=== PATIENT | male | born 1950 | race Caucasian/White ===

== ENCOUNTER → 2016-10-14 | Outpatient (CLI) | payer OTHER ==
[~2016-10-14] MED LIST: ASPEC81 PO; ATOR-24 PO; CHOL200027 PO; INSDGI SC; LOSA25TA18 PO; LSX/40 PO; METO1TAB69 PO; MULT-506 PO
[2016-10-14 17:30] LABS: ALT/SGPT 30 U/L (12-78); BLOOD UREA NITROGEN 43 mg/dl (7-18); CALCIUM 8.9 mg/dl (8.5-10.1); CARBON DIOXIDE 28 mmol/L (21-32); CHLORIDE 106 mmol/L (98-107); CHOLESTEROL 155 mg/dl (0-200); GLUCOSE 99 mg/dl (70-99); POTASSIUM 4.4 mmol/L (3.5-5.1); SODIUM 140 mmol/L (136-145)
[2016-10-14 17:34] LABS: HEMATOCRIT 36.1 % (42-52); MEAN CELL VOLUME 89.1 fL (80-100); MEAN CORPUSCULAR HEMOGLOBIN 30.1 pg (25-34); MEAN CORPUSCULAR HGB CONC 33.8 g/dl (32-36); MEAN PLATELET VOLUME 10.5 fL (7.4-10.4); PLATELET COUNT 151 K/uL (130-400); RED BLOOD COUNT 4.05 M/uL (4.7-6.1)
[2016-10-14 17:39] LABS: ALB/GLOB RATIO 0.8 (0.9-2); ALKALINE PHOSPHATASE 113 U/L (45-117); AST/SGOT 18 U/L (15-37); HDL CHOLESTEROL 39 mg/dl; LDL CHOLESTEROL CALCULATED 90 mg/dl; TRIGLYCERIDES 129 mg/dl (0-150); VERY LOW DENSITY LIPOPROT CALC 26 mg/dl
[2016-10-15 06:38] LABS: ESTIMATED AVERAGE GLUCOSE 194 mg/dl; HA1C FLAG Normal (Normal)
== END | disposition home or self-care (01) ==
LOC: C.LABBFT 16:40
PROVIDERS: ATTEND Internal Medicine
DX: E11.21 Type 2 diabetes mellitus with diabetic nephropathy (principal); E78.5 Hyperlipidemia, unspecified; I10 Essential (primary) hypertension; Z12.5 Encounter for screening for malignant neoplasm of prostate; E55.9 Vitamin D deficiency, unspecified

== ENCOUNTER → 2016-11-25 | Outpatient (CLI) | payer OTHER ==
[~2016-11-25] MED LIST changes: +METO100T44 PO; -METO1TAB69 PO
[2016-11-25 12:28] LABS: THYROID STIMULATING HORMONE 3.16 uIu/ml (0.300-4.500)
== END | disposition home or self-care (01) ==
LOC: C.LABBFT 09:32
PROVIDERS: ATTEND Internal Medicine
DX: E03.9 Hypothyroidism, unspecified (principal)

== ENCOUNTER → 2017-04-16 | Outpatient (CLI) | payer OTHER ==
[~2017-04-16] MED LIST changes: -METO100T44 PO; +METO1TAB69 PO
[2017-04-16 12:13] LABS: BASO % 0.1 %; BASO ABS # 0.01 K/uL (0-0.2); COMPLETE YES; EOS % 3.1 %; HEMATOCRIT 40.5 % (42-52); IG% 0.3 %; LYMPH ABS # 2.53 K/uL (1.2-3.4); MEAN CELL VOLUME 92.7 fL (80-100); MEAN CORPUSCULAR HEMOGLOBIN 29.3 pg (25-34); MEAN CORPUSCULAR HGB CONC 31.6 g/dl (32-36); MEAN PLATELET VOLUME 10.3 fL (7.4-10.4); MONO % 4.7 %; NEUT % 57.8 %; PLATELET COUNT 162 K/uL (130-400); RED BLOOD COUNT 4.37 M/uL (4.7-6.1); WHITE BLOOD COUNT 7.45 K/uL (4.8-10.8)
[2017-04-16 13:46] LABS: ESTIMATED AVERAGE GLUCOSE 177 mg/dl; HA1C FLAG Normal (Normal)
[2017-04-16 14:00] LABS: RATIO 1933.3 mcg/mg (0-30.0)
[2017-04-16 14:02] LABS: ALT/SGPT 26 U/L (12-78); BLOOD UREA NITROGEN 42 mg/dl (7-18); BUN/CREATININE RATIO 26.4 (10-20); CALCIUM 9.5 mg/dl (8.5-10.1); CARBON DIOXIDE 29 mmol/L (21-32); CHLORIDE 107 mmol/L (98-107); CHOLESTEROL 128 mg/dl (0-200); GLUCOSE 121 mg/dl (70-99); POTASSIUM 4.9 mmol/L (3.5-5.1); SODIUM 141 mmol/L (136-145); TRIGLYCERIDES 28 mg/dl (0-150); VERY LOW DENSITY LIPOPROT CALC 6 mg/dl
[2017-04-16 14:13] LABS: ALB/GLOB RATIO 0.8 (0.9-2); ALKALINE PHOSPHATASE 97 U/L (45-117); AST/SGOT 17 U/L (15-37); CHOLESTEROL/HDL RATIO 3.7; HDL CHOLESTEROL 35 mg/dl; LDL CHOLESTEROL CALCULATED 87 mg/dl
== END | disposition home or self-care (01) ==
LOC: C.LABBFT 10:58
PROVIDERS: ATTEND Internal Medicine
DX: E11.21 Type 2 diabetes mellitus with diabetic nephropathy (principal)

== ENCOUNTER → 2017-05-30 | Outpatient (CLI) | payer OTHER ==
--- NOTE | 2017-05-30 08:44 | DIAGNOSTIC IMAGING REPORT ---
RENAL ULTRASOUND CLINICAL HISTORY: Hypertension. Chronic kidney disease. COMPARISON STUDY: Renal ultrasound February 03, 2012. TECHNIQUE: Sonography of the kidneys and the urinary bladder was performed. FINDINGS: The right kidney measures 11.3 x 5.9 x 5.3 cm and the left measures 12.1 x 6.1 x 5.7 cm. There is no hydronephrosis. Renal echogenicity, size and cortical thickness are normal. No calculi or masses are identified by sonography. Bladder is unremarkable by sonography. IMPRESSION: Normal renal ultrasound. No hydronephrosis. Electronically signed by: Unruly Sanchez M.D. 05/30/2017 8:43 AM Dictated Date/Time: 05/30/2017 8:42 AM
== END | disposition home or self-care (01) ==
LOC: C.ULTR 07:22
PROVIDERS: ATTEND Internal Medicine Nephrology
DX: I12.9 Hypertensive chronic kidney disease with stage 1 through stage 4 chronic kidney disease, or unspecified chronic kidney disease (principal); N18.1 Chronic kidney disease, stage 1; E55.9 Vitamin D deficiency, unspecified; D63.8 Anemia in other chronic diseases classified elsewhere; R60.9 Edema, unspecified; R80.9 Proteinuria, unspecified

== ENCOUNTER → 2017-06-11 | Outpatient (CLI) | payer OTHER ==
[~2017-06-11] MED LIST changes: +METO100T44 PO; -METO1TAB69 PO
[2017-06-11 08:44] LABS: PATIENT HEIGHT 175.3 cm
[2017-06-11 09:30] LABS: MEAN CELL VOLUME 90.5 fL (80-100); MEAN CORPUSCULAR HEMOGLOBIN 30.1 pg (25-34); MEAN CORPUSCULAR HGB CONC 33.2 g/dl (32-36); MEAN PLATELET VOLUME 10.6 fL (7.4-10.4); PLATELET COUNT 145 K/uL (130-400); RED BLOOD COUNT 4.09 M/uL (4.7-6.1); WHITE BLOOD COUNT 7.03 K/uL (4.8-10.8)
[2017-06-11 09:32] LABS: URINE APPEARANCE CLEAR (CLEAR); URINE BILIRUBIN NEG (NEG); URINE COLOR YELLOW; URINE NITRITE NEG (NEG); URINE SPECIFIC GRAVITY 1.013 (1.000-1.030); UROBILINOGEN NEG (NEG)
[2017-06-11 09:34] LABS: MANUAL MICROSCOPIC REQUIRED? NO; REVIEW REQ? NO
[2017-06-11 09:49] LABS: CREATININE, URINE 28.1 mg/dl; URINE PROTIEN/CREAT RATIO 1.7 (0-0.2); URINE TOTAL PROTEIN 48.9 mg/dl (0-11.9)
[2017-06-11 10:04] LABS: ALT/SGPT 25 U/L (12-78); BLOOD UREA NITROGEN 36 mg/dl (7-18); BUN/CREATININE RATIO 25.2 (10-20); CALCIUM 9.1 mg/dl (8.5-10.1); CARBON DIOXIDE 27 mmol/L (21-32); CHLORIDE 110 mmol/L (98-107); CREATININE 1.43 mg/dl (0.60-1.40); GLUCOSE 94 mg/dl (70-99); SODIUM 142 mmol/L (136-145)
[2017-06-11 10:07] LABS: ALB/GLOB RATIO 0.8 (0.9-2); ALKALINE PHOSPHATASE 100 U/L (45-117); AST/SGOT 19 U/L (15-37)
[2017-06-11 10:30] LABS: CREATININE, URINE 73.8 mg/dl; URINE TOTAL PROTEIN 75.7 mg/dl (0-11.9)
[2017-06-11 11:20] LABS: CREATININE 1.44 mg/dl (0.6-1.4); URINE TOTAL PROTEIN CALC 1457.2 mg/24 hr (0-149.1)
[2017-06-13 07:15] LABS: ALBUMIN 3.6 G/DL (3.8-4.8); ALBUMIN % 84.18 %; ALPHA-2-GLOBULIN % 2.49 %; CREATININE UR 35 MG/DL (20-370); FREE KAPPA 71.1 MG/L (3.3-19.4); FREE KAPPA/LAMBDA RATIO 1.82 (0.26-1.65); FREE LAMBDA 39.1 MG/L (5.7-26.3); GAMMA GLOBULIN 1.2 G/DL (0.8-1.7); GAMMA GLOBULIN % 5.49 %
== END | disposition home or self-care (01) ==
LOC: C.LAB 08:28
PROVIDERS: ATTEND Internal Medicine Nephrology
DX: I12.9 Hypertensive chronic kidney disease with stage 1 through stage 4 chronic kidney disease, or unspecified chronic kidney disease (principal); N18.1 Chronic kidney disease, stage 1; D63.8 Anemia in other chronic diseases classified elsewhere; R60.9 Edema, unspecified; R80.9 Proteinuria, unspecified; E55.9 Vitamin D deficiency, unspecified

== ENCOUNTER → 2017-11-14 | Outpatient (CLI) | payer OTHER ==
[2017-11-14 12:22] LABS: BASO % 0.1 %; BASO ABS # 0.01 K/uL (0-0.2); EOS ABS # 0.28 K/uL (0-0.5); HEMATOCRIT 38.3 % (42-52); HEMOGLOBIN 12.5 g/dL (14.0-18.0); IG# 0.01 K/uL (0.00-0.02); LYMPH % 28.4 %; LYMPH ABS # 1.98 K/uL (1.2-3.4); MEAN CELL VOLUME 91.4 fL (80-100); MEAN CORPUSCULAR HEMOGLOBIN 29.8 pg (25-34); MEAN CORPUSCULAR HGB CONC 32.6 g/dl (32-36); MEAN PLATELET VOLUME 10.4 fL (7.4-10.4); MONO ABS # 0.42 K/uL (0.11-0.59); NEUT % 61.4 %; NEUT ABS # 4.28 K/uL (1.4-6.5); PLATELET COUNT 134 K/uL (130-400); RED CELL DISTRIBUTION WIDTH CV 13.2 % (11.5-14.5); RED CELL DISTRIBUTION WIDTH SD 44.2 fL (36.4-46.3); WHITE BLOOD COUNT 6.98 K/uL (4.8-10.8)
[2017-11-14 12:41] LABS: HEMOGLOBIN A1C 6.9 % (4.5-5.6)
[2017-11-14 12:54] LABS: ALBUMIN 3.5 gm/dl (3.4-5.0); ALT/SGPT 28 U/L (12-78); BLOOD UREA NITROGEN 40 mg/dl (7-18); CALCIUM 8.8 mg/dl (8.5-10.1); CARBON DIOXIDE 27 mmol/L (21-32); CHOLESTEROL 131 mg/dl (0-200); GLUCOSE 128 mg/dl (70-99); POTASSIUM 4.6 mmol/L (3.5-5.1); SODIUM 141 mmol/L (136-145)
[2017-11-14 12:57] LABS: ALKALINE PHOSPHATASE 98 U/L (45-117); AST/SGOT 15 U/L (15-37); LDL CHOLESTEROL CALCULATED 74 mg/dl; TOTAL PROTEIN 7.4 gm/dl (6.4-8.2)
== END | disposition home or self-care (01) ==
LOC: C.LABBFT 09:54
PROVIDERS: ATTEND Physician Assistant Medical
DX: E11.9 Type 2 diabetes mellitus without complications (principal)

== ENCOUNTER 2021-01-23 23:50 | Inpatient (IN) ==
[2021-01-24] MEDS ORDERED: ACETAMINOPHEN 1,000 MG/100 ML VIAL IV STA (00:31)
[2021-01-24] MEDS ORDERED: SODIUM CHLORIDE 0.9% 500 ML IV ONE (00:31)
[2021-01-24 00:43] LABS: Basophils # (auto) 0.01 K/uL (0-0.2); Basophils % (auto) 0.2 %; Eosinophils # (auto) 0.01 K/uL (0-0.5); Eosinophils % (auto) 0.2 %; Hematocrit (blood only) 33.2 % (42-52); Hemoglobin 11.3 g/dL (14.0-18.0); Immature Granulocytes # (auto) 0.01 K/uL (0.00-0.02); Immature Granulocytes % (auto) 0.2 %; Lymphocytes # (auto) 0.23 K/uL (1.2-3.4); Lymphocytes % (auto) 4.8 %; Mean Corpuscular Hemoglobin 31.6 pg (25-34); Mean Corpuscular Volume 92.7 fL (80-100); Mean Platelet Volume 9.4 fL (7.4-10.4); Monocytes # (auto) 0.19 K/uL (0.11-0.59); Monocytes % (auto) 3.9 %; Neutrophils # (auto) 4.38 K/uL (1.4-6.5); Neutrophils % (auto) 90.7 %; Platelet Count 125 K/uL (130-400); RDW Coefficient of Variation 13.2 % (11.5-14.5); RDW Standard Deviation 45.5 fL (36.4-46.3); Red Blood Count 3.58 M/uL (4.7-6.1); White Blood Count 4.83 K/uL (4.8-10.8)
[2021-01-24 00:51] LABS: Alanine Aminotransferase 28 U/L (12-78); Albumin Level 3.7 gm/dl (3.4-5.0); Aspartate Aminotransferase 28 U/L (15-37); BUN Creatinine Ratio 20.6 (10-20); Bilirubin Direct 0.2 mg/dl (0-0.2); Blood Urea Nitrogen 85 mg/dl (7-18); Calcium 8.7 mg/dl (8.5-10.1); Carbon Dioxide 23 mmol/L (21-32); Chloride 99 mmol/L (98-107); Creatinine Clr Calc Pharmacy 22.6 ml/min; Est GFR (Non-African American) 13.8 ml/min; Glucose 64 mg/dl (70-99); Magnesium 1.8 mg/dl (1.8-2.4); Potassium 4.2 mmol/L (3.5-5.1); Sodium 134 mmol/L (136-145)
[2021-01-24 00:59] LABS: RBC Morphology Unremarkable
[2021-01-24 01:05] LABS: Albumin Globulin Ratio 0.8 (0.9-2); Alkaline Phosphatase 67 U/L (45-117); Bilirubin,Total 0.6 mg/dl (0.2-1); Creatine Kinase 1442 U/L (39-308); Globulin 4.4 gm/dl (2.5-4.0); Phosphorus 6.1 mg/dl (2.5-4.9); Total Protein 8.1 gm/dl (6.4-8.2); Troponin I < 0.015 ng/ml (0-0.045)
[2021-01-24] MEDS ORDERED: DEXTROSE 50% 50 ML SYRINGE IV ONE ×2 (02:40→07:45)
--- NOTE | 2021-01-24 03:12 | Emergency Department Note ---
Impression & Plan Syncope, Hypoglycemia associated with diabetes, Elevated CPK, CKD (chronic kidney disease) ED Provider Note NAME: CARLA BOLES AGE: 70 SEX: M ARRIVES VIA: Ambulance INFORMANT: Patient, ED PROVIDER(S): Osvaldo Ribeiro MD CHIEF COMPLAINT: Hypoglycemia PLAN: Disposition: MEDICAL DECISION MAKING: The patient is a pleasant 70-year-old gentleman with a past medical history of hypertension, hyperlipidemia, diabetes who presents to the emergency department for evaluation after having syncopal episode found to be hypoglycemic by EMS which occurs in the setting of the patient's report of having decreased oral intake and taking bowel prep in preparation for colonoscopy that was scheduled for tomorrow morning. The patient reports despite his decreased oral intake he did take his insulin/Lantus as usual yesterday and today. Patient reports sitt ing at the edge of his bed and then remembers waking up on the ground. He does not feel as though he hit his head and denies any complaints of pain. He does have minor skin tears of bilateral pretibial region of the lower legs without laceration. Otherwise prior to today he denies any fevers, chills, cough, congestion, vomiting. He reports the scheduled colonoscopy is to evaluate for months of ongoing loose stools which she reports occurs anytime he attempts to eat anything. On arrival the patient is fatigued appearing but in no acute distress, afebrile with stable vital signs. He appears clinically dry. He has no focal neurologic deficits. Minor skin tears of bilateral pretibial region of the lower legs without laceration. EKG without overt acute ischemia. CXR without overt acute cardiopulmonary process and similar to prior per my preliminary review.. WBC within normal limits. H/H 11.3/33.2 and platelets 125K approximately prior range of values. Chemistry without metabolic acidosis. Creatinine 4 within patient's baseline range in setting of CKD. Initial chemistry glucose 64. She was treated with D50 and given food. LFTs unremarkable. CPK slightly elevated 1400 in setting of the patient's syncope/fall. Troponin negative/undetectable. CT head negative for acute process per preliminary [facility] report. Patient signed out to Dr. Schultz at change of shift with reevaluation and repeat BSG pending for final disposition. Triage Nursing notes reviewed and agree them. Prior medical records reviewed Vital Signs: reviewed and remarkable for no significant abnormalities Differential diagnosis: Vasovagal event, dehydration, infection, hypoglycemia, electrolyte abnormalities, cardiac sources, intracerebral event, pulmonary embolism, seizure, toxicologic, neurologic, as well as other pathologies. ER treatment provided: See below. Diagnostics interpreted by me: ECG: Sinus rhythm with psvcs, 76 bpm, no ectopy, incomplete right bundle branch block, LVH, no overt ST elevation or depression. Cardiac Monitoring: An order for continuous cardiac monitoring was placed and demonstrated Sinus rhythm with psvcs, 76 bpm, no ectopy. Laboratory studies: See below Imaging studies: [facility] Preliminary Findings Only See Final Report For Complete Findings CT HEAD: Small posterior left parietal scalp hematoma, possibly chronic. No skull fracture is seen. The paranasal sinuses and mastoid air cells are within normal limits. Unremarkable appearance of the brain. No evidence of acute large vessel infarct or intracranial hemorrhage. Radiologist: Kevin Cohen MD Study ready at 02:27 and initial results transmitted at 02:56 HPI: The patient is a pleasant 70-year-old gentleman with a past medical history of hypertension, hyperlipidemia, diabetes who presents emergency department for evaluation after having syncopal episode found to be hypoglycemic by EMS which occurs in the setting of the patient's report of having decreased oral intake and taking bowel prep in preparation for colonoscopy that was scheduled for tomorrow morning. The patient reports despite his decreased oral intake he did take his insulin/Lantus as usual yesterday and today. Patient reports sitting at the edge of his bed and then remembers waking up on the ground. He does not feel as though he hit his head and denies any complaints of pain. He does have minor skin tears of bilateral pretibial region of the lower legs without laceration. Otherwise prior to today he denies any fevers, chills, cough, congestion, vomiting. He reports the scheduled colonoscopy is to evaluate for months of ongoing loose stools which she reports occurs anytime he attempts to eat anything. ROS: See above HPI for pertinent positives & negatives. A total of 10 systems reviewed and were otherwise negative. PAST MEDICAL HISTORY:See Below PAST SURGICAL HISTORY:See Below FAMILY HISTORY:See Below SOCIAL HISTORY:See Below HOME MEDICATIONS:See Below ALLERGIES:See Below VITALS:See Below PHYSICAL EXAMINATION: GENERAL: Awake, alert, fatigued-appearing, in no distress, BMI 44.0. HENT: Normocephalic, atraumatic. Oropharynx with dry mucous membranes and otherwise unremarkable. EYES: Normal conjunctiva. Sclera non-icteric. EOMI. No nystamgus. PEARRL. NECK: Supple. No nuchal rigidity. FROM. No JVD. No C spine tenderness to palpation or step-offs. RESPIRATORY: Clear to auscultation. CARDIAC: Regular rate, normal rhythm. Extremities warm and well perfused. Pulses equal. ABDOMEN: Soft, non-distended. No tenderness to palpation. No rebound or guarding. No masses. RECTAL: Deferred. MUSCULOSKELETAL: Chest examination reveals no tenderness. The back is symmetrical on inspection without obvious abnormality. No TL spine tenderness to palpation or step-offs. There is no CVA tenderness to palpation. No joint edema. LOWER EXTREMITIES: Calves are equal size bilaterally and non-tender. No edema. No discoloration. NEURO: Normal sensorium. No sensory or motor deficits noted. 5/5 strength and SILT x 4 extremities. Cerebellar function intact including [id number], alternating palms, [id number]. Ovsaldo Ribeiro MD Past Med/Surg History Medical History Chronic kidney disease Congestive heart failure Diabetes mellitus, type 2 Diabetic foot ulcer associated with type 2 diabetes mellitus Dyslipidemia Foot drop RT FOOT (WEARS BRACE) Gait disturbance History of diabetic ulcer of foot Hx of gout Hypertension Sleep apnea NO DEVICE CURRENTLY Type 2 diabetes mellitus with retinopathy Vitamin D deficiency Surgical History Amputated toe of right foot History of cataract surgery RT/LEFT History of colonoscopy Family History Mother Pancreatic cancer Breast cancer Family history of diabetes mellitus Father Myocardial infarction Brother Prostate cancer Other No family history of adverse response to anesthesia Denies family history of Coronary heart disease Colorectal cancer Social History Smoking Status: Never smoker Second Hand Exposure: No; Hx Alcohol Use: No Hx Substance Use: No Preferred Language: Citizen Of [place] Communication Ability: Effective Hearing Ability: Normal Maintenance Director Required: No Beliefs That Will Affect Care: None Current Living Situation: Alone current occupational status: disabled Feels Safe at Home: Yes Childhood Exposure to Second-Hand Smoke: No caffeine: No during the past year weight has: remained stable Dental Care, Regularly: Yes Physical Activity Frequency: Does not Exercise Seatbelt Use: always Sunscreen Use: No Assistive Devices: Brace/Splint/Immobilizer, Cane, Denture - Upper, Denture - Lower, Glasses and Walker Allergies Allergies Allergy/AdvReac Type Severity Reaction Status Date / Time metformin Allergy Intermediate GI SYMPTOMS Verified 01/24/21 01:19 isosorbide Allergy Mild Rash Verified 01/24/21 01:19 lisinopril Allergy Unknown CAN'T Verified 01/24/21 01:19 REMEMBER Home Meds Home Medications Medication Instructions Recorded Confirmed acetaminophen 325 mg capsule 325 mg PO QID PRN 04/26/20 01/24/21 Previous Rx's Medication Instructions Recorded pen needle, diabetic 31 gauge x #100 ea 02/10/1910/31" amlodipine [Norvasc] 5 mg PO QAM #30 tab 04/22/20 aspirin 81 mg tablet,delayed 81 mg PO DAILY #90 tab 06/06/20 release loperamide 2 mg tablet 2 mg PO QID PRN #360 tab 07/17/20 metoprolol succinate 100 mg 100 mg PO QAM #90 tab 07/20/20 tablet,extended release 24 hr atorvastatin 40 mg tablet 40 mg PO QPM #90 tab 11/13/20 calcitriol 0.5 mcg capsule 1 mcg PO DAILY #180 cap 12/14/20 furosemide 40 mg tablet 40 mg PO .COMPLEX #360 tab 12/14/20 allopurinol 100 mg tablet 50 mg PO DAILY #15 tab 01/16/21 insulin glargine 100 unit/mL (3 45 unit SQ PM #45 ml 01/16/21 mL) subcutaneous pen Results & Data (ED) Vital Signs Vital Signs - 24 hr 01/23/21 23:58 01/24/21 00:05 01/24/21 00:12 Temperature 37.1 C Temperature Source Oral Pulse Rate 78 75 75 Pulse Rate [Bilateral Apical] Pulse Rate from SpO2 Sensor 76 75 Pulse Rhythm Respiratory Rate 18 21 23 Respiratory Depth Normal Blood Pressure 111/58 L 100/49 L Blood Pressure [Left Arm] Blood Pressure Mean 75 66 Blood Pressure Mean [Left Arm] Pulse Oximetry 99 90 90 Oxygen Delivery Method Room Air Sepsis Recent Fever Within 48 Hours No Sepsis New/Unexplained Change in Mental Status No Sepsis Action Taken by Nursing No Action Required 01/24/21 00:15 01/24/21 00:20 01/24/21 00:30 Temperature Temperature Source Pulse Rate 76 79 79 Pulse Rate [Bilateral Apical] Pulse Rate from SpO2 Sensor 73 80 Pulse Rhythm Respiratory Rate 20 19 27 H Respiratory Depth Blood Pressure 130/71 Blood Pressure [Left Arm] Blood Pressure Mean 90 Blood Pressure Mean [Left Arm] Pulse Oximetry 92 95 Oxygen Delivery Method Sepsis Recent Fever Within 48 Hours Sepsis New/Unexplained Change in Mental Status Sepsis Action Taken by Nursing 01/24/21 00:44 01/24/21 00:50 01/24/21 00:54 Temperature Temperature Source Pulse Rate 82 77 79 Pulse Rate [Bilateral Apical] Pulse Rate from SpO2 Sensor 105 H Pulse Rhythm Respiratory Rate 14 24 23 Respiratory Depth Blood Pressure 149/78 H Blood Pressure [Left Arm] Blood Pressure Mean 101 Blood Pressure Mean [Left Arm] Pulse Oximetry 83 L Oxygen Delivery Method Sepsis Recent Fever Within 48 Hours Sepsis New/Unexplained Change in Mental Status Sepsis Action Taken by Nursing 01/24/21 00:56 01/24/21 01:00 01/24/21 01:01 Temperature Temperature Source Pulse Rate 74 74 Pulse Rate [Bilateral Apical] Pulse Rate from SpO2 Sensor 74 74 Pulse Rhythm Regular Respiratory Rate 25 H 21 Respiratory Depth Blood Pressure 143/75 H Blood Pressure [Left Arm] Blood Pressure Mean 97 Blood Pressure Mean [Left Arm] Pulse Oximetry 88 L 90 Oxygen Delivery Method Room Air Sepsis Recent Fever Within 48 Hours Sepsis New/Unexplained Change in Mental Status Sepsis Action Taken by Nursing 01/24/21 01:10 01/24/21 01:34 01/24/21 01:40 Temperature Temperature Source Pulse Rate 72 76 73 Pulse Rate [Bilateral Apical] Pulse Rate from SpO2 Sensor 72 77 Pulse Rhythm Respiratory Rate 26 H 10 L 20 Respiratory Depth Blood Pressure Blood Pressure [Left Arm] Blood Pressure Mean Blood Pressure Mean [Left Arm] Pulse Oximetry 89 L 87 L Oxygen Delivery Method Sepsis Recent Fever Within 48 Hours Sepsis New/Unexplained Change in Mental Status Sepsis Action Taken by Nursing 01/24/21 01:45 01/24/21 01:50 01/24/21 02:38 Temperature Temperature Source Pulse Rate 73 81 73 Pulse Rate [Bilateral Apical] Pulse Rate from SpO2 Sensor 157 H 75 Pulse Rhythm Respiratory Rate 15 17 26 H Respiratory Depth Blood Pressure 134/78 135/67 Blood Pressure [Left Arm] Blood Pressure Mean 96 89 Blood Pressure Mean [Left Arm] Pulse Oximetry 81 L 94 Oxygen Delivery Method Sepsis Recent Fever Within 48 Hours Sepsis New/Unexplained Change in Mental Status Sepsis Action Taken by Nursing 01/24/21 02:39 01/24/21 02:40 01/24/21 04:08 Temperature Temperature Source Pulse Rate 73 75 Pulse Rate [Bilateral Apical] 77 Pulse Rate from SpO2 Sensor 74 75 Pulse Rhythm Respiratory Rate 21 13 20 Respiratory Depth Blood Pressure Blood Pressure [Left Arm] 163/85 H Blood Pressure Mean Blood Pressure Mean [Left Arm] 111 Pulse Oximetry 95 94 95 Oxygen Delivery Method Sepsis Recent Fever Within 48 Hours Sepsis New/Unexplained Change in Mental Status Sepsis Action Taken by Nursing 01/24/21 04:42 01/24/21 05:49 Temperature Temperature Source Pulse Rate Pulse Rate [Bilateral Apical] 77 82 Pulse Rate from SpO2 Sensor Pulse Rhythm Respiratory Rate 20 20 Respiratory Depth Blood Pressure Blood Pressure [Left Arm] 172/90 H 190/87 H Blood Pressure Mean Blood Pressure Mean [Left Arm] 117 121 Pulse Oximetry 95 95 Oxygen Delivery Method Room Air Room Air Sepsis Recent Fever Within 48 Hours Sepsis New/Unexplained Change in Mental Status Sepsis Action Taken by Nursing Laboratory Data Attestation: I reviewed the patient's lab results. Result diagrams: 01/24/21 00:05 01/24/21 00:05 Lab Results 01/23/21 01/24/21 01/24/21 Range/Units 23:59 00:05 00:05 WBC 4.83 (4.8-10.8) K/uL RBC 3.58 L (4.7-6.1) M/uL Hgb 11.3 L (14.0-18.0) g/dL Hct 33.2 L (42-52) % MCV 92.7 (80-100) fL MCH 31.6 (25-34) pg MCHC 34.0 (32-36) g/dL RDW Std Deviation 45.5 (36.4-46.3) fL RDW Coeff of Millie 13.2 (11.5-14.5) % Plt Count 125 L (130-400) K/uL MPV 9.4 (7.4-10.4) fL Immature Gran % (Auto) 0.2 % Neut % (Auto) 90.7 % Lymph % (Auto) 4.8 % Prentiss % (Auto) 3.9 % Eos % (Auto) 0.2 % Baso % (Auto) 0.2 % Neut # (Auto) 4.38 (1.4-6.5) K/uL Lymph # (Auto) 0.23 L (1.2-3.4) K/uL Prentiss # (Auto) 0.19 (0.11-0.59) K/uL Eos # (Auto) 0.01 (0-0.5) K/uL Baso # (Auto) 0.01 (0-0.2) K/uL Immature Gran # (Auto) 0.01 (0.00-0.02) K/uL RBC Morphology Unremarkable Sodium 134 L (136-145) mmol/L Potassium 4.2 (3.5-5.1) mmol/L Chloride 99 (98-107) mmol/L Carbon Dioxide 23 (21-32) mmol/L Anion Gap 12.0 H (3-11) BUN 85 H (7-18) mg/dl Creatinine 4.14 H (0.6-1.4) mg/dl Est Cr Clr Drug Dosing 22.6 ml/min Est GFR ( Amer) 16.0 ml/min Est GFR (Non-Af Amer) 13.8 ml/min BUN/Creatinine Ratio 20.6 H (10-20) Glucose 64 L (70-99) mg/dl POC Glucose 94 (70-99) mg/dl Calcium 8.7 (8.5-10.1) mg/dl Phosphorus 6.1 H (2.5-4.9) mg/dl Magnesium 1.8 (1.8-2.4) mg/dl Total Bilirubin 0.6 (0.2-1) mg/dl Direct Bilirubin 0.2 (0-0.2) mg/dl AST 28 (15-37) U/L ALT 28 (12-78) U/L Alkaline Phosphatase 67 (45-117) U/L Total Creatine Kinase 1442 H (39-308) U/L Troponin I < 0.015 (0-0.045) ng/ml Total Protein 8.1 (6.4-8.2) gm/dl Albumin 3.7 (3.4-5.0) gm/dl Globulin 4.4 H (2.5-4.0) gm/dl Albumin/Globulin Ratio 0.8 L (0.9-2) 01/24/21 01/24/21 01/24/21 Range/Units 02:21 02:22 02:59 WBC (4.8-10.8) K/uL RBC (4.7-6.1) M/uL Hgb (14.0-18.0) g/dL Hct (42-52) % MCV (80-100) fL MCH (25-34) pg MCHC (32-36) g/dL RDW Std Deviation (36.4-46.3) fL RDW Coeff of Millie (11.5-14.5) % Plt Count (130-400) K/uL MPV (7.4-10.4) fL Immature Gran % (Auto) % Neut % (Auto) % Lymph % (Auto) % Prentiss % (Auto) % Eos % (Auto) % Baso % (Auto) % Neut # (Auto) (1.4-6.5) K/uL Lymph # (Auto) (1.2-3.4) K/uL Prentiss # (Auto) (0.11-0.59) K/uL Eos # (Auto) (0-0.5) K/uL Baso # (Auto) (0-0.2) K/uL Immature Gran # (Auto) (0.00-0.02) K/uL RBC Morphology Sodium (136-145) mmol/L Potassium (3.5-5.1) mmol/L Chloride (98-107) mmol/L Carbon Dioxide (21-32) mmol/L Anion Gap (3-11) BUN (7-18) mg/dl Creatinine (0.6-1.4) mg/dl Est Cr Clr Drug Dosing ml/min Est GFR ( Amer) ml/min Est GFR (Non-Af Amer) ml/min BUN/Creatinine Ratio (10-20) Glucose (70-99) mg/dl POC Glucose 44 L* 47 L* 162 H (70-99) mg/dl Calcium (8.5-10.1) mg/dl Phosphorus (2.5-4.9) mg/dl Magnesium (1.8-2.4) mg/dl Total Bilirubin (0.2-1) mg/dl Direct Bilirubin (0-0.2) mg/dl AST (15-37) U/L ALT (12-78) U/L Alkaline Phosphatase (45-117) U/L Total Creatine Kinase (39-308) U/L Troponin I (0-0.045) ng/ml Total Protein (6.4-8.2) gm/dl Albumin (3.4-5.0) gm/dl Globulin (2.5-4.0) gm/dl Albumin/Globulin Ratio (0.9-2) 01/24/21 01/24/21 Range/Units 04:19 05:08 WBC (4.8-10.8) K/uL RBC (4.7-6.1) M/uL Hgb (14.0-18.0) g/dL Hct (42-52) % MCV (80-100) fL MCH (25-34) pg MCHC (32-36) g/dL RDW Std Deviation (36.4-46.3) fL RDW Coeff of Millie (11.5-14.5) % Plt Count (130-400) K/uL MPV (7.4-10.4) fL Immature Gran % (Auto) % Neut % (Auto) % Lymph % (Auto) % Prentiss % (Auto) % Eos % (Auto) % Baso % (Auto) % Neut # (Auto) (1.4-6.5) K/uL Lymph # (Auto) (1.2-3.4) K/uL Prentiss # (Auto) (0.11-0.59) K/uL Eos # (Auto) (0-0.5) K/uL Baso # (Auto) (0-0.2) K/uL Immature Gran # (Auto) (0.00-0.02) K/uL RBC Morphology Sodium (136-145) mmol/L Potassium (3.5-5.1) mmol/L Chloride (98-107) mmol/L Carbon Dioxide (21-32) mmol/L Anion Gap (3-11) BUN (7-18) mg/dl Creatinine (0.6-1.4) mg/dl Est Cr Clr Drug Dosing ml/min Est GFR ( Amer) ml/min Est GFR (Non-Af Amer) ml/min BUN/Creatinine Ratio (10-20) Glucose (70-99) mg/dl POC Glucose 107 H 77 (70-99) mg/dl Calcium (8.5-10.1) mg/dl Phosphorus (2.5-4.9) mg/dl Magnesium (1.8-2.4) mg/dl Total Bilirubin (0.2-1) mg/dl Direct Bilirubin (0-0.2) mg/dl AST (15-37) U/L ALT (12-78) U/L Alkaline Phosphatase (45-117) U/L Total Creatine Kinase (39-308) U/L Troponin I (0-0.045) ng/ml Total Protein (6.4-8.2) gm/dl Albumin (3.4-5.0) gm/dl Globulin (2.5-4.0) gm/dl Albumin/Globulin Ratio (0.9-2) Administered Medications Discontinued Medications Dextrose (Dextrose 50% 50 Ml Syringe) 50 ml IV NOW ONE Stop: 01/24/21 02:41 Last Admin: 01/24/21 02:42 Dose: 50 ml Documented by: [id number] Sodium Chloride (Nss) 500 mls @ 999 mls/hr IV .Q31M ONE Stop: 01/24/21 01:01 Last Infusion: 01/24/21 01:57 Dose: 999 mls/hr Documented by: [id number] Admin: 01/24/21 00:46 Dose: 999 mls/hr Documented by: [id number] Acetaminophen (Ofirmev) 1,000 mg in 100 mls @ 400 mls/hr IV NOW STA Stop: 01/24/21 00:45 Last Infusion: 01/24/21 01:57 Dose: 400 mls/hr Documented by: [id number] Admin: 01/24/21 00:46 Dose: 400 mls/hr Documented by: [id number] Ondansetron HCl (Ondansetron Inj 2 Mg/Ml 2 Ml Vial) 4 mg IV NOW STA Stop: 01/24/21 05:42 Last Admin: 01/24/21 05:49 Dose: 4 mg Documented by: [id number] Discharge Plan Visit Data Chief Complaint: Hypoglycemia Stated Complaint: FALL/HYPOGLYCEMIA/WEAK ED Provider: Mumtaz Schultz Discharge Problem: Syncope, Hypoglycemia associated with diabetes, Elevated CPK, CKD (chronic kidney disease) Discharge Instructions Krames/Other Patient Handouts: ED Diabetic Insulin Reaction, ED Fainting, Uncertain Cause Activity Restrictions/Additional Instructions: Please follow up with your primary care physician in the next 1-3 days for re- evaluation. You were seen in emergency department for fainting episode that is suspected to be related to taking your insulin while fasting in preparation for your scheduled colonoscopy. Your blood sugar did continue to be low and was treated with IV glucose. You were also noted to have slightly elevated muscle protein likely related to your fall. This should be repeated when following up with your doctor. Otherwise, your exam, EKG, xray, and preliminary report of the CT scan of your head, and lab results did not show signs of an emergent condition at this time. Ensure hydration. Return to the emergency department for worsening symptoms as described in the accompanying instructions. Forms Stand Alone Forms: My [facility] mWater Prescriptions Prescriptions: No Action (DME) pen needle, diabetic [BD Ultra-Fine Mini Pen Needle] 31 gauge x 3/16" needle See Dose Instructions .ROUTE .MEDSUPPLY Qty: 100 RF: 5 acetaminophen 325 mg capsule 325 mg PO QID PRN (Reason: Pain) RF: 0 loperamide [Imodium A-D] 2 mg tablet 2 mg PO QID PRN (Reason: loose stool) Qty: 360 RF: 3 metoprolol succinate 100 mg tablet extended release 24 hr 100 mg PO QAM Qty: 90 RF: 3 atorvastatin 40 mg tablet 40 mg PO QPM Qty: 90 RF: 3 furosemide 40 mg tablet 40 mg PO .COMPLEX Qty: 360 RF: 3 Lantus Solostar U-100 Insulin 100 unit/mL (3 mL) insulin pen 45 unit SQ PM Qty: 45 RF: 5 allopurinol 100 mg tablet 50 mg PO DAILY Qty: 15 RF: 5 aspirin [Adult Low Dose Aspirin] 81 mg tablet,delayed release (DR/EC) 81 mg PO DAILY Qty: 90 RF: 3 calcitriol 0.5 mcg capsule 1 mcg PO DAILY Qty: 180 RF: 3 amlodipine [Norvasc] 5 mg Tablet 5 mg PO QAM Qty: 30 RF: 0 Referrals Referrals: Loco Garcia III, MD [Primary Care Provider] -
--- NOTE | 2021-01-24 03:24 | Emergency Department Note ---
ED Visit Note Received patient in signout. History and physical verified by me. Patient sugar continued to fall here in the emergency department. Every time the patient ate something he also has a bowel movement. Based on this I do feel the patient should be admitted. I did discuss the case with the hospitalist service who did agree to meet the patient. . : CKD (chronic kidney disease) Qualifiers: Chronic kidney disease stage: unspecified stage Qualified Code(s): N18.9 - Chronic kidney disease, unspecified
[2021-01-24] MEDS ORDERED: ONDANSETRON INJ 2 MG/ML 2 ML VIAL IV STA (05:41)
--- NOTE | 2021-01-24 06:20 | History & Physical Report ---
Date of Service January 24, 2021 Assessment & Plan (1) Hypoglycemia associated with diabetes: Patient NPO in preparation for colonoscopy. Take a large dose of insulin, 55 units last evening at 1900. Patient with ongoing hypoglycemia -Admit to medical -Fingerstick q hourly -D5W at 100mL/hr -Encourage PO as tolerated -Will hold insulin Present on Admission?: Yes (2) CKD (chronic kidney disease): Patient with ongoing hypoglycemia patient with baseline elevated BUN and creatinine near baseline.Patient with no acute need for dialysis.Patient with no acute need for dialysis. Avoid nephrotoxic agents Continue to monitor renal function IV fluids as above Present on Admission?: Yes (3) Elevated CPK: Most likely secondary to fall with prolonged downtime. IV fluids as above Repeat CK Present on Admission?: Yes (4) Hypertension: Elevated blood pressure Continue home medications Continue to monitor Present on Admission?: Yes (5) Dyslipidemia: Chronic. Continue statin D5 at 100mL/hr, monitor blood sugars, CC diet Present on Admission?: Yes History of Present Illness Chief Complaint: Hypoglycemia Primary Care Provider: Loco Garcia MD Greg Arias is a 70-year-old male with history of diabetes, hyperlipidemia, CKD, hypertension, gout.Patient presents to [facility] today with symptomatic hypoglycemia. Patient was preparing for colonoscopy. He was n.p.o., last solid food intake was 01/22/2021.Patient did take his Lantus last night at 1900- 55 units. Of note, his Lantus was just increased from 50 units at night to 55 units at night and this was his first dose of 55 unit.After the Lantus, patient passed out. EMS was called patient found to be hypoglycemic with blood sugar reportedly in the 30s. Upon arrival patient's blood sugar found to be 64. Fingersticks ranging from 44-162. Patient was administered D50. He is complaining of tremors, SCHMID and nausea. Otherwise, no acute complaints. He has longstanding history of intermittent diarrhea - reports watery stools often after PO intake, tenesmus and fecal incontinence ongoing x 10 years. He was to have a colonoscopy performed by Dr. Terry for workup of this issue In the ER patient afebrile, HD stable, NAD Allergies Allergy/AdvReac Type Severity Reaction Status Date / Time metformin Allergy Intermediate GI SYMPTOMS Verified 01/24/21 01:19 isosorbide Allergy Mild Rash Verified 01/24/21 01:19 lisinopril Allergy Unknown CAN'T Verified 01/24/21 01:19 REMEMBER Home Medications Medication Instructions Recorded Confirmed Type pen needle, diabetic 31 gauge x #100 ea 02/10/19 01/22/21 Rx 3/16" amlodipine [Norvasc] 5 mg PO QAM #30 tab 04/22/20 01/24/21 Rx acetaminophen 325 mg capsule 325 mg PO QID PRN 04/26/20 01/24/21 History aspirin 81 mg tablet,delayed 81 mg PO DAILY #90 tab 06/06/20 01/24/21 Rx release loperamide 2 mg tablet 2 mg PO QID PRN #360 tab 07/17/20 01/24/21 Rx metoprolol succinate 100 mg 100 mg PO QAM #90 tab 07/20/20 01/24/21 Rx tablet,extended release 24 hr atorvastatin 40 mg tablet 40 mg PO QPM #90 tab 11/13/20 01/24/21 Rx calcitriol 0.5 mcg capsule 1 mcg PO DAILY #180 cap 12/14/20 01/24/21 Rx furosemide 40 mg tablet 40 mg PO .COMPLEX #360 tab 12/14/20 01/24/21 Rx allopurinol 100 mg tablet 50 mg PO DAILY #15 tab 01/16/21 01/24/21 Rx insulin glargine 100 unit/mL (3 45 unit SQ PM #45 ml 01/16/21 01/24/21 Rx mL) subcutaneous pen Past Med/Surg History Medical History Chronic kidney disease Congestive heart failure Diabetes mellitus, type 2 Diabetic foot ulcer associated with type 2 diabetes mellitus Dyslipidemia Foot drop RT FOOT (WEARS BRACE) Gait disturbance History of diabetic ulcer of foot Hx of gout Hypertension Sleep apnea NO DEVICE CURRENTLY Type 2 diabetes mellitus with retinopathy Vitamin D deficiency Surgical History Amputated toe of right foot History of cataract surgery RT/LEFT History of colonoscopy Family History Mother Pancreatic cancer Breast cancer Family history of diabetes mellitus Father Myocardial infarction Brother Prostate cancer Other No family history of adverse response to anesthesia Denies family history of Coronary heart disease Colorectal cancer Social History Smoking Status: Never smoker Second Hand Exposure: No; Hx Alcohol Use: No Hx Substance Use: No Preferred Language: [place] Leonean Communication Ability: Effective Hearing Ability: Normal Dogger Required: No Beliefs That Will Affect Care: None Current Living Situation: Alone current occupational status: disabled Feels Safe at Home: Yes Childhood Exposure to Second-Hand Smoke: No caffeine: No during the past year weight has: remained stable Dental Care, Regularly: Yes Physical Activity Frequency: Does not Exercise Seatbelt Use: always Sunscreen Use: No Assistive Devices: Brace/Splint/Immobilizer, Cane, Denture - Upper, Denture - Lower, Glasses and Walker Review of Systems Review of Systems: All systems reviewed & are unremarkable except as noted in HPI & below Physical Exam Physical Exam: General: patient tremulous, NAD, non-toxic in appearance, AA&O x 4 Skin: warm, dry, intact, skin tears Present on bilateral lower extremities, bruising in bilateral axillae HEENT: NC/AT, PERRL, EOMI, anicteric sclera, conjunctiva without injection, external ear normal to inspection and nontender, nares patent, moist mucus membranes, dentition intact, no oropharyngeal lesions, neck supple, trachea midline, no LAD, no thyromegaly, no JVD Heart: +S1/S2, regular, no m/r/g Lungs: equal air entry bilaterally, no rales/rhonchi/wheezes Abd: +BS, soft, NT/ND, no masses/organomegaly/ascites Ext: warm, 2+ pulses in UE/LE bilaterally, no clubbing/cyanosis or edema Neuro: nonfocal, patient AA&O x 4, speech intact, no facial droop, moving all extremities on command with equal strength 5/5 Results & Data Results & Data ([facility]) Vital Signs (Past 12 Hours) Vital Signs Temp Pulse Pulse Resp BP BP Pulse Ox 01/24/21 05:49 82 20 190/87 H 95 01/24/21 04:42 77 20 172/90 H 95 01/24/21 04:08 77 20 163/85 H 95 01/24/21 02:40 75 13 94 01/24/21 02:39 73 21 95 01/24/21 02:38 73 26 H 135/67 94 01/24/21 01:50 81 17 01/24/21 01:45 73 15 134/78 81 L 01/24/21 01:40 73 20 87 L 01/24/21 01:34 76 10 L 01/24/21 01:10 72 26 H 89 L 01/24/21 01:01 74 21 90 01/24/21 01:00 74 25 H 143/75 H 88 L 01/24/21 00:54 79 23 149/78 H 83 L 01/24/21 00:50 77 24 01/24/21 00:44 82 14 01/24/21 00:30 79 27 H 01/24/21 00:20 79 19 95 01/24/21 00:15 76 20 130/71 92 01/24/21 00:12 75 23 90 01/24/21 00:05 75 21 100/49 L 90 01/23/21 23:58 37.1 C 78 18 111/58 L 99 Laboratory Results Laboratory Results WBC 4.83 K/uL (4.8-10.8) 01/24/21 00:05 RBC 3.58 M/uL (4.7-6.1) L 01/24/21 00:05 Hgb 11.3 g/dL (14.0-18.0) L 01/24/21 00:05 Hct 33.2 % (42-52) L 01/24/21 00:05 MCV 92.7 fL (80-100) 01/24/21 00:05 MCH 31.6 pg (25-34) 01/24/21 00:05 MCHC 34.0 g/dL (32-36) 01/24/21 00:05 RDW Std Deviation 45.5 fL (36.4-46.3) 01/24/21 00:05 RDW Coeff of Millie 13.2 % (11.5-14.5) 01/24/21 00:05 Plt Count 125 K/uL (130-400) L 01/24/21 00:05 MPV 9.4 fL (7.4-10.4) 01/24/21 00:05 Immature Gran % (Auto) 0.2 % 01/24/21 00:05 Neut % (Auto) 90.7 % 01/24/21 00:05 Lymph % (Auto) 4.8 % 01/24/21 00:05 Lyman % (Auto) 3.9 % 01/24/21 00:05 Eos % (Auto) 0.2 % 01/24/21 00:05 Baso % (Auto) 0.2 % 01/24/21 00:05 Neut # (Auto) 4.38 K/uL (1.4-6.5) 01/24/21 00:05 Lymph # (Auto) 0.23 K/uL (1.2-3.4) L 01/24/21 00:05 Lyman # (Auto) 0.19 K/uL (0.11-0.59) 01/24/21 00:05 Eos # (Auto) 0.01 K/uL (0-0.5) 01/24/21 00:05 Baso # (Auto) 0.01 K/uL (0-0.2) 01/24/21 00:05 Immature Gran # (Auto) 0.01 K/uL (0.00-0.02) 01/24/21 00:05 RBC Morphology Unremarkable 01/24/21 00:05 Sodium 134 mmol/L (136-145) L 01/24/21 00:05 Potassium 4.2 mmol/L (3.5-5.1) 01/24/21 00:05 Chloride 99 mmol/L (98-107) 01/24/21 00:05 Carbon Dioxide 23 mmol/L (21-32) 01/24/21 00:05 Anion Gap 12.0 (3-11) H 01/24/21 00:05 BUN 85 mg/dl (7-18) H 01/24/21 00:05 Creatinine 4.14 mg/dl (0.6-1.4) H 01/24/21 00:05 Est Cr Clr Drug Dosing 22.6 ml/min 01/24/21 00:05 Est GFR ( Amer) 16.0 ml/min 01/24/21 00:05 Est GFR (Non-Af Amer) 13.8 ml/min 01/24/21 00:05 BUN/Creatinine Ratio 20.6 (10-20) H 01/24/21 00:05 Glucose 64 mg/dl (70-99) L 01/24/21 00:05 POC Glucose 77 mg/dl (70-99) 01/24/21 05:08 Calcium 8.7 mg/dl (8.5-10.1) 01/24/21 00:05 Phosphorus 6.1 mg/dl (2.5-4.9) H 01/24/21 00:05 Magnesium 1.8 mg/dl (1.8-2.4) 01/24/21 00:05 Total Bilirubin 0.6 mg/dl (0.2-1) 01/24/21 00:05 Direct Bilirubin 0.2 mg/dl (0-0.2) 01/24/21 00:05 AST 28 U/L (15-37) 01/24/21 00:05 ALT 28 U/L (12-78) 01/24/21 00:05 Alkaline Phosphatase 67 U/L (45-117) 01/24/21 00:05 Total Creatine Kinase 1442 U/L (39-308) H 01/24/21 00:05 Troponin I < 0.015 ng/ml (0-0.045) 01/24/21 00:05 Total Protein 8.1 gm/dl (6.4-8.2) 01/24/21 00:05 Albumin 3.7 gm/dl (3.4-5.0) 01/24/21 00:05 Globulin 4.4 gm/dl (2.5-4.0) H 01/24/21 00:05 Albumin/Globulin Ratio 0.8 (0.9-2) L 01/24/21 00:05 PG Care Time/CCT Total # of Minutes Spent Total Time Spent with Patient: Total time spent is greater than 50% in coordination of care (as documented) at patient's floor/unit and/or counseling patient: Coding Level of Care Code 58071 Initial Inpt Care Lvl 3 Diagnoses Hypoglycemia associated with diabetes E11.649 CKD (chronic kidney disease) N18.9 Chronic kidney disease stage: unspecified stage Elevated CPK R74.8 Hypertension I10 Hypertension type: essential hypertension Dyslipidemia E78.5 (1) CKD (chronic kidney disease) Chronic kidney disease stage: unspecified stage Qualified Code(s): N18.9 - Chronic kidney disease, unspecified (2) Hypertension Hypertension type: essential hypertension Qualified Code(s): I10 - Essential (primary) hypertension
[2021-01-24] MEDS ORDERED: DEXTROSE 50% 50 ML SYRINGE IV PRN (07:42)
[2021-01-24] MEDS ORDERED: DEXTROSE 5% 1,000 ML IV SCH (07:42)
[2021-01-24] MEDS ORDERED: GLUCAGON FOR INJ 1 MG VIAL SQ PRN (07:42)
[2021-01-24] MEDS ORDERED: GLUCOSE 40% GEL 15 GM TUBE PO PRN (07:42)
[2021-01-24] MEDS ORDERED: GLUCOSE 10 TABS/TUBE PO PRN (07:42)
[2021-01-24] MEDS ORDERED: ONDANSETRON INJ 2 MG/ML 2 ML VIAL IV PRN (07:42)
--- NOTE | 2021-01-24 07:43 | CT Scan Report ---
CT head/brain wo con CLINICAL HISTORY: Syncope. Headache. COMPARISON STUDY: No previous studies for comparison. TECHNIQUE: Axial CT of the brain is performed from the vertex to the skull base. IV contrast was not administered for this examination. A dose lowering technique was utilized adhering to the principles of ALARA. CT DOSE: 614.27 mGy.cm FINDINGS: No intra or extra-axial mass lesions are visualized. There is no CT evidence of acute cortical infarc tion. There is no evidence of midline shift. There is no acute hemorrhage. No calvarial fractures ar e visualized. There are patchy white matter hypodensities likely on a small vessel basis. There is no evidence of pathologic ventricular dilatation. There is no evidence of acute sinusitis There is left posterior parietal scalp induration/thickening. IMPRESSION: 1. No acute intracranial findings 2. Nonspecific left posterior parietal scalp induration/thickening. ACT 112: Negative or not required by law. Electronically signed by: Oswald Villatoro M.D. 01/24/2021 7:41 AM
[2021-01-24] MEDS ORDERED: LOPERAMIDE HCL 2 MG CAP PO PRN (07:50)
--- NOTE | 2021-01-24 08:03 | XRay Report ---
XR chest 1V portable CLINICAL HISTORY: Atypical chest pain COMPARISON STUDY: 04/19/2020 FINDINGS: The heart remains enlarged. There is persistent elevation right hemidiaphragm with associat ed right lower lobe atelectasis/consolidation. There is no overt failure. There are no significant pl eural effusions.[ IMPRESSION: 1. Persistent cardiomegaly 2. Persistent elevation right hemidiaphragm with associated right basilar atelectasis/consolidation. ACT 112: Negative or not required by law. Electronically signed by: Oswald Villatoro M.D. 01/24/2021 8:02 AM
[2021-01-24] MEDS: ASPIRIN 81 MG ECTAB PO SCH (09:16)
[2021-01-24] MEDS: amLODIPine BESYLATE 5 MG TAB PO SCH (09:16)
[2021-01-24] MEDS: METOPROLOL SUCC 50MG EXT REL TAB PO SCH (09:16)
[2021-01-24] MEDS: CALCITRIOL 0.25 MCG CAPSULE PO SCH (09:16)
[2021-01-24] MEDS: FUROSEMIDE 80 MG TAB PO SCH (09:16)
[2021-01-24] MEDS: allopurinoL 100 MG TAB PO SCH (09:16)
[2021-01-24] MEDS: CARBOHYDRATES FOR HYPOGLYCEMIA PO PRN ×2 (16:08→16:29)
[2021-01-24] MEDS: FUROSEMIDE 40 MG TAB PO SCH (18:04)
--- NOTE | 2021-01-24 19:22 | Communication Note ---
Date of Service: January 24, 2021 Seen in follow-up from early a.m. admission. Feels sore and bumped and bruised, but otherwise okay. Sugars are still little bit low through the late afternoon but improving now. He notes that he took 55 units of insulin and did his bowel prep with sugar-free Gatorade. He was a bit distraught that he did not really have any idea what happened between about 7:30 at night and when EMS brought him to the hospital. Otherwise no new complaints. Vitals noted, in general he is awake and alert pleasant no distress. HEENT normocephalic atraumatic mucous membranes moist he does have a little bit of conjunctival blood in the medial part of his right eye. Breathing unlabored no accessory muscle use good effort. Skin shows no rashes no pallor or icterus. Hypoglycemia/unresponsive episodeimproved. Clearly an insulin carb mismatch. Discussed a drastically reduced dose of his insulin when he needs to try bowel prep againsuggested something on the order of 15 units instead of 55. Discussed that this could lead to a degree of hyperglycemia through the night, but that it would be short-lived. Mildly elevated CPKclinically this does not really appear consistent with much of any significant rhabdomyolysis, certainly it is likely from his time down on the floor, but it does not really appear to carry any clinical significance. Repeat CPK 1 more time to ensure it does not show a surprising dramatic uptick Stage V CKD versus ESRDfortunately in his baseline range. Outpatient follow-up DVT prophylaxisambulation Dispositiongiven that he still feels very sore and weak, we will watch him through the night, hopefully home tomorrow. If he continues to be weak and appears at all unsteady on his feet, then we can consider PT/OT eval and treat.
[2021-01-24] MEDS: ACETAMINOPHEN 325 MG TAB PO PRN (19:55)
[2021-01-24] MEDS: ATORVASTATIN 40 MG TAB PO SCH (20:52)
[2021-01-25] MEDS: ACETAMINOPHEN 325 MG TAB PO PRN ×3 (02:11→16:47)
[2021-01-25 07:41] LABS: Hematocrit (blood only) 30.6 % (42-52); Hemoglobin 10.1 g/dL (14.0-18.0); Mean Corpuscular Volume 93.9 fL (80-100); RDW Coefficient of Variation 13.7 % (11.5-14.5); RDW Standard Deviation 46.8 fL (36.4-46.3); Red Blood Count 3.26 M/uL (4.7-6.1); White Blood Count 2.25 K/uL (4.8-10.8)
[2021-01-25] MEDS: allopurinoL 100 MG TAB PO SCH (08:00)
[2021-01-25] MEDS: METOPROLOL SUCC 50MG EXT REL TAB PO SCH (08:01)
[2021-01-25] MEDS: FUROSEMIDE 80 MG TAB PO SCH (08:01)
[2021-01-25] MEDS: ASPIRIN 81 MG ECTAB PO SCH (08:02)
[2021-01-25] MEDS: CALCITRIOL 0.25 MCG CAPSULE PO SCH (08:02)
[2021-01-25] MEDS: amLODIPine BESYLATE 5 MG TAB PO SCH (08:02)
[2021-01-25 08:15] LABS: Eosinophils # (auto) 0.01 K/uL (0-0.5); Eosinophils % (auto) 0.4 %; Immature Granulocytes # (auto) 0.01 K/uL (0.00-0.02); Immature Granulocytes % (auto) 0.4 %; Lymphocytes # (auto) 0.33 K/uL (1.2-3.4); Lymphocytes % (auto) 14.7 %; Mean Platelet Volume 9.2 fL (7.4-10.4); Monocytes % (auto) 4.4 %; Neutrophils % (auto) 80.1 %; Platelet Count 82 K/uL (130-400)
[2021-01-25 08:31] LABS: BUN Creatinine Ratio 17.8 (10-20); Calcium 8.1 mg/dl (8.5-10.1); Creatinine Clr Calc Pharmacy 20.5 ml/min; Est GFR (African American) 14.4 ml/min; Est GFR (Non-African American) 12.5 ml/min; Potassium 3.8 mmol/L (3.5-5.1)
--- NOTE | 2021-01-25 15:52 | Hospitalist Progress Note ---
Date of Service January 25, 2021 Assessment & Plan (1) Hypoglycemia associated with diabetes: Due to taking his full dose of insulin whenever he was starting a bowel prep for colonoscopynow has resolved. Sugars overall continue to be reasonable. Continue current care. (2) CKD (chronic kidney disease): Stage V versus ESRD. Fortunately in his stable range. (3) Elevated CPK: Most likely secondary to fall with prolonged downtime. While extremely mild chemically, and not causing any EARLENE/ARF to correlate with that, his diffuse myalgias are consistent with asymptomatic rhabdomyolysis, if not a truly clinically significant 1. (4) Hypertension: BPs are acceptable, continue home meds (5) Dyslipidemia: Continue statin (6) Hypoxia: Relative hypoxia with no symptomsstrongly suspect atelectasis. Start incentive spirometry (7) Pancytopenia: Some, particularly the anemia, relates to his very progressed CKD, but I also wonder how much his low B12 might play a role given that he is pancytopenicsupplement B12. Outpatient follow-up, if it worsens, or does not improve over time, then consider further work-up, and/or hematology evaluation. (His most recent iron studies June were on the marginal side of okaywe will repeat) (8) DVT prophylaxis: Pharmacologic is a little bit concerning between his advanced CKD and thrombocytopenia. Mechanical is of dubious benefit. Ambulation as best as possible will be the treatment strategy (9) Discharge planning issues: PT/OT eval and treat, hopefully home once his pain is doing better. Admission and Anticipated Discharge Date Admission Date: January 24, 2021 Subjective Still feels very sore all over, and slow to move because of the soreness. He feels that once the soreness is better, he will likely be able to take care of himself at home again. That said he does not feel like he is there yet. No shortness of breath. Review of Systems Review of Systems: All systems reviewed & are unremarkable except as noted in HPI & below Physical Exam Physical Exam: General he is awake and alert pleasant no distress. HEENT normocephalic atraumatic mucous membranes moist. Breathing unlabored no accessory muscle use good effort. Skin shows no rashes no pallor or icterus. Neuro shows no focal deficits. Results & Data Results & Data ([facility]) Vital Signs (Past 12 Hours) Vital Signs Temp Pulse Pulse Pulse Resp BP BP 01/25/21 11:43 99.1 F 64 18 138/73 01/25/21 07:46 75 01/25/21 07:37 99.0 F 78 20 137/84 01/25/21 04:22 99.5 F 80 18 153/87 H Pulse Ox 01/25/21 11:43 90 01/25/21 07:46 01/25/21 07:37 87 L 01/25/21 04:22 93 PG Care Time/CCT Total # of Minutes Spent Total Time Spent with Patient: Total time spent is greater than 50% in coordination of care (as documented) at patient's floor/unit and/or counseling patient: Coding Level of Care Code 73005 Subseq Hosp Care Lvl 3 Diagnoses Hypoglycemia associated with diabetes E11.649 CKD (chronic kidney disease) N18.9 Chronic kidney disease stage: unspecified stage Elevated CPK R74.8 Hypertension I10 Hypertension type: essential hypertension Dyslipidemia E78.5 Hypoxia R09.02 Pancytopenia D61.818 DVT prophylaxis Z29.9 Discharge planning issues Z02.9 (1) CKD (chronic kidney disease) Chronic kidney disease stage: unspecified stage Qualified Code(s): N18.9 - Chronic kidney disease, unspecified (2) Hypertension Hypertension type: essential hypertension Qualified Code(s): I10 - Essential (primary) hypertension
[2021-01-25] MEDS: FUROSEMIDE 40 MG TAB PO SCH (16:47)
[2021-01-25] MEDS: ATORVASTATIN 40 MG TAB PO SCH (20:59)
[2021-01-26] MEDS: ASPIRIN 81 MG ECTAB PO SCH (08:54)
[2021-01-26] MEDS: allopurinoL 100 MG TAB PO SCH (08:54)
[2021-01-26] MEDS: CYANOCOBALAMIN 500 MCG TABLET (VITAMIN B-12) PO SCH (08:55)
[2021-01-26] MEDS: FUROSEMIDE 80 MG TAB PO SCH (08:55)
[2021-01-26] MEDS: amLODIPine BESYLATE 5 MG TAB PO SCH (08:55)
[2021-01-26] MEDS: CALCITRIOL 0.25 MCG CAPSULE PO SCH (08:55)
[2021-01-26] MEDS: METOPROLOL SUCC 50MG EXT REL TAB PO SCH (08:56)
[2021-01-26] MEDS: FUROSEMIDE 40 MG TAB PO SCH (16:53)
--- NOTE | 2021-01-26 18:41 | Hospitalist Progress Note ---
Date of Service January 26, 2021 Assessment & Plan (1) Hypoglycemia associated with diabetes: Due to taking his full dose of insulin whenever he was starting a bowel prep for colonoscopynow has resolved. Sugars generally okay. Have discussed a significant dose reduction in his insulin for when he has to do the bowel prep again. (2) CKD (chronic kidney disease): Stage V versus ESRD. Fortunately in his stable range. (3) Elevated CPK: Most likely secondary to fall with prolonged downtime. While extremely mild chemically, and not causing any EARLENE/ARF to correlate with that, his diffuse myalgias are consistent with asymptomatic rhabdomyolysis, if not a truly clinically significant one. Fortunately symptoms of this is faded, now he is mostly left with bilateral epicondylitis lateral greater than medial. Taught stretches, topical diclofenac. (4) Hypertension: BPs continue to be okay, continue home meds (5) Dyslipidemia: Continue statin (6) Hypoxia: Relative hypoxia with no symptomsstrongly suspect atelectasis. Continue incentive spirometry (7) Pancytopenia: Some, particularly the anemia, relates to his very progressed CKD, but I also wonder how much his low B12 might play a role given that he is pancytopeni csupplement B12. Outpatient follow-up, if it worsens, or does not improve over time, then consider further work-up, and/or hematology evaluation. (His most recent iron studies June were on the marginal side of okaywe will repeat) (8) DVT prophylaxis: Pharmacologic is a little bit concerning between his advanced CKD and thrombocytopenia. Mechanical is of dubious benefit. Ambulation as best as possible will be the treatment strategy (9) Discharge planning issues: PT/OT eval and treat, anticipate home soon Admission and Anticipated Discharge Date Admission Date: January 24, 2021 Subjective less global achiness. now more forearms. also still feels weak. feels like he's getting closer to being able to get home, but not quite there yet. d/w PT after he worked wtih them - she felt he's OK to go home Review of Systems Review of Systems: All systems reviewed & are unremarkable except as noted in HPI & below Physical Exam Physical Exam: vitals noted nad heent nc at mmm breathing unlabored no accessory muscles good effort skin no rashes no pallor or icterus b/l lateral > medial epicondyle tenderness no crepitis. no focal neuro deficits Results & Data Results & Data ([facility]) Vital Signs (Past 12 Hours) Vital Signs Temp Pulse Pulse Resp BP Pulse Ox 01/26/21 15:23 99.0 F 75 18 129/72 91 01/26/21 14:59 79 01/26/21 11:22 99.9 F H 77 18 127/77 95 01/26/21 07:29 98.8 F 79 18 155/73 H 94 01/26/21 07:16 81 PG Care Time/CCT Total # of Minutes Spent Total Time Spent with Patient: Total time spent is greater than 50% in coordination of care (as documented) at patient's floor/unit and/or counseling patient: Coding Level of Care Code 05942 Subseq Hosp Care Lvl 2 Diagnoses Hypoglycemia associated with diabetes E11.649 CKD (chronic kidney disease) N18.9 Chronic kidney disease stage: unspecified stage Elevated CPK R74.8 Hypertension I10 Hypertension type: essential hypertension Dyslipidemia E78.5 Hypoxia R09.02 Pancytopenia D61.818 DVT prophylaxis Z29.9 Discharge planning issues Z02.9 (1) CKD (chronic kidney disease) Chronic kidney disease stage: unspecified stage Qualified Code(s): N18.9 - C hronic kidney disease, unspecified (2) Hypertension Hypertension type: essential hypertension Qualified Code(s): I10 - Essential (primary) hypertension
[2021-01-26] MEDS: ATORVASTATIN 40 MG TAB PO SCH (20:52)
[2021-01-26] MEDS: DICLOFENAC SOD 1% GEL 100 GM TUBE EXT SCH (20:53)
[2021-01-26] MEDS: ACETAMINOPHEN 325 MG TAB PO PRN (23:49)
[2021-01-27 01:17] LABS: Hematocrit (blood only) 29.6 % (42-52); Hemoglobin 9.9 g/dL (14.0-18.0); Mean Corpuscular Hemoglobin 31.6 pg (25-34); Mean Corpuscular Hgb Conc 33.4 g/dL (32-36); Mean Corpuscular Volume 94.6 fL (80-100); RDW Coefficient of Variation 13.7 % (11.5-14.5); RDW Standard Deviation 47.4 fL (36.4-46.3); Red Blood Count 3.13 M/uL (4.7-6.1); White Blood Count 2.55 K/uL (4.8-10.8)
[2021-01-27 01:32] LABS: Platelet Count 52 K/uL (130-400)
[2021-01-27 01:50] LABS: Lymphocytes # (auto) 0.57 K/uL (1.2-3.4); Lymphocytes % (auto) 22.4 %; Monocytes # (auto) 0.16 K/uL (0.11-0.59); Monocytes % (auto) 6.3 %; Neutrophils # (auto) 1.82 K/uL (1.4-6.5); Neutrophils % (auto) 71.3 %; Platelet Estimate Decreased (Normal)
--- NOTE | 2021-01-27 02:22 | Communication Note ---
Date of Service: January 27, 2021 Subjective: nursing notified that the patient was febrile despite Tylenol administration. Patient states that he has been feeling intermittently cold and then hot. Objective: T 38.9, o2 saturation 95% on RA, - lungs clear to auscultation without focal findings on exam - CXR looks unchanged from prior - white count and H&H essentially unchanged from prior A/P 70 yo M presents with fever intermittently since 01/25 with no clear source and hemodynamically stable - continue to monitor for now - consider blood cultures if no resolution or other source is identified
[2021-01-27 05:01] LABS: Appearance Urine Cloudy (Clear); Bacteria Urine Automated Negative (Negative); Bilirubin Urine Negative (Negative); Blood Urine 2+ (Negative); Color Urine Yellow; Epithelial Cell Urine Auto >30 /lpf (0-5); Glucose Urine UA Trace (Negative); Ketones Urine Negative (Negative); Leukocyte Esterase Urine Negative (Negative); Nitrite Urine Negative (Negative); Protein Urine 3+ (Negative); RBC Urine Automated 0-4 /hpf (0-4); Specific Gravity Urine 1.017 (1.000-1.030); Urobilinogen Urine Negative (Negative)
--- NOTE | 2021-01-27 08:35 | XRay Report ---
XR chest 1V portable CLINICAL HISTORY: febrile COMPARISON STUDY: Chest radiograph January 24, 2021. FINDINGS: Elevation of the right hemidiaphragm is unchanged. There is no pneumothorax or pleural fusi on. Cardiac mediastinal silhouette is stable. There is no evidence for pulmonary edema. IMPRESSION: No acute cardiopulmonary findings. Stable elevation of the right hemidiaphragm. Associat ed right basilar opacity favors atelectasis. ACT 112: Negative or not required by law. Electronically signed by: Unruly Sanchez M.D. 01/27/2021 8:34 AM
[2021-01-27] MEDS: allopurinoL 100 MG TAB PO SCH (08:43)
[2021-01-27] MEDS: ASPIRIN 81 MG ECTAB PO SCH (08:44)
[2021-01-27] MEDS: amLODIPine BESYLATE 5 MG TAB PO SCH (08:44)
[2021-01-27] MEDS: CYANOCOBALAMIN 500 MCG TABLET (VITAMIN B-12) PO SCH (08:44)
[2021-01-27] MEDS: CALCITRIOL 0.25 MCG CAPSULE PO SCH (08:44)
[2021-01-27] MEDS: METOPROLOL SUCC 50MG EXT REL TAB PO SCH (08:45)
[2021-01-27] MEDS: FUROSEMIDE 80 MG TAB PO SCH (08:45)
[2021-01-27] MEDS: DICLOFENAC SOD 1% GEL 100 GM TUBE EXT SCH ×4 (08:45→20:14)
[2021-01-27] MEDS ORDERED: ACETAMINOPHEN 325 MG TAB PO PRN (13:04)
[2021-01-27 13:12] LABS: Bilirubin Direct 0.3 mg/dl (0-0.2); Bilirubin,Total 0.8 mg/dl (0.2-1)
[2021-01-27] MEDS: DOXYCYCLINE HYCLATE 100 MG CAP PO SCH ×2 (13:36→20:13)
[2021-01-27] MEDS: FUROSEMIDE 40 MG TAB PO SCH (16:59)
[2021-01-27] MEDS: INSULIN ASPART 100 UNITS/ML 3 ML PEN SC SCH ×2 (17:16→20:06)
--- NOTE | 2021-01-27 19:05 | Hospitalist Progress Note ---
Date of Service January 27, 2021 Assessment & Plan (1) Fever: ?tick borne - anaplasmosis ?bacteremia ?viral ---> cultures sent, empiric doxy (2) Hypoglycemia associated with diabetes: now resolved. discussed lowering insulin when needing to do bowel prep again (3) CKD (chronic kidney disease): Stage V versus ESRD. Fortunately in his stable range. (4) Elevated CPK: Most likely secondary to fall with prolonged downtime. While extremely mild chemically, and not causing any EARLENE/ARF to correlate with that, his diffuse myalgias are consistent with asymptomatic rhabdomyolysis, if not a truly clinically significant one. Fortunately symptoms of this is faded, now he is mostly left with bilateral epicondylitis lateral greater than medial. Taught stretches, topical diclofenac. (5) Hypertension: BPs continue to be okay, continue home meds (6) Dyslipidemia: Continue statin (7) Hypoxia: Relative hypoxia with no symptomsstrongly suspect atelectasis. Continue incentive spirometry (8) Pancytopenia: anemia likely ESRD related, maybe a little b12. rest of pancytopenia would be c/w tick borne. follow (9) DVT prophylaxis: Pharmacologic is a little bit concerning between his advanced CKD and thrombocytopenia. Mechanical is of dubious benefit. Ambulation as best as possible will be the treatment strategy (10) Discharge planning issues: PT/OT eval and treat, anticipate home once doing better Admission and Anticipated Discharge Date Admission Date: January 24, 2021 Subjective fever - felt really hot, achy. no cough/sob/chest pain no abdominal pain/diarrhea/GI sx no rashes no dysuria or other urinary sx Review of Systems Review of Systems: All systems reviewed & are unremarkable except as noted in HPI & below Physical Exam Physical Exam: gen aaox3 pleasant nad heent nc at mmm breathing unlabored no accessory muscles good effort skin no rashes no pallor or icterus neuro no focal deficits Results & Data Results & Data ([facility]) Vital Signs (Past 12 Hours) Vital Signs Temp Pulse Pulse Pulse Resp BP Pulse Ox 01/27/21 15:15 100.4 F H 71 18 97/62 L 92 01/27/21 15:09 75 01/27/21 13:12 102.2 F H 80 20 122/62 94 01/27/21 07:41 98.2 F 74 20 120/58 L 96 01/27/21 07:37 77 PG Care Time/CCT Total # of Minutes Spent Total Time Spent with Patient: Total time spent is greater than 50% in coordination of care (as documented) at patient's floor/unit and/or counseling patient: Coding Level of Care Code 28021 Subseq Hosp Care Lvl 3 Diagnoses Fever R50.9 Hypoglycemia associated with diabetes E11.649 CKD (chronic kidney disease) N18.9 Chronic kidney disease stage: unspecified stage Elevated CPK R74.8 Hypertension I10 Hypertension type: essential hypertension Dyslipidemia E78.5 Hypoxia R09.02 Pancytopenia D61.818 DVT prophylaxis Z29.9 Discharge planning issues Z02.9 (1) CKD (chronic kidney disease) Chronic kidney disease stage: unspecified stage Qualified Code(s): N18.9 - Chronic kidney disease, unspecified (2) Hypertension Hypertension type: essential hypertension Qualified Code(s): I10 - Essential (primary) hypertension
[2021-01-27] MEDS: ATORVASTATIN 40 MG TAB PO SCH (20:13)
[2021-01-28] MEDS: allopurinoL 100 MG TAB PO SCH (08:04)
[2021-01-28] MEDS: INSULIN ASPART 100 UNITS/ML 3 ML PEN SC SCH ×4 (08:04→20:22)
[2021-01-28] MEDS: amLODIPine BESYLATE 5 MG TAB PO SCH (08:05)
[2021-01-28] MEDS: ASPIRIN 81 MG ECTAB PO SCH (08:06)
[2021-01-28] MEDS: CALCITRIOL 0.25 MCG CAPSULE PO SCH (08:06)
[2021-01-28] MEDS: DOXYCYCLINE HYCLATE 100 MG CAP PO SCH ×2 (08:07→20:22)
[2021-01-28] MEDS: FUROSEMIDE 80 MG TAB PO SCH (08:07)
[2021-01-28] MEDS: CYANOCOBALAMIN 500 MCG TABLET (VITAMIN B-12) PO SCH (08:07)
[2021-01-28] MEDS: DICLOFENAC SOD 1% GEL 100 GM TUBE EXT SCH ×4 (08:07→20:23)
[2021-01-28] MEDS: INSULIN GLARGINE SOLOSTAR 100 UNITS/ML 3 ML PEN SC SCH (08:08)
[2021-01-28] MEDS: METOPROLOL SUCC 50MG EXT REL TAB PO SCH (08:08)
[2021-01-28 09:24] LABS: Hematocrit (blood only) 30.2 % (42-52); Mean Corpuscular Hemoglobin 31.3 pg (25-34); Mean Corpuscular Hgb Conc 33.1 g/dL (32-36); Mean Corpuscular Volume 94.4 fL (80-100); RDW Coefficient of Variation 13.5 % (11.5-14.5); RDW Standard Deviation 47.1 fL (36.4-46.3); White Blood Count 2.87 K/uL (4.8-10.8)
[2021-01-28 09:42] LABS: Basophils # (auto) 0.02 K/uL (0-0.2); Basophils % (auto) 0.7 %; Eosinophils # (auto) 0.02 K/uL (0-0.5); Eosinophils % (auto) 0.7 %; Immature Granulocytes # (auto) 0.01 K/uL (0.00-0.02); Immature Granulocytes % (auto) 0.3 %; Lymphocytes # (auto) 1.28 K/uL (1.2-3.4); Lymphocytes % (auto) 44.6 %; Mean Platelet Volume 10.5 fL (7.4-10.4); Monocytes # (auto) 0.35 K/uL (0.11-0.59); Monocytes % (auto) 12.2 %; Neutrophils # (auto) 1.19 K/uL (1.4-6.5); Neutrophils % (auto) 41.5 %; Platelet Count 43 K/uL (130-400); Platelet Estimate Decreased (Normal)
[2021-01-28 10:06] LABS: BUN Creatinine Ratio 19.3 (10-20); Calcium 8.5 mg/dl (8.5-10.1); Creatinine Clr Calc Pharmacy 15.7 ml/min; Est GFR (African American) 10.7 ml/min; Est GFR (Non-African American) 9.2 ml/min; Potassium 3.8 mmol/L (3.5-5.1)
[2021-01-28] MEDS: SODIUM CHLORIDE 0.9% 1000ML 1,000 ML IV SCH (13:34)
--- NOTE | 2021-01-28 19:46 | Hospitalist Progress Note ---
Date of Service January 28, 2021 Assessment & Plan (1) Fever: ?tick borne - anaplasmosis ?bacteremia ?viral ---> cultures sent, empiric doxy started, continue to follow closely. Peripheral smear still pending, although certainly there is a reasonably high false-negative rate. Fortunately he is feeling better (2) Hypoglycemia associated with diabetes: now resolved. discussed lowering insulin when needing to do bowel prep again Colonoscopy was to be done in work-up for what sounds to be chronic diarrheaof note at least some of his history sounds consistent with a very fast throughputsuch as today he noted that he ate honey nut Cheerios and had a bowel movement consisting of honey nut Cheerios less than an hour later. (3) CKD (chronic kidney disease): Stage V versus ESRD. Creatinine jumpedlikely from poor p.o. intake in the face of his ongoing diuretic regimendiuretics held for now, gentle IV fluids started, given how tenuous his renal function is, I have asked nephrology to assist in management of this, although fortunately right now there are no acute indications for dialysis. (4) Elevated CPK: Most likely secondary to fall with prolonged downtime. While extremely mild chemically, and not causing any EARLENE/ARF to correlate with that, his diffuse myalgias are consistent with asymptomatic rhabdomyolysis, if not a truly clinically significant one. Fortunately symptoms of this is faded, now he is mostly left with bilateral epicondylitis lateral greater than medial. Taught stretches, topical diclofenac. (5) Hypertension: BPs continue to be acceptable, continue home meds (6) Dyslipidemia: Continue statin (7) Hypoxia: Relative hypoxia with no symptomsstrongly suspect atelectasis. Continue incentive spirometryseems to be showing stability or improvement (8) Pancytopenia: anemia likely ESRD related, maybe a little b12. rest of pancytopenia would be c/w tick borne. follow (9) DVT prophylaxis: Pharmacologic is a little bit concerning between his advanced CKD and thrombocytopenia. Mechanical is of dubious benefit. Ambulation as best as possible will be the treatment strategy (10) Discharge planning issues: PT/OT eval and treat, anticipate home once doing better Admission and Anticipated Discharge Date Admission Date: January 24, 2021 Subjective Generally feeling a bit better. Did still have fever yesterday afternoonand felt hot and ill with it, but otherwise is starting to feel a bit better. Does note he is not eating and drinking very much while he is here. Overall body aches have improved. Review of Systems Review of Systems: All systems reviewed & are unremarkable except as noted in HPI & below Physical Exam Physical Exam: In general he is awake and alert pleasant no distress. HEENT normocephalic atraumatic mucous membranes moist. Breathing unlabored no accessory muscle use good effort. Skin shows no rashes no pallor or icterus. Neuro without any focal deficits. Results & Data Results & Data ([facility]) Vital Signs (Past 12 Hours) Vital Signs Temp Pulse Pulse Resp BP BP Pulse Ox 01/28/21 19:04 98.6 F 73 18 127/76 93 01/28/21 15:43 69 01/28/21 14:54 98.4 F 70 16 127/67 97 01/28/21 11:02 98.2 F 72 16 110/69 92 PG Care Time/CCT Total # of Minutes Spent Total Time Spent with Patient: Total time spent is greater than 50% in coordination of care (as documented) at patient's floor/unit and/or counseling patient: Coding Level of Care Code 70492 Subseq Hosp Care Lvl 3 Diagnoses Fever R50.9 Hypoglycemia associated with diabetes E11.649 CKD (chronic kidney disease) N18.9 Chronic kidney disease stage: unspecified stage Elevated CPK R74.8 Hypertension I10 Hypertension type: essential hypertension Dyslipidemia E78.5 Hypoxia R09.02 Pancytopenia D61.818 DVT prophylaxis Z29.9 Discharge planning issues Z02.9 (1) CKD (chronic kidney disease) Chronic kidney disease stage: unspecified stage Qualified Code(s): N18.9 - Chronic kidney disease, unspecified (2) Hypertension Hypertension type: essential hypertension Qualified Code(s): I10 - Essential (primary) hypertension
[2021-01-28] MEDS: ATORVASTATIN 40 MG TAB PO SCH (20:22)
[2021-01-29] MEDS: SODIUM CHLORIDE 0.9% 1000ML 1,000 ML IV SCH ×2 (01:08→13:20)
[2021-01-29] MEDS: DICLOFENAC SOD 1% GEL 100 GM TUBE EXT SCH ×4 (08:25→20:18)
[2021-01-29] MEDS: allopurinoL 100 MG TAB PO SCH (08:27)
[2021-01-29] MEDS: amLODIPine BESYLATE 5 MG TAB PO SCH (08:28)
[2021-01-29] MEDS: ASPIRIN 81 MG ECTAB PO SCH (08:28)
[2021-01-29] MEDS: CYANOCOBALAMIN 500 MCG TABLET (VITAMIN B-12) PO SCH (08:29)
[2021-01-29] MEDS: DOXYCYCLINE HYCLATE 100 MG CAP PO SCH (08:29)
[2021-01-29] MEDS: METOPROLOL SUCC 50MG EXT REL TAB PO SCH (08:29)
[2021-01-29] MEDS: INSULIN GLARGINE SOLOSTAR 100 UNITS/ML 3 ML PEN SC SCH (08:30)
[2021-01-29] MEDS: INSULIN ASPART 100 UNITS/ML 3 ML PEN SC SCH ×4 (08:32→20:17)
--- NOTE | 2021-01-29 08:53 | Hospitalist Progress Note ---
Date of Service January 29, 2021 Assessment & Plan (1) Fever: Patient's peripheral smear is negative for inclusion bodies for anaplasmosis peripheral Lyme testing is pending ---> cultures sent, empiric doxy started, timed out after 2 days Peripheral smear negative will send lyme titre Fortunately he is feeling better, however still pancytopenic (2) Hypoglycemia associated with diabetes: now resolved. discussed lowering insulin when needing to do bowel prep again Colonoscopy was to be done in work-up for what sounds to be chronic diarrheaof note at least some of his history sounds consistent with a very fast throughputdiscussed case with GI medicine and will have colonoscopy once platelet counts are improved (3) CKD (chronic kidney disease): Stage V versus ESRD. Creatinine jumpedlikely from poor p.o. intake in the face of his ongoing diuretic regimendiuretics held for now, Greatly appreciate Dr Maldonado input (4) Elevated CPK: Most likely secondary to Rhabdo and muscle injury from fall with prolonged downtime. While extremely mild chemically, and not causing any EARLENE/ARF to correlate with that, his diffuse myalgias are consistent with asymptomatic rhabdomyolysis, if not a truly clinically significant one. Fortunately symptoms of this is faded, now he is mostly left with bilateral epicondylitis lateral greater than medial. Taught stretches, topical diclofenac. (5) Hypertension: BPs continue to be acceptable, continue home meds (6) Dyslipidemia: Continue statin (7) Hypoxia: Relative hypoxia with no symptomsstrongly suspect atelectasis. Continue incentive spirometryseems to be showing stability or improvement (8) Pancytopenia: anemia likely ESRD related, maybe a little b12. (9) DVT prophylaxis: Pharmacologic is a little bit concerning between his advanced CKD and thrombocytopenia. Mechanical is of dubious benefit. Ambulation as best as possible will be the treatment strategy (10) Discharge planning issues: PT/OT eval and treat, anticipate home once doing better Admission and Anticipated Discharge Date Admission Date: January 24, 2021 Subjective Patient is significantly upset. He feels instructions could have been more clear with his precolonoscopy preparation and reducing his insulin dose to prevent his likely hypoglycemic collapse. He had no significant issues from this with exception of a worsening of his renal function which previously was significant. Has slightly improved today. However the patient states that he does not wish to have any further testing or discussion about regarding any other body system other than his diarrhea which has been longstanding and present for many years. To this and I did discuss his case with Dr. Terry his outpatient java web engineer and we will proceed with inpatient colonoscopy for diarrhea work-up for colonic process that might be responsible Review of Systems Review of Systems: Mild distress and fatigue no headache, no visual changes no speech or swallowing issues no chest pain, pressure or palpitations no shortness of breath, cough or wheezes no abdominal pain, nausea or vomiting, diarrhea or constipation no dysuria, hematuria or frequency no focal joint pain or swelling no back pain, CVA tenderness or radicular pain no bruising, bleeding or rashes no focal signs of weakness does have some peripheral neuropathy no complaints of anxiety or depression.. Physical Exam Physical Exam: The patient appeared well nourished and normally developed. His BMI is 42 making him obese Vital signs as documented. Head exam is normocephalic atraumatic Neck is without JVD, thyromegaly, or carotid bruits. Lungs are clear to auscultation, no focal loss of breath sounds Cardiac exam, Rhythm is regular.. No murmurs, rubs or gallops. Abdominal exam reveals normal bowel sounds, soft non tender, no masses Extremities are nonedematous and both pedal pulses are present Neurologic exam is alert and oriented, some peripheral neuropathy Skin is without bruises or rashes Psychologically is without concerns for anxiety or depression Results & Data Results & Data ([facility]) Vital Signs (Past 12 Hours) Vital Signs Temp Pulse Pulse Pulse Resp BP Pulse Ox 01/29/21 08:19 65 01/29/21 07:24 98.6 F 70 18 138/80 95 01/29/21 03:23 98.6 F 70 18 132/79 97 01/29/21 00:08 67 01/28/21 22:41 98.8 F 72 18 121/68 94 PG Care Time/CCT Total # of Minutes Spent Total Time Spent with Patient: Total time spent is greater than 50% in coordination of care (as documented) at patient's floor/unit and/or counseling patient: Coding Level of Care Code 08440 Subseq Hosp Care Lvl 2 Diagnoses Fever R50.9 Hypoglycemia associated with diabetes E11.649 CKD (chronic kidney disease) N18.9 Chronic kidney disease stage: unspecified stage Elevated CPK R74.8 Hypertension I10 Hypertension type: essential hypertension Dyslipidemia E78.5 Hypoxia R09.02 Pancytopenia D61.818 DVT prophylaxis Z29.9 Discharge planning issues Z02.9 (1) CKD (chronic kidney disease) Chronic kidney disease stage: unspecified stage Qualified Code(s): N18.9 - Chronic kidney disease, unspecified (2) Hypertension Hypertension type: essential hypertension Qualified Code(s): I10 - Essential (primary) hypertension
[2021-01-29] MEDS ORDERED: MICONAZOLE NITRATE POWDER 43 GM EXT PRN (09:30)
[2021-01-29 09:45] LABS: Albumin Level 3.1 gm/dl (3.4-5.0); BUN Creatinine Ratio 21.3 (10-20); Calcium 8.6 mg/dl (8.5-10.1); Creatinine Clr Calc Pharmacy 16.9 ml/min; Est GFR (African American) 11.6 ml/min; Phosphorus 5.2 mg/dl (2.5-4.9); Potassium 3.8 mmol/L (3.5-5.1)
[2021-01-29] MEDS: CALCITRIOL 0.25 MCG CAPSULE PO SCH (10:02)
--- NOTE | 2021-01-29 13:11 | Nephrology Consultation ---
Date of Consultation January 29, 2021 Assessment & Plan (1) Acute kidney injury: 70 y o m with stage IV CKD, hypertension, diabetes, chronic diarrhea admitted to the hospital after an episode of syncope at home. Found to have EARLENE, creatinine peaked to 5.8 which slightly improved to 5.6 this morning with b/l cr lately around 4.1 to 4.2 with high-grade proteinuria. Has been voiding normally, blood pressure control, electrolyte has been relatively acceptable. Hemoglobin stable. --there is no indication for urgent/emergency dialysis at this time as electrolyte, volume status acceptable. Creatinine seems to have improved slightly while on IV fluid. Continue on-normal saline current dose for now, there is no sign of volume overload. --we discussed about potential need for dialysis in near future if renal function does not improve as expected with his underlying advanced CKD. Mr. Edie gilmore is extremely frustrated with his ongoing diarrhea and he would like that to be addressed before considering anything including management of advanced CKD/end- stage renal disease. Since he was not able to get the colonoscopy and he had complication associated with bowel prep as well as taking insulin while and n.p.o. he would prefer to address the need for colonoscopy and management of chronic diarrhea while inpatient. Recommend Gastroenterology consultation while he is admitted. --give Epogen 65470 units x 1 dose --left arm nephrology precaution for future vascular access --dose meds for GFR <10 Will follow Thank you for allowing me to participate in your patient's care. It was a pleasure to see Mr. Arias (2) Syncope: (3) Chronic renal insufficiency, stage IV (severe): (4) Anemia: (5) Hypertension: (6) Type 2 diabetes mellitus with complications: (7) Secondary hyperparathyroidism of renal origin: History of Present Illness Reason for Consultation: [place] I, advanced CKD. Attending Physician: Naldo Thayer MD History of Present Illness Greg Arias is a 70-year-old gentleman with PMH of stage IV CKD, hypertension, diabetes, dyslipidemia and history of chronic diarrhea admitted to the hospital after a syncopal episode at home. Nephrology consult was requested to manage EARLENE with advanced CKD and evaluation for need for urgent dialysis. Electronic medical records are reviewed in detail during patient's visit. Quincy presented to ER after he had a syncopal episode at home. He was not sure for how long he passed out before he woke up and called 911, but he remembers sitting at the edge of his bed and then waking up on the ground. He was found to be hypoglycemic by EMS. Prior to the event he was getting bowel prep for preparation for colonoscopy next morning. Although he was NPO he took his regular dose of insulin. Creatinine peaked to 5.8 yesterday which slightly improved to 5.6 this morning. Has been voiding normally, continues to have ongoing diarrhea. Electrolyte has been acceptable. Hemoglobin stable, previously received Venofer and has been getting Epogen. Blood pressure has been relatively well controlled. He has stage IV CKD in the setting of HTN, DM, obesity and prior EARLENE, lately creatinine has been around 4 with high-grade proteinuria, more than 6 g before. Has been following with Dr. S[facility]. He was advised to have AV fistula placed however he was waiting on that until he had some other health issues that needed to be addressed. Has been struggling with ongoing diarrhea for last several years to the point that it has been interfering with his daily living and his quality of life. He also deferred referral for transplant evaluation as well as to the weight loss clinic. He was recently seen by Gastroenterology and was planning for colonoscopy for further evaluation. Medical history is notable for IDDM with neuropathy and retinopathy, HTN and obesity. He continues to be upset and frustrated regarding what caused his acute illness this time requiring hospitalization. Allergies Allergy/AdvReac Type Severity Reaction Status Date / Time metformin Allergy Intermediate GI SYMPTOMS Verified 01/24/21 01:19 isosorbide Allergy Mild Rash Verified 01/24/21 01:19 lisinopril Allergy Unknown CAN'T Verified 01/24/21 01:19 REMEMBER Home Medications Medication Instructions Recorded Confirmed Type pen needle, diabetic 31 gauge x #100 ea 02/10/19 01/22/21 Rx 3/16" amlodipine [Norvasc] 5 mg PO QAM #30 tab 04/22/20 01/24/21 Rx acetaminophen 325 mg capsule 325 mg PO QID PRN 04/26/20 01/24/21 History aspirin 81 mg tablet,delayed 81 mg PO DAILY #90 tab 06/06/20 01/24/21 Rx release loperamide 2 mg tablet 2 mg PO QID PRN #360 tab 07/17/20 01/24/21 Rx metoprolol succinate 100 mg 100 mg PO QAM #90 tab 07/20/20 01/24/21 Rx tablet,extended release 24 hr atorvastatin 40 mg tablet 40 mg PO QPM #90 tab 11/13/20 01/24/21 Rx calcitriol 0.5 mcg capsule 1 mcg PO DAILY #180 cap 12/14/20 01/24/21 Rx furosemide 40 mg tablet 40 mg PO .COMPLEX #360 tab 12/14/20 01/24/21 Rx allopurinol 100 mg tablet 50 mg PO DAILY #15 tab 01/16/21 01/24/21 Rx insulin glargine 100 unit/mL (3 45 unit SQ PM #45 ml 01/16/21 01/24/21 Rx mL) subcutaneous pen Patient History Medical History Chronic kidney disease Congestive heart failure Diabetes mellitus, type 2 Diabetic foot ulcer associated with type 2 diabetes mellitus Dyslipidemia Foot drop RT FOOT (WEARS BRACE) Gait disturbance History of diabetic ulcer of foot Hx of gout Hypertension Sleep apnea NO DEVICE CURRENTLY Type 2 diabetes mellitus with retinopathy Vitamin D deficiency Surgical History Amputated toe of right foot History of cataract surgery RT/LEFT History of colonoscopy Family History Mother Pancreatic cancer Breast cancer Family history of diabetes mellitus Father Myocardial infarction Brother Prostate cancer Other No family history of adverse response to anesthesia Denies family history of Coronary heart disease Colorectal cancer Social History Smoking Status: Never smoker Second Hand Exposure: No; Hx Alcohol Use: No Hx Substance Use: No Preferred Language: Occitan Communication Ability: Effective Hearing Ability: Normal Scenery Builder Required: No Beliefs That Will Affect Care: None Current Living Situation: Alone current occupational status: disabled Feels Safe at Home: Yes Childhood Exposure to Second-Hand Smoke: No caffeine: No during the past year weight has: remained stable Dental Care, Regularly: Yes Physical Activity Frequency: Does not Exercise Seatbelt Use: always Sunscreen Use: No Assistive Devices: Walker Review of Systems Review of Systems: All systems reviewed & are unremarkable except as noted in Subjective Physical Exam Constitutional: WD/WN, vitals as above well developed, well nourished and + obese; no acute distress Eyes: PERRL, conjunctivae normal, anicteric sclerae ENMT: external ear and nose normal, oropharynx normal Ears: no hearing impairment Neck: trachea midline Respiratory: normal respiratory effort, lungs clear to auscultation no cough Auscultation: no crackles, no rales and no wheezes Cardiovascular: RRR, no murmur, no edema Gastrointestinal (Abdomen): normal bowel sounds, soft, nontender, no hepatosplenomegaly Percussion/Palpation: abdomen nontender, no guarding and abdomen not rigid Musculoskeletal: Extremities: extremities normal to inspection Gait: normal gait Skin: no rashes, warm and dry Neurologic: moves all extremities and awake Psychiatric: A+Ox3, euthymic affect Results & Data ([facility]) Vital Signs (Past 12 Hours) Vital Signs Temp Pulse Pulse Pulse Resp BP Pulse Ox 01/29/21 11:11 36.7 C 66 18 129/76 95 01/29/21 08:19 65 01/29/21 07:24 37.0 C 70 18 138/80 95 01/29/21 03:23 37.0 C 70 18 132/79 97 PG Care Time/CCT Total # of Minutes Spent Total Time Spent with Patient: Total time spent is greater than 50% in coordination of care (as documented) at patient's floor/unit and/or counseling patient: Coding Level of Care Code 28972 Inpt Consult Level 5 Diagnoses Acute kidney injury N17.9 Syncope R55 Chronic renal insufficiency, stage IV (severe) N18.4 Anemia D64.9 Hypertension I10 Hypertension type: essential hypertension Type 2 diabetes mellitus with complications E11.8 Secondary hyperparathyroidism of renal origin N25.81 (1) Hypertension Hypertension type: essential hypertension Qualified Code(s): I10 - Essential (primary) hypertension
[2021-01-29] MEDS ORDERED: EPOETIN ALFA 20,000 UNITS/ML VIAL SQ STA (14:09)
[2021-01-29] MEDS: ATORVASTATIN 40 MG TAB PO SCH (20:17)
[2021-01-30] MEDS: SODIUM CHLORIDE 0.9% 1000ML 1,000 ML IV SCH ×2 (00:08→12:24)
[2021-01-30 08:08] LABS: Hematocrit (blood only) 28.8 % (42-52); Hemoglobin 9.5 g/dL (14.0-18.0); Mean Corpuscular Hemoglobin 30.6 pg (25-34); Mean Corpuscular Volume 92.9 fL (80-100); Mean Platelet Volume 10.1 fL (7.4-10.4); Platelet Count 92 K/uL (130-400); RDW Coefficient of Variation 13.7 % (11.5-14.5); RDW Standard Deviation 46.4 fL (36.4-46.3); White Blood Count 5.55 K/uL (4.8-10.8)
[2021-01-30] MEDS: allopurinoL 100 MG TAB PO SCH (08:27)
[2021-01-30] MEDS: amLODIPine BESYLATE 5 MG TAB PO SCH (08:27)
[2021-01-30] MEDS: CYANOCOBALAMIN 500 MCG TABLET (VITAMIN B-12) PO SCH (08:28)
[2021-01-30] MEDS: CALCITRIOL 0.25 MCG CAPSULE PO SCH (08:28)
[2021-01-30] MEDS: ASPIRIN 81 MG ECTAB PO SCH (08:28)
[2021-01-30] MEDS: DICLOFENAC SOD 1% GEL 100 GM TUBE EXT SCH ×5 (08:28→20:03)
[2021-01-30] MEDS: METOPROLOL SUCC 50MG EXT REL TAB PO SCH (08:29)
[2021-01-30] MEDS: INSULIN GLARGINE SOLOSTAR 100 UNITS/ML 3 ML PEN SC SCH (08:32)
[2021-01-30] MEDS: INSULIN ASPART 100 UNITS/ML 3 ML PEN SC SCH ×4 (08:32→21:19)
[2021-01-30 08:34] LABS: Calcium 8.4 mg/dl (8.5-10.1); Creatinine Clr Calc Pharmacy 20.3 ml/min; Est GFR (African American) 14.4 ml/min; Est GFR (Non-African American) 12.5 ml/min; Phosphorus 4.6 mg/dl (2.5-4.9); Potassium 4.1 mmol/L (3.5-5.1)
--- NOTE | 2021-01-30 10:38 | Nephrology Progress Note ---
Date of Service January 30, 2021 Assessment & Plan (1) Acute kidney injury: 70 y o m with stage IV CKD, hypertension, diabetes, chronic diarrhea admitted to the hospital after an episode of syncope at home. Found to have EARLENE, creatinine peaked to 5.8 which slightly improved to 5.6 this morning with b/l cr lately around 4.1 to 4.2 with high-grade proteinuria. Has been voiding normally, blood pressure control, electrolyte has been relatively acceptable. Hemoglobin stable. Renal function slightly improved with IV hydration, volume status, electrolyte acceptable. Blood pressure slightly elevated. --explained that his renal function has been improving, electrolyte acceptable, no indication for urgent/emergency dialysis at this time. However, he became very upset and stated that he does not wish to hear o of or the angio r talk about anything else other than his GI issues. He does not care even if his kidney function worsened and he reach end-stage. Not even interested to hear anything positive about his kidneys or others. Currently GI evaluation is pending --Epogen 15182 units x 1 dose given on 01/29/2021 --left arm nephrology precaution for future vascular access --dose meds for GFR <10 --since patient does not wish to talk about anything else at all, good or bad, and clearly gets pretty upset, will sign off for now and let the primary team and GI manage his main issues which is ongoing diarrhea which has been severely affecting his quality of live. Suggest to continue IV fluid and monitor renal function electrolyte closely, if GI issues resolved and needs any further assistance from Nephrology, will be available any time. Will sign off. (2) Syncope: (3) Chronic renal insufficiency, stage IV (severe): (4) Anemia: (5) Hypertension: (6) Type 2 diabetes mellitus with complications: (7) Secondary hyperparathyroidism of renal origin: Admission and Anticipated Discharge Date Admission Date: January 24, 2021 Subjective Mr. Arias continues to be bothered by ongoing diarrhea, pretty upset and does not want to talk about anything else. Has been tolerating IV fluid, no shortness of breath or chest pain. Renal function improved creatinine down to 4.5, electrolyte acceptable. Hemoglobin stable. Volume status acceptable. Review of Systems Review of Systems: All systems reviewed & are unremarkable except as noted in Subjective Physical Exam Constitutional: WD/WN, vitals as above well developed, well nourished and + obese; no acute distress Eyes: PERRL, conjunctivae normal, anicteric sclerae Neck: trachea midline Respiratory: normal respiratory effort, lungs clear to auscultation no cough Auscultation: no crackles, no rales and no wheezes Cardiovascular: RRR, no murmur, no edema Skin: no rashes, warm and dry Neurologic: moves all extremities and awake Psychiatric: Orientation: alert and oriented x 3 Mood: + irritable mood Results & Data ([facility]) Vital Signs (Past 12 Hours) Vital Signs Temp Pulse Pulse Pulse Resp BP BP 01/30/21 08:23 37.0 C 69 18 169/81 H 01/30/21 06:19 72 01/30/21 03:24 37.2 C 82 19 138/75 01/30/21 02:28 65 01/29/21 23:10 36.7 C 72 18 157/77 H Pulse Ox 01/30/21 08:23 96 01/30/21 06:19 01/30/21 03:24 98 01/30/21 02:28 01/29/21 23:10 98 PG Care Time/CCT Total # of Minutes Spent Total Time Spent with Patient: Total time spent is greater than 50% in coordination of care (as documented) at patient's floor/unit and/or counseling patient: Coding Level of Care Code 85160 Subseq Hosp Care Lvl 3 Diagnoses Acute kidney injury N17.9 Syncope R55 Chronic renal insufficiency, stage IV (severe) N18.4 Anemia D64.9 Hypertension I10 Hypertension type: essential hypertension Type 2 diabetes mellitus with complications E11.8 Secondary hyperparathyroidism of renal origin N25.81 (1) Hypertension Hypertension type: essential hypertension Qualified Code(s): I10 - Essential (primary) hypertension
--- NOTE | 2021-01-30 10:39 | Gastrointestinal Consultation ---
Date of Consultation January 30, 2021 Assessment & Plan (1) Chronic diarrhea: -Clear liquid diet today -NPO after midnight (with exception of bowel prep) for colonoscopy on 01/31/[address] Terry -Supportive care and treatment of other medical conditions per primary team -Further recommendations pending results of testing Thank you for allowing us to participate in the care of this patient. If you should have any questions or concerns, do not hesitate to contact us by phone at Extension [phone] or [phone]. Supervising Physician Co-Signing Physician Notes Agree with WILFREDO Reddy as above Abd: Soft, NT, ND, +BS Continue current therapy and supportive care Colonoscopy for evaluation of diarrhea History of Present Illness Reason for Consultation: Diarrhea Requesting Physician: Dr. Thayer Attending Physician: Naldo Thayer MD History of Present Illness Mr. Arias is a 70 yo male with a PMH of stage 4 CKD, Pancytopenia, Uncontrolled DM2, Pulmonary hypertension, hypertension, hyperparathyroidism, morbid obesity, mitral regurgitation, hypothyroidism, SUKHWINDER, chronic venous insufficiency, & foot drop who presented to [facility] after a syncopal episode. He reports that prior to the event he was prepping for a colonoscopy. Although bowel prep instructions indicate to take 1/2 of his long-term insulin dosage, he reportedly took his regular dose. He is currently hospitalized. His kidney function has sparked conversations regarding dialysis and renal transplant evaluation, but the patient has reported that he does not wish to proceed with addressing any of these concerns until his chronic diarrhea is addressed. He reports that his GI symptoms are the same as they were when he saw Dr. Terry earlier this month. He had reported that his diarrhea began when he was given laxatives in a long-term care facility in 2010. He reported that he was never "normal" again after that. He has 5-6 loose to watery bowel movements daily with some solid material. He denies rectal bleeding. He denies abdominal pain. In the past, he has taken fiber and probiotics without improvement to his symptoms. He uses up to 8 Imodium tablets daily and feels that these also don't work. Last co lonoscopy was in 2011. At that time, he had a poor prep and diverticulosis. HA1C was checked in April 2020 and at that time was 6.8 but as of last week it is now 8. No pertinent family history. No NSAIDs. H/H 9.5/28.2. BUN 99, Cr 4.51. Magnesium & Potassium have not been altered by diarrheal symptoms. Allergies Allergy/AdvReac Type Severity Reaction Status Date / Time metformin Allergy Intermediate GI SYMPTOMS Verified 01/24/21 01:19 isosorbide Allergy Mild Rash Verified 01/24/21 01:19 lisinopril Allergy Unknown CAN'T Verified 01/24/21 01:19 REMEMBER Home Medications Medication Instructions Recorded Confirmed Type pen needle, diabetic 31 gauge x #100 ea 02/10/19 01/22/21 Rx 3/16" amlodipine [Norvasc] 5 mg PO QAM #30 tab 04/22/20 01/24/21 Rx acetaminophen 325 mg capsule 325 mg PO QID PRN 04/26/20 01/22/21 History aspirin 81 mg tablet,delayed 81 mg PO DAILY #90 tab 06/06/20 01/24/21 Rx release loperamide 2 mg tablet 2 mg PO QID PRN #360 tab 07/17/20 01/24/21 Rx metoprolol succinate 100 mg 100 mg PO QAM #90 tab 07/20/20 01/24/21 Rx tablet,extended release 24 hr atorvastatin 40 mg tablet 40 mg PO QPM #90 tab 11/13/20 01/24/21 Rx calcitriol 0.5 mcg capsule 1 mcg PO DAILY #180 cap 12/14/20 01/24/21 Rx furosemide 40 mg tablet 40 mg PO .COMPLEX #360 tab 12/14/20 01/24/21 Rx allopurinol 100 mg tablet 50 mg PO DAILY #15 tab 01/16/21 01/24/21 Rx insulin glargine 100 unit/mL (3 45 unit SQ PM #45 ml 01/16/21 01/24/21 Rx mL) subcutaneous pen Patient History Medical History (Updated 01/30/21 @ 10:42 by Phuong Philip PA-C) Acute kidney injury Chronic kidney disease Chronic renal insufficiency, stage IV (severe) Congestive heart failure Diabetes mellitus, type 2 Diabetic foot ulcer associated with type 2 diabetes mellitus Dyslipidemia Foot drop RT FOOT (WEARS BRACE) Gait disturbance History of diabetic ulcer of foot Hx of gout Hypertension Sleep apnea NO DEVICE CURRENTLY Type 2 diabetes mellitus with retinopathy Vitamin D deficiency Surgical History Amputated toe of right foot History of cataract surgery RT/LEFT History of colonoscopy Family History Mother Pancreatic cancer Breast cancer Family history of diabetes mellitus Father Myocardial infarction Brother Prostate cancer Other No family history of adverse response to anesthesia Denies family history of Coronary heart disease Colorectal cancer Social History Smoking Status: Never smoker Second Hand Exposure: No; Hx Alcohol Use: No Hx Substance Use: No Preferred Language: Pashto Communication Ability: Effective Hearing Ability: Normal Digital Printer Required: No Beliefs That Will Affect Care: None Current Living Situation: Alone current occupational status: disabled Feels Safe at Home: Yes Childhood Exposure to Second-Hand Smoke: No caffeine: No during the past year weight has: remained stable Dental Care, Regularly: Yes Physical Activity Frequency: Does not Exercise Seatbelt Use: always Sunscreen Use: No Assistive Devices: Walker Review of Systems Constitutional: no fever and no chills Respiratory: no problem reported Gastrointestinal: + diarrhea/loose stools; no abdominal pain and no blood in stools Psychiatric: no problem reported Physical Exam Constitutional: well developed Neck: normal visual inspection Respiratory: normal respiratory effort Cardiovascular: Extremities: no edema Gastrointestinal (Abdomen): Inspection/Auscultation: abdomen normal to inspection; abdomen not distended Psychiatric: Orientation: alert and oriented x 3 Results & Data ([facility]) Vital Signs (Past 12 Hours) Vital Signs Temp Pulse Pulse Pulse Resp BP BP 01/30/21 08:23 37.0 C 69 18 169/81 H 01/30/21 06:19 72 01/30/21 03:24 37.2 C 82 19 138/75 01/30/21 02:28 65 01/29/21 23:10 36.7 C 72 18 157/77 H Pulse Ox 01/30/21 08:23 96 01/30/21 06:19 01/30/21 03:24 98 01/30/21 02:28 01/29/21 23:10 98 PG Care Time/CCT Total # of Minutes Spent Total Time Spent with Patient: Total time spent is greater than 50% in coordination of care (as documented) at patient's floor/unit and/or counseling patient: Coding Level of Care Code 62971 Initial Inpt Care Lvl 3 Diagnoses Chronic diarrhea K52.9
[2021-01-30] MEDS: LAVAGE SOLUTION 4000ML PO SCH (17:53)
--- NOTE | 2021-01-30 19:59 | Hospitalist Progress Note ---
Date of Service January 30, 2021 Assessment & Plan (1) Fever: Patient's peripheral smear is negative for inclusion bodies for anaplasmosis peripheral Lyme testing is pending ---> cultures sent, empiric doxy started, timed out after 2 days Peripheral smear negative will send lyme titre Fortunately he is feeling better, however still pancytopenic but improving platelet count is acceptable for procedure (2) Hypoglycemia associated with diabetes: now resolved. discussed lowering insulin when needing to do bowel prep again Colonoscopy was to be done in work-up for what sounds to be chronic diarrheaof note at least some of his history sounds consistent with a very fast throughputdiscussed case with GI medicine and will have colonoscopy once platelet counts are improved (3) CKD (chronic kidney disease): Stage V versus ESRD. earlene resolving from poor p.o. intake in the face of his ongoing diuretic regimendiuretics held for now, Greatly appreciate Dr Maldonado input (4) Elevated CPK: Most likely secondary to Rhabdo and muscle injury from fall with prolonged downtime. While extremely mild chemically, and not causing any EARLENE/ARF to correlate with that, his diffuse myalgias are consistent with asymptomatic rhabdomyolysis, if not a truly clinically significant one. Fortunately symptoms of this is faded, now he is mostly left with bilateral epicondylitis lateral greater than medial. Taught stretches, topical diclofenac. (5) Hypertension: BPs continue to be acceptable, continue home meds (6) Dyslipidemia: Continue statin (7) Hypoxia: Relative hypoxia with no symptomsstrongly suspect atelectasis. Continue incentive spirometryseems to be showing stability or improvement (8) Pancytopenia: anemia likely ESRD related, maybe a little b12. all slowly improving (9) DVT prophylaxis: Pharmacologic is a little bit concerning between his advanced CKD and thrombocytopenia. Mechanical is of dubious benefit. Ambulation as best as possible will be the treatment strategy (10) Discharge planning issues: PT/OT eval and treat, anticipate home once doing better Admission and Anticipated Discharge Date Admission Date: January 24, 2021 Subjective Mr. Arias continues to be bothered by ongoing diarrhea, he remains upset and does not want to talk about anything else unless we adress his diarrhea. Has been tolerating IV fluid, no shortness of breath or chest pain. Renal function continues to improve creatinine down to 4.5, electrolyte acceptable. Hemoglobin stable. appears euvolemic Review of Systems Review of Systems: Mild distress and fatigue no headache, no visual changes no speech or swallowing issues no chest pain, pressure or palpitations no shortness of breath, cough or wheezes no abdominal pain, nausea or vomiting, persistent diarrhea claims sees whole food one hour after eating it in stool no dysuria, hematuria or frequency no focal joint pain or swelling no back pain, CVA tenderness or radicular pain no bruising, bleeding or rashes no focal signs of weakness does have some peripheral neuropathy no complaints of anxiety or depression.. Physical Exam Physical Exam: The patient appeared well nourished and normally developed. His BMI is 42 making him obese Vital signs as documented. Head exam is normocephalic atraumatic Lungs are clear to auscultation, no focal loss of breath sounds Cardiac exam, Rhythm is regular.. No murmurs, rubs or gallops. Abdominal exam reveals normal bowel sounds, soft non tender, no masses Extremities are nonedematous and both pedal pulses are present Neurologic exam is alert and oriented, some peripheral neuropathy Skin is without bruises or rashes Psychologically is without concerns for anxiety or depression Results & Data Results & Data ([facility]) Vital Signs (Past 12 Hours) Vital Signs Temp Pulse Pulse Resp BP Pulse Ox 01/30/21 15:19 65 01/30/21 11:49 98.2 F 69 18 165/87 H 99 01/30/21 08:23 98.6 F 69 18 169/81 H 96 PG Care Time/CCT Total # of Minutes Spent Total Time Spent with Patient: Total time spent is greater than 50% in coordination of care (as documented) at patient's floor/unit and/or counseling patient: Coding Level of Care Code 85455 Subseq Hosp Care Lvl 2 Diagnoses Fever R50.9 Hypoglycemia associated with diabetes E11.649 CKD (chronic kidney disease) N18.9 Chronic kidney disease stage: unspecified stage Elevated CPK R74.8 Hypertension I10 Hypertension type: essential hypertension Dyslipidemia E78.5 Hypoxia R09.02 Pancytopenia D61.818 DVT prophylaxis Z29.9 Discharge planning issues Z02.9 (1) CKD (chronic kidney disease) Chronic kidney disease stage: unspecified stage Qualified Code(s): N18.9 - Chronic kidney disease, unspecified (2) Hypertension Hypertension type: essential hypertension Qualified Code(s): I10 - Essential (primary) hypertension
[2021-01-30] MEDS: ATORVASTATIN 40 MG TAB PO SCH (20:03)
[2021-01-31] MEDS: LAVAGE SOLUTION 4000ML PO SCH (03:30)
[2021-01-31] MEDS: SODIUM CHLORIDE 0.9% 1000ML 1,000 ML IV SCH ×2 (03:31→16:08)
[2021-01-31] MEDS: amLODIPine BESYLATE 5 MG TAB PO SCH (07:41)
[2021-01-31] MEDS: ASPIRIN 81 MG ECTAB PO SCH (07:41)
[2021-01-31] MEDS: allopurinoL 100 MG TAB PO SCH (07:41)
[2021-01-31] MEDS: CALCITRIOL 0.25 MCG CAPSULE PO SCH (07:41)
[2021-01-31] MEDS: METOPROLOL SUCC 50MG EXT REL TAB PO SCH (07:42)
[2021-01-31] MEDS: CYANOCOBALAMIN 500 MCG TABLET (VITAMIN B-12) PO SCH (07:42)
[2021-01-31] MEDS: INSULIN GLARGINE SOLOSTAR 100 UNITS/ML 3 ML PEN SC SCH (07:42)
[2021-01-31] MEDS: DICLOFENAC SOD 1% GEL 100 GM TUBE EXT SCH ×4 (07:42→20:03)
[2021-01-31] MEDS: INSULIN ASPART 100 UNITS/ML 3 ML PEN SC SCH ×4 (07:43→20:54)
[2021-01-31 08:50] LABS: Albumin Level 3.3 gm/dl (3.4-5.0); BUN Creatinine Ratio 19.5 (10-20); Calcium 8.7 mg/dl (8.5-10.1); Creatinine Clr Calc Pharmacy 22.7 ml/min; Est GFR (African American) 16.4 ml/min; Est GFR (Non-African American) 14.2 ml/min
[2021-01-31 09:01] LABS: Phosphorus 3.5 mg/dl (2.5-4.9)
--- NOTE | 2021-01-31 09:05 | History & Physical Bridge Note ---
Date of Service January 31, 2021 History & Physical Bridge Note I have examined the patient, reviewed the History & Physical and in the interval since the performance of the History & Physical I have noted the following changes of clinical significance: no changes noted Patient has completed bowel preparation and has remained NPO after midnight. Proceed with colonoscopy this morning for further evaluation of diarrhea. Supervising Physician Co-Signing Physician Notes Agree with WILFREDO Reddy as above Abd: Soft, NT, ND, +BS Proceed with colonoscopy now Further recommendations to follow.
[2021-01-31] MEDS ORDERED: hydrALAZINE HCL 20 MG/ML VIAL IV PRN (10:04)
[2021-01-31] MEDS ORDERED: LIDOCAINE 2% 2 ML VIAL/AMP(20MG/ML) INFIL ONE (10:38)
[2021-01-31] MEDS ORDERED: PROPOFOL IV EMULSION 10 MG/ML 20 ML VIAL IV ONE (10:38)
--- NOTE | 2021-01-31 11:04 | GI REPORT ---
Patient Name: Greg Arias Procedure Date: 01/31/2021 10:12 AM Date of : 1950 Admit Type: Inpatient Age: 70 Gender: Male Attending MD: Crow Terry DO Procedure: Colonoscopy Providers: Crow Terry DO Referring MD: Naldo Thayer Indications: Chronic diarrhea Medicines: Monitored Anesthesia Care Complications: No immediate complications. Estimated Blood Loss: Estimated blood loss: none. Procedure: Pre-Anesthesia Assessment: - Prior to the procedure, a History and Physical was performed, and patient medications and allergies were reviewed. The patient's tolerance of previous anesthesia was also reviewed. The risks and benefits of the procedure and the sedation options and risks were discussed with the patient. All questions were answered, and informed consent was obtained. Prior Anticoagulants: The patient has taken no previous anticoagulant or antiplatelet agents except for aspirin. ASA Grade Assessment: III - A patient with severe systemic disease. After reviewing the risks and benefits, the patient was deemed in satisfactory condition to undergo the procedure. After I obtained informed consent, the scope was passed under direct vision. Throughout the procedure, the patient's blood pressure, pulse, and oxygen saturations were monitored continuously. The Colonoscope was introduced through the anus and advanced to the terminal ileum. The colonoscopy was performed without difficulty. The patient tolerated the procedure well. The quality of the bowel preparation was good. The terminal ileum, ileocecal valve, appendiceal orifice, and rectum were photographed. Findings: The perianal and digital rectal examinations were normal. Eight sessile polyps were found in the transverse colon, ascending colon, cecum and ileocecal valve. The polyps were 3 to 10 mm in size. These polyps were removed with a hot snare. Resection and retrieval were complete. Multiple small-mouthed diverticula were found in the sigmoid colon. Non-bleeding internal hemorrhoids were found during retroflexion. The hemorrhoids were small. Several random biopsies were obtained with cold forceps for histology in the entire colon. Fluid aspiration for cell count and differential, bacterial cultures and Clostridium difficile was performed in the entire colon. Impression: - Eight 3 to 10 mm polyps in the transverse colon, in the ascending colon, in the cecum and at the ileocecal valve, removed with a hot snare. Resected and retrieved. - Diverticulosis in the sigmoid colon. - Non-bleeding internal hemorrhoids. - Several random biopsies were obtained in the entire colon. - Fluid aspiration was performed. Recommendation: - [facility]. - Advance diet as tolerated. - Repeat colonoscopy for surveillance based on pathology results. - Continue present medications. Crow Terry, DO 01/31/2021 11:04:23 AM This report has been signed electronically. Note Initiated On: 01/31/2021 10:12 AM Number of Addenda: 0 I attest to the content of the Intraoperative Record and orders documented therein, exceptions below {[id number]}
--- NOTE | 2021-01-31 12:12 | Anesthesiology Progress Note ---
Date of Service January 31, 2021 Anesthesia Post Procedure Vital Signs Vital Signs: Temp Pulse Pulse Resp BP Pulse Ox 01/31/21 11:22 70 20 149/83 H 96 01/31/21 11:11 70 20 148/89 H 96 01/31/21 10:56 70 20 121/70 98 01/31/21 09:48 36.7 C 86 20 188/105 H 97 01/31/21 08:01 37.0 C 78 18 141/70 H 97 01/31/21 07:05 77 01/31/21 04:00 36.6 C 70 20 160/87 H 100 01/30/21 23:30 37.1 C 66 20 138/77 96 01/30/21 19:50 36.5 C 75 20 159/76 H 99 01/30/21 15:19 65 Pain Intensity Generalized: Pain Intensity: 6 Bilateral Lower Arm: Pain Intensity: 3 Lower Back: Pain Intensity: 8 Transfer of Care Handoff Completed per policy Notes Mental Status: alert / awake / arousable and participated in evaluation Patient Amnestic to Procedure: Yes Nausea / Vomiting: adequately controlled Pain: adequately controlled Airway Patency, RR, SpO2: stable & adequate BP & HR: stable & adequate Hydration State: stable & adequate Anesthetic Complications: no major complications apparent and Pt Satisfied with anesthetic care
[2021-01-31] MEDS ORDERED: LOPERAMIDE HCL 2 MG CAP PO PRN (13:21)
[2021-01-31] MEDS ORDERED: LOPERAMIDE HCL 2 MG CAP PO STA (13:49)
[2021-01-31] MEDS: METHYLCELLULOSE POWDER 454 GM JAR PO SCH ×2 (14:26→20:03)
--- NOTE | 2021-01-31 19:36 | Hospitalist Progress Note ---
Date of Service January 31, 2021 Assessment & Plan (1) Diarrhea: still undiagnosed, after discussion with GI medicine no obvious source seen on colo, pending cultures and fat analysis, will start citrucel and immodium (2) Fever: Resolved Patient's peripheral smear is negative for inclusion bodies for anaplasmosis peripheral Lyme testing is pending ---> cultures sent, empiric doxy started, timed out after 2 days Peripheral smear negative will send lyme titre Fortunately he is feeling better, however still pancytopenic but improving platelet count is acceptable for procedure (3) Hypoglycemia associated with diabetes: now resolved. discussed lowering insulin when needing to do bowel prep again Colonoscopy was to be done in work-up for what sounds to be chronic diarrheaof note at least some of his history sounds consistent with a very fast throughputdiscussed case with GI medicine and will have colonoscopy once platelet counts are improved (4) CKD (chronic kidney disease): Stage V versus ESRD. earlene resolving from poor p.o. intake in the face of his ongoing diuretic regimendiuretics held for now, Greatly appreciate Dr Maldonado input (5) Elevated CPK: Most likely secondary to Rhabdo and muscle injury from fall with prolonged downtime. While extremely mild chemically, and not causing any EARLENE/ARF to correlate with that, his diffuse myalgias are consistent with asymptomatic rhabdomyolysis, if not a truly clinically significant one. Fortunately symptoms of this is faded, now he is mostly left with bilateral epicondylitis lateral greater than medial. Taught stretches, topical diclofenac. (6) Hypertension: BPs continue to be acceptable, continue home meds (7) Dyslipidemia: Continue statin (8) Hypoxia: Relative hypoxia with no symptomsstrongly suspect atelectasis. Continue incentive spirometryseems to be showing stability or improvement (9) Pancytopenia: anemia likely ESRD related, maybe a little b12. all slowly improving (10) DVT prophylaxis: Pharmacologic is a little bit concerning between his advanced CKD and thrombocytopenia. Mechanical is of dubious benefit. Ambulation as best as possible will be the treatment strategy Admission and Anticipated Discharge Date Admission Date: January 24, 2021 Subjective Mr. Arias continues to be bothered by ongoing diarrhea, he remains upset and does not want to talk about anything else unless we adress his diarrhea. Has been tolerating IV fluid, no shortness of breath or chest pain. Renal function continues to improve creatinine down to 4.5, electrolyte acceptable. Hemoglobin stable. appears euvolemic colonoscopy did show polyps, and cultures are pending as well as fat analysis Review of Systems Review of Systems: Mild distress and fatigue no headache, no visual changes no speech or swallowing issues no chest pain, pressure or palpitations no shortness of breath, cough or wheezes no abdominal pain, nausea or vomiting, persistent diarrhea claims sees whole food one hour after eating it in stool no dysuria, hematuria or frequency no focal joint pain or swelling no back pain, CVA tenderness or radicular pain no bruising, bleeding or rashes no focal signs of weakness does have some peripheral neuropathy no complaints of anxiety or depression.. Physical Exam Physical Exam: The patient appeared well nourished and normally developed. His BMI is 42 making him obese Vital signs as documented. Head exam is normocephalic atraumatic Lungs are clear to auscultation, no focal loss of breath sounds Cardiac exam, Rhythm is regular.. No murmurs, rubs or gallops. Abdominal exam reveals normal bowel sounds, soft non tender, no masses Extremities are nonedematous and both pedal pulses are present Neurologic exam is alert and oriented, some peripheral neuropathy Skin is without bruises or rashes Psychologically is without concerns for anxiety or depression Results & Data Results & Data ([facility]) Vital Signs (Past 12 Hours) Vital Signs Temp Pulse Pulse Resp BP Pulse Ox 01/31/21 19:08 98.4 F 71 18 154/75 H 97 01/31/21 15:33 98.4 F 79 18 160/82 H 97 01/31/21 15:00 67 01/31/21 12:28 97.7 F 71 20 161/82 H 98 01/31/21 11:22 70 20 149/83 H 96 01/31/21 11:11 70 20 148/89 H 96 01/31/21 10:56 70 20 121/70 98 01/31/21 09:48 98.1 F 86 20 188/105 H 97 01/31/21 08:01 98.6 F 78 18 141/70 H 97 PG Care Time/CCT Total # of Minutes Spent Total Time Spent with Patient: Total time spent is greater than 50% in coordination of care (as documented) at patient's floor/unit and/or counseling patient: Coding Level of Care Code 36146 Subseq Hosp Care Lvl 2 Diagnoses Diarrhea R19.7 Fever R50.9 Hypoglycemia associated with diabetes E11.649 CKD (chronic kidney disease) N18.9 Chronic kidney disease stage: unspecified stage Elevated CPK R74.8 Hypertension I10 Hypertension type: essential hypertension Dyslipidemia E78.5 Hypoxia R09.02 Pancytopenia D61.818 DVT prophylaxis Z29.9 (1) CKD (chronic kidney disease) Chronic kidney disease stage: unspecified stage Qualified Code(s): N18.9 - Chronic kidney disease, unspecified (2) Hypertension Hypertension type: essential hypertension Qualified Code(s): I10 - Essential (primary) hypertension
[2021-02-01] MEDS: SODIUM CHLORIDE 0.9% 1000ML 1,000 ML IV SCH (05:05)
[2021-02-01] MEDS: METOPROLOL SUCC 50MG EXT REL TAB PO SCH (08:56)
[2021-02-01] MEDS: amLODIPine BESYLATE 5 MG TAB PO SCH (08:56)
[2021-02-01] MEDS: ASPIRIN 81 MG ECTAB PO SCH (08:56)
[2021-02-01] MEDS: CYANOCOBALAMIN 500 MCG TABLET (VITAMIN B-12) PO SCH (08:57)
[2021-02-01] MEDS: allopurinoL 100 MG TAB PO SCH (08:57)
[2021-02-01] MEDS: INSULIN ASPART 100 UNITS/ML 3 ML PEN SC SCH ×2 (08:57→12:09)
[2021-02-01] MEDS: CALCITRIOL 0.25 MCG CAPSULE PO SCH (08:57)
[2021-02-01] MEDS: DICLOFENAC SOD 1% GEL 100 GM TUBE EXT SCH ×2 (08:58→12:10)
[2021-02-01] MEDS: INSULIN GLARGINE SOLOSTAR 100 UNITS/ML 3 ML PEN SC SCH (08:58)
[2021-02-01] MEDS: METHYLCELLULOSE POWDER 454 GM JAR PO SCH (08:59)
[2021-02-01] MEDS ORDERED: LOPERAMIDE HCL 2 MG CAP PO SCH (09:00)
[2021-02-01 09:21] LABS: BUN Creatinine Ratio 18.3 (10-20); Calcium 8.1 mg/dl (8.5-10.1); Est GFR (African American) 20.1 ml/min; Est GFR (Non-African American) 17.3 ml/min; Phosphorus 3.8 mg/dl (2.5-4.9); Potassium 3.8 mmol/L (3.5-5.1)
--- NOTE | 2021-02-01 12:40 | Gastroenterology Progress Note ---
Date of Service February 01, 2021 Assessment & Plan (1) Diarrhea: -Metamucil 1-2 TBSP daily -One Imodium every morning; Can use up to 8 tablets daily for repeated episodes of diarrhea -Patient has follow-up appointment scheduled already with Dr. Terry on 02/15/21 at 11 AM. -Pathology pending at present Admission and Anticipated Discharge Date Admission Date: January 24, 2021 Supervising Physician Co-Signing Physician Notes Agree with WILFREDO Reddy as above Patient was discharged prior to my evaluation Random colon biopsies negative and stool studies negative thusfar Fecal fat pending still Subjective Patient is a 70 yo male with chronic diarrhea. Patient reports he is not having diarrhea since his bowel prep. Random biopsies and polyp path pending at present. Stool cultures pending. C diff is negative. Fecal fat pending as well. Patient reports readiness for discharge. He denies any new complaints. Review of Systems Constitutional: no fever and no chills Respiratory: no cough and no dyspnea Cardiovascular: no chest pain Gastrointestinal: no abdominal pain, no diarrhea/loose stools and no blood in stools Physical Exam Constitutional: well developed Respiratory: normal respiratory effort Cardiovascular: Extremities: no edema Gastrointestinal (Abdomen): normal bowel sounds, soft, nontender, no hepatosplenomegaly Results & Data Results & Data ([facility]) Vital Signs (Past 12 Hours) Vital Signs Temp Pulse Pulse Resp BP BP Pulse Ox 02/01/21 12:13 37.4 C 65 18 152/78 H 147/76 H 95 02/01/21 10:57 37.4 C 65 18 147/76 H 95 02/01/21 08:55 76 161/80 H 02/01/21 07:16 36.7 C 64 18 154/77 H 90 02/01/21 07:00 70 02/01/21 04:00 36.7 C 67 20 152/78 H 98 PG Care Time/CCT Total # of Minutes Spent Total Time Spent with Patient: Total time spent is greater than 50% in coordination of care (as documented) at patient's floor/unit and/or counseling patient: Coding Level of Care Code 65102 Subseq Hosp Care Lvl 2 Diagnoses Diarrhea R19.7
--- NOTE | 2021-02-01 17:45 | Discharge Summary ---
Date of Service February 01, 2021 Admission HPI Per Admitting Provider Greg Arias is a 70-year-old male with history of diabetes, hyperlipidemia, CKD, hypertension, gout.Patient presents to [facility] today with symptomatic hypoglycemia. Patient was preparing for colonoscopy. He was n.p.o., last solid food intake was 01/22/2021.Patient did take his Lantus last night at 1900- 55 units. Of note, his Lantus was just increased from 50 units at night to 55 units at night and this was his first dose of 55 unit.After the Lantus, patient passed out. EMS was called patient found to be hypoglycemic with blood sugar reportedly in the 30s. Upon arrival patient's blood sugar found to be 64. Fingersticks ranging from 44-162. Patient was administered D50. He is complaining of tremors, SCHMID and nausea. Otherwise, no acute complaints. He has longstanding history of intermittent diarrhea - reports watery stools often after PO intake, tenesmus and fecal incontinence ongoing x 10 years. He was to have a colonoscopy performed by Dr. Terry for workup of this issue In the ER patient afebrile, HD stable, NAD Principal Diagnosis Syncope secondary to hypoglycemia Chronic diarrhea with colonic polyps found Discharge Exam The patient appeared well Vital signs as documented. Breathing appears unlabored Cardiac exam, Rhythm is regular.. No murmurs, rubs or gallops. Extremities are trace edematous and both pedal pulses are normal. Neurologic exam is alert and oriented, no focal loss of strength or sensation Skin is without bruises or rashes Discharge Data Allergies Allergy/AdvReac Type Severity Reaction Status Date / Time metformin Allergy Intermediate GI SYMPTOMS Verified 01/31/21 09:57 isosorbide Allergy Mild Rash Verified 01/31/21 09:57 lisinopril Allergy Unknown CAN'T Verified 01/31/21 09:57 REMEMBER Consultations 01/24/21 05:16 ED Decision to Admit Stat 01/28/21 13:03 Consult Nephrology Routine 01/30/21 08:45 Consult Gastroenterology Routine Procedures Performed Operation Date: 01/31/21 17:10 Actual Procedures p Colonoscopy Polypectomy - Crow Terry, DO Ordered Studies 01/24/21 00:31 CT head/brain wo con Urgent Hospital Course (1) Diarrhea: Colonoscopy is performed polyps were removed cultures and samples obtained, pending cultures and fat analysis, will recommend continuing fiber and daily immodium We will follow up with Dr. Terry at the office (2) Fever: Resolved Patient's peripheral smear is negative for inclusion bodies for anaplasmosis peripheral Lyme testing is pending ---> cultures sent, empiric doxy started, timed out after 2 days Peripheral smear negative will send lyme titre Fortunately he is feeling better, however still pancytopenic but improving (3) Hypoglycemia associated with diabetes: now resolved. discussed lowering insulin when needing to do bowel prep again Colonoscopy was to be done in work-up for what sounds to be chronic diarrheaof note at least some of his history sounds consistent with a very fast throughputdiscussed case with GI medicine and will have colonoscopy once platelet counts are improved (4) CKD (chronic kidney disease): Stage V versus ESRD. earlene resolving from poor p.o. intake in the face of his ongoing diuretic regimendiuretics held for now, Greatly appreciate Dr Maldonado input is improved over his hospital stay (5) Elevated CPK: Most likely secondary to Rhabdo and muscle injury from fall with prolonged downtime. While extremely mild chemically, and not causing any EARLENE/ARF to correlate with that, his diffuse myalgias are consistent with asymptomatic rhabdomyolysis, if not a truly clinically significant one. Fortunately symptoms of this is faded, now he is mostly left with bilateral epicondylitis lateral greater than medial. Taught stretches, topical diclofenac. (6) Hypertension: BPs continue to be acceptable, continue home meds (7) Dyslipidemia: Continue statin (8) Hypoxia: Relative hypoxia with no symptomsstrongly suspect atelectasis. Continue incentive spirometryseems to be showing stability or improvement (9) Pancytopenia: anemia likely ESRD related, maybe a little b12. all slowly improving Total Time Total Time Spent Total Time Spent (In Minutes): It required greater than 30 minutes to prepare this patient for discharge Discharge Plan Discharge Items Patient Disposition: Home - Self-Care Reason For Visit: HYPOGLYCEMIA Discharge Diagnosis: syncope secondary to hypoglycemia induced by colonoscopy prep and npo status diarrhea ' colonic polyps and tissue analysis Activity: Resume your previous activity Non-emergency contact: Primary Care Provider and Senior Media Buyer Call non-emergency contact if: you have any medication questions, your symptoms worsen and you have a fever Follow-up/Referrals: Loco Garcia III, MD [Primary Care Provider] - 02/12/21 3:00 pm Diet: Carb Consistent or DM2 Addtl Attending Provider Instructions: Please resume your usual diet and diabetic regiment your tissue samples are being analyzed and results will be sent to Dr Terry, you will discuss these at your follow up appt take one imodium in the morning and you may take more if needed throughout the day, following instructions on package if you have zero bowel movements in a day, the following day do not take your am Imodium take a fiber supplement of your choice, they also make fiber gummies, and increase the dose you take to try to increase the solid nature of your stool s Pending Studies at Discharge: Yes Stand-Alone Forms: My [facility] [employer], Smoking Cessation Medications and DC Order Prescriptions: Continued (DME) pen needle, diabetic [BD Ultra-Fine Mini Pen Needle] 31 gauge x 3/16" needle See Dose Instructions .ROUTE .MEDSUPPLY Qty: 100 RF: 5 acetaminophen 325 mg capsule 325 mg PO QID PRN (Reason: Pain) RF: 0 loperamide [Imodium A-D] 2 mg tablet 2 mg PO QID PRN (Reason: loose stool) Qty: 360 RF: 3 metoprolol succinate 100 mg tablet extended release 24 hr 100 mg PO QAM Qty: 90 RF: 3 atorvastatin 40 mg tablet 40 mg PO QPM Qty: 90 RF: 3 furosemide 40 mg tablet 40 mg PO .COMPLEX Qty: 360 RF: 3 Lantus Solostar U-100 Insulin 100 unit/mL (3 mL) insulin pen 45 unit SQ PM Qty: 45 RF: 5 allopurinol 100 mg tablet 50 mg PO DAILY Qty: 15 RF: 5 aspirin [Adult Low Dose Aspirin] 81 mg tablet,delayed release (DR/EC) 81 mg PO DAILY Qty: 90 RF: 3 calcitriol 0.5 mcg capsule 1 mcg PO DAILY Qty: 180 RF: 3 amlodipine [Norvasc] 5 mg Tablet 5 mg PO QAM Qty: 30 RF: 0 Discharge Orders: Discharge Order (Routine); Ordered 02/01/21 Ordered By: Naldo Thayer Admission Data Admit Date/Time: 01/24/21 05:58 Attending Provider: Naldo Thayer Admit Provider: Estefany Cohen Primary Care Provider: Loco Garcia III Other Providers: Estefany Cohen ; Navin Wayne ; Crow Terry Other Interventions: Discharge Summary Assessment (RN) Last Done: 02/01/21 12:13 Coding Level of Care Code D/C Day Management >30 mins Diagnoses Diarrhea R19.7 Fever R50.9 Hypoglycemia associated with diabetes E11.649 CKD (chronic kidney disease) N18.9 Chronic kidney disease stage: unspecified stage Elevated CPK R74.8 Hypertension I10 Hypertension type: essential hypertension Dyslipidemia E78.5 Hypoxia R09.02 Pancytopenia D61.818
--- NOTE | 2021-02-09 09:48 | Coding Query ---
CODING QUERY To promote full compliance with coding requirements relating to patient care, provider participation is requested in all cases of scrub technician uncertainty. Please assist us with the question(s) below: Coding Question(s): The Discharge Summary documents regarding Chronic Kidney Disease, "Stage V versus ESRD" and the Nephrology Consultation documents, "stage IV CKD", and, "there is no indication for urgent/emergency dialysis at this time". Please specify below, in your clinical opinion, regarding CKD. (x ) likely CKD stage 4 ( ) likely CKD stage 5 ( ) likely ESRD ( ) Stage 5 CKD vs ESRD ( ) Other: Please Specify Physician's Response(s): Thank you Carolann Hollis Principal Diagnosis: "that condition established after study, to be chiefly responsible for occasioning the admission of the patient to the hospital for care." Co-Existing Principal Diagnosis: "when two or more diagnoses equally meet the criteria for principal diagnosis as determined by the circumstances of admission, diagnostic work up, and/or therapy provided, and the Alphabetic Index, Tabular List, or another coding guideline does not provide sequencing direction, any one of the diagnoses may be sequenced first." "When the physician has documented what appears to be a current diagnosis in the body of the record, but has not included the diagnosis in the final diagnostic statement, the physician should be asked whether the diagnosis should be added." (Source [facility]oding [facility] 2 QTR90. p3-4) MELISSA
--- NOTE | 2021-02-09 10:06 | Coding Query ---
CODING QUERY To promote full compliance with coding requirements relating to patient care, provider participation is requested in all cases of photocomposing machine operator uncertainty. Please assist us with the question(s) below: Coding Question(s): The 01/27 Communication Note documents, "70 yo M presents with fever intermittently since 01/25 with no clear source and hemodynamically stable - continue to monitor for now - consider blood cultures if no resolution or other source is identified", and 01/27 Progress Note documents, " Fever: ?tick borne - anaplasmosis ?bacteremia ?viral ---> cultures sent, empiric doxy", and, "Pancytopenia: anemia likely ESRD related, maybe a little b12. rest of pancytopenia would be c/w tick borne", and the 01/28 Progress Note documents, "---> cultures sent, empiric doxy started, continue to follow closely. Peripheral smear still pending, although certainly there is a reasonably high false-negative rate", and the Progress Note on 01/29 documents, "Fever: Patient's peripheral smear is negative for inclusion bodies for anaplasmosis peripheral Lyme testing is pending ---> cultures sent, empiric doxy started, timed out after 2 days Peripheral smear negative will send lyme titre", and the Discharge Summary documents, " Fever: Resolved Patient's peripheral smear is negative for inclusion bodies for anaplasmosis peripheral Lyme testing is pending ---> cultures sent, empiric doxy started, timed out after 2 days Peripheral smear negative will send lyme titre Fortunately he is feeling better, however still pancytopenic but improving". Please specify below, in your clinical opinion. ( ) Pancytopenia and fever at lease partially due to possible tick bourne illness treated during this admission. Please Specify further regarding tick bourne illness and POA status. ( ) likely unspecified tick bourne illness ( ) Present on Admission ( ) Not Present on Admission ( ) Undetermined ( ) likely Lyme Disease ( ) Present on Admission ( ) Not Present on Admission ( ) Undetermined ( ) likely Other: Please Specify ( ) Present on Admission ( ) Not Present on Admission ( ) Undetermined ( ) Tick-bourne illness is Ruled-Out ( x) Other: Please Specify___tic borne illness was suspected but not verified, viral illness could also present in a similar fashion, there were pending tests at discharge that may confirm or refute the initial suspicion ( x) Present on Admission ( ) Not Present on Admission ( ) Undetermined Physician's Response(s): Thank you Carolann Hollis Principal Diagnosis: "that condition established after study, to be chiefly responsible for occasioning the admission of the patient to the hospital for care." Co-Existing Principal Diagnosis: "when two or more diagnoses equally meet the criteria for principal diagnosis as determined by the circumstances of admission, diagnostic work up, and/or therapy provided, and the Alphabetic Index, Tabular List, or another coding guideline does not provide sequencing direction, any one of the diagnoses may be sequenced first." "When the physician has documented what appears to be a current diagnosis in the body of the record, but has not included the diagnosis in the final diagnostic statement, the physician should be asked whether the diagnosis should be added." (Source Coding [facility] 2 QTR90. p3-4) MELISSA
== END 2021-02-01 13:19 | disposition home or self-care (01) | DRG 638 ==
LOC: ED 23:50 → SUATTDRO 01-24 05:58 → 2W 01-24 05:58

== ENCOUNTER 2021-11-12 10:22 | Inpatient (IN) ==
--- NOTE | 2021-11-12 10:59 | Emergency Department Note ---
Impression & Plan Hypoxia, Sepsis, Osteomyelitis ED Provider Note NAME: CARLA BOLES AGE: 71 SEX: M : 1950 ARRIVES VIA: Ambulance INFORMANT: Patient ED PROVIDER(S): Magen Madrid DO CHIEF COMPLAINT: shortness of breath HPI: Patient is a 71-year-old male with a past medical history of diabetes, obesity, CKD, and hypertension the presents the ER for shortness of breath and chills which wounds present for the past 5 days. He notes been gradually getting worse. Shortness of breath is worse when up moving around. He was seen by the PCP and referred in. He had a temperature at the office of 100.5. Denies any chest pain or belly pain. No nausea vomiting or diarrhea. No dysuria urgency or frequency. He believes the wound on his left foot has only been present for the past 2 days. ROS: See above HPI for pertinent positives & negatives. A total of 10 systems reviewed and were otherwise negative. PAST MEDICAL HISTORY:See Below PAST SURGICAL HISTORY:See Below FAMILY HISTORY:See Below SOCIAL HISTORY:See Below HOME MEDICATIONS:See Below ALLERGIES:See Below VITALS:See Below PHYSICAL EXAMINATION: GENERAL: Sitting up in bed, alert, morbidly obese, EYE EXAM: normal conjunctiva. PERRL and EOM's grossly intact. OROPHARYNX: no exudate, no erythema, lips, buccal mucosa, and tongue normal and mucous membranes are moist NECK: supple, no nuchal rigidity, no adenopathy, non-tender LUNGS: Clear to auscultation. Normal chest wall mechanics HEART: no murmurs, S1 normal and S2 normal ABDOMEN: abdomen soft, non-tender, normo-active bowel sounds, no masses, no rebound or guarding. UPPER EXTREMITIES: upper extremities are grossly normal. LOWER EXTREMITIES: No pitting edema. Significant pitting edema in the left lower extremity with left fifth and fourth toes purple/necrotic and exposed bone at the base of the fifth MTP with surrounding redness tracking up to the midshin NEURO EXAM: Normal sensorium, cranial nerves II-XII grossly intact, normal speech, no gross weakness of arms, no gross weakness of legs. MEDICAL DECISION MAKING: Patient is a 71-year-old male who presents ER for above-stated complaint. IV was established blood work was obtained. Labs show a leukocytosis of 25,000. Mild anemia 7.5. BMP with creatinine of 7.18 up from a baseline of about 3. He was acidotic with CO2 of 14 and a gap of 18. LFTs bilirubin was unremarkable. Troponin elevated 0.07 which I favor secondary to the EARLENE. Lipase was unremarka ble. He did have diffuse pitting edema in the left lower extremity and was slightly hypoxic. Patient was given daptomycin as well as cefepime for the clear osteo of the left lower foot and surrounding cellulitis. He was remained on nasal cannula due to the hypoxia was a question of this secondary to volume overload. Will defer to the hospital for additional work-up. Triage Nursing notes reviewed. Limited review of prior medical records performed Vital Signs: reviewed and remarkable for HTN Differential diagnosis: Differential diagnoses includes but is not limited to pneumonia, bronchitis, COPD/Asthma exacerbation, pneumothorax, pulmonary embolism, congestive heart failure, acute coronary syndrome ER treatment provided: See below Diagnostics interpreted by me: ECG: Sinus rhythm with PACs rate 88 left [place] QTC 430 Cardiac Monitoring: An order was placed for continuous cardiac monitoring. The monitor shows a rate of 82 with sinus rhythm. Laboratory studies: As stated above and show below. Imaging studies: Portable AP upright 1 view chest unremarkable Consultation(s[facility] Procedures: non Critical Care: I have personally spent 32 minutes of critical care time in the direct management of this patient. This includes bedside care, interpretation of diagnostic studies, and testing, discussion with consultants, patient, and family members, and other required patient management activities. This 32 minutes is in excess of all separately billable procedures. Past Med/Surg History Medical History (Updated 11/12/21 @ 18:06 by Magen Madrid DO) Chronic renal insufficiency, stage IV (severe) Diabetes mellitus, type 2 Diabetic autonomic neuropathy Diabetic foot ulcer associated with type 2 diabetes mellitus Dyslipidemia Ex-smoker Foot drop RT FOOT (WEARS BRACE) Gait disturbance History of diabetic ulcer of foot Hx of gout Hypertension Hypothyroidism Morbid obesity with BMI of 45.0-49.9, adult Pulmonary arterial hypertension Sleep apnea NO DEVICE CURRENTLY Type 2 diabetes mellitus with retinopathy Vitamin D deficiency Surgical History Amputated toe of right foot History of cataract surgery RT/LEFT History of colonoscopy Family History Mother Pancreatic cancer Breast cancer Family history of diabetes mellitus Father Myocardial infarction Brother Prostate cancer Other No family history of adverse response to anesthesia Denies family history of Coronary heart disease Colorectal cancer Social History Smoking Status: Never smoker Second Hand Exposure: No; Do You Dip or Chew Tobacco: No; Hx Alcohol Use: No Hx Substance Use: No Preferred Language: Upper Sorbian Communication Ability: Effective Hearing Ability: Normal General Farmworker Required: No Beliefs That Will Affect Care: None Current Living Situation: Alone current occupational status: disabled Feels Safe at Home: Yes Safety Concerns: Feels Safe At This Time Childhood Exposure to Second-Hand Smoke: No caffeine: No during the past year weight has: remained stable Dental Care, Regularly: Yes Physical Activity Frequency: Does not Exercise Seatbelt Use: always Sunscreen Use: No Assistive Devices: Walker Allergies Allergies Allergy/AdvReac Type Severity Reaction Status Date / Time metformin Allergy Intermediate GI SYMPTOMS Verified 09/28/21 12:30 isosorbide Allergy Mild Rash Verified 09/28/21 12:30 lisinopril Allergy Unknown CAN'T Verified 09/28/21 12:30 REMEMBER Home Meds Home Medications Medication Instructions Recorded Confirmed brimonidine 0.15 % eye drops 1 drp OPB BID 11/12/21 11/12/21 calcitriol 0.5 mcg capsule 0.5 mcg PO BID 11/12/21 11/12/21 cholecalciferol (vitamin D3) 50 150 mcg PO DAILY 11/12/21 11/12/21 mcg (2,000 unit) tablet furosemide 40 mg tablet 40 mg PO BID 11/12/21 11/12/21 latanoprost 0.005 % eye drops 1 drp OPHTHALMIC (EYE) HS 11/12/21 11/12/21 levothyroxine 50 mcg tablet 50 mcg PO DAILY 11/12/21 11/12/21 loperamide 2 mg capsule (Imodium 2 mg PO Q4H PRN 11/12/21 11/12/21 A-D) losartan 50 mg tablet 50 mg PO BID 11/12/21 11/12/21 multivitamin 1 tab PO DAILY 11/12/21 11/12/21 Previous Rx's Medication Instructions Recorded aspirin 81 mg tablet,delayed 81 mg PO DAILY #90 tab 06/06/20 release (Adult Low Dose Aspirin) pen needle, diabetic 31 gauge x #100 ea 02/22/2110/31" (BD Ultra-Fine Mini Pen Needle) amlodipine 5 mg tablet 5 mg PO DAILY #30 tab 03/28/21 clonidine HCl 0.1 mg tablet 0.1 mg PO BID #180 tab 05/07/21 atorvastatin 40 mg tablet 40 mg PO DAILY #90 tab 06/11/21 diphenoxylate-atropine 2.5 1 tab PO QID PRN #60 tab 07/10/21 mg-0.025 mg tablet (Lomotil) metoprolol succinate 100 mg 100 mg PO QAM #90 tab 09/03/21 tablet,extended release 24 hr allopurinol 100 mg tablet 50 mg PO DAILY #45 tab 09/05/21 insulin glargine 100 unit/mL (3 50 unit SQ PM #15 ml 09/05/21 mL) subcutaneous pen (Lantus Solostar U-100 Insulin) Results & Data (ED) Vital Signs Vital Signs - 24 hr 11/12/21 10:32 11/12/21 10:40 11/12/21 10:41 Temperature 37.2 C Temperature Source Oral Pulse Rate 86 Pulse Rate [Left Finger] Pulse Rhythm Irregular Pulse Rhythm [Left Finger] Pulse Strength Normal Pulse Strength [Left Finger] Respiratory Rate 22 Respiratory Effort / Characteristics Non-Labored Spontaneous Respiratory Depth Normal Normal Respiratory Pattern Regular Regular Blood Pressure 143/66 H Blood Pressure [Right Arm] Blood Pressure Mean 91 Blood Pressure Mean [Right Arm] Blood Pressure Position Sitting Blood Pressure Position [Right Arm] Pulse Oximetry 98 98 Oxygen Delivery Method Nasal Cannula Nasal Cannula Oxygen Flow Rate 3 3 Sepsis Recent Fever Within 48 Hours Yes Sepsis New/Unexplained Change in Mental Status N/A Sepsis Action Taken by Nursing No Action Required 11/12/21 10:58 11/12/21 11:20 11/12/21 12:31 Temperature Temperature Source Pulse Rate Pulse Rate [Left Finger] 78 Pulse Rhythm Pulse Rhythm [Left Finger] Regular Pulse Strength Pulse Strength [Left Finger] Normal Respiratory Rate 20 Respiratory Effort / Characteristics Non-Labored Spontaneous Respiratory Depth Normal Respiratory Pattern Regular Blood Pressure Blood Pressure [Right Arm] 117/64 Blood Pressure Mean Blood Pressure Mean [Right Arm] 81 Blood Pressure Position Blood Pressure Position [Right Arm] Sitting Pulse Oximetry 97 85 L 98 Oxygen Delivery Method Nasal Cannula Room Air Room Air Oxygen Flow Rate 2 0 Sepsis Recent Fever Within 48 Hours Sepsis New/Unexplained Change in Mental Status Sepsis Action Taken by Nursing Laboratory Data Result diagrams: 11/12/21 Unknown 11/12/21 Unknown Lab Results 11/12/21 11/12/21 11/12/21 Range/Units 11:15 11:15 11:48 B-Natriuretic Peptide 777 H (0-100) pg/ml Influ A Molecular Assay Negative (Negative) Influ B Molecular Assay Negative (Negative) SARS-CoV-2, RNA, NAAT NEGATIVE (NEGATIVE) Administered Medications Discontinued Medications Daptomycin 700 mg/ Syringe 14 mls @ 7 mls/min IV NOW STA; Protocol Stop: 11/12/21 12:24 Last Admin: 11/12/21 15:55 Dose: 7 mls/min Documented by: [id number] Cefepime HCl 2,000 mg/ Syringe 20 mls @ 5 mls/min IV NOW STA Stop: 11/12/21 12:27 Last Admin: 11/12/21 15:55 Dose: 5 mls/min Documented by: [id number] Imaging Data Radiologist's Impression: Foot X-Ray 11/12/21 10:57 XR foot LT min 3V routine CLINICAL HISTORY: l foot osteo base of 5mtp and 5/4th digit TECHNIQUE: 3 views of the left foot were obtained. Comparison: None available at the time of this dictation. FINDINGS: Focal lucencies are seen at the distal fifth metatarsal and fifth proximal phalanx are seen. The remaining phalanges of the fourth and fifth digits do not demonstrate radiographically evident erosions. Chronic appearing fracture of the second digit distal phalanx is noted. Degenerative changes are seen. Vascular calcifications are noted. There is an ulcer at the level of the fifth metatarso phalangeal joint. IMPRESSION: Focal lucency is seen about the fifth metatarsophalangeal joint with associated ulcer compatible with osteomyelitis. Of note, MRI is a more sensitive modality for detection of osteomyelitis. ACT 112: Negative or not required by law. Electronically signed by: Saeed Hurst M.D. 11/12/2021 11:52 AM Chest X-Ray 11/12/21 10:58 XR chest 1V portable HISTORY: 71 years-old Male Chest Pain . Acute atypical chest pain COMPARISON: Chest radiograph 01/27/2021 TECHNIQUE: Portable AP view of the chest FINDINGS: Cardiac silhouette is enlarged, unchanged. Unchanged moderate right hemidiaphragmatic elevation. There is no pneumothorax, pleural effusion, airspace consolidation or overt pulmonary edema. Unchanged right basilar opacities suggestive of atelectasis. The bones appear grossly intact. IMPRESSION: No acute process. ACT 112: Negative or not required by law. The above report was generated using voice recognition software. It may contain grammatical, syntax or spelling errors. Electronically signed by: Pj Christianson M.D. 11/12/2021 11:24 AM Discharge Plan Visit Data Chief Complaint: Shortness of Breath/Dyspnea Stated Complaint: SOB ED Provider: Magen Madrid Discharge Problem: Hypoxia, Sepsis, Osteomyelitis Patient Disposition: Admitted As Inpatient Discharge Instructions Interventions: ED Discharge Assessment Last Done: 11/12/21 13:31 Discharge Problem: Sepsis Qualifiers: Sepsis type: sepsis due to unspecified organism Sepsis acute organ dysfunction status: unspecified Qualified Code(s): A41.9 - Sepsis, unspecified organism Osteomyelitis Qualifiers: Osteomyelitis type: unspecified type Osteomyelitis location: foot Laterality: unspecified laterality Qualified Code(s): M86.9 - Osteomyelitis, unspecified
[2021-11-12 11:22] LABS: Hematocrit (blood only) 23.3 % (42-52); Hemoglobin 7.5 g/dL (14.0-18.0); Mean Corpuscular Hemoglobin 28.6 pg (25-34); Mean Corpuscular Hgb Conc 32.2 g/dL (32-36); Mean Corpuscular Volume 88.9 fL (80-100); Mean Platelet Volume 9.3 fL (7.4-10.4); Nucleated RBC # (auto) 0.03 K/uL (0-0); Nucleated RBC % (auto) 0.1 %; Platelet Count 348 K/uL (130-400); RDW Coefficient of Variation 16.3 % (11.5-14.5); RDW Standard Deviation 53.9 fL (36.4-46.3); Red Blood Count 2.62 M/uL (4.7-6.1); White Blood Count 25.13 K/uL (4.8-10.8)
--- NOTE | 2021-11-12 11:26 | XRay Report ---
XR chest 1V portable HISTORY: 71 years-old Male Chest Pain . Acute atypical chest pain COMPARISON: Chest radiograph 01/27/2021 TECHNIQUE: Portable AP view of the chest FINDINGS: Cardiac silhouette is enlarged, unchanged. Unchanged moderate right hemidiaphragmatic elevation. Ther e is no pneumothorax, pleural effusion, airspace consolidation or overt pulmonary edema. Unchanged ri ght basilar opacities suggestive of atelectasis. The bones appear grossly intact. IMPRESSION: No acute process. ACT 112: Negative or not required by law. The above report was generated using voice recognition software. It may contain grammatical, syntax o r spelling errors. Electronically signed by: Pj Christianson M.D. 11/12/2021 11:24 AM
[2021-11-12 11:39] LABS: Troponin I 0.07 ng/ml (0-0.04)
[2021-11-12] MEDS ORDERED: VANCOMYCIN CONSULT ACTIVE PRN (11:41)
[2021-11-12] MEDS ORDERED: VANCOMYCIN HCL 2,750 MG in SODIUM CHLORIDE 0.9% 500 ML IV ONE (11:41)
[2021-11-12 11:45] LABS: Influenza A virus by PCR Negative (Negative); Influenza B virus by PCR Negative (Negative)
--- NOTE | 2021-11-12 11:55 | XRay Report ---
XR foot LT min 3V routine CLINICAL HISTORY: l foot osteo base of 5mtp and 5/4th digit TECHNIQUE: 3 views of the left foot were obtained. Comparison: None available at the time of this dictation. FINDINGS: Focal lucencies are seen at the distal fifth metatarsal and fifth proximal phalanx are seen. The laya ining phalanges of the fourth and fifth digits do not demonstrate radiographically evident erosions. Chronic appearing fracture of the second digit distal phalanx is noted. Degenerative changes are seen . Vascular calcifications are noted. There is an ulcer at the level of the fifth metatarsophalangeal joint. IMPRESSION: Focal lucency is seen about the fifth metatarsophalangeal joint with associated ulcer compatible with osteomyelitis. Of note, MRI is a more sensitive modality for detection of osteomyelitis. ACT 112: Negative or not required by law. Electronically signed by: Saeed Hurst M.D. 11/12/2021 11:52 AM
[2021-11-12 11:56] LABS: Anisocytosis Present; Basophils # (auto) 0.01 K/uL (0-0.2); Immature Granulocytes % (auto) 0.4 %; Lymphocytes # (auto) 0.38 K/uL (1.2-3.4); Lymphocytes % (auto) 1.5 %; Monocytes # (auto) 1.15 K/uL (0.11-0.59); Monocytes % (auto) 4.6 %; Neutrophils # (auto) 23.49 K/uL (1.4-6.5); Neutrophils % (auto) 93.5 %; Rouleaux 1+
[2021-11-12 11:57] LABS: Albumin Globulin Ratio 0.8 (0.9-2); Albumin Level 3.3 gm/dl (3.4-5.0); BUN Creatinine Ratio 15.5 (10-20); Bilirubin,Total 0.4 mg/dl (0.2-1.0); Calcium 9.2 mg/dl (8.5-10.1); Creatinine Clr Calc Pharmacy 12.9 ml/min; Est GFR (African American) 8.2 ml/min; Est GFR (Non-African American) 7.1 ml/min; Potassium 4.8 mmol/L (3.5-5.1); Total Protein 7.6 gm/dl (6.0-8.3)
[2021-11-12 12:16] LABS: Globulin 4.3 gm/dl (2.5-4.0)
[2021-11-12] MEDS ORDERED: DAPTOmycin 700 MG in SYRINGE 0 ML IV STA (12:23)
[2021-11-12] MEDS ORDERED: CEFEPIME 2,000 MG in SYRINGE 0 ML IV STA (12:24)
--- NOTE | 2021-11-12 12:38 | Electrocardiogram Report ---
Test Reason : Blood Pressure : / mmHG Vent. Rate : 088 BPM Atrial Rate : 300 BPM P-R Int : 000 ms QRS Dur : 086 ms QT Int : 356 ms P-R-T Axes : 000 -25 055 degrees QTc Int : 430 ms Poor data quality, interpretation may be adversely affected Atrial fibrillation Abnormal ECG When compared with ECG of 24-JAN-2021 00:54, Atrial fibrillation has replaced Sinus rhythm Incomplete right bundle branch block is no longer Present Criteria for Septal infarct are no longer Present Confirmed by Royer Duenas ([id number]) on 11/12/2021 12:37:38 PM Referred By: Confirmed By:Royer Duenas
[2021-11-12] MEDS ORDERED: PHARMACY GLYCEMIC MGMT CONSULT PRN (16:55)
--- NOTE | 2021-11-12 17:12 | Nephrology Consultation ---
Date of Consultation November 12, 2021 Assessment & Plan (1) Acute kidney injury: * EARLENE due to infection/inflammation in the setting of ARB therapy * Stop Losartan * Will order renal US and urinalysis w/ micro * Volume status and electrolyte balance are acceptable. No acute indication for HD at this time * Monitor PRP * Discussed potential need for initiation of HD during this hospitalization. Patient states that he is now accepting of HD if needed (2) ESRD (end stage renal disease): * Baseline Cr 4.2 - 4.4 w/ EGFR 11 - 13 cc/min. 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 Patient likely will not respond to ROBERTH due to inflammation (4) Diabetic foot ulcer associated with type 2 diabetes mellitus: * Antibiotic therapy as per primary service. Recommend consultation w/ Pharmacy to dose appropriately for ESRD (5) Fecal incontinence: * Await GI recommendations History of Present Illness Reason for Consultation: EARLENE/CKD Attending Physician: Jaun Shrestha MD History of Present Illness Mr. Arias is a 71 year old white male who is seen at the request of [facility] Hospitalist Service for evaluation of EARLENE/CKD. Medical records in the EMR were reviewed today and are summarized as follows: Mr. Arias has stage V CKD (ESRD). Baseline Cr has been 4.2 - 4.4 w/ EGFR 11 - 13 cc/min. His renal impairment is due to combination AODM, vascular disease, obesity. His primary [place] Driver is Dr. Sloan. Patient has been referred for AVF creation but declined surgical intervention or dialysis due to fecal incontinence. He has suffered from fecal incontinence since 2010. 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 Mr. Arias was evaluated by his PCP today and found to have cellulitis of his L foot. He was also noted to have a necrotic ulcer on the lateral aspect of his L foot and the 4th and 5th toes appeared necrotic as well. Mr. Arias was admitted to [facility] for IV antibiotic therapy and surgical evaluation. Admission labs reveal Cr has risen to 7.18 w/ BUN 111. Allergies Allergy/AdvReac Type Severity Reaction Status Date / Time metformin Allergy Intermediate GI SYMPTOMS Verified 09/28/21 12:30 isosorbide Allergy Mild Rash Verified 09/28/21 12:30 lisinopril Allergy Unknown CAN'T Verified 09/28/21 12:30 REMEMBER Home Medications Medication Instructions Recorded Confirmed Type aspirin 81 mg tablet,delayed 81 mg PO DAILY #90 tab 06/06/20 11/12/21 Rx release (Adult Low Dose Aspirin) pen needle, diabetic 31 gauge x #100 ea 02/22/21 07/06/21 Rx 3/16" (BD Ultra-Fine Mini Pen Needle) amlodipine 5 mg tablet 5 mg PO DAILY #30 tab 03/28/21 11/12/21 Rx clonidine HCl 0.1 mg tablet 0.1 mg PO BID #180 tab 05/07/21 11/12/21 Rx atorvastatin 40 mg tablet 40 mg PO DAILY #90 tab 06/11/21 11/12/21 Rx diphenoxylate-atropine 2.5 1 tab PO QID PRN #60 tab 07/10/21 11/12/21 Rx mg-0.025 mg tablet (Lomotil) metoprolol succinate 100 mg 100 mg PO QAM #90 tab 09/03/21 11/12/21 Rx tablet,extended release 24 hr allopurinol 100 mg tablet 50 mg PO DAILY #45 tab 09/05/21 11/12/21 Rx insulin glargine 100 unit/mL (3 50 unit SQ PM #15 ml 09/05/21 11/12/21 Rx mL) subcutaneous pen (Lantus Solostar U-100 Insulin) brimonidine 0.15 % eye drops 1 drp OPB BID 11/12/21 11/12/21 History calcitriol 0.5 mcg capsule 0.5 mcg PO BID 11/12/21 11/12/21 History cholecalciferol (vitamin D3) 50 150 mcg PO DAILY 11/12/21 11/12/21 History mcg (2,000 unit) tablet furosemide 40 mg tablet 40 mg PO BID 11/12/21 11/12/21 History latanoprost 0.005 % eye drops 1 drp OPHTHALMIC (EYE) HS 11/12/21 11/12/21 History levothyroxine 50 mcg tablet 50 mcg PO DAILY 11/12/21 11/12/21 History loperamide 2 mg capsule (Imodium 2 mg PO Q4H PRN 11/12/21 11/12/21 History A-D) losartan 50 mg tablet 50 mg PO BID 11/12/21 11/12/21 History multivitamin 1 tab PO DAILY 11/12/21 11/12/21 History Patient History Medical History Acute kidney injury Anemia Chronic kidney disease Chronic renal insufficiency, stage IV (severe) Congestive heart failure Diabetes mellitus, type 2 Diabetic foot ulcer associated with type 2 diabetes mellitus Dyslipidemia Foot drop Gait disturbance History of diabetic ulcer of foot Hx of gout Hypertension Hypothyroidism Morbid obesity with BMI of 45.0-49.9, adult Pulmonary arterial hypertension Sleep apnea Type 2 diabetes mellitus with retinopathy Vitamin D deficiency Surgical History Amputated toe of right foot History of cataract surgery History of colonoscopy Family History Mother Pancreatic cancer Breast cancer Family history of diabetes mellitus Father Myocardial infarction Brother Prostate cancer Other No family history of adverse response to anesthesia Denies family history of Coronary heart disease Colorectal cancer Social History Smoking Status: Never smoker Second Hand Exposure: No; Do You Dip or Chew Tobacco: No; Hx Alcohol Use: No Hx Substance Use: No Preferred Language: Malawian Communication Ability: Effective Hearing Ability: Normal Institutional Research Director Required: No Beliefs That Will Affect Care: None Current Living Situation: Alone current occupational status: disabled Feels Safe at Home: Yes Safety Concerns: Feels Safe At This Time Childhood Exposure to Second-Hand Smoke: No caffeine: No during the past year weight has: remained stable Dental Care, Regularly: Yes Physical Activity Frequency: Does not Exercise Seatbelt Use: always Sunscreen Use: No Assistive Devices: Walker Review of Systems Constitutional: + fever Eyes: no problem reported Ear, Nose, Mouth, Throat: no problem reported Respiratory: no cough and no dyspnea Cardiovascular: + edema; no chest pain Gastrointestinal: + diarrhea/loose stools; no abdominal pain Genitourinary: no dysuria, no urinary hesitancy or no hematuria Integumentary: + skin ulcer Neurologic: no confusion Physical Exam Constitutional: + morbidly obese Eyes: PERRL, conjunctivae normal, anicteric sclerae ENMT: external ear and nose normal, oropharynx normal Neck: trachea midline, no thyromegaly Respiratory: normal respiratory effort, lungs clear to auscultation Cardiovascular: Rate/Rhythm: regular rate and regular rhythm Extremities: + edema necrotic ulcer lateral aspect of L foot 4th & 5th toes L foot necrotic Prior amputation 1st & 2nd toes R foot Gastrointestinal (Abdomen): normal bowel sounds, soft, nontender, no hepatosplenomegaly Neurologic: awake; not confused Results & Data ([facility]) Vital Signs (Past 12 Hours) Vital Signs Temp Pulse Pulse Resp BP BP Pulse Ox 11/12/21 15:37 91 H 16 129/58 L 93 11/12/21 14:50 36.8 C 84 20 133/61 93 11/12/21 13:23 80 20 121/65 93 11/12/21 12:31 78 20 117/64 98 11/12/21 11:20 85 L 11/12/21 10:58 97 11/12/21 10:41 98 11/12/21 10:32 37.2 C 86 22 143/66 H 98 Laboratory Results Laboratory Results WBC 25.13 K/uL (4.8-10.8) H 11/12/21 Unknown RBC 2.62 M/uL (4.7-6.1) L 11/12/21 Unknown Hgb 7.5 g/dL (14.0-18.0) L 11/12/21 Unknown Hct 23.3 % (42-52) L 11/12/21 Unknown MCV 88.9 fL (80-100) 11/12/21 Unknown MCH 28.6 pg (25-34) 11/12/21 Unknown MCHC 32.2 g/dL (32-36) 11/12/21 Unknown RDW Std Deviation 53.9 fL (36.4-46.3) H 11/12/21 Unknown RDW Coeff of Millie 16.3 % (11.5-14.5) H 11/12/21 Unknown Plt Count 348 K/uL (130-400) 11/12/21 Unknown MPV 9.3 fL (7.4-10.4) 11/12/21 Unknown Immature Gran % (Auto) 0.4 % 11/12/21 Unknown Neut % (Auto) 93.5 % 11/12/21 Unknown Lymph % (Auto) 1.5 % 11/12/21 Unknown Ocean % (Auto) 4.6 % 11/12/21 Unknown Eos % (Auto) 0.0 % 11/12/21 Unknown Baso % (Auto) 0.0 % 11/12/21 Unknown Neut # (Auto) 23.49 K/uL (1.4-6.5) H 11/12/21 Unknown Lymph # (Auto) 0.38 K/uL (1.2-3.4) L 11/12/21 Unknown Ocean # (Auto) 1.15 K/uL (0.11-0.59) H 11/12/21 Unknown Eos # (Auto) 0.00 K/uL (0-0.5) 11/12/21 Unknown Baso # (Auto) 0.01 K/uL (0-0.2) 11/12/21 Unknown Immature Gran # (Auto) 0.10 K/uL (0.00-0.02) H 11/12/21 Unknown Absolute Nucleated RBC 0.03 K/uL (0-0) H 11/12/21 Unknown Nucleated RBC % (auto) 0.1 % 11/12/21 Unknown Anisocytosis Present 11/12/21 Unknown Rouleaux 1+ 11/12/21 Unknown Sodium 138 mmol/L (136-145) 11/12/21 Unknown Potassium 4.8 mmol/L (3.5-5.1) 11/12/21 Unknown Chloride 106 mmol/L (98-107) 11/12/21 Unknown Carbon Dioxide 14 mmol/L (21-32) L 11/12/21 Unknown Anion Gap 18 (3-11) H 11/12/21 Unknown BUN 111 mg/dl (6-23) H 11/12/21 Unknown Creatinine 7.18 mg/dl (0.6-1.4) H* 11/12/21 Unknown Est Cr Clr Drug Dosing 12.9 ml/min 11/12/21 Unknown Est GFR ( Amer) 8.2 ml/min 11/12/21 Unknown Est GFR (Non-Af Amer) 7.1 ml/min 11/12/21 Unknown BUN/Creatinine Ratio 15.5 (10-20) 11/12/21 Unknown Glucose 66 mg/dl (70-99(Fasting)) L 11/12/21 Unknown POC Glucose 74 mg/dl (70-99) 11/12/21 16:06 Lactate 0.6 mmol/L (0.4-2.0) 11/12/21 14:29 Calcium 9.2 mg/dl (8.5-10.1) 11/12/21 Unknown Total Bilirubin 0.4 mg/dl (0.2-1.0) 11/12/21 Unknown AST 22 U/L (13-39) 11/12/21 Unknown ALT 20 U/L (7-52) 11/12/21 Unknown Alkaline Phosphatase 61 U/L (34-104) 11/12/21 Unknown Troponin I 0.07 ng/ml (0-0.04) H* 11/12/21 Unknown B-Natriuretic Peptide 777 pg/ml (0-100) H 11/12/21 11:48 Total Protein 7.6 gm/dl (6.0-8.3) 11/12/21 Unknown Albumin 3.3 gm/dl (3.4-5.0) L 11/12/21 Unknown Globulin 4.3 gm/dl (2.5-4.0) H 11/12/21 Unknown Albumin/Globulin Ratio 0.8 (0.9-2) L 11/12/21 Unknown Lipase 23 U/L (11-82) 11/12/21 Unknown Influ A Molecular Assay Negative (Negative) 11/12/21 11:15 Influ B Molecular Assay Negative (Negative) 11/12/21 11:15 SARS-CoV-2, RNA, NAAT NEGATIVE (NEGATIVE) 11/12/21 11:15 Impressions Foot X-Ray 11/12/21 10:57 XR foot LT min 3V routine CLINICAL HISTORY: l foot osteo base of 5mtp and 5/4th digit TECHNIQUE: 3 views of the left foot were obtained. Comparison: None available at the time of this dictation. FINDINGS: Focal lucencies are seen at the distal fifth metatarsal and fifth proximal phalanx are seen. The remaining phalanges of the fourth and fifth digits do not demonstrate radiographically evident erosions. Chronic appearing fracture of the second digit distal phalanx is noted. Degenerative changes are seen. Vascular calcifications are noted. There is an ulcer at the level of the fifth metatarsophalangeal joint. IMPRESSION: Focal lucency is seen about the fifth metatarsophalangeal joint with associated ulcer compatible with osteomyelitis. Of note, MRI is a more sensitive modality for detection of osteomyelitis. ACT 112: Negative or not required by law. Electronically signed by: Saeed Hurst M.D. 11/12/2021 11:52 AM Chest X-Ray 11/12/21 10:58 XR chest 1V portable HISTORY: 71 years-old Male Chest Pain . Acute atypical chest pain COMPARISON: Chest radiograph 01/27/2021 TECHNIQUE: Portable AP view of the chest FINDINGS: Cardiac silhouette is enlarged, unchanged. Unchanged moderate right hemidiaphragmatic elevation. There is no pneumothorax, pleural effusion, airspace consolidation or overt pulmonary edema. Unchanged right basilar opacities suggestive of atelectasis. The bones appear grossly intact. IMPRESSION: No acute process. ACT 112: Negative or not required by law. The above report was generated using voice recognition software. It may contain grammatical, syntax or spelling errors. Electronically signed by: Pj Christianson M.D. 11/12/2021 11:24 AM PG Care Time/CCT Total # of Minutes Spent Total Time Spent with Patient: Total time spent is greater than 50% in coordination of care (as documented) at patient's floor/unit and/or counseling patient: Coding Level of Care Code 64807 Inpt Consult Level 5 Diagnoses Acute kidney injury N17.9 ESRD (end stage renal disease) N18.6 Anemia D64.9 Diabetic foot ulcer associated with type 2 diabetes mellitus E11.621; L97.509 Fecal incontinence R15.9
[2021-11-12] MEDS ORDERED: GLUCAGON FOR INJ 1 MG VIAL IM PRN (17:15)
[2021-11-12] MEDS ORDERED: GLUCOSE 40% GEL 15 GM TUBE PO PRN (17:15)
[2021-11-12] MEDS ORDERED: GLUCOSE 10 TABS/TUBE PO PRN (17:15)
[2021-11-12] MEDS ORDERED: CARBOHYDRATES FOR HYPOGLYCEMIA PO PRN (17:15)
[2021-11-12] MEDS ORDERED: DEXTROSE 50% 50 ML SYRINGE IV PRN (17:15)
[2021-11-12] MEDS ORDERED: SODIUM CHLORIDE 0.9% 250 ML IV PRN (17:48)
--- NOTE | 2021-11-12 17:55 | History & Physical Report ---
Date of Service November 12, 2021 Assessment & Plan (1) Osteomyelitis: Plan: Admit to telemetry Patient presenting by referral of PCP for evaluation of shortness of breath, chills, rigors In the ED, patient is afebrile, hemodynamically stable. On exam, patient is found to have necrotic tissue involving the left fourth and fifth toe and plantar surface of the left foot. X-ray concerning for osteomyelitis. WBC 25K, no other signs of sepsis at this time S/p Dapto and cefepime in the ED, continue with both Follow wound and blood cultures L LE Doppler negative for DVT Orthopedics consult (2) Acute kidney injury: (3) Chronic renal insufficiency, stage IV (severe): Plan: Nonoliguric Creatinine 7.18 (baseline ~ 4.0) Likely due to infection in combination with ARB use Hold losartan and furosemide Nephrology consult (4) Hypoxia: Plan: In the ED, documented to be 85% on room air and was placed on 4 L of oxygen via nasal cannula CXR clear During my exam, I was able to wean the patient down to 1 L Anemia maybe contributing Continue to monitor, wean O2 as able (5) Anemia: Plan: Hgb 7.5 (baseline ~ 10.0) CKD likely contributing Transfuse 1 unit PRBC per nephrology recommendations (6) Diabetes mellitus, type 2: Plan: Hgb A1c 8.0 01/2021 Hypoglycemic on admission labs, glucose 66 Hold Lantus for now Pharmacy glycemic consult, update A1c (7) Hypothyroidism: Plan: Continue levothyroxine (8) Pulmonary arterial hypertension: Plan: Appears euvolemic, hold furosemide due to EARLENE (9) DVT prophylaxis: Plan: SCDs for now due to anemia Admission and Anticipated Discharge Date Admission Date: November 12, 2021 History of Present Illness Chief Complaint: Shortness of breath, referred by PCP Primary Care Provider: Pedro Jon, 71-year-old male with PMH IDDM, CKD stage IV, SUKHWINDER, pulmonary hypertension, diabetic neuropathy, HTN, and other problems to below who presents to the ED by referral PCP for evaluation of shortness of breath. Patient reports that about 5 days ago, he noted that he was having some shortness of breath with exertion. He was not too concerned and waited for his scheduled appointment with his PCP today. While at PCPs office, patient was noted to have chills and rigors. He had a low-grade temp. He was sent to the ED for further evaluation. Patient reports that he has been having chills and rigors for about the past 1 week. Denies cough and sputum production. No abdominal pain, nausea, vomiting, diarrhea. Denies urinary symptoms. Patient reports that he regularly performs self foot exams with a mirror. In the ED, patient was afebrile, vital signs stable. WBC 25K. Creatinine 7.18 (baseline ~ 4.0). Patient was hypoxic on room air at 85%, was placed on 4 L of oxygen via nasal cannula. During my exam, I was able to wean the patient down to 1 L of oxygen via nasal cannula and he maintain saturations > 95%. CXR negative for acute cardiopulmonary disease. On exam, patient is noted to have necrotic tissue over the left fourth and fifth toes in the left plantar surface of the left foot. Foot x-ray shows Focal lucency is seen about the fifth metatarsophalangeal joint with associated ulcer compatible with osteomyelitis. Patient was given IV Dapto and IV cefepime. Allergies Allergy/AdvReac Type Severity Reaction Status Date / Time metformin Allergy Intermediate GI SYMPTOMS Verified 09/28/21 12:30 isosorbide Allergy Mild Rash Verified 09/28/21 12:30 lisinopril Allergy Unknown CAN'T Verified 09/28/21 12:30 REMEMBER Home Medications Medication Instructions Recorded Confirmed Type aspirin 81 mg tablet,delayed 81 mg PO DAILY #90 tab 06/06/20 11/12/21 Rx release (Adult Low Dose Aspirin) pen needle, diabetic 31 gauge x #100 ea 02/22/21 07/06/21 Rx 3/16" (BD Ultra-Fine Mini Pen Needle) amlodipine 5 mg tablet 5 mg PO DAILY #30 tab 03/28/21 11/12/21 Rx clonidine HCl 0.1 mg tablet 0.1 mg PO BID #180 tab 05/07/21 11/12/21 Rx atorvastatin 40 mg tablet 40 mg PO DAILY #90 tab 06/11/21 11/12/21 Rx diphenoxylate-atropine 2.5 1 tab PO QID PRN #60 tab 07/10/21 11/12/21 Rx mg-0.025 mg tablet (Lomotil) metoprolol succinate 100 mg 100 mg PO QAM #90 tab 09/03/21 11/12/21 Rx tablet,extended release 24 hr allopurinol 100 mg tablet 50 mg PO DAILY #45 tab 09/05/21 11/12/21 Rx insulin glargine 100 unit/mL (3 50 unit SQ PM #15 ml 09/05/21 11/12/21 Rx mL) subcutaneous pen (Lantus Solostar U-100 Insulin) brimonidine 0.15 % eye drops 1 drp OPB BID 11/12/21 11/12/21 History calcitriol 0.5 mcg capsule 0.5 mcg PO BID 11/12/21 11/12/21 History cholecalciferol (vitamin D3) 50 150 mcg PO DAILY 11/12/21 11/12/21 History mcg (2,000 unit) tablet furosemide 40 mg tablet 40 mg PO BID 11/12/21 11/12/21 History latanoprost 0.005 % eye drops 1 drp OPHTHALMIC (EYE) HS 11/12/21 11/12/21 History levothyroxine 50 mcg tablet 50 mcg PO DAILY 11/12/21 11/12/21 History loperamide 2 mg capsule (Imodium 2 mg PO Q4H PRN 11/12/21 11/12/21 History A-D) losartan 50 mg tablet 50 mg PO BID 11/12/21 11/12/21 History multivitamin 1 tab PO DAILY 11/12/21 11/12/21 History Past Med/Surg History Medical History Chronic renal insufficiency, stage IV (severe) Diabetes mellitus, type 2 Diabetic autonomic neuropathy Diabetic foot ulcer associated with type 2 diabetes mellitus Dyslipidemia Ex-smoker Foot drop RT FOOT (WEARS BRACE) Gait disturbance History of diabetic ulcer of foot Hx of gout Hypertension Hypothyroidism Morbid obesity with BMI of 45.0-49.9, adult Pulmonary arterial hypertension Sleep apnea NO DEVICE CURRENTLY Type 2 diabetes mellitus with retinopathy Vitamin D deficiency Surgical History Amputated toe of right foot History of cataract surgery RT/LEFT History of colonoscopy Family History Mother Pancreatic cancer Breast cancer Family history of diabetes mellitus Father Myocardial infarction Brother Prostate cancer Other No family history of adverse response to anesthesia Denies family history of Coronary heart disease Colorectal cancer Social History Smoking Status: Never smoker Second Hand Exposure: No; Do You Dip or Chew Tobacco: No; Hx Alcohol Use: No Hx Substance Use: No Preferred Language: Ugandan Communication Ability: Effective Hearing Ability: Normal Substation Inspector Required: No Beliefs That Will Affect Care: None Current Living Situation: Alone current occupational status: disabled Feels Safe at Home: Yes Safety Concerns: Feels Safe At This Time Childhood Exposure to Second-Hand Smoke: No caffeine: No during the past year weight has: remained stable Dental Care, Regularly: Yes Physical Activity Frequency: Does not Exercise Seatbelt Use: always Sunscreen Use: No Assistive Devices: Walker Review of Systems Review of Systems: ROS per HPI, all other systems reviewed and negative Physical Exam Constitutional: WD/WN, vitals as above + obese Eyes: PERRL, conjunctivae normal, anicteric sclerae ENMT: external ear and nose normal, oropharynx normal Respiratory: normal respiratory effort, lungs clear to auscultation Cardiovascular: Rate/Rhythm: regular rate and regular rhythm Vessels: normal peripheral pulses Extremities: + edema (+2 edema LLE (chronic per patient)) Gastrointestinal (Abdomen): normal bowel sounds, soft, nontender, no hepatosplenomegaly Musculoskeletal: no cyanosis or clubbing, extremities motor strength 5/5 Skin: no rashes, warm and dry Dressing in place to left foot, left vides with erythema and warm to touch, please refer to wound care photos of left foot wounds/necrotic tissue Neurologic: PERRL, EOMI, accommodation nl, no face palsy, no dysarthria Psychiatric: A+Ox3, euthymic affect Results & Data Results & Data ([facility]) Vital Signs (Past 12 Hours) Vital Signs Temp Pulse Pulse Resp BP BP Pulse Ox 11/12/21 15:37 91 H 16 129/58 L 93 11/12/21 14:50 36.8 C 84 20 133/61 93 11/12/21 13:23 80 20 121/65 93 11/12/21 12:31 78 20 117/64 98 11/12/21 11:20 85 L 11/12/21 10:58 97 11/12/21 10:41 98 11/12/21 10:32 37.2 C 86 22 143/66 H 98 Laboratory Results Short CBC 03/28/22 03/28/22 Range/Units Unknown Unknown WBC 25.13 H (4.8-10.8) K/uL Hgb 7.5 L (14.0-18.0) g/dL Hct 23.3 L (42-52) % Plt Count 348 (130-400) K/uL Creatinine 7.18 H* (0.6-1.4) mg/dl BMP 11/12/21 Unknown Sodium 138 Potassium 4.8 Chloride 106 Carbon Dioxide 14 L BUN 111 H Creatinine 7.18 H* Glucose 66 L Calcium 9.2 Cardiac Enzymes 11/12/21 Range/Units Unknown Troponin I 0.07 H* (0-0.04) ng/ml Liver Function 11/12/21 Range/Units Unknown Total Bilirubin 0.4 (0.2-1.0) mg/dl AST 22 (13-39) U/L ALT 20 (7-52) U/L Alkaline Phosphatase 61 (34-104) U/L Albumin 3.3 L (3.4-5.0) gm/dl Diagnostic Findings Foot X-Ray 11/12/21 10:57 XR foot LT min 3V routine CLINICAL HISTORY: l foot osteo base of 5mtp and 5/4th digit TECHNIQUE: 3 views of the left foot were obtained. Comparison: None available at the time of this dictation. FINDINGS: Focal lucencies are seen at the distal fifth metatarsal and fifth proximal phalanx are seen. The remaining phalanges of the fourth and fifth digits do not demonstrate radiographically evident erosions. Chronic appearing fracture of the second digit distal phalanx is noted. Degenerative changes are seen. Vascular calcifications are noted. There is an ulcer at the level of the fifth metatarsophalangeal joint. IMPRESSION: Focal lucency is seen about the fifth metatarsophalangeal joint with associated ulcer compatible with osteomyelitis. Of note, MRI is a more sensitive modality for detection of osteomyelitis. ACT 112: Negative or not required by law. Electronically signed by: Saeed Hurst M.D. 11/12/2021 11:52 AM Chest X-Ray 11/12/21 10:58 XR chest 1V portable HISTORY: 71 years-old Male Chest Pain . Acute atypical chest pain COMPARISON: Chest radiograph 01/27/2021 TECHNIQUE: Portable AP view of the chest FINDINGS: Cardiac silhouette is enlarged, unchanged. Unchanged moderate right hemidiaphragmatic elevation. There is no pneumothorax, pleural effusion, airspace consolidation or overt pulmonary edema. Unchanged right basilar opacities suggestive of atelectasis. The bones appear grossly intact. IMPRESSION: No acute process. ACT 112: Negative or not required by law. The above report was generated using voice recognition software. It may contain grammatical, syntax or spelling errors. Electronically signed by: Pj Christianson M.D. 11/12/2021 11:24 AM Venous Doppler Study 11/12/21 14:13 ULTRASOUND LEFT LOWER EXTREMITY VENOUS CLINICAL HISTORY: Left lower extremity edema. COMPARISON STUDY: Left lower extremity venous ultrasound dated 05/05/2015. TECHNIQUE: Real-time, grayscale, and color Doppler sonography of the deep veins of the left lower extremity was performed from the inguinal crease to the calf. Compression and augmentation were utilized. FINDINGS: There is no sonographic evidence of deep venous thrombosis identified in the left lower extremity. The common femoral, superficial femoral, and popliteal veins are patent and normally compressible. The greater saphenous vein and the profunda femoris vein at the junction with the common femoral vein are clear. The visualized calf veins are patent. IMPRESSION: There is no sonographic evidence of deep venous thrombosis identified in the left lower extremity. ACT 112: Negative or not required by law. Electronically signed by: Rigo Dalal M.D. 11/12/2021 6:31 PM Renal Ultrasound 11/12/21 17:37 ULTRASOUND KIDNEYS AND BLADDER CLINICAL HISTORY: Acute renal insufficiency. COMPARISON STUDY: Renal ultrasound dated 04/19/2020 TECHNIQUE: Real-time, grayscale, and color flow sonography of the kidneys and b ladder is performed. Images are reviewed in the transverse and longitudinal planes. The examination is degraded by large body habitus. FINDINGS: Kidneys: The kidneys are normal in size and echotexture. The right kidney measures 10.8 cm and the left kidney measures 11.7 cm. There is no hydronephrosis. No shadowing renal calculi are identified. There is no sonographic evidence of contour deforming renal mass lesion. No perinephric fluid is identified. Bladder: The bladder is decompressed and grossly unremarkable. Ureteral jets were not seen. IMPRESSION: 1. The kidneys are normal in size and without hydronephrosis. 2. The bladder was decompressed and grossly unremarkable. ACT 112: Negative or not required by law. Electronically signed by: Rigo Dalal M.D. 11/12/2021 6:36 PM Code Status & VTE Plan Code Status Patient is a DNR as per my discussion with him. Patient states that his Sister Kellee and niece Hannah would be his decision makers in the event he were to be unable to. VTE Prophylaxis Plan VTE Prophylaxis will be ordered: Yes Supervising Physician Co-Signing Physician Notes 71 yo M w/ PMH of CKD stage IV, Uncontrolled DM w/ PDN, HTN, SUKHWINDER, and HLD presented 11/12 to our ED at referral of PCP for evaluation of SOB. Pt's main concern is SOB which is there for 5 days, patient not aware of his Left foot infection complicated with necrotic tissue. Pt does have PDN upto b/l knees. Pt found to have Osteomyelitis, ortho consult, c/w antibiotic. Consider ID consult. Blood culture. No sepsis POA. BUN elevated, pt with EARLENE over CKD stage IV, Nephro consult, pt will likely need HD. Anemia present on admission, workup sent, f/u results. Pt getting an unit of blood. Upon Exam GENERAL: Alert and oriented x3. NAD, on RA. HEENT: No pallor, no icterus. Pupils equal, round and reactive to light. Oral mucosa moist. NECK: No JVD, no neck masses. HEART: S1 and S2 heard. Regular rate and rhythm. No murmur, no gallop. RESPIRATORY SYSTEM: Normal AP diameter. No accessory muscle use. No wheezing, no crackles. ABDOMEN: Soft, bowel sounds present, nontender, no distention. CENTRAL NERVOUS SYSTEM: No facial droop. Speech is clear. Obeys simple commands. Moves extremities. EXTREMITIES: LLE 2+ edema, erythematous/nontender (d/t PDN)/foul smelling cellulitis of left foot with necrotic tissues noted over left 4th and 5th digit. RLE trace edema w/ amputated Great toe. No sensation BLE upto knees. Chronic skin changes noted over RLE. Non compressible pulses over LLE. I have seen and examined the patient and have discussed the case with the provider above. I agree with the assessment and plan as stated. (1) Osteomyelitis Laterality: unspecified laterality Osteomyelitis location: foot Osteomyelitis type: unspecified type Qualified Code(s): M86.9 - Osteomyelitis, unspecified
--- NOTE | 2021-11-12 18:33 | Ultrasound Report ---
ULTRASOUND LEFT LOWER EXTREMITY VENOUS CLINICAL HISTORY: Left lower extremity edema. COMPARISON STUDY: Left lower extremity venous ultrasound dated 05/05/2015. TECHNIQUE: Real-time, grayscale, and color Doppler sonography of the deep veins of the left lower ext remity was performed from the inguinal crease to the calf. Compression and augmentation were utilized . FINDINGS: There is no sonographic evidence of deep venous thrombosis identified in the left lower ext remity. The common femoral, superficial femoral, and popliteal veins are patent and normally compress ible. The greater saphenous vein and the profunda femoris vein at the junction with the common femora l vein are clear. The visualized calf veins are patent. IMPRESSION: There is no sonographic evidence of deep venous thrombosis identified in the left lower e xtremity. ACT 112: Negative or not required by law. Electronically signed by: Rigo Dalal M.D. 11/12/2021 6:31 PM
--- NOTE | 2021-11-12 18:37 | Ultrasound Report ---
ULTRASOUND KIDNEYS AND BLADDER CLINICAL HISTORY: Acute renal insufficiency. COMPARISON STUDY: Renal ultrasound dated 04/19/2020 TECHNIQUE: Real-time, grayscale, and color flow sonography of the kidneys and bladder is performed. I mages are reviewed in the transverse and longitudinal planes. The examination is degraded by large caron dy habitus. FINDINGS: Kidneys: The kidneys are normal in size and echotexture. The right kidney measures 10.8 cm and the le ft kidney measures 11.7 cm. There is no hydronephrosis. No shadowing renal calculi are identified. T here is no sonographic evidence of contour deforming renal mass lesion. No perinephric fluid is ident ified. Bladder: The bladder is decompressed and grossly unremarkable. Ureteral jets were not seen. IMPRESSION: 1. The kidneys are normal in size and without hydronephrosis. 2. The bladder was decompressed and grossly unremarkable. ACT 112: Negative or not required by law. Electronically signed by: Rigo Dalal M.D. 11/12/2021 6:36 PM
--- NOTE | 2021-11-12 20:35 | Pharmacy Report ---
Pharmacy Glycemic Short Note 2 - Date of Service November 12, 2021 - Glycemic Short BSG Results (Last 24 hours): 11/12/21 11/12/21 11/12/21 13:28 16:06 19:46 Glucose POC Glucose 71 74 77 11/12/21 Unknown Glucose 66 L POC Glucose OUTPATIENT ANTIDIABETIC REGIMEN: * Lantus 50 units SC PM * HbA1c pending ASSESSMENT: * 71 yo admitted secondary to osteomyelitis. Pharmacy has been consulted to assist with inpatient glycemic management. * Ordered a type 2 diabetic diet. Currently on Daptomycin and Cefepime. SCr at 7.18 mg/dL (patient is ESRD but refuses HD). * Did take 50 units of Lantus evening prior to admission. * Will hold Lantus for now given BSGs. * Start Novolog only. Target BSG of 110-140 mg/dL to help with infection and promote wound healing. PLAN FOR INPATIENT GLYCEMIC CONTROL: * Basal insulin * On hold * Bolus insulin * NovoLog per scale ACHS or Q6hrs while NPO * Goal Range: Low 110 mg/dL - High 140 mg/dL * Correction Factor: 30 mg/dL/unit * Nutritional / Prandial insulin per carb ratio of 1 unit per 10 grams CHO consumed
[2021-11-12] MEDS: CALCITRIOL 0.25 MCG CAPSULE PO SCH (21:06)
[2021-11-12] MEDS: cloNIDine HCL 0.1 MG TAB PO SCH (21:06)
[2021-11-12] MEDS: BRIMONIDINE TARTRATE-P 0.15% 5 ML BTL OPB SCH (21:07)
[2021-11-12] MEDS: INSULIN ASPART PER UNIT SC SCH ×2 (21:08→21:12)
[2021-11-12] MEDS: LATANOPROST 0.005% OP SOLN 2.5 ML BTL OP SCH (21:34)
[2021-11-13] MEDS: SODIUM CHLORIDE 0.9% 1000ML 1,000 ML IV SCH ×2 (01:37→08:00)
[2021-11-13 02:24] LABS: Hematocrit (blood only) 23.9 % (42-52); Hemoglobin 7.7 g/dL (14.0-18.0); Mean Corpuscular Hemoglobin 28.3 pg (25-34); Mean Corpuscular Hgb Conc 32.2 g/dL (32-36); Mean Corpuscular Volume 87.9 fL (80-100); Mean Platelet Volume 8.5 fL (7.4-10.4); Platelet Count 277 K/uL (130-400); RDW Coefficient of Variation 16.3 % (11.5-14.5); RDW Standard Deviation 52.6 fL (36.4-46.3); Red Blood Count 2.72 M/uL (4.7-6.1); White Blood Count 20.09 K/uL (4.8-10.8)
[2021-11-13 02:44] LABS: Iron 13 mcg/dl (35-175); Total Iron Binding Cap Calc 160 mcg/dl (250-450); Transferrin (FE) Percent Satur 8 % (20-50); Unsaturated Iron Binding Cap 147 mcg/dl (155-355)
[2021-11-13 02:46] LABS: BUN Creatinine Ratio 17.6 (10-20); Calcium 8.7 mg/dl (8.5-10.1); Creatinine Clr Calc Pharmacy 13.5 ml/min; Est GFR (African American) 8.9 ml/min; Est GFR (Non-African American) 7.7 ml/min; Magnesium 2.1 mg/dl (1.7-2.4); Phosphorus 8.2 mg/dl (2.5-4.9); Potassium 4.5 mmol/L (3.5-5.1)
[2021-11-13 04:39] LABS: Folate (Folic Acid) 7.48 ng/ml (>5.38)
[2021-11-13 07:19] LABS: Estimated Average Glucose 177 mg/dl; Hemoglobin A1C 7.8 % (4.5-5.6)
[2021-11-13] MEDS: LEVOTHYROXINE SODIUM 50 MCG TABLET PO SCH (07:34)
[2021-11-13] MEDS: allopurinoL 100 MG TAB PO SCH (07:35)
[2021-11-13] MEDS: amLODIPine BESYLATE 5 MG TAB PO SCH (07:35)
[2021-11-13] MEDS: ASPIRIN 81 MG ECTAB PO SCH (07:36)
[2021-11-13] MEDS: CALCITRIOL 0.25 MCG CAPSULE PO SCH ×2 (07:37→21:16)
[2021-11-13] MEDS: BRIMONIDINE TARTRATE-P 0.15% 5 ML BTL OPB SCH ×2 (07:37→21:13)
[2021-11-13] MEDS: cloNIDine HCL 0.1 MG TAB PO SCH ×2 (07:38→21:25)
[2021-11-13] MEDS: METOPROLOL SUCC 50MG EXT REL TAB PO SCH (07:39)
[2021-11-13] MEDS: INSULIN ASPART PER UNIT SC SCH ×5 (07:42→21:12)
--- NOTE | 2021-11-13 08:41 | Nephrology Progress Note ---
Date of Service November 13, 2021 Assessment & Plan (1) Acute kidney injury: Plan: * EARLENE due to infection/inflammation in the setting of ARB therapy * Losartan has been stopped * Urinalysis ordered - pending * 11/12/21 renal US: R kidney 10.8 cm, L kidney 11.7 cm. No hydronephrosis, calculi or mass * Volume status is acceptable * Patient has AGA related to EARLENE/CKD, infection. Will add NaHCO3 to IVF * Monitor PRP * Discussed potential need for initiation of HD during this hospitalization. Patient states that he is now accepting of HD if needed (2) ESRD (end stage renal disease): Plan: * Baseline Cr 4.2 - 4.4 w/ EGFR 11 - 13 cc/min. Renal impairment due to combination AODM, vascular disease, obesity * Previously declined AVF creation of dialysis preparation due to fecal incontinence (3) Anemia: Plan: * h/o CKD associated anemia on Aranesp therapy * Given necrotic foot ulcer, recommend blood transfusion. Patient likely will not respond to ROBERTH due to inflammation * Transfused 1 U PRBC 11/12/21 (4) Diabetic foot ulcer associated with type 2 diabetes mellitus: Plan: * Antibiotic therapy as per primary service. Recommend consultation w/ Pharmacy to dose appropriately for ESRD * 11/06 CARLOS ENRIQUE: Hemodynamically significant stenosis is seen most pronounced in the distal anterior tibial artery and dorsalis pedis artery * Await surgical evaluation (5) Fecal incontinence: Plan: * Await GI recommendations Admission and Anticipated Discharge Date Admission Date: November 12, 2021 Subjective Mr. Arias was evaluated in his hospital room this morning. He is tolerating gentle hydration without dyspnea. He denies uremic symptoms. Mr. Arias is NPO and awaiting surgical evaluation of his L foot Review of Systems Constitutional: + fever Eyes: no problem reported Ear, Nose, Mouth, Throat: no problem reported Respiratory: no cough and no dyspnea Cardiovascular: + edema; no chest pain Gastrointestinal: + diarrhea/loose stools; no abdominal pain Genitourinary: no dysuria, no urinary hesitancy or no hematuria Integumentary: + skin ulcer Neurologic: no confusion Physical Exam Constitutional: + morbidly obese Eyes: PERRL, conjunctivae normal, anicteric sclerae ENMT: external ear and nose normal, oropharynx normal Neck: trachea midline, no thyromegaly Respiratory: normal respiratory effort, lungs clear to auscultation Cardiovascular: Rate/Rhythm: regular rate and regular rhythm Extremities: + edema Gastrointestinal (Abdomen): normal bowel sounds, soft, nontender, no hepatosplenomegaly Neurologic: awake; not confused Results & Data ([facility]) Vital Signs (Past 12 Hours) Vital Signs Temp Pulse Pulse Resp BP BP Pulse Ox 11/13/21 07:19 36.8 C 90 19 140/76 95 11/13/21 04:15 37.3 C 90 22 132/71 92 11/12/21 22:48 37.0 C 82 18 135/66 96 11/12/21 21:41 37.0 C 82 18 135/66 96 11/12/21 21:11 36.8 C 80 18 130/65 95 11/12/21 20:56 36.9 C 82 22 140/71 94 11/12/21 20:55 37.2 C 83 17 131/72 94 Laboratory Results Laboratory Tests 11/13/21 11/13/21 11/13/21 02:11 02:11 02:11 WBC 20.09 H Hgb 7.7 L Hct 23.9 L Plt Count 277 Sodium 140 Potassium 4.5 Chloride 109 H Carbon Dioxide 14 L BUN 118 H Creatinine 6.71 H* D Calcium 8.7 Phosphorus 8.2 H Magnesium 2.1 Transferrin % Sat 8 L Ferritin 11/13/21 08:19 WBC Hgb Hct Plt Count Sodium Potassium Chloride Carbon Dioxide BUN Creatinine Calcium Phosphorus Magnesium Transferrin % Sat Ferritin Pending Diagnostic Findings 11/12/21 Renal US: The kidneys are normal in size and echotexture. The right kidney measures 10.8 cm and the left kidney measures 11.7 cm. There is no hydronephrosis. No shadowing renal calculi are identified. There is no sonographic evidence of contour deforming renal mass lesion. No perinephric fluid is identified. 11/12/21 CARLOS ENRIQUE: Hemodynamically significant stenosis is seen most pronounced in the distal anterior tibial artery and dorsalis pedis artery. PG Care Time/CCT Total # of Minutes Spent Total Time Spent with Patient: Total time spent is greater than 50% in coordination of care (as documented) at patient's floor/unit and/or counseling patient: Coding Level of Care Code 94482 Subseq Hosp Care Lvl 3 Diagnoses Acute kidney injury N17.9 ESRD (end stage renal disease) N18.6 Anemia D64.9 Diabetic foot ulcer associated with type 2 diabetes mellitus E11.621; L97.509 Fecal incontinence R15.9
[2021-11-13] MEDS: CYANOCOBALAMIN (B-12) 100 MCG TABLET PO SCH (09:02)
[2021-11-13] MEDS: FOLIC ACID 1 MG TAB PO SCH (09:02)
--- NOTE | 2021-11-13 09:27 | Ultrasound Report ---
US arterial duplex LE LT CLINICAL HISTORY: non healing wound TECHNIQUE: Real-time grayscale and color and spectral Doppler ultrasound imaging of the left lower ex tremity arteries was performed. Measurements calculated based on NASCET criteria. COMPARISON: None available at the time of this dictation. FINDINGS: LEFT: Common femoral artery: Triphasic waveforms. Peak systolic velocity (PSV) 91 cm/s. Deep femoral artery: Triphasic waveforms. PSV 65 cm/s. Superficial femoral artery: Triphasic waveforms. PSV 133 cm/s. Popliteal artery: Triphasic waveforms. PSV 135 cm/s. Anterior tibial artery: Biphasic waveforms. PSV 116 cm/s. The distal anterior tibial artery is monoph asic, PSV 10.9. Posterior tibial artery: Biphasic waveforms. PSV 80 cm/s. Peroneal artery: Biphasic waveforms. PSV 57 cm/s. Dorsalis pedis: Monophasic waveforms. PSV 50 cm/s. Reference ranges: Normal Ankle/Brachial Index (CARLOS ENRIQUE) 1.0-1.4; 0.91-0.99 borderline; < or = 0.9 abnormal (0.7-0.89 mild, 0.51-0.69 moderate, < or = 0.5 severe peripheral arterial disease). Normal Toe/Brachial Index (TBI) > or = 0.6; < 0.6 abnormal (0.34-0.59 mild, 0.12-0.34 moderate, < or = 0.11 severe peripheral arterial disease). IMPRESSION: Hemodynamically significant stenosis is seen most pronounced in the distal anterior tibial artery and dorsalis pedis artery. ACT 112: Negative or not required by law. Electronically signed by: Saeed Hurst M.D. 11/13/2021 9:25 AM
--- NOTE | 2021-11-13 10:31 | Magnetic Resonance Report ---
MR foot LT w/o con, MR ankle LT wo con HISTORY: 71 years-old Male osteomyelitis Patient presents with a diabetic soft tissue ulcer of the l ateral forefoot. COMPARISON: Left foot radiographs 11/12/2021 TECHNIQUE: Multiplanar multisequence MRI of the left foot and ankle was obtained without the use of I V contrast. FINDINGS: FOOT: 2.6 x 3.1 cm soft tissue ulcer of the lateral forefoot is noted with moderate cellulitis changes. No abscess. The ulcer is superficial to the fifth metatarsal head and neck and fifth metatarsal phalange al joint. There is extensive marrow edema involving the fifth metatarsal head and neck and distal jose physeal distribution. Decreased T1 marrow signal is noted within these distributions with associated cortical indistinctness noted both medially and laterally. Similar-appearing marrow changes are also noted within the fifth proximal, middle and distal phalanges with cortical erosions. Pathologic fract ure involves the base of the fifth proximal phalanx. Soft tissue gas within the forefoot surrounds th e fourth and fifth metatarsophalangeal joints. No cortical erosions or significant marrow edema of th e fourth digit. There is mild multifocal osteoarthritis. Cortical erosions with periarticular debris within the tarsal metatarsal joints suggests early changes of Charcot neuropathy. Diffuse muscle atro phy with edema. Tenosynovitis of the extensor digitorum. ANKLE: Diffuse cellulitis with chronic muscular denervation changes. Suggested Charcot neuropathy of the mid foot. 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 N o acute fracture, dislocation or evidence of acute osteomyelitis. Moderate sized enthesophytes of the calcaneus. Thickening of the medial plantar cord compatible with chronic plantar fasciitis. Mild tib iotalar osteoarthritis. IMPRESSION: 1. Soft tissue ulcer of the lateral forefoot with cellulitis. No abscess. 2. Osteomyelitis of the fifth metatarsal head, proximal, middle and distal phalanges. 3. Soft tissue gas of the forefoot may be secondary to direct extension from the soft tissue ulcer ve rsus necrotizing fasciitis. 4. Tenosynovitis of the extensor digitorum, possibly infectious. 5. 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 6. Chronic denervation changes with suggested Charcot neuropathy of the midfoot. ACT 112: Negative or not required by law. The above report was generated using voice recognition software. It may contain grammatical, syntax o r spelling errors. Dictated: 11/13/2021 9:22 AM Transcribed: 11/13/2021 9:45 AM Karina [id number] [email or web address] Electronically signed by: Pj Christianson M.D. 11/13/2021 10:29 AM
--- NOTE | 2021-11-13 10:39 | Electrocardiogram Report ---
Test Reason : Blood Pressure : / mmHG Vent. Rate : 086 BPM Atrial Rate : 082 BPM P-R Int : 192 ms QRS Dur : 090 ms QT Int : 360 ms P-R-T Axes : 075 -11 075 degrees QTc Int : 430 ms Sinus rhythm with Premature atrial complexes Otherwise normal ECG When compared with ECG of 12-NOV-2021 10:30, Sinus rhythm has replaced Atrial fibrillation Confirmed by Royer Duenas ([id number]) on 11/13/2021 10:39:12 AM Referred By: Pedro Jon Confirmed By:Royer Duenas
[2021-11-13] MEDS: SODIUM BICARBONATE 8.4% 75 MEQ in SODIUM CHLORIDE 0.45 % 1,000 ML IV SCH (11:09)
--- NOTE | 2021-11-13 11:16 | Orthopedic Consultation ---
Date of Consultation November 13, 2021 Assessment & Plan (1) Diabetic foot ulcer associated with type 2 diabetes mellitus: X-ray and MRI reviewed. Duplex artery scan reviewed. Patient is going to require a significant debridement. Noted significant stenosis of the dorsalis pedis and anterior tibial arteries. Consult has been placed for vascular service for their input. I will discuss the case with Dr. Jay who will review the MRI and x-rays as well. History of Present Illness Reason for Consultation: Necrotic left fourth and fifth toes with large necrotic plantar lateral midfoot diabetic ulcer; osteomyelitis of the fifth metatarsal head, proximal, middle,distal phalanges Attending Physician: Jaun Shrestha MD History of Present Illness Patient is a 71-year-old male with PMH IDDM, CKD stage IV, SUHKWINDER, pulmonary hypertension, diabetic neuropathy, HTN, dyslipidemia and other medical problems listed below. Patient was seen in the emergency room yesterday secondary to shortness of breath on exertion that had started approximately 1 week ago. He had gone to his PCP to be evaluated. Patient was noted to have chills and rigors and was thusly sent to the emergency department. He was seen [facility] the staff [facility] During the time of their exam it was noted he had necrotic toes as well as a diabetic ulcer of the left foot. Foot x-ray was showing osteomyelitis of the fifth metatarsal head. He was thusly admitted for further medical care and we have been asked to see him for his diabetic ulcer and necrotic toes. Patient is currently awake and alert. He states that several days ago he had noticed the color change in his toes. He states he has had a dense neuropathy of the lower extremities for several years now. He denies pain. He states he had his right great toe removed several years ago. He has not had any problem with his right lower extremity at that point in time. Allergies Allergy/AdvReac Type Severity Reaction Status Date / Time metformin Allergy Intermediate GI SYMPTOMS Verified 09/28/21 12:30 isosorbide Allergy Mild Rash Verified 09/28/21 12:30 lisinopril Allergy Unknown CAN'T Verified 09/28/21 12:30 REMEMBER Home Medications Medication Instructions Recorded Confirmed Type aspirin 81 mg tablet,delayed 81 mg PO DAILY #90 tab 06/06/20 11/12/21 Rx release (Adult Low Dose Aspirin) pen needle, diabetic 31 gauge x #100 ea 02/22/21 07/06/21 Rx 3/16" (BD Ultra-Fine Mini Pen Needle) amlodipine 5 mg tablet 5 mg PO DAILY #30 tab 03/28/21 11/12/21 Rx clonidine HCl 0.1 mg tablet 0.1 mg PO BID #180 tab 05/07/21 11/12/21 Rx atorvastatin 40 mg tablet 40 mg PO DAILY #90 tab 06/11/21 11/12/21 Rx diphenoxylate-atropine 2.5 1 tab PO QID PRN #60 tab 07/10/21 11/12/21 Rx mg-0.025 mg tablet (Lomotil) metoprolol succinate 100 mg 100 mg PO QAM #90 tab 09/03/21 11/12/21 Rx tablet,extended release 24 hr allopurinol 100 mg tablet 50 mg PO DAILY #45 tab 09/05/21 11/12/21 Rx insulin glargine 100 unit/mL (3 50 unit SQ PM #15 ml 09/05/21 11/12/21 Rx mL) subcutaneous pen (Lantus Solostar U-100 Insulin) brimonidine 0.15 % eye drops 1 drp OPB BID 11/12/21 11/12/21 History calcitriol 0.5 mcg capsule 0.5 mcg PO BID 11/12/21 11/12/21 History cholecalciferol (vitamin D3) 50 150 mcg PO DAILY 11/12/21 11/12/21 History mcg (2,000 unit) tablet furosemide 40 mg tablet 40 mg PO BID 11/12/21 11/12/21 History latanoprost 0.005 % eye drops 1 drp OPHTHALMIC (EYE) HS 11/12/21 11/12/21 History levothyroxine 50 mcg tablet 50 mcg PO DAILY 11/12/21 11/12/21 History loperamide 2 mg capsule (Imodium 2 mg PO Q4H PRN 11/12/21 11/12/21 History A-D) losartan 50 mg tablet 50 mg PO BID 11/12/21 11/12/21 History multivitamin 1 tab PO DAILY 11/12/21 11/12/21 History Patient History Medical History Chronic renal insufficiency, stage IV (severe) Diabetes mellitus, type 2 Diabetic autonomic neuropathy Diabetic foot ulcer associated with type 2 diabetes mellitus Dyslipidemia Ex-smoker Foot drop RT FOOT (WEARS BRACE) Gait disturbance History of diabetic ulcer of foot Hx of gout Hypertension Hypothyroidism Morbid obesity with BMI of 45.0-49.9, adult Pulmonary arterial hypertension Sleep apnea NO DEVICE CURRENTLY Type 2 diabetes mellitus with retinopathy Vitamin D deficiency Surgical History Amputated toe of right foot History of cataract surgery RT/LEFT History of colonoscopy Family History Mother Pancreatic cancer Breast cancer Family history of diabetes mellitus Father Myocardial infarction Brother Prostate cancer Other No family history of adverse response to anesthesia Denies family history of Coronary heart disease Colorectal cancer Social History Smoking Status: Never smoker Second Hand Exposure: No; Do You Dip or Chew Tobacco: No; Hx Alcohol Use: No Hx Substance Use: No Preferred Language: Japanese Communication Ability: Effective Hearing Ability: Normal 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 No acute distress. Pleasant cooperative. On examination of his left foot, there is a foul odor noted once his sock is removed. He had a large 6 x 6 Optifoam dressing covering a good portion of the lateral left foot. This dressing appears saturated. The dressing was removed and there was some noted Aquacel Ag on the diabetic ulcer as well as on the toes. This was all removed. Patient has a large lateral midfoot diabetic ulcer that extends to the plantar surface. There is some blackened eschar noted at the proximal portion of this. The majority of the ulcer is soft and saleh. Some maceration noted around the edges. His fifth toe is completely necrotic and black the fourth toe was also completely black and necrotic. He has moderate swelling of his forefoot with erythema and with swelling in the first, second, and third toes. I cannot appreciate a dorsalis pedis pulse. Cap refill of the first second and third toes is greater than 2 seconds. He does have lower extremity swelling above the ankle and some venous stasis changes. He has a dense neuropathy of the lower extremity down to the foot. Also appears to have some early stages of a ulceration between the second and third toes. Results & Data ([facility]) Vital Signs (Past 12 Hours) Vital Signs Temp Pulse Pulse Resp BP Pulse Ox 11/13/21 08:00 77 11/13/21 07:19 36.8 C 90 19 140/76 95 11/13/21 04:15 37.3 C 90 22 132/71 92 Laboratory Results 11/13/21 11/13/21 11/13/21 Range/Units 11:26 08:19 07:16 WBC (4.8-10.8) K/uL RBC (4.7-6.1) M/uL Hgb (14.0-18.0) g/dL Hct (42-52) % MCV (80-100) fL MCH (25-34) pg MCHC (32-36) g/dL RDW Std Deviation (36.4-46.3) fL RDW Coeff of Millie (11.5-14.5) % Plt Count (130-400) K/uL MPV (7.4-10.4) fL Immature Gran % (Auto) % Neut % (Auto) % Lymph % (Auto) % [place] % (Auto) % Eos % (Auto) % Baso % (Auto) % Neut # (Auto) (1.4-6.5) K/uL Lymph # (Auto) (1.2-3.4) K/uL [place] # (Auto) (0.11-0.59) K/uL Eos # (Auto) (0-0.5) K/uL Baso # (Auto) (0-0.2) K/uL Immature Gran # (Auto) (0.00-0.02) K/uL Anisocytosis Rouleaux Sodium (136-145) mmol/L Potassium (3.5-5.1) mmol/L Chloride (98-107) mmol/L Carbon Dioxide (21-32) mmol/L Anion Gap (3-11) BUN (6-23) mg/dl Creatinine (0.6-1.4) mg/dl Est Cr Clr Drug Dosing ml/min Est GFR ( Amer) ml/min Est GFR (Non-Af Amer) ml/min BUN/Creatinine Ratio (10-20) Glucose (70-99(Fasting)) mg/dl POC Glucose 92 86 (70-99) mg/dl Estimat Average Glucose mg/dl Hemoglobin A1c (4.5-5.6) % Lactate (0.4-2.0) mmol/L Calcium (8.5-10.1) mg/dl Phosphorus (2.5-4.9) mg/dl Magnesium (1.7-2.4) mg/dl Iron (35-175) mcg/dl TIBC (250-450) mcg/dl Unsaturated IBC (155-355) mcg/dl Transferrin % Sat (20-50) % Ferritin 190.2 (8-388) ng/ml Total Bilirubin (0.2-1.0) mg/dl AST (13-39) U/L ALT (7-52) U/L Alkaline Phosphatase (34-104) U/L Troponin I (0-0.04) ng/ml B-Natriuretic Peptide (0-100) pg/ml Total Protein (6.0-8.3) gm/dl Albumin (3.4-5.0) gm/dl Globulin (2.5-4.0) gm/dl Albumin/Globulin Ratio (0.9-2) Lipase (11-82) U/L Vitamin B12 (180-914) pg/ml Folate (>5.38) ng/ml Nasal Screen MRSA (PCR) (Negative) Influ A Molecular Assay (Negative) Influ B Molecular Assay (Negative) Blood Type Antibody Screen Crossmatch 11/13/21 11/13/21 11/13/21 Range/Units 02:11 02:11 02:11 WBC (4.8-10.8) K/uL RBC (4.7-6.1) M/uL Hgb (14.0-18.0) g/dL Hct (42-52) % MCV (80-100) fL MCH (25-34) pg MCHC (32-36) g/dL RDW Std Deviation (36.4-46.3) fL RDW Coeff of Millie (11.5-14.5) % Plt Count (130-400) K/uL MPV (7.4-10.4) fL Immature Gran % (Auto) % Neut % (Auto) % Lymph % (Auto) % [place] % (Auto) % Eos % (Auto) % Baso % (Auto) % Neut # (Auto) (1.4-6.5) K/uL Lymph # (Auto) (1.2-3.4) K/uL [place] # (Auto) (0.11-0.59) K/uL Eos # (Auto) (0-0.5) K/uL Baso # (Auto) (0-0.2) K/uL Immature Gran # (Auto) (0.00-0.02) K/uL Anisocytosis Rouleaux Sodium (136-145) mmol/L Potassium (3.5-5.1) mmol/L Chloride (98-107) mmol/L Carbon Dioxide (21-32) mmol/L Anion Gap (3-11) BUN (6-23) mg/dl Creatinine (0.6-1.4) mg/dl Est Cr Clr Drug Dosing ml/min Est GFR ( Amer) ml/min Est GFR (Non-Af Amer) ml/min BUN/Creatinine Ratio (10-20) Glucose (70-99(Fasting)) mg/dl POC Glucose (70-99) mg/dl Estimat Average Glucose 177 mg/dl Hemoglobin A1c 7.8 H (4.5-5.6) % Lactate (0.4-2.0) mmol/L Calcium (8.5-10.1) mg/dl Phosphorus (2.5-4.9) mg/dl Magnesium (1.7-2.4) mg/dl Iron 13 L (35-175) mcg/dl TIBC 160 L (250-450) mcg/dl Unsaturated IBC 147 L (155-355) mcg/dl Transferrin % Sat 8 L (20-50) % Ferritin (8-388) ng/ml Total Bilirubin (0.2-1.0) mg/dl AST (13-39) U/L ALT (7-52) U/L Alkaline Phosphatase (34-104) U/L Troponin I 0.07 H* (0-0.04) ng/ml B-Natriuretic Peptide (0-100) pg/ml Total Protein (6.0-8.3) gm/dl Albumin (3.4-5.0) gm/dl Globulin (2.5-4.0) gm/dl Albumin/Globulin Ratio (0.9-2) Lipase (11-82) U/L Vitamin B12 (180-914) pg/ml Folate (>5.38) ng/ml Nasal Screen MRSA (PCR) (Negative) Influ A Molecular Assay (Negative) Influ B Molecular Assay (Negative) Blood Type Antibody Screen Crossmatch 11/13/21 11/13/21 11/13/21 Range/Units 02:11 02:11 02:11 WBC 20.09 H (4.8-10.8) K/uL RBC 2.72 L (4.7-6.1) M/uL Hgb 7.7 L (14.0-18.0) g/dL Hct 23.9 L (42-52) % MCV 87.9 (80-100) fL MCH 28.3 (25-34) pg MCHC 32.2 (32-36) g/dL RDW Std Deviation 52.6 H (36.4-46.3) fL RDW Coeff of Millie 16.3 H (11.5-14.5) % Plt Count 277 (130-400) K/uL MPV 8.5 (7.4-10.4) fL Immature Gran % (Auto) % Neut % (Auto) % Lymph % (Auto) % [place] % (Auto) % Eos % (Auto) % Baso % (Auto) % Neut # (Auto) (1.4-6.5) K/uL Lymph # (Auto) (1.2-3.4) K/uL [place] # (Auto) (0.11-0.59) K/uL Eos # (Auto) (0-0.5) K/uL Baso # (Auto) (0-0.2) K/uL Immature Gran # (Auto) (0.00-0.02) K/uL Anisocytosis Rouleaux Sodium 140 (136-145) mmol/L Potassium 4.5 (3.5-5.1) mmol/L Chloride 109 H (98-107) mmol/L Carbon Dioxide 14 L (21-32) mmol/L Anion Gap 17 H (3-11) BUN 118 H (6-23) mg/dl Creatinine 6.71 H* D (0.6-1.4) mg/dl Est Cr Clr Drug Dosing 13.5 ml/min Est GFR ( Amer) 8.9 ml/min Est GFR (Non-Af Amer) 7.7 ml/min BUN/Creatinine Ratio 17.6 (10-20) Glucose 89 (70-99(Fasting)) mg/dl POC Glucose (70-99) mg/dl Estimat Average Glucose mg/dl Hemoglobin A1c (4.5-5.6) % Lactate (0.4-2.0) mmol/L Calcium 8.7 (8.5-10.1) mg/dl Phosphorus 8.2 H (2.5-4.9) mg/dl Magnesium 2.1 (1.7-2.4) mg/dl Iron (35-175) mcg/dl TIBC (250-450) mcg/dl Unsaturated IBC (155-355) mcg/dl Transferrin % Sat (20-50) % Ferritin (8-388) ng/ml Total Bilirubin (0.2-1.0) mg/dl AST (13-39) U/L ALT (7-52) U/L Alkaline Phosphatase (34-104) U/L Troponin I (0-0.04) ng/ml B-Natriuretic Peptide (0-100) pg/ml Total Protein (6.0-8.3) gm/dl Albumin (3.4-5.0) gm/dl Globulin (2.5-4.0) gm/dl Albumin/Globulin Ratio (0.9-2) Lipase (11-82) U/L Vitamin B12 489 (180-914) pg/ml Folate 7.48 (>5.38) ng/ml Nasal Screen MRSA (PCR) (Negative) Influ A Molecular Assay (Negative) Influ B Molecular Assay (Negative) Blood Type Antibody Screen Crossmatch 11/13/21 11/12/21 11/12/21 Range/Units 01:25 Unknown Unknown WBC (4.8-10.8) K/uL RBC (4.7-6.1) M/uL Hgb (14.0-18.0) g/dL Hct (42-52) % MCV (80-100) fL MCH (25-34) pg MCHC (32-36) g/dL RDW Std Deviation (36.4-46.3) fL RDW Coeff of Millie (11.5-14.5) % Plt Count (130-400) K/uL MPV (7.4-10.4) fL Immature Gran % (Auto) 0.4 % Neut % (Auto) 93.5 % Lymph % (Auto) 1.5 % York % (Auto) 4.6 % Eos % (Auto) 0.0 % Baso % (Auto) 0.0 % Neut # (Auto) 23.49 H (1.4-6.5) K/uL Lymph # (Auto) 0.38 L (1.2-3.4) K/uL York # (Auto) 1.15 H (0.11-0.59) K/uL Eos # (Auto) 0.00 (0-0.5) K/uL Baso # (Auto) 0.01 (0-0.2) K/uL Immature Gran # (Auto) 0.10 H (0.00-0.02) K/uL Anisocytosis Present Rouleaux 1+ Sodium 138 (136-145) mmol/L Potassium 4.8 (3.5-5.1) mmol/L Chloride 106 (98-107) mmol/L Carbon Dioxide 14 L (21-32) mmol/L Anion Gap 18 H (3-11) BUN 111 H (6-23) mg/dl Creatinine 7.18 H* (0.6-1.4) mg/dl Est Cr Clr Drug Dosing 12.9 ml/min Est GFR ( Amer) 8.2 ml/min Est GFR (Non-Af Amer) 7.1 ml/min BUN/Creatinine Ratio 15.5 (10-20) Glucose 66 L (70-99(Fasting)) mg/dl POC Glucose 94 (70-99) mg/dl Estimat Average Glucose mg/dl Hemoglobin A1c (4.5-5.6) % Lactate (0.4-2.0) mmol/L Calcium 9.2 (8.5-10.1) mg/dl Phosphorus (2.5-4.9) mg/dl Magnesium (1.7-2.4) mg/dl Iron (35-175) mcg/dl TIBC (250-450) mcg/dl Unsaturated IBC (155-355) mcg/dl Transferrin % Sat (20-50) % Ferritin (8-388) ng/ml Total Bilirubin 0.4 (0.2-1.0) mg/dl AST 22 (13-39) U/L ALT 20 (7-52) U/L Alkaline Phosphatase 61 (34-104) U/L Troponin I (0-0.04) ng/ml B-Natriuretic Peptide (0-100) pg/ml Total Protein 7.6 (6.0-8.3) gm/dl Albumin 3.3 L (3.4-5.0) gm/dl Globulin 4.3 H (2.5-4.0) gm/dl Albumin/Globulin Ratio 0.8 L (0.9-2) Lipase 23 (11-82) U/L Vitamin B12 (180-914) pg/ml Folate (>5.38) ng/ml Nasal Screen MRSA (PCR) (Negative) Influ A Molecular Assay (Negative) Influ B Molecular Assay (Negative) Blood Type Antibody Screen Crossmatch 11/12/21 11/12/21 11/12/21 Range/Units 21:22 19:46 18:30 WBC (4.8-10.8) K/uL RBC (4.7-6.1) M/uL Hgb (14.0-18.0) g/dL Hct (42-52) % MCV (80-100) fL MCH (25-34) pg MCHC (32-36) g/dL RDW Std Deviation (36.4-46.3) fL RDW Coeff of Millie (11.5-14.5) % Plt Count (130-400) K/uL MPV (7.4-10.4) fL Immature Gran % (Auto) % Neut % (Auto) % Lymph % (Auto) % [place] % (Auto) % Eos % (Auto) % Baso % (Auto) % Neut # (Auto) (1.4-6.5) K/uL Lymph # (Auto) (1.2-3.4) K/uL [place] # (Auto) (0.11-0.59) K/uL Eos # (Auto) (0-0.5) K/uL Baso # (Auto) (0-0.2) K/uL Immature Gran # (Auto) (0.00-0.02) K/uL Anisocytosis Rouleaux Sodium (136-145) mmol/L Potassium (3.5-5.1) mmol/L Chloride (98-107) mmol/L Carbon Dioxide (21-32) mmol/L Anion Gap (3-11) BUN (6-23) mg/dl Creatinine (0.6-1.4) mg/dl Est Cr Clr Drug Dosing ml/min Est GFR ( Amer) ml/min Est GFR (Non-Af Amer) ml/min BUN/Creatinine Ratio (10-20) Glucose (70-99(Fasting)) mg/dl POC Glucose 75 77 (70-99) mg/dl Estimat Average Glucose mg/dl Hemoglobin A1c (4.5-5.6) % Lactate (0.4-2.0) mmol/L Calcium (8.5-10.1) mg/dl Phosphorus (2.5-4.9) mg/dl Magnesium (1.7-2.4) mg/dl Iron (35-175) mcg/dl TIBC (250-450) mcg/dl Unsaturated IBC (155-355) mcg/dl Transferrin % Sat (20-50) % Ferritin (8-388) ng/ml Total Bilirubin (0.2-1.0) mg/dl AST (13-39) U/L ALT (7-52) U/L Alkaline Phosphatase (34-104) U/L Troponin I (0-0.04) ng/ml B-Natriuretic Peptide (0-100) pg/ml Total Protein (6.0-8.3) gm/dl Albumin (3.4-5.0) gm/dl Globulin (2.5-4.0) gm/dl Albumin/Globulin Ratio (0.9-2) Lipase (11-82) U/L Vitamin B12 (180-914) pg/ml Folate (>5.38) ng/ml Nasal Screen MRSA (PCR) (Negative) Influ A Molecular Assay (Negative) Influ B Molecular Assay (Negative) Blood Type O Positive Antibody Screen NEGATIVE Crossmatch See Detail 11/12/21 11/12/21 11/12/21 Range/Units 18:30 16:06 15:00 WBC (4.8-10.8) K/uL RBC (4.7-6.1) M/uL Hgb (14.0-18.0) g/dL Hct (42-52) % MCV (80-100) fL MCH (25-34) pg MCHC (32-36) g/dL RDW Std Deviation (36.4-46.3) fL RDW Coeff of Millie (11.5-14.5) % Plt Count (130-400) K/uL MPV (7.4-10.4) fL Immature Gran % (Auto) % Neut % (Auto) % Lymph % (Auto) % [place] % (Auto) % Eos % (Auto) % Baso % (Auto) % Neut # (Auto) (1.4-6.5) K/uL Lymph # (Auto) (1.2-3.4) K/uL [place] # (Auto) (0.11-0.59) K/uL Eos # (Auto) (0-0.5) K/uL Baso # (Auto) (0-0.2) K/uL Immature Gran # (Auto) (0.00-0.02) K/uL Anisocytosis Rouleaux Sodium (136-145) mmol/L Potassium (3.5-5.1) mmol/L Chloride (98-107) mmol/L Carbon Dioxide (21-32) mmol/L Anion Gap (3-11) BUN (6-23) mg/dl Creatinine (0.6-1.4) mg/dl Est Cr Clr Drug Dosing ml/min Est GFR ( Amer) ml/min Est GFR (Non-Af Amer) ml/min BUN/Creatinine Ratio (10-20) Glucose (70-99(Fasting)) mg/dl POC Glucose 74 (70-99) mg/dl Estimat Average Glucose mg/dl Hemoglobin A1c (4.5-5.6) % Lactate (0.4-2.0) mmol/L Calcium (8.5-10.1) mg/dl Phosphorus (2.5-4.9) mg/dl Magnesium (1.7-2.4) mg/dl Iron (35-175) mcg/dl TIBC (250-450) mcg/dl Unsaturated IBC (155-355) mcg/dl Transferrin % Sat (20-50) % Ferritin (8-388) ng/ml Total Bilirubin (0.2-1.0) mg/dl AST (13-39) U/L ALT (7-52) U/L Alkaline Phosphatase (34-104) U/L Troponin I 0.05 H* (0-0.04) ng/ml B-Natriuretic Peptide (0-100) pg/ml Total Protein (6.0-8.3) gm/dl Albumin (3.4-5.0) gm/dl Globulin (2.5-4.0) gm/dl Albumin/Globulin Ratio (0.9-2) Lipase (11-82) U/L Vitamin B12 (180-914) pg/ml Folate (>5.38) ng/ml Nasal Screen MRSA (PCR) Negative (Negative) Influ A Molecular Assay (Negative) Influ B Molecular Assay (Negative) Blood Type Antibody Screen Crossmatch 11/12/21 11/12/21 11/12/21 Range/Units 14:29 13:28 11:48 WBC (4.8-10.8) K/uL RBC (4.7-6.1) M/uL Hgb (14.0-18.0) g/dL Hct (42-52) % MCV (80-100) fL MCH (25-34) pg MCHC (32-36) g/dL RDW Std Deviation (36.4-46.3) fL RDW Coeff of Millie (11.5-14.5) % Plt Count (130-400) K/uL MPV (7.4-10.4) fL Immature Gran % (Auto) % Neut % (Auto) % Lymph % (Auto) % [place] % (Auto) % Eos % (Auto) % Baso % (Auto) % Neut # (Auto) (1.4-6.5) K/uL Lymph # (Auto) (1.2-3.4) K/uL [place] # (Auto) (0.11-0.59) K/uL Eos # (Auto) (0-0.5) K/uL Baso # (Auto) (0-0.2) K/uL Immature Gran # (Auto) (0.00-0.02) K/uL Anisocytosis Rouleaux Sodium (136-145) mmol/L Potassium (3.5-5.1) mmol/L Chloride (98-107) mmol/L Carbon Dioxide (21-32) mmol/L Anion Gap (3-11) BUN (6-23) mg/dl Creatinine (0.6-1.4) mg/dl Est Cr Clr Drug Dosing ml/min Est GFR ( Amer) ml/min Est GFR (Non-Af Amer) ml/min BUN/Creatinine Ratio (10-20) Glucose (70-99(Fasting)) mg/dl POC Glucose 71 (70-99) mg/dl Estimat Average Glucose mg/dl Hemoglobin A1c (4.5-5.6) % Lactate 0.6 (0.4-2.0) mmol/L Calcium (8.5-10.1) mg/dl Phosphorus (2.5-4.9) mg/dl Magnesium (1.7-2.4) mg/dl Iron (35-175) mcg/dl TIBC (250-450) mcg/dl Unsaturated IBC (155-355) mcg/dl Transferrin % Sat (20-50) % Ferritin (8-388) ng/ml Total Bilirubin (0.2-1.0) mg/dl AST (13-39) U/L ALT (7-52) U/L Alkaline Phosphatase (34-104) U/L Troponin I (0-0.04) ng/ml B-Natriuretic Peptide 777 H (0-100) pg/ml Total Protein (6.0-8.3) gm/dl Albumin (3.4-5.0) gm/dl Globulin (2.5-4.0) gm/dl Albumin/Globulin Ratio (0.9-2) Lipase (11-82) U/L Vitamin B12 (180-914) pg/ml Folate (>5.38) ng/ml Nasal Screen MRSA (PCR) (Negative) Influ A Molecular Assay (Negative) Influ B Molecular Assay (Negative) Blood Type Antibody Screen Crossmatch 11/12/21 Range/Units 11:15 WBC (4.8-10.8) K/uL RBC (4.7-6.1) M/uL Hgb (14.0-18.0) g/dL Hct (42-52) % MCV (80-100) fL MCH (25-34) pg MCHC (32-36) g/dL RDW Std Deviation (36.4-46.3) fL RDW Coeff of Millie (11.5-14.5) % Plt Count (130-400) K/uL MPV (7.4-10.4) fL Immature Gran % (Auto) % Neut % (Auto) % Lymph % (Auto) % [place] % (Auto) % Eos % (Auto) % Baso % (Auto) % Neut # (Auto) (1.4-6.5) K/uL Lymph # (Auto) (1.2-3.4) K/uL [place] # (Auto) (0.11-0.59) K/uL Eos # (Auto) (0-0.5) K/uL Baso # (Auto) (0-0.2) K/uL Immature Gran # (Auto) (0.00-0.02) K/uL Anisocytosis Rouleaux Sodium (136-145) mmol/L Potassium (3.5-5.1) mmol/L Chloride (98-107) mmol/L Carbon Dioxide (21-32) mmol/L Anion Gap (3-11) BUN (6-23) mg/dl Creatinine (0.6-1.4) mg/dl Est Cr Clr Drug Dosing ml/min Est GFR ( Amer) ml/min Est GFR (Non-Af Amer) ml/min BUN/Creatinine Ratio (10-20) Glucose (70-99(Fasting)) mg/dl POC Glucose (70-99) mg/dl Estimat Average Glucose mg/dl Hemoglobin A1c (4.5-5.6) % Lactate (0.4-2.0) mmol/L Calcium (8.5-10.1) mg/dl Phosphorus (2.5-4.9) mg/dl Magnesium (1.7-2.4) mg/dl Iron (35-175) mcg/dl TIBC (250-450) mcg/dl Unsaturated IBC (155-355) mcg/dl Transferrin % Sat (20-50) % Ferritin (8-388) ng/ml Total Bilirubin (0.2-1.0) mg/dl AST (13-39) U/L ALT (7-52) U/L Alkaline Phosphatase (34-104) U/L Troponin I (0-0.04) ng/ml B-Natriuretic Peptide (0-100) pg/ml Total Protein (6.0-8.3) gm/dl Albumin (3.4-5.0) gm/dl Globulin (2.5-4.0) gm/dl Albumin/Globulin Ratio (0.9-2) Lipase (11-82) U/L Vitamin B12 (180-914) pg/ml Folate (>5.38) ng/ml Nasal Screen MRSA (PCR) (Negative) Influ A Molecular Assay Negative (Negative) Influ B Molecular Assay Negative (Negative) Blood Type Antibody Screen Crossmatch Diagnostic Findings Patient:CARLA BOLES Admit Date:11/12/21 MR#:[id number] Address1:[address] [place] [address] Acct ID:[id number] Address2: Date:1950 [facility] Zip:[place] [address] Age:71 Location: Sex: Room/Bed:[facility] Att Phy:Jaun Shrestha MD Diagnosis:SEPSIS, OSTEO, EARLENE, ANEMIA Eliza Phy:Pedro Jon DO Service Date:11/12/21 Fam Phy: Interpreting Phy:Pj ChristiansonAdmit Phy:Jaun Shrestha MD Ordering Phy:Johanny Agudelo cc: ~ MR foot LT w/o con, MR ankle LT wo con HISTORY: 71 years-old Male osteomyelitis Patient presents with a diabetic soft tissue ulcer of the lateral forefoot. COMPARISON: Left foot radiographs 11/12/2021 TECHNIQUE: Multiplanar multisequence MRI of the left foot and ankle was obtained without the use of IV contrast. FINDINGS: FOOT: 2.6 x 3.1 cm soft tissue ulcer of the lateral forefoot is noted with moderate cellulitis changes. No abscess. The ulcer is superficial to the fifth metatarsal head and neck and fifth metatarsal phalangeal joint. There is extensive marrow edema involving the fifth metatarsal head and neck and distal diaphyseal distribution. Decreased T1 marrow signal is noted within these distributions with associated cortical indistinctness noted both medially and laterally. Similar-appearing marrow changes are also noted within the fifth proximal, middle and distal phalanges with cortical erosions. Pathologic fracture involves the base of the fifth proximal phalanx. Soft tissue gas within the forefoot surrounds the fourth and fifth metatarsophalangeal joints. No cortical erosions or significant marrow edema of the fourth digit. There is mild multifocal osteoarthritis. Cortical erosions with periarticular debris within the tarsal metatarsal joints suggests early changes of Charcot neuropathy. Diffuse muscle atrophy with edema. Tenosynovitis of the extensor digitorum. ANKLE: Diffuse cellulitis with chronic muscular denervation changes. Suggested Charcot neuropathy of the midfoot. 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 No acute fracture, dislocation or evidence of acute osteomyelitis. Moderate sized enthesophytes of the calcaneus. Thickening of the medial plantar cord compatible with chronic plantar fasciitis. Mild tibiotalar osteoarthritis. IMPRESSION: 1. Soft tissue ulcer of the lateral forefoot with cellulitis. No abscess. 2. Osteomyelitis of the fifth metatarsal head, proximal, middle and distal phalanges. 3. Soft tissue gas of the forefoot may be secondary to direct extension from the soft tissue ulcer versus necrotizing fasciitis. 4. Tenosynovitis of the extensor digitorum, possibly infectious. 5. 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 6. Chronic denervation changes with suggested Charcot neuropathy of the midfoot. US arterial duplex LE LT CLINICAL HISTORY: non healing wound TECHNIQUE: Real-time grayscale and color and spectral Doppler ultrasound imaging of the left lower extremity arteries was performed. Measurements calculated based on NASCET criteria. COMPARISON: None available at the time of this dictation. FINDINGS: LEFT: Common femoral artery: Triphasic waveforms. Peak systolic velocity (PSV) 91 cm/s. Deep femoral artery: Triphasic waveforms. PSV 65 cm/s. Superficial femoral artery: Triphasic waveforms. PSV 133 cm/s. Popliteal artery: Triphasic waveforms. PSV 135 cm/s. Anterior tibial artery: Biphasic waveforms. PSV 116 cm/s. The distal anterior tibial artery is monophasic, PSV 10.9. Posterior tibial artery: Biphasic waveforms. PSV 80 cm/s. Peroneal artery: Biphasic waveforms. PSV 57 cm/s. Dorsalis pedis: Monophasic waveforms. PSV 50 cm/s. Reference ranges: Normal Ankle/Brachial Index (CARLOS ENRIQUE) 1.0-1.4; 0.91-0.99 borderline; < or = 0.9 abnormal (0.7-0.89 mild, 0.51-0.69 moderate, < or = 0.5 severe peripheral art erial disease). Normal Toe/Brachial Index (TBI) > or = 0.6; < 0.6 abnormal (0.34-0.59 mild, 0.12-0.34 moderate, < or = 0.11 severe peripheral arterial disease). IMPRESSION: Hemodynamically significant stenosis is seen most pronounced in the distal anterior tibial artery and dorsalis pedis artery.
--- NOTE | 2021-11-13 13:13 | Pharmacy Report ---
Pharmacy Glycemic Short Note 2 - Date of Service November 13, 2021 - Glycemic Short BSG Results (Last 24 hours): 11/12/21 11/12/21 11/12/21 13:28 16:06 19:46 Glucose POC Glucose 71 74 77 11/12/21 11/13/21 11/13/21 21:22 01:25 02:11 Glucose 89 POC Glucose 75 94 11/13/21 11/13/21 07:16 11:26 Glucose POC Glucose 86 92 OUTPATIENT ANTIDIABETIC REGIMEN: * Lantus 50 units SC PM * HbA1c: 7.8% (11/13/21) ASSESSMENT: 11/13 * BSGs have been very tightly controlled with no insulin so far this admission, ranging 71-94 mg/dL * Patient is now accepting of HD if needed, per nephrology notes. Will follow. * First documented meal at lunchtime (40 g of carbs), will initiate Lantus scale this evening to provide basal if needed now that patient is eating * Continues on daptomycin/cefepime for treatment of diabetic foot infection/osteomyelitis of left foot * Orthopedics/vascular surgery consulted, patient likely to require significant debridement 11/12 * 71 yo admitted secondary to osteomyelitis. Pharmacy has been consulted to assist with inpatient glycemic management. * Ordered a type 2 diabetic diet. Currently on Daptomycin and Cefepime. SCr at 7.18 mg/dL (patient is ESRD but refuses HD). * Did take 50 units of Lantus evening prior to admission. * Will hold Lantus for now given BSGs. * Start Novolog only. Target BSG of 110-140 mg/dL to help with infection and promote wound healing. PLAN FOR INPATIENT GLYCEMIC CONTROL: * Basal insulin * Lantus 0-20 units SC HS (see EHR for details) * Bolus insulin * NovoLog per scale ACHS or Q6hrs while NPO * Goal Range: Low 110 mg/dL - High 140 mg/dL * Correction Factor: 30 mg/dL/unit * Nutritional / Prandial insulin per carb ratio of 1 unit per 10 grams CHO consumed
[2021-11-13 14:23] LABS: Hematocrit (blood only) 22.3 % (42-52); Hemoglobin 7.3 g/dL (14.0-18.0)
[2021-11-13] MEDS ORDERED: SODIUM CHLORIDE 0.9% 250 ML IV PRN (16:49)
[2021-11-13] MEDS ORDERED: FUROSEMIDE INJ 20 MG/2 ML VIAL IV SCH (17:00)
--- NOTE | 2021-11-13 17:06 | Hospitalist Progress Note ---
Date of Service November 13, 2021 Assessment & Plan (1) Osteomyelitis: Plan: 71 yo M w/ PMH of CKD stage IV, Uncontrolled DM w/ PDN, HTN, SUKHWINDER, and HLD presented 11/12 to our ED at referral of PCP for evaluation of SOB. Pt's main concern is SOB which is there for 5 days [employer], patient not aware of his Left foot infection complicated with necrotic tissue. Pt does have PDN upto b/l knees. He is being managed for the following: (1) Osteomyelitis: Plan: Admitted to telemetry Patient presenting by referral of PCP for evaluation of shortness of breath, chills, rigors In the ED, patient is afebrile, hemodynamically stable. On exam, patient is found to have necrotic tissue involving the left fourth and fifth toe and plantar surface of the left foot. X-ray concerning for osteomyelitis. WBC 25K, no other signs of sepsis at admission S/p Dapto and cefepime in the ED, continue with both L LE Doppler negative for DVT LLE arterial duplex positive for hemodynamically significant stenosis in the distal anterior tibial artery and dorsalis pedis artery. MRI foot and ankle: Reviewed Follow wound and blood cultures, ID consult, vascular consult. Patient afebrile, blood pressure holding up. Orthopedic evaluated, appreciate recommendations. Plan for surgery after vascular evaluation. (2) Acute kidney injury: (3) Chronic renal insufficiency, stage IV (severe): Plan: Nonoliguric Creatinine 7.18 (baseline ~ 4.0) at presentation Likely due to infection in combination with ARB use Hold losartan and furosemide. IV fluids per nephrology. Nephrology evaluated, appreciate recommendation (4) Hypoxia: Plan: In the ED, documented to be 85% on room air and was placed on 4 L of oxygen via nasal cannula Admitting CXR clear Chest clear to auscultation Anemia maybe contributing, keep hemoglobin above 8, 1 unit PRBC transfusion today. Continue to monitor, wean O2 as able (5) Anemia: Plan: Hgb 7.5 (baseline ~ 10.0) CKD likely contributing Status post 1 unit yesterday, hemoglobin 7.3 today, will transfuse 1 more unit. Ferritin 190, likely will need iron supplementation, will defer to nephrology. Replacing folic acid and cyanocobalamin. FOBT pending. Follow-up hemoglobin 12 hourly or as needed, keep hemoglobin above 8. (6) Diabetes mellitus, type 2: Plan: Hgb A1c 8.0 01/2021 Hypoglycemic on admission labs, glucose 66 Hold Lantus for now Pharmacy glycemic consult, updated A1c (7) Hypothyroidism: Plan: Continue levothyroxine (8) Pulmonary arterial hypertension: Plan: Appears euvolemic, hold furosemide due to EARLENE (9) DVT prophylaxis: Plan: SCDs for now due to anemia Admission and Anticipated Discharge Date Admission Date: November 12, 2021 Subjective Patient seen and examined at bedside as a follow-up of left foot osteomyelitis, acute on chronic kidney disease stage IV and hypoxia. Patient lying in bed, on 3 L nasal cannula oxygen, NAD, no new acute events overnight per RN. Patient was n.p.o. in the morning, later on diet resume for surgery consideration only after vascular evaluation. Patient reported feeling hungry in the morning at bedside exam. No bowel movement per RN. Patient denies any fever/headache/chills/chest pain/palpitations or pedal pain/other review of symptoms. Physical Exam Physical Exam: GENERAL: Alert and oriented x3. NAD, on RA. HEENT: No pallor, no icterus. Pupils equal, round and reactive to light. Oral mucosa moist. NECK: No JVD, no neck masses. HEART: S1 and S2 heard. Regular rate and rhythm. No murmur, no gallop. RESPIRATORY SYSTEM: Normal AP diameter. No accessory muscle use. No wheezing, no crackles. ABDOMEN: Soft, bowel sounds present, nontender, no distention. CENTRAL NERVOUS SYSTEM: No facial droop. Speech is clear. Obeys simple commands. Moves extremities. EXTREMITIES: LLE 2+ edema, erythematous/nontender (d/t PDN)/foul smelling cellulitis of left foot with necrotic tissues noted over left 4th and 5th digit. RLE trace edema w/ amputated Great toe. No sensation BLE upto knees. Chronic skin changes noted over RLE. Non compressible pulses over LLE. --> clean dressing noted over LLE foot without soakage. Foul-smelling while in room. Results & Data Results & Data ([facility]) Vital Signs (Past 12 Hours) Vital Signs Temp Pulse Pulse Resp BP Pulse Ox Pulse Ox 11/13/21 16:12 36.7 C 81 22 125/68 94 11/13/21 14:39 92 11/13/21 14:17 75 11/13/21 11:29 36.7 C 82 19 108/60 94 11/13/21 08:00 77 11/13/21 07:19 36.8 C 90 19 140/76 95 (1) Osteomyelitis Laterality: unspecified laterality Osteomyelitis location: foot Osteomyelitis type: unspecified type Qualified Code(s): M86.9 - Osteomyelitis, unspecified
[2021-11-13] MEDS: CEFEPIME 2,000 MG in SYRINGE 0 ML IV SCH (17:47)
[2021-11-13] MEDS: INSULIN GLARGINE SOLOSTAR 100 UNITS/ML 3 ML PEN SC SCH (21:15)
[2021-11-13] MEDS: LATANOPROST 0.005% OP SOLN 2.5 ML BTL OP SCH (21:16)
[2021-11-13 22:38] LABS: Hematocrit (blood only) 25.4 % (42-52); Hemoglobin 8.2 g/dL (14.0-18.0)
[2021-11-13 22:41] LABS: Appearance Urine Cloudy (Clear); Bacteria Urine Automated Negative (Negative); Bilirubin Urine Negative (Negative); Blood Urine Negative (Negative); Color Urine Yellow; Epithelial Cell Urine Auto >30 /lpf (0-5); Glucose Urine UA Negative (Negative); Ketones Urine Negative (Negative); Leukocyte Esterase Urine Negative (Negative); Nitrite Urine Negative (Negative); Protein Urine 1+ (Negative); Specific Gravity Urine 1.016 (1.000-1.030); Urobilinogen Urine Negative (Negative)
[2021-11-13 22:50] LABS: RBC Urine Automated 0-4 /hpf (0-4)
[2021-11-14] MEDS: SODIUM BICARBONATE 8.4% 75 MEQ in SODIUM CHLORIDE 0.45 % 1,000 ML IV SCH (01:15)
[2021-11-14] MEDS: LEVOTHYROXINE SODIUM 50 MCG TABLET PO SCH (05:27)
[2021-11-14 06:30] LABS: Hematocrit (blood only) 25.9 % (42-52); Hemoglobin 8.3 g/dL (14.0-18.0); Mean Corpuscular Hemoglobin 28.2 pg (25-34); Mean Corpuscular Volume 88.1 fL (80-100); Mean Platelet Volume 9.8 fL (7.4-10.4); Nucleated RBC # (auto) 0.02 K/uL (0-0); Nucleated RBC % (auto) 0.1 %; Platelet Count 308 K/uL (130-400); RDW Coefficient of Variation 16.7 % (11.5-14.5); RDW Standard Deviation 53.9 fL (36.4-46.3); Red Blood Count 2.94 M/uL (4.7-6.1); White Blood Count 18.75 K/uL (4.8-10.8)
[2021-11-14 06:57] LABS: Calcium 8.5 mg/dl (8.5-10.1); Creatinine Clr Calc Pharmacy 13.7 ml/min; Est GFR (African American) 9.1 ml/min; Est GFR (Non-African American) 7.8 ml/min; Potassium 4.4 mmol/L (3.5-5.1)
[2021-11-14 07:10] LABS: BUN Creatinine Ratio 19.9 (10-20)
[2021-11-14] MEDS: amLODIPine BESYLATE 5 MG TAB PO SCH (08:12)
[2021-11-14] MEDS: CALCITRIOL 0.25 MCG CAPSULE PO SCH ×2 (08:12→21:15)
[2021-11-14] MEDS: BRIMONIDINE TARTRATE-P 0.15% 5 ML BTL OPB SCH ×2 (08:12→21:14)
--- NOTE | 2021-11-14 08:12 | Nephrology Progress Note ---
Date of Service November 14, 2021 Assessment & Plan (1) Acute kidney injury: Plan: * EARLENE due to infection/inflammation in the setting of ARB therapy * Losartan has been stopped * Urinalysis ordered - pending * 11/12/21 renal US: R kidney 10.8 cm, L kidney 11.7 cm. No hydronephrosis, calculi or mass * Patient has AGA related to EARLENE/CKD, infection. Continue NaHCO3 infusion * Patient is now oliguric, acidemic and progressively azotemic. His blood cultures are NGTD and he has been on broad spectrum antibiotic therapy for ~ 48 hours. Will ask Vascular Surgery to place TCC today or tomorrow for initiation of HD. Discussed w/ patient. He is agreeable to starting HD * Monitor PRP (2) ESRD (end stage renal disease): Plan: * Baseline Cr 4.2 - 4.4 w/ EGFR 11 - 13 cc/min. Renal impairment due to combination AODM, vascular disease, obesity * Previously declined AVF creation of dialysis preparation due to fecal incontinence (3) Anemia: Plan: * h/o CKD associated anemia on Aranesp therapy * Given necrotic foot ulcer, recommend blood transfusion. Patient likely will not respond to ROBERTH due to inflammation * Transfused 1 U PRBC 11/12/21 (4) Diabetic foot ulcer associated with type 2 diabetes mellitus: Plan: * Antibiotic therapy as per primary service. Recommend consultation w/ Pharmacy to dose appropriately for ESRD * 11/06 CARLOS ENRIUQE: Hemodynamically significant stenosis is seen most pronounced in the distal anterior tibial artery and dorsalis pedis artery * Await surgical evaluation. Patient may require BKA (5) Fecal incontinence: Plan: * Await GI recommendations Admission and Anticipated Discharge Date Admission Date: November 12, 2021 Subjective Mr. Arias was evaluated in his hospital room this morning. He is now oliguric and 2.3L volume positive. He is breathing comfortably flat in bed on O2 at 2L/min NC. He has foul smelling drainage from his L foot ulcers Review of Systems Constitutional: + fever Eyes: no problem reported Ear, Nose, Mouth, Throat: no problem reported Respiratory: no cough and no dyspnea Cardiovascular: + edema; no chest pain Gastrointestinal: + diarrhea/loose stools; no abdominal pain Genitourinary: no dysuria, no urinary hesitancy or no hematuria Integumentary: + skin ulcer Neurologic: no confusion Physical Exam Constitutional: + morbidly obese Eyes: PERRL, conjunctivae normal, anicteric sclerae ENMT: external ear and nose normal, oropharynx normal Neck: trachea midline, no thyromegaly Respiratory: normal respiratory effort, lungs clear to auscultation Cardiovascular: Rate/Rhythm: regular rate and regular rhythm Extremities: + edema Gastrointestinal (Abdomen): normal bowel sounds, soft, nontender, no hepatosplenomegaly Neurologic: awake; not confused Results & Data ([facility]) Vital Signs (Past 12 Hours) Vital Signs Temp Pulse Pulse Resp BP BP Pulse Ox 11/14/21 03:47 36.8 C 78 18 148/74 H 99 11/14/21 00:25 75 11/13/21 23:58 36.4 C L 72 18 118/66 95 11/13/21 20:36 36.8 C 81 18 140/70 96 Laboratory Results Laboratory Tests 11/14/21 11/14/21 06:02 06:02 WBC 18.75 H Hgb 8.3 L Hct 25.9 L Plt Count 308 Sodium 139 Potassium 4.4 Chloride 107 Carbon Dioxide 15 L BUN 133 H Creatinine 6.59 H* Glucose 136 H PG Care Time/CCT Total # of Minutes Spent Total Time Spent with Patient: Total time spent is greater than 50% in coordination of care (as documented) at patient's floor/unit and/or counseling patient: Coding Level of Care Code 53930 Subseq Hosp Care Lvl 3 Diagnoses Acute kidney injury N17.9 ESRD (end stage renal disease) N18.6 Anemia D64.9 Diabetic foot ulcer associated with type 2 diabetes mellitus E11.621; L97.509 Fecal incontinence R15.9
[2021-11-14] MEDS: METOPROLOL SUCC 50MG EXT REL TAB PO SCH (08:13)
[2021-11-14] MEDS: allopurinoL 100 MG TAB PO SCH (08:13)
[2021-11-14] MEDS: ASPIRIN 81 MG ECTAB PO SCH (08:13)
[2021-11-14] MEDS: CYANOCOBALAMIN (B-12) 100 MCG TABLET PO SCH (08:13)
[2021-11-14] MEDS: FOLIC ACID 1 MG TAB PO SCH (08:14)
[2021-11-14] MEDS: cloNIDine HCL 0.1 MG TAB PO SCH ×2 (08:14→21:15)
[2021-11-14] MEDS: INSULIN ASPART PER UNIT SC SCH ×4 (08:17→21:21)
[2021-11-14] MEDS: SODIUM BICARBONATE 8.4% 150 MEQ in WATER, STERILE 1,000 ML IV SCH (10:07)
--- NOTE | 2021-11-14 12:44 | Post Operative Brief Note ---
Immediate Post Op Note v1 Date of Surgery November 14, 2021 Pre & Post Diagnosis Operation Date: 11/15/21 07:55 <No data on this case meets the specified criteria> I identified the patient and participated in the time-out.: Yes Procedure Operation Date: 11/15/21 07:55 <No data on this case meets the specified criteria> Surgeon Patricio Hdez MD Lumber Trimmer MD Con LivingstonMinarchick,PAC Estimated Blood Loss 15 Findings Consistent with Post-Op Diagnosis Anesthesia Type MAC Complications none Disposition Accompanied Patient To Recovery: No Disposition: Recovery Room
--- NOTE | 2021-11-14 12:59 | Hospitalist Progress Note ---
Date of Service November 14, 2021 Assessment & Plan (1) Osteomyelitis: Plan: 71 yo M w/ PMH of CKD stage IV, uncontrolled diabetes mellitus with peripheral neuropathy, hypertension, SUKHWINDER, and HLD presented 11/12 to our ED at referral of PCP for evaluation of SOB. Patient main concern was shortness of breath which was present for 5 days prior to admission however he was not aware of his left foot infection complicated with necrotic tissue. Pt does have peripheral neuro sabina and states no sensation below his knees. He is being managed for the following: (1) Diabetic foot ulcer with cellulitis with acute osteomyelitis of left foot with left foot wound clx growing Citrobacter koseri and GNB - Afebrile, hemodynamically stable, exam with necrotic tissue involving the left fourth and fifth toe and plantar surface of the left foot. - WBC 25K on admission and trending down, no signs or symptoms of sepsis - LLE Doppler negative for DVT - LLE arterial duplex positive for hemodynamically significant stenosis in the distal anterior tibial artery and dorsalis pedis artery. - MRI foot and ankle 11/13 shows soft tissues ulcer of lateral forefoot with cellulitis with OM of fifth metatarsal head and phalanges with soft tissue gas of forefoot ?secondary to direct extension from soft tissue ulcer vs necrotizing fascitis; tenosynovitis of extensor digitorum - Currently on IV Dapto and cefepime pending final clx results and ID evaluation - Seen by ortho- recommendations noted- plan for surgery after vascular evaluation given his PAD (2) Peripheral artery disease LLE- LLE arterial duplex with hemodynamically sign ificant stenosis of distal ant tibial artery and dorsalis pedis artery; Vascular evaluation pending (3) EARLENE on Chronic renal insufficiency, stage IV (severe), now ESRD - Now oliguric, azotemic and acidemic and ephro planning for dialysis this admission, plan for TCC tomorrow per vascular surgery. On IV sodium bicarb and IVF per nephro - Creatinine 7.18 (baseline ~ 4.0) at presentation, now at 6.59 - Losartan and furosemide on hold. Hold nephrotoxics, ABx dosing per pharmacy based on renal function (4) Hypoxia: CXR and chest clear, stable on 2 L of NC, wean down as tolerated, continue incentive spirometer. S/p 2 U of PRBC transfusion. Anemia and deconditioning likely contributing. (5) Anemia of CKD: Hgb 7.5 on presentation (baseline ~ 10.0) and s/p 2 U of PRBC, now Hb >8. Check intermittently, transfuse as needed. Aranesp therapy per nephro. FOBT pending (6) Diabetes mellitus, type 2: Hgb A1c 8.0 01/2021; diabetic management per pharmacy (7) Hypothyroidism: Continue levothyroxine (8) Pulmonary arterial hypertension: Appears euvolemic, hold furosemide due to EARLENE (9) Hypertension- stable, continue norvasc and toprol with hold parameters DVT prophylaxis: SCDs for now due to anemia requiring transfusion Dispo: Medsurg. Patient will need surgery for LLE ulcer/OM, awaiting vascular evaluation. On IV antibiotics. Admission and Anticipated Discharge Date Admission Date: November 12, 2021 Subjective Seen and examined at bedside. He is disappointed that he does not know all det ails about what is going on with his care, he is especially frustrated that he was told he is going to have surgery tomorrow by RN overnight and it did not come from the doctor. His shortness of breath on admission is improved and he is on 2 L NC but he still feels winded with exertion and activities. No fever, chills, chest pain, shortness of breath, nausea, vomiting. Appetite variable which is not new. States having bowel movement. Wound was dressed yesterday. Physical Exam Physical Exam: General: Lying comfortably in bed, not in distress, on 2 L NC HEENT: EOMI, PJ, MMM Chest: Clear breath sounds bilaterally, no wheezes or crackles CVS: Regular rate and rhythm, normal heart sounds, no murmur Abdomen: Soft, non tender, not distended, normal bowel sounds Neuro: Awake, alert, oriented, conversing well, non focal Extremities: Feet covered with dressing, malodorous Results & Data Results & Data ([facility]) Vital Signs (Past 12 Hours) Vital Signs Temp Pulse Resp BP Pulse Ox 11/14/21 08:20 36.1 C L 85 19 131/63 96 11/14/21 03:47 36.8 C 78 18 148/74 H 99 Laboratory Results Short CBC 11/13/21 11/13/21 11/14/21 Range/Units 14:02 22:26 06:02 WBC 18.75 H (4.8-10.8) K/uL Hgb 7.3 L 8.2 L 8.3 L (14.0-18.0) g/dL Hct 22.3 L 25.4 L 25.9 L (42-52) % Plt Count 308 (130-400) K/uL BMP 11/14/21 06:02 Sodium 139 Potassium 4.4 Chloride 107 Carbon Dioxide 15 L BUN 133 H Creatinine 6.59 H* Glucose 136 H Calcium 8.5 Urine 11/13/21 Range/Units 21:56 Urine Color Yellow Urine Appearance Cloudy A (Clear) Urine pH 5.0 (4.5-7.5) Ur Specific [place] 1.016 (1.000-1.030) Urine Protein 1+ H (Negative) Urine Glucose (UA) Negative (Negative) Medications Administered Current Inpatient Medications Acetaminophen (Acetaminophen 325 Mg Tab) 650 mg PO Q4H PRN PRN Reason: Pain or Fever Stop: 12/12/21 14:38 Allopurinol (Allopurinol 100 Mg Tab) 50 mg PO DAILY BERTHA Stop: 12/13/21 08:59 Last Admin: 11/14/21 08:13 Dose: 50 mg Documented by: Amlodipine Besylate (Amlodipine Besylate 5 Mg Tab) 5 mg PO DAILY BERTHA Stop: 12/13/21 08:59 Last Admin: 11/14/21 08:12 Dose: 5 mg Documented by: Aspirin (Aspirin 81 Mg Ectab) 81 mg PO DAILY BERTHA Stop: 12/13/21 08:59 Last Admin: 11/14/21 08:13 Dose: 81 mg Documented by: Atorvastatin Calcium (Atorvastatin 40 Mg Tab) 40 mg PO DAILY BERTHA Stop: 12/13/21 08:59 Brimonidine Tartrate (Brimonidine Tartrate-P 0.15% 5 Ml Btl) 1 drops OPB BID BERTHA Stop: 12/12/21 20:59 Last Admin: 11/14/21 08:12 Dose: 1 drops Documented by: Calcitriol (Calcitriol 0.25 Mcg Capsule) 0.5 mcg PO BID BERTHA Stop: 12/12/21 20:59 Last Admin: 11/14/21 08:12 Dose: 0.5 mcg Documented by: Clonidine HCl (Clonidine Hcl 0.1 Mg Tab) 0.1 mg PO BID BERTHA Stop: 12/12/21 20:59 Last Admin: 11/14/21 08:14 Dose: 0.1 mg Documented by: Cyanocobalamin (Cyanocobalamin (B-12) 100 Mcg Tablet) 100 mcg PO QAM [facility] Stop: 11/27/21 09:01 Last Admin: 11/14/21 08:13 Dose: 100 mcg Documented by: Dextrose (Dextrose 50% 50 Ml Syringe) 25 - 50 ml IV UD PRN; Protocol PRN Reason: Hypoglycemia Protocol Stop: 12/12/21 17:14 Folic Acid (Folic Acid 1 Mg Tab) [facility] Stop: 12/12/21 09:01 Last Admin: 11/14/21 08:14 Dose: 1 mg Documented by: Glucagon (Glucagon For Inj 1 Mg Vial) 1 mg IM UD PRN; Protocol PRN Reason: Hypoglycemia Protocol Stop: 12/12/21 17:14 Glucose (Glucose 40% Gel 15 Gm Tube) 15 - 30 gm PO UD PRN; Protocol PRN Reason: Hypoglycemia Protocol Stop: 12/12/21 17:14 Glucose (Glucose 10 Tabs/Tube) 4 - 8 tabs PO UD PRN; Protocol PRN Reason: Hypoglycemia Protocol Stop: 12/12/21 17:14 Cefepime HCl 2,000 mg/ Syringe 20 mls @ 5 mls/min IV Q24H BERTHA; Protocol Stop: 12/25/21 15:59 Last Admin: 11/13/21 17:47 Dose: 5 mls/min Documented by: Daptomycin 550 mg/ Syringe 11 mls @ 5.75 mls/min IV Q48H BERTHA; Protocol Stop: 12/26/21 15:59 Sodium Bicarbonate 150 meq/ (Sterile Water) 1,150 mls @ 75 mls/hr IV .[id number] [facility] Stop: 11/15/21 12:09 Last Admin: 11/14/21 10:07 Dose: 75 mls/hr Documented by: Insulin Aspart (Insulin Aspart Per Unit) 0 units SC [facility]; Protocol Stop: 12/12/21 17:29 Last Admin: 11/14/21 08:17 Dose: 3 units Documented by: Insulin Glargine (Insulin Glargine Solostar 100 Units/Ml 3 Ml Pen) 0 units SC HS [facility]; Protocol Stop: 12/13/21 20:59 Last Admin: 11/13/21 21:15 Dose: 10 units Documented by: Latanoprost (Latanoprost 0.005% Op Soln 2.5 Ml Btl) 1 drops OP HS [facility] Stop: 12/12/21 20:59 Last Admin: 11/13/21 21:16 Dose: 1 drops Documented by: Levothyroxine Sodium (Levothyroxine Sodium 50 Mcg Tablet) 50 mcg PO DAILYBB [facility] Stop: 12/13/21 06:29 Last Admin: 11/14/21 05:27 Dose: 50 mcg Documented by: Metoprolol Succinate (Metoprolol Succ 50mg Ext Rel Tab) 100 mg PO QAM [facility] Stop: 12/13/21 08:59 Last Admin: 11/14/21 08:13 Dose: 100 mg Documented by: Miscellaneous (Carbohydrates For Hypoglycemia ) 15 - 30 gm PO UD PRN PRN Reason: Hypoglycemia Treatment Stop: 12/12/21 17:14 Miscellaneous Information (Daptomycin Consult Active) 1 ea N/A UD PRN PRN Reason: Consult Stop: 12/12/21 14:12 Miscellaneous Information (Pharmacy Glycemic Mgmt Consult) 1 ea N/A UD PRN PRN Reason: Consult Stop: 12/12/21 16:54 (1) Osteomyelitis Laterality: unspecified laterality Osteomyelitis location: foot Osteomyelitis type: unspecified type Qualified Code(s): M86.9 - Osteomyelitis, unspecified
--- NOTE | 2021-11-14 13:24 | Consultation ---
Date of Consultation November 14, 2021 Assessment & Plan (1) Peripheral arterial disease: Pt with mild PAD and 3 vessel runoff to foot. No indications for revascularization at this time. Recommend orthopedics proceed with planned procedure. (2) ESRD (end stage renal disease): Pt also to start HD per nephrology. PLanning on permcath insertion in OR tomorrow morning by Dr Hdez. Pt agreeable. Patient was seen, examined, and chart reviewed. Agree with exam and treatment plan of the Vascular PA. History of Present Illness Reason for Consultation: LLE PAD Attending Physician: Vinicio Mora MD History of Present Illness 71 yo m with multiple medical problems, including DMII, CKD IV, pulmonary HTN, hypothyroidism, HTN, anemia, SUKHWINDER, dyslipidemia, RLE foot drop, gout, admitted with severe infection of LLE foot and EARLENE, seen in consultation for PAD noted on US and for permcath insertion for HD initiation. Pt states he noted discoloration of L foot about 5 days ago, and came to [facility] for eval. Ambulates with a R foot brace and walker at home. Remote hx of R great toe amputation and states he required some kind of debridement of R lower leg as well. States he has severe neuropathy in BLE, so did not feel any associated pain in foot. Denies fever, chest pain, SOB, abd pain, N/V, rest pain, claudication, other complaints. Pt arterial US of LLE demonstrates multiphasic flow to the ankle, and stenosis of distal ant tib/DP arteries. Allergies Allergy/AdvReac Type Severity Reaction Status Date / Time metformin Allergy Intermediate GI SYMPTOMS Verified 09/28/21 12:30 isosorbide Allergy Mild Rash Verified 09/28/21 12:30 lisinopril Allergy Unknown CAN'T Verified 09/28/21 12:30 REMEMBER Home Medications Medication Instructions Recorded Confirmed Type aspirin 81 mg tablet,delayed 81 mg PO DAILY #90 tab 06/06/20 11/12/21 Rx release (Adult Low Dose Aspirin) pen needle, diabetic 31 gauge x #100 ea 02/22/21 07/06/21 Rx 3/16" (BD Ultra-Fine Mini Pen Needle) amlodipine 5 mg tablet 5 mg PO DAILY #30 tab 03/28/21 11/12/21 Rx clonidine HCl 0.1 mg tablet 0.1 mg PO BID #180 tab 05/07/21 11/12/21 Rx atorvastatin 40 mg tablet 40 mg PO DAILY #90 tab 06/11/21 11/12/21 Rx diphenoxylate-atropine 2.5 1 tab PO QID PRN #60 tab 07/10/21 11/12/21 Rx mg-0.025 mg tablet (Lomotil) metoprolol succinate 100 mg 100 mg PO QAM #90 tab 09/03/21 11/12/21 Rx tablet,extended release 24 hr allopurinol 100 mg tablet 50 mg PO DAILY #45 tab 09/05/21 11/12/21 Rx insulin glargine 100 unit/mL (3 50 unit SQ PM #15 ml 09/05/21 11/12/21 Rx mL) subcutaneous pen (Lantus Solostar U-100 Insulin) brimonidine 0.15 % eye drops 1 drp OPB BID 11/12/21 11/12/21 History calcitriol 0.5 mcg capsule 0.5 mcg PO BID 11/12/21 11/12/21 History cholecalciferol (vitamin D3) 50 150 mcg PO DAILY 11/12/21 11/12/21 History mcg (2,000 unit) tablet furosemide 40 mg tablet 40 mg PO BID 11/12/21 11/12/21 History latanoprost 0.005 % eye drops 1 drp OPHTHALMIC (EYE) HS 11/12/21 11/12/21 History levothyroxine 50 mcg tablet 50 mcg PO DAILY 11/12/21 11/12/21 History loperamide 2 mg capsule (Imodium 2 mg PO Q4H PRN 11/12/21 11/12/21 History A-D) losartan 50 mg tablet 50 mg PO BID 11/12/21 11/12/21 History multivitamin 1 tab PO DAILY 11/12/21 11/12/21 History Patient History Medical History (Updated 11/14/21 @ 13:26 by Solange Carbone PA-C) Chronic renal insufficiency, stage IV (severe) Diabetes mellitus, type 2 Diabetic autonomic neuropathy Diabetic foot ulcer associated with type 2 diabetes mellitus Dyslipidemia Ex-smoker Foot drop RT FOOT (WEARS BRACE) Gait disturbance History of diabetic ulcer of foot Hx of gout Hypertension Hypothyroidism Morbid obesity with BMI of 45.0-49.9, adult Peripheral arterial disease Pulmonary arterial hypertension Sleep apnea NO DEVICE CURRENTLY Type 2 diabetes mellitus with retinopathy Vitamin D deficiency Surgical History Amputated toe of right foot History of cataract surgery RT/LEFT History of colonoscopy Family History Mother Pancreatic cancer Breast cancer Family history of diabetes mellitus Father Myocardial infarction Brother Prostate cancer Other No family history of adverse response to anesthesia Denies family history of Coronary heart disease Colorectal cancer Social History Smoking Status: Never smoker Second Hand Exposure: No; Do You Dip or Chew Tobacco: No; Hx Alcohol Use: No Hx Substance Use: No Preferred Language: [place] Communication Ability: Effective Hearing Ability: Normal Merchandising Coordinator Required: No Beliefs That Will Affect Care: None marital status: Single Current Living Situation: Alone current occupational status: disabled How many Children do You have: 0 Feels Safe at Home: Yes Safety Concerns: Feels Safe At This Time Childhood Exposure to Second-Hand Smoke: No caffeine: No during the past year weight has: remained stable Dental Care, Regularly: Yes Physical Activity Frequency: Does not Exercise Seatbelt Use: always Sunscreen Use: No Assistive Devices: Oxygen - Continuous Review of Systems Review of Systems: All systems reviewed & are unremarkable except as noted in HPI & below Physical Exam Constitutional: WD/WN, vitals as above + morbidly obese and + disheveled ENMT: Ears: no hearing impairment Neck: trachea midline Respiratory: normal respiratory effort, lungs clear to auscultation Auscultation: + diminished lung sounds Cardiovascular: Rate/Rhythm: regular rate and regular rhythm Vessels: posterior tibial pulses present (dopplerable BLE), dorsalis pedis pulses present (dopplerable BLE) and radial pulses present; + abnormal peripheral pulses Extremities: normal capillary refill and + edema Gastrointestinal (Abdomen): Inspection/Auscultation: abdomen normal to inspection and normal bowel sounds Percussion/Palpation: abdomen soft; abdomen nontender Musculoskeletal: Extremities: + amputation noted (R great toe, old surgical scars anterior R lower leg) Skin: + ulcer, + induration, + wound, + erythema and + eschar L foot with gangrene of 4th and 5th toes, large area of eschar noted plantar surface lateral side foot, blisters noted plantar surface Neurologic: moves all extremities and awake; not confused Psychiatric: Orientation: alert and oriented x 3 Eye Contact: + fair eye contact Affect: + flat affect Results & Data ([facility]) Vital Signs (Past 12 Hours) Vital Signs Temp Pulse Resp BP Pulse Ox 11/14/21 08:20 36.1 C L 85 19 131/63 96 11/14/21 03:47 36.8 C 78 18 148/74 H 99
[2021-11-14] MEDS ORDERED: DAPTOmycin 575 MG in SYRINGE 0 ML IV SCH (15:00)
--- NOTE | 2021-11-14 15:44 | Communication Note ---
Date of Service: November 14, 2021 Pt sitting up in bed. Awake, alert. Answering questions appropriately. Discussed with patient about plans for surgical intervention of the left foot. Dr. Jay reviewing MRI. He is deciding between TMA vs BKA for the LLE. Discussed with patient. He seems to be agreeable at this time to surgery and will let Dr. Jay make the final decision about surgical intervention. Dr Jay will discuss plans with him. Plan for surgery on Friday.
[2021-11-14] MEDS ORDERED: DAPTOmycin 550 MG in SYRINGE 0 ML IV SCH (16:00)
[2021-11-14] MEDS: CEFEPIME 2,000 MG in SYRINGE 0 ML IV SCH (16:26)
[2021-11-14] MEDS: LATANOPROST 0.005% OP SOLN 2.5 ML BTL OP SCH (21:14)
[2021-11-14] MEDS: INSULIN GLARGINE SOLOSTAR 100 UNITS/ML 3 ML PEN SC SCH (21:16)
[2021-11-15] MEDS: SODIUM BICARBONATE 8.4% 150 MEQ in WATER, STERILE 1,000 ML IV SCH (00:59)
[2021-11-15] MEDS: LEVOTHYROXINE SODIUM 50 MCG TABLET PO SCH (06:02)
--- NOTE | 2021-11-15 07:33 | History & Physical Bridge Note ---
Date of Service November 15, 2021 History & Physical Bridge Note Patient for permcath insertion today. I have discussed the risks options and benefits of the procedure with the patient. The patient understands the risks options and benefits and agrees to the procedure. I have examined the patient, reviewed the History & Physical and in the interval since the performance of the History & Physical I have noted the following changes of clinical significance: no changes noted
[2021-11-15] MEDS ORDERED: fentaNYL citrate 100 MCG/2 ML VIAL ONE (07:43)
[2021-11-15] MEDS ORDERED: MIDAZOLAM HCL 1 MG/ML 2ML VIAL ONE (07:43)
[2021-11-15] MEDS ORDERED: HEPARIN SOD (PORCINE) 5,000 UNITS/ML VIAL ONE (07:43)
--- NOTE | 2021-11-15 07:59 | Pre Anesthesia Assessment ---
Date of Service November 15, 2021 Pre Sedation Assessment Vital Signs Temp Pulse Resp BP Pulse Ox 11/15/21 07:37 37 C 118 H 20 134/87 95 11/15/21 03:18 36.8 C 88 18 139/93 94 11/14/21 23:17 36.7 C 98 H 20 124/70 93 11/14/21 19:08 36.7 C 80 18 133/74 93 11/14/21 15:54 36.7 C 71 20 117/66 91 11/14/21 12:00 36.7 C 83 20 136/64 96 11/14/21 08:20 36.1 C L 85 19 131/63 96 Cardiovascular RRR, no murmur, no edema Respiratory normal respiratory effort, lungs clear to auscultation Pre-Sedation Airway Assessment Smoking Status: Never smoker Hx Sleep Apnea: Yes (does not have device) Short, Thick Neck: Yes Thyromental Distance: > or= 3.5 Finger Breadths Oral Cavity: + Dentures and + Dental Abnormalities Mallampati Class: III ASA: ASA4 NPO Status Date of Last Intake of Fluids: 11/14/21 Time of Last Intake of Fluids: 20:00 Date of Last Intake of Solid Food: 11/14/21 Time of Last Intake of Solid Foods: 20:00 Procedure Planning Contraindications for Sedation: none Current Medications Reviewed: Yes Notes The planned sedation has been discussed with the patient. Informed Consent was obtained. I have identified the patient, determined the appropriateness of sedation and have assessed the patient immediately prior to the procedure. All medicine(s) and interventions are by my order.
[2021-11-15] MEDS ORDERED: LIDOCAINE 1% LOCAL 20 ML VIAL INFIL ONE (08:14)
--- NOTE | 2021-11-15 08:25 | Post Operative Brief Note ---
Immediate Post Op Note v1 Date of Surgery November 15, 2021 Pre & Post Diagnosis Operation Date: 11/15/21 07:55 Pre-Op Diagnosis: Acute Kidney Injury Post-Op Diagnosis: Acute Kidney Injury I identified the patient and participated in the time-out.: Yes Procedure Operation Date: 11/15/21 07:55 Actual Procedures p Insertion of Perm Catheter, Right Internal Jugular Approach, Ultrasound Localization of Right Internal Jugular Vein, Fluoroscopy for Positioning, Moderate Sedation [id number](Right) - Patricio Hdez MD Surgeon Patricio Hdez MD Taxation Consultant MD Miki Estimated Blood Loss 15 Findings Consistent with Post-Op Diagnosis Anesthesia Type RN Sedation Complications none Disposition Accompanied Patient To Recovery: No Disposition: Recovery Room
--- NOTE | 2021-11-15 08:30 | Post Anesthesia Assessment ---
Date of Service November 15, 2021 Post Sedation Assessment Vital Signs Temp Pulse Pulse Resp BP Pulse Ox 11/15/21 08:25 118 H 28 H 110/70 99 11/15/21 08:20 120 H 28 H 108/66 99 11/15/21 08:15 117 H 28 H 101/73 99 11/15/21 08:10 109 H 28 H 118/68 100 11/15/21 08:05 123 H 28 H 117/68 100 11/15/21 08:00 119 H 26 H 122/78 98 11/15/21 07:37 37 C 118 H 20 134/87 95 11/15/21 03:18 36.8 C 88 18 139/93 94 11/14/21 23:17 36.7 C 98 H 20 124/70 93 11/14/21 19:08 36.7 C 80 18 133/74 93 11/14/21 15:54 36.7 C 71 20 117/66 91 11/14/21 12:00 36.7 C 83 20 136/64 96 Recovery Score Activity: Moves 4 extremities Respiration: Deep Breath/Cough Circulation: +/-20% PreAnes Value Consciousness: Fully Awake Oxygen Saturation: O2 needed for >90% Post Anesthesia Score: 9 Discharge Sedation Level of Care: Fast Track Phase II Post Sedation Plan On clinical assessment, the patient appears to have tolerated the sedation without complications. Patient is recovering as anticipated. Patient will continue to be monitored by nursing and may be discharged when sedation discharge criteria are met per below protocol. Upon Completions of procedure up to 15 minutes continue every 5 minute vital signs and the P.A.R. score; then discharge to a Phase I or Fast Track to Phase II per the following guidelines: * Discharge Patient to appropriate Phase II area if PAR is 8 or greater or return to pre- procedure baseline. The post - procedure orders will be as directed. * If PAR score is less than 8 or not return to pre-procedure baseline then patient will follow Phase I monitoring till PAR is reached for Phase II. The Phase I may be done in procedure room or may call to secure a Phase I area. * If naloxone or flumazenil are used for reversal, hold in Phase I for continued monitoring from when last reversal dose was given for a minimum of 60 minutes or longer pending the nurse and/or physician discretion of patient condition before discharge to Phase II. Please call the Sedation Physician to re-evaluate and complete post-note for discharge to Phase II area. Do NOT discharge from procedure sedation or Phase 1 until post- sedation evaluation note is complete by procedure /sedation MD Sedation Discharge Instructions to be given to the patient at discharge to home.
--- NOTE | 2021-11-15 08:32 | Procedure Note ---
Angiogram Post Procedure Fluoroscopy Time (minutes): 0.3 Conscious Sedation Time (minutes): 25 Radiation (mGy): 7 Contrast: none Post Operative Report Pre & Post Diagnosis Operation Date: 11/15/21 07:55 Pre-Op Diagnosis: Acute Kidney Injury Post-Op Diagnosis: Acute Kidney Injury I identified the patient and participated in the time-out.: Yes Procedure Operation Date: 11/15/21 07:55 Actual Procedures p Insertion of Perm Catheter, Right Internal Jugular Approach, Ultrasound Localization of Right Internal Jugular Vein, Fluoroscopy for Positioning, Moderate Sedation [id number](Right) - Patricio Hdez MD Surgeon Patricio Hdez MD [place]in[place] Operator MD Miki Estimated Blood Loss 15 Findings Consistent with Post-Op Diagnosis Specimens none Anesthesia Type RN Sedation Complications none Disposition Accompanied Patient To Recovery: No Disposition: Recovery Room Indications This is a 71 year old male with acute renal failure in need of hemodialysis access. He presents for perm cath placement. Description of Procedure Patient was taken to the angio suite and placed in the supine position. The right side of the neck and chest wall were prepped and draped in a sterile manner. A team timeout was performed. Local anesthesia was then administered to the appropriate areas of the neck and chest wall. Ultrasound was then used to locate the right internal jugular vein. The vein compressed easily, had no filing defects, and was patent. The vein was then punctured under direct ultrasound imaging. A guidewire was then passed centrally under fluoroscopic imaging. A stab wound was then made in the anterior chest wall and a 19 cm permcath was passed from the stab wound on the chest wall to the puncture site on the neck. The puncture site was then dilated till the 14Fr peel away sheath was inserted. The permcath was then inserted through the sheath to a central position in the distal superior vena cava. The peel away sheath was then removed. The catheter was then sutured in place using nylon sutures. The puncture was then closed using a 4-0 Vicryl subcuticular suture. Dermabond was used for a dressing on the puncture site. Both ports aspirated and flushed easily and were then packed with heparin. A sterile dressing was applied to the catheter. The patient left the angio suite in good condition and tolerated the procedure well. Dr. Hdez was present and scrubbed for the entirety of the pro cedure. I attest to the content of the Intraoperative Record and any orders documented therein. Any exceptions are noted below.
[2021-11-15] MEDS ORDERED: METOPROLOL TARTRATE 1 MG/ML VIAL IV PRN (08:59)
[2021-11-15] MEDS ORDERED: EPOETIN ALFA 10,000 UNITS/ML VIAL IV ONE (09:00)
--- NOTE | 2021-11-15 09:42 | Nephrology Progress Note ---
Date of Service November 15, 2021 Assessment & Plan (1) Acute kidney injury: Plan: * EARLENE due to infection/inflammation in the setting of ARB therapy * Losartan has been stopped * Urinalysis negative for blood. Urine microscopy negative for cellular casts * 11/12/21 renal US: R kidney 10.8 cm, L kidney 11.7 cm. No hydronephrosis, calculi or mass * Stop IVF * 1st run HD today. Orders entered into EMR and HD RN notified * Monitor PRP (2) ESRD (end stage renal disease): Plan: * Baseline Cr 4.2 - 4.4 w/ EGFR 11 - 13 cc/min. Renal impairment due to combination AODM, vascular disease, obesity * Previously declined AVF creation of dialysis preparation due to fecal incontinence (3) Anemia: Plan: * h/o CKD associated anemia on Aranesp therapy * Given necrotic foot ulcer, recommend blood transfusion. Patient likely will not respond to ROBERTH due to inflammation * Transfused 1 U PRBC 11/12/21 (4) Diabetic foot ulcer associated with type 2 diabetes mellitus: Plan: * Antibiotic therapy as per primary service. Recommend consultation w/ Pharmacy to dose appropriately for ESRD * 11/06 CARLOS ENRIQUE: Hemodynamically significant stenosis is seen most pronounced in the distal anterior tibial artery and dorsalis pedis artery * Await surgical evaluation. Patient may require BKA. Surgery planned for 11/16/21 (5) Fecal incontinence: Plan: * Await GI recommendations Admission and Anticipated Discharge Date Admission Date: November 12, 2021 Subjective Mr. Arias was evaluated in his hospital room this morning. He had just returned from OR and has a new R IJ TCC in place. Patient denies fever, angina Review of Systems Constitutional: + fever Eyes: no problem reported Ear, Nose, Mouth, Throat: no problem reported Respiratory: no cough and no dyspnea Cardiovascular: + edema; no chest pain Gastrointestinal: + diarrhea/loose stools; no abdominal pain Genitourinary: no dysuria, no urinary hesitancy or no hematuria Integumentary: + skin ulcer Neurologic: no confusion Physical Exam Constitutional: + morbidly obese Eyes: PERRL, conjunctivae normal, anicteric sclerae ENMT: external ear and nose normal, oropharynx normal Neck: trachea midline, no thyromegaly Respiratory: normal respiratory effort, lungs clear to auscultation Cardiovascular: Rate/Rhythm: regular rate and regular rhythm Extremities: + edema Gastrointestinal (Abdomen): normal bowel sounds, soft, nontender, no hepatosplenomegaly Neurologic: awake; not confused Results & Data ([facility]) Vital Signs (Past 12 Hours) Vital Signs Temp Pulse Pulse Resp BP Pulse Ox 11/15/21 08:30 119 H 28 H 108/71 100 11/15/21 08:25 118 H 28 H 110/70 99 11/15/21 08:20 120 H 28 H 108/66 99 11/15/21 08:15 117 H 28 H 101/73 99 11/15/21 08:10 109 H 28 H 118/68 100 11/15/21 08:05 123 H 28 H 117/68 100 11/15/21 08:00 119 H 26 H 122/78 98 11/15/21 07:37 37 C 118 H 20 134/87 95 11/15/21 03:18 36.8 C 88 18 139/93 94 11/14/21 23:17 36.7 C 98 H 20 124/70 93 Laboratory Results AM labs postponed due to surgery. Results currently pending PG Care Time/CCT Total # of Minutes Spent Total Time Spent with Patient: Total time spent is greater than 50% in coordination of care (as documented) at patient's floor/unit and/or counseling patient: Coding Level of Care Code 50550 Subseq Hosp Care Lvl 3 Diagnoses Acute kidney injury N17.9 ESRD (end stage renal disease) N18.6 Anemia D64.9 Diabetic foot ulcer associated with type 2 diabetes mellitus E11.621; L97.509 Fecal incontinence R15.9
[2021-11-15 09:45] LABS: Hematocrit (blood only) 25.6 % (42-52); Hemoglobin 8.7 g/dL (14.0-18.0); Mean Corpuscular Hemoglobin 29.1 pg (25-34); Mean Corpuscular Volume 85.6 fL (80-100); Mean Platelet Volume 9.3 fL (7.4-10.4); Platelet Count 291 K/uL (130-400); RDW Coefficient of Variation 16.7 % (11.5-14.5); RDW Standard Deviation 53.2 fL (36.4-46.3); Red Blood Count 2.99 M/uL (4.7-6.1); White Blood Count 22.93 K/uL (4.8-10.8)
[2021-11-15] MEDS: INSULIN ASPART PER UNIT SC SCH ×4 (10:09→20:15)
[2021-11-15] MEDS: allopurinoL 100 MG TAB PO SCH (10:11)
[2021-11-15 10:16] LABS: BUN Creatinine Ratio 19.8 (10-20); Calcium 8.5 mg/dl (8.5-10.1); Creatinine Clr Calc Pharmacy 14.1 ml/min; Est GFR (African American) 9.3 ml/min; Est GFR (Non-African American) 8.1 ml/min; Magnesium 2.1 mg/dl (1.7-2.4); Phosphorus 7.6 mg/dl (2.5-4.9); Potassium 4.1 mmol/L (3.5-5.1)
[2021-11-15] MEDS: FOLIC ACID 1 MG TAB PO SCH (10:17)
[2021-11-15] MEDS: amLODIPine BESYLATE 5 MG TAB PO SCH (10:17)
[2021-11-15] MEDS: CALCITRIOL 0.25 MCG CAPSULE PO SCH ×2 (10:18→20:17)
[2021-11-15] MEDS: ASPIRIN 81 MG ECTAB PO SCH (10:18)
[2021-11-15] MEDS: cloNIDine HCL 0.1 MG TAB PO SCH ×2 (10:18→20:17)
[2021-11-15] MEDS: METOPROLOL SUCC 50MG EXT REL TAB PO SCH (10:18)
[2021-11-15] MEDS: CYANOCOBALAMIN (B-12) 100 MCG TABLET PO SCH (10:19)
[2021-11-15] MEDS: BRIMONIDINE TARTRATE-P 0.15% 5 ML BTL OPB SCH ×2 (10:19→20:19)
[2021-11-15 10:23] LABS: C Reactive Protein 41.46 mg/dl (0-0.5)
--- NOTE | 2021-11-15 12:20 | Cardiology Consultation ---
Date of Consultation November 15, 2021 Assessment & Plan (1) Atrial fibrillation with rapid ventricular response: (2) Pulmonary arterial hypertension: (3) Dyslipidemia: (4) Hypotension: (5) Dyspnea on exertion: (6) Anemia: (7) Preop cardiovascular exam: ASSESSMENT/PLAN: 1. AFib with RVR: New diagnosis for him. This may represent chronic paroxysmal issue given that he is completely asymptomatic. Could also be new onset altogether. Discussed the diagnosis in detail and treatment strategies such as rate control versus rhythm control. Given that he has been hypotensive today and is being planned for hemodialysis and surgery, will proceed with rhythm control attempt. Further rate-controlling medications would likely further lower his blood pressure. Start amiodarone intravenously today. Would recommend amiodarone at least for the short term given his upcoming surgery, act isai infection, and likelihood that rate control may prove to be quite difficult especially in light of hypotension. Recommend heparin drip for anticoagulation for stroke risk reduction. Discussed with primary hospitalist, Dr. Mora, and given that he has required blood transfusion he would like to hold off for now but is agreeable to initiate heparin drip when able. Echo ordered. Monitor TSH and transaminase levels while on amiodarone. 2. Hypotension: New today since returning from PermCath placement and also since the initiation of AFib with RVR. He also has active infection, consider sepsis. Hold amlodipine. May need to also hold other antihypertensive agents. He is asymptomatic. Will defer other management to primary hospitalist service (we discussed his hypotension). 3. Dyspnea on exertion: Difficult to know his volume status based on exam. Volume will be managed by Nephrology in the setting of hemodialysis. Likely multifactorial. This is a chronic issue with acute worsening recently. He has significant pulmonary hypertension, anemia, active infection, obesity. Ischemic evaluation is not warranted at this time given his other comorbidities including active infection, hypotension, AFib with RVR. 4. Anemia: As per primary hospitalist service. Has received transfusion of PRBC. 5. Dyslipidemia: Continue high-intensity statin therapy. 6. Peripheral arterial disease: As per vascular. 7. Pulmonary hypertension: Reported as severe on 2019 echo. Can be re- evaluated on pending echo. 8. Preoperative cardiac assessment: Would assume high risk given exertional dyspnea, poor functional status, and other comorbidities, including severe pulmonary hypertension. May have underlying CAD given documented atherosclerosis in peripheral arteries. Given his presentation as noted above and osteomyelitis, would not delay surgery for ischemic evaluation. 9. Disposition: I will be away from the hospital for the next several days. Please call on-call asset availability leader, Dr. Duenas, for any questions or concerns. Patient care and plan communicated with Dr. Mora of the primary hospitalist service. History of Present Illness Reason for Consultation: Afib and pre-op evaluation Requesting Physician: Vinicio Mora MD Attending Physician: Vinicio Mora MD History of Present Illness Mr. Arias is a 71-year-old gentleman with a history significant for advanced CKD, peripheral arterial disease, sleep apnea, pulmonary hypertension, diabetes with diabetic neuropathy, hypertension, and osteomyelitis. His primary asset availability leader is Dr. Fischer. Cardiology was consulted due to new onset atrial fibrillation and for preoperative evaluation. He was admitted on 11/12/2021 after presenting to his PCP office with shortness of breath. He has chronic intermittent shortness of breath but for the past week, has noted increasingly worsening dyspnea with exertion. He denies shortness of breath at rest, orthopnea, chest pain, syncope, near-syncope, palpitations or bleeding. While at the PCP appointment, he had chills/rigors and was febrile. He was sent to the emergency department. He had been experiencing rigors for approximately 1 week. He was found to be hypoxic on room air in the emergency department and creatinine was elevated at 7.18, above his baseline of approximately 4. He was found to have necrotic tissue involving his left foot and imaging suggested osteomyelitis. Infectious Disease was consulted remotely and recommended surgical intervention. Orthopedics plans on surgery tomorrow. Nephrology was consulted and plans on pursuing hemodialysis today. He has received packed red blood cells for anemia. There has not been any obvious bleeding. He denies chest pain. He believes that his breathing has improved since here but has also been sedentary. This morning at approximately 7:28 a.m., sinus rhythm with frequent PACs converted to atrial fibrillation with rapid ventricular response. He is co mpletely asymptomatic with this change in rhythm. This occurred less than 1 minute before being taken off of telemetry to be sent for hemodialysis access PermCath placement by vascular surgery. Since he has returned, he has been mildly hypotensive, but once again asymptomatic. His blood pressure was normal prior. Review of systems: As above. Review of systems otherwise negative/unremarkable. Family history: Father had CAD and in his 80s. Social history: Denies smoking or drug abuse. Consumed alcohol from his 20s to 50s. He lives alone. Never . No children. Unaccompanied in his hospital room. Allergies Allergy/AdvReac Type Severity Reaction Status Date / Time metformin Allergy Intermediate GI SYMPTOMS Verified 09/28/21 12:30 isosorbide Allergy Mild Rash Verified 09/28/21 12:30 lisinopril Allergy Unknown CAN'T Verified 09/28/21 12:30 REMEMBER Home Medications Medication Instructions Recorded Confirmed Type aspirin 81 mg tablet,delayed 81 mg PO DAILY #90 tab 06/06/20 11/12/21 Rx release (Adult Low Dose Aspirin) pen needle, diabetic 31 gauge x #100 ea 02/22/21 07/06/21 Rx 3/16" (BD Ultra-Fine Mini Pen Needle) amlodipine 5 mg tablet 5 mg PO DAILY #30 tab 03/28/21 11/12/21 Rx clonidine HCl 0.1 mg tablet 0.1 mg PO BID #180 tab 05/07/21 11/12/21 Rx atorvastatin 40 mg tablet 40 mg PO DAILY #90 tab 06/11/21 11/12/21 Rx diphenoxylate-atropine 2.5 1 tab PO QID PRN #60 tab 07/10/21 11/12/21 Rx mg-0.025 mg tablet (Lomotil) metoprolol succinate 100 mg 100 mg PO QAM #90 tab 09/03/21 11/12/21 Rx tablet,extended release 24 hr allopurinol 100 mg tablet 50 mg PO DAILY #45 tab 09/05/21 11/12/21 Rx insulin glargine 100 unit/mL (3 50 unit SQ PM #15 ml 09/05/21 11/12/21 Rx mL) subcutaneous pen (Lantus Solostar U-100 Insulin) brimonidine 0.15 % eye drops 1 drp OPB BID 11/12/21 11/12/21 History calcitriol 0.5 mcg capsule 0.5 mcg PO BID 11/12/21 11/12/21 History cholecalciferol (vitamin D3) 50 150 mcg PO DAILY 11/12/21 11/12/21 History mcg (2,000 unit) tablet furosemide 40 mg tablet 40 mg PO BID 11/12/21 11/12/21 History latanoprost 0.005 % eye drops 1 drp OPHTHALMIC (EYE) HS 11/12/21 11/12/21 History levothyroxine 50 mcg tablet 50 mcg PO DAILY 11/12/21 11/12/21 History loperamide 2 mg capsule (Imodium 2 mg PO Q4H PRN 11/12/21 11/12/21 History A-D) losartan 50 mg tablet 50 mg PO BID 11/12/21 11/12/21 History multivitamin 1 tab PO DAILY 11/12/21 11/12/21 History Patient History Medical History Chronic renal insufficiency, stage IV (severe) Diabetes mellitus, type 2 Diabetic autonomic neuropathy Diabetic foot ulcer associated with type 2 diabetes mellitus Dyslipidemia Ex-smoker Foot drop RT FOOT (WEARS BRACE) Gait disturbance History of diabetic ulcer of foot Hx of gout Hypertension Hypothyroidism Morbid obesity with BMI of 45.0-49.9, adult Peripheral arterial disease Pulmonary arterial hypertension Sleep apnea NO DEVICE CURRENTLY Type 2 diabetes mellitus with retinopathy Vitamin D deficiency Surgical History Amputated toe of right foot History of cataract surgery RT/LEFT History of colonoscopy Family History Mother Pancreatic cancer Breast cancer Family history of diabetes mellitus Father Myocardial infarction Brother Prostate cancer Other No family history of adverse response to anesthesia Denies family history of Coronary heart disease Colorectal cancer Social History Smoking Status: Never smoker Second Hand Exposure: No; Do You Dip or Chew Tobacco: No; Hx Alcohol Use: No Hx Substance Use: No Preferred Language: Indonesian Communication Ability: Effective Hearing Ability: Normal Dominatrix Required: No Beliefs That Will Affect Care: None marital status: Single Current Living Situation: Alone current occupational status: disabled How many Children do You have: 0 Feels Safe at Home: Yes Safety Concerns: Feels Safe At This Time Childhood Exposure to Second-Hand Smoke: No caffeine: No during the past year weight has: remained stable Dental Care, Regularly: Yes Physical Activity Frequency: Does not Exercise Seatbelt Use: always Sunscreen Use: No Assistive Devices: Oxygen - Continuous Physical Exam Physical Exam: Gen.: No acute distress. Alert. HEENT: Anicteric sclera. Neck: Thick neck. No bruits. Normal carotid upstrokes bilaterally. Cardiac: PMI was nondisplaced. No ventricular heave. Irregularly irregular and tachycardic. Normal S1-S2. No murmurs, rubs, or gallops. Pulmonary: Clear to auscultation bilaterally without wheezes, rales, or rhonchi. Abdomen: Obese. Soft, nontender, nondistended, with normoactive bowel sounds. No bruits noted. Extremities: 2+ radial pulses bilaterally. 1+ left lower extremity edema. Left lower extremity larger in circumference compared to the right with diffuse erythema. Distal left lower extremity was bandaged. Psychiatric: Affect appears appropriate. Results & Data ([facility]) Vital Signs (Past 12 Hours) Vital Signs Temp Pulse Pulse Pulse Resp BP Pulse Ox 11/15/21 10:07 120 H 24 86/60 L 94 11/15/21 08:48 36.9 C 127 H 24 98/62 L 93 11/15/21 08:30 119 H 28 H 108/71 100 11/15/21 08:25 118 H 28 H 110/70 99 11/15/21 08:20 120 H 28 H 108/66 99 11/15/21 08:15 117 H 28 H 101/73 99 11/15/21 08:10 109 H 28 H 118/68 100 11/15/21 08:05 123 H 28 H 117/68 100 11/15/21 08:00 119 H 26 H 122/78 98 11/15/21 07:37 37 C 118 H 20 134/87 95 11/15/21 03:18 36.8 C 88 18 139/93 94 Laboratory Results Laboratory Results - last 24 hr 11/14/21 11/14/21 11/15/21 16:31 19:57 07:28 WBC RBC Hgb Hct MCV MCH MCHC RDW Std Deviation RDW Coeff of Millie Plt Count MPV ESR Sodium Potassium Chloride Carbon Dioxide Anion Gap BUN Creatinine Est Cr Clr Drug Dosing Est GFR ( Amer) Est GFR (Non-Af Amer) BUN/Creatinine Ratio Glucose POC Glucose 180 H 212 H 178 H Calcium Phosphorus Magnesium C-Reactive Protein 11/15/21 11/15/21 11/15/21 09:33 09:33 09:33 WBC 22.93 H RBC 2.99 L Hgb 8.7 L Hct 25.6 L MCV 85.6 MCH 29.1 MCHC 34.0 RDW Std Deviation 53.2 H RDW Coeff of Millie 16.7 H Plt Count 291 MPV 9.3 ESR 125 H Sodium 138 Potassium 4.1 Chloride 102 Carbon Dioxide 16 L Anion Gap 20 H BUN 127 H Creatinine 6.43 H* Est Cr Clr Drug Dosing 14.1 Est GFR ( Amer) 9.3 Est GFR (Non-Af Amer) 8.1 BUN/Creatinine Ratio 19.8 Glucose 170 H POC Glucose Calcium 8.5 Phosphorus 7.6 H Magnesium 2.1 C-Reactive Protein 41.46 H 11/15/21 11:30 WBC RBC Hgb Hct MCV MCH MCHC RDW Std Deviation RDW Coeff of Millie Plt Count MPV ESR Sodium Potassium Chloride Carbon Dioxide Anion Gap BUN Creatinine Est Cr Clr Drug Dosing Est GFR ( Amer) Est GFR (Non-Af Amer) BUN/Creatinine Ratio Glucose POC Glucose 205 H Calcium Phosphorus Magnesium C-Reactive Protein Diagnostic Findings Telemetry personally reviewed: Sinus rhythm with frequent PACs converted AFib with RVR at approximately 7:20 a.m. on 11/15/2021. ECG personally reviewed: ECG 11/15/2021 8:51 a.m.: AFib RVR 125 beats per minute. PVC versus aberrantly conducted complex. ECG 11/12/2021 at 2:41 p.m.: Sinus rhythm with PACs 86 beats per minute. ECG 11/12/2021 at 10:30 a.m.: Sinus rhythm with frequent PACs 88 beats per minute. Chart reviewed. Left Foot MRI 11/12/2021: Cellulitis. Osteomyelitis of fifth metatarsal head, proximal, middle, and distal phalanges. Possible necrotizing fasciitis. Tenosynovitis of the extensor digitorum. Chest x-ray 11/12/2021: No acute process per Radiology. Moderate right hemidiaphragmatic elevation. Medications Administered Current Inpatient Medications Acetaminophen (Acetaminophen 325 Mg Tab) 650 mg PO Q4H PRN PRN Reason: Pain or Fever Stop: 12/12/21 14:38 Allopurinol (Allopurinol 100 Mg Tab) 50 mg PO DAILY BERTHA Stop: 12/13/21 08:59 Last Admin: 11/15/21 10:11 Dose: 50 mg Documented by: Amlodipine Besylate (Amlodipine Besylate 5 Mg Tab) 5 mg PO DAILY BERTHA Stop: 12/13/21 08:59 Last Admin: 11/15/21 10:17 Dose: 5 mg Documented by: Aspirin (Aspirin 81 Mg Ectab) 81 mg PO DAILY BERTHA Stop: 12/13/21 08:59 Last Admin: 11/15/21 10:18 Dose: 81 mg Documented by: Atorvastatin Calcium (Atorvastatin 40 Mg Tab) 40 mg PO DAILY BERTHA Stop: 12/13/21 08:59 Brimonidine Tartrate (Brimonidine Tartrate-P 0.15% 5 Ml Btl) 1 drops OPB BID BERTHA Stop: 12/12/21 20:59 Last Admin: 11/15/21 10:19 Dose: 1 drops Documented by: Calcitriol (Calcitriol 0.25 Mcg Capsule) 0.5 mcg PO BID BERTHA Stop: 12/12/21 20:59 Last Admin: 11/15/21 10:18 Dose: 0.5 mcg Documented by: Clonidine HCl (Clonidine Hcl 0.1 Mg Tab) 0.1 mg PO BID BERTHA Stop: 12/12/21 20:59 Last Admin: 11/15/21 10:18 Dose: 0.1 mg Documented by: Cyanocobalamin (Cyanocobalamin (B-12) 100 Mcg Tablet) 100 mcg PO QAM BERTHA Stop: 11/27/21 09:01 Last Admin: 11/15/21 10:19 Dose: 100 mcg Documented by: Dextrose (Dextrose 50% 50 Ml Syringe) 25 - 50 ml IV UD PRN; Protocol PRN Reason: Hypoglycemia Protocol Stop: 12/12/21 17:14 Folic Acid (Folic Acid 1 Mg Tab) 1 mg PO QAM BERTHA Stop: 12/12/21 09:01 Last Admin: 11/15/21 10:17 Dose: 1 mg Documented by: Glucagon (Glucagon For Inj 1 Mg Vial) 1 mg IM UD PRN; Protocol PRN Reason: Hypoglycemia Protocol Stop: 12/12/21 17:14 Glucose (Glucose 40% Gel 15 Gm Tube) 15 - 30 gm PO UD PRN; Protocol PRN Reason: Hypoglycemia Protocol Stop: 12/12/21 17:14 Glucose (Glucose 10 Tabs/Tube) 4 - 8 tabs PO UD PRN; Protocol PRN Reason: Hypoglycemia Protocol Stop: 12/12/21 17:14 Cefepime HCl 2,000 mg/ Syringe 20 mls @ 5 mls/min IV Q24H BERTHA; Protocol Stop: 12/25/21 15:59 Last Admin: 11/14/21 16:26 Dose: 5 mls/min Documented by: Daptomycin 550 mg/ Syringe 11 mls @ 5.75 mls/min IV Q48H BERTHA; Protocol Stop: 12/26/21 15:59 Last Admin: 11/14/21 16:26 Dose: 5.75 mls/min Documented by: Amiodarone HCl/Dextrose (Nexterone / D5w) 360 mg in 200 mls @ 33.333 mls/hr IV ONE ONE Stop: 11/15/21 18:44 Amiodarone HCl/Dextrose (Nexterone / D5w) 360 mg in 200 mls @ 16.667 mls/hr IV .Q12H BERTHA Stop: 12/15/21 18:59 Insulin Aspart (Insulin Aspart Per Unit) [address] [facility]; Protocol Stop: 12/12/21 17:29 Last Admin: 11/15/21 10:09 Dose: 4 units Documented by: Insulin Glargine (Insulin Glargine Solostar 100 Units/Ml 3 Ml Pen) [address] [facility]; Protocol Stop: 12/13/21 20:59 Last Admin: 11/14/21 21:16 Dose: 15 units Documented by: Latanoprost (Latanoprost 0.005% Op Soln 2.5 Ml Btl) [address] [facility] Stop: 12/12/21 20:59 Last Admin: 11/14/21 21:14 Dose: 1 drops Documented by: Levothyroxine Sodium (Levothyroxine Sodium 50 Mcg Tablet) [address] [facility] Stop: 12/13/21 06:29 Last Admin: 11/15/21 06:02 Dose: 50 mcg Documented by: Metoprolol Succinate (Metoprolol Succ 50mg Ext Rel Tab) [address] [facility] Stop: 12/13/21 08:59 Last Admin: 11/15/21 10:18 Dose: 100 mg Documented by: Metoprolol Tartrate (Metoprolol Tartrate 1 Mg/Ml Vial) 5 mg IV Q4 PRN; Protocol PRN Reason: for sustained HR>120 Stop: 12/15/21 11:59 Miscellaneous (Carbohydrates For Hypoglycemia ) 15 - 30 gm PO UD PRN PRN Reason: Hypoglycemia Treatment Stop: 12/12/21 17:14 Miscellaneous Information (Daptomycin Consult Active) 1 ea N/A UD PRN PRN Reason: Consult Stop: 12/12/21 14:12 Miscellaneous Information (Pharmacy Glycemic Mgmt Consult) 1 ea N/A UD PRN PRN Reason: Consult Stop: 12/12/21 16:54 Oxycodone/Acetaminophen (Oxycodone/Acetaminophen 5mg/325mg Tab) 1 - 2 tab PO Q4H PRN PRN Reason: Moderate Pain Stop: 11/28/21 12:41 PG Care Time/CCT Total # of Minutes Spent Total Time Spent with Patient: Total time spent is greater than 50% in coordination of care (as documented) at patient's floor/unit and/or counseling patient: Coding Level of Care Code 12063 Initial Inpt Care Lvl 3 Diagnoses Atrial fibrillation with rapid ventricular response I48.91 Pulmonary arterial hypertension I27.21 Dyslipidemia E78.5 Hypotension I95.9 Dyspnea on exertion R06.00 Anemia D64.9 Preop cardiovascular exam Z01.810
[2021-11-15] MEDS ORDERED: STAT IV Infusion **Titration per Protocol STA (12:28)
[2021-11-15] MEDS ORDERED: 0.2 MICRON FILTER SET 1 EA IV ONE (12:28)
[2021-11-15] MEDS ORDERED: AMIODARONE IV BOLUS & DRIP IV STA (12:28)
[2021-11-15] MEDS ORDERED: AMIODARONE / D5W 150 MG/100 ML BAG IV STA (12:28)
[2021-11-15] MEDS ORDERED: AMIODARONE / D5W 360 MG/200 ML BAG IV ONE (12:45)
--- NOTE | 2021-11-15 13:15 | Hospitalist Progress Note ---
Date of Service November 15, 2021 Assessment & Plan (1) Osteomyelitis: Plan: 71 yo M w/ PMH of CKD stage IV, uncontrolled diabetes mellitus with peripheral neuropathy, hypertension, SUKHWINDER, and HLD presented 11/12 to our ED at referral of PCP for evaluation of SOB. Patient main concern was shortness of breath which was present for 5 days prior to admission however he was not aware of his left foot infection complicated with necrotic tissue. Pt does have peripheral neuro sabina and states no sensation below his knees. He is being managed for the following: (1) Diabetic foot ulcer with cellulitis with acute osteomyelitis of left foot with left foot wound clx growing Citrobacter koseri and GNB - Afebrile, hemodynamically stable, exam with necrotic tissue involving the left fourth and fifth toe and plantar surface of the left foot. - WBC 25K on admission and improved, ESR and CRP elevated, no signs or symptoms of sepsis - LLE Doppler negative for DVT - LLE arterial duplex positive for hemodynamically significant stenosis in the distal anterior tibial artery and dorsalis pedis artery. - MRI foot and ankle 11/13 shows soft tissues ulcer of lateral forefoot with cellulitis with OM of fifth metatarsal head and phalanges with soft tissue gas of forefoot ?secondary to direct extension from soft tissue ulcer vs necrotizing fascitis; tenosynovitis of extensor digitorum - Currently on IV Dapto and cefepime pending final clx results and ID evaluation - Seen by ortho- recommendations noted- plan for surgery tomorrow, okay per vascular surgery to proceed. (2) Atrial fibrillation with RVR, new onset- went into Afib with RVR this morning, asymptomatic, HR in 100s-140s. On toprol. BP now low but asymptomatic. Seen by cardiology- started on amiodarone drip. Recommended heparin drip- will hold tomorrow at 4 am for surgery. Resume after surgery when okay per surgical team. (3) EARLENE on Chronic renal insufficiency, stage IV (severe), now ESRD - Now oliguric, azotemic and acidemic. Permacath placed today and plan for HD today per nephro - Creatinine 7.18 (baseline ~ 4.0) at presentation, now at 6.59 - Losartan and furosemide on hold. Hold nephrotoxics, ABx dosing per pharmacy based on renal function (4) Hypoxia: CXR and chest clear, stable on 2 L of NC, wean down as tolerated, continue incentive spirometer. S/p 2 U of PRBC transfusion. Anemia and decon ditioning likely contributing. (5) Anemia of CKD: Hgb 7.5 on presentation (baseline ~ 10.0) and s/p 2 U of PRBC, now Hb >8. Check intermittently, transfuse as needed. Aranesp therapy per nephro. FOBT pending (6) Diabetes mellitus, type 2: Hgb A1c 7.8 10/2021; diabetic management per pharmacy (7) Hypothyroidism: Continue levothyroxine (8) Pulmonary arterial hypertension: Appears euvolemic, hold furosemide due to EARLENE (9) Hypertension- stable, continue norvasc and toprol with hold parameters 10) Peripheral artery disease LLE- LLE arterial duplex with hemodynamically significant stenosis of distal ant tibial artery and dorsalis pedis artery; Seen by vascular surgery- no intervention needed and can proceed with ortho surgery. DVT prophylaxis: Heparin drip for afib with RVR Dispo: PCU for amiodarone drip and telemetry. Plan for foot surgery tomorrow. HD today. IV antibiotics Admission and Anticipated Discharge Date Admission Date: November 12, 2021 Subjective Seen and examined at bedside. Feels okay. No new changes. Went into atrial fibrillation with RVR this morning but asymptomatic- no chest tightness, palpitations, lightheadedness, dizziness. Breathing about the same. No bleeding. No fever, chills, nausea, vomiting. Physical Exam Physical Exam: General: Lying comfortably in bed, not in distress, on 2 L NC HEENT: EOMI, PJ, MMM Chest: Right sided permacath. Clear breath sounds bilaterally, no wheezes or crackles CVS: Regular rate and rhythm, normal heart sounds, no murmur Abdomen: Soft, non tender, not distended, normal bowel sounds Neuro: Awake, alert, oriented, conversing well, non focal Extremities: Feet covered with dressing, malodorous Results & Data Results & Data ([facility]) Vital Signs (Past 12 Hours) Vital Signs Temp Pulse Pulse Pulse Resp BP Pulse Ox 11/15/21 10:07 120 H 24 86/60 L 94 11/15/21 08:48 36.9 C 127 H 24 98/62 L 93 11/15/21 08:30 119 H 28 H 108/71 100 11/15/21 08:25 118 H 28 H 110/70 99 11/15/21 08:20 120 H 28 H 108/66 99 11/15/21 08:15 117 H 28 H 101/73 99 11/15/21 08:10 109 H 28 H 118/68 100 11/15/21 08:05 123 H 28 H 117/68 100 11/15/21 08:00 119 H 26 H 122/78 98 11/15/21 07:37 37 C 118 H 20 134/87 95 11/15/21 03:18 36.8 C 88 18 139/93 94 Laboratory Results Short CBC 11/15/21 Range/Units 09:33 WBC 22.93 H (4.8-10.8) K/uL Hgb 8.7 L (14.0-18.0) g/dL Hct 25.6 L (42-52) % Plt Count 291 (130-400) K/uL BMP 11/15/21 09:33 Sodium 138 Potassium 4.1 Chloride 102 Carbon Dioxide 16 L BUN 127 H Creatinine 6.43 H* Glucose 170 H Calcium 8.5 Medications Administered Current Inpatient Medications Acetaminophen (Acetaminophen 325 Mg Tab) 650 mg PO Q4H PRN PRN Reason: Pain or Fever Stop: 12/12/21 14:38 Allopurinol (Allopurinol 100 Mg Tab) 50 mg PO DAILY BERTHA Stop: 12/13/21 08:59 Last Admin: 11/15/21 10:11 Dose: 50 mg Documented by: Amlodipine Besylate (Amlodipine Besylate 5 Mg Tab) 5 mg PO DAILY BERTHA Stop: 12/13/21 08:59 Last Admin: 11/15/21 10:17 Dose: 5 mg Documented by: Aspirin (Aspirin 81 Mg Ectab) 81 mg PO DAILY BERTHA Stop: 12/13/21 08:59 Last Admin: 11/15/21 10:18 Dose: 81 mg Documented by: Atorvastatin Calcium (Atorvastatin 40 Mg Tab) 40 mg PO DAILY BERTHA Stop: 12/13/21 08:59 Brimonidine Tartrate (Brimonidine Tartrate-P 0.15% 5 Ml Btl) 1 drops OPB BID BERTHA Stop: 12/12/21 20:59 Last Admin: 11/15/21 10:19 Dose: 1 drops Documented by: Calcitriol (Calcitriol 0.25 Mcg Capsule) 0.5 mcg PO BID [facility] Stop: 12/12/21 20:59 Last Admin: 11/15/21 10:18 Dose: 0.5 mcg Documented by: Clonidine HCl (Clonidine Hcl 0.1 Mg Tab) 0.1 mg PO BID [facility] Stop: 12/12/21 20:59 Last Admin: 11/15/21 10:18 Dose: 0.1 mg Documented by: Cyanocobalamin (Cyanocobalamin (B-12) 100 Mcg Tablet) 100 mcg PO QAM [facility] Stop: 11/27/21 09:01 Last Admin: 11/15/21 10:19 Dose: 100 mcg Documented by: Dextrose (Dextrose 50% 50 Ml Syringe) 25 - 50 ml IV UD PRN; Protocol PRN Reason: Hypoglycemia Protocol Stop: 12/12/21 17:14 Folic Acid (Folic Acid 1 Mg Tab) 1 mg PO [facility] Stop: 12/12/21 09:01 Last Admin: 11/15/21 10:17 Dose: 1 mg Documented by: Glucagon (Glucagon For Inj 1 Mg Vial) 1 mg IM UD PRN; Protocol PRN Reason: Hypoglycemia Protocol Stop: 12/12/21 17:14 Glucose (Glucose 40% Gel 15 Gm Tube) 15 - 30 gm PO UD PRN; Protocol PRN Reason: Hypoglycemia Protocol Stop: 12/12/21 17:14 Glucose (Glucose 10 Tabs/Tube) 4 - 8 tabs PO UD PRN; Protocol PRN Reason: Hypoglycemia Protocol Stop: 12/12/21 17:14 Heparin Sodium/Dextrose (Heparin Iv Adult Wt-Based Low-Dose *No* Bolus Protocol) 1 ea IV NOW STA; Protocol Stop: 11/15/21 13:22 Cefepime HCl 2,000 mg/ Syringe 20 mls @ 5 mls/min IV Q24H BERTHA; Protocol Stop: 12/25/21 15:59 Last Admin: 11/14/21 16:26 Dose: 5 mls/min Documented by: Daptomycin 550 mg/ Syringe 11 mls @ 5.75 mls/min IV Q48H BERTHA; Protocol Stop: 12/26/21 15:59 Last Admin: 11/14/21 16:26 Dose: 5.75 mls/min Documented by: Amiodarone HCl/Dextrose (Nexterone / D5w) 360 mg in 200 mls @ 33.333 mls/hr IV ONE ONE Stop: 11/15/21 18:44 Amiodarone HCl/Dextrose (Nexterone / D5w) 360 mg in 200 mls @ 16.667 mls/hr IV .Q12H [facility] Stop: 12/15/21 18:59 Heparin Sodium/Dextrose (Heparin Sodium/Dextrose) 25,000 units in 500 mls @ 0.02 mls/hr IV .Q24H [facility]; Protocol Stop: 12/15/21 13:44 Insulin Aspart (Insulin Aspart Per Unit) 0 units SC ACHS [facility]; Protocol Stop: 12/12/21 17:29 Last Admin: 11/15/21 10:09 Dose: 4 units Documented by: Insulin Glargine (Insulin Glargine Solostar 100 Units/Ml 3 Ml Pen) 0 units SC [facility]; Protocol Stop: 12/13/21 20:59 Last Admin: 11/14/21 21:16 Dose: 15 units Documented by: Latanoprost (Latanoprost 0.005% Op Soln 2.5 Ml Btl) 1 drops OP [facility] Stop: 12/12/21 20:59 Last Admin: 11/14/21 21:14 Dose: 1 drops Documented by: Levothyroxine Sodium (Levothyroxine Sodium 50 Mcg Tablet) [facility] Stop: 12/13/21 06:29 Last Admin: 11/15/21 06:02 Dose: 50 mcg Documented by: Metoprolol Succinate (Metoprolol Succ 50mg Ext Rel Tab) 100 mg PO QAM [facility] Stop: 12/13/21 08:59 Last Admin: 11/15/21 10:18 Dose: 100 mg Documented by: Metoprolol Tartrate (Metoprolol Tartrate 1 Mg/Ml Vial) 5 mg IV Q4 PRN; Protocol PRN Reason: for sustained HR>120 Stop: 12/15/21 11:59 Miscellaneous (Carbohydrates For Hypoglycemia ) 15 - 30 gm PO UD PRN PRN Reason: Hypoglycemia Treatment Stop: 12/12/21 17:14 Miscellaneous Information (Daptomycin Consult Active) 1 ea N/A UD PRN PRN Reason: Consult Stop: 12/12/21 14:12 Miscellaneous Information (Pharmacy Glycemic Mgmt Consult) 1 ea N/A UD PRN PRN Reason: Consult Stop: 12/12/21 16:54 Oxycodone/Acetaminophen (Oxycodone/Acetaminophen 5mg/325mg Tab) 1 - 2 tab PO Q4H PRN PRN Reason: Moderate Pain Stop: 11/28/21 12:41 (1) Osteomyelitis Laterality: unspecified laterality Osteomyelitis location: foot Osteomyelitis type: unspecified type Qualified Code(s): M86.9 - Osteomyelitis, unspecified
[2021-11-15] MEDS ORDERED: HEPARIN SODIUM/DEXTROSE 25,000 UNITS/500 ML BAG IV SCH (13:45)
--- NOTE | 2021-11-15 14:56 | Pharmacy Report ---
Pharmacy Glycemic Short Note 2 - Date of Service November 15, 2021 - Glycemic Short BSG Results (Last 24 hours): 11/14/21 11/14/21 11/15/21 16:31 19:57 07:28 Glucose POC Glucose 180 H 212 H 178 H 11/15/21 11/15/21 09:33 11:30 Glucose 170 H POC Glucose 205 H OUTPATIENT ANTIDIABETIC REGIMEN: * Lantus 50 units SC PM * HbA1c: 7.8% (11/13/21) ASSESSMENT: 11/15: * Patient received total of 29 units of insulin yesterday; 15 units basal and 14 units bolus. * BSGs yesterday were [phone]. Fasting BSG today was 178 mg/dl. Basal insulin dose scale increased today at HS. * Novolog CF and CR also tightened this AM. 11/13 * BSGs have been very tightly controlled with no insulin so far this admission, ranging 71-94 mg/dL * Patient is now accepting of HD if needed, per nephrology notes. Will follow. * First documented meal at lunchtime (40 g of carbs), will initiate Lantus scale this evening to provide basal if needed now that patient is eating * Continues on daptomycin/cefepime for treatment of diabetic foot infection/osteomyelitis of left foot * Orthopedics/vascular surgery consulted, patient likely to require significant debridement 11/12 * 71 yo admitted secondary to osteomyelitis. Pharmacy has been consulted to assist with inpatient glycemic management. * Ordered a type 2 diabetic diet. Currently on Daptomycin and Cefepime. SCr at 7.18 mg/dL (patient is ESRD but refuses HD). * Did take 50 units of Lantus evening prior to admission. * Will hold Lantus for now given BSGs. * Start Novolog only. Target BSG of 110-140 mg/dL to help with infection and promote wound healing. PLAN FOR INPATIENT GLYCEMIC CONTROL: * Basal insulin * Lantus 15-25 units dose scale SC HS based on BSG (see EHR for details) * Bolus insulin * NovoLog per scale ACHS or Q6hrs while NPO * Goal Range: Low 110 mg/dL - High 140 mg/dL * Correction Factor: 20 mg/dL/unit * Nutritional / Prandial insulin per carb ratio of 1 unit per 8 grams CHO consumed
[2021-11-15] MEDS ORDERED: PERFLUTREN LIPID MICROSPHERE (DEFINITY) IV ONE (15:28)
[2021-11-15 15:50] LABS: INR 1.3 (0.9-1.1); Partial Thromboplastin Ratio 1.3; Partial Thromboplastin Time 34.5 Seconds (21.0-31.0); Prothrombin Time 13.8 Seconds (9.0-12.0)
[2021-11-15] MEDS: CEFEPIME 2,000 MG in SYRINGE 0 ML IV SCH (16:30)
--- NOTE | 2021-11-15 16:44 | XCELERA ---
[id number]
[2021-11-15] MEDS: Heparin IV Adult Wt-Based Low-Dose *NO* Bolus Protocol IV SCH ×3 (18:45→18:50)
[2021-11-15] MEDS: AMIODARONE / D5W 360 MG/200 ML BAG IV SCH (19:55)
[2021-11-15] MEDS: INSULIN GLARGINE SOLOSTAR 100 UNITS/ML 3 ML PEN SC SCH (20:16)
[2021-11-15] MEDS: LATANOPROST 0.005% OP SOLN 2.5 ML BTL OP SCH (20:18)
--- NOTE | 2021-11-15 22:07 | Electrocardiogram Report ---
Test Reason : Blood Pressure : / mmHG Vent. Rate : 125 BPM Atrial Rate : 127 BPM P-R Int : 000 ms QRS Dur : 094 ms QT Int : 312 ms P-R-T Axes : 000 -21 057 degrees QTc Int : 450 ms Atrial fibrillation with rapid ventricular response with premature ventricular or aberrantly conducte d complexes Abnormal ECG When compared with ECG of 12-NOV-2021 14:41, Atrial fibrillation has replaced Sinus rhythm Confirmed by Daniel Galvez ([id number]) on 11/15/2021 10:06:49 PM Referred By: Pedro Jon Confirmed By:Daniel Galvez
[2021-11-16 00:23] LABS: Partial Thromboplastin Ratio 1.7
[2021-11-16 00:27] LABS: Partial Thromboplastin Time 47.6 Seconds (21.0-31.0)
[2021-11-16] MEDS ORDERED: HEPARIN SODIUM/DEXTROSE 25,000 UNITS/500 ML BAG IV SCH (04:00)
[2021-11-16] MEDS: LEVOTHYROXINE SODIUM 50 MCG TABLET PO SCH (06:25)
[2021-11-16 07:45] LABS: Hematocrit (blood only) 24.4 % (42-52); Hemoglobin 8.1 g/dL (14.0-18.0); Mean Corpuscular Volume 85.6 fL (80-100); Red Blood Count 2.85 M/uL (4.7-6.1); White Blood Count 20.53 K/uL (4.8-10.8)
[2021-11-16 07:46] LABS: Mean Corpuscular Hemoglobin 28.4 pg (25-34); Mean Corpuscular Hgb Conc 33.2 g/dL (32-36); Nucleated RBC # (auto) 0.03 K/uL (0-0); Nucleated RBC % (auto) 0.2 %; Platelet Count 251 K/uL (130-400); RDW Coefficient of Variation 16.6 % (11.5-14.5); RDW Standard Deviation 52.5 fL (36.4-46.3)
[2021-11-16] MEDS: AMIODARONE / D5W 360 MG/200 ML BAG IV SCH (07:56)
[2021-11-16] MEDS: INSULIN ASPART PER UNIT SC SCH ×4 (08:06→20:41)
[2021-11-16 08:23] LABS: BUN Creatinine Ratio 19.5 (10-20); Calcium 8.3 mg/dl (8.5-10.1); Creatinine Clr Calc Pharmacy 17.8 ml/min; Est GFR (African American) 12.3 ml/min; Est GFR (Non-African American) 10.6 ml/min; Potassium 3.6 mmol/L (3.5-5.1)
--- NOTE | 2021-11-16 08:41 | Nephrology Progress Note ---
Date of Service November 16, 2021 Assessment & Plan (1) Acute kidney injury: Plan: * EARLENE due to infection/inflammation in the setting of ARB therapy * Losartan has been stopped * Urinalysis negative for blood. Urine microscopy negative for cellular casts * 11/12/21 renal US: R kidney 10.8 cm, L kidney 11.7 cm. No hydronephrosis, calculi or mass * Will schedule next HD for am, heparin free. Orders have been entered into EMR and HD RN notified * Monitor PRP (2) ESRD (end stage renal disease): Plan: * Baseline Cr 4.2 - 4.4 w/ EGFR 11 - 13 cc/min. Renal impairment due to combination AODM, vascular disease, obesity * Previously declined AVF creation of dialysis preparation due to fecal incontinence (3) Anemia: Plan: * h/o CKD associated anemia on Aranesp therapy * Given necrotic foot ulcer, recommend blood transfusion. Patient likely will not respond to ROBERTH due to inflammation * Transfused 1 U PRBC 11/12/21 (4) Diabetic foot ulcer associated with type 2 diabetes mellitus: Plan: * Antibiotic therapy as per primary service. Recommend consultation w/ Pharmacy to dose appropriately for ESRD * 11/06 CARLOS ENRIQUE: Hemodynamically significant stenosis is seen most pronounced in the distal anterior tibial artery and dorsalis pedis artery * Await surgical evaluation. Patient may require BKA. Surgery planned for 11/16/21 (5) Fecal incontinence: Plan: * Await GI recommendations Admission and Anticipated Discharge Date Admission Date: November 12, 2021 Subjective Mr. Arias was evaluated in his hospital room this morning. He is breathing comfortably flat in bed on O2 at 2L/min NC. He is awaiting surgery Review of Systems Constitutional: no fever Eyes: no problem reported Ear, Nose, Mouth, Throat: no problem reported Respiratory: no cough and no dyspnea Cardiovascular: + edema; no chest pain Gastrointestinal: + diarrhea/loose stools; no abdominal pain Genitourinary: no dysuria, no urinary hesitancy or no hematuria Integumentary: + skin ulcer Neurologic: no confusion Physical Exam Constitutional: + morbidly obese Eyes: PERRL, conjunctivae normal, anicteric sclerae ENMT: external ear and nose normal, oropharynx normal Neck: trachea midline, no thyromegaly Respiratory: normal respiratory effort, lungs clear to auscultation Cardiovascular: Rate/Rhythm: regular rate and regular rhythm Extremities: + edema Gastrointestinal (Abdomen): normal bowel sounds, soft, nontender, no hepatosplenomegaly Neurologic: awake; not confused Results & Data ([facility]) Vital Signs (Past 12 Hours) Vital Signs Temp Pulse Pulse Pulse Resp BP BP 11/16/21 07:05 36.9 C 106 H 18 119/67 11/16/21 05:01 37.0 C 113 H 22 129/67 11/15/21 23:40 36.4 C L 105 H 26 H 11/15/21 23:00 77 98/67 L 11/15/21 22:40 70 105/65 11/15/21 22:20 88 108/73 11/15/21 22:00 77 103/59 L 11/15/21 21:40 78 91/65 L 11/15/21 21:20 96 H 95/55 L 11/15/21 21:07 97 H 111/94 11/15/21 21:02 37 C 83 BP Pulse Ox 11/16/21 07:05 93 11/16/21 05:01 94 11/15/21 23:40 126/71 96 11/15/21 23:00 11/15/21 22:40 11/15/21 22:20 11/15/21 22:00 11/15/21 21:40 11/15/21 21:20 11/15/21 21:07 11/15/21 21:02 Laboratory Results Laboratory Tests 11/13/21 11/16/21 11/16/21 21:56 06:43 06:43 WBC 20.53 H Hgb 8.1 L Hct 24.4 L Plt Count 251 Sodium 137 Potassium 3.6 Chloride 101 Carbon Dioxide 21 BUN 100 H D Creatinine 5.12 H* D Glucose 140 H Urine Color Yellow Urine Appearance Cloudy A Urine pH 5.0 Ur Specific [place] 1.016 Urine Protein 1+ H Urine Glucose (UA) Negative Urine Blood Negative Urine Nitrite Negative Urine RBC (Auto) 0-4 U Hyaline Cast (Auto) 1-5 PG Care Time/CCT Total # of Minutes Spent Total Time Spent with Patient: Total time spent is greater than 50% in coordination of care (as documented) at patient's floor/unit and/or counseling patient: Coding Level of Care Code 77359 Subseq Hosp Care Lvl 3 Diagnoses Acute kidney injury N17.9 ESRD (end stage renal disease) N18.6 Anemia D64.9 Diabetic foot ulcer associated with type 2 diabetes mellitus E11.621; L97.509 Fecal incontinence R15.9
[2021-11-16] MEDS: CALCITRIOL 0.25 MCG CAPSULE PO SCH ×2 (10:08→20:24)
[2021-11-16] MEDS: CYANOCOBALAMIN (B-12) 100 MCG TABLET PO SCH (10:08)
[2021-11-16] MEDS: ASPIRIN 81 MG ECTAB PO SCH (10:08)
[2021-11-16] MEDS: FOLIC ACID 1 MG TAB PO SCH (10:08)
[2021-11-16] MEDS: allopurinoL 100 MG TAB PO SCH (10:08)
[2021-11-16] MEDS: ATORVASTATIN 40 MG TAB PO SCH (10:08)
[2021-11-16] MEDS: METOPROLOL SUCC 50MG EXT REL TAB PO SCH (10:13)
[2021-11-16] MEDS: cloNIDine HCL 0.1 MG TAB PO SCH ×2 (10:14→20:24)
[2021-11-16] MEDS: BRIMONIDINE TARTRATE-P 0.15% 5 ML BTL OPB SCH ×2 (10:14→20:24)
--- NOTE | 2021-11-16 11:24 | Cardiology Progress Note ---
Date of Service November 16, 2021 Assessment & Plan (1) Atrial fibrillation with rapid ventricular response: (2) Dyspnea on exertion: (3) Preop cardiovascular exam: (4) Hypotension: (5) Anemia: (6) Dyslipidemia: Plan: ASSESSMENT/PLAN: 1. AFib with RVR: Rhythm control strategy recommended yesterday given hypotension, need for dialysis, and plans for surgery. He has been initiated on IV amiodarone, but remains in atrial fibrillation. His rate is reasonably well controlled and he remains asymptomatic. Recommend continuing amiodarone with the hopes of converting him to sinus rhythm, but would also recommend initiating heparin drip for anticoagulation within the 48 hour window of him developing a fib. He will be undergoing surgery today, and would recommend staring heparin drip as soon as possible after surgery, once safe from a bleeding standpoint. 2. Hypotension: BP has improved and patient currently normotensive. Continue to hold amlodipine. 3. Dyspnea on exertion:Likely multifactorial. Difficult to know his volume status based on exam. Volume will be managed by Nephrology in the setting of hemodialysis. Ischemic evaluation is not warranted at this time. 4. Anemia: As per primary hospitalist service. 5. Dyslipidemia: Continue statin therapy. 6. Peripheral arterial disease: As per vascular. 7. Pulmonary hypertension:Mild by echo this admission, which was improved compared to last study in 2020. 8. Preoperative cardiac assessment: Would assume high risk given exertional dyspnea, poor functional status, and other comorbidities. May have underlying CAD given documented atherosclerosis in peripheral arteries. Given his prese ntation as noted above and osteomyelitis, would not delay surgery for ischemic evaluation. Cardiology will continue to follow. Admission and Anticipated Discharge Date Admission Date: November 12, 2021 Subjective Patient is currently resting comfortably in bed. He states that he his very tired and fatigued. He notes shortness of breath with any exertion, but he denies shortness of breath at rest or othopnea. He denies chest pain, palpitations, syncope, or near-syncope. He will be undergoing left below the knee amputation today with Dr. Jay. Review of Systems Review of Systems: All systems reviewed & are unremarkable except as noted in Subjective Physical Exam Physical Exam: Constitutional: Alert, oriented, in no acute distress HEENT: Head is atraumatic and normocephalic. EOMs intact. Sclera non-icteric. Face is symmetric. No perioral cyanosis. Mucous membranes moist Neck: Supple, no JVD Pulmonary: Normal respiratory effort, clear to auscultation throughout Cardiac: Irregularly irregular, normal S1 and S2, no gallops, no rubs, no murmurs Extremities: Left leg with diffuse erythema and 1+ edema. Distal left left leg is bandaged. No clubbing or cyanosis. 2+ radial pulses Abdomen: Obese. Normal bowel sounds, soft, non-tender, no abdominal masses palpated Neurological: Oriented to person, place, and time Results & Data ([facility]) Vital Signs (Past 12 Hours) Vital Signs Temp Pulse Pulse Resp BP BP Pulse Ox 11/16/21 07:05 98.4 F 106 H 18 119/67 93 11/16/21 05:01 98.6 F 113 H 22 129/67 94 11/15/21 23:40 97.5 F L 105 H 26 H 126/71 96 11/15/21 23:20 98.2 F 98 H 106/79 Diagnostic Findings Telemetry: Atrial fibrillation with a rate in the 90s-100s. Echo: Normal LV size, wall motion, and systolic function. EF 55-60%. Mild LVH. Mild left atrial dilation. Sclerotic aortic valve with mild regurgitation. Mild MR. Mild pulmonary hypertension; estimated RVSP 40-45 mmHg. Compared with study on 04/20/20, rhythm is now a fib and RVSP has improved. PG Care Time/CCT Total # of Minutes Spent Total Time Spent with Patient: Total time spent is greater than 50% in coordination of care (as documented) at patient's floor/unit and/or counseling patient: Coding Level of Care Code 20016 Subseq Hosp Care Lvl 3 Diagnoses Atrial fibrillation with rapid ventricular response I48.91 Dyspnea on exertion R06.00 Preop cardiovascular exam Z01.810 Hypotension I95.9 Anemia D64.9 Dyslipidemia E78.5
--- NOTE | 2021-11-16 11:43 | XRay Report ---
XR chest 1V portable HISTORY: Shortness of breath. Congestive heart failure. COMPARISON: Chest 11/12/2021. FINDINGS: There are low lung volumes. The heart remains enlarged. A right jugular catheter which term inates at the SVC. No pneumothorax. Small right pleural effusion and patchy right basilar airspace op acities. This is new compared to the prior study. There is chronic elevation of the right hemidiaphra gm. No evidence for pulmonary There is mild central pulmonary vascular congestion without overt edema . IMPRESSION: 1. Cardiomegaly with mild central pulmonary vascular congestion without overt edema. 2. Interval development of small right pleural effusion and right basilar airspace opacities. This ma y represent a pneumonia and could be secondary to aspiration. 3. Right jugular central venous catheter terminates at the SVC. No pneumothorax. ACT 112: Negative or not required by law. Electronically signed by: Al Yost M.D. 11/16/2021 11:42 AM
[2021-11-16] MEDS ORDERED: ONDANSETRON INJ 2 MG/ML 2 ML VIAL IV ONE (12:35)
[2021-11-16] MEDS ORDERED: VANCOMYCIN CONSULT ACTIVE PRN (12:40)
[2021-11-16] MEDS ORDERED: VANCOMYCIN HCL 2,000 MG in SODIUM CHLORIDE 0.9% 500 ML IV ONE (12:45)
[2021-11-16] MEDS: oxyCODONE/ACETAMINOPHEN 5mg/325mg TAB PO PRN (12:47)
--- NOTE | 2021-11-16 12:51 | Hospitalist Progress Note ---
Date of Service November 16, 2021 Assessment & Plan (1) Osteomyelitis: Plan: 71 yo M w/ PMH of CKD stage IV, uncontrolled diabetes mellitus with peripheral neuropathy, hypertension, SUKHWINDER, and HLD presented 11/12 to our ED at referral of PCP for evaluation of SOB. Patient main concern was shortness of breath which was present for 5 days prior to admission however he was not aware of his left foot infection complicated with necrotic tissue. Pt does have peripheral neurop athy and states no sensation below his knees. He is being managed for the following: (1) Diabetic foot ulcer with cellulitis with acute osteomyelitis of left foot with left foot wound clx growing Citrobacter koseri and GNB - Afebrile, hemodynamically stable, exam with necrotic tissue involving the left fourth and fifth toe and plantar surface of the left foot. - WBC 25K on admission and improved, ESR and CRP elevated, no signs or symptoms of sepsis - LLE Doppler negative for DVT - LLE arterial duplex positive for hemodynamically significant stenosis in the distal anterior tibial artery and dorsalis pedis artery. - MRI foot and ankle 11/13 shows soft tissues ulcer of lateral forefoot with cellulitis with OM of fifth metatarsal head and phalanges with soft tissue gas of forefoot ?secondary to direct extension from soft tissue ulcer vs necrotizing fascitis; tenosynovitis of extensor digitorum - Currently on IV Dapto and cefepime- Seen by ID today- final recommendations awaited - Seen by ortho- plan for left BKA today- npo for the same (2) Atrial fibrillation with RVR, new onset- since 11/15/21, still in rate controlled Afib, asymptomatic. TTE reviewed, no new change. Seen by cardio- Remains on amiodarone drip. He was on heparin drip which has been held for surgery today. Will resume after surgery when okay from bleeding perspective (3) EARLENE on Chronic renal insufficiency, stage IV (severe), now ESRD - Now oliguric, azotemic and acidemic. Permacath placed 11/15, had 1st HD 11/15, next tomorrow on 11/17 per nephro - Losartan and furosemide on hold. Hold nephrotoxics, ABx dosing per pharmacy based on renal function (4) Hypoxia: CXR and chest clear, stable on 2 L of NC, wean down as tolerated, continue incentive spirometer. S/p 2 U of PRBC transfusion. Anemia and deconditioning likely contributing. Avoid aggressive IVF given his ESRD (5) Anemia of CKD: Hgb 7.5 on presentation (baseline ~ 10.0) and s/p 2 U of PRBC, now Hb >8. Check intermittently, transfuse as needed. Aranesp therapy per nephro. Watch for bleeding while on anticoagulation (6) Diabetes mellitus, type 2: Hgb A1c 7.8 10/2021; diabetic management per pharmacy (7) Hypothyroidism: Continue levothyroxine (8) Pulmonary arterial hypertension: Appears euvolemic, hold furosemide due to EARLENE (9) Hypertension- stable, continue norvasc and toprol with hold parameters 10) Peripheral artery disease LLE- LLE arterial duplex with hemodynamically significant stenosis of distal ant tibial artery and dorsalis pedis artery; Seen by vascular surgery- no intervention needed and can proceed with ortho surgery. DVT prophylaxis: Heparin drip on hold for surgery today- resume after surgery when safe from bleeding perspective Dispo: PCU for amiodarone drip and telemetry. Left BKA today, on IV antibiotics for left foot osteomyelitis Admission and Anticipated Discharge Date Admission Date: November 12, 2021 Subjective Seen and examined at bedside. He is frustrated and disappointed that he does not know what is going on with his care and that no one communicates. Explained everything in detail. Then he was frustrated that we do not have a time for his OR yet and states he is getting overwhelmed. Empathetic listening done and explanation of his current medical condition done at bedside. Physical Exam Physical Exam: General: Lying in bed, not in distress, on 2 L NC HEENT: EOMI, PJ, MMM Chest: Right sided permacath. Clear breath sounds bilaterally, no wheezes or crackles CVS: Irregular rate and rhythm, normal heart sounds, no murmur Abdomen: Soft, non tender, not distended, normal bowel sounds Neuro: Awake, alert, oriented, conversing well, non focal Extremities: Right great toe amputation; Left 3rd-5th toe gangrenous with malodor, left foot cellulitis Results & Data Results & Data ([facility]) Vital Signs (Past 12 Hours) Vital Signs Temp Pulse Pulse Pulse Resp BP Pulse Ox 11/16/21 12:15 91 H 15 119/75 94 11/16/21 07:05 36.9 C 106 H 18 119/67 93 11/16/21 06:15 89 11/16/21 05:01 37.0 C 113 H 22 129/67 94 Laboratory Results Short CBC 11/16/21 Range/Units 06:43 WBC 20.53 H (4.8-10.8) K/uL Hgb 8.1 L (14.0-18.0) g/dL Hct 24.4 L (42-52) % Plt Count 251 (130-400) K/uL BMP 11/16/21 06:43 Sodium 137 Potassium 3.6 Chloride 101 Carbon Dioxide 21 BUN 100 H D Creatinine 5.12 H* D Glucose 140 H Calcium 8.3 L Medications Administered Current Inpatient Medications Acetaminophen (Acetaminophen 325 Mg Tab) 650 mg PO Q4H PRN PRN Reason: Pain or Fever Stop: 12/12/21 14:38 Allopurinol (Allopurinol 100 Mg Tab) 50 mg PO DAILY BERTHA Stop: 12/13/21 08:59 Last Admin: 11/16/21 10:08 Dose: Not Given Documented by: Amlodipine Besylate (Amlodipine Besylate 5 Mg Tab) 5 mg PO DAILY BERTHA Stop: 12/13/21 08:59 Last Admin: 11/15/21 10:17 Dose: 5 mg Documented by: Aspirin (Aspirin 81 Mg Ectab) 81 mg PO DAILY BERTHA Stop: 12/13/21 08:59 Last Admin: 11/16/21 10:08 Dose: Not Given Documented by: Atorvastatin Calcium (Atorvastatin 40 Mg Tab) 40 mg PO DAILY BERTHA Stop: 12/13/21 08:59 Last Admin: 11/16/21 10:08 Dose: Not Given Documented by: Brimonidine Tartrate (Brimonidine Tartrate-P 0.15% 5 Ml Btl) 1 drops OPB BID BERTHA Stop: 12/12/21 20:59 Last Admin: 11/16/21 10:14 Dose: 1 drops Documented by: Calcitriol (Calcitriol 0.25 Mcg Capsule) 0.5 mcg PO BID BERTHA Stop: 12/12/21 20:59 Last Admin: 11/16/21 10:08 Dose: Not Given Documented by: Clonidine HCl (Clonidine Hcl 0.1 Mg Tab) 0.1 mg PO BID BERTHA Stop: 12/12/21 20:59 Last Admin: 11/16/21 10:14 Dose: 0.1 mg Documented by: Cyanocobalamin (Cyanocobalamin (B-12) 100 Mcg Tablet) 100 mcg PO QAM [facility] Stop: 11/27/21 09:01 Last Admin: 11/16/21 10:08 Dose: Not Given Documented by: Dextrose (Dextrose 50% 50 Ml Syringe) 25 - 50 ml IV UD PRN; Protocol PRN Reason: Hypoglycemia Protocol Stop: 12/12/21 17:14 Folic Acid (Folic Acid 1 Mg Tab) [facility] [place] Stop: 12/12/21 09:01 Last Admin: 11/16/21 10:08 Dose: Not Given Documented by: Glucagon (Glucagon For Inj 1 Mg Vial) 1 mg IM UD PRN; Protocol PRN Reason: Hypoglycemia Protocol Stop: 12/12/21 17:14 Glucose (Glucose 40% Gel 15 Gm Tube) 15 - 30 gm PO UD PRN; Protocol PRN Reason: Hypoglycemia Protocol Stop: 12/12/21 17:14 Glucose (Glucose 10 Tabs/Tube) 4 - 8 tabs PO UD PRN; Protocol PRN Reason: Hypoglycemia Protocol Stop: 12/12/21 17:14 Cefepime HCl 2,000 mg/ Syringe 20 mls @ 5 mls/min IV Q24H [facility]; Protocol Stop: 12/25/21 15:59 Last Admin: 11/15/21 16:30 Dose: 5 mls/min Documented by: Amiodarone HCl/Dextrose (Nexterone / D5w) 360 mg in 200 mls @ 16.667 mls/hr IV .Q12H [facility] Stop: 12/15/21 18:59 Last Admin: 11/16/21 07:56 Dose: 0.5 mg/min, 16.7 mls/hr Documented by: Sodium Chloride (Nss 1000ml) 1,000 mls @ 0 mls/hr IV .Q0M PRN PRN Reason: For Hemodialysis Use ONLY Stop: 11/17/21 12:59 Vancomycin HCl 2,000 mg/ (Sodium Chloride) 540 mls @ 200 mls/hr IV NOW ONE Stop: 11/16/21 15:26 Insulin Aspart (Insulin Aspart Per Unit) 0 units SC [facility]; Protocol Stop: 12/12/21 17:29 Last Admin: 11/16/21 12:24 Dose: 1 units Documented by: Insulin Glargine (Insulin Glargine Solostar 100 Units/Ml 3 Ml Pen) 0 units SC HS BERTHA; Protocol Stop: 12/13/21 20:59 Last Admin: 11/15/21 20:16 Dose: 25 units Documented by: Latanoprost (Latanoprost 0.005% Op Soln 2.5 Ml Btl) 1 drops OP HS [facility] Stop: 12/12/21 20:59 Last Admin: 11/15/21 20:18 Dose: 1 drops Documented by: Levothyroxine Sodium (Levothyroxine Sodium 50 Mcg Tablet) 50 mcg PO DAILYBB [facility] Stop: 12/13/21 06:29 Last Admin: 11/16/21 06:25 Dose: 50 mcg Documented by: Metoprolol Succinate (Metoprolol Succ 50mg Ext Rel Tab) 100 mg PO QAM [facility] Stop: 12/13/21 08:59 Last Admin: 11/16/21 10:13 Dose: 100 mg Documented by: Metoprolol Tartrate (Metoprolol Tartrate 1 Mg/Ml Vial) 5 mg IV Q4 PRN; Protocol PRN Reason: for sustained HR>120 Stop: 12/15/21 11:59 Miscellaneous (Carbohydrates For Hypoglycemia ) 15 - 30 gm PO UD PRN PRN Reason: Hypoglycemia Treatment Stop: 12/12/21 17:14 Miscellaneous (No Heparin In Dialysis) 1 ea N/A ONE ONE Stop: 11/17/21 07:01 Miscellaneous Information (Pharmacy Glycemic Mgmt Consult) 1 ea N/A UD PRN PRN Reason: Consult Stop: 12/12/21 16:54 Miscellaneous Information (Vancomycin Consult Active) 1 ea N/A UD PRN PRN Reason: Consult Stop: 12/16/21 12:39 Oxycodone/Acetaminophen (Oxycodone/Acetaminophen 5mg/325mg Tab) 1 - 2 tab PO Q4H PRN PRN Reason: Moderate Pain Stop: 11/28/21 12:41 Last Admin: 11/16/21 12:47 Dose: 1 tab Documented by: (1) Osteomyelitis Laterality: unspecified laterality Osteomyelitis location: foot Osteomyelitis type: unspecified type Qualified Code(s): M86.9 - Osteomyelitis, unspecified
--- NOTE | 2021-11-16 12:54 | Pharmacy Report ---
Pharmacy Vanc [facility] Short Note - Date of Service November 16, 2021 - Assessment & Plan Assessment * 71 year old M initially receiving cefepime and dapto for osteomyelitis, now changed to cefepime and vanco per ID recommendation. Plan for BKA today. Antibiotic selection and duration will be dependent on OR cultures and margins - length of therapy and antibiotic selection dependent on such. * CKD IV at baseline, but initiation of HD required this admission - will dose vancomycin via level * Surface cultures with guillaume-sensitive Alcaligenes faecalis and Citrobacter koseri - current regimen appropriate. May be able to stop vancomycin if OR cultures today are similar. * Gram positive bacilli from 1/2 blood cultures from 4 days ago - likely contaminant Plan * Vancomycin 2000 mg IV x1 now * Random level with AM labs Pharmacy will continue to follow and will adjust dose/frequency as necessary. Thank you.
--- NOTE | 2021-11-16 14:49 | Pharmacy Report ---
Pharmacy Glycemic Short Note 2 - Date of Service November 16, 2021 - Glycemic Short BSG Results (Last 24 hours): 11/15/21 11/15/21 11/16/21 16:25 20:05 06:43 Glucose 140 H POC Glucose 153 H 246 H 11/16/21 11/16/21 07:33 11:25 Glucose POC Glucose 149 H 148 H OUTPATIENT ANTIDIABETIC REGIMEN: * Lantus 50 units SC PM * HbA1c: 7.8% (11/13/21) ASSESSMENT: 11/16: * Patient received total 46 units of insulin yesterday; 25 units of basal and 21 units bolus * BSGs yesterday were [phone] mg/dl. Fasting BSG today was 149 mg/dl. * Novolog parameters tightened further this AM. 11/15: * Patient received total of 29 units of insulin yesterday; 15 units basal and 14 units bolus. * BSGs yesterday were [phone]. Fasting BSG today was 178 mg/dl. Basal insulin dose scale increased today at HS. * Novolog CF and CR also tightened this AM. 11/13 * BSGs have been very tightly controlled with no insulin so far this admission, ranging 71-94 mg/dL * Patient is now accepting of HD if needed, per nephrology notes. Will follow. * First documented meal at lunchtime (40 g of carbs), will initiate Lantus scale this evening to provide basal if needed now that patient is eating * Continues on daptomycin/cefepime for treatment of diabetic foot infection/osteomyelitis of left foot * Orthopedics/vascular surgery consulted, patient likely to require significant debridement 11/12 * 71 yo admitted secondary to osteomyelitis. Pharmacy has been consulted to assist with inpatient glycemic management. * Ordered a type 2 diabetic diet. Currently on Daptomycin and Cefepime. SCr at 7.18 mg/dL (patient is ESRD but refuses HD). * Did take 50 units of Lantus evening prior to admission. * Will hold Lantus for now given BSGs. * Start Novolog only. Target BSG of 110-140 mg/dL to help with infection and promote wound healing. PLAN FOR INPATIENT GLYCEMIC CONTROL: * Basal insulin * Lantus 20-25 units dose scale SC HS based on BSG (see EHR for details) * Bolus insulin * NovoLog per scale ACHS or Q6hrs while NPO * Goal Range: Low 110 mg/dL - High 140 mg/dL * Correction Factor: 15 mg/dL/unit * Nutritional / Prandial insulin per carb ratio of 1 unit per 5 grams CHO consumed
[2021-11-16] MEDS ORDERED: BUPIVACAINE 0.5 % 5 MG/1 ML MPF 30ML VIAL ONE (14:55)
[2021-11-16] MEDS ORDERED: ceFAZolin 330 MG/ML 1 GM VIAL ONE (14:55)
[2021-11-16] MEDS ORDERED: fentaNYL citrate 100 MCG/2 ML VIAL ONE (15:16)
[2021-11-16] MEDS ORDERED: MIDAZOLAM HCL 1 MG/ML 2ML VIAL ONE (15:16)
[2021-11-16] MEDS ORDERED: PROPOFOL IV EMULSION 10 MG/ML 20 ML VIAL IV ONE (15:18)
[2021-11-16] MEDS ORDERED: ROPIVACAINE 0.5% 5 MG/ML 30 ML VIAL ONE (15:20)
--- NOTE | 2021-11-16 15:29 | History & Physical Bridge Note ---
Date of Service November 16, 2021 History & Physical Bridge Note I have examined the patient, reviewed the History & Physical and in the interval since the performance of the History & Physical I have noted the following changes of clinical significance: Will need left below knee amputation.
--- NOTE | 2021-11-16 15:34 | Anesthesiology Consultation ---
Date of Service November 16, 2021 Assessment & Plan (1) Encounter for pre-operative examination: Chart Review Chart Review: Acceptable Risk for Surgery and Patient NOT seen in Pre Admission Testing Consults Requested none ASA ASA4 Proposed Anesthesia Anesthesia Type: General Regional Regional Laterality: Left Site: Femoral and Popliteal Risk / Benefits Reviewed With: PT / POA / Parent / Guardian, Accepts Plan and Informed Consent Obtained Additional Notes Pt understands that DNR/DNI will be on hold during the perioperative period. Pt in agreement. History Surgery Operation Date: 11/15/21 07:55 Proposed Procedures p Perm Catheter Placement - Patricio Hdez MD Operation Date: 11/16/21 07:00 Proposed Procedures p Left Below Knee Amputation - Joselito Jay DO Height/Weight Height: 5 ft 8 in Weight: 128.1 kg Allergies Allergy/AdvReac Type Severity Reaction Status Date / Time metformin Allergy Intermediate GI SYMPTOMS Verified 09/28/21 12:30 isosorbide Allergy Mild Rash Verified 09/28/21 12:30 lisinopril Allergy Unknown CAN'T Verified 09/28/21 12:30 REMEMBER Medications Home Medications Medication Instructions Recorded Confirmed Last Taken aspirin 81 mg tablet,delayed 81 mg PO DAILY #90 tab 06/06/20 11/12/21 01/23/21 release (Adult Low Dose Aspirin) pen needle, diabetic 31 gauge x #100 ea 02/22/21 07/06/21 Unknown 316" (BD Ultra-Fine Mini Pen Needle) amlodipine 5 mg tablet 5 mg PO DAILY #30 tab 03/28/21 11/12/21 Unknown clonidine HCl 0.1 mg tablet 0.1 mg PO BID #180 tab 05/07/21 11/12/21 Unknown atorvastatin 40 mg tablet 40 mg PO DAILY #90 tab 06/11/21 11/12/21 Unknown diphenoxylate-atropine 2.5 1 tab PO QID PRN #60 tab 07/10/21 11/12/21 Unknown mg-0.025 mg tablet (Lomotil) metoprolol succinate 100 mg 100 mg PO QAM #90 tab 09/03/21 11/12/21 Unknown tablet,extended release 24 hr allopurinol 100 mg tablet 50 mg PO DAILY #45 tab 09/05/21 11/12/21 Unknown insulin glargine 100 unit/mL (3 50 unit SQ PM #15 ml 09/05/21 11/12/21 Unknown mL) subcutaneous pen (Lantus Solostar U-100 Insulin) brimonidine 0.15 % eye drops 1 drp OPB BID 11/12/21 11/12/21 Unknown calcitriol 0.5 mcg capsule 0.5 mcg PO BID 11/12/21 11/12/21 Unknown cholecalciferol (vitamin D3) 50 150 mcg PO DAILY 11/12/21 11/12/21 Unknown mcg (2,000 unit) tablet furosemide 40 mg tablet 40 mg PO BID 11/12/21 11/12/21 Unknown latanoprost 0.005 % eye drops 1 drp OPHTHALMIC (EYE) HS 11/12/21 11/12/21 Unknown levothyroxine 50 mcg tablet 50 mcg PO DAILY 11/12/21 11/12/21 Unknown loperamide 2 mg capsule (Imodium 2 mg PO Q4H PRN 11/12/21 11/12/21 Unknown A-D) losartan 50 mg tablet 50 mg PO BID 11/12/21 11/12/21 Unknown multivitamin 1 tab PO DAILY 11/12/21 11/12/21 Unknown Active Medications Generic Name Dose Route Start Last Admin Trade Name Freq PRN Reason Stop Dose Admin Allopurinol 50 mg 11/13/21 09:00 11/16/21 10:08 Allopurinol 100 Mg Tab PO 12/13/21 08:59 Not Given DAILY BERTHA Amlodipine Besylate 5 mg 11/13/21 09:00 11/15/21 10:17 Amlodipine Besylate 5 Mg Tab PO 12/13/21 08:59 5 mg DAILY BERTHA Administration Aspirin 81 mg 11/13/21 09:00 11/16/21 10:08 Aspirin 81 Mg Ectab PO 12/13/21 08:59 Not Given DAILY BERTHA Atorvastatin Calcium 40 mg 11/13/21 09:00 11/16/21 10:08 Atorvastatin 40 Mg Tab PO 12/13/21 08:59 Not Given DAILY BERTHA Brimonidine Tartrate 1 drops 11/12/21 21:00 11/16/21 10:14 Brimonidine Tartrate-P 0.15% 5 Ml Btl OPB 12/12/21 20:59 1 drops BID BERTHA Administration Calcitriol 0.5 mcg 11/12/21 21:00 11/16/21 10:08 Calcitriol 0.25 Mcg Capsule PO 12/12/21 20:59 Not Given BID BERTHA Clonidine HCl 0.1 mg 11/12/21 21:00 11/16/21 10:14 Clonidine Hcl 0.1 Mg Tab PO 12/12/21 20:59 0.1 mg BID BERTHA Administration Cyanocobalamin 100 mcg 11/13/21 09:00 11/16/21 10:08 Cyanocobalamin (B-12) 100 Mcg Tablet PO 11/27/21 09:01 Not Given QAM BERTHA Folic Acid 1 mg 11/13/21 09:00 11/16/21 10:08 Folic Acid 1 Mg Tab PO 12/12/21 09:01 Not Given QAM BERTHA Amiodarone HCl/Dextrose 360 mg in 200 mls @ 16.667 mls/hr 11/15/21 19:00 11/16/21 07:56 Nexterone / D5w IV 12/15/21 18:59 0.5 mg/min .Q12H BERTHA 16.7 mls/hr Administration 0.5 MG/MIN Insulin Aspart 0 units 11/12/21 17:30 11/16/21 12:24 Insulin Aspart Per Unit SC 12/12/21 17:29 1 units ACHS BERTHA Administration Protocol Insulin Glargine 0 units 11/13/21 21:00 11/15/21 20:16 Insulin Glargine Solostar 100 Units/Ml 3 Ml Pen SC 12/13/21 20:59 25 units HS BERTHA Administration Protocol Latanoprost 1 drops 11/12/21 21:00 11/15/21 20:18 Latanoprost 0.005% Op Soln 2.5 Ml Btl OP 12/12/21 20:59 1 drops HS BERTHA Administration Levothyroxine Sodium 50 mcg 11/13/21 06:30 11/16/21 06:25 Levothyroxine Sodium 50 Mcg Tablet PO 12/13/21 06:29 50 mcg DAILYBB BERTHA Administration Metoprolol Succinate 100 mg 11/13/21 09:00 11/16/21 10:13 Metoprolol Succ 50mg Ext Rel Tab PO 12/13/21 08:59 100 mg QAM BERTHA Administration Oxycodone/Acetaminophen 1 - 2 tab 11/14/21 12:42 11/16/21 12:47 Oxycodone/Acetaminophen 5mg/325mg Tab PO 11/28/21 12:41 1 tab Q4H PRN Administration Moderate Pain NPO Date Last Intake of Fluids: 11/13/21 Time Last Intake of Fluids: 21:00 Date Last Intake of Solids: 11/13/21 Time Last Intake of Solids: 18:00 Past Medical History Medical History Chronic renal insufficiency, stage IV (severe) Diabetes mellitus, type 2 Diabetic autonomic neuropathy Diabetic foot ulcer associated with type 2 diabetes mellitus Dyslipidemia Ex-smoker Foot drop RT FOOT (WEARS BRACE) Gait disturbance History of diabetic ulcer of foot Hx of gout Hypertension Hypothyroidism Morbid obesity with BMI of 45.0-49.9, adult Peripheral arterial disease Pulmonary arterial hypertension Sleep apnea NO DEVICE CURRENTLY Type 2 diabetes mellitus with retinopathy Vitamin D deficiency Exercise / Class Metabolic Activity IV < 2 Limit ADL/Bedbound Past Family History Family History Mother Pancreatic cancer Breast cancer Family history of diabetes mellitus Father Myocardial infarction Brother Prostate cancer Other No family history of adverse response to anesthesia Denies family history of Coronary heart disease Colorectal cancer Past Surgical History Surgical History Amputated toe of right foot History of cataract surgery RT/LEFT History of colonoscopy Past Anesthesia History No Hx of Anesthesia Complications History of PONV No Hx of PONV Social History Smoking Status: Never smoker Do You Dip or Chew Tobacco: No Hx Alcohol Use: No Hx Substance Use: No substance use type: does not use Review of Systems Positive for SOB - per primary team - cannot delay amputation until pulmonary status is further improved. Dialysis done yesterday Patient denies active symptoms of GERD. Physical Exam Vital Signs Last Vital Signs Temp 37.1 C 11/16/21 15:04 Pulse 85 11/16/21 15:04 Resp 18 11/16/21 15:04 BP 107/67 11/16/21 15:04 Pulse Ox 100 11/16/21 15:04 Constitutional + morbidly obese ENMT Mouth: + edentulous; no TMJ abnormality and oral opening not small Thyromental Distance: > or= 3.5 Finger Breadths Mallampati Class: II Neck normal visual inspection and + facial hair; neck extension not limited Respiratory + uses accessory muscles and + tachypneic Auscultation: lungs clear to auscultation bilaterally Cardiovascular Rate/Rhythm: regular rhythm; + abnormal rate Heart Sounds: no murmur Neurologic moves all extremities Psychiatric Orientation: alert and oriented x 3 Testing Laboratory Results 11/16/21 06:43 11/16/21 06:43 PT 13.8 Seconds (9.0-12.0) H 11/15/21 15:27 INR 1.3 (0.9-1.1) H 11/15/21 15:27 APTT 47.6 Seconds (21.0-31.0) H* 11/15/21 23:35 Hemoglobin A1c 7.8 % (4.5-5.6) H 11/13/21 02:11 Urine Color Yellow 11/13/21 21:56 Urine Appearance Cloudy (Clear) A 11/13/21 21:56 Urine pH 5.0 (4.5-7.5) 11/13/21 21:56 Ur Specific [place] 1.016 (1.000-1.030) 11/13/21 21:56 Urine Protein 1+ (Negative) H 11/13/21 21:56 Urine Glucose (UA) Negative (Negative) 11/13/21 21:56 Urine Ketones Negative (Negative) 11/13/21 21:56 Urine Nitrite Negative (Negative) 11/13/21 21:56 Ur Leukocyte Esterase Negative (Negative) 11/13/21 21:56 Urine WBC (Auto) 1-5 /hpf (0-5) 11/13/21 21:56 Urine RBC (Auto) 0-4 /hpf (0-4) 11/13/21 21:56 U Hyaline Cast (Auto) 1-5 /lpf (0-5) 11/13/21 21:56 U Epithel Cells (Auto) >30 /lpf (0-5) H 11/13/21 21:56 Urine Bacteria (Auto) Negative (Negative) 11/13/21 21:56 Blood Type O Positive 11/12/21 18:30 Antibody Screen NEGATIVE 11/12/21 18:30 11/12/21 15:10 Gram Stain - Final Foot,Left Wound Culture - Final Citrobacter koseri Alcaligenes faecalis 11/12/21 14:29 Aerobic Blood Culture - Preliminary Blood No growth in Aerobic bottle after 48 hours. Anaerobic Blood Culture - Preliminary Gram positive bacilli 11/12/21 14:30 Aerobic Blood Culture - Preliminary Blood No growth in Aerobic bottle after 48 hours. Anaerobic Blood Culture - Preliminary No growth in Anaerobic bottle after 48 hours. 11/16/21 11/16/21 11/16/21 14:55 11:25 07:33 POC Glucose 139 H 148 H 149 H
[2021-11-16] MEDS: CEFEPIME 1,000 MG in SYRINGE 0 ML IV SCH (16:11)
[2021-11-16] MEDS ORDERED: ONDANSETRON INJ 2 MG/ML 2 ML VIAL ONE ×2 (17:05→18:48)
[2021-11-16] MEDS ORDERED: SUCCINYLCHOLINE CHLORIDE 20 MG/ML 10 ML VIAL IV ONE (17:05)
--- NOTE | 2021-11-16 18:19 | Post Operative Brief Note ---
Immediate Post Op Note v1 Date of Surgery November 16, 2021 Pre & Post Diagnosis Operation Date: 11/15/21 07:55 Pre-Op Diagnosis: Acute Kidney Injury Post-Op Diagnosis: Acute Kidney Injury Operation Date: 11/16/21 07:00 Pre-Op Diagnosis: SEPSIS, OSTEO, EARLENE, ANEMIA Post-Op Diagnosis: SEPSIS, OSTEO, EARLENE, ANEMIA I identified the patient and participated in the time-out.: Yes Procedure Operation Date: 11/15/21 07:55 Actual Procedures p Insertion of Perm Catheter, Right Internal Jugular Approach, Ultrasound Localization of Right Internal Jugular Vein, Fluoroscopy for Positioning, Moderate Sedation [id number](Right) - Patricio Hdez MD Operation Date: 11/16/21 07:00 Actual Procedures p Left Below Knee Amputation(Left) - Joselito Jay DO Surgeon Joselito Jay DO Packing Machine Tender Alfa Villatoro PA-C, Kendall Bajwa PA-C Estimated Blood Loss 30 Findings Consistent with Post-Op Diagnosis Specimens Aerobic, anaerobic, Gram stain left lower leg abscess Left below-knee amputation for pathology Drains Hemovac Drain (10 fr dual drain) Anesthesia Type General Regional Complications none Disposition Accompanied Patient To Recovery: No
[2021-11-16] MEDS ORDERED: ATROPINE SULFATE 0.1 MG/ML 10ML SYR IV PRN (18:51)
[2021-11-16] MEDS ORDERED: fentaNYL citrate 100 MCG/2 ML VIAL IV PRN (18:51)
[2021-11-16] MEDS ORDERED: ePHEDrine sulfate 50 MG/ML AMP IV PRN (18:51)
[2021-11-16] MEDS ORDERED: ONDANSETRON INJ 2 MG/ML 2 ML VIAL IV PRN (18:51)
[2021-11-16] MEDS ORDERED: diphenhydrAMINE Capsule 25 MG CAP PO PRN (19:48)
[2021-11-16] MEDS ORDERED: MAGNESIUM HYDROXIDE SUSP 30 ML UDC PO PRN (19:48)
[2021-11-16] MEDS ORDERED: NALOXONE HCL 0.4 MG/1 ML VIAL/CARP IV PRN (19:48)
[2021-11-16] MEDS ORDERED: bisacodyL 10 MG SUPP PR PRN (19:48)
--- NOTE | 2021-11-16 20:12 | Anesthesiology Progress Note ---
Date of Service November 16, 2021 Anesthesia Post Procedure Vital Signs Vital Signs: Temp Pulse Pulse Pulse Pulse Resp BP 11/16/21 19:48 36.6 C 84 18 11/16/21 19:25 91 H 27 H 11/16/21 19:15 36.9 C 91 H 19 11/16/21 19:05 93 H 27 H 11/16/21 18:55 98 H 24 11/16/21 18:45 85 25 H 11/16/21 18:40 90 24 11/16/21 18:35 93 H 23 11/16/21 18:27 36.5 C 76 17 11/16/21 15:04 37.1 C 85 18 11/16/21 12:15 91 H 15 11/16/21 07:05 36.9 C 106 H 18 11/16/21 06:15 89 11/16/21 05:01 37.0 C 113 H 22 11/15/21 23:40 36.4 C L 105 H 26 H 11/15/21 23:20 36.8 C 98 H 11/15/21 23:00 77 98/67 L 11/15/21 22:40 70 105/65 11/15/21 22:20 88 108/73 11/15/21 22:00 77 103/59 L 11/15/21 21:40 78 91/65 L 11/15/21 21:20 96 H 95/55 L 11/15/21 21:07 97 H 111/94 11/15/21 21:02 37 C 83 11/15/21 20:21 36.9 C 103 H 18 BP BP Pulse Ox 11/16/21 19:48 112/64 94 11/16/21 19:25 112/50 L 98 11/16/21 19:15 112/66 95 11/16/21 19:05 119/67 96 11/16/21 18:55 119/72 96 11/16/21 18:45 123/70 89 L 11/16/21 18:40 99 11/16/21 18:35 124/83 85 L 11/16/21 18:27 121/66 87 L 11/16/21 15:04 107/67 100 11/16/21 12:15 119/75 94 11/16/21 07:05 119/67 93 11/16/21 06:15 11/16/21 05:01 129/67 94 11/15/21 23:40 126/71 96 11/15/21 23:20 106/79 11/15/21 23:00 11/15/21 22:40 11/15/21 22:20 11/15/21 22:00 11/15/21 21:40 11/15/21 21:20 11/15/21 21:07 11/15/21 21:02 11/15/21 20:21 106/62 96 Transfer of Care Handoff Completed per policy Notes Mental Status: alert / awake / arousable and participated in evaluation Patient Amnestic to Procedure: Yes Nausea / Vomiting: adequately controlled Pain: adequately controlled Airway Patency, RR, SpO2: stable & adequate BP & HR: stable & adequate Hydration State: stable & adequate Anesthetic Complications: no major complications apparent and Pt Satisfied with anesthetic care
[2021-11-16] MEDS: METOCLOPRAMIDE HCL INJ 5 MG/ML 2 ML VIAL IV PRN (20:22)
[2021-11-16] MEDS: LATANOPROST 0.005% OP SOLN 2.5 ML BTL OP SCH (20:22)
[2021-11-16] MEDS: DOCUSATE SODIUM 100 MG CAP PO SCH (20:25)
[2021-11-16] MEDS: SENNA 8.6 MG TAB PO SCH (20:26)
[2021-11-16] MEDS: INSULIN GLARGINE SOLOSTAR 100 UNITS/ML 3 ML PEN SC SCH (20:40)
[2021-11-17] MEDS: oxyCODONE/ACETAMINOPHEN 5mg/325mg TAB PO PRN ×2 (02:27→20:33)
[2021-11-17] MEDS: AMIODARONE / D5W 360 MG/200 ML BAG IV SCH ×2 (03:35→14:04)
--- NOTE | 2021-11-17 04:01 | Operative Report (OR) ---
DATE OF PROCEDURE: 11/16/2021. PREOPERATIVE DIAGNOSES: 1. Left foot gangrene. 2. Abscess, left foot. 3. Sepsis. 4. Peripheral vascular disease. 5. Acute kidney injury. 6. Anemia. POSTOPERATIVE DIAGNOSES: 1. Left foot gangrene. 2. Abscess, left foot. 3. Sepsis. 4. Peripheral vascular disease. 5. Acute kidney injury. 6. Anemia. PROCEDURE: Left below-knee amputation. SURGEON: Joselito Jay DO KNURLING MACHINE OPERATOR: Alfa Villatoro PA-C, who was present for patient positioning, sterile prep and drape, management of retractors and instruments. He was present through the critical portions of the case including wound closure, application of sterile dressing and transport of the patient to recovery. SECOND ASSIST: Kendall Bajwa PA-C, who was present for patient positioning, sterile prep and drape, management of retractors and instruments. He was present through the critical portions of the case including wound closure, application of sterile dressing and transport of the patient to recovery. ANESTHESIA: General, regional. SPECIMENS: 1. Left below-knee amputation. 2. Aerobic, anaerobic, Gram stain, abscess, left lateral lower leg. DRAINS: Hemovac x2. COMPLICATIONS: None. BLOOD LOSS: 30 mL. PERTINENT HISTORY: This is a 71-year-old gentleman who presented to [facility] under the medical service with multiple medical comorbidities and sepsis. Noted to have left fourth and fifth toe gangrene with necrotic plantar lateral midfoot diabetic ulcers and osteomyelitis of the fourth and fifth metatarsal head, the proximal, middle, and distal phalanges. Multiple medical comorbidities including IDDM, CKD stage IV, SUKHWINDER, pulmonary hypertension, diabetic neuropathy, hypertension, dyslipidemia. Seen in the emergency room on 11/11/2021 secondary to shortness of breath on exertion that started a week prior to admission. He had gone to his PCP, was evaluated and did have chills and rigors and sent to the Emergency Department, admitted to the hospitalist service, stabilized, and orthopedics was then consulted for his gangrenous foot and toes. After workup by vascular surgery, he was noted to have small vessel disease and no ability to bypass or revascularize. Radiographs and MRI demonstrate severe abscess, gangrene, osteomyelitis. The patient was then scheduled for below-knee amputation as indicated. All potential risks, benefits, complications, alternatives, rehab potential for incomplete relief of symptoms, need for further surgery, DVT, PE, , persistent pain, swelling, scarring, weakness, neurovascular injury, wound complications, need for further debridement or amputation was discussed with the patient. The patient decided to proceed with the procedure as indicated. DESCRIPTION OF PROCEDURE: The patient was administered a regional anesthetic, taken to the operative suite and placed supine on the operating table. After review of consent and identification of proper site, the patient was anesthetized, LMA was placed. Tourniquet was placed high on the left thigh over cast padding. Left lower extremity was sterilely prepped and draped in the usual sterile fashion, elevated, and tourniquet inflated to 350 mmHg. There was no exsanguination performed due to the nature of the patient's sepsis. Next, after surgical timeout was performed, a 10 blade scalpel was used to make an incision approximately 11 cm distal to the tibial tubercle on the anterior aspect of the limb. This incision was carried out full thickness to the mid lateral line, both medial and lateral. Next, a long posterior flap was then created with a 10 blade scalpel. Next, the anterior compartment was then dissected with electrocautery and a 10 blade scalpel, using a Mariam clamp to cross clamp any bleeders as necessary. Next, the anterior compartment was then dissected down to the medial and lateral aspects of the tibia and then using a Mariam clamp, soft tissue was then dissected circumferentially around the tibia and then using a blunt Hohmann and a sharp Hohmann to protect the soft tissues, the tibia was then transected with a large sagittal saw and a slight bevel cut was made anteriorly and then feather cuts were made medial and lateral. Next, the fibula was skeletonized with a Castelan and then transected with a slight bevel approximately 1 cm shorter than the tibia to avoid any type of distal prominence. Next, the medial and lateral tissue flaps were then sharply dissected through with electrocautery and sharp dissection. Then the 10 blade sharp dissection was then performed along the posterior margin of the distal tibia and fibula and then transecting the gastrocsoleus and Achilles. The residual lower limb was then passed off as specimen. There was noted to be an abscess fluid pocket in the lateral aspect of the lower limb which was then sampled for aerobic, anaerobic, Gram stain analysis. Next, the large neurovascular bundles were then crossclamped with Mariam clamps and then using double folded 2-0 silk ties, these were tied off and then cauterized. The amputation knife was then used to shape the posterior flap for a low tension closure. Pulsatile lavage was then used 3 liters with Ancef until clear. Next, top gloves and top sheet were then changed and then the soft tissue flap was then carefully fashioned for a low tension closure without dog ears with a 10 blade scalpel. Next, the distal gastrocsoleus was then closed to the anterior aspect of the amputation with buried interrupted #1 Vicryl at the fascia. Next, the fascial layer was then partially closed medially and laterally with buried interrupted [id number] #1 Vicryl closures and then 10-Vincentian Hemovac drains x2 were placed through the distal aspect of the amputation stump extending medially and laterally. It was then followed by final irrigation with sterile saline with pulsatile lavage and then the fascia was closed with #1 Vicryl, the dermis was closed using buried interrupted 2-0 Vicryl. Skin was closed using a combination of 4-0 nylon and sia. A sterile compressive dressing was applied consisting of Xeroform gauze, sterile 4 x 4s, ABD pads, cast padding, and an Fredrick wrap x2. The tourniquet was released. The patient was awakened and taken to recovery in stable condition. Job ID: [id number] [facility] CENTERDony
[2021-11-17] MEDS: LEVOTHYROXINE SODIUM 50 MCG TABLET PO SCH (06:25)
--- NOTE | 2021-11-17 06:25 | Orthopedic Progress Note ---
Date of Service November 17, 2021 Assessment & Plan (1) Diabetic foot ulcer associated with type 2 diabetes mellitus: Plan: POD #1 s/p left below knee amputation will do dressing change tomorrow, possible pull drains depending on drainage amounts ice/elevate NWB left leg Admission and Anticipated Discharge Date Admission Date: November 12, 2021 Subjective POD #1 Left below knee amputation Review of Systems Constitutional: no fever and no chills Respiratory: no cough and no dyspnea Cardiovascular: no chest pain, no dyspnea and no orthopnea Gastrointestinal: no abdominal pain, no nausea and no vomiting Physical Exam Physical Exam: Vital Signs Temp Pulse Pulse Pulse Pulse Pulse Resp 11/17/21 05:58 36.4 C L 82 16 11/17/21 02:12 36.9 C 86 18 11/16/21 23:00 86 11/16/21 22:18 36.9 C 86 24 11/16/21 21:36 37.1 C 90 16 11/16/21 19:48 36.6 C 84 18 11/16/21 19:25 91 H 27 H 11/16/21 19:15 36.9 C 91 H 19 11/16/21 19:05 93 H 27 H 11/16/21 18:55 98 H 24 11/16/21 18:45 85 25 H 11/16/21 18:40 90 24 11/16/21 18:35 93 H 23 11/16/21 18:27 36.5 C 76 17 11/16/21 15:04 37.1 C 85 18 11/16/21 12:15 91 H 15 11/16/21 07:05 36.9 C 106 H 18 BP BP Pulse Ox 11/17/21 05:58 114/64 93 11/17/21 02:12 116/68 94 11/16/21 23:00 11/16/21 22:18 111/63 93 11/16/21 21:36 122/67 90 11/16/21 19:48 112/64 94 11/16/21 19:25 112/50 L 98 11/16/21 19:15 112/66 95 11/16/21 19:05 119/67 96 11/16/21 18:55 119/72 96 11/16/21 18:45 123/70 89 L 11/16/21 18:40 99 11/16/21 18:35 124/83 85 L 11/16/21 18:27 121/66 87 L 11/16/21 15:04 107/67 100 11/16/21 12:15 119/75 94 11/16/21 07:05 119/67 93 Intake and Output 11/16/21 11/16/21 11/17/21 14:59 22:59 06:59 Intake Total 200 / 8645.898 3941.013 / 1490.00 0 81.987 / 1490.000 Output Total 30 Balance 200 / 9494.490 6893.013 / 1460.00 0 81.987 / 1460.000 Intake: IV 200 / 940.000 658.013 / 940.000 81.987 / 940.000 Amiodarone / D 5w 360 mg In 200 200 / 400.000 118.013 / 400.000 81.987 / 400.000 ml @ 0.5 MG/UT N 16.667 mls/hr IV .Q12H BERTHA R x#:[id number] Vancomycin HCl 2,000 mg In 540 / 540 Sodium Chlorid e 0.9% 500 ml @ 200 mls/hr IV NOW ONE Rx#: [id number] IV Perioperative 350 / 350 Oral 200 / 200 Output: Estimated Blood Loss 30 Other: Other Intake Laxmi rce Patient was NPO th is shift. Weight 128.1 kg 129 kg Weight Measureme nt Method Built in [facility] Patient Weight 11/17/21 06:59 Weight 129 kg Musculoskeletal: left leg: dressing is clean and dry, no drainage noted. his thigh is soft, non-tender Results & Data ([facility]) Vital Signs (Past 12 Hours) Vital Signs Temp Pulse Pulse Pulse Resp BP BP 11/17/21 05:58 36.4 C L 82 16 114/64 11/17/21 02:12 36.9 C 86 18 116/68 11/16/21 23:00 86 11/16/21 22:18 36.9 C 86 24 111/63 11/16/21 21:36 37.1 C 90 16 122/67 11/16/21 19:48 36.6 C 84 18 112/64 11/16/21 19:25 91 H 27 H 112/50 L 11/16/21 19:15 36.9 C 91 H 19 112/66 11/16/21 19:05 93 H 27 H 119/67 11/16/21 18:55 98 H 24 119/72 11/16/21 18:45 85 25 H 123/70 11/16/21 18:40 90 24 11/16/21 18:35 93 H 23 124/83 11/16/21 18:27 36.5 C 76 17 121/66 Pulse Ox 11/17/21 05:58 93 11/17/21 02:12 94 11/16/21 23:00 11/16/21 22:18 93 11/16/21 21:36 90 11/16/21 19:48 94 11/16/21 19:25 98 11/16/21 19:15 95 11/16/21 19:05 96 11/16/21 18:55 96 11/16/21 18:45 89 L 11/16/21 18:40 99 11/16/21 18:35 85 L 11/16/21 18:27 87 L
[2021-11-17] MEDS ORDERED: Heparin IV Adult Wt-Based Standard *NO* Bolus Protocol IV SCH (06:26)
[2021-11-17 06:57] LABS: Hematocrit (blood only) 24.5 % (42-52); Hemoglobin 7.9 g/dL (14.0-18.0); Mean Corpuscular Hemoglobin 28.1 pg (25-34); Mean Corpuscular Hgb Conc 32.2 g/dL (32-36); Mean Corpuscular Volume 87.2 fL (80-100); Mean Platelet Volume 9.7 fL (7.4-10.4); Nucleated RBC # (auto) 0.03 K/uL (0-0); Nucleated RBC % (auto) 0.1 %; Platelet Count 266 K/uL (130-400); RDW Standard Deviation 54.9 fL (36.4-46.3); Red Blood Count 2.81 M/uL (4.7-6.1); White Blood Count 20.77 K/uL (4.8-10.8)
[2021-11-17] MEDS ORDERED: SODIUM CHLORIDE 0.9% 1000ML 1,000 ML IV PRN (07:00)
[2021-11-17 07:26] LABS: BUN Creatinine Ratio 19.7 (10-20); Calcium 8.1 mg/dl (8.5-10.1); Creatinine Clr Calc Pharmacy 16.5 ml/min; Est GFR (African American) 11.2 ml/min; Est GFR (Non-African American) 9.7 ml/min; Magnesium 2.1 mg/dl (1.7-2.4); Potassium 3.9 mmol/L (3.5-5.1)
[2021-11-17] MEDS: HEPARIN SODIUM/DEXTROSE 25,000 UNITS/500 ML BAG IV SCH ×2 (07:39→22:41)
[2021-11-17] MEDS: CYANOCOBALAMIN (B-12) 100 MCG TABLET PO SCH (08:56)
[2021-11-17] MEDS: ASPIRIN 81 MG ECTAB PO SCH (08:56)
[2021-11-17] MEDS: MULTIVITAMIN TAB PO SCH (08:56)
[2021-11-17] MEDS: cloNIDine HCL 0.1 MG TAB PO SCH ×2 (08:56→20:23)
[2021-11-17] MEDS: METOPROLOL SUCC 50MG EXT REL TAB PO SCH (08:56)
[2021-11-17] MEDS: CALCITRIOL 0.25 MCG CAPSULE PO SCH ×2 (08:57→20:22)
[2021-11-17] MEDS: BRIMONIDINE TARTRATE-P 0.15% 5 ML BTL OPB SCH ×2 (08:58→20:30)
[2021-11-17] MEDS: FOLIC ACID 1 MG TAB PO SCH (08:58)
[2021-11-17] MEDS: DOCUSATE SODIUM 100 MG CAP PO SCH ×2 (08:58→20:24)
[2021-11-17] MEDS: ATORVASTATIN 40 MG TAB PO SCH (08:58)
[2021-11-17] MEDS: INSULIN ASPART PER UNIT SC SCH ×4 (09:18→20:29)
[2021-11-17] MEDS: allopurinoL 100 MG TAB PO SCH (09:21)
[2021-11-17] MEDS: ONDANSETRON INJ 2 MG/ML 2 ML VIAL IV PRN (09:22)
[2021-11-17] MEDS: METOCLOPRAMIDE HCL INJ 5 MG/ML 2 ML VIAL IV PRN (09:46)
--- NOTE | 2021-11-17 10:17 | Nephrology Progress Note ---
Date of Service November 17, 2021 Assessment & Plan (1) ESRD (end stage renal disease): (2) Acute kidney injury: (3) Anemia: (4) Secondary hyperparathyroidism of renal origin: Plan: ESRD with history of advanced CKD secondary to diabetic nephropathy, admitted with nonhealing at left foot ulcer, status post BKA on 11/16/2021. The started on hemodialysis on 11/15/2021 via tunneled dialysis catheter for non recovery from EARLENE with underlying advanced CKD. Tolerated 1st dialysis treatment, tunneled dialysis catheter functioning well. -- Plan for 2nd dialysis treatment today, heparin free. -- dose medications for GFR less than 10, left arm nephrology precaution for future vascular access for dialysis -- ROBERTH [id number] units x 1 dose today will follow Admission and Anticipated Discharge Date Admission Date: November 12, 2021 Subjective Quincy was evaluated in his room this morning. Status post left below-knee more protrusion yesterday. Denies any specific symptom but seems to be confused than stress with multiple or procedures and acute hospitalization and feels tired. No shortness of breath. Blood pressure acceptable. Electrolyte acceptable. Hemoglobin slightly dropped to 7.9. Review of Systems Review of Systems: Detailed review of system was otherwise unremarkable except mentioned above. Physical Exam Constitutional: WD/WN, vitals as above no acute distress Eyes: + anicteric sclerae Neck: normal visual inspection Respiratory: no respiratory distress Auscultation: lungs clear to auscultation bilaterally Cardiovascular: Rate/Rhythm: regular rate and regular rhythm Heart Sounds: normal S1 and normal S2 Extremities: no edema Musculoskeletal: left BKA, dressing dry, non tender. Skin: no rashes Neurologic: no focal motor deficits and not confused Psychiatric: Orientation: alert and oriented x 3 Results & Data ([facility]) Vital Signs (Past 12 Hours) Vital Signs Temp Pulse Pulse Resp BP Pulse Ox 11/17/21 05:58 36.4 C L 82 16 114/64 93 11/17/21 02:12 36.9 C 86 18 116/68 94 11/16/21 23:00 86 11/16/21 22:18 36.9 C 86 24 111/63 93 PG Care Time/CCT Total # of Minutes Spent Total Time Spent with Patient: Total time spent is greater than 50% in coordination of care (as documented) at patient's floor/unit and/or counseling patient: Coding Level of Care Code 24426 Subseq Hosp Care Lvl 3 Diagnoses Acute kidney injury N17.9 ESRD (end stage renal disease) N18.6 Anemia D64.9 Secondary hyperparathyroidism of renal origin N25.81
--- NOTE | 2021-11-17 11:21 | Hospitalist Progress Note ---
Date of Service November 17, 2021 Assessment & Plan (1) Osteomyelitis: Plan: 71 yo M w/ PMH of CKD stage IV, uncontrolled diabetes mellitus with peripheral neuropathy, hypertension, SUKHWINDER, and HLD presented 11/12 to our ED at referral of PCP for evaluation of SOB. Patient main concern was shortness of breath which was present for 5 days prior to admission however he was not aware of his left foot infection complicated with necrotic tissue. Pt does have peripheral neurop athy and states no sensation below his knees. 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 - WBC 25K on admission and improved, ESR and CRP elevated, no signs or symptoms of sepsis - LLE Doppler negative for DVT - LLE arterial duplex positive for hemodynamically significant stenosis in the distal anterior tibial artery and dorsalis pedis artery. - MRI foot and ankle 11/13 shows soft tissues ulcer of lateral forefoot with cellulitis with OM of fifth metatarsal head and phalanges with soft tissue gas of forefoot ?secondary to direct extension from soft tissue ulcer vs necrotizing fascitis; tenosynovitis of extensor digitorum - Currently on IV vanc and cefepime- Seen by ID 11/14- recommendations noted- respiratory work up sent as per recommendation - s/p left BKA 11/16 by ortho- Await final pathology results- Believe antibiotics can be discontinued in next couple days if pathology and clx negative- will reach out to ID (2) Atrial fibrillation with RVR, new onset- since 11/15/21, still in rate controlled Afib, asymptomatic. TTE reviewed, no new change. Seen by cardio- Remains on amiodarone drip and heparin drip- Cardiol following. (3) EARLENE on Chronic renal insufficiency, stage IV (severe), now ESRD - Now oliguric, azotemic and acidemic. Permacath placed 11/15, had 1st HD 11/15, 2nd HD today 11/17 per nephro - Losartan and furosemide on hold. Hold nephrotoxics, ABx dosing per pharmacy based on renal function (4) Hypoxia: CXR and chest clear, stable on 2 L of NC, wean down as tolerated, continue incentive spirometer. S/p 2 U of PRBC transfusion. Anemia and deconditioning likely contributing. Avoid aggressive IVF given his ESRD. Reviewed ID recommendations- status stable to improved and it has been so many days on broad antibiotics, so doubt will be positive or will have less utility but will order to complete work up. (5) Anemia of CKD: Hgb 7.5 on presentation (baseline ~ 10.0) and s/p 2 U of PRBC, now Hb >8. Check intermittently, transfuse as needed. Aranesp therapy per nephro. Watch for bleeding while on anticoagulation (6) Diabetes mellitus, type 2: Hgb A1c 7.8 10/2021; diabetic management per pharmacy (7) Hypothyroidism: Continue levothyroxine (8) Pulmonary arterial hypertension: Appears euvolemic, hold furosemide due to EARLENE (9) Hypertension- stable, continue norvasc and toprol with hold parameters 10) Peripheral artery disease LLE- LLE arterial duplex with hemodynamically significant stenosis of distal ant tibial artery and dorsalis pedis artery; Seen by vascular surgery- no intervention needed and can proceed with ortho surgery. DVT prophylaxis: Heparin drip Dispo: PCU for amiodarone drip and telemetry. S/p left BKA, awaiting pathology results. Admission and Anticipated Discharge Date Admission Date: November 12, 2021 Subjective Seen and examined at bedside. Complaining of nausea, had an episode of small emesis. No overnight issues. Denies any pain. No chest pain, shortness of breath, fever or chills, No new issues. Getting dialysis today. Physical Exam Physical Exam: General: Lying in bed, not in acute distress, on 2 L NC HEENT: EOMI, PJ, MMM Chest: Right sided permacath. Clear breath sounds bilaterally, no wheezes or crackles CVS: Irregular rate and rhythm, normal heart sounds, no murmur Abdomen: Soft, non tender, not distended, normal bowel sounds Neuro: Awake, alert, oriented, conversing well, non focal Extremities: Right great toe amputation; Left BKA Results & Data Results & Data ([facility]) Vital Signs (Past 12 Hours) Vital Signs Temp Pulse Pulse Pulse Resp BP BP 11/17/21 10:20 82 128/68 11/17/21 09:55 36.5 C 83 11/17/21 05:58 36.4 C L 82 16 114/64 11/17/21 02:12 36.9 C 86 18 116/68 Pulse Ox 11/17/21 10:20 11/17/21 09:55 11/17/21 05:58 93 11/17/21 02:12 94 Laboratory Results Short CBC 11/17/21 Range/Units 05:58 WBC 20.77 H (4.8-10.8) K/uL Hgb 7.9 L (14.0-18.0) g/dL Hct 24.5 L (42-52) % Plt Count 266 (130-400) K/uL BMP 11/17/21 05:58 Sodium 137 Potassium 3.9 Chloride 102 Carbon Dioxide 19 L BUN 109 H Creatinine 5.52 H* D Glucose 128 H Calcium 8.1 L Medications Administered Current Inpatient Medications Acetaminophen (Acetaminophen 325 Mg Tab) 650 mg PO Q4H PRN PRN Reason: Pain or Fever Stop: 12/12/21 14:38 Allopurinol (Allopurinol 100 Mg Tab) 50 mg PO DAILY BERTHA Stop: 12/13/21 08:59 Last Admin: 11/17/21 09:21 Dose: 50 mg Documented by: Amlodipine Besylate (Amlodipine Besylate 5 Mg Tab) 5 mg PO DAILY BERTHA Stop: 12/13/21 08:59 Last Admin: 11/15/21 10:17 Dose: 5 mg Documented by: Aspirin (Aspirin 81 Mg Ectab) 81 mg PO DAILY BERTHA Stop: 12/13/21 08:59 Last Admin: 11/17/21 08:56 Dose: 81 mg Documented by: Atorvastatin Calcium (Atorvastatin 40 Mg Tab) 40 mg PO DAILY BERTHA Stop: 12/13/21 08:59 Last Admin: 11/17/21 08:58 Dose: 40 mg Documented by: Bisacodyl (Bisacodyl 10 Mg Supp) 10 mg OK DAILY PRN PRN Reason: Constipation Stop: 12/16/21 19:47 Brimonidine Tartrate (Brimonidine Tartrate-P 0.15% 5 Ml Btl) 1 drops OPB BID BERTHA Stop: 12/12/21 20:59 Last Admin: 11/17/21 08:58 Dose: 1 drops Documented by: Calcitriol (Calcitriol 0.25 Mcg Capsule) 0.5 mcg PO BID BERTHA Stop: 12/12/21 20:59 Last Admin: 11/17/21 08:57 Dose: 0.5 mcg Documented by: Clonidine HCl (Clonidine Hcl 0.1 Mg Tab) 0.1 mg PO BID BERTHA Stop: 12/12/21 20:59 Last Admin: 11/17/21 08:56 Dose: 0.1 mg Documented by: Cyanocobalamin (Cyanocobalamin (B-12) 100 Mcg Tablet) 100 mcg PO QAM BERTHA Stop: 11/27/21 09:01 Last Admin: 11/17/21 08:56 Dose: 100 mcg Documented by: Dextrose (Dextrose 50% 50 Ml Syringe) 25 - 50 ml IV UD PRN; Protocol PRN Reason: Hypoglycemia Protocol Stop: 12/12/21 17:14 Diphenhydramine HCl (Diphenhydramine Capsule 25 Mg Cap) 25 mg PO Q8H PRN PRN Reason: Itching Stop: 12/16/21 19:47 Docusate Sodium (Docusate Sodium 100 Mg Cap) 100 mg PO BID BERTHA Stop: 12/16/21 20:59 Last Admin: 11/17/21 08:58 Dose: Not Given Documented by: Folic Acid (Folic Acid 1 Mg Tab) 1 mg PO QAM [facility] Stop: 12/12/21 09:01 Last Admin: 11/17/21 08:58 Dose: 1 mg Documented by: Glucagon (Glucagon For Inj 1 Mg Vial) 1 mg IM UD PRN; Protocol PRN Reason: Hypoglycemia Protocol Stop: 12/12/21 17:14 Glucose (Glucose 40% Gel 15 Gm Tube) 15 - 30 gm PO UD PRN; Protocol PRN Reason: Hypoglycemia Protocol Stop: 12/12/21 17:14 Glucose (Glucose 10 Tabs/Tube) 4 - 8 tabs PO UD PRN; Protocol PRN Reason: Hypoglycemia Protocol Stop: 12/12/21 17:14 Hydromorphone HCl (Hydromorphone Inj 0.5 Mg/0.5 Ml Syr) 0.5 mg IV Q4H PRN PRN Reason: Pain or Pre PT Stop: 11/30/21 19:47 Amiodarone HCl/Dextrose (Nexterone / D5w) 360 mg in 200 mls @ 16.667 mls/hr IV .Q12H BERTHA Stop: 12/15/21 18:59 Last Admin: 11/17/21 03:35 Dose: 0.5 mg/min, 16.7 mls/hr Documented by: Sodium Chloride (Nss 1000ml) 1,000 mls @ 0 mls/hr IV .Q0M PRN PRN Reason: For Hemodialysis Use ONLY Stop: 11/17/21 12:59 Cefepime HCl 1,000 mg/ Syringe 11.3 mls @ 5.5 mls/min IV DAILY@1600 BERTHA; Protocol Stop: 12/28/21 15:59 Last Admin: 11/16/21 16:11 Dose: 5.5 mls/min Documented by: Heparin Sodium/Dextrose (Heparin Sodium/Dextrose) 25,000 units in 500 mls @ 33 mls/hr IV .[id number] BERTHA; Protocol Stop: 12/17/21 06:44 Last Admin: 11/17/21 07:39 Dose: 1,650 units/hr, 33 mls/hr Documented by: Insulin Aspart (Insulin Aspart Per Unit) 0 units SC [facility]; Protocol Stop: 12/12/21 17:29 Last Admin: 11/17/21 09:18 Dose: 1 units Documented by: Insulin Glargine (Insulin Glargine Solostar 100 Units/Ml 3 Ml Pen) [address] [facility]; Protocol Stop: 12/13/21 20:59 Last Admin: 11/16/21 20:40 Dose: 20 units Documented by: Latanoprost (Latanoprost 0.005% Op Soln 2.5 Ml Btl) [address] [facility] Stop: 12/12/21 20:59 Last Admin: 11/16/21 20:22 Dose: 1 drops Documented by: Levothyroxine Sodium (Levothyroxine Sodium 50 Mcg Tablet) 50 mcg PO DAILYBB [facility] Stop: 12/13/21 06:29 Last Admin: 11/17/21 06:25 Dose: 50 mcg Documented by: Magnesium Hydroxide (Magnesium Hydroxide Susp 30 Ml Udc) 30 ml PO Q6H PRN PRN Reason: Constipation Stop: 12/16/21 19:47 Metoclopramide HCl (Metoclopramide Hcl Inj 5 Mg/Ml 2 Ml Vial) 10 mg IV Q6H PRN PRN Reason: Nausea And Vomiting Stop: 12/16/21 19:47 Last Admin: 11/17/21 09:46 Dose: 10 mg Documented by: Metoprolol Succinate (Metoprolol Succ 50mg Ext Rel Tab) [facility] Stop: 12/13/21 08:59 Last Admin: 11/17/21 08:56 Dose: 100 mg Documented by: Metoprolol Tartrate (Metoprolol Tartrate 1 Mg/Ml Vial) 5 mg IV Q4 PRN; Protocol PRN Reason: for sustained HR>120 Stop: 12/15/21 11:59 Miscellaneous (Carbohydrates For Hypoglycemia ) 15 - 30 gm PO UD PRN PRN Reason: Hypoglycemia Treatment Stop: 12/12/21 17:14 Miscellaneous Information (Pharmacy Glycemic Mgmt Consult) 1 ea N/A UD PRN PRN Reason: Consult Stop: 12/12/21 16:54 Miscellaneous Information (Vancomycin Consult Active) 1 ea N/A UD PRN PRN Reason: Consult Stop: 12/16/21 12:39 Multivitamins (Multivitamin Tab) 1 tab PO [facility] Stop: 12/17/21 08:59 Last Admin: 11/17/21 08:56 Dose: 1 tab Documented by: Naloxone HCl (Naloxone Hcl 0.4 Mg/1 Ml Vial/Carp) 0.1 mg IV Q5M PRN PRN Reason: Oversedation/Resp Depression Stop: 12/16/21 19:47 Ondansetron HCl (Ondansetron Inj 2 Mg/Ml 2 Ml Vial) 4 mg IV Q6H PRN PRN Reason: Nausea And Vomiting Stop: 12/16/21 19:47 Last Admin: 11/17/21 09:22 Dose: 4 mg Documented by: Oxycodone/Acetaminophen (Oxycodone/Acetaminophen 5mg/325mg Tab) 1 - 2 tab PO Q4H PRN PRN Reason: Moderate Pain Stop: 11/28/21 12:41 Last Admin: 11/17/21 02:27 Dose: 2 tab Documented by: Sennosides (Senna 8.6 Mg Tab) 17.[address] [facility] Stop: 12/16/21 20:59 Last Admin: 11/16/21 20:26 Dose: Not Given Documented by: (1) Osteomyelitis Laterality: unspecified laterality Osteomyelitis location: foot Osteomyelitis type: unspecified type Qualified Code(s): M86.9 - Osteomyelitis, unspecified
--- NOTE | 2021-11-17 11:28 | Cardiology Progress Note ---
Date of Service November 17, 2021 Assessment & Plan Admission and Anticipated Discharge Date Admission Date: November 12, 2021 Subjective No CP. C/o SOB. No palps. no dizziness, + Nausea, on HD currently Results & Data ([facility]) Vital Signs (Past 12 Hours) Vital Signs Temp Pulse Pulse Pulse Resp BP BP 11/17/21 10:20 82 128/68 11/17/21 09:55 36.5 C 83 11/17/21 05:58 36.4 C L 82 16 114/64 11/17/21 02:12 36.9 C 86 18 116/68 Pulse Ox 11/17/21 10:20 11/17/21 09:55 11/17/21 05:58 93 11/17/21 02:12 94 Assessment & Plan (1) Atrial fibrillation (1B) Normal LV fxn with mild Pulm HTN this admit (2) Dyspnea on exertion: (3)Post op Left BKA (4) Hypotension -- resolved (5) Anemia: (6) Dyslipidemia: Plan: ASSESSMENT/PLAN: 1. AFib with RVR: Still in AFib with controlled rates, Amio IV for now with nausea, decision later with regards to [facility]itan of NSR, BP improved even with HD, eventual PO Amio if attempt to maintain NSR 2. Hypotension: BP has improved and patient currently normotensive. Continue to hold amlodipine. 3. Dyspnea on exertion:Likely multifactorial. Volume will be managed by Nephrology in the setting of hemodialysis. Ischemic evaluation is not warranted at this time. 4. Anemia: As per primary hospitalist service. 5. Dyslipidemia: Continue statin therapy. 6. Peripheral arterial disease: As per vascular. 7. Pulmonary hypertension:Mild by echo this admission, which was improved compared to last study in 2019. Physical Exam Physical Exam: Constitutional: Alert, oriented, in no acute distress HEENT: mildly reduced carotids Pulmonary: Normal respiratory effort, clear to auscultation throughout Cardiac: Irregularly irregular, normal S1 and S2, no gallops, no rubs, no murmurs Extremities: left leg s/p BKA, Left leg no edema Abdomen: Obese. Normal bowel sounds, soft, non-tender,
[2021-11-17] MEDS ORDERED: EPOETIN ALFA 20,000 UNITS/ML VIAL IV ONE (12:00)
[2021-11-17 13:51] LABS: HBSAG NON-REACTIVE (NON-REACTIVE); Hepatitis B Core Antibody Total REACTIVE (NON-REACTIVE); Hepatitis B Surface Ab, Quant 19 mIU/mL (> OR = 10)
[2021-11-17] MEDS ORDERED: VANCOMYCIN HCL 1,000 MG in SODIUM CHLORIDE 0.9% 250 ML IV ONE (16:00)
[2021-11-17] MEDS: CEFEPIME 1,000 MG in SYRINGE 0 ML IV SCH (17:33)
[2021-11-17] MEDS: SENNA 8.6 MG TAB PO SCH (20:25)
[2021-11-17] MEDS: INSULIN GLARGINE SOLOSTAR 100 UNITS/ML 3 ML PEN SC SCH (20:27)
[2021-11-17] MEDS: LATANOPROST 0.005% OP SOLN 2.5 ML BTL OP SCH (20:30)
[2021-11-18] MEDS: ONDANSETRON INJ 2 MG/ML 2 ML VIAL IV PRN ×2 (01:09→11:40)
[2021-11-18] MEDS: AMIODARONE / D5W 360 MG/200 ML BAG IV SCH ×2 (02:25→14:44)
[2021-11-18] MEDS: LEVOTHYROXINE SODIUM 50 MCG TABLET PO SCH (06:21)
--- NOTE | 2021-11-18 06:40 | Orthopedic Progress Note ---
Date of Service November 18, 2021 Assessment & Plan (1) Diabetic foot ulcer associated with type 2 diabetes mellitus: Plan: POD #2 s/p left below knee amputation dressing changed this am as well as pulled hemovac. cont daily dressing changes. ice/elevate NWB left leg Admission and Anticipated Discharge Date Admission Date: November 12, 2021 Subjective POD #2 s/p left below knee amputation states he was having "hallucinations" last evening, he is able to recall these this am. he is alert and oriented this am. Review of Systems Constitutional: no fever and no chills Respiratory: no cough and no dyspnea Cardiovascular: no chest pain, no dyspnea and no orthopnea Gastrointestinal: no abdominal pain, no nausea and no vomiting Physical Exam Physical Exam: Vital Signs Temp 37.4 C 11/18/21 05:00 Pulse 84 11/18/21 05:00 Resp 18 11/18/21 05:00 BP 115/61 11/18/21 05:00 Pulse Ox 93 11/18/21 05:00 Intake & Output 11/17/21 11/17/21 11/18/21 06:59 18:59 06:59 Intake Total 1271.987 / 1590.00 0 611.572 / 1441.172 829.6 / 1441.172 Output Total 30 / 30 100 / 120 20 / 120 Balance 1241.987 / 1560.00 0 511.572 / 1321.172 809.6 / 1321.172 Weight 129 kg 129 kg 127.8 kg Intake: IV 621.987 / 940.000 411.572 / 1141.172 729.6 / 1141.172 Amiodarone / D 5w 360 mg In 200 81.987 / 400.000 175.072 / 375.072 200 / 375.072 ml @ 0.5 MG/MO N 16.667 mls/hr IV .Q12H BERTHA R x#:[id number] Heparin Sodium /Dextrose 25,000 236.5 / 496.1 259.6 / 496.1 units In 500 m l @ 1,650 UNITS/ HR 33 mls/hr I V .[id number] BERTHA Rx #:[id number] Vancomycin HCl 1,000 mg In 270 / 270 Sodium Chlorid e 0.9% 250 ml @ 200 mls/hr IV TODAY@1600 ONE Rx #:[id number] Vancomycin HCl 2,000 mg In 540 / 540 Sodium Chlorid e 0.9% 500 ml @ 200 mls/hr IV NOW ONE Rx#: [id number] IV Perioperative 350 / 350 Oral 300 / 300 200 / 300 100 / 300 Output: Urine 0 / 0 100 / 100 Estimated Blood Loss 30 / 30 Drain Output 20 / 20 Left Knee Hemo vac 20 / 20 Other: Hemodialysis Ult rafiltration 2,000 Amount # Unmeasured Voi ds 2 Weight Measureme nt Method [facility] Built in [facility] Constitutional: WD/WN, vitals as above Musculoskeletal: left leg: dressing removed, there is no active drainage noted. skin edges well approximated with sia and nylon sutures. hemovac drain also removed this am. Psychiatric: Orientation: alert and oriented x 3 Results & Data ([facility]) Vital Signs (Past 12 Hours) Vital Signs Temp Pulse Resp BP Pulse Ox 11/18/21 05:00 37.4 C 84 18 115/61 93 11/17/21 23:17 37.2 C 77 18 107/71 96 11/17/21 20:19 37.4 C 11/17/21 20:11 37.9 C H 87 18 119/60 93
[2021-11-18 07:25] LABS: Hematocrit (blood only) 24.5 % (42-52); Hemoglobin 8.1 g/dL (14.0-18.0); Mean Corpuscular Hemoglobin 28.5 pg (25-34); Mean Corpuscular Hgb Conc 33.1 g/dL (32-36); Mean Corpuscular Volume 86.3 fL (80-100); Mean Platelet Volume 9.7 fL (7.4-10.4); Nucleated RBC # (auto) 0.06 K/uL (0-0); Nucleated RBC % (auto) 0.3 %; Platelet Count 302 K/uL (130-400); RDW Coefficient of Variation 17.1 % (11.5-14.5); RDW Standard Deviation 55.2 fL (36.4-46.3); Red Blood Count 2.84 M/uL (4.7-6.1); White Blood Count 22.27 K/uL (4.8-10.8)
[2021-11-18 08:08] LABS: Partial Thromboplastin Time 81.3 Seconds (21.0-31.0)
[2021-11-18] MEDS: allopurinoL 100 MG TAB PO SCH (08:38)
[2021-11-18] MEDS: ASPIRIN 81 MG ECTAB PO SCH (08:39)
[2021-11-18] MEDS: CALCITRIOL 0.25 MCG CAPSULE PO SCH ×2 (08:40→20:15)
[2021-11-18] MEDS: ATORVASTATIN 40 MG TAB PO SCH (08:40)
[2021-11-18] MEDS: BRIMONIDINE TARTRATE-P 0.15% 5 ML BTL OPB SCH ×2 (08:40→20:15)
[2021-11-18] MEDS: cloNIDine HCL 0.1 MG TAB PO SCH ×2 (08:41→20:16)
[2021-11-18] MEDS: CYANOCOBALAMIN (B-12) 100 MCG TABLET PO SCH (08:42)
[2021-11-18] MEDS: DOCUSATE SODIUM 100 MG CAP PO SCH ×2 (08:43→20:16)
[2021-11-18] MEDS: FOLIC ACID 1 MG TAB PO SCH (08:43)
[2021-11-18] MEDS: METOPROLOL SUCC 50MG EXT REL TAB PO SCH (08:45)
[2021-11-18] MEDS: MULTIVITAMIN TAB PO SCH (08:45)
[2021-11-18] MEDS: INSULIN ASPART PER UNIT SC SCH ×4 (08:58→20:17)
[2021-11-18] MEDS ORDERED: INSULIN GLARGINE SOLOSTAR 100 UNITS/ML 3 ML PEN SC ONE (09:00)
--- NOTE | 2021-11-18 09:40 | Pharmacy Report ---
Pharmacy [facility] Short Note - Date of Service November 18, 2021 - Assessment & Plan Assessment 71 year old M receiving IV vancomycin for treatment of osteomyelitis. Pertinent microbiologic data includes: diptheroids growing in 1/4 blood cultures and left foot cultures growing alcaligenes faecalis and citrobacter koseri both sensitive to cefepime. Day # 7 of antimicrobial therapy. Plan Vancomycin * Random level is 21.6 * Random level slightly supra-therapeutic * HD was performed on 11/17 for 3 hours * Goal target vancomycin level is 15-20 mcg/mL Cefepime * 2g IV q24h Pharmacy will continue to follow and will adjust dose/frequency as necessary. Thank you.
--- NOTE | 2021-11-18 10:05 | Pharmacy Report ---
Pharmacy Glycemic Short Note 2 - Date of Service November 18, 2021 - Glycemic Short BSG Results (Last 24 hours): 11/17/21 11/17/21 11/17/21 11:27 16:07 20:07 POC Glucose 124 H 184 H 144 H 11/18/21 07:22 POC Glucose 184 H OUTPATIENT ANTIDIABETIC REGIMEN: * Lantus 50 units SC PM * HbA1c: 7.8% (11/13/21) ASSESSMENT: 11/18/21 * Patient received 13 units of insulin yesterday (10 units of basal and 3 units of bolus). * BSGs yesterday were [phone] mg/dL. Fasting this morning is 184 mg/dL -- significantly increased from yesterday. Basal rate had been decreased yesterday due to prolonged poor PO intake. * Increase basal rate to 15 units daily (5 units in morning and 10 units at night for easier titration). * Continue Novolog. 11/16: * Patient received total 46 units of insulin yesterday; 25 units of basal and 21 units bolus * BSGs yesterday were [phone] mg/dl. Fasting BSG today was 149 mg/dl. * Novolog parameters tightened further this AM. 11/15: * Patient received total of 29 units of insulin yesterday; 15 units basal and 14 units bolus. * BSGs yesterday were [phone]. Fasting BSG today was 178 mg/dl. Basal insulin dose scale increased today at HS. * Novolog CF and CR also tightened this AM. 11/13 * BSGs have been very tightly controlled with no insulin so far this admission, ranging 71-94 mg/dL * Patient is now accepting of HD if needed, per nephrology notes. Will follow. * First documented meal at lunchtime (40 g of carbs), will initiate Lantus scale this evening to provide basal if needed now that patient is eating * Continues on daptomycin/cefepime for treatment of diabetic foot infection/osteomyelitis of left foot * Orthopedics/vascular surgery consulted, patient likely to require significant debridement 11/12 * 71 yo admitted secondary to osteomyelitis. Pharmacy has been consulted to assist with inpatient glycemic management. * Ordered a type 2 diabetic diet. Currently on Daptomycin and Cefepime. SCr at 7.18 mg/dL (patient is ESRD but refuses HD). * Did take 50 units of Lantus evening prior to admission. * Will hold Lantus for now given BSGs. * Start Novolog only. Target BSG of 110-140 mg/dL to help with infection and promote wound healing. PLAN FOR INPATIENT GLYCEMIC CONTROL: * Basal insulin * Lantus 5 units SQ qAM + 10 units SQ qPM * Bolus insulin * NovoLog per scale ACHS or Q6hrs while NPO * Goal Range: Low 110 mg/dL - High 140 mg/dL * Correction Factor: 18 mg/dL/unit * Nutritional / Prandial insulin per carb ratio of 1 unit per 6 grams CHO consumed
--- NOTE | 2021-11-18 11:02 | Nephrology Progress Note ---
Date of Service November 18, 2021 Assessment & Plan (1) ESRD (end stage renal disease): (2) Acute kidney injury: (3) Anemia: (4) Secondary hyperparathyroidism of renal origin: Plan: ESRD with history of advanced CKD secondary to diabetic nephropathy, admitted with nonhealing at left foot ulcer, status post BKA on 11/16/2021. The started on hemodialysis on 11/15/2021 via tunneled dialysis catheter for non recovery from EARLENE with underlying advanced CKD. Tolerated 1st dialysis treatment, tunneled dialysis catheter functioning well. -- had 2nd dialysis treatment yesterday, heparin free. HD on Friday. -- dose medications for GFR less than 10, left arm nephrology precaution for future vascular access for dialysis -- ROBERTH 20597 units x 1 dose on 11/17/21 -- waiting on outpt HD set up at [facility] will follow Admission and Anticipated Discharge Date Admission Date: November 12, 2021 Subjective [place] has been feeling better, decent po intake. Status post left BKA on 11/16/21, pain controlled. Denies any specific symptom. No shortness of breath. Blood pressure acceptable. Electrolyte acceptable. Hemoglobin stable. Review of Systems Review of Systems: Detailed review of system was otherwise unremarkable except mentioned above. Physical Exam Constitutional: WD/WN, vitals as above no acute distress Eyes: + anicteric sclerae Respiratory: no respiratory distress Auscultation: lungs clear to auscultation bilaterally Cardiovascular: Rate/Rhythm: regular rate and regular rhythm Heart Sounds: normal S1 and normal S2 Extremities: no edema Neurologic: no focal motor deficits and not confused Psychiatric: Orientation: alert and oriented x 3 Results & Data ([facility]) Vital Signs (Past 12 Hours) Vital Signs Temp Pulse Pulse Resp BP Pulse Ox 11/18/21 07:30 37.3 C 94 H 30 H 120/61 94 11/18/21 07:00 78 11/18/21 05:00 37.4 C 84 18 115/61 93 11/17/21 23:17 37.2 C 77 18 107/71 96 PG Care Time/CCT Total # of Minutes Spent Total Time Spent with Patient: Total time spent is greater than 50% in coordination of care (as documented) at patient's floor/unit and/or counseling patient: Coding Level of Care Code 88322 Subseq Hosp Care Lvl 2 Diagnoses ESRD (end stage renal disease) N18.6 Acute kidney injury N17.9 Anemia D64.9 Secondary hyperparathyroidism of renal origin N25.81
[2021-11-18] MEDS: oxyCODONE/ACETAMINOPHEN 5mg/325mg TAB PO PRN (11:48)
[2021-11-18] MEDS: HEPARIN SODIUM/DEXTROSE 25,000 UNITS/500 ML BAG IV SCH (12:53)
--- NOTE | 2021-11-18 14:37 | Hospitalist Progress Note ---
Date of Service November 18, 2021 Assessment & Plan (1) Osteomyelitis: Plan: 71 yo M w/ PMH of CKD stage IV, uncontrolled diabetes mellitus with peripheral neuropathy, hypertension, SUKHWINDER, and HLD presented 11/12 to our ED at referral of PCP for evaluation of SOB. Patient main concern was shortness of breath which was present for 5 days prior to admission however he was not aware of his left foot infection complicated with necrotic tissue. Pt does have peripheral neurop athy and states no sensation below his knees. 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 on admission, exam with necrotic tissue involving the left fourth and fifth toe and plantar surface of the left foot. - LLE Doppler negative for DVT - LLE arterial duplex positive for hemodynamically significant stenosis in the distal anterior tibial artery and dorsalis pedis artery. - MRI foot and ankle 11/13 shows soft tissues ulcer of lateral forefoot with cellulitis with OM of fifth metatarsal head and phalanges with soft tissue gas of forefoot ?secondary to direct extension from soft tissue ulcer vs necrotizing fascitis; tenosynovitis of extensor digitorum - Currently on IV vanc and cefepime- Seen by ID 11/14- recommendations noted - s/p left BKA 11/16 by ortho- Await final pathology results- Believe antibiotics can be discontinued in next couple days if pathology and clx negative- will discuss with ID (2) Atrial fibrillation with RVR, new onset- since 11/15/21, still in rate controlled Afib, asymptomatic. TTE reviewed, no new change. Seen by cardio- Remains on amiodarone drip and heparin drip- Cardiol following. (3) EARLENE on Chronic renal insufficiency, stage IV (severe), now ESRD - Permacath placed 11/15, had 1st HD 11/15, 2nd HD 11/17 per nephro - Losartan and furosemide on hold. Hold nephrotoxics, ABx dosing per pharmacy based on renal function (4) Hypoxia: CXR and chest clear, stable on 2 L of NC, wean down as tolerated, continue incentive spirometer. S/p 2 U of PRBC transfusion. Anemia and deconditioning likely contributing. Avoid aggressive IVF given his ESRD. (5) Anemia of CKD: Hgb 7.5 on presentation (baseline ~ 10.0) and s/p 2 U of PRBC, now Hb >8. Check intermittently, transfuse as needed. Aranesp therapy per nephro. Watch for bleeding while on anticoagulation (6) Diabetes mellitus, type 2: Hgb A1c 7.8 10/2021; diabetic management per pharmacy (7) Hypothyroidism: Continue levothyroxine (8) Pulmonary arterial hypertension: Appears euvolemic, hold furosemide due to EARLENE (9) Hypertension- stable, continue norvasc and toprol with hold parameters 10) Peripheral artery disease LLE- LLE arterial duplex with hemodynamically significant stenosis of distal ant tibial artery and dorsalis pedis artery; Seen by vascular surgery- no intervention needed and can proceed with ortho surgery. DVT prophylaxis: Heparin drip Dispo: PCU for amiodarone drip and telemetry. S/p left BKA, awaiting pathology results. Admission and Anticipated Discharge Date Admission Date: November 12, 2021 Subjective Patient was seen and examined at bedside. Complains of pain at surgical site 7 out of 10. Denies any other new issues. No more nausea or vomiting. Oral intake okay. Physical Exam Physical Exam: General: Lying in bed, not in acute distress, on 2 L NC HEENT: EOMI, PJ, MMM Chest: Right sided permacath. Clear breath sounds bilaterally, no wheezes or crackles CVS: Irregular rate and rhythm, normal heart sounds, no murmur Abdomen: Soft, non tender, not distended, normal bowel sounds Neuro: Awake, alert, oriented, conversing well, non focal Extremities: Right great toe amputation; Left BKA Results & Data Results & Data ([facility]) Vital Signs (Past 12 Hours) Vital Signs Temp Pulse Pulse Resp BP Pulse Ox 11/18/21 11:00 36.7 C 77 30 H 104/63 94 11/18/21 07:30 37.3 C 94 H 30 H 120/61 94 11/18/21 07:00 78 11/18/21 05:00 37.4 C 84 18 115/61 93 Laboratory Results Short CBC 11/18/21 Range/Units 07:12 WBC 22.27 H (4.8-10.8) K/uL Hgb 8.1 L (14.0-18.0) g/dL Hct 24.5 L (42-52) % Plt Count 302 (130-400) K/uL Medications Administered Current Inpatient Medications Acetaminophen (Acetaminophen 325 Mg Tab) 650 mg PO Q4H PRN PRN Reason: Pain or Fever Stop: 12/12/21 14:38 Allopurinol (Allopurinol 100 Mg Tab) 50 mg PO DAILY BERTHA Stop: 12/13/21 08:59 Last Admin: 11/18/21 08:38 Dose: 50 mg Documented by: Amlodipine Besylate (Amlodipine Besylate 5 Mg Tab) 5 mg PO DAILY BERTHA Stop: 12/13/21 08:59 Last Admin: 11/15/21 10:17 Dose: 5 mg Documented by: Aspirin (Aspirin 81 Mg Ectab) 81 mg PO DAILY BERTHA Stop: 12/13/21 08:59 Last Admin: 11/18/21 08:39 Dose: 81 mg Documented by: Atorvastatin Calcium (Atorvastatin 40 Mg Tab) 40 mg PO DAILY BERTHA Stop: 12/13/21 08:59 Last Admin: 11/18/21 08:40 Dose: 40 mg Documented by: Bisacodyl (Bisacodyl 10 Mg Supp) 10 mg IN DAILY PRN PRN Reason: Constipation Stop: 12/16/21 19:47 Brimonidine Tartrate (Brimonidine Tartrate-P 0.15% 5 Ml Btl) 1 drops OPB BID BERTHA Stop: 12/12/21 20:59 Last Admin: 11/18/21 08:40 Dose: 1 drops Documented by: Calcitriol (Calcitriol 0.25 Mcg Capsule) 0.5 mcg PO BID BERTHA Stop: 12/12/21 20:59 Last Admin: 11/18/21 08:40 Dose: 0.5 mcg Documented by: Clonidine HCl (Clonidine Hcl 0.1 Mg Tab) 0.1 mg PO BID BERTHA Stop: 12/12/21 20:59 Last Admin: 11/18/21 08:41 Dose: 0.1 mg Documented by: Cyanocobalamin (Cyanocobalamin (B-12) 100 Mcg Tablet) 100 mcg PO QAM BERTHA Stop: 11/27/21 09:01 Last Admin: 11/18/21 08:42 Dose: 100 mcg Documented by: Dextrose (Dextrose 50% 50 Ml Syringe) 25 - 50 ml IV UD PRN; Protocol PRN Reason: Hypoglycemia Protocol Stop: 12/12/21 17:14 Diphenhydramine HCl (Diphenhydramine Capsule 25 Mg Cap) 25 mg PO Q8H PRN PRN Reason: Itching Stop: 12/16/21 19:47 Docusate Sodium (Docusate Sodium 100 Mg Cap) 100 mg PO BID [facility] Stop: 12/16/21 20:59 Last Admin: 11/18/21 08:43 Dose: 100 mg Documented by: Folic Acid (Folic Acid 1 Mg Tab) 1 mg PO QAM BERTHA Stop: 12/12/21 09:01 Last Admin: 11/18/21 08:43 Dose: 1 mg Documented by: Glucagon (Glucagon For Inj 1 Mg Vial) 1 mg IM UD PRN; Protocol PRN Reason: Hypoglycemia Protocol Stop: 12/12/21 17:14 Glucose (Glucose 40% Gel 15 Gm Tube) 15 - 30 gm PO UD PRN; Protocol PRN Reason: Hypoglycemia Protocol Stop: 12/12/21 17:14 Glucose (Glucose 10 Tabs/Tube) 4 - 8 tabs PO UD PRN; Protocol PRN Reason: Hypoglycemia Protocol Stop: 12/12/21 17:14 Hydromorphone HCl (Hydromorphone Inj 0.5 Mg/0.5 Ml Syr) 0.5 mg IV Q4H PRN PRN Reason: Pain or Pre PT Stop: 11/30/21 19:47 Amiodarone HCl/Dextrose (Nexterone / D5w) 360 mg in 200 mls @ 16.667 mls/hr IV .Q12H [facility] Stop: 12/15/21 18:59 Last Admin: 11/18/21 02:25 Dose: 0.5 mg/min, 16.7 mls/hr Documented by: Cefepime HCl 1,000 mg/ Syringe 11.3 mls @ 5.5 mls/min IV DAILY@1600 [facility]; Protocol Stop: 12/28/21 15:59 Last Admin: 11/17/21 17:33 Dose: 5.5 mls/min Documented by: Heparin Sodium/Dextrose (Heparin Sodium/Dextrose) 25,000 units in 500 mls @ 31 mls/hr IV .Q16H8M [facility]; Protocol Stop: 12/17/21 06:44 Last Admin: 11/18/21 12:53 Dose: 1,550 units/hr, 31 mls/hr Documented by: Insulin Aspart (Insulin Aspart Per Unit) 0 units SC [facility]; Protocol Stop: 12/12/21 17:29 Last Admin: 11/18/21 12:13 Dose: 4 units Documented by: Insulin Glargine (Insulin Glargine Solostar 100 Units/Ml 3 Ml Pen) 10 units SC [facility]; Protocol Stop: 12/18/21 20:59 Latanoprost (Latanoprost 0.005% Op Soln 2.5 Ml Btl) 1 drops OP [facility] Stop: 12/12/21 20:59 Last Admin: 11/17/21 20:30 Dose: 1 drops Documented by: Levothyroxine Sodium (Levothyroxine Sodium 50 Mcg Tablet) [facility] Stop: 12/13/21 06:29 Last Admin: 11/18/21 06:21 Dose: 50 mcg Documented by: Magnesium Hydroxide (Magnesium Hydroxide Susp 30 Ml Udc) 30 ml PO Q6H PRN PRN Reason: Constipation Stop: 12/16/21 19:47 Metoclopramide HCl (Metoclopramide Hcl Inj 5 Mg/Ml 2 Ml Vial) 10 mg IV Q6H PRN PRN Reason: Nausea And Vomiting Stop: 12/16/21 19:47 Last Admin: 11/17/21 09:46 Dose: 10 mg Documented by: Metoprolol Succinate (Metoprolol Succ 50mg Ext Rel Tab) [facility] Stop: 12/13/21 08:59 Last Admin: 11/18/21 08:45 Dose: 100 mg Documented by: Metoprolol Tartrate (Metoprolol Tartrate 1 Mg/Ml Vial) 5 mg IV Q4 PRN; Protocol PRN Reason: for sustained HR>120 Stop: 12/15/21 11:59 Miscellaneous (Carbohydrates For Hypoglycemia ) 15 - 30 gm PO UD PRN PRN Reason: Hypoglycemia Treatment Stop: 12/12/21 17:14 Miscellaneous Information (Pharmacy Glycemic Mgmt Consult) 1 ea N/A UD PRN PRN Reason: Consult Stop: 12/12/21 16:54 Miscellaneous Information (Vancomycin Consult Active) 1 ea N/A UD PRN PRN Reason: Consult Stop: 12/16/21 12:39 Multivitamins (Multivitamin Tab) 1 tab PO QAM [facility] Stop: 12/17/21 08:59 Last Admin: 11/18/21 08:45 Dose: 1 tab Documented by: Naloxone HCl (Naloxone Hcl 0.4 Mg/1 Ml Vial/Carp) 0.1 mg IV Q5M PRN PRN Reason: Oversedation/Resp Depression Stop: 12/16/21 19:47 Ondansetron HCl (Ondansetron Inj 2 Mg/Ml 2 Ml Vial) 4 mg IV Q6H PRN PRN Reason: Nausea And Vomiting Stop: 12/16/21 19:47 Last Admin: 11/18/21 11:40 Dose: 4 mg Documented by: Oxycodone/Acetaminophen (Oxycodone/Acetaminophen 5mg/325mg Tab) 1 - 2 tab PO Q4H PRN PRN Reason: Moderate Pain Stop: 11/28/21 12:41 Last Admin: 11/18/21 11:48 Dose: 2 tab Documented by: Sennosides (Senna 8.6 Mg Tab) 17.2 mg PO [facility] Stop: 12/16/21 20:59 Last Admin: 11/17/21 20:25 Dose: 17.2 mg Documented by: (1) Osteomyelitis Laterality: unspecified laterality Osteomyelitis location: foot Osteomyelitis type: unspecified type Qualified Code(s): M86.9 - Osteomyelitis, unspecified
[2021-11-18 15:15] LABS: Partial Thromboplastin Ratio 2.3
[2021-11-18 15:28] LABS: Partial Thromboplastin Time 62.2 Seconds (21.0-31.0)
[2021-11-18] MEDS: CEFEPIME 1,000 MG in SYRINGE 0 ML IV SCH (16:51)
[2021-11-18] MEDS: INSULIN GLARGINE SOLOSTAR 100 UNITS/ML 3 ML PEN SC SCH (20:18)
[2021-11-18] MEDS: LATANOPROST 0.005% OP SOLN 2.5 ML BTL OP SCH (20:19)
[2021-11-18] MEDS: SENNA 8.6 MG TAB PO SCH (20:19)
[2021-11-18 20:41] LABS: Partial Thromboplastin Ratio 2.5
[2021-11-19] MEDS: AMIODARONE / D5W 360 MG/200 ML BAG IV SCH ×3 (01:42→23:40)
[2021-11-19] MEDS: HEPARIN SODIUM/DEXTROSE 25,000 UNITS/500 ML BAG IV SCH ×2 (04:26→20:32)
[2021-11-19 07:39] LABS: Hematocrit (blood only) 23.1 % (42-52); Hemoglobin 7.5 g/dL (14.0-18.0); Mean Corpuscular Hemoglobin 27.9 pg (25-34); Mean Corpuscular Hgb Conc 32.5 g/dL (32-36); Mean Corpuscular Volume 85.9 fL (80-100); Mean Platelet Volume 10.2 fL (7.4-10.4); Nucleated RBC # (auto) 0.12 K/uL (0-0); Nucleated RBC % (auto) 0.7 %; Platelet Count 250 K/uL (130-400); RDW Coefficient of Variation 17.3 % (11.5-14.5); RDW Standard Deviation 54.9 fL (36.4-46.3); Red Blood Count 2.69 M/uL (4.7-6.1); White Blood Count 16.86 K/uL (4.8-10.8)
[2021-11-19] MEDS: LEVOTHYROXINE SODIUM 50 MCG TABLET PO SCH (07:41)
[2021-11-19] MEDS: INSULIN ASPART PER UNIT SC SCH ×4 (07:45→20:53)
[2021-11-19] MEDS: CYANOCOBALAMIN (B-12) 100 MCG TABLET PO SCH (07:48)
[2021-11-19] MEDS: ASPIRIN 81 MG ECTAB PO SCH (07:48)
[2021-11-19] MEDS: cloNIDine HCL 0.1 MG TAB PO SCH ×2 (07:48→20:49)
[2021-11-19] MEDS: DOCUSATE SODIUM 100 MG CAP PO SCH ×2 (07:49→20:49)
[2021-11-19] MEDS: ATORVASTATIN 40 MG TAB PO SCH (07:49)
[2021-11-19] MEDS: allopurinoL 100 MG TAB PO SCH (07:49)
[2021-11-19] MEDS: CALCITRIOL 0.25 MCG CAPSULE PO SCH ×2 (07:49→20:49)
[2021-11-19] MEDS: METOPROLOL SUCC 50MG EXT REL TAB PO SCH (07:49)
[2021-11-19] MEDS: FOLIC ACID 1 MG TAB PO SCH (07:50)
[2021-11-19] MEDS: BRIMONIDINE TARTRATE-P 0.15% 5 ML BTL OPB SCH ×2 (07:50→20:48)
[2021-11-19] MEDS: MULTIVITAMIN TAB PO SCH (07:50)
[2021-11-19 08:03] LABS: Partial Thromboplastin Ratio 2.2
[2021-11-19 08:05] LABS: Albumin Level 2.6 gm/dl (3.4-5.0); Calcium 8.1 mg/dl (8.5-10.1); Creatinine Clr Calc Pharmacy 14.9 ml/min; Est GFR (Non-African American) 8.6 ml/min; Phosphorus 7.4 mg/dl (2.5-4.9); Potassium 3.9 mmol/L (3.5-5.1)
[2021-11-19] MEDS ORDERED: SODIUM CHLORIDE 0.9% 250 ML IV PRN (08:18)
[2021-11-19 08:57] LABS: Partial Thromboplastin Time 61.3 Seconds (21.0-31.0)
[2021-11-19] MEDS ORDERED: INSULIN GLARGINE SOLOSTAR 100 UNITS/ML 3 ML PEN SC ONE (09:00)
--- NOTE | 2021-11-19 09:34 | Nephrology Progress Note ---
Date of Service November 19, 2021 Assessment & Plan (1) ESRD (end stage renal disease): (2) Acute kidney injury: (3) Anemia: (4) Secondary hyperparathyroidism of renal origin: Plan: ESRD with history of advanced CKD secondary to diabetic nephropathy, admitted with nonhealing at left foot ulcer, status post BKA on 11/16/2021. The started on hemodialysis on 11/15/2021 via tunneled dialysis catheter for non recovery from EARLENE with underlying advanced CKD. Tolerated 1st dialysis treatment, tunneled dialysis catheter functioning well. -- plan for 4 h HD today. -- dose medications for GFR less than 10, left arm nephrology precaution for future vascular access for dialysis -- ROBERTH 59027 units x 1 dose today -- waiting on outpt HD set up at [facility] will follow Admission and Anticipated Discharge Date Admission Date: November 12, 2021 Subjective Quincy was seen this am. Denies any specific symptom. No shortness of breath. Blood pressure acceptable. Electrolyte acceptable. Hemoglobin stable. Continues to have slow bleeding form TDC site requiring dressing changes twice daily. Review of Systems Review of Systems: Detailed review of system was otherwise unremarkable except mentioned above. Physical Exam Constitutional: WD/WN, vitals as above no acute distress Eyes: + anicteric sclerae Neck: normal visual inspection Respiratory: no respiratory distress Auscultation: lungs clear to auscultation bilaterally Cardiovascular: Rate/Rhythm: regular rate and regular rhythm Heart Sounds: normal S1 and normal S2 Extremities: no edema TDC site with bleeding Skin: no rashes Neurologic: no focal motor deficits and not confused Psychiatric: Orientation: alert and oriented x 3 Results & Data ([facility]) Vital Signs (Past 12 Hours) Vital Signs Temp Pulse Pulse Resp BP BP Pulse Ox 11/19/21 07:13 36.9 C 78 16 113/68 95 11/19/21 03:33 36.9 C 71 18 110/67 95 11/18/21 23:46 70 11/18/21 23:45 37.1 C 74 18 106/61 95 PG Care Time/CCT Total # of Minutes Spent Total Time Spent with Patient: Total time spent is greater than 50% in coordination of care (as documented) at patient's floor/unit and/or counseling patient: Coding Level of Care Code 39329 Subseq Hosp Care Lvl 3 Diagnoses ESRD (end stage renal disease) N18.6 Acute kidney injury N17.9 Anemia D64.9 Secondary hyperparathyroidism of renal origin N25.81
[2021-11-19] MEDS ORDERED: EPOETIN ALFA 20,000 UNITS/ML VIAL IV ONE (10:00)
--- NOTE | 2021-11-19 10:07 | Communication Note ---
Date of Service: November 19, 2021 Pt is POD #4 after permcath insertion for HD. Was found to be in Afib the day of placement and heparin drip was started. Per RN, they have been having dif ficulty getting him within therapeutic range; has been supratherapeutic. Heparin drip stopped this AM. Asked to see pt today d/t bleeding from TDC exit site noted yesterday. Large pressure dressing to exit site removed. Large clots noted under current dressing, but no active bleeding or hematoma noted. Per RN, pt scheduled for dialysis this afternoon. Recommend have IV team or HD RN change dressing to exit site immediately before or after HD today. If any further bleeding occurs, recommend hold pressure to vein insertion site and tunnel. OK to restart heparin tomorrow AM if no further bleeding. Please call if needed.
--- NOTE | 2021-11-19 12:20 | Pharmacy Report ---
Pharmacy Glycemic Short Note 2 - Date of Service November 19, 2021 - Glycemic Short BSG Results (Last 24 hours): 11/18/21 11/18/21 11/19/21 15:58 20:13 04:08 Glucose POC Glucose 162 H 270 H 252 H 11/19/21 11/19/21 11/19/21 07:09 07:14 11:09 Glucose 180 H POC Glucose 189 H 180 H OUTPATIENT ANTIDIABETIC REGIMEN: * Lantus 50 units SC PM * HbA1c: 7.8% (11/13/21) ASSESSMENT: 11/19/21 * Patient received 36 units of insulin yesterday (15 units of basal and 21 units of bolus). * BSGs yesterday were [phone] and fasting this morning was 189 mg/dL. * Increase basal to 20 units daily (~25% increase) as 10 units BID for easier titration. * Continue Novolog as BSGs stable throughout the day. 11/18/21 * Patient received 13 units of insulin yesterday (10 units of basal and 3 units of bolus). * BSGs yesterday were [phone] mg/dL. Fasting this morning is 184 mg/dL -- significantly increased from yesterday. Basal rate had been decreased yesterday due to prolonged poor PO intake. * Increase basal rate to 15 units daily (5 units in morning and 10 units at night for easier titration). * Continue Novolog. 11/16: * Patient received total 46 units of insulin yesterday; 25 units of basal and 21 units bolus * BSGs yesterday were [phone] mg/dl. Fasting BSG today was 149 mg/dl. * Novolog parameters tightened further this AM. 11/15: * Patient received total of 29 units of insulin yesterday; 15 units basal and 14 units bolus. * BSGs yesterday were [phone]. Fasting BSG today was 178 mg/dl. Basal insulin dose scale increased today at HS. * Novolog CF and CR also tightened this AM. 11/13 * BSGs have been very tightly controlled with no insulin so far this admission, ranging 71-94 mg/dL * Patient is now accepting of HD if needed, per nephrology notes. Will follow. * First documented meal at lunchtime (40 g of carbs), will initiate Lantus scale this evening to provide basal if needed now that patient is eating * Continues on daptomycin/cefepime for treatment of diabetic foot i nfection/osteomyelitis of left foot * Orthopedics/vascular surgery consulted, patient likely to require significant debridement 11/12 * 71 yo admitted secondary to osteomyelitis. Pharmacy has been consulted to assist with inpatient glycemic management. * Ordered a type 2 diabetic diet. Currently on Daptomycin and Cefepime. SCr at 7.18 mg/dL (patient is ESRD but refuses HD). * Did take 50 units of Lantus evening prior to admission. * Will hold Lantus for now given BSGs. * Start Novolog only. Target BSG of 110-140 mg/dL to help with infection and promote wound healing. PLAN FOR INPATIENT GLYCEMIC CONTROL: * Basal insulin * Lantus 10 units SQ BID * Bolus insulin * NovoLog per scale ACHS or Q6hrs while NPO * Goal Range: Low 110 mg/dL - High 140 mg/dL * Correction Factor: 18 mg/dL/unit * Nutritional / Prandial insulin per carb ratio of 1 unit per 6 grams CHO consumed
--- NOTE | 2021-11-19 14:54 | Hospitalist Progress Note ---
Date of Service November 19, 2021 Assessment & Plan (1) Osteomyelitis: Plan: 71 yo M w/ PMH of CKD stage IV, uncontrolled diabetes mellitus with peripheral neuropathy, hypertension, SUKHWINDER, and HLD presented 11/12 to our ED at referral of PCP for evaluation of SOB. Patient main concern was shortness of breath which was present for 5 days prior to admission however he was not aware of his left foot infection complicated with necrotic tissue. Pt does have peripheral neurop athy and states no sensation below his knees. 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 - Patient has remained afebrile, hemodynamically stable since admission. on admission, exam with necrotic tissue involving the left fourth and fifth toe and plantar surface of the left foot. - LLE Doppler negative for DVT - LLE arterial duplex positive for hemodynamically significant stenosis in the distal anterior tibial artery and dorsalis pedis artery. - MRI foot and ankle 11/13 shows soft tissues ulcer of lateral forefoot with cellulitis with OM of fifth metatarsal head and phalanges with soft tissue gas of forefoot ?secondary to direct extension from soft tissue ulcer vs necrotizing fascitis; tenosynovitis of extensor digitorum - s/p left BKA 11/16 by ortho- Await final pathology results- OR culture from 11/16 with Citrobacter. Ortho recommending 2 weeks of IV antibiotics. Discussed with ID Dr. Jansen today. Okay to discontinue vanc and continue cefepime only, dosed at dialysis. Cipro is not a good option given his ESRD and Afib being on amio. Prior blood clx with diphtheroids- ID recommended repeating blood culture- which was ordered. (2) Atrial fibrillation with RVR, new onset- since 11/15/21, still in rate controlled Afib, asymptomatic. TTE reviewed, no new change. Seen by cardio- Remains on amiodarone drip. Heparin drip on hold due to bleeding. (3) EARLENE on Chronic renal insufficiency, stage IV (severe), now ESRD - Permacath placed 11/15, had 1st HD 11/15, 2nd HD 11/17 per nephro - Losartan and furosemide on hold. Hold nephrotoxics, ABx dosing per pharmacy based on renal function (4) Hypoxia: CXR and chest clear, stable on 2 L of NC, wean down as tolerated, continue incentive spirometer. S/p 2 U of PRBC transfusion. Anemia and deconditioning likely contributing. Avoid aggressive IVF given his ESRD. (5) Anemia of CKD: Hgb 7.5 on presentation (baseline ~ 10.0) and s/p 2 U of PRBC, now Hb >8. Check intermittently, transfuse as needed. Aranesp therapy per nephro. Watch for bleeding while on anticoagulation (6) Diabetes mellitus, type 2: Hgb A1c 7.8 10/2021; diabetic management per pharmacy (7) Hypothyroidism: Continue levothyroxine (8) Pulmonary arterial hypertension: Appears euvolemic, hold furosemide due to EARLENE (9) Hypertension- stable, continue norvasc and toprol with hold parameters 10) Peripheral artery disease LLE- LLE arterial duplex with hemodynamically significant stenosis of distal ant tibial artery and dorsalis pedis artery; Seen by vascular surgery- no intervention needed 11) Bleeding- patient has oozing from permacath site as well as left BKA site. Hemoglobin dropped. Discussed with vascular surgery and orthopedics. Recommendation from vascular surgery noted. Stop heparin drip, 1 unit blood transfusion, okay to resume heparin drip from tomorrow if no further bleeding per vascular surgery. Recheck labs in AM. Orthopedics to evaluate later today. DVT prophylaxis: Heparin drip on hold due to bleeding Dispo: PCU for amiodarone drip and telemetry. S/p left BKA, awaiting pathology results. Admission and Anticipated Discharge Date Admission Date: November 12, 2021 Subjective Patient was seen and examined at bedside. He states he feels exhausted/tired. He has been having oozing from his permacath site and left BKA site overnight. Denies any chest pain or shortness of breath, fever or chills. No other issues. Physical Exam Physical Exam: General: Lying in bed, not in acute distress, on 2 L NC HEENT: EOMI, PJ, MMM Chest: Right sided permacath with oozing and hence dressed. clear breath sounds bilaterally, no wheezes or crackles CVS: Irregular rate and rhythm, normal heart sounds, no murmur Abdomen: Soft, non tender, not distended, normal bowel sounds Neuro: Awake, alert, oriented, conversing well, non focal Extremities: Right great toe amputation; Left BKA site with resting soaked with blood Results & Data Results & Data ([facility]) Vital Signs (Past 12 Hours) Vital Signs Temp Pulse Pulse Resp BP BP Pulse Ox 11/19/21 07:13 36.9 C 78 16 113/68 95 11/19/21 03:33 36.9 C 71 18 110/67 95 11/18/21 23:46 70 11/18/21 23:45 37.1 C 74 18 106/61 95 Laboratory Results Short CBC 11/19/21 Range/Units 07:09 WBC 16.86 H (4.8-10.8) K/uL Hgb 7.5 L (14.0-18.0) g/dL Hct 23.1 L (42-52) % Plt Count 250 (130-400) K/uL BMP 11/19/21 07:09 Sodium 135 L Potassium 3.9 Chloride 97 L Carbon Dioxide 22 BUN 85 H Creatinine 6.09 H* Glucose 180 H Calcium 8.1 L Liver Function 11/19/21 Range/Units 07:09 Albumin 2.6 L (3.4-5.0) gm/dl Medications Administered Current Inpatient Medications Acetaminophen (Acetaminophen 325 Mg Tab) 650 mg PO Q4H PRN PRN Reason: Pain or Fever Stop: 12/12/21 14:38 Allopurinol (Allopurinol 100 Mg Tab) 50 mg PO DAILY BERTHA Stop: 12/13/21 08:59 Last Admin: 11/19/21 07:49 Dose: 50 mg Documented by: Amlodipine Besylate (Amlodipine Besylate 5 Mg Tab) 5 mg PO DAILY BERTHA Stop: 12/13/21 08:59 Last Admin: 11/15/21 10:17 Dose: 5 mg Documented by: Aspirin (Aspirin 81 Mg Ectab) 81 mg PO DAILY BERTHA Stop: 12/13/21 08:59 Last Admin: 11/19/21 07:48 Dose: 81 mg Documented by: Atorvastatin Calcium (Atorvastatin 40 Mg Tab) 40 mg PO DAILY BERTHA Stop: 12/13/21 08:59 Last Admin: 11/19/21 07:49 Dose: 40 mg Documented by: Bisacodyl (Bisacodyl 10 Mg Supp) 10 mg SC DAILY PRN PRN Reason: Constipation Stop: 12/16/21 19:47 Brimonidine Tartrate (Brimonidine Tartrate-P 0.15% 5 Ml Btl) 1 drops OPB BID [facility] Stop: 12/12/21 20:59 Last Admin: 11/19/21 07:50 Dose: 1 drops Documented by: Calcitriol (Calcitriol 0.25 Mcg Capsule) 0.5 mcg PO BID BERTHA Stop: 12/12/21 20:59 Last Admin: 11/19/21 07:49 Dose: 0.5 mcg Documented by: Clonidine HCl (Clonidine Hcl 0.1 Mg Tab) 0.1 mg PO BID [facility] Stop: 12/12/21 20:59 Last Admin: 11/19/21 07:48 Dose: 0.1 mg Documented by: Cyanocobalamin (Cyanocobalamin (B-12) 100 Mcg Tablet) 100 mcg PO QAM [facility] Stop: 11/27/21 09:01 Last Admin: 11/19/21 07:48 Dose: 100 mcg Documented by: Dextrose (Dextrose 50% 50 Ml Syringe) 25 - 50 ml IV UD PRN; Protocol PRN Reason: Hypoglycemia Protocol Stop: 12/12/21 17:14 Diphenhydramine HCl (Diphenhydramine Capsule 25 Mg Cap) 25 mg PO Q8H PRN PRN Reason: Itching Stop: 12/16/21 19:47 Docusate Sodium (Docusate Sodium 100 Mg Cap) 100 mg PO BID [facility] Stop: 12/16/21 20:59 Last Admin: 11/19/21 07:49 Dose: 100 mg Documented by: Folic Acid (Folic Acid 1 Mg Tab) 1 mg PO QAM [facility] Stop: 12/12/21 09:01 Last Admin: 11/19/21 07:50 Dose: 1 mg Documented by: Glucagon (Glucagon For Inj 1 Mg Vial) 1 mg IM UD PRN; Protocol PRN Reason: Hypoglycemia Protocol Stop: 12/12/21 17:14 Glucose (Glucose 40% Gel 15 Gm Tube) 15 - 30 gm PO UD PRN; Protocol PRN Reason: Hypoglycemia Protocol Stop: 12/12/21 17:14 Glucose (Glucose 10 Tabs/Tube) 4 - 8 tabs PO UD PRN; Protocol PRN Reason: Hypoglycemia Protocol Stop: 12/12/21 17:14 Hydromorphone HCl (Hydromorphone Inj 0.5 Mg/0.5 Ml Syr) 0.5 mg IV Q4H PRN PRN Reason: Pain or Pre PT Stop: 11/30/21 19:47 Amiodarone HCl/Dextrose (Nexterone / D5w) 360 mg in 200 mls @ 16.667 mls/hr IV .Q12H [facility]ERTHA Stop: 12/15/21 18:59 Last Admin: 11/19/21 13:10 Dose: 0.5 mg/min, 16.7 mls/hr Documented by: Cefepime HCl 1,000 mg/ Syringe 11.3 mls @ 5.5 mls/min IV DAILY@1600 BERTHA; Protocol Stop: 01/02/22 15:59 Last Admin: 11/18/21 16:51 Dose: 5.5 mls/min Documented by: Heparin Sodium/Dextrose (Heparin Sodium/Dextrose) 25,000 units in 500 mls @ 0 mls/hr IV .Q0M BERTHA; Protocol Stop: 12/17/21 06:44 Last Titration: 11/19/21 08:14 Dose: 0 units/hr, 0 mls/hr Documented by: Sodium Chloride (Nss) 250 mls @ 15 mls/hr IV .[id number] PRN PRN Reason: For Transfusion Stop: 11/19/21 18:18 Insulin Aspart (Insulin Aspart Per Unit) 0 units SC ACHS [facility]; Protocol Stop: 12/12/21 17:29 Last Admin: 11/19/21 11:55 Dose: 6 units Documented by: Insulin Glargine (Insulin Glargine Solostar 100 Units/Ml 3 Ml Pen) 10 units SC HS BERTHA; Protocol Stop: 11/19/21 23:59 Last Admin: 11/18/21 20:18 Dose: 10 units Documented by: Insulin Glargine (Insulin Glargine Solostar 100 Units/Ml 3 Ml Pen) 10 units SC BID BERTHA; Protocol Stop: 12/20/21 08:59 Latanoprost (Latanoprost 0.005% Op Soln 2.5 Ml Btl) 1 drops OP HS BERTHA Stop: 12/12/21 20:59 Last Admin: 11/18/21 20:19 Dose: 1 drops Documented by: Levothyroxine Sodium (Levothyroxine Sodium 50 Mcg Tablet) 50 mcg PO DAILYBB [facility]ERTHA Stop: 12/13/21 06:29 Last Admin: 11/19/21 07:41 Dose: 50 mcg Documented by: Magnesium Hydroxide (Magnesium Hydroxide Susp 30 Ml Udc) 30 ml PO Q6H PRN PRN Reason: Constipation Stop: 12/16/21 19:47 Metoclopramide HCl (Metoclopramide Hcl Inj 5 Mg/Ml 2 Ml Vial) 10 mg IV Q6H PRN PRN Reason: Nausea And Vomiting Stop: 12/16/21 19:47 Last Admin: 11/17/21 09:46 Dose: 10 mg Documented by: Metoprolol Succinate (Metoprolol Succ 50mg Ext Rel Tab) 100 mg PO [facility] Stop: 12/13/21 08:59 Last Admin: 11/19/21 07:49 Dose: 100 mg Documented by: Metoprolol Tartrate (Metoprolol Tartrate 1 Mg/Ml Vial) 5 mg IV Q4 PRN; Protocol PRN Reason: for sustained HR>120 Stop: 12/15/21 11:59 Miscellaneous (Carbohydrates For Hypoglycemia ) 15 - 30 gm PO UD PRN PRN Reason: Hypoglycemia Treatment Stop: 12/12/21 17:14 Miscellaneous Information (Pharmacy Glycemic Mgmt Consult) 1 ea N/A UD PRN PRN Reason: Consult Stop: 12/12/21 16:54 Multivitamins (Multivitamin Tab) 1 tab PO [facility] Stop: 12/17/21 08:59 Last Admin: 11/19/21 07:50 Dose: 1 tab Documented by: Naloxone HCl (Naloxone Hcl 0.4 Mg/1 Ml Vial/Carp) 0.1 mg IV Q5M PRN PRN Reason: Oversedation/Resp Depression Stop: 12/16/21 19:47 Ondansetron HCl (Ondansetron Inj 2 Mg/Ml 2 Ml Vial) 4 mg IV Q6H PRN PRN Reason: Nausea And Vomiting Stop: 12/16/21 19:47 Last Admin: 11/18/21 11:40 Dose: 4 mg Documented by: Oxycodone/Acetaminophen (Oxycodone/Acetaminophen 5mg/325mg Tab) 1 - 2 tab PO Q4H PRN PRN Reason: Moderate Pain Stop: 11/28/21 12:41 Last Admin: 11/18/21 11:48 Dose: 2 tab Documented by: Seneduarsides (Senna 8.6 Mg Tab) 17.2 mg PO HS BERTHA Stop: 12/16/21 20:59 Last Admin: 11/18/21 20:19 Dose: 17.2 mg Documented by: (1) Osteomyelitis Laterality: unspecified laterality Osteomyelitis location: foot Osteomyelitis type: unspecified type Qualified Code(s): M86.9 - Osteomyelitis, unspecified
--- NOTE | 2021-11-19 17:00 | Orthopedic Progress Note ---
Date of Service November 19, 2021 Assessment & Plan (1) Diabetic foot ulcer associated with type 2 diabetes mellitus: Plan: POD #3 s/p left below knee amputation Dressing change today. There is a moderate amount of bloody discharge at the medial aspect of the dressing which appears to be from the removed Hemovac site. During dressing change, there was no bloody drainage from either Hemovac site or the incision. ice/elevate NWB left leg Orthopedics to sign off at this time. The patient will follow up at the [facility] office approximately 1 week after discharge. I discussed with medicine the purulent area that it tracked along the peroneals to the level of the knee. He may require 2 weeks of antibiotics before discontinuing antibiotic treatment. Admission and Anticipated Discharge Date Admission Date: November 12, 2021 Subjective Patient states the left leg has been doing well. Having pain in the leg, particularly when the leg is manipulated. Physical Exam Constitutional: WD/WN, vitals as above + ill appearing and + morbidly obese; no acute distress Musculoskeletal: Knee: + surgical incision (Well approximated left BKA incision.) and + joint line tenderness (Tender at the left BKA site during dressing change.); no skin erythema and no ecchymosis Results & Data ([facility]) Vital Signs (Past 12 Hours) Vital Signs Temp Pulse Pulse Pulse Resp BP BP 11/19/21 16:40 79 136/83 11/19/21 16:20 80 126/85 11/19/21 16:00 78 126/89 11/19/21 15:47 78 11/19/21 15:44 69 127/77 11/19/21 15:20 76 129/74 11/19/21 15:00 76 117/74 11/19/21 14:40 62 108/65 11/19/21 14:21 36.8 C 71 11/19/21 14:00 11/19/21 13:20 37.1 C 81 22 120/70 11/19/21 12:48 36.9 C 90 22 113/74 11/19/21 11:48 37.2 C 76 22 126/73 11/19/21 11:18 37.0 C 76 24 113/73 11/19/21 11:03 37.5 C 80 20 127/78 11/19/21 10:47 36.9 C 81 18 130/73 11/19/21 07:13 36.9 C 78 16 113/68 Pulse Ox Pulse Ox 11/19/21 16:40 11/19/21 16:20 11/19/21 16:00 11/19/21 15:47 11/19/21 15:44 11/19/21 15:20 11/19/21 15:00 11/19/21 14:40 11/19/21 14:21 11/19/21 14:00 95 11/19/21 13:20 95 11/19/21 12:48 95 11/19/21 11:48 95 11/19/21 11:18 94 11/19/21 11:03 93 11/19/21 10:47 94 11/19/21 07:13 95
[2021-11-19] MEDS: CEFEPIME 1,000 MG in SYRINGE 0 ML IV SCH (18:43)
[2021-11-19] MEDS: LATANOPROST 0.005% OP SOLN 2.5 ML BTL OP SCH (20:48)
[2021-11-19] MEDS: SENNA 8.6 MG TAB PO SCH (20:49)
[2021-11-19] MEDS: INSULIN GLARGINE SOLOSTAR 100 UNITS/ML 3 ML PEN SC SCH (20:50)
[2021-11-20] MEDS: LEVOTHYROXINE SODIUM 50 MCG TABLET PO SCH (05:39)
[2021-11-20 07:01] LABS: Basophils # (auto) 0.01 K/uL (0-0.2); Basophils % (auto) 0.1 %; Eosinophils # (auto) 0.13 K/uL (0-0.5); Eosinophils % (auto) 0.9 %; Hematocrit (blood only) 26.9 % (42-52); Hemoglobin 8.7 g/dL (14.0-18.0); Immature Granulocytes # (auto) 0.45 K/uL (0.00-0.02); Immature Granulocytes % (auto) 3.1 %; Lymphocytes # (auto) 1.48 K/uL (1.2-3.4); Lymphocytes % (auto) 10.1 %; Mean Corpuscular Hemoglobin 28.2 pg (25-34); Mean Corpuscular Hgb Conc 32.3 g/dL (32-36); Mean Corpuscular Volume 87.1 fL (80-100); Mean Platelet Volume 9.6 fL (7.4-10.4); Monocytes # (auto) 0.85 K/uL (0.11-0.59); Monocytes % (auto) 5.8 %; Neutrophils # (auto) 11.72 K/uL (1.4-6.5); Nucleated RBC % (auto) 1.3 %; Platelet Count 266 K/uL (130-400); RDW Coefficient of Variation 16.8 % (11.5-14.5); RDW Standard Deviation 53.7 fL (36.4-46.3); Red Blood Count 3.09 M/uL (4.7-6.1); White Blood Count 14.64 K/uL (4.8-10.8)
[2021-11-20 07:13] LABS: Partial Thromboplastin Ratio 1.2; Partial Thromboplastin Time 32.5 Seconds (21.0-31.0)
[2021-11-20 07:23] LABS: BUN Creatinine Ratio 10.8 (10-20); Calcium 8.3 mg/dl (8.5-10.1); Est GFR (Non-African American) 12.9 ml/min; Potassium 3.7 mmol/L (3.5-5.1)
[2021-11-20] MEDS: INSULIN ASPART PER UNIT SC SCH ×4 (08:25→20:32)
[2021-11-20] MEDS: INSULIN GLARGINE SOLOSTAR 100 UNITS/ML 3 ML PEN SC SCH ×2 (08:30→20:32)
[2021-11-20] MEDS: ASPIRIN 81 MG ECTAB PO SCH (08:35)
[2021-11-20] MEDS: allopurinoL 100 MG TAB PO SCH (08:35)
[2021-11-20] MEDS: CALCITRIOL 0.25 MCG CAPSULE PO SCH ×2 (08:36→20:13)
[2021-11-20] MEDS: cloNIDine HCL 0.1 MG TAB PO SCH ×2 (08:36→20:13)
[2021-11-20] MEDS: ATORVASTATIN 40 MG TAB PO SCH (08:36)
[2021-11-20] MEDS: DOCUSATE SODIUM 100 MG CAP PO SCH ×2 (08:37→20:13)
[2021-11-20] MEDS: METOPROLOL SUCC 50MG EXT REL TAB PO SCH (08:37)
[2021-11-20] MEDS: MULTIVITAMIN TAB PO SCH (08:37)
[2021-11-20] MEDS: CYANOCOBALAMIN (B-12) 100 MCG TABLET PO SCH (08:37)
[2021-11-20] MEDS: FOLIC ACID 1 MG TAB PO SCH (08:37)
[2021-11-20] MEDS: BRIMONIDINE TARTRATE-P 0.15% 5 ML BTL OPB SCH ×2 (08:39→20:13)
--- NOTE | 2021-11-20 09:31 | Nephrology Progress Note ---
Date of Service November 20, 2021 Assessment & Plan (1) ESRD (end stage renal disease): (2) Acute kidney injury: (3) Anemia: (4) Secondary hyperparathyroidism of renal origin: Plan: ESRD with history of advanced CKD secondary to diabetic nephropathy, admitted with nonhealing at left foot ulcer, status post BKA on 11/16/2021. The started on hemodialysis on 11/15/2021 via tunneled dialysis catheter for non recovery from EARLENE with underlying advanced CKD. Tolerated 1st dialysis treatment, tunneled dialysis catheter functioning well. -- continue IHD MWF -- dose medications for GFR less than 10, left arm nephrology precaution for future vascular access for dialysis -- ROBERTH 09893 units x 1 dose given on 11/19/21 -- waiting on outpt HD set up at [facility] will follow Admission and Anticipated Discharge Date Admission Date: November 12, 2021 Subjective Quincy was seen this am. Denies any specific symptom. No shortness of breath. Bloo d pressure acceptable. Electrolyte acceptable. Hemoglobin stable. Bleeding form TDC site stopped. Review of Systems Review of Systems: Detailed review of system was otherwise unremarkable except mentioned above. Physical Exam Constitutional: WD/WN, vitals as above no acute distress Eyes: + anicteric sclerae Neck: normal visual inspection Respiratory: no respiratory distress Auscultation: lungs clear to auscultation bilaterally Cardiovascular: Rate/Rhythm: regular rate and regular rhythm Heart Sounds: normal S1 and normal S2 Extremities: no edema Neurologic: no focal motor deficits and not confused Psychiatric: Orientation: alert and oriented x 3 Results & Data ([facility]) Vital Signs (Past 12 Hours) Vital Signs Temp Pulse Pulse Resp BP BP Pulse Ox 11/20/21 08:21 75 11/20/21 07:23 37.0 C 80 19 112/75 96 11/20/21 03:10 37.2 C 75 19 113/68 94 11/19/21 23:27 36.7 C 75 19 107/65 96 PG Care Time/CCT Total # of Minutes Spent Total Time Spent with Patient: Total time spent is greater than 50% in coordination of care (as documented) at patient's floor/unit and/or counseling patient: Coding Level of Care Code 38386 Subseq Hosp Care Lvl 2 Diagnoses ESRD (end stage renal disease) N18.6 Acute kidney injury N17.9 Anemia D64.9 Secondary hyperparathyroidism of renal origin N25.81
--- NOTE | 2021-11-20 09:59 | Cardiology Progress Note ---
Date of Service November 20, 2021 Assessment & Plan (1) Atrial fibrillation with rapid ventricular response: (2) Hypotension: (3) Dyspnea on exertion: (4) Anemia: (5) Dyslipidemia: Plan: ASSESSMENT/PLAN: 1. AFib with RVR:He remains in atrial fibrillation, the rate however is adequately controlled on his current medical regimen. We may want to consider cardioversion in the future, but first I want to convert him to oral amiodarone. I am going to repeat his liver function tests as he has been on IV amiodarone for 5 or 6 days. 2. Hypotension: BP has improved and patient currently normotensive. 3. Dyspnea on exertion:He is not short of breath however he is not very active either. 4. Anemia: As per primary hospitalist service. 5. Dyslipidemia: Continue statin therapy. Cardiology will continue to follow. Admission and Anticipated Discharge Date Admission Date: November 12, 2021 Subjective He was sleeping in bed when I saw him this morning, however he tells me he feels quite well and is not short of breath and has no palpitations. Physical Exam Physical Exam: Constitutional: Alert, cooperative and in no distress. HEENT: Unremarkable Neck: No jugular venous distention, carotid pulses are irregular but otherwise normal and equal bilaterally without bruits. Pulmonary: Clear to auscultation bilaterally. Cardiac: Irregular rhythm with a soft holosystolic murmur at the apex, no gallop or rub. Abdomen: Soft, nontender with normal bowel sounds. Extremities: No edema. Neurologic: No focal findings. Gait was not tested. Skin: No rash, ecchymoses or petechiae. Results & Data ([facility]) Vital Signs (Past 12 Hours) Vital Signs Temp Pulse Pulse Resp BP BP Pulse Ox 11/20/21 08:21 75 11/20/21 07:23 37.0 C 80 19 112/75 96 11/20/21 03:10 37.2 C 75 19 113/68 94 11/19/21 23:27 36.7 C 75 19 107/65 96 Laboratory Results Cardiac Enzymes 11/20/21 Range/Units 05:55 AST 98 H (13-39) U/L Coagulation 11/20/21 Range/Units 05:55 APTT 32.5 H (21.0-31.0) Seconds CBC 11/20/21 Range/Units 05:55 WBC 14.64 H (4.8-10.8) K/uL RBC 3.09 L (4.7-6.1) M/uL Hgb 8.7 L (14.0-18.0) g/dL Hct 26.9 L (42-52) % Plt Count 266 (130-400) K/uL Neut # (Auto) 11.72 H (1.4-6.5) K/uL Lymph # (Auto) 1.48 (1.2-3.4) K/uL [place] # (Auto) 0.85 H (0.11-0.59) K/uL Eos # (Auto) 0.13 (0-0.5) K/uL Baso # (Auto) 0.01 (0-0.2) K/uL Comprehensive Metabolic Panel 11/20/21 11/20/21 Range/Units 05:55 05:55 Sodium 138 (136-145) mmol/L Potassium 3.7 (3.5-5.1) mmol/L Chloride 99 (98-107) mmol/L Carbon Dioxide 27 (21-32) mmol/L BUN 47 H D (6-23) mg/dl Creatinine 4.35 H D (0.6-1.4) mg/dl Glucose 128 H (70-99(Fasting)) mg/dl Calcium 8.3 L (8.5-10.1) mg/dl Direct Bilirubin 0.2 (0-0.2) mg/dl AST 98 H (13-39) U/L ALT 50 (7-52) U/L Alkaline Phosphatase 71 (34-104) U/L Total Protein 7.1 (6.0-8.3) gm/dl Albumin 2.6 L (3.4-5.0) gm/dl Intake and Output 11/20/21 11/20/21 11/20/21 06:59 14:59 22:59 Intake Total 200 / 811.693 200 / 200 Balance 200 / 811.693 200 / 200 Intake: IV 200 / 501.693 200 / 200 Amiodarone / D5w 360 mg In 200 200 / 391.493 200 / 200 ml @ 0.5 MG/MIN 16.667 mls/hr IV .Q12H [facility] Rx#:[id number] Other: # Unmeasured Voids 1 Weight 129 kg 129 kg Weight Measurement Method Built in [facility] Patient Weight 11/21/21 06:59 Weight 129 kg Diagnostic Findings Telemetry: Atrial fibrillation with a adequately controlled heart rate. PG Care Time/CCT Total # of Minutes Spent Total Time Spent with Patient: Total time spent is greater than 50% in coordination of care (as documented) at patient's floor/unit and/or counseling patient: Coding Level of Care Code 18943 Subseq Hosp Care Lvl 2 Diagnoses Atrial fibrillation with rapid ventricular response I48.91 Dyspnea on exertion R06.00 Hypotension I95.89 Hypotension type: other hypotension type Anemia N18.6; D63.1; Z99.2 Anemia type: due to chronic kidney disease Chronic kidney disease stage: on chronic dialysis Dyslipidemia E78.5 (1) Anemia Anemia type: due to chronic kidney disease Chronic kidney disease stage: on chronic dialysis Qualified Code(s): N18.6 - End stage renal disease; D63.1 - Anemia in chronic kidney disease; Z99.2 - Dependence on renal dialysis (2) Hypotension Hypotension type: other hypotension type Qualified Code(s): I95.89 - Other hypotension
[2021-11-20] MEDS: AMIODARONE 200 MG TAB PO SCH ×2 (10:52→17:10)
[2021-11-20 11:03] LABS: Albumin Level 2.6 gm/dl (3.4-5.0); Bilirubin Direct 0.2 mg/dl (0-0.2); Bilirubin,Total 0.3 mg/dl (0.2-1.0); Total Protein 7.1 gm/dl (6.0-8.3)
[2021-11-20] MEDS: AMIODARONE / D5W 360 MG/200 ML BAG IV SCH ×2 (12:45→22:51)
--- NOTE | 2021-11-20 15:29 | Hospitalist Progress Note ---
Date of Service November 20, 2021 Assessment & Plan (1) Osteomyelitis: Plan: 71 yo M w/ PMH of CKD stage IV, uncontrolled diabetes mellitus with peripheral neuropathy, hypertension, SUKHWINDER, and HLD presented 11/12 to our ED at referral of PCP for evaluation of SOB. Patient main concern was shortness of breath which was present for 5 days prior to admission however he was not aware of his left foot infection complicated with necrotic tissue. Pt does have peripheral neurop athy and states no sensation below his knees. 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 - Patient has remained afebrile, hemodynamically stable since admission. on admission, exam with necrotic tissue involving the left fourth and fifth toe and plantar surface of the left foot. - LLE Doppler negative for DVT - LLE arterial duplex positive for hemodynamically significant stenosis in the distal anterior tibial artery and dorsalis pedis artery. - MRI foot and ankle 11/13 shows soft tissues ulcer of lateral forefoot with cellulitis with OM of fifth metatarsal head and phalanges with soft tissue gas of forefoot ?secondary to direct extension from soft tissue ulcer vs necrotizing fascitis; tenosynovitis of extensor digitorum - s/p left BKA 11/16 by ortho- Await final pathology results- OR culture from 11/16 with Citrobacter. Ortho recommending 2 weeks of IV antibiotics. Discussed with ID Dr. Jansen 11/19. Okay to discontinue vanc and continue cefepime only, dosed at dialysis. Cipro is not a good option given his ESRD and Afib being on amio. Prior blood clx with diphtheroids- ID recommended repeating blood culture- which was ordered. Follow up (2) Atrial fibrillation with RVR, new onset- since 11/15/21, still in rate controlled Afib, asymptomatic. TTE reviewed, no new change. Seen by cardio- Remains on amiodarone drip being changed to po amiodarone from today, might need cardioversion. Will resume heparin drip today as no more bleeding and Hb stable. Vascular surgery and ortho okayed to start heparin drip from today. Repeat LFT in am. (3) EARLENE on CKD4, now ESRD - Permacath placed 11/15, had 1st HD 11/15, with subsequent HD 11/17 and 11/19 per nephro - Losartan and furosemide on hold. Hold nephrotoxics, ABx dosing per pharmacy based on renal function - abelardo need OP dialysis set up (4) Hypoxia: CXR and chest clear, stable on 2 L of NC, wean down as tolerated, continue incentive spirometer. S/p 2 U of PRBC transfusion. Anemia and deconditioning likely contributing. Avoid aggressive IVF given his ESRD. (5) Anemia of CKD: Hgb 7.5 on presentation (baseline ~ 10.0) and s/p 2 U of PRBC, now Hb >8. Check intermittently, transfuse as needed. Aranesp therapy per nephro. Watch for bleeding while on anticoagulation (6) Diabetes mellitus, type 2: Hgb A1c 7.8 10/2021; diabetic management per pharmacy (7) Hypothyroidism: Continue levothyroxine (8) Pulmonary arterial hypertension: Appears euvolemic, hold furosemide due to EARLENE (9) Hypertension- stable, continue norvasc and toprol with hold parameters 10) Peripheral artery disease LLE- LLE arterial duplex with hemodynamically significant stenosis of distal ant tibial artery and dorsalis pedis artery; Seen by vascular surgery- no intervention needed DVT prophylaxis: Heparin drip- resumed at low dose protocol- watch out for bleeding Dispo: PCU for amiodarone drip and telemetry. S/p left BKA on IV antibiotics for total of 2 weeks. Follow up on repeat blood culture from today prior to putting PICC line. Needs OP dialysis set up. Admission and Anticipated Discharge Date Admission Date: November 12, 2021 Subjective Patient was seen and examined at bedside. Feels tired, exhausted. No new issues. Currently denies any pain. No more bleeding. Denies any chest pain, shortness of breath, nausea or vomiting. States he does not get much sleep but he does not want any medication for that. Appetite is average. He did not want me to update his family. Physical Exam Physical Exam: General: Lying in bed, not in acute distress, on 2 L NC HEENT: EOMI, PJ, MMM Chest: Right sided permacath. clear breath sounds anteriorly, no wheezes or crackles CVS: Irregular rate and rhythm, normal heart sounds, no murmur Abdomen: Soft, non tender, not distended, normal bowel sounds Neuro: Awake, alert, oriented, conversing well, non focal Extremities: Right great toe amputation; Left BKA site with dressing Results & Data Results & Data ([facility]) Vital Signs (Past 12 Hours) Vital Signs Temp Pulse Pulse Resp BP Pulse Ox Pulse Ox 11/20/21 14:00 95 11/20/21 11:01 37.0 C 73 19 108/57 L 97 11/20/21 08:21 75 11/20/21 07:23 37.0 C 80 19 112/75 96 Laboratory Results Short CBC 11/20/21 Range/Units 05:55 WBC 14.64 H (4.8-10.8) K/uL Hgb 8.7 L (14.0-18.0) g/dL Hct 26.9 L (42-52) % Plt Count 266 (130-400) K/uL BMP 11/20/21 05:55 Sodium 138 Potassium 3.7 Chloride 99 Carbon Dioxide 27 BUN 47 H D Creatinine 4.35 H D Glucose 128 H Calcium 8.3 L Liver Function 11/20/21 Range/Units 05:55 Total Bilirubin 0.3 (0.2-1.0) mg/dl Direct Bilirubin 0.2 (0-0.2) mg/dl AST 98 H (13-39) U/L ALT 50 (7-52) U/L Alkaline Phosphatase 71 (34-104) U/L Albumin 2.6 L (3.4-5.0) gm/dl Medications Administered Current Inpatient Medications Acetaminophen (Acetaminophen 325 Mg Tab) 650 mg PO Q4H PRN PRN Reason: Pain or Fever Stop: 12/12/21 14:38 Allopurinol (Allopurinol 100 Mg Tab) 50 mg PO DAILY [facility] Stop: 12/13/21 08:59 Last Admin: 11/20/21 08:35 Dose: 50 mg Documented by: Amiodarone HCl (Amiodarone 200 Mg Tab) 400 mg PO BIDM [facility] Stop: 12/20/21 10:29 Last Admin: 11/20/21 10:52 Dose: 400 mg Documented by: Amlodipine Besylate (Amlodipine Besylate 5 Mg Tab) 5 mg PO DAILY [facility] Stop: 12/13/21 08:59 Last Admin: 11/15/21 10:17 Dose: 5 mg Documented by: Aspirin (Aspirin 81 Mg Ectab) 81 mg PO DAILY [facility] Stop: 12/13/21 08:59 Last Admin: 11/20/21 08:35 Dose: 81 mg Documented by: Atorvastatin Calcium (Atorvastatin 40 Mg Tab) 40 mg PO DAILY [facility] Stop: 12/13/21 08:59 Last Admin: 11/20/21 08:36 Dose: 40 mg Documented by: Bisacodyl (Bisacodyl 10 Mg Supp) 10 mg ND DAILY PRN PRN Reason: Constipation Stop: 12/16/21 19:47 Brimonidine Tartrate (Brimonidine Tartrate-P 0.15% 5 Ml Btl) 1 drops OPB BID [facility] Stop: 12/12/21 20:59 Last Admin: 11/20/21 08:39 Dose: 1 drops Documented by: Calcitriol (Calcitriol 0.25 Mcg Capsule) 0.5 mcg PO BID [facility] Stop: 12/12/21 20:59 Last Admin: 11/20/21 08:36 Dose: 0.5 mcg Documented by: Clonidine HCl (Clonidine Hcl 0.1 Mg Tab) 0.1 mg PO BID [facility] Stop: 12/12/21 20:59 Last Admin: 11/20/21 08:36 Dose: 0.1 mg Documented by: Cyanocobalamin (Cyanocobalamin (B-12) 100 Mcg Tablet) 100 mcg PO QAM [facility] Stop: 11/27/21 09:01 Last Admin: 11/20/21 08:37 Dose: 100 mcg Documented by: Dextrose (Dextrose 50% 50 Ml Syringe) 25 - 50 ml IV UD PRN; Protocol PRN Reason: Hypoglycemia Protocol Stop: 12/12/21 17:14 Diphenhydramine HCl (Diphenhydramine Capsule 25 Mg Cap) 25 mg PO Q8H PRN PRN Reason: Itching Stop: 12/16/21 19:47 Docusate Sodium (Docusate Sodium 100 Mg Cap) 100 mg PO BID [facility] Stop: 12/16/21 20:59 Last Admin: 11/20/21 08:37 Dose: 100 mg Documented by: Folic Acid (Folic Acid 1 Mg Tab) 1 mg PO QAM [facility] Stop: 12/12/21 09:01 Last Admin: 11/20/21 08:37 Dose: 1 mg Documented by: Glucagon (Glucagon For Inj 1 Mg Vial) 1 mg IM UD PRN; Protocol PRN Reason: Hypoglycemia Protocol Stop: 12/12/21 17:14 Glucose (Glucose 40% Gel 15 Gm Tube) 15 - 30 gm PO UD PRN; Protocol PRN Reason: Hypoglycemia Protocol Stop: 12/12/21 17:14 Glucose (Glucose 10 Tabs/Tube) 4 - 8 tabs PO UD PRN; Protocol PRN Reason: Hypoglycemia Protocol Stop: 12/12/21 17:14 Hydromorphone HCl (Hydromorphone Inj 0.5 Mg/0.5 Ml Syr) 0.5 mg IV Q4H PRN PRN Reason: Pain or Pre PT Stop: 11/30/21 19:47 Amiodarone HCl/Dextrose (Nexterone / D5w) 360 mg in 200 mls @ 16.667 mls/hr IV .Q12H [facility] Stop: 12/15/21 18:59 Last Admin: 11/20/21 12:45 Dose: 0.5 mg/min, 16.7 mls/hr Documented by: Cefepime HCl 1,000 mg/ Syringe 11.3 mls @ 5.5 mls/min IV DAILY@1600 [facility]; Protocol Stop: 01/02/22 15:59 Last Admin: 11/19/21 18:43 Dose: 5.5 mls/min Documented by: Heparin Sodium/Dextrose (Heparin Sodium/Dextrose) 25,000 units in 500 mls @ 27 mls/hr IV .[id number] [facility]; Protocol Stop: 12/20/21 15:14 Insulin Aspart (Insulin Aspart Per Unit) 0 units SC ACHS [facility]; Protocol Stop: 12/12/21 17:29 Last Admin: 11/20/21 12:02 Dose: 3 units Documented by: Insulin Glargine (Insulin Glargine Solostar 100 Units/Ml 3 Ml Pen) 10 units SC BID [facility]; Protocol Stop: 12/20/21 08:59 Last Admin: 11/20/21 08:30 Dose: 10 units Documented by: Latanoprost (Latanoprost 0.005% Op Soln 2.5 Ml Btl) 1 drops OP HS [facility] Stop: 12/12/21 20:59 Last Admin: 11/19/21 20:48 Dose: 1 drops Documented by: Levothyroxine Sodium (Levothyroxine Sodium 50 Mcg Tablet) [facility] Stop: 12/13/21 06:29 Last Admin: 11/20/21 05:39 Dose: 50 mcg Documented by: Magnesium Hydroxide (Magnesium Hydroxide Susp 30 Ml Udc) 30 ml PO Q6H PRN PRN Reason: Constipation Stop: 12/16/21 19:47 Metoclopramide HCl (Metoclopramide Hcl Inj 5 Mg/Ml 2 Ml Vial) 10 mg IV Q6H PRN PRN Reason: Nausea And Vomiting Stop: 12/16/21 19:47 Last Admin: 11/17/21 09:46 Dose: 10 mg Documented by: Metoprolol Succinate (Metoprolol Succ 50mg Ext Rel Tab) 100 mg PO [facility] Stop: 12/13/21 08:59 Last Admin: 11/20/21 08:37 Dose: 100 mg Documented by: Metoprolol Tartrate (Metoprolol Tartrate 1 Mg/Ml Vial) 5 mg IV Q4 PRN; Protocol PRN Reason: for sustained HR>120 Stop: 12/15/21 11:59 Miscellaneous (Carbohydrates For Hypoglycemia ) 15 - 30 gm PO UD PRN PRN Reason: Hypoglycemia Treatment Stop: 12/12/21 17:14 Miscellaneous Information (Pharmacy Glycemic Mgmt Consult) 1 ea N/A UD PRN PRN Reason: Consult Stop: 12/12/21 16:54 Multivitamins (Multivitamin Tab) 1 tab PO [facility] Stop: 12/17/21 08:59 Last Admin: 11/20/21 08:37 Dose: 1 tab Documented by: Naloxone HCl (Naloxone Hcl 0.4 Mg/1 Ml Vial/Carp) 0.1 mg IV Q5M PRN PRN Reason: Oversedation/Resp Depression Stop: 12/16/21 19:47 Ondansetron HCl (Ondansetron Inj 2 Mg/Ml 2 Ml Vial) 4 mg IV Q6H PRN PRN Reason: Nausea And Vomiting Stop: 12/16/21 19:47 Last Admin: 11/18/21 11:40 Dose: 4 mg Documented by: Oxycodone/Acetaminophen (Oxycodone/Acetaminophen 5mg/325mg Tab) 1 - 2 tab PO Q4H PRN PRN Reason: Moderate Pain Stop: 11/28/21 12:41 Last Admin: 11/18/21 11:48 Dose: 2 tab Documented by: Sennosides (Senna 8.6 Mg Tab) 17.2 mg PO HS [facility] Stop: 12/16/21 20:59 Last Admin: 11/19/21 20:49 Dose: 17.2 mg Documented by: (1) Osteomyelitis Laterality: unspecified laterality Osteomyelitis location: foot Osteomyelitis type: unspecified type Qualified Code(s): M86.9 - Osteomyelitis, unspecified
[2021-11-20] MEDS: Heparin IV Adult Wt-Based Low-Dose *NO* Bolus Protocol IV SCH ×2 (16:04→19:07)
[2021-11-20] MEDS: Heparin Adult LOW DOSE Wt-Based Dextrose 5% 25,000 units/500 mL IV SCH (16:16)
[2021-11-20] MEDS: CEFEPIME 1,000 MG in SYRINGE 0 ML IV SCH (16:28)
[2021-11-20] MEDS: LATANOPROST 0.005% OP SOLN 2.5 ML BTL OP SCH (20:12)
[2021-11-20] MEDS: SENNA 8.6 MG TAB PO SCH (20:13)
[2021-11-20 22:45] LABS: Partial Thromboplastin Ratio 1.5; Partial Thromboplastin Time 40.8 Seconds (21.0-31.0)
[2021-11-21] MEDS: LEVOTHYROXINE SODIUM 50 MCG TABLET PO SCH (05:25)
[2021-11-21 06:14] LABS: Hematocrit (blood only) 26.4 % (42-52); Hemoglobin 8.6 g/dL (14.0-18.0); Mean Corpuscular Hemoglobin 29.3 pg (25-34); Mean Corpuscular Hgb Conc 32.6 g/dL (32-36); Mean Corpuscular Volume 89.8 fL (80-100); Mean Platelet Volume 10.8 fL (7.4-10.4); Nucleated RBC # (auto) 0.17 K/uL (0-0); Nucleated RBC % (auto) 1.2 %; Platelet Count 239 K/uL (130-400); RDW Coefficient of Variation 17.2 % (11.5-14.5); RDW Standard Deviation 56.3 fL (36.4-46.3); Red Blood Count 2.94 M/uL (4.7-6.1); White Blood Count 14.27 K/uL (4.8-10.8)
[2021-11-21 06:38] LABS: BUN Creatinine Ratio 9.5 (10-20); C Reactive Protein 16.06 mg/dl (0-0.5); Creatinine Clr Calc Pharmacy 14.8 ml/min; Est GFR (African American) 10.2 ml/min; Est GFR (Non-African American) 8.8 ml/min; Potassium 3.9 mmol/L (3.5-5.1)
[2021-11-21 06:43] LABS: Partial Thromboplastin Ratio 1.7
[2021-11-21 06:44] LABS: Partial Thromboplastin Time 45.6 Seconds (21.0-31.0)
[2021-11-21] MEDS: MULTIVITAMIN TAB PO SCH (08:12)
[2021-11-21] MEDS: AMIODARONE 200 MG TAB PO SCH ×2 (08:12→17:34)
[2021-11-21] MEDS: ATORVASTATIN 40 MG TAB PO SCH (08:12)
[2021-11-21] MEDS: DOCUSATE SODIUM 100 MG CAP PO SCH ×2 (08:12→21:59)
[2021-11-21] MEDS: FOLIC ACID 1 MG TAB PO SCH (08:12)
[2021-11-21] MEDS: ASPIRIN 81 MG ECTAB PO SCH (08:13)
[2021-11-21] MEDS: allopurinoL 100 MG TAB PO SCH (08:13)
[2021-11-21] MEDS: CYANOCOBALAMIN (B-12) 100 MCG TABLET PO SCH (08:13)
[2021-11-21] MEDS: METOPROLOL SUCC 50MG EXT REL TAB PO SCH (08:14)
[2021-11-21] MEDS: cloNIDine HCL 0.1 MG TAB PO SCH ×2 (08:14→21:59)
[2021-11-21] MEDS: CALCITRIOL 0.25 MCG CAPSULE PO SCH ×2 (08:14→21:59)
[2021-11-21] MEDS: BRIMONIDINE TARTRATE-P 0.15% 5 ML BTL OPB SCH ×2 (08:21→21:58)
[2021-11-21] MEDS: Heparin IV Adult Wt-Based Low-Dose *NO* Bolus Protocol IV SCH ×4 (08:55→10:22)
[2021-11-21] MEDS: AMIODARONE / D5W 360 MG/200 ML BAG IV SCH (08:55)
[2021-11-21] MEDS: INSULIN ASPART PER UNIT SC SCH ×4 (08:56→21:57)
[2021-11-21] MEDS: INSULIN GLARGINE SOLOSTAR 100 UNITS/ML 3 ML PEN SC SCH ×2 (09:50→21:57)
[2021-11-21] MEDS: Heparin Adult LOW DOSE Wt-Based Dextrose 5% 25,000 units/500 mL IV SCH (10:20)
--- NOTE | 2021-11-21 11:06 | Hospitalist Progress Note ---
Date of Service November 21, 2021 Assessment & Plan (1) Osteomyelitis: Plan: 71 yo M w/ PMH of CKD stage IV, uncontrolled diabetes mellitus with peripheral neuropathy, hypertension, SUKHWINDER, and HLD presented 11/12 to our ED at referral of PCP for evaluation of SOB. Patient main concern was shortness of breath which was present for 5 days prior to admission however he was not aware of his left foot infection complicated with necrotic tissue. Pt does have peripheral neurop athy and states no sensation below his knees. 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 - Patient has remained afebrile, hemodynamically stable since admission. on admission, exam with necrotic tissue involving the left fourth and fifth toe and plantar surface of the left foot. - LLE Doppler negative for DVT - LLE arterial duplex positive for hemodynamically significant stenosis in the distal anterior tibial artery and dorsalis pedis artery. - MRI foot and ankle 11/13 shows soft tissues ulcer of lateral forefoot with cellulitis with OM of fifth metatarsal head and phalanges with soft tissue gas of forefoot ?secondary to direct extension from soft tissue ulcer vs necrotizing fascitis; tenosynovitis of extensor digitorum - s/p left BKA 11/16 by ortho-OR culture from 11/16 with Citrobacter. Ortho recommending 2 weeks of IV antibiotics. Discussed with ID Dr. Jansen 11/19. Okay to discontinue vanc and continue cefepime only, dosed at dialysis. Cipro is not a good option given his ESRD and Afib being on amio. Prior blood clx with diphtheroids- ID recommended repeating blood culture- Blood culture 11/20 negative to date (2) Atrial fibrillation with RVR, new onset - since 11/15/21, still in rate controlled Afib, asymptomatic. TTE reviewed, no new change. Seen by cardio- Plan to transition to PO amiodarone. Heparin drip held due to bleeding at stump and permacath site. Bleeding resolved, H/H remains stable. Cleared by Vascular surgery and ortho to resume heparin drip--resumed 11/20. -check LFTs (3) EARLENE on CKD4, now ESRD - Permacath placed 11/15, had 1st HD 11/15, with subsequent HD 11/17 and 11/19 per nephro - Losartan and furosemide on hold. Hold nephrotoxics, ABx dosing per pharmacy based on renal function - abelardo need OP dialysis set up (4) Hypoxia: -CXR and chest clear, stable on 2 L of NC, wean down as tolerated, continue incentive spirometer. S/p 2 U of PRBC transfusion. Anemia and deconditioning likely contributing. Avoid aggressive IVF given his ESRD. (5) Anemia of CKD: -Hgb 7.5 on presentation (baseline ~ 10.0) and s/p 2 U of PRBC, now Hb >8. Check intermittently, transfuse as needed. Aranesp therapy per nephro. Watch for bleeding while on anticoagulation (6) Diabetes mellitus, type 2: -Hgb A1c 7.8 10/2021; diabetic management per pharmacy (7) Hypothyroidism: -Continue levothyroxine (8) Pulmonary arterial hypertension: - Appears euvolemic, hold furosemide (9) Hypertension- - BP lower now that he is on dialysis. Home amlodipine discontinued. Still on Toprol and clonidine. Consider weaning off Clonidine 10) Peripheral artery disease LLE- LLE arterial duplex with hemodynamically significant stenosis of distal ant tibial artery and dorsalis pedis artery; Seen by vascular surgery- no intervention needed DVT prophylaxis: Heparin drip- resumed at low dose protocol- watch for bleeding Dispo: PCU for amiodarone load and telemetry. S/p left BKA on IV antibiotics for total of 2 weeks. Needs OP dialysis set up. Admission and Anticipated Discharge Date Admission Date: November 12, 2021 Subjective Currently getting dialysis Patient with no complaints No bleeding currently on heparin drip Physical Exam Physical Exam: Appears chronically ill, no acute distress Respiratory: breathing comfortably, no wheezing/rhonchi/rales Cardiovascular: regular rate and rhythm, no murmurs/rubs/gallops Gastrointestinal (Abdomen): soft, non tender Musculoskeletal: left BKA stump dressing is clean/dry/intact Results & Data Results & Data ([facility]) Vital Signs (Past 12 Hours) Vital Signs Temp Pulse Pulse Resp BP BP Pulse Ox 11/21/21 11:00 63 104/59 L 11/21/21 10:30 68 94/63 L 11/21/21 10:00 80 97/61 L 04/06/22 09:30 67 102/56 L 11/21/21 09:00 68 98/63 L 11/21/21 08:50 37 C 64 11/21/21 07:58 36.8 C 80 18 126/67 95 11/21/21 03:42 36.9 C 75 20 127/72 96 11/21/21 00:21 36.8 C 71 24 121/72 94 Laboratory Results Short CBC 11/21/21 Range/Units 05:30 WBC 14.27 H (4.8-10.8) K/uL Hgb 8.6 L (14.0-18.0) g/dL Hct 26.4 L (42-52) % Plt Count 239 (130-400) K/uL BMP 11/21/21 05:30 Sodium 137 Potassium 3.9 Chloride 98 Carbon Dioxide 26 BUN 57 H Creatinine 5.99 H* D Glucose 145 H Calcium 8.0 L Medications Administered Current Inpatient Medications Acetaminophen (Acetaminophen 325 Mg Tab) 650 mg PO Q4H PRN PRN Reason: Pain or Fever Stop: 12/12/21 14:38 Allopurinol (Allopurinol 100 Mg Tab) 50 mg PO DAILY [facility] Stop: 12/13/21 08:59 Last Admin: 11/21/21 08:13 Dose: 50 mg Documented by: Amiodarone HCl (Amiodarone 200 Mg Tab) 400 mg PO BIDM [facility] Stop: 12/20/21 10:29 Last Admin: 11/21/21 08:12 Dose: 400 mg Documented by: Amlodipine Besylate (Amlodipine Besylate 5 Mg Tab) 5 mg PO DAILY [facility] Stop: 12/13/21 08:59 Last Admin: 11/15/21 10:17 Dose: 5 mg Documented by: Aspirin (Aspirin 81 Mg Ectab) 81 mg PO DAILY [facility] Stop: 12/13/21 08:59 Last Admin: 11/21/21 08:13 Dose: 81 mg Documented by: Atorvastatin Calcium (Atorvastatin 40 Mg Tab) 40 mg PO DAILY [facility] Stop: 12/13/21 08:59 Last Admin: 11/21/21 08:12 Dose: 40 mg Documented by: Bisacodyl (Bisacodyl 10 Mg Supp) 10 mg IN DAILY PRN PRN Reason: Constipation Stop: 12/16/21 19:47 Brimonidine Tartrate (Brimonidine Tartrate-P 0.15% 5 Ml Btl) 1 drops OPB BID [facility] Stop: 12/12/21 20:59 Last Admin: 11/21/21 08:21 Dose: 1 drops Documented by: Calcitriol (Calcitriol 0.25 Mcg Capsule) 0.5 mcg PO BID [facility] Stop: 12/12/21 20:59 Last Admin: 11/21/21 08:14 Dose: 0.5 mcg Documented by: Clonidine HCl (Clonidine Hcl 0.1 Mg Tab) 0.1 mg PO BID [facility] Stop: 12/12/21 20:59 Last Admin: 11/21/21 08:14 Dose: 0.1 mg Documented by: Cyanocobalamin (Cyanocobalamin (B-12) 100 Mcg Tablet) 100 mcg PO QAM [facility] Stop: 11/27/21 09:01 Last Admin: 11/21/21 08:13 Dose: 100 mcg Documented by: Dextrose (Dextrose 50% 50 Ml Syringe) 25 - 50 ml IV UD PRN; Protocol PRN Reason: Hypoglycemia Protocol Stop: 12/12/21 17:14 Diphenhydramine HCl (Diphenhydramine Capsule 25 Mg Cap) 25 mg PO Q8H PRN PRN Reason: Itching Stop: 12/16/21 19:47 Docusate Sodium (Docusate Sodium 100 Mg Cap) 100 mg PO BID [facility] Stop: 12/16/21 20:59 Last Admin: 11/21/21 08:12 Dose: 100 mg Documented by: Folic Acid (Folic Acid 1 Mg Tab) 1 mg PO QAM [facility] Stop: 12/12/21 09:01 Last Admin: 11/21/21 08:12 Dose: 1 mg Documented by: Glucagon (Glucagon For Inj 1 Mg Vial) 1 mg IM UD PRN; Protocol PRN Reason: Hypoglycemia Protocol Stop: 12/12/21 17:14 Glucose (Glucose 40% Gel 15 Gm Tube) 15 - 30 gm PO UD PRN; Protocol PRN Reason: Hypoglycemia Protocol Stop: 12/12/21 17:14 Glucose (Glucose 10 Tabs/Tube) 4 - 8 tabs PO UD PRN; Protocol PRN Reason: Hypoglycemia Protocol Stop: 12/12/21 17:14 Hydromorphone HCl (Hydromorphone Inj 0.5 Mg/0.5 Ml Syr) 0.5 mg IV Q4H PRN PRN Reason: Pain or Pre PT Stop: 11/30/21 19:47 Amiodarone HCl/Dextrose (Nexterone / D5w) 360 mg in 200 mls @ 16.667 mls/hr IV .Q12H [facility] Stop: 12/15/21 18:59 Last Admin: 11/21/21 08:55 Dose: 0.5 mg/min, 16.7 mls/hr Documented by: Cefepime HCl 1,000 mg/ Syringe 11.3 mls @ 5.5 mls/min IV DAILY@1600 [facility]; Protocol Stop: 01/02/22 15:59 Last Admin: 11/20/21 16:28 Dose: 5.5 mls/min Documented by: Heparin Sodium/Dextrose (Heparin Sodium/Dextrose) 25,000 units in 500 mls @ 31 mls/hr IV .Q16H8M [facility]; Protocol Stop: 12/20/21 15:14 Last Admin: 11/21/21 10:20 Dose: 1,550 units/hr, 31 mls/hr Documented by: Insulin Aspart (Insulin Aspart Per Unit) 0 units SC ACHS [facility]; Protocol Stop: 12/12/21 17:29 Last Admin: 11/21/21 08:56 Dose: 11 units Documented by: Insulin Glargine (Insulin Glargine Solostar 100 Units/Ml 3 Ml Pen) 10 units SC BID [facility]; Protocol Stop: 12/20/21 08:59 Last Admin: 11/21/21 09:50 Dose: 10 units Documented by: Latanoprost (Latanoprost 0.005% Op Soln 2.5 Ml Btl) 1 drops OP HS [facility] Stop: 12/12/21 20:59 Last Admin: 11/20/21 20:12 Dose: 1 drops Documented by: Levothyroxine Sodium (Levothyroxine Sodium 50 Mcg Tablet) 50 mcg PO DAILYBB [facility] Stop: 12/13/21 06:29 Last Admin: 11/21/21 05:25 Dose: 50 mcg Documented by: Magnesium Hydroxide (Magnesium Hydroxide Susp 30 Ml Udc) 30 ml PO Q6H PRN PRN Reason: Constipation Stop: 12/16/21 19:47 Metoclopramide HCl (Metoclopramide Hcl Inj 5 Mg/Ml 2 Ml Vial) 10 mg IV Q6H PRN PRN Reason: Nausea And Vomiting Stop: 12/16/21 19:47 Last Admin: 11/17/21 09:46 Dose: 10 mg Documented by: Metoprolol Succinate (Metoprolol Succ 50mg Ext Rel Tab) [facility] Stop: 12/13/21 08:59 Last Admin: 11/21/21 08:14 Dose: 100 mg Documented by: Metoprolol Tartrate (Metoprolol Tartrate 1 Mg/Ml Vial) 5 mg IV Q4 PRN; Protocol PRN Reason: for sustained HR>120 Stop: 12/15/21 11:59 Miscellaneous (Carbohydrates For Hypoglycemia ) 15 - 30 gm PO UD PRN PRN Reason: Hypoglycemia Treatment Stop: 12/12/21 17:14 Miscellaneous Information (Pharmacy Glycemic Mgmt Consult) 1 ea N/A UD PRN PRN Reason: Consult Stop: 12/12/21 16:54 Multivitamins (Multivitamin Tab) 1 tab PO [facility] Stop: 12/17/21 08:59 Last Admin: 11/21/21 08:12 Dose: 1 tab Documented by: Naloxone HCl (Naloxone Hcl 0.4 Mg/1 Ml Vial/Carp) 0.1 mg IV Q5M PRN PRN Reason: Oversedation/Resp Depression Stop: 12/16/21 19:47 Ondansetron HCl (Ondansetron Inj 2 Mg/Ml 2 Ml Vial) 4 mg IV Q6H PRN PRN Reason: Nausea And Vomiting Stop: 12/16/21 19:47 Last Admin: 11/18/21 11:40 Dose: 4 mg Documented by: Oxycodone/Acetaminophen (Oxycodone/Acetaminophen 5mg/325mg Tab) 1 - 2 tab PO Q4H PRN PRN Reason: Moderate Pain Stop: 11/28/21 12:41 Last Admin: 11/18/21 11:48 Dose: 2 tab Documented by: Sennosides (Senna 8.6 Mg Tab) 17.2 mg PO [facility] Stop: 12/16/21 20:59 Last Admin: 11/20/21 20:13 Dose: 17.2 mg Documented by: (1) Osteomyelitis Laterality: unspecified laterality Osteomyelitis location: foot Osteomyelitis type: unspecified type Qualified Code(s): M86.9 - Osteomyelitis, unspecified
--- NOTE | 2021-11-21 11:34 | Cardiology Progress Note ---
Date of Service November 21, 2021 Assessment & Plan (1) Atrial fibrillation with rapid ventricular response: (2) Hypotension: (3) Dyspnea on exertion: (4) Anemia: (5) Dyslipidemia: (6) Anticoagulant long-term use: Plan: ASSESSMENT/PLAN: 1. AFib with RVR:He remains in atrial fibrillation, the rate however is adequately controlled on his current medical regimen. We may want to consider cardioversion in the future, but as long as he is asymptomatic I would continue amiodarone for around a month before I did that, possibly longer. Since he converted to atrial fibrillation while hospitalized this admission we know when it started and if he converts spontaneously on amiodarone that should be safe as he has been anticoagulated. I started him on oral amiodarone yesterday and will discontinue his IV amiodarone today. With this change to oral medications the level may drop and he may transiently have an increase in heart rate. His liver function tests are currently pending. 2. Hypotension: BP has improved and patient currently normotensive (although t he blood pressure is a little bit low on dialysis). 3. Dyspnea on exertion:He is not short of breath however he is not very active either. We can assess this when he moves around a little bit more to see whether he has symptomatic atrial fibrillation. 4. Anemia: As per primary hospitalist service. 5. Dyslipidemia: Continue statin therapy. 6. Anticoagulation: He remains on heparin, I would switch him to an oral agent when possible. I would favor one of the newer agents but will leave that up to nephrology. Cardiology will continue to follow. Admission and Anticipated Discharge Date Admission Date: November 12, 2021 Subjective He is undergoing dialysis today, he does not have any cardiovascular complaints although is a little tired of being in the hospital. He denies nausea (on amiodarone 400 mg twice a day started yesterday morning). Physical Exam Physical Exam: Constitutional: Alert, cooperative and in no distress. HEENT: Unremarkable Neck: No jugular venous distention, carotid pulses are irregular but otherwise normal and equal bilaterally without bruits. Pulmonary: Clear to auscultation bilaterally. Cardiac: Irregular rhythm with a soft holosystolic murmur at the apex, no gallop or rub. Abdomen: Soft, nontender with normal bowel sounds. Extremities: No edema. Neurologic: No focal findings. Gait was not tested. Skin: No rash, ecchymoses or petechiae. Results & Data ([facility]) Vital Signs (Past 12 Hours) Vital Signs Temp Pulse Pulse Resp BP BP Pulse Ox 11/21/21 11:00 63 104/59 L 11/21/21 10:30 68 94/63 L 11/21/21 10:00 80 97/61 L 11/21/21 09:30 67 102/56 L 11/21/21 09:00 68 98/63 L 11/21/21 08:50 37 C 64 11/21/21 07:58 36.8 C 80 18 126/67 95 11/21/21 03:42 36.9 C 75 20 127/72 96 11/21/21 00:21 36.8 C 71 24 121/72 94 Laboratory Results Coagulation 11/20/21 11/21/21 Range/Units 22:19 05:30 APTT 40.8 H 45.6 H* (21.0-31.0) Seconds CBC 11/21/21 Range/Units 05:30 WBC 14.27 H (4.8-10.8) K/uL RBC 2.94 L (4.7-6.1) M/uL Hgb 8.6 L (14.0-18.0) g/dL Hct 26.4 L (42-52) % Plt Count 239 (130-400) K/uL Comprehensive Metabolic Panel 11/21/21 Range/Units 05:30 Sodium 137 (136-145) mmol/L Potassium 3.9 (3.5-5.1) mmol/L Chloride 98 (98-107) mmol/L Carbon Dioxide 26 (21-32) mmol/L BUN 57 H (6-23) mg/dl Creatinine 5.99 H* D (0.6-1.4) mg/dl Glucose 145 H (70-99(Fasting)) mg/dl Calcium 8.0 L (8.5-10.1) mg/dl Intake and Output 11/20/21 11/21/21 11/21/21 22:59 06:59 14:59 Intake Total 346.87 / 596.87 50 / 596.87 489.913 / 489.913 Balance 346.87 / 596.87 50 / 596.87 489.913 / 489.913 Intake: IV 346.87 / 546.87 489.913 / 489.913 Amiodarone / D5w 360 mg In 200 168.67 / 368.67 168.113 / 168.113 ml @ 0.5 MG/MIN 16.667 mls/hr IV .Q12H BERTHA Rx#:[id number] Heparin Sodium/Dextrose 25,000 178.2 / 178.2 321.800 / 321.800 units In 500 ml @ 1,450 UNITS/ HR 29 mls/hr IV .[id number] BERTHA Rx #:[id number] Oral 0 / 50 50 / 50 Other: Weight 122.7 kg 122.7 kg Weight Measurement Method Built in Bedscale Built in Bedscale Patient Weight 11/22/21 06:59 Weight 122.7 kg Diagnostic Findings Telemetry: Atrial fibrillation with a heart rate of 60 to 70 bpm. PG Care Time/CCT Total # of Minutes Spent Total Time Spent with Patient: Total time spent is greater than 50% in coordination of care (as documented) at patient's floor/unit and/or counseling patient: Coding Level of Care Code 96312 Subseq Hosp Care Lvl 3 Diagnoses Atrial fibrillation with rapid ventricular response I48.91 Hypotension I95.89 Hypotension type: other hypotension type Dyspnea on exertion R06.00 Anemia N18.6; D63.1; Z99.2 Anemia type: due to chronic kidney disease Chronic kidney disease stage: on chronic dialysis Dyslipidemia E78.5 Anticoagulant long-term use Z79.01 (1) Hypotension Hypotension type: other hypotension type Qualified Code(s): I95.89 - Other hypotension (2) Anemia Anemia type: due to chronic kidney disease Chronic kidney disease stage: on chronic dialysis Qualified Code(s): N18.6 - End stage renal disease; D63.1 - Anemia in chronic kidney disease; Z99.2 - Dependence on renal dialysis
[2021-11-21 11:49] LABS: Albumin Level 2.6 gm/dl (3.4-5.0); Bilirubin Direct 0.1 mg/dl (0-0.2); Bilirubin,Total 0.3 mg/dl (0.2-1.0); Total Protein 6.9 gm/dl (6.0-8.3)
--- NOTE | 2021-11-21 11:59 | Nephrology Progress Note ---
Date of Service November 21, 2021 Assessment & Plan (1) ESRD (end stage renal disease): (2) Anemia: (3) Secondary hyperparathyroidism of renal origin: Plan: ESRD with history of advanced CKD secondary to diabetic nephropathy, admitted with nonhealing at left foot ulcer, status post BKA on 11/16/2021. The started on hemodialysis on 11/15/2021 via tunneled dialysis catheter for non recovery from EARLENE with underlying advanced CKD. Tolerated 1st dialysis treatment, t unneled dialysis catheter functioning well. Overall doing well, tolerating dialysis, otherwise asymptomatic. -- continue IHD MWF -- dose medications for GFR less than 10, left arm nephrology precaution for future vascular access for dialysis -- ROBERTH 42974 units x 1 dose given on 11/19/21 -- waiting on outpt HD set up at [facility] will follow Admission and Anticipated Discharge Date Admission Date: November 12, 2021 Subjective Quincy was seen this am while having HD. Has been tolerating dialysis, vital sign stable.. Denies any specific symptom. No shortness of breath. Blood pressure acceptable. Electrolyte acceptable. Hemoglobin low but stable. Review of Systems Review of Systems: Detailed review of system was otherwise unremarkable except mentioned above. Physical Exam Constitutional: WD/WN, vitals as above no acute distress Eyes: + anicteric sclerae Neck: normal visual inspection Respiratory: no respiratory distress Auscultation: lungs clear to auscultation bilaterally Cardiovascular: Rate/Rhythm: regular rate and regular rhythm Heart Sounds: normal S1 and normal S2 Extremities: no edema Skin: no rashes Neurologic: no focal motor deficits and not confused Psychiatric: Orientation: alert and oriented x 3 Results & Data ([facility]) Vital Signs (Past 12 Hours) Vital Signs Temp Pulse Pulse Resp BP BP Pulse Ox 11/21/21 11:30 78 100/56 L 11/21/21 11:00 63 104/59 L 11/21/21 10:30 68 94/63 L 11/21/21 10:00 80 97/61 L 11/21/21 09:30 67 102/56 L 11/21/21 09:00 68 98/63 L 11/21/21 08:50 37 C 64 11/21/21 07:58 36.8 C 80 18 126/67 95 11/21/21 03:42 36.9 C 75 20 127/72 96 11/21/21 00:21 36.8 C 71 24 121/72 94 PG Care Time/CCT Total # of Minutes Spent Total Time Spent with Patient: Total time spent is greater than 50% in coordination of care (as documented) at patient's floor/unit and/or counseling patient: Coding Level of Care Code 81745 Subseq Hosp Care Lvl 2 Diagnoses ESRD (end stage renal disease) N18.6 Anemia N18.6; D63.1; Z99.2 Anemia type: due to chronic kidney disease Chronic kidney disease stage: on chronic dialysis Secondary hyperparathyroidism of renal origin N25.81 (1) Anemia Anemia type: due to chronic kidney disease Chronic kidney disease stage: on chronic dialysis Qualified Code(s): N18.6 - End stage renal disease; D63.1 - Anemia in chronic kidney disease; Z99.2 - Dependence on renal dialysis
[2021-11-21 16:24] LABS: Partial Thromboplastin Ratio 1.9
[2021-11-21 16:43] LABS: Partial Thromboplastin Time 51.1 Seconds (21.0-31.0)
[2021-11-21] MEDS: CEFEPIME 1,000 MG in SYRINGE 0 ML IV SCH (17:26)
[2021-11-21] MEDS: LATANOPROST 0.005% OP SOLN 2.5 ML BTL OP SCH (22:00)
[2021-11-21] MEDS: SENNA 8.6 MG TAB PO SCH (22:00)
[2021-11-22] MEDS: Heparin Adult LOW DOSE Wt-Based Dextrose 5% 25,000 units/500 mL IV SCH ×2 (02:32→19:50)
[2021-11-22] MEDS: LEVOTHYROXINE SODIUM 50 MCG TABLET PO SCH ×2 (05:42→05:57)
[2021-11-22 06:05] LABS: Partial Thromboplastin Ratio 1.7
[2021-11-22] MEDS: AMIODARONE 200 MG TAB PO SCH ×2 (08:11→17:12)
[2021-11-22] MEDS: ASPIRIN 81 MG ECTAB PO SCH (08:12)
[2021-11-22] MEDS: ATORVASTATIN 40 MG TAB PO SCH (08:12)
[2021-11-22] MEDS: FOLIC ACID 1 MG TAB PO SCH (08:12)
[2021-11-22] MEDS: METOPROLOL SUCC 50MG EXT REL TAB PO SCH (08:12)
[2021-11-22] MEDS: allopurinoL 100 MG TAB PO SCH (08:12)
[2021-11-22] MEDS: MULTIVITAMIN TAB PO SCH (08:12)
[2021-11-22] MEDS: CALCITRIOL 0.25 MCG CAPSULE PO SCH ×2 (08:13→21:03)
[2021-11-22] MEDS: cloNIDine HCL 0.1 MG TAB PO SCH ×2 (08:13→20:59)
[2021-11-22] MEDS: DOCUSATE SODIUM 100 MG CAP PO SCH ×2 (08:13→21:00)
[2021-11-22] MEDS: CYANOCOBALAMIN (B-12) 100 MCG TABLET PO SCH (08:13)
[2021-11-22] MEDS: INSULIN GLARGINE SOLOSTAR 100 UNITS/ML 3 ML PEN SC SCH (08:15)
[2021-11-22] MEDS: BRIMONIDINE TARTRATE-P 0.15% 5 ML BTL OPB SCH ×2 (08:15→20:58)
[2021-11-22] MEDS: INSULIN ASPART PER UNIT SC SCH ×4 (08:19→21:23)
--- NOTE | 2021-11-22 09:31 | Nephrology Progress Note ---
Date of Service November 22, 2021 Assessment & Plan (1) ESRD (end stage renal disease): (2) Anemia: (3) Secondary hyperparathyroidism of renal origin: Plan: ESRD with history of advanced CKD secondary to diabetic nephropathy, admitted with nonhealing at left foot ulcer, status post BKA on 11/16/2021. The started on hemodialysis on 11/15/2021 via tunneled dialysis catheter for non recovery from EARLENE with underlying advanced CKD. Tolerated 1st dialysis treatment, t unneled dialysis catheter functioning well. Overall doing well, tolerating dialysis, otherwise asymptomatic. -- continue IHD MWF, next HD tomorrow -- dose medications for GFR less than 10, left arm nephrology precaution for future vascular access for dialysis -- ROBERTH 36553 units x 1 dose on 11/23/21 -- waiting on outpt HD set up at [facility] will follow Admission and Anticipated Discharge Date Admission Date: November 12, 2021 Subjective Quincy was seen this am. Denies any specific symptom. No shortness of breath. Blood pressure acceptable. Electrolyte acceptable. Review of Systems Review of Systems: Detailed review of system was otherwise unremarkable except mentioned above. Physical Exam Constitutional: WD/WN, vitals as above no acute distress Respiratory: no respiratory distress Auscultation: lungs clear to auscultation bilaterally Cardiovascular: Rate/Rhythm: regular rate and regular rhythm Heart Sounds: normal S1 and normal S2 Extremities: no edema Neurologic: no focal motor deficits and not confused Psychiatric: Orientation: alert and oriented x 3 Results & Data ([facility]) Vital Signs (Past 12 Hours) Vital Signs Temp Pulse Pulse Resp BP Pulse Ox 11/22/21 07:07 36.9 C 78 16 113/68 98 11/22/21 02:38 37 C 73 16 114/61 95 11/21/21 23:42 36.9 C 74 18 125/64 97 11/21/21 22:28 71 PG Care Time/CCT Total # of Minutes Spent Total Time Spent with Patient: Total time spent is greater than 50% in coordination of care (as documented) at patient's floor/unit and/or counseling patient: Coding Level of Care Code 11127 Subseq Hosp Care Lvl 2 Diagnoses ESRD (end stage renal disease) N18.6 Anemia N18.6; D63.1; Z99.2 Anemia type: due to chronic kidney disease Chronic kidney disease stage: on chronic dialysis Secondary hyperparathyroidism of renal origin N25.81 (1) Anemia Anemia type: due to chronic kidney disease Chronic kidney disease stage: on chronic dialysis Qualified Code(s): N18.6 - End stage renal disease; D63.1 - Anemia in chronic kidney disease; Z99.2 - Dependence on renal dialysis
[2021-11-22] MEDS ORDERED: bisacodyL 10 MG SUPP PR STA (10:20)
[2021-11-22] MEDS ORDERED: bisacodyL 10 MG SUPP PR PRN (10:21)
--- NOTE | 2021-11-22 15:14 | Hospitalist Progress Note ---
Date of Service November 22, 2021 Assessment & Plan (1) Osteomyelitis: Plan: 71 yo M w/ PMH of CKD stage IV, uncontrolled diabetes mellitus with peripheral neuropathy, hypertension, SUKHWINDER, and HLD presented 11/12 to our ED at referral of PCP for evaluation of SOB. Patient main concern was shortness of breath which was present for 5 days prior to admission however he was not aware of his left foot infection complicated with necrotic tissue. Pt does have peripheral neurop athy and states no sensation below his knees. 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 - Patient has remained afebrile, hemodynamically stable since admission. on admission, exam with necrotic tissue involving the left fourth and fifth toe and plantar surface of the left foot. - LLE Doppler negative for DVT - LLE arterial duplex positive for hemodynamically significant stenosis in the distal anterior tibial artery and dorsalis pedis artery. - MRI foot and ankle 11/13 shows soft tissues ulcer of lateral forefoot with cellulitis with OM of fifth metatarsal head and phalanges with soft tissue gas of forefoot ?secondary to direct extension from soft tissue ulcer vs necrotizing fascitis; tenosynovitis of extensor digitorum - s/p left BKA 11/16 by ortho-OR culture from 11/16 with Citrobacter. Ortho recommending 2 weeks of IV antibiotics. Discussed with ID Dr. Jansen 11/19. Okay to discontinue vanc and continue cefepime only (1gm IV daily) Cipro is not a good option given his ESRD and Afib being on amio. Prior blood clx with diphtheroids- ID recommended repeating blood culture- Blood culture 11/20 negative to date (2) Atrial fibrillation with RVR, new onset - since 11/15/21, still in rate controlled Afib, asymptomatic. TTE reviewed, no new change. Seen by cardio-transitioned to PO amiodarone. Heparin drip held due to bleeding at stump and permacath site. Bleeding resolved, H/H remains stable. Cleared by Vascular surgery and ortho to resume heparin drip--resumed 11/20. -no evidence of recurrent bleed. H/H remains stable. Will switch to NOAC. Discussed with Nephrology, Eliquis is fine. Discussed with pharmacy--> dosing will be Eliquis 5mg BID (3) EARLENE on CKD4, now ESRD - Permacath placed 11/15, had 1st HD 11/15, with subsequent HD 11/17 and 11/19 per nephro - Losartan and furosemide on hold. Hold nephrotoxics, ABx dosing per pharmacy based on renal function - abelardo need OP dialysis set up (4) Hypoxia: -CXR and chest clear, stable on 2 L of NC, wean down as tolerated, continue incentive spirometer. S/p 2 U of PRBC transfusion. Anemia and deconditioning likely contributing. Avoid aggressive IVF given his ESRD. (5) Anemia of CKD: -Hgb 7.5 on presentation (baseline ~ 10.0) and s/p 2 U of PRBC, now Hb >8. Check intermittently, transfuse as needed. Aranesp therapy per nephro. Watch for bleeding while on anticoagulation (6) Diabetes mellitus, type 2: -Hgb A1c 7.8 10/2021; diabetic management per pharmacy (7) Hypothyroidism: -Continue levothyroxine (8) Pulmonary arterial hypertension: - Appears euvolemic, hold furosemide (9) Hypertension- - BP lower now that he is on dialysis. Home amlodipine discontinued. Still on Toprol and clonidine. Consider weaning off Clonidine 10) Peripheral artery disease LLE- LLE arterial duplex with hemodynamically significant stenosis of distal ant tibial artery and dorsalis pedis artery; Seen by vascular surgery- no intervention needed DVT prophylaxis: Heparin drip--> starting Eliquis tonight Dispo: Patient is stable for SNF placement. Will need ultrasound guided IV prior to discharge ([facility]) Admission and Anticipated Discharge Date Admission Date: November 12, 2021 Subjective Feels tired Constipated, still no BM despite several laxatives. Received suppository, waiting for effect Physical Exam Physical Exam: Obese, laying in bed, appears tired but no acute distress Respiratory: breathing comfortably, no wheezing/rhonchi/rales Cardiovascular: irregular but not rapid, no murmurs/rubs Chest (Breasts): Additional Comments: left chest wall permacath site is clean/dry/intact Gastrointestinal (Abdomen): soft Musculoskeletal: left BKA dressing is clean/dry/intact Results & Data Results & Data ([facility]) Vital Signs (Past 12 Hours) Vital Signs Temp Pulse Resp BP Pulse Ox 11/22/21 11:02 37.1 C 89 20 139/63 94 11/22/21 07:07 36.9 C 78 16 113/68 98 Medications Administered Current Inpatient Medications Acetaminophen (Acetaminophen 325 Mg Tab) 650 mg PO Q4H PRN PRN Reason: Pain or Fever Stop: 12/12/21 14:38 Allopurinol (Allopurinol 100 Mg Tab) 50 mg PO DAILY BERTHA Stop: 12/13/21 08:59 Last Admin: 11/22/21 08:12 Dose: 50 mg Documented by: Amiodarone HCl (Amiodarone 200 Mg Tab) 400 mg PO BIDM BERTHA Stop: 12/20/21 10:29 Last Admin: 11/22/21 08:11 Dose: 400 mg Documented by: Amlodipine Besylate (Amlodipine Besylate 5 Mg Tab) 5 mg PO DAILY BERTHA Stop: 12/13/21 08:59 Last Admin: 11/15/21 10:17 Dose: 5 mg Documented by: Apixaban (Apixaban 5 Mg Tablet) 5 mg PO BID BERTHA Stop: 12/22/21 20:59 Aspirin (Aspirin 81 Mg Ectab) 81 mg PO DAILY BERTHA Stop: 12/13/21 08:59 Last Admin: 11/22/21 08:12 Dose: 81 mg Documented by: Atorvastatin Calcium (Atorvastatin 40 Mg Tab) 40 mg PO DAILY BERTHA Stop: 12/13/21 08:59 Last Admin: 11/22/21 08:12 Dose: 40 mg Documented by: Bisacodyl (Bisacodyl 10 Mg Supp) 10 mg [place] DAILY PRN PRN Reason: Constipation Stop: 12/16/21 19:47 Brimonidine Tartrate (Brimonidine Tartrate-P 0.15% 5 Ml Btl) 1 drops OPB BID BERTHA Stop: 12/12/21 20:59 Last Admin: 11/22/21 08:15 Dose: 1 drops Documented by: Calcitriol (Calcitriol 0.25 Mcg Capsule) 0.5 mcg PO BID BERTHA Stop: 12/12/21 20:59 Last Admin: 11/22/21 08:13 Dose: 0.5 mcg Documented by: Clonidine HCl (Clonidine Hcl 0.1 Mg Tab) 0.1 mg PO BID BERTHA Stop: 12/12/21 20:59 Last Admin: 11/22/21 08:13 Dose: 0.1 mg Documented by: Cyanocobalamin (Cyanocobalamin (B-12) 100 Mcg Tablet) 100 mcg PO QAM [facility] Stop: 11/27/21 09:01 Last Admin: 11/22/21 08:13 Dose: 100 mcg Documented by: Dextrose (Dextrose 50% 50 Ml Syringe) 25 - 50 ml IV UD PRN; Protocol PRN Reason: Hypoglycemia Protocol Stop: 12/12/21 17:14 Diphenhydramine HCl (Diphenhydramine Capsule 25 Mg Cap) 25 mg PO Q8H PRN PRN Reason: Itching Stop: 12/16/21 19:47 Docusate Sodium (Docusate Sodium 100 Mg Cap) 100 mg PO BID [facility] Stop: 12/16/21 20:59 Last Admin: 11/22/21 08:13 Dose: 100 mg Documented by: Epoetin Jaret (Epoetin Jaret 20,000 Units/Ml Vial) 20,000 units IV TODAY@1000 BERTHA Stop: 11/23/21 23:59 Folic Acid (Folic Acid 1 Mg Tab) [facility] Stop: 12/12/21 09:01 Last Admin: 11/22/21 08:12 Dose: 1 mg Documented by: Glucagon (Glucagon For Inj 1 Mg Vial) 1 mg IM UD PRN; Protocol PRN Reason: Hypoglycemia Protocol Stop: 12/12/21 17:14 Glucose (Glucose 40% Gel 15 Gm Tube) 15 - 30 gm PO UD PRN; Protocol PRN Reason: Hypoglycemia Protocol Stop: 12/12/21 17:14 Glucose (Glucose 10 Tabs/Tube) 4 - 8 tabs PO UD PRN; Protocol PRN Reason: Hypoglycemia Protocol Stop: 12/12/21 17:14 Hydromorphone HCl (Hydromorphone Inj 0.5 Mg/0.5 Ml Syr) 0.5 mg IV Q4H PRN PRN Reason: Pain or Pre PT Stop: 11/30/21 19:47 Cefepime HCl 1,000 mg/ Syringe 11.3 mls @ 5.5 mls/min IV DAILY@1600 BERTHA; Protocol Stop: 01/02/22 15:59 Last Admin: 11/21/21 17:26 Dose: 5.5 mls/min Documented by: Heparin Sodium/Dextrose (Heparin Sodium/Dextrose) 25,000 units in 500 mls @ 31 mls/hr IV .Q16H8M [facility]; Protocol Stop: 11/22/21 21:00 Last Titration: 11/22/21 06:54 Dose: 1,550 units/hr, 31 mls/hr Documented by: Insulin Aspart (Insulin Aspart Per Unit) 0 units SC ACHS [facility]; Protocol Stop: 12/12/21 17:29 Last Admin: 11/22/21 11:53 Dose: Not Given Documented by: Insulin Glargine (Insulin Glargine Solostar 100 Units/Ml 3 Ml Pen) 0 units SC [facility]; Protocol Stop: 12/22/21 20:59 Latanoprost (Latanoprost 0.005% Op Soln 2.5 Ml Btl) 1 drops OP [facility] Stop: 12/12/21 20:59 Last Admin: 11/21/21 22:00 Dose: 1 drops Documented by: Levothyroxine Sodium (Levothyroxine Sodium 50 Mcg Tablet) [facility] Stop: 12/13/21 06:29 Last Admin: 11/22/21 05:57 Dose: 50 mcg Documented by: Magnesium Hydroxide (Magnesium Hydroxide Susp 30 Ml Udc) 30 ml PO Q6H PRN PRN Reason: Constipation Stop: 12/16/21 19:47 Metoclopramide HCl (Metoclopramide Hcl Inj 5 Mg/Ml 2 Ml Vial) 10 mg IV Q6H PRN PRN Reason: Nausea And Vomiting Stop: 12/16/21 19:47 Last Admin: 11/17/21 09:46 Dose: 10 mg Documented by: Metoprolol Succinate (Metoprolol Succ 50mg Ext Rel Tab) 100 [facility] Stop: 12/13/21 08:59 Last Admin: 11/22/21 08:12 Dose: 100 mg Documented by: Metoprolol Tartrate (Metoprolol Tartrate 1 Mg/Ml Vial) 5 mg IV Q4 PRN; Protocol PRN Reason: for sustained HR>120 Stop: 12/15/21 11:59 Miscellaneous (Carbohydrates For Hypoglycemia ) 15 - 30 gm PO UD PRN PRN Reason: Hypoglycemia Treatment Stop: 12/12/21 17:14 Miscellaneous Information (Pharmacy Glycemic Mgmt Consult) 1 ea N/A UD PRN PRN Reason: Consult Stop: 12/12/21 16:54 Multivitamins (Multivitamin Tab) 1 tab PO QAM [facility] Stop: 12/17/21 08:59 Last Admin: 11/22/21 08:12 Dose: 1 tab Documented by: Naloxone HCl (Naloxone Hcl 0.4 Mg/1 Ml Vial/Carp) 0.1 mg IV Q5M PRN PRN Reason: Oversedation/Resp Depression Stop: 12/16/21 19:47 Ondansetron HCl (Ondansetron Inj 2 Mg/Ml 2 Ml Vial) 4 mg IV Q6H PRN PRN Reason: Nausea And Vomiting Stop: 12/16/21 19:47 Last Admin: 11/18/21 11:40 Dose: 4 mg Documented by: Oxycodone/Acetaminophen (Oxycodone/Acetaminophen 5mg/325mg Tab) 1 - 2 tab PO Q4H PRN PRN Reason: Moderate Pain Stop: 11/28/21 12:41 Last Admin: 11/18/21 11:48 Dose: 2 tab Documented by: Sennosides (Senna 8.6 Mg Tab) 17.2 mg PO [facility] Stop: 12/16/21 20:59 Last Admin: 11/21/21 22:00 Dose: 17.2 mg Documented by: (1) Osteomyelitis Laterality: unspecified laterality Osteomyelitis location: foot Osteomyelitis type: unspecified type Qualified Code(s): M86.9 - Osteomyelitis, unspecified
[2021-11-22] MEDS: CEFEPIME 1,000 MG in SYRINGE 0 ML IV SCH (17:12)
[2021-11-22] MEDS: APIXABAN 5 MG TABLET PO SCH (20:57)
[2021-11-22] MEDS ORDERED: STOP ORDER [HEPARIN DRIP] ONE (21:00)
[2021-11-22] MEDS ORDERED: INSULIN GLARGINE SOLOSTAR 100 UNITS/ML 3 ML PEN SC SCH (21:00)
[2021-11-22] MEDS: SENNA 8.6 MG TAB PO SCH (21:01)
[2021-11-22] MEDS: LATANOPROST 0.005% OP SOLN 2.5 ML BTL OP SCH (21:02)
[2021-11-23 05:21] LABS: Hematocrit (blood only) 26.4 % (42-52); Hemoglobin 8.2 g/dL (14.0-18.0); Mean Corpuscular Hemoglobin 28.2 pg (25-34); Mean Corpuscular Hgb Conc 31.1 g/dL (32-36); Mean Corpuscular Volume 90.7 fL (80-100); Mean Platelet Volume 9.7 fL (7.4-10.4); Platelet Count 183 K/uL (130-400); RDW Coefficient of Variation 17.3 % (11.5-14.5); RDW Standard Deviation 57.5 fL (36.4-46.3); Red Blood Count 2.91 M/uL (4.7-6.1); White Blood Count 15.97 K/uL (4.8-10.8)
[2021-11-23 05:30] LABS: Partial Thromboplastin Ratio 1.4; Partial Thromboplastin Time 38.8 Seconds (21.0-31.0)
[2021-11-23] MEDS: LEVOTHYROXINE SODIUM 50 MCG TABLET PO SCH (06:18)
[2021-11-23 06:40] LABS: Albumin Level 2.6 gm/dl (3.4-5.0); Calcium 7.8 mg/dl (8.5-10.1); Creatinine Clr Calc Pharmacy 15.1 ml/min; Est GFR (African American) 10.2 ml/min; Est GFR (Non-African American) 8.8 ml/min; Phosphorus 6.3 mg/dl (2.5-4.9); Potassium 3.9 mmol/L (3.5-5.1)
[2021-11-23] MEDS: INSULIN ASPART PER UNIT SC SCH ×4 (08:13→21:29)
[2021-11-23] MEDS: ATORVASTATIN 40 MG TAB PO SCH (08:19)
[2021-11-23] MEDS: CALCITRIOL 0.25 MCG CAPSULE PO SCH ×2 (08:19→21:26)
[2021-11-23] MEDS: allopurinoL 100 MG TAB PO SCH (08:19)
[2021-11-23] MEDS: FOLIC ACID 1 MG TAB PO SCH (08:19)
[2021-11-23] MEDS: DOCUSATE SODIUM 100 MG CAP PO SCH ×2 (08:20→21:27)
[2021-11-23] MEDS: AMIODARONE 200 MG TAB PO SCH ×2 (08:20→17:28)
[2021-11-23] MEDS: METOPROLOL SUCC 50MG EXT REL TAB PO SCH (08:20)
[2021-11-23] MEDS: cloNIDine HCL 0.1 MG TAB PO SCH ×2 (08:20→21:27)
[2021-11-23] MEDS: MULTIVITAMIN TAB PO SCH (08:20)
[2021-11-23] MEDS: CYANOCOBALAMIN (B-12) 100 MCG TABLET PO SCH (08:20)
[2021-11-23] MEDS: ASPIRIN 81 MG ECTAB PO SCH (08:20)
[2021-11-23] MEDS: APIXABAN 5 MG TABLET PO SCH ×2 (08:21→21:26)
[2021-11-23] MEDS: BRIMONIDINE TARTRATE-P 0.15% 5 ML BTL OPB SCH ×2 (08:21→21:24)
[2021-11-23] MEDS ORDERED: INSULIN GLARGINE SOLOSTAR 100 UNITS/ML 3 ML PEN SC SCH (09:00)
--- NOTE | 2021-11-23 09:32 | Nephrology Progress Note ---
Date of Service November 23, 2021 Assessment & Plan (1) ESRD (end stage renal disease): (2) Anemia: (3) Secondary hyperparathyroidism of renal origin: Plan: ESRD with history of advanced CKD secondary to diabetic nephropathy, admitted with nonhealing at left foot ulcer, status post BKA on 11/16/2021. Started on hemodialysis on 11/15/2021 via tunneled dialysis catheter for non recovery from EARLENE with underlying advanced CKD. Overall doing well, tolerating dialysis, otherwise asymptomatic. -- continue IHD MWF, tolerating HD, stable vitals. -- dose medications for GFR less than 10, left arm nephrology precaution for future vascular access for dialysis -- ROBERTH 96855 units x 1 dose today -- waiting on DC to [facility], outpt HD set up at [facility] after DC from rehab. Admission and Anticipated Discharge Date Admission Date: November 12, 2021 Subjective Quincy was seen this am while having HD. Has been tolerating dialysis, vital sign stable. Denies any specific symptom. No shortness of breath. Blood pressure acceptable. Electrolyte acceptable. Hemoglobin low but stable, on ROBERTH. Review of Systems Review of Systems: Detailed review of system was otherwise unremarkable except mentioned above. Physical Exam Constitutional: WD/WN, vitals as above no acute distress Eyes: + anicteric sclerae Neck: normal visual inspection Respiratory: no respiratory distress Auscultation: lungs clear to auscultation bilaterally Cardiovascular: Rate/Rhythm: regular rate and regular rhythm Heart Sounds: normal S1 and normal S2 Extremities: no edema Skin: no rashes Neurologic: no focal motor deficits and not confused Psychiatric: Orientation: alert and oriented x 3 Results & Data ([facility]) Vital Signs (Past 12 Hours) Vital Signs Temp Pulse Pulse Resp BP BP Pulse Ox 11/23/21 09:15 71 85/47 L 11/23/21 08:58 37 C 79 11/23/21 08:00 76 11/23/21 07:25 36.6 C 75 16 126/67 97 11/22/21 23:07 76 PG Care Time/CCT Total # of Minutes Spent Total Time Spent with Patient: Total time spent is greater than 50% in coordination of care (as documented) at patient's floor/unit and/or counseling patient: Coding Level of Care Code 14491 Subseq Hosp Care Lvl 2 Diagnoses ESRD (end stage renal disease) N18.6 Anemia N18.6; D63.1; Z99.2 Anemia type: due to chronic kidney disease Chronic kidney disease stage: on chronic dialysis Secondary hyperparathyroidism of renal origin N25.81 (1) Anemia Anemia type: due to chronic kidney disease Chronic kidney disease stage: on chronic dialysis Qualified Code(s): N18.6 - End stage renal disease; D63.1 - Anemia in chronic kidney disease; Z99.2 - Dependence on renal dialysis
[2021-11-23] MEDS ORDERED: EPOETIN ALFA 20,000 UNITS/ML VIAL IV SCH (10:00)
[2021-11-23] MEDS: ACETAMINOPHEN 325 MG TAB PO PRN (13:20)
--- NOTE | 2021-11-23 13:43 | Pharmacy Report ---
Pharmacy Glycemic Short Note 2 - Date of Service November 23, 2021 - Glycemic Short BSG Results (Last 24 hours): 11/22/21 11/22/21 11/23/21 16:15 20:36 05:10 Glucose 106 H POC Glucose 93 122 H 11/23/21 11/23/21 07:06 10:58 Glucose POC Glucose 114 H 128 H OUTPATIENT ANTIDIABETIC REGIMEN: * Lantus 50 units SC PM * HbA1c: 7.8% (11/13/21) ASSESSMENT: 11/23/21 * Patient received total of 19 units of insulin yesterday, of which 15 units were basal insulin * Fasting BSG 114 mg/dL - basal dose decreased yesterday due to poor PO intake, fasting remains unchanged. May have scale for Lantus with reduced dosing if BSGs on lower end tonight as PO documented for lunch today 11/19/21 * Patient received 36 units of insulin yesterday (15 units of basal and 21 units of bolus). * BSGs yesterday were [phone] and fasting this morning was 189 mg/dL. * Increase basal to 20 units daily (~25% increase) as 10 units BID for easier titration. * Continue Novolog as BSGs stable throughout the day. 11/18/21 * Patient received 13 units of insulin yesterday (10 units of basal and 3 units of bolus). * BSGs yesterday were [phone] mg/dL. Fasting this morning is 184 mg/dL -- significantly increased from yesterday. Basal rate had been decreased yesterday due to prolonged poor PO intake. * Increase basal rate to 15 units daily (5 units in morning and 10 units at night for easier titration). * Continue Novolog. 11/16: * Patient received total 46 units of insulin yesterday; 25 units of basal and 21 units bolus * BSGs yesterday were [phone] mg/dl. Fasting BSG today was 149 mg/dl. * Novolog parameters tightened further this AM. 11/15: * Patient received total of 29 units of insulin yesterday; 15 units basal and 14 units bolus. * BSGs yesterday were [phone]. Fasting BSG today was 178 mg/dl. Basal insulin dose scale increased today at HS. * Novolog CF and CR also tightened this AM. 11/13 * BSGs have been very tightly controlled with no insulin so far this admission, ranging 71-94 mg/dL * Patient is now accepting of HD if needed, per nephrology notes. Will follow. * First documented meal at lunchtime (40 g of carbs), will initiate Lantus scale this evening to provide basal if needed now that patient is eating * Continues on daptomycin/cefepime for treatment of diabetic foot infection/osteomyelitis of left foot * Orthopedics/vascular surgery consulted, patient likely to require sign ificant debridement 11/12 * 71 yo admitted secondary to osteomyelitis. Pharmacy has been consulted to assist with inpatient glycemic management. * Ordered a type 2 diabetic diet. Currently on Daptomycin and Cefepime. SCr at 7.18 mg/dL (patient is ESRD but refuses HD). * Did take 50 units of Lantus evening prior to admission. * Will hold Lantus for now given BSGs. * Start Novolog only. Target BSG of 110-140 mg/dL to help with infection and promote wound healing. PLAN FOR INPATIENT GLYCEMIC CONTROL: * Basal insulin * Lantus 5-7 units bid * Bolus insulin * NovoLog per scale ACHS or Q6hrs while NPO * Goal Range: Low 110 mg/dL - High 140 mg/dL * Correction Factor: 18 mg/dL/unit * Nutritional / Prandial insulin per carb ratio of 1 unit per 12 grams CHO c onsumed
--- NOTE | 2021-11-23 13:48 | Cardiology Progress Note ---
Date of Service November 23, 2021 Assessment & Plan (1) Atrial fibrillation with rapid ventricular response: (2) Hypotension: (3) Dyspnea on exertion: (4) Anemia: (5) Dyslipidemia: (6) Anticoagulant long-term use: Plan: ASSESSMENT/PLAN: 1. AFib with RVR:He remains in atrial fibrillation, the rate however is adequately controlled on his current medical regimen. We should consider cardioversion in the future, but as long as he is asymptomatic I would continue amiodarone for around a month before I did that, possibly longer. Since he converted to atrial fibrillation while hospitalized this admission we know when it started and if he converts spontaneously on amiodarone that should be safe as he has been anticoagulated. I started him on oral amiodarone 400 mg BID, but we should decrease that to 200mg BID at discharge. With this change to oral medications the level may drop and he may transiently have an increase in heart rate. His liver function tests were acceptable (AST slightly elevated). 2. Hypotension: BP is low at times, he is on metoprolol 100 mg daily and HR is well controlled. We could decrease beta blockade somewhat, but only if necessary. 3. Dyspnea on exertion:He is not short of breath however he is not very active either. We can assess this when he moves around a little bit more to see whether he has symptomatic atrial fibrillation. 4. Anemia: As per primary hospitalist service. 5. Dyslipidemia: Continue statin therapy. 6. Anticoagulation: Doing well on Eliquis. Cardiology will continue to follow. Admission and Anticipated Discharge Date Admission Date: November 12, 2021 Subjective He is feeling fairly well, no CV complaints. He is awaiting transfer to [facility]. Tolerating Amiodarone and Eliquis well. Physical Exam Physical Exam: Constitutional: Alert, cooperative and in no distress. HEENT: Unremarkable Neck: No jugular venous distention, carotid pulses are irregular but otherwise normal and equal bilaterally without bruits. Pulmonary: Clear to auscultation bilaterally. Cardiac: Irregular rhythm with a soft holosystolic murmur at the apex, no gallop or rub. Abdomen: Soft, nontender with normal bowel sounds. Extremities: No edema. Neurologic: No focal findings. Gait was not tested. Skin: No rash, ecchymoses or petechiae. Results & Data ([facility]) Vital Signs (Past 12 Hours) Vital Signs Temp Pulse Pulse Resp BP BP Pulse Ox 11/23/21 13:07 37 C 73 101/64 11/23/21 12:45 73 86/50 L 11/23/21 12:15 81 87/55 L 11/23/21 11:45 73 88/59 L 11/23/21 11:15 79 100/61 11/23/21 10:45 80 94/54 L 11/23/21 10:15 80 87/53 L 11/23/21 09:45 68 89/48 L 11/23/21 09:15 71 85/47 L 11/23/21 08:58 37 C 79 11/23/21 08:00 76 11/23/21 07:25 36.6 C 75 16 126/67 97 Laboratory Results Coagulation 11/23/21 Range/Units 05:10 APTT 38.8 H (21.0-31.0) Seconds CBC 11/23/21 Range/Units 05:10 WBC 15.97 H (4.8-10.8) K/uL RBC 2.91 L (4.7-6.1) M/uL Hgb 8.2 L (14.0-18.0) g/dL Hct 26.4 L (42-52) % Plt Count 183 (130-400) K/uL Comprehensive Metabolic Panel 11/23/21 Range/Units 05:10 Sodium 135 L (136-145) mmol/L Potassium 3.9 (3.5-5.1) mmol/L Chloride 97 L (98-107) mmol/L Carbon Dioxide 26 (21-32) mmol/L BUN 42 H (6-23) mg/dl Creatinine 5.98 H* (0.6-1.4) mg/dl Glucose 106 H (70-99(Fasting)) mg/dl Calcium 7.8 L (8.5-10.1) mg/dl Albumin 2.6 L (3.4-5.0) gm/dl Intake and Output 11/22/21 11/23/21 11/23/21 22:59 06:59 14:59 Intake Total 769.700 / 769.700 Output Total / 2 1 / 2 Balance 768.700 / 767.700 -1 / 767.700 - Intake: IV 459.700 / 459.700 Heparin Sodium/Dextrose 25,000 459.700 / 459.700 units In 500 ml @ 1,550 UNITS/ HR 31 mls/hr IV .[id number] BERTHA Rx# :[id number] Oral 310 / 310 Output: # Bowel Movements / 2 Other: Hemodialysis Ultrafiltration 1,000 Amount Weight 126 kg 125 kg Weight Measurement Method Built in Bedscale Built in Bedscale Patient Weight 11/24/21 06:59 Weight 125 kg PG Care Time/CCT Total # of Minutes Spent Total Time Spent with Patient: Total time spent is greater than 50% in coordination of care (as documented) at patient's floor/unit and/or counseling patient: Coding Level of Care Code 91493 Subseq Hosp Care Lvl 2 Diagnoses Atrial fibrillation with rapid ventricular response I48.91 Hypotension I95.89 Hypotension type: other hypotension type Dyspnea on exertion R06.00 Anemia N18.6; D63.1; Z99.2 Anemia type: due to chronic kidney disease Chronic kidney disease stage: on chronic dialysis Dyslipidemia E78.5 Anticoagulant long-term use Z79.01 (1) Hypotension Hypotension type: other hypotension type Qualified Code(s): I95.89 - Other hypotension (2) Anemia Anemia type: due to chronic kidney disease Chronic kidney disease stage: on chronic dialysis Qualified Code(s): N18.6 - End stage renal disease; D63.1 - Anemia in chronic kidney disease; Z99.2 - Dependence on renal dialysis
--- NOTE | 2021-11-23 15:03 | Hospitalist Progress Note ---
Date of Service November 23, 2021 Assessment & Plan (1) Osteomyelitis: Plan: 71 yo M w/ PMH of CKD stage IV, uncontrolled diabetes mellitus with peripheral neuropathy, hypertension, SUKHWINDER, and HLD presented 11/12 to our ED at referral of PCP for evaluation of SOB. Patient main concern was shortness of breath which was present for 5 days prior to admission however he was not aware of his left foot infection complicated with necrotic tissue. Pt does have peripheral neurop athy and states no sensation below his knees. 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 - Patient has remained afebrile, hemodynamically stable since admission. on admission, exam with necrotic tissue involving the left fourth and fifth toe and plantar surface of the left foot. - LLE Doppler negative for DVT - LLE arterial duplex positive for hemodynamically significant stenosis in the distal anterior tibial artery and dorsalis pedis artery. - MRI foot and ankle 11/13 shows soft tissues ulcer of lateral forefoot with cellulitis with OM of fifth metatarsal head and phalanges with soft tissue gas of forefoot ?secondary to direct extension from soft tissue ulcer vs necrotizing fascitis; tenosynovitis of extensor digitorum - s/p left BKA 11/16 by ortho-OR culture from 11/16 with Citrobacter. Ortho recommending 2 weeks of IV antibiotics. Discussed with ID Dr. Jansen 11/19. Okay to discontinue vanc and continue cefepime only (1gm IV daily) Cipro is not a good option given his ESRD and Afib being on amio. Prior blood clx with diphtheroids- ID recommended repeating blood culture- Blood culture 11/20 negative to date (2) Atrial fibrillation with RVR, new onset - since 11/15/21, still in rate controlled Afib, asymptomatic. TTE reviewed, no new change. Seen by cardio-transitioned to PO amiodarone. Heparin drip held due to bleeding at stump and permacath site. Bleeding resolved, H/H remains stable. Cleared by Vascular surgery and ortho to resume heparin drip--resumed 11/20. -no evidence of recurrent bleed. H/H remains stable. started Eliquis 5mg BID (3) EARLENE on CKD4, now ESRD - Permacath placed 11/15, had 1st HD 11/15, with subsequent HD 11/17 and 11/19 per nephro - Losartan and furosemide on hold. Hold nephrotoxics, ABx dosing per pharmacy based on renal function - abelardo need OP dialysis set up (4) Hypoxia: -CXR and chest clear, stable on 2 L of NC, wean down as tolerated, continue incentive spirometer. S/p 2 U of PRBC transfusion. Anemia and deconditioning likely contributing. Avoid aggressive IVF given his ESRD. (5) Anemia of CKD: -Hgb 7.5 on presentation (baseline ~ 10.0) and s/p 2 U of PRBC, now Hb >8. Check intermittently, transfuse as needed. Aranesp therapy per nephro. Watch for bleeding while on anticoagulation (6) Diabetes mellitus, type 2: -Hgb A1c 7.8 10/2021; diabetic management per pharmacy (7) Hypothyroidism: -Continue levothyroxine (8) Pulmonary arterial hypertension: - Appears euvolemic, hold furosemide (9) Hypertension- - BP lower now that he is on dialysis. Home amlodipine discontinued. Still on Toprol and clonidine. Consider weaning off Clonidine 10) Peripheral artery disease LLE- LLE arterial duplex with hemodynamically significant stenosis of distal ant tibial artery and dorsalis pedis artery; Seen by vascular surgery- no intervention needed New left wrist fluid collection -May be related to lab draw on that side (evidence of venous puncture on his hand/wrist). will elevate wrist, apply ice Q shift. -Monitor for resolution, if worsens may need aspiration DVT prophylaxis: Eliquis Dispo: Patient is stable for SNF placement. Will need ultrasound guided IV prior to discharge ([facility]) Admission and Anticipated Discharge Date Admission Date: November 12, 2021 Subjective Per nursing, new left wrist swelling (patient didn't even notice), denies pain, fever/chills Physical Exam Physical Exam: Appears chronically ill, no acute distress, currently getting dialysis Respiratory: breathing comfortably, no wheezing/rhonchi/rales Cardiovascular: regular rate and rhythm, no murmurs/rubs/gallops Musculoskeletal: left BKA stump is dressed--dressing is clean/dry/intact left wrist with a 3 cm fluid filled collection which is erythematous but not hot and non tender Skin: chest wall permacath is clean/dry/non bleeding Results & Data Results & Data ([facility]) Vital Signs (Past 12 Hours) Vital Signs Temp Pulse Pulse Resp BP BP Pulse Ox 11/23/21 13:07 37 C 73 101/64 11/23/21 12:45 73 86/50 L 11/23/21 12:15 81 87/55 L 11/23/21 11:45 73 88/59 L 11/23/21 11:15 79 100/61 11/23/21 10:45 80 94/54 L 11/23/21 10:15 80 87/53 L 11/23/21 09:45 68 89/48 L 11/23/21 09:15 71 85/47 L 11/23/21 08:58 37 C 79 11/23/21 08:00 76 11/23/21 07:25 36.6 C 75 16 126/67 97 Laboratory Results Short CBC 11/23/21 Range/Units 05:10 WBC 15.97 H (4.8-10.8) K/uL Hgb 8.2 L (14.0-18.0) g/dL Hct 26.4 L (42-52) % Plt Count 183 (130-400) K/uL BMP 11/23/21 05:10 Sodium 135 L Potassium 3.9 Chloride 97 L Carbon Dioxide 26 BUN 42 H Creatinine 5.98 H* Glucose 106 H Calcium 7.8 L Liver Function 11/23/21 Range/Units 05:10 Albumin 2.6 L (3.4-5.0) gm/dl Medications Administered Current Inpatient Medications Acetaminophen (Acetaminophen 325 Mg Tab) 650 mg PO Q4H PRN PRN Reason: Pain or Fever Stop: 12/12/21 14:38 Last Admin: 11/23/21 13:20 Dose: 650 mg Documented by: Allopurinol (Allopurinol 100 Mg Tab) 50 mg PO DAILY [facility] Stop: 12/13/21 08:59 Last Admin: 11/23/21 08:19 Dose: 50 mg Documented by: Amiodarone HCl (Amiodarone 200 Mg Tab) 400 mg PO BIDM [facility] Stop: 12/20/21 10:29 Last Admin: 11/23/21 08:20 Dose: 400 mg Documented by: Amlodipine Besylate (Amlodipine Besylate 5 Mg Tab) 5 mg PO DAILY [facility] Stop: 12/13/21 08:59 Last Admin: 11/15/21 10:17 Dose: 5 mg Documented by: Apixaban (Apixaban 5 Mg Tablet) 5 mg PO BID [facility] Stop: 12/22/21 20:59 Last Admin: 11/23/21 08:21 Dose: 5 mg Documented by: Aspirin (Aspirin 81 Mg Ectab) 81 mg PO DAILY [facility] Stop: 12/13/21 08:59 Last Admin: 11/23/21 08:20 Dose: 81 mg Documented by: Atorvastatin Calcium (Atorvastatin 40 Mg Tab) 40 mg PO DAILY [facility] Stop: 12/13/21 08:59 Last Admin: 11/23/21 08:19 Dose: 40 mg Documented by: Bisacodyl (Bisacodyl 10 Mg Supp) 10 mg AK DAILY PRN PRN Reason: Constipation Stop: 12/16/21 19:47 Brimonidine Tartrate (Brimonidine Tartrate-P 0.15% 5 Ml Btl) 1 drops OPB BID [facility] Stop: 12/12/21 20:59 Last Admin: 11/23/21 08:21 Dose: 1 drops Documented by: Calcitriol (Calcitriol 0.25 Mcg Capsule) 0.5 mcg PO BID [facility] Stop: 12/12/21 20:59 Last Admin: 11/23/21 08:19 Dose: 0.5 mcg Documented by: Clonidine HCl (Clonidine Hcl 0.1 Mg Tab) 0.1 mg PO BID [facility] Stop: 12/12/21 20:59 Last Admin: 11/23/21 08:20 Dose: 0.1 mg Documented by: Cyanocobalamin (Cyanocobalamin (B-12) 100 Mcg Tablet) 100 mcg PO QAM [facility] Stop: 11/27/21 09:01 Last Admin: 11/23/21 08:20 Dose: 100 mcg Documented by: Dextrose (Dextrose 50% 50 Ml Syringe) 25 - 50 ml IV UD PRN; Protocol PRN Reason: Hypoglycemia Protocol Stop: 12/12/21 17:14 Diphenhydramine HCl (Diphenhydramine Capsule 25 Mg Cap) 25 mg PO Q8H PRN PRN Reason: Itching Stop: 12/16/21 19:47 Docusate Sodium (Docusate Sodium 100 Mg Cap) 100 mg PO BID [facility] Stop: 12/16/21 20:59 Last Admin: 11/23/21 08:20 Dose: 100 mg Documented by: Epoetin Jaret (Epoetin Jaret 20,000 Units/Ml Vial) 20,000 units IV TODAY@1000 [facility] Stop: 11/23/21 23:59 Last Admin: 11/23/21 13:35 Dose: Not Given Documented by: Folic Acid (Folic Acid 1 Mg Tab) 1 mg PO QAM [facility] Stop: 12/12/21 09:01 Last Admin: 11/23/21 08:19 Dose: 1 mg Documented by: Glucagon (Glucagon For Inj 1 Mg Vial) 1 mg IM UD PRN; Protocol PRN Reason: Hypoglycemia Protocol Stop: 12/12/21 17:14 Glucose (Glucose 40% Gel 15 Gm Tube) 15 - 30 gm PO UD PRN; Protocol PRN Reason: Hypoglycemia Protocol Stop: 12/12/21 17:14 Glucose (Glucose 10 Tabs/Tube) 4 - 8 tabs PO UD PRN; Protocol PRN Reason: Hypoglycemia Protocol Stop: 12/12/21 17:14 Hydromorphone HCl (Hydromorphone Inj 0.5 Mg/0.5 Ml Syr) 0.5 mg IV Q4H PRN PRN Reason: Pain or Pre PT Stop: 11/30/21 19:47 Cefepime HCl 1,000 mg/ Syringe 11.3 mls @ 5.5 mls/min IV DAILY@1600 [facility]ER[facility]; Protocol Stop: 01/02/22 15:59 Last Admin: 11/22/21 17:12 Dose: 5.5 mls/min Documented by: Insulin Aspart (Insulin Aspart Per Unit) 0 units SC ACHS [facility]; Protocol Stop: 12/12/21 17:29 Last Admin: 11/23/21 13:33 Dose: Not Given Documented by: Insulin Glargine (Insulin Glargine Solostar 100 Units/Ml 3 Ml Pen) 0 units SC BID [facility]; Protocol Stop: 12/23/21 20:59 Latanoprost (Latanoprost 0.005% Op Soln 2.5 Ml Btl) 1 drops OP HS [facility] Stop: 12/12/21 20:59 Last Admin: 11/22/21 21:02 Dose: 1 drops Documented by: Levothyroxine Sodium (Levothyroxine Sodium 50 Mcg Tablet) [facility] Stop: 12/13/21 06:29 Last Admin: 11/23/21 06:18 Dose: 50 mcg Documented by: Magnesium Hydroxide (Magnesium Hydroxide Susp 30 Ml Udc) 30 ml PO Q6H PRN PRN Reason: Constipation Stop: 12/16/21 19:47 Metoclopramide HCl (Metoclopramide Hcl Inj 5 Mg/Ml 2 Ml Vial) 10 mg IV Q6H PRN PRN Reason: Nausea And Vomiting Stop: 12/16/21 19:47 Last Admin: 11/17/21 09:46 Dose: 10 mg Documented by: Metoprolol Succinate (Metoprolol Succ 50mg Ext Rel Tab) 100 mg PO [facility] Stop: 12/13/21 08:59 Last Admin: 11/23/21 08:20 Dose: 100 mg Documented by: Metoprolol Tartrate (Metoprolol Tartrate 1 Mg/Ml Vial) 5 mg IV Q4 PRN; Protocol PRN Reason: for sustained HR>120 Stop: 12/15/21 11:59 Miscellaneous (Carbohydrates For Hypoglycemia ) 15 - 30 gm PO UD PRN PRN Reason: Hypoglycemia Treatment Stop: 12/12/21 17:14 Miscellaneous Information (Pharmacy Glycemic Mgmt Consult) 1 ea N/A UD PRN PRN Reason: Consult Stop: 12/12/21 16:54 Multivitamins (Multivitamin Tab) 1 tab PO [facility] Stop: 12/17/21 08:59 Last Admin: 11/23/21 08:20 Dose: 1 tab Documented by: Naloxone HCl (Naloxone Hcl 0.4 Mg/1 Ml Vial/Carp) 0.1 mg IV Q5M PRN PRN Reason: Oversedation/Resp Depression Stop: 12/16/21 19:47 Ondansetron HCl (Ondansetron Inj 2 Mg/Ml 2 Ml Vial) 4 mg IV Q6H PRN PRN Reason: Nausea And Vomiting Stop: 12/16/21 19:47 Last Admin: 11/18/21 11:40 Dose: 4 mg Documented by: Oxycodone/Acetaminophen (Oxycodone/Acetaminophen 5mg/325mg Tab) 1 - 2 tab PO Q4H PRN PRN Reason: Moderate Pain Stop: 11/28/21 12:41 Last Admin: 11/18/21 11:48 Dose: 2 tab Documented by: Tracy (Senna 8.6 Mg Tab) 17.2 mg PO HS [facility] Stop: 12/16/21 20:59 Last Admin: 11/22/21 21:01 Dose: 17.2 mg Documented by: (1) Osteomyelitis Laterality: unspecified laterality Osteomyelitis location: foot Osteomyelitis type: unspecified type Qualified Code(s): M86.9 - Osteomyelitis, unspecified
[2021-11-23] MEDS: CEFEPIME 1,000 MG in SYRINGE 0 ML IV SCH (15:51)
[2021-11-23] MEDS: HYDROmorphone INJ 0.5 MG/0.5 ML SYR IV PRN ×2 (15:51→21:38)
[2021-11-23] MEDS: INSULIN GLARGINE SOLOSTAR 100 UNITS/ML 3 ML PEN SC SCH (21:24)
[2021-11-23] MEDS: LATANOPROST 0.005% OP SOLN 2.5 ML BTL OP SCH (21:24)
[2021-11-23] MEDS: SENNA 8.6 MG TAB PO SCH (21:28)
[2021-11-24] MEDS: ACETAMINOPHEN 325 MG TAB PO PRN ×2 (00:57→23:41)
[2021-11-24] MEDS: HYDROmorphone INJ 0.5 MG/0.5 ML SYR IV PRN ×4 (04:30→20:02)
[2021-11-24] MEDS: LEVOTHYROXINE SODIUM 50 MCG TABLET PO SCH (06:08)
[2021-11-24 08:04] LABS: Albumin Level 2.6 gm/dl (3.4-5.0); BUN Creatinine Ratio 6.4 (10-20); Calcium 8.1 mg/dl (8.5-10.1); Creatinine Clr Calc Pharmacy 18.7 ml/min; Est GFR (African American) 13.2 ml/min; Est GFR (Non-African American) 11.4 ml/min; Phosphorus 5.7 mg/dl (2.5-4.9)
[2021-11-24] MEDS: INSULIN ASPART PER UNIT SC SCH ×4 (08:45→21:59)
--- NOTE | 2021-11-24 09:39 | Hospitalist Progress Note ---
Date of Service November 24, 2021 Assessment & Plan (1) Osteomyelitis: Plan: 71 yo M w/ PMH of CKD stage IV, uncontrolled diabetes mellitus with peripheral neuropathy, hypertension, SUKHWINDER, and HLD presented 11/12 to our ED at referral of PCP for evaluation of SOB. Patient main concern was shortness of breath which was present for 5 days prior to admission however he was not aware of his left foot infection complicated with necrotic tissue. Pt does have peripheral neurop athy and states no sensation below his knees. 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 - Patient has remained afebrile, hemodynamically stable since admission. on admission, exam with necrotic tissue involving the left fourth and fifth toe and plantar surface of the left foot. - LLE Doppler negative for DVT - LLE arterial duplex positive for hemodynamically significant stenosis in the distal anterior tibial artery and dorsalis pedis artery. - MRI foot and ankle 11/13 shows soft tissues ulcer of lateral forefoot with cellulitis with OM of fifth metatarsal head and phalanges with soft tissue gas of forefoot ?secondary to direct extension from soft tissue ulcer vs necrotizing fascitis; tenosynovitis of extensor digitorum - s/p left BKA 11/16 by ortho-OR culture from 11/16 with Citrobacter. Discussed with ID Dr. Jansen 11/19. Okay to discontinue vanc and continue cefepime only (1gm IV daily) Cipro is not a good option given his ESRD and Afib being on amio. Prior blood clx with diphtheroids- Blood culture 11/20 negative to date Plan for 2 weeks antibiotics (2) Atrial fibrillation with RVR, new onset - since 11/15/21, still in rate controlled Afib, asymptomatic. TTE reviewed, no new change. Seen by cardio-transitioned to PO amiodarone. Heparin drip held due to bleeding at stump and permacath site. Bleeding resolved, H/H remains stable. Cleared by Vascular surgery and ortho to resume heparin drip--resumed 11/20. -no evidence of recurrent bleed. H/H remains stable. started Eliquis 5mg BID (3) EARLENE on CKD4, now ESRD - Permacath placed 11/15, had 1st HD 11/15, with subsequent HD 11/17 and 11/19 per nephro - Losartan and furosemide on hold. Hold nephrotoxics, ABx dosing per pharmacy based on renal function - abelardo need OP dialysis set up (4) Hypoxia: -CXR and chest clear, stable on 2 L of NC, wean down as tolerated, continue incentive spirometer. S/p 2 U of PRBC transfusion. Anemia and deconditioning likely contributing. Avoid aggressive IVF given his ESRD. (5) Anemia of CKD: -Hgb 7.5 on presentation (baseline ~ 10.0) and s/p 2 U of PRBC, now Hb >8. Check intermittently, transfuse as needed. Aranesp therapy per nephro. Watch for bleeding while on anticoagulation (6) Diabetes mellitus, type 2: -Hgb A1c 7.8 10/2021; diabetic management per pharmacy (7) Hypothyroidism: -Continue levothyroxine (8) Pulmonary arterial hypertension: - Appears euvolemic, hold furosemide (9) Hypertension- - BP lower now that he is on dialysis. Home amlodipine discontinued. Still on Toprol and clonidine. Consider weaning off Clonidine 10) Peripheral artery disease LLE- LLE arterial duplex with hemodynamically significant stenosis of distal ant tibial artery and dorsalis pedis artery; Seen by vascular surgery- no intervention needed New left wrist fluid collection -May be related to lab draw on that side (evidence of venous puncture on his hand/wrist). will elevate wrist, apply ice Q shift. -resolving -will place left arm on limb alert (to save for future dialysis site) DVT prophylaxis: Eliquis Dispo: Patient is stable for SNF placement. Will need ultrasound guided IV prior to discharge ([facility]) Admission and Anticipated Discharge Date Admission Date: November 12, 2021 Subjective reports left stump pain left wrist swelling improved No fever/chills Physical Exam Physical Exam: Appears dishevelled, no acute distress, obese Respiratory: breathing comfortably on room air, no wheezing/rhonchi/rales Cardiovascular: regular rate and rhythm, no murmurs/rubs/gallops Gastrointestinal (Abdomen): soft, non tender Musculoskeletal: left BKA stump dressing clean/dry/intact left wrist swelling is improved, less red Results & Data Results & Data ([facility]) Vital Signs (Past 12 Hours) Vital Signs Temp Pulse Pulse Pulse Resp BP Pulse Ox 11/24/21 07:17 36.7 C 71 18 107/60 97 11/24/21 04:25 36.6 C 76 18 130/76 98 11/23/21 23:52 36.8 C 77 18 122/75 96 11/23/21 22:20 75 Laboratory Results BMP 11/24/21 06:35 Sodium 138 Potassium 4.0 Chloride 99 Carbon Dioxide 29 BUN 31 H Creatinine 4.83 H* D Glucose 110 H Calcium 8.1 L Liver Function 11/24/21 Range/Units 06:35 Albumin 2.6 L (3.4-5.0) gm/dl Medications Administered Current Inpatient Medications Acetaminophen (Acetaminophen 325 Mg Tab) 650 mg PO Q4H PRN PRN Reason: Pain or Fever Stop: 12/12/21 14:38 Last Admin: 11/24/21 00:57 Dose: 650 mg Documented by: Allopurinol (Allopurinol 100 Mg Tab) 50 mg PO DAILY BERTHA Stop: 12/13/21 08:59 Last Admin: 11/23/21 08:19 Dose: 50 mg Documented by: Amiodarone HCl (Amiodarone 200 Mg Tab) 400 mg PO BIDM [facility] Stop: 12/20/21 10:29 Last Admin: 11/23/21 17:28 Dose: 400 mg Documented by: Amlodipine Besylate (Amlodipine Besylate 5 Mg Tab) 5 mg PO DAILY BERTHA Stop: 12/13/21 08:59 Last Admin: 11/15/21 10:17 Dose: 5 mg Documented by: Apixaban (Apixaban 5 Mg Tablet) 5 mg PO BID BERTHA Stop: 12/22/21 20:59 Last Admin: 11/23/21 21:26 Dose: 5 mg Documented by: Aspirin (Aspirin 81 Mg Ectab) 81 mg PO DAILY BERTHA Stop: 12/13/21 08:59 Last Admin: 11/23/21 08:20 Dose: 81 mg Documented by: Atorvastatin Calcium (Atorvastatin 40 Mg Tab) 40 mg PO DAILY BERTHA Stop: 12/13/21 08:59 Last Admin: 11/23/21 08:19 Dose: 40 mg Documented by: Bisacodyl (Bisacodyl 10 Mg Supp) 10 mg ME DAILY PRN PRN Reason: Constipation Stop: 12/16/21 19:47 Brimonidine Tartrate (Brimonidine Tartrate-P 0.15% 5 Ml Btl) 1 drops OPB BID [facility] Stop: 12/12/21 20:59 Last Admin: 11/23/21 21:24 Dose: 1 drops Documented by: Calcitriol (Calcitriol 0.25 Mcg Capsule) 0.5 mcg PO BID BERTHA Stop: 12/12/21 20:59 Last Admin: 11/23/21 21:26 Dose: 0.5 mcg Documented by: Clonidine HCl (Clonidine Hcl 0.1 Mg Tab) 0.1 mg PO BID [facility] Stop: 12/12/21 20:59 Last Admin: 11/23/21 21:27 Dose: 0.1 mg Documented by: Cyanocobalamin (Cyanocobalamin (B-12) 100 Mcg Tablet) 100 mcg PO QAM [facility] Stop: 11/27/21 09:01 Last Admin: 11/23/21 08:20 Dose: 100 mcg Documented by: Dextrose (Dextrose 50% 50 Ml Syringe) 25 - 50 ml IV UD PRN; Protocol PRN Reason: Hypoglycemia Protocol Stop: 12/12/21 17:14 Diphenhydramine HCl (Diphenhydramine Capsule 25 Mg Cap) 25 mg PO Q8H PRN PRN Reason: Itching Stop: 12/16/21 19:47 Docusate Sodium (Docusate Sodium 100 Mg Cap) 100 mg PO BID [facility] Stop: 12/16/21 20:59 Last Admin: 11/23/21 21:27 Dose: 100 mg Documented by: Folic Acid (Folic Acid 1 Mg Tab) 1 mg PO QAM [facility] Stop: 12/12/21 09:01 Last Admin: 11/23/21 08:19 Dose: 1 mg Documented by: Glucagon (Glucagon For Inj 1 Mg Vial) 1 mg IM UD PRN; Protocol PRN Reason: Hypoglycemia Protocol Stop: 12/12/21 17:14 Glucose (Glucose 40% Gel 15 Gm Tube) 15 - 30 gm PO UD PRN; Protocol PRN Reason: Hypoglycemia Protocol Stop: 12/12/21 17:14 Glucose (Glucose 10 Tabs/Tube) 4 - 8 tabs PO UD PRN; Protocol PRN Reason: Hypoglycemia Protocol Stop: 12/12/21 17:14 Hydromorphone HCl (Hydromorphone Inj 0.5 Mg/0.5 Ml Syr) 0.5 mg IV Q4H PRN PRN Reason: Pain or Pre PT Stop: 11/30/21 19:47 Last Admin: 11/24/21 04:30 Dose: 0.5 mg Documented by: Cefepime HCl 1,000 mg/ Syringe 11.3 mls @ 5.5 mls/min IV DAILY@1600 [facility]; Protocol Stop: 01/02/22 15:59 Last Admin: 11/23/21 15:51 Dose: 5.5 mls/min Documented by: Insulin Aspart (Insulin Aspart Per Unit) 0 units SC ACHS [facility]; Protocol Stop: 12/12/21 17:29 Last Admin: 11/24/21 08:45 Dose: 3 units Documented by: Insulin Glargine (Insulin Glargine Solostar 100 Units/Ml 3 Ml Pen) 0 units SC BID [facility] [place]; Protocol Stop: 12/23/21 20:59 Last Admin: 11/23/21 21:24 Dose: 5 units Documented by: Latanoprost (Latanoprost 0.005% Op Soln 2.5 Ml Btl) 1 drops OP HS [facility] [place] Stop: 12/12/21 20:59 Last Admin: 11/23/21 21:24 Dose: 1 drops Documented by: Levothyroxine Sodium (Levothyroxine Sodium 50 Mcg Tablet) [facility] Stop: 12/13/21 06:29 Last Admin: 11/24/21 06:08 Dose: 50 mcg Documented by: Magnesium Hydroxide (Magnesium Hydroxide Susp 30 Ml Udc) 30 ml PO Q6H PRN PRN Reason: Constipation Stop: 12/16/21 19:47 Metoclopramide HCl (Metoclopramide Hcl Inj 5 Mg/Ml 2 Ml Vial) 10 mg IV Q6H PRN PRN Reason: Nausea And Vomiting Stop: 12/16/21 19:47 Last Admin: 11/17/21 09:46 Dose: 10 mg Documented by: Metoprolol Succinate (Metoprolol Succ 50mg Ext Rel Tab) 100 mg PO QAM [facility] [place] Stop: 12/13/21 08:59 Last Admin: 11/23/21 08:20 Dose: 100 mg Documented by: Metoprolol Tartrate (Metoprolol Tartrate 1 Mg/Ml Vial) 5 mg IV Q4 PRN; Protocol PRN Reason: for sustained HR>120 Stop: 12/15/21 11:59 Miscellaneous (Carbohydrates For Hypoglycemia ) 15 - 30 gm PO UD PRN PRN Reason: Hypoglycemia Treatment Stop: 12/12/21 17:14 Miscellaneous Information (Pharmacy Glycemic Mgmt Consult) 1 ea N/A UD PRN PRN Reason: Consult Stop: 12/12/21 16:54 Multivitamins (Multivitamin Tab) 1 tab PO QAM [facility] Stop: 12/17/21 08:59 Last Admin: 11/23/21 08:20 Dose: 1 tab Documented by: Naloxone HCl (Naloxone Hcl 0.4 Mg/1 Ml Vial/Carp) 0.1 mg IV Q5M PRN PRN Reason: Oversedation/Resp Depression Stop: 12/16/21 19:47 Ondansetron HCl (Ondansetron Inj 2 Mg/Ml 2 Ml Vial) 4 mg IV Q6H PRN PRN Reason: Nausea And Vomiting Stop: 12/16/21 19:47 Last Admin: 11/18/21 11:40 Dose: 4 mg Documented by: Oxycodone/Acetaminophen (Oxycodone/Acetaminophen 5mg/325mg Tab) 1 - 2 tab PO Q4H PRN PRN Reason: Moderate Pain Stop: 11/28/21 12:41 Last Admin: 11/18/21 11:48 Dose: 2 tab Documented by: Sennosides (Senna 8.6 Mg Tab) 17.2 mg PO HS [facility] Stop: 12/16/21 20:59 Last Admin: 11/23/21 21:28 Dose: 17.2 mg Documented by: (1) Osteomyelitis Laterality: unspecified laterality Osteomyelitis location: foot Osteomyelitis type: unspecified type Qualified Code(s): M86.9 - Osteomyelitis, unspecified
[2021-11-24] MEDS: allopurinoL 100 MG TAB PO SCH (09:49)
[2021-11-24] MEDS: AMIODARONE 200 MG TAB PO SCH ×2 (09:49→16:32)
[2021-11-24] MEDS: APIXABAN 5 MG TABLET PO SCH ×2 (09:49→21:56)
[2021-11-24] MEDS: CYANOCOBALAMIN (B-12) 100 MCG TABLET PO SCH (09:50)
[2021-11-24] MEDS: ATORVASTATIN 40 MG TAB PO SCH (09:50)
[2021-11-24] MEDS: CALCITRIOL 0.25 MCG CAPSULE PO SCH ×2 (09:50→21:56)
[2021-11-24] MEDS: ASPIRIN 81 MG ECTAB PO SCH (09:50)
[2021-11-24] MEDS: cloNIDine HCL 0.1 MG TAB PO SCH ×2 (09:51→22:06)
[2021-11-24] MEDS: DOCUSATE SODIUM 100 MG CAP PO SCH ×2 (09:51→21:57)
[2021-11-24] MEDS: BRIMONIDINE TARTRATE-P 0.15% 5 ML BTL OPB SCH ×2 (09:51→21:58)
[2021-11-24] MEDS: FOLIC ACID 1 MG TAB PO SCH (09:52)
[2021-11-24] MEDS: METOPROLOL SUCC 50MG EXT REL TAB PO SCH (09:52)
[2021-11-24] MEDS: INSULIN GLARGINE SOLOSTAR 100 UNITS/ML 3 ML PEN SC SCH ×2 (09:52→21:57)
[2021-11-24] MEDS: MULTIVITAMIN TAB PO SCH (09:52)
--- NOTE | 2021-11-24 11:12 | Nephrology Progress Note ---
Date of Service November 24, 2021 Assessment & Plan (1) ESRD (end stage renal disease): Plan: Attributed to DKD. Started HD 11/15/21 via [facility]. Completed HD yesterday with adequate clearance. Electrolytes controlled. BP controlled. Volume status acceptable. Medications appropriately dosed for IHD. Renal diet. Repeat metabolic profile Friday. (2) Anemia: Plan: Epogen 00793 units provided yesterday. Oral FeSO4 added today for CANDELARIO. Repeat H/H Friday prior to HD. (3) Secondary hyperparathyroidism of renal origin: Plan: Remains on calcitriol 0.5 mg/dL BID. Admission and Anticipated Discharge Date Admission Date: November 12, 2021 Subjective No acute events overnight. Completed HD yesterday without complications. Adequate clearance. Tolerating HD well. No fevers. Review of Systems Review of Systems: All systems reviewed & are unremarkable except as noted in HPI & below Physical Exam Constitutional: well developed; no acute distress Eyes: + anicteric sclerae; no corneal abnormality ENMT: Mouth: no oral mucosal abnormality and oral mucous membranes not dry Neck: normal visual inspection and trachea midline Respiratory: normal respiratory effort Auscultation: lungs clear to auscultation bilaterally Cardiovascular: Rate/Rhythm: regular rate Heart Sounds: normal S1 and normal S2 Extremities: no edema Musculoskeletal: Extremities: no cyanosis and no clubbing L BKA with dressing CDI Skin: normal turgor; no lesions Neurologic: Motor/Sensory: no tremor and no asterixis Psychiatric: Orientation: alert and oriented x 3 Results & Data ([facility]) Vital Signs (Past 12 Hours) Vital Signs Temp Pulse Pulse Resp BP Pulse Ox 11/24/21 07:17 36.7 C 71 18 107/60 97 11/24/21 04:25 36.6 C 76 18 130/76 98 11/23/21 23:52 36.8 C 77 18 122/75 96 Laboratory Results Laboratory Results - last 24 hr 11/23/21 11/23/21 11/24/21 16:19 20:42 06:35 Sodium 138 Potassium 4.0 Chloride 99 Carbon Dioxide 29 Anion Gap 10 BUN 31 H Creatinine 4.83 H* D Est Cr Clr Drug Dosing 18.7 Est GFR ( Amer) 13.2 Est GFR (Non-Af Amer) 11.4 BUN/Creatinine Ratio 6.4 L Glucose 110 H POC Glucose 122 H 118 H Calcium 8.1 L Phosphorus 5.7 H Albumin 2.6 L 11/24/21 07:16 Sodium Potassium Chloride Carbon Dioxide Anion Gap BUN Creatinine Est Cr Clr Drug Dosing Est GFR ( Amer) Est GFR (Non-Af Amer) BUN/Creatinine Ratio Glucose POC Glucose 113 H Calcium Phosphorus Albumin PG Care Time/CCT Total # of Minutes Spent Total Time Spent with Patient: Total time spent is greater than 50% in coordination of care (as documented) at patient's floor/unit and/or counseling patient: Coding Level of Care Code 84533 Subseq Hosp Care Lvl 3 Diagnoses ESRD (end stage renal disease) N18.6 Anemia N18.6; D63.1; Z99.2 Anemia type: due to chronic kidney disease Chronic kidney disease stage: on chronic dialysis Secondary hyperparathyroidism of renal origin N25.81 (1) Anemia Anemia type: due to chronic kidney disease Chronic kidney disease stage: on chronic dialysis Qualified Code(s): N18.6 - End stage renal disease; D63.1 - Anemia in chronic kidney disease; Z99.2 - Dependence on renal dialysis
[2021-11-24] MEDS: FERROUS SULFATE 325 MG TAB PO SCH (16:32)
[2021-11-24] MEDS: CEFEPIME 1,000 MG in SYRINGE 0 ML IV SCH (16:32)
[2021-11-24] MEDS: SENNA 8.6 MG TAB PO SCH (21:57)
[2021-11-24] MEDS: LATANOPROST 0.005% OP SOLN 2.5 ML BTL OP SCH (21:58)
[2021-11-25] MEDS: HYDROmorphone INJ 1 MG/ML SYRINGE IV PRN ×2 (00:59→08:06)
[2021-11-25] MEDS: oxyCODONE/ACETAMINOPHEN 5mg/325mg TAB PO PRN ×3 (04:39→17:45)
[2021-11-25] MEDS: LEVOTHYROXINE SODIUM 50 MCG TABLET PO SCH (06:02)
[2021-11-25] MEDS: FOLIC ACID 1 MG TAB PO SCH (08:08)
[2021-11-25] MEDS: APIXABAN 5 MG TABLET PO SCH ×2 (08:08→20:19)
[2021-11-25] MEDS: CALCITRIOL 0.25 MCG CAPSULE PO SCH ×2 (08:08→20:19)
[2021-11-25] MEDS: AMIODARONE 200 MG TAB PO SCH ×2 (08:08→16:28)
[2021-11-25] MEDS: MULTIVITAMIN TAB PO SCH (08:08)
[2021-11-25] MEDS: CYANOCOBALAMIN (B-12) 100 MCG TABLET PO SCH (08:09)
[2021-11-25] MEDS: ATORVASTATIN 40 MG TAB PO SCH (08:09)
[2021-11-25] MEDS: ASPIRIN 81 MG ECTAB PO SCH (08:09)
[2021-11-25] MEDS: METOPROLOL SUCC 50MG EXT REL TAB PO SCH (08:09)
[2021-11-25] MEDS: FERROUS SULFATE 325 MG TAB PO SCH ×2 (08:10→16:28)
[2021-11-25] MEDS: allopurinoL 100 MG TAB PO SCH (08:10)
[2021-11-25] MEDS: BRIMONIDINE TARTRATE-P 0.15% 5 ML BTL OPB SCH ×2 (08:11→20:20)
[2021-11-25] MEDS: INSULIN ASPART PER UNIT SC SCH ×4 (08:19→21:29)
[2021-11-25] MEDS: INSULIN GLARGINE SOLOSTAR 100 UNITS/ML 3 ML PEN SC SCH ×2 (08:19→21:29)
[2021-11-25] MEDS: cloNIDine HCL 0.1 MG TAB PO SCH ×2 (08:42→20:24)
[2021-11-25] MEDS: DOCUSATE SODIUM 100 MG CAP PO SCH ×2 (08:42→20:20)
--- NOTE | 2021-11-25 10:30 | Cardiology Progress Note ---
Date of Service November 25, 2021 Assessment & Plan (1) Atrial fibrillation with rapid ventricular response: (2) Hypotension: (3) Dyspnea on exertion: (4) Anemia: (5) Dyslipidemia: (6) Anticoagulant long-term use: Plan: ASSESSMENT/PLAN: 1. AFib with RVR:He remains in atrial fibrillation, the rate however is adequately controlled on his current medical regimen. I think it would be reasonable to consider cardioversion at this time and he is agreeable. I start ed him on oral amiodarone 400 mg BID, but we should decrease that to 200mg BID at discharge. His liver function tests were acceptable (AST slightly elevated). 2. Hypotension: BP has been low at times, he is on metoprolol 100 mg daily and HR is well controlled. We could decrease beta blockade somewhat, however in atrial fibrillation he may have a rapid heart rate so would prefer not to do that. However once we get him back into sinus rhythm we could do that. 3. Dyspnea on exertion:He is not short of breath however he is not very active either. We can assess this when he moves around a little bit more. 4. Anemia: As per primary hospitalist service. 5. Dyslipidemia: Continue statin therapy. 6. Anticoagulation: Doing well on Eliquis. He was on heparin initially and in the perioperative period except for a brief hold following surgery to control bleeding, based on his PTT measurements this appears to be less than 1 day and therefore should be safe for cardioversion. I have tentatively scheduled him for cardioversion at 7:15 AM tomorrow, although that could potentially change based on scheduling conflicts. Admission and Anticipated Discharge Date Admission Date: November 12, 2021 Subjective He is feeling well today from the cardiovascular standpoint, he remains unaware of his cardiac rhythm but remains in atrial fibrillation. He is on heparin and has been other than a brief episode following his surgery when it was discontinued for what looks like less than a day. Physical Exam Physical Exam: Constitutional: Alert, cooperative and in no distress. HEENT: Unremarkable Neck: No jugular venous distention, carotid pulses are irregular but otherwise normal and equal bilaterally without bruits. Pulmonary: Clear to auscultation bilaterally. Cardiac: Irregular rhythm with a soft holosystolic murmur at the apex, no gallop or rub. Abdomen: Soft, nontender with normal bowel sounds. Extremities: No edema. BKA. Neurologic: No focal findings. Gait was not tested. Skin: No rash, ecchymoses or petechiae. Results & Data ([facility]) Vital Signs (Past 12 Hours) Vital Signs Temp Pulse Pulse Pulse Resp BP BP 11/25/21 07:13 36.7 C 70 19 117/62 11/25/21 04:37 71 124/67 11/25/21 03:29 36.7 C 62 18 115/56 L 11/25/21 00:56 69 121/71 11/24/21 23:00 36.7 C 68 19 119/68 Pulse Ox 11/25/21 07:13 96 11/25/21 04:37 11/25/21 03:29 98 11/25/21 00:56 11/24/21 23:00 97 Laboratory Results Intake and Output 11/24/21 11/25/21 11/25/21 22:59 06:59 14:59 Intake Total 300 / 990 150 / 990 Balance 300 / 989 150 / 989 Intake: Oral 300 / 990 150 / 990 Other: Weight 126 kg Diagnostic Findings Telemetry: Atrial fibrillation with a heart rate of 60 to 70 bpm. PG Care Time/CCT Total # of Minutes Spent Total Time Spent with Patient: Total time spent is greater than 50% in coordination of care (as documented) at patient's floor/unit and/or counseling patient: Coding Level of Care Code 38379 Subseq Hosp Care Lvl 3 Diagnoses Atrial fibrillation with rapid ventricular response I48.91 Hypotension I95.89 Hypotension type: other hypotension type Dyspnea on exertion R06.00 Anemia N18.6; D63.1; Z99.2 Anemia type: due to chronic kidney disease Chronic kidney disease stage: on chronic dialysis Dyslipidemia E78.5 Anticoagulant long-term use Z79.01 (1) Hypotension Hypotension type: other hypotension type Qualified Code(s): I95.89 - Other hypotension (2) Anemia Anemia type: due to chronic kidney disease Chronic kidney disease stage: on chronic dialysis Qualified Code(s): N18.6 - End stage renal disease; D63.1 - Anemia in chronic kidney disease; Z99.2 - Dependence on renal dialysis
--- NOTE | 2021-11-25 11:09 | Nephrology Progress Note ---
Date of Service November 25, 2021 Assessment & Plan (1) ESRD (end stage renal disease): Plan: Attributed to DKD. Started HD 11/15/21 via [facility]. BP controlled. Volume status acceptable. Medications appropriately dosed for IHD. Renal diet. Repeat metabolic profile tomorrow AM. HD planned for tomorrow. (2) Anemia: Plan: Epogen 02594 units provided 11/23/21. Oral FeSO4 BID for CANDELARIO. Repeat H/H tomorrow prior to HD. (3) Secondary hyperparathyroidism of renal origin: Plan: Remains on calcitriol 0.5 mg/dL BID. Admission and Anticipated Discharge Date Admission Date: November 12, 2021 Subjective No acute events overnight. [place] feels reasonably well today. He reports some weakness and states that he is looking forward on working more with PT to regain some strength. He denies chest pain, palpitations, or shortness of breath. Appetite is good. Review of Systems Constitutional: no problem reported Eyes: no problem reported Ear, Nose, Mouth, Throat: no problem reported Respiratory: no problem reported Cardiovascular: no problem reported Gastrointestinal: no problem reported Musculoskeletal: no problem reported Integumentary: no problem reported Neurologic: no problem reported Psychiatric: no problem reported Endocrine: no problem reported Hematologic / Lymphatic: no problem reported Physical Exam Constitutional: well developed; no acute distress Eyes: + anicteric sclerae; no corneal abnormality ENMT: Mouth: no oral mucosal abnormality and oral mucous membranes not dry Neck: normal visual inspection and trachea midline Respiratory: normal respiratory effort Auscultation: lungs clear to auscultation bilaterally Cardiovascular: Rate/Rhythm: regular rate Heart Sounds: normal S1 and normal S2 Extremities: no edema Musculoskeletal: Extremities: no cyanosis and no clubbing Skin: normal turgor; no lesions Neurologic: Motor/Sensory: no tremor and no asterixis Psychiatric: Orientation: alert and oriented x 3 Results & Data ([facility]) Vital Signs (Past 12 Hours) Vital Signs Temp Pulse Pulse Pulse Resp BP BP 11/25/21 11:02 36.7 C 79 19 112/63 11/25/21 07:13 36.7 C 70 19 117/62 11/25/21 04:37 71 124/67 11/25/21 03:29 36.7 C 62 18 115/56 L 11/25/21 00:56 69 121/71 Pulse Ox 11/25/21 11:02 97 11/25/21 07:13 96 11/25/21 04:37 11/25/21 03:29 98 11/25/21 00:56 Laboratory Results Laboratory Results - last 24 hr 11/24/21 11/24/21 11/24/21 11:21 16:16 20:01 POC Glucose 122 H 126 H 171 H Stool Occult Bld Scrn 11/24/21 11/25/21 21:43 07:16 POC Glucose 129 H Stool Occult Bld Scrn Negative PG Care Time/CCT Total # of Minutes Spent Total Time Spent with Patient: Total time spent is greater than 50% in coordination of care (as documented) at patient's floor/unit and/or counseling patient: Coding Level of Care Code 87156 Subseq Hosp Care Lvl 3 Diagnoses ESRD (end stage renal disease) N18.6 Anemia N18.6; D63.1; Z99.2 Anemia type: due to chronic kidney disease Chronic kidney disease stage: on chronic dialysis Secondary hyperparathyroidism of renal origin N25.81 (1) Anemia Anemia type: due to chronic kidney disease Chronic kidney disease stage: on chronic dialysis Qualified Code(s): N18.6 - End stage renal disease; D63.1 - Anemia in chronic kidney disease; Z99.2 - Dependence on renal dialysis
[2021-11-25] MEDS ORDERED: GABAPENTIN 100 MG CAP PO SCH (11:15)
--- NOTE | 2021-11-25 11:20 | Hospitalist Progress Note ---
Date of Service November 25, 2021 Assessment & Plan (1) Osteomyelitis: Plan: 71 yo M w/ PMH of CKD stage IV, uncontrolled diabetes mellitus with peripheral neuropathy, hypertension, SUKHWINDER, and HLD presented 11/12 to our ED at referral of PCP for evaluation of SOB. Patient main concern was shortness of breath which was present for 5 days prior to admission however he was not aware of his left foot infection complicated with necrotic tissue. Pt does have peripheral neuro sabina and states no sensation below his knees. 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 - Patient has remained afebrile, hemodynamically stable since admission. on admission, exam with necrotic tissue involving the left fourth and fifth toe and plantar surface of the left foot. - LLE Doppler negative for DVT - LLE arterial duplex positive for hemodynamically significant stenosis in the distal anterior tibial artery and dorsalis pedis artery. - MRI foot and ankle 11/13 shows soft tissues ulcer of lateral forefoot with cellulitis with OM of fifth metatarsal head and phalanges with soft tissue gas of forefoot ?secondary to direct extension from soft tissue ulcer vs necrotizing fascitis; tenosynovitis of extensor digitorum - s/p left BKA 11/16 by ortho-OR culture from 11/16 with Citrobacter. Discussed with ID Dr. Jansen 11/19. Okay to discontinue vanc and continue cefepime only (1gm IV daily) Cipro is not a good option given his ESRD and Afib being on amio. Prior blood clx with diphtheroids- Blood culture 11/20 negative to date Plan for 2 weeks antibiotics. Patient will need ultrasound guided IV prior to discharge -Stump pain: add gabapentin 200mg daily for nerve pain, continue oxycodone (2) Atrial fibrillation with RVR, new onset - since 11/15/21, still in rate controlled Afib, asymptomatic. TTE reviewed, no new change. Seen by cardio-transitioned to PO amiodarone. Heparin drip held briefly due to bleeding at stump and permacath site in post op period Bleeding resolved, H/H remains stable. Cleared by Vascular surgery and ortho to resume heparin drip--resumed 11/20. -transitioned to Eliquis 5mg BID with no recurrent bleed -Tentatively scheduled for cardioversion 11/26 by Cardiology (3) EARLENE on CKD4, now ESRD - Permacath placed 11/15, had 1st HD 11/15, with subsequent HD 11/17 and 11/19 per nephro - Losartan and furosemide on hold. Hold nephrotoxics, ABx dosing per pharmacy based on renal function - abelardo need OP dialysis set up (4) Hypoxia: -CXR and chest clear, stable on 2 L of NC, wean down as tolerated, continue incentive spirometer. S/p 2 U of PRBC transfusion. Anemia and deconditioning likely contributing. Avoid aggressive IVF given his ESRD. (5) Anemia of CKD: -Hgb 7.5 on presentation (baseline ~ 10.0) and s/p 2 U of PRBC, now Hb >8. Check intermittently, transfuse as needed. Aranesp therapy per nephro. Watch for bleeding while on anticoagulation (6) Diabetes mellitus, type 2: -Hgb A1c 7.8 10/2021; diabetic management per pharmacy (7) Hypothyroidism: -Continue levothyroxine (8) Pulmonary arterial hypertension: - Appears euvolemic, hold furosemide (9) Hypertension- - BP lower now that he is on dialysis. Home amlodipine discontinued. Still on Toprol and clonidine. Consider weaning off Clonidine 10) Peripheral artery disease LLE- LLE arterial duplex with hemodynamically significant stenosis of distal ant tibial artery and dorsalis pedis artery; Seen by vascular surgery- no intervention needed New left wrist fluid collection -May be related to lab draw on that side (evidence of venous puncture on his hand/wrist). will elevate wrist, apply ice Q shift. -resolving -will place left arm on limb alert (to save for future dialysis site) DVT prophylaxis: Eliquis Dispo: Patient is stable for SNF placement. Will need ultrasound guided IV prior to discharge ([facility]) Admission and Anticipated Discharge Date Admission Date: November 12, 2021 Subjective Reports ongoing stump pain, not relieved with oxycodone or dilaudid Plan for cardioversion tomorrow No further bleeding episodes, currently on Eliquis BM yesterday Physical Exam Physical Exam: No acute distress, pleasant, non toxic Respiratory: breathing comfortably, no wheezing/rhonchi Cardiovascular: irregular but not rapid Gastrointestinal (Abdomen): soft, non tender, non distended, obese Musculoskeletal: left stump--dressing is clean/dry/intact Neurologic: awake, alert, spontaneously moving extremities Results & Data Results & Data ([facility]) Vital Signs (Past 12 Hours) Vital Signs Temp Pulse Pulse Pulse Resp BP BP 11/25/21 11:02 36.7 C 79 19 112/63 11/25/21 07:13 36.7 C 70 19 117/62 11/25/21 04:37 71 124/67 11/25/21 03:29 36.7 C 62 18 115/56 L 11/25/21 00:56 69 121/71 Pulse Ox 11/25/21 11:02 97 11/25/21 07:13 96 11/25/21 04:37 11/25/21 03:29 98 11/25/21 00:56 Medications Administered Current Inpatient Medications Acetaminophen (Acetaminophen 325 Mg Tab) 650 mg PO Q4H PRN PRN Reason: Pain or Fever Stop: 12/12/21 14:38 Last Admin: 11/24/21 23:41 Dose: 650 mg Documented by: Allopurinol (Allopurinol 100 Mg Tab) 50 mg PO DAILY BERTHA Stop: 12/13/21 08:59 Last Admin: 11/25/21 08:10 Dose: 50 mg Documented by: Amiodarone HCl (Amiodarone 200 Mg Tab) 400 mg PO BIDM BERTHA Stop: 12/20/21 10:29 Last Admin: 11/25/21 08:08 Dose: 400 mg Documented by: Amlodipine Besylate (Amlodipine Besylate 5 Mg Tab) 5 mg PO DAILY BERTHA Stop: 12/13/21 08:59 Last Admin: 11/15/21 10:17 Dose: 5 mg Documented by: Apixaban (Apixaban 5 Mg Tablet) 5 mg PO BID BERTHA Stop: 12/22/21 20:59 Last Admin: 11/25/21 08:08 Dose: 5 mg Documented by: Aspirin (Aspirin 81 Mg Ectab) 81 mg PO DAILY BERTHA Stop: 12/13/21 08:59 Last Admin: 11/25/21 08:09 Dose: 81 mg Documented by: Atorvastatin Calcium (Atorvastatin 40 Mg Tab) 40 mg PO DAILY BERTHA Stop: 12/13/21 08:59 Last Admin: 11/25/21 08:09 Dose: 40 mg Documented by: Bisacodyl (Bisacodyl 10 Mg Supp) 10 mg TX DAILY PRN PRN Reason: Constipation Stop: 12/16/21 19:47 Brimonidine Tartrate (Brimonidine Tartrate-P 0.15% 5 Ml Btl) 1 drops OPB BID BERTHA Stop: 12/12/21 20:59 Last Admin: 11/25/21 08:11 Dose: 1 drops Documented by: Calcitriol (Calcitriol 0.25 Mcg Capsule) 0.5 mcg PO BID BERTHA Stop: 12/12/21 20:59 Last Admin: 11/25/21 08:08 Dose: 0.5 mcg Documented by: Clonidine HCl (Clonidine Hcl 0.1 Mg Tab) 0.1 mg PO BID BERTHA Stop: 12/12/21 20:59 Last Admin: 11/25/21 08:42 Dose: 0.1 mg Documented by: Cyanocobalamin (Cyanocobalamin (B-12) 100 Mcg Tablet) 100 mcg PO QAM BERTHA Stop: 11/27/21 09:01 Last Admin: 11/25/21 08:09 Dose: 100 mcg Documented by: Dextrose (Dextrose 50% 50 Ml Syringe) 25 - 50 ml IV UD PRN; Protocol PRN Reason: Hypoglycemia Protocol Stop: 12/12/21 17:14 Diphenhydramine HCl (Diphenhydramine Capsule 25 Mg Cap) 25 mg PO Q8H PRN PRN Reason: Itching Stop: 12/16/21 19:47 Docusate Sodium (Docusate Sodium 100 Mg Cap) 100 mg PO BID BERTHA Stop: 12/16/21 20:59 Last Admin: 11/25/21 08:42 Dose: 100 mg Documented by: Ferrous Sulfate (Ferrous Sulfate 325 Mg Tab) 325 mg PO BIDM BERTHA Stop: 12/24/21 16:59 Last Admin: 11/25/21 08:10 Dose: 325 mg Documented by: Folic Acid (Folic Acid 1 Mg Tab) 1 mg PO QAM BERTHA Stop: 12/12/21 09:01 Last Admin: 11/25/21 08:08 Dose: 1 mg Documented by: Gabapentin (Gabapentin 100 Mg Cap) 200 mg PO DAILY [facility] Stop: 12/25/21 11:14 Glucagon (Glucagon For Inj 1 Mg Vial) 1 mg IM UD PRN; Protocol PRN Reason: Hypoglycemia Protocol Stop: 12/12/21 17:14 Glucose (Glucose 40% Gel 15 Gm Tube) 15 - 30 gm PO UD PRN; Protocol PRN Reason: Hypoglycemia Protocol Stop: 12/12/21 17:14 Glucose (Glucose 10 Tabs/Tube) 4 - 8 tabs PO UD PRN; Protocol PRN Reason: Hypoglycemia Protocol Stop: 12/12/21 17:14 Hydromorphone HCl (Hydromorphone Inj 1 Mg/Ml Syringe) 1 mg IV Q4H PRN PRN Reason: Pain Stop: 12/09/21 00:02 Last Admin: 11/25/21 08:06 Dose: 1 mg Documented by: Cefepime HCl 1,000 mg/ Syringe 11.3 mls @ 5.5 mls/min IV DAILY@1600 BERTHA; Protocol Stop: 01/02/22 15:59 Last Admin: 11/24/21 16:32 Dose: 5.5 mls/min Documented by: Insulin Aspart (Insulin Aspart Per Unit) 0 units SC ACHS [facility]; Protocol Stop: 12/12/21 17:29 Last Admin: 11/25/21 08:19 Dose: 3 units Documented by: Insulin Glargine (Insulin Glargine Solostar 100 Units/Ml 3 Ml Pen) 0 units SC BID [facility]; Protocol Stop: 12/23/21 20:59 Last Admin: 11/25/21 08:19 Dose: 7 units Documented by: Latanoprost (Latanoprost 0.005% Op Soln 2.5 Ml Btl) 1 drops OP HS [facility] Stop: 12/12/21 20:59 Last Admin: 11/24/21 21:58 Dose: 1 drops Documented by: Levothyroxine Sodium (Levothyroxine Sodium 50 Mcg Tablet) 50 mcg PO DAILYBB [facility] Stop: 12/13/21 06:29 Last Admin: 11/25/21 06:02 Dose: 50 mcg Documented by: Magnesium Hydroxide (Magnesium Hydroxide Susp 30 Ml Udc) 30 ml PO Q6H PRN PRN Reason: Constipation Stop: 12/16/21 19:47 Metoclopramide HCl (Metoclopramide Hcl Inj 5 Mg/Ml 2 Ml Vial) 10 mg IV Q6H PRN PRN Reason: Nausea And Vomiting Stop: 12/16/21 19:47 Last Admin: 11/17/21 09:46 Dose: 10 mg Documented by: Metoprolol Succinate (Metoprolol Succ 50mg Ext Rel Tab) [facility] [place] Stop: 12/13/21 08:59 Last Admin: 11/25/21 08:09 Dose: 100 mg Documented by: Metoprolol Tartrate (Metoprolol Tartrate 1 Mg/Ml Vial) 5 mg IV Q4 PRN; Protocol PRN Reason: for sustained HR>120 Stop: 12/15/21 11:59 Miscellaneous (Carbohydrates For Hypoglycemia ) 15 - 30 gm PO UD PRN PRN Reason: Hypoglycemia Treatment Stop: 12/12/21 17:14 Miscellaneous Information (Pharmacy Glycemic Mgmt Consult) 1 ea N/A UD PRN PRN Reason: Consult Stop: 12/12/21 16:54 Multivitamins (Multivitamin Tab) 1 tab PO [facility] Stop: 12/17/21 08:59 Last Admin: 11/25/21 08:08 Dose: 1 tab Documented by: Naloxone HCl (Naloxone Hcl 0.4 Mg/1 Ml Vial/Carp) 0.1 mg IV Q5M PRN PRN Reason: Oversedation/Resp Depression Stop: 12/16/21 19:47 Ondansetron HCl (Ondansetron Inj 2 Mg/Ml 2 Ml Vial) 4 mg IV Q6H PRN PRN Reason: Nausea And Vomiting Stop: 12/16/21 19:47 Last Admin: 11/18/21 11:40 Dose: 4 mg Documented by: Oxycodone/Acetaminophen (Oxycodone/Acetaminophen 5mg/325mg Tab) 1 - 2 tab PO Q4H PRN PRN Reason: Moderate Pain Stop: 11/28/21 12:41 Last Admin: 11/25/21 04:39 Dose: 2 tab Documented by: Sennosides (Senna 8.6 Mg Tab) 17.2 mg PO [facility] Stop: 12/16/21 20:59 Last Admin: 11/24/21 21:57 Dose: 17.2 mg Documented by: (1) Osteomyelitis Laterality: unspecified laterality Osteomyelitis location: foot Osteomyelitis type: unspecified type Qualified Code(s): M86.9 - Osteomyelitis, unspecified
[2021-11-25] MEDS: CEFEPIME 1,000 MG in SYRINGE 0 ML IV SCH (16:50)
[2021-11-25] MEDS: LATANOPROST 0.005% OP SOLN 2.5 ML BTL OP SCH (20:17)
[2021-11-25] MEDS: SENNA 8.6 MG TAB PO SCH (20:20)
--- NOTE | 2021-11-26 04:26 | Communication Note ---
Date of Service: November 26, 2021 Patient with groin discomfort as per RN. Somewhat confused as per RN. Urinary retention noted, bladder scan of 811 mL on straight cath. Urine noted to be dark yellow and foul-smelling as per RN. UA WBC esterase CT head initial read: No acute intracranial hemorrhage. No midline shift or mass effect. The territorial saleh-white matter differentiation is maintained throughout. Age- related cerebral volume loss. Periventricular and subcortical white matter hypoattenuation, consistent with chronic microangiopathy. CT abdomen pelvis initial read: Circumferential wall thickening of the rectum, measuring up to 1.5 cm. Diverticulosis, without acute diverticulitis. No small bowel obstruction. No hydronephrosis or obstructive uropathy. Evaluation limited due to lack of contrast. Completelydecompressed urinarybladder, which limits evaluation. AP Encephalopathy ? Complicated UTI (? Possible gram-positive uropathogen such as Enterococcus given ongoing cefepime Rx for Citrobacter osteomyelitis) ? New gabapentin Rx Follow urine CS Zosyn in place of cefepime for broader antibiotic coverage until urine CS back Hold gabapentin for now
[2021-11-26 04:44] LABS: Appearance Urine Cloudy (Clear); Bilirubin Urine Negative (Negative); Blood Urine 2+ (Negative); Color Urine Dark Yellow; Epithelial Cell Urine Auto >30 /lpf (0-5); Glucose Urine UA Negative (Negative); Ketones Urine Trace (Negative); Leukocyte Esterase Urine 1+ (Negative); Nitrite Urine Negative (Negative); Protein Urine 2+ (Negative); Specific Gravity Urine 1.018 (1.000-1.030); Urobilinogen Urine Negative (Negative); WBC Urine Automated >30 /hpf (0-5)
[2021-11-26] MEDS: oxyCODONE/ACETAMINOPHEN 5mg/325mg TAB PO PRN ×2 (04:47→21:14)
[2021-11-26 04:53] LABS: Basophils # (auto) 0.01 K/uL (0-0.2); Basophils % (auto) 0.1 %; Eosinophils # (auto) 0.15 K/uL (0-0.5); Eosinophils % (auto) 1.9 %; Hematocrit (blood only) 29.2 % (42-52); Hemoglobin 8.7 g/dL (14.0-18.0); Immature Granulocytes # (auto) 0.06 K/uL (0.00-0.02); Immature Granulocytes % (auto) 0.8 %; Lymphocytes # (auto) 1.19 K/uL (1.2-3.4); Lymphocytes % (auto) 15.4 %; Mean Corpuscular Hemoglobin 27.9 pg (25-34); Mean Corpuscular Hgb Conc 29.8 g/dL (32-36); Mean Corpuscular Volume 93.6 fL (80-100); Mean Platelet Volume 10.8 fL (7.4-10.4); Monocytes # (auto) 0.52 K/uL (0.11-0.59); Monocytes % (auto) 6.7 %; Neutrophils # (auto) 5.81 K/uL (1.4-6.5); Neutrophils % (auto) 75.1 %; Platelet Count 186 K/uL (130-400); RDW Coefficient of Variation 17.7 % (11.5-14.5); RDW Standard Deviation 60.4 fL (36.4-46.3); Red Blood Count 3.12 M/uL (4.7-6.1); White Blood Count 7.74 K/uL (4.8-10.8)
[2021-11-26 05:04] LABS: Bacteria Urine Automated 1+ (Negative)
[2021-11-26 05:31] LABS: Albumin Level 2.7 gm/dl (3.4-5.0); BUN Creatinine Ratio 6.4 (10-20); Est GFR (African American) 7.8 ml/min; Est GFR (Non-African American) 6.7 ml/min; Phosphorus 7.8 mg/dl (2.5-4.9); Potassium 4.1 mmol/L (3.5-5.1)
[2021-11-26] MEDS: LEVOTHYROXINE SODIUM 50 MCG TABLET PO SCH (06:16)
[2021-11-26] MEDS ORDERED: DAPTOmycin 1 MG in SYRINGE 0 ML IV ONE (06:21)
[2021-11-26] MEDS ORDERED: PIPERACILL/TAZOBAC CONSULT ACTIVE PRN (06:27)
[2021-11-26] MEDS ORDERED: PIPERACILLIN/TAZOBACTAM 4.5 GM in DEXTROSE 5% 100 ML IV SCH ×2 (07:00→17:00)
--- NOTE | 2021-11-26 07:00 | Anesthesiology Consultation ---
Date of Service November 26, 2021 Assessment & Plan Chart Review Chart Review: Acceptable Risk for Surgery Consults Requested none ASA ASA4 Proposed Anesthesia Anesthesia Type: MAC Risk / Benefits Reviewed With: PT / POA / Parent / Guardian, Accepts Plan and Informed Consent Obtained Additional Notes DNR/DNI held during periop timeframe. Pt acknowledges understanding. History Surgery Operation Date: 11/15/21 07:55 Proposed Procedures p Perm Catheter Placement - Patricio Hdez MD Operation Date: 11/16/21 07:00 Proposed Procedures p Left Below Knee Amputation - Joselito Jay DO Operation Date: 11/26/21 07:15 Proposed Procedures p Cardioversion Control Clerk Repairs w/Anesthesia - David Givens MD Operation Date: 11/26/21 07:15 Proposed Procedures p Cardioversion - David Givens MD Height/Weight Height: 5 ft 8 in Weight: 126 kg Allergies Allergy/AdvReac Type Severity Reaction Status Date / Time metformin Allergy Intermediate GI SYMPTOMS Verified 09/28/21 12:30 isosorbide Allergy Mild Rash Verified 09/28/21 12:30 lisinopril Allergy Unknown CAN'T Verified 09/28/21 12:30 REMEMBER Medications Home Medications Medication Instructions Recorded Confirmed Last Taken aspirin 81 mg tablet,delayed 81 mg PO DAILY #90 tab 06/06/20 11/12/21 01/23/21 release (Adult Low Dose Aspirin) pen needle, diabetic 31 gauge x #100 ea 02/22/21 07/06/21 Unknown 3/16" (BD Ultra-Fine Mini Pen Needle) amlodipine 5 mg tablet 5 mg PO DAILY #30 tab 03/28/21 11/12/21 Unknown clonidine HCl 0.1 mg tablet 0.1 mg PO BID #180 tab 05/07/21 11/12/21 Unknown atorvastatin 40 mg tablet 40 mg PO DAILY #90 tab 06/11/21 11/12/21 Unknown diphenoxylate-atropine 2.5 1 tab PO QID PRN #60 tab 07/10/21 11/12/21 Unknown mg-0.025 mg tablet (Lomotil) metoprolol succinate 100 mg 100 mg PO QAM #90 tab 09/03/21 11/12/21 Unknown tablet,extended release 24 hr allopurinol 100 mg tablet 50 mg PO DAILY #45 tab 09/05/21 11/12/21 Unknown insulin glargine 100 unit/mL (3 50 unit SQ PM #15 ml 09/05/21 11/12/21 Unknown mL) subcutaneous pen (Lantus Solostar U-100 Insulin) brimonidine 0.15 % eye drops 1 drp OPB BID 11/12/21 11/12/21 Unknown calcitriol 0.5 mcg capsule 0.5 mcg PO BID 11/12/21 11/12/21 Unknown cholecalciferol (vitamin D3) 50 150 mcg PO DAILY 11/12/21 11/12/21 Unknown mcg (2,000 unit) tablet furosemide 40 mg tablet 40 mg PO BID 11/12/21 11/12/21 Unknown latanoprost 0.005 % eye drops 1 drp OPHTHALMIC (EYE) HS 11/12/21 11/12/21 Unknown levothyroxine 50 mcg tablet 50 mcg PO DAILY 11/12/21 11/12/21 Unknown loperamide 2 mg capsule (Imodium 2 mg PO Q4H PRN 11/12/21 11/12/21 Unknown A-D) losartan 50 mg tablet 50 mg PO BID 11/12/21 11/12/21 Unknown multivitamin 1 tab PO DAILY 11/12/21 11/12/21 Unknown Active Medications Generic Name Dose Route Start Last Admin Trade Name Freq PRN Reason Stop Dose Admin Acetaminophen 650 mg 11/12/21 14:39 11/24/21 23:41 Acetaminophen 325 Mg Tab PO 12/12/21 14:38 650 mg Q4H PRN Administration Pain or Fever Allopurinol 50 mg 11/13/21 09:00 11/25/21 08:10 Allopurinol 100 Mg Tab PO 12/13/21 08:59 50 mg DAILY BERTHA Administration Amiodarone HCl 400 mg 11/20/21 10:30 11/25/21 16:28 Amiodarone 200 Mg Tab PO 12/20/21 10:29 400 mg BIDM BERTHA Administration Amlodipine Besylate 5 mg 11/13/21 09:00 11/15/21 10:17 Amlodipine Besylate 5 Mg Tab PO 12/13/21 08:59 5 mg DAILY BERTHA Administration Apixaban 5 mg 11/22/21 21:00 11/25/21 20:19 Apixaban 5 Mg Tablet PO 12/22/21 20:59 5 mg BID BERTHA Administration Aspirin 81 mg 11/13/21 09:00 11/25/21 08:09 Aspirin 81 Mg Ectab PO 12/13/21 08:59 81 mg DAILY BERTHA Administration Atorvastatin Calcium 40 mg 11/13/21 09:00 11/25/21 08:09 Atorvastatin 40 Mg Tab PO 12/13/21 08:59 40 mg DAILY BERTHA Administration Brimonidine Tartrate 1 drops 11/12/21 21:00 11/25/21 20:20 Brimonidine Tartrate-P 0.15% 5 Ml Btl OPB 12/12/21 20:59 1 drops BID BERTHA Administration Calcitriol 0.5 mcg 11/12/21 21:00 11/25/21 20:19 Calcitriol 0.25 Mcg Capsule PO 12/12/21 20:59 0.5 mcg BID BERTHA Administration Clonidine HCl 0.1 mg 11/12/21 21:00 11/25/21 20:24 Clonidine Hcl 0.1 Mg Tab PO 12/12/21 20:59 0.1 mg BID BERTHA Administration Cyanocobalamin 100 mcg 11/13/21 09:00 11/25/21 08:09 Cyanocobalamin (B-12) 100 Mcg Tablet PO 11/27/21 09:01 100 mcg QAM BERTHA Administration Docusate Sodium 100 mg 11/16/21 21:00 11/25/21 20:20 Docusate Sodium 100 Mg Cap PO 12/16/21 20:59 Not Given BID BERTHA Ferrous Sulfate 325 mg 11/24/21 17:00 11/25/21 16:28 Ferrous Sulfate 325 Mg Tab PO 12/24/21 16:59 325 mg BIDM BERTHA Administration Folic Acid 1 mg 11/13/21 09:00 11/25/21 08:08 Folic Acid 1 Mg Tab PO 12/12/21 09:01 1 mg QAM BERTHA Administration Gabapentin 200 mg 11/25/21 11:15 11/25/21 11:52 Gabapentin 100 Mg Cap PO 12/25/21 11:14 200 mg DAILY BERTHA Administration Hydromorphone HCl 1 mg 11/25/21 00:03 11/25/21 08:06 Hydromorphone Inj 1 Mg/Ml Syringe IV 12/09/21 00:02 1 mg Q4H PRN Administration Pain Insulin Aspart 0 units 11/12/21 17:30 11/25/21 21:29 Insulin Aspart Per Unit SC 12/12/21 17:29 Not Given ACHS [facility] Protocol Insulin Glargine 0 units 11/23/21 21:00 11/25/21 21:29 Insulin Glargine Solostar 100 Units/Ml 3 Ml Pen SC 12/23/21 20:59 7 units BID BERTHA Administration Protocol Latanoprost 1 drops 11/12/21 21:00 11/25/21 20:17 Latanoprost 0.005% Op Soln 2.5 Ml Btl OP 12/12/21 20:59 1 drops HS BERTHA Administration Levothyroxine Sodium 50 mcg 11/13/21 06:30 11/26/21 06:16 Levothyroxine Sodium 50 Mcg Tablet PO 12/13/21 06:29 50 mcg DAILYBB BERTHA Administration Metoclopramide HCl 10 mg 11/16/21 19:48 11/17/21 09:46 Metoclopramide Hcl Inj 5 Mg/Ml 2 Ml Vial IV 12/16/21 19:47 10 mg Q6H PRN Administration Nausea And Vomiting Metoprolol Succinate 100 mg 11/13/21 09:00 11/25/21 08:09 Metoprolol Succ 50mg Ext Rel Tab PO 12/13/21 08:59 100 mg QAM BERTHA Administration Multivitamins 1 tab 11/17/21 09:00 11/25/21 08:08 Multivitamin Tab PO 12/17/21 08:59 1 tab QAM BERTHA Administration Ondansetron HCl 4 mg 11/16/21 19:48 11/18/21 11:40 Ondansetron Inj 2 Mg/Ml 2 Ml Vial IV 12/16/21 19:47 4 mg Q6H PRN Administration Nausea And Vomiting Oxycodone/Acetaminophen 1 - 2 tab 11/14/21 12:42 11/26/21 04:47 Oxycodone/Acetaminophen 5mg/325mg Tab PO 11/28/21 12:41 1 tab Q4H PRN Administration Moderate Pain Sennosides 17.2 mg 11/16/21 21:00 11/25/21 20:20 Senna 8.6 Mg Tab PO 12/16/21 20:59 Not Given HS [facility] NPO Date Last Intake of Fluids: 11/26/21 Time Last Intake of Fluids: 00:01 Date Last Intake of Solids: 11/26/21 Time Last Intake of Solids: 00:01 Past Medical History Medical History Chronic renal insufficiency, stage IV (severe) Diabetes mellitus, type 2 Diabetic autonomic neuropathy Diabetic foot ulcer associated with type 2 diabetes mellitus Dyslipidemia Ex-smoker Foot drop RT FOOT (WEARS BRACE) Gait disturbance History of diabetic ulcer of foot Hx of gout Hypertension Hypothyroidism Morbid obesity with BMI of 45.0-49.9, adult Peripheral arterial disease Pulmonary arterial hypertension Sleep apnea NO DEVICE CURRENTLY Type 2 diabetes mellitus with retinopathy Vitamin D deficiency HD scheduled for this AM, K WNL Exercise / Class Metabolic Activity III < 4 Walking/Shop/Light housework Past Family History Family History Mother Pancreatic cancer Breast cancer Family history of diabetes mellitus Father Myocardial infarction Brother Prostate cancer Other No family history of adverse response to anesthesia Denies family history of Coronary heart disease Colorectal cancer Past Surgical History Surgical History (Updated 11/26/21 @ 06:58 by Dorothy Andrade DO) Amputated toe of right foot History of cataract surgery RT/LEFT History of colonoscopy S/P BKA (below knee amputation) unilateral left Social History Smoking Status: Never smoker Do You Dip or Chew Tobacco: No Hx Alcohol Use: No Hx Substance Use: No substance use type: does not use Physical Exam Vital Signs Last Vital Signs Temp 37.5 C 11/26/21 07:14 Pulse 77 11/26/21 07:14 Resp 18 11/26/21 07:14 BP 115/71 11/26/21 07:14 Pulse Ox 98 11/26/21 07:14 Constitutional + morbidly obese ENMT Mouth: + edentulous Thyromental Distance: > or= 3.5 Finger Breadths Mallampati Class: II Neck normal visual inspection, trachea midline and + facial hair; neck extension not limited Respiratory normal respiratory effort Auscultation: lungs clear to auscultation bilaterally Cardiovascular Rate/Rhythm: + abnormal rate and + abnormal rhythm (afib) Heart Sounds: no murmur Musculoskeletal Spine: normal cervical ROM Extremities: full ROM of extremities Neurologic moves all extremities Psychiatric Orientation: alert and oriented x 3 Testing Laboratory Results 11/26/21 04:41 11/26/21 04:41 PT 13.8 Seconds (9.0-12.0) H 11/15/21 15:27 INR 1.3 (0.9-1.1) H 11/15/21 15:27 APTT 38.8 Seconds (21.0-31.0) H 11/23/21 05:10 Hemoglobin A1c 7.8 % (4.5-5.6) H 11/13/21 02:11 Urine Color Dark Yellow 11/26/21 04:10 Urine Appearance Cloudy (Clear) A 11/26/21 04:10 Urine pH 5.0 (4.5-7.5) 11/26/21 04:10 Ur Specific [place] 1.018 (1.000-1.030) 11/26/21 04:10 Urine Protein 2+ (Negative) H 11/26/21 04:10 Urine Glucose (UA) Negative (Negative) 11/26/21 04:10 Urine Ketones Trace (Negative) H 11/26/21 04:10 Urine Nitrite Negative (Negative) 11/26/21 04:10 Ur Leukocyte Esterase 1+ (Negative) H 11/26/21 04:10 Urine WBC (Auto) >30 /hpf (0-5) H 11/26/21 04:10 Urine RBC (Auto) 10-30 /hpf (0-4) H 11/26/21 04:10 U Hyaline Cast (Auto) 1-5 /lpf (0-5) 11/26/21 04:10 U Epithel Cells (Auto) >30 /lpf (0-5) H 11/26/21 04:10 Urine Bacteria (Auto) 1+ (Negative) H 11/26/21 04:10 Blood Type O Positive 11/19/21 08:30 Antibody Screen NEGATIVE 11/19/21 08:30 11/20/21 05:55 Aerobic Blood Culture - Final Blood No growth in Aerobic bottle after 5 days. Anaerobic Blood Culture - Final No growth in Anaerobic bottle after 5 days. 11/20/21 05:55 Aerobic Blood Culture - Final Blood No growth in Aerobic bottle after 5 days. Anaerobic Blood Culture - Final No growth in Anaerobic bottle after 5 days. 11/16/21 16:50 Gram Stain - Final Leg,Left Aerobic and Anaerobic Culture - Final Citrobacter koseri 11/12/21 14:29 Aerobic Blood Culture - Final Blood No growth in Aerobic bottle after 5 days. Anaerobic Blood Culture - Final Diptheroids 11/18/21 06:08 Gram Stain - Final Sputum, Expectorated Sputum Culture - Final Moderate normal beronica. 11/12/21 14:30 Aerobic Blood Culture - Final Blood No growth in Aerobic bottle after 5 days. Anaerobic Blood Culture - Final No growth in Anaerobic bottle after 5 days. 11/12/21 15:10 Gram Stain - Final Foot,Left Wound Culture - Final Citrobacter koseri Alcaligenes faecalis 11/26/21 11/25/21 04:37 20:04 POC Glucose 125 H 134 H Electrocardiogram Date: 11/15/21 Findings: + AFIB @ (125) +PVCs Chest X-Ray Date: 11/16/21 Findings: + cardiomegaly and + pulmonary vascular congestion Echocardiogram Date: 11/15/21 EF: 55-60 RWMA: + none Other Findings: + atrial enlargement (LAD) and + LVH (mild concen) Valvular Disease: + MR (mild) pulm HTN [id number]
[2021-11-26] MEDS ORDERED: LIDOCAINE 2% 2 ML VIAL/AMP(20MG/ML) INFIL ONE (07:03)
[2021-11-26] MEDS ORDERED: PHENYLEPHRINE 100MCG/ML 5ML SYR ONE (07:03)
[2021-11-26] MEDS ORDERED: ePHEDrine sulfate 50 MG/ML SYR ONE (07:03)
[2021-11-26] MEDS ORDERED: PROPOFOL IV EMULSION 10 MG/ML 20 ML VIAL IV ONE (07:03)
--- NOTE | 2021-11-26 07:13 | CT Scan Report ---
CT head/brain wo con CLINICAL HISTORY: Ams Technique: Contiguous axial CT images of the head were acquired from the base of the skull to the karol alex without intravenous contrast administration. Images were viewed in brain, subdural and [facility]. Automated dose lowering techniques and/or adjustment according to patient size were utilized for this exam. Comparison: Comparison is made to CT head 01/24/2021 Findings: The ventricles, basal cisterns, and cerebral sulci are normal. There is no acute intracranial hemorrh age or evidence of acute territorial infarction. Neither mass effect, shift of the midline structures , nor abnormal extra-axial fluid collections are shown. Imaged portions of the paranasal sinuses and mastoid air cells are clear. The orbits appear normal. There are no acute fractures of the calvaria or scalp swelling. Impression: No acute intracranial hemorrhage, no evidence of acute territorial infarction or other acute intracra nial disease process. ACT 112: Negative or not required by law. Electronically signed by: Saeed Hurst M.D. 11/26/2021 7:12 AM
--- NOTE | 2021-11-26 07:30 | CT Scan Report ---
CT abd pelvis wo con CLINICAL HISTORY: Groin pain. Gross Heamturia COMPARISON STUDY: No previous studies for comparison. CT DOSE: 3017.71 mGy.cm TECHNIQUE: Standard CT of the Abdomen and Pelvis was performed without IV contrast. The patient did not receive oral contrast. A dose lowering technique was utilized adhering to the principles of LINH Calderon FINDINGS: Lung base: There is evidence for bibasilar alveolar opacities with differential being atelectasis karol marlo early pneumonia. There is cardiomegaly with extensive coronary artery calcification. Abdominal cavity: There is no evidence for abdominal mass, adenopathy or ascites. There is a small ve ntral abdominal wall hernia in the right lower quadrant containing mesenteric fat. No bowel loop ancelmo iation is seen. Liver: The liver is homogeneous in attenuation on these limited noncontrast images.. Spleen: The spleen is homogeneous in attenuation on these limited noncontrast images. There is mild s plenomegaly. Pancreas: The pancreas is homogeneous in attenuation on these limited noncontrast images. Gall Bladder: The gallbladder is distended with minimal cholelithiasis and sludge. There is no CT yuridia dence for acute cholecystitis. Adrenal glands: The adrenal glands are normal in size and attenuation on these limited noncontrast im ages. Kidneys: The kidneys are homogeneous in attenuation on these limited noncontrast images. There is no evidence for gross renal mass, calyceal calculus or hydronephrosis bilaterally. There is a 4 mm paren chymal calcification seen on the left. Bowel: The bowel loops are normally placed within the abdomen and pelvis without evidence for dilatat ion or obstruction. There is no evidence for mass lesion. There is mild sigmoid diverticulosis withou t evidence for diverticulitis. There is mucosal thickening of the rectum which probably relates to no ndistention. However, follow-up is recommended. There are no inflammatory changes present. There is n o evidence for free air. The appendix is not visualized. Bladder: The bladder is decompressed and cannot be evaluated. : There is no evidence for pelvic mass or adenopathy. There is moderate prostate enlargement. Vasculature: There is no evidence for focal aneurysmal dilatation of the abdominal aorta. Atheroscler otic calcification is present. Osseous structures: There is no acute osseous pathology. Degenerative changes are present with findin gs suspicious for lumbar canal stenosis. IMPRESSION: 1. No evidence for obstructing renal calculus 2. The bladder is decompressed and cannot be evaluated. 3. Cholelithiasis with no CT evidence for acute cholecystitis. 4. Mild sigmoid diverticulosis without evidence for diverticulitis. 5. Mucosal thickening of the rectum which is most likely related to decompression. However, follow-up is necessary. 6. Additional nonacute findings are delineated above. ACT 112: Negative or not required by law. Electronically signed by: Levar Casarez M.D. 11/26/2021 7:29 AM
--- NOTE | 2021-11-26 07:41 | Cardioversion ---
Date of Service November 26, 2021 PG Electrical Cardioversion Rp Electrical Cardioversion Report The patient was brought to the laboratory being NPO after midnight and was identified in the laboratory, connected to the recording apparatus including electrocardiographic monitoring, noninvasive blood pressure monitoring and pulse oximetry. Anteroposterior patch electrodes were placed. The patient was anesthetized by the anesthesia department. Once adequate anesthesia was obtained a synchronized biphasic shock was delivered using 200 J with conversion to a sinus rhythm. The patient awoke from the anesthetic without sequela, will be observed briefly and then returned to floor. Coding Level of Care Code Cardioversion, elective Additional Codes Electrical Cardioversion Report ([id number])
--- NOTE | 2021-11-26 07:48 | Anesthesiology Progress Note ---
Date of Service November 26, 2021 Anesthesia Post Procedure Vital Signs Vital Signs: Temp Pulse Resp BP BP Pulse Ox 11/26/21 07:14 37.5 C 77 18 115/71 98 11/26/21 04:07 36.8 C 72 18 122/65 96 11/25/21 22:28 36.6 C 66 18 116/63 97 11/25/21 19:43 36.7 C 70 18 111/57 L 97 11/25/21 15:38 36.8 C 75 19 116/66 97 11/25/21 11:02 36.7 C 79 19 112/63 97 Pain Intensity Left Lower Knee: Pain Intensity: 6 Abdomen: Pain Intensity: 5 Transfer of Care Handoff Completed per policy Notes Mental Status: alert / awake / arousable Patient Amnestic to Procedure: Yes Nausea / Vomiting: adequately controlled Pain: adequately controlled Airway Patency, RR, SpO2: stable & adequate BP & HR: stable & adequate Hydration State: stable & adequate Anesthetic Complications: no major complications apparent and Pt Satisfied with anesthetic care
[2021-11-26] MEDS: BRIMONIDINE TARTRATE-P 0.15% 5 ML BTL OPB SCH ×2 (08:39→21:02)
[2021-11-26] MEDS: DOCUSATE SODIUM 100 MG CAP PO SCH ×2 (08:39→21:01)
[2021-11-26] MEDS: MULTIVITAMIN TAB PO SCH (08:40)
[2021-11-26] MEDS: FOLIC ACID 1 MG TAB PO SCH (08:40)
[2021-11-26] MEDS: CYANOCOBALAMIN (B-12) 100 MCG TABLET PO SCH (08:42)
[2021-11-26] MEDS: CALCITRIOL 0.25 MCG CAPSULE PO SCH ×2 (08:42→21:01)
[2021-11-26] MEDS: ATORVASTATIN 40 MG TAB PO SCH (08:43)
[2021-11-26] MEDS: allopurinoL 100 MG TAB PO SCH (08:43)
[2021-11-26] MEDS: FERROUS SULFATE 325 MG TAB PO SCH ×2 (08:46→16:33)
[2021-11-26] MEDS: INSULIN ASPART PER UNIT SC SCH ×4 (08:47→20:38)
[2021-11-26] MEDS: ASPIRIN 81 MG ECTAB PO SCH (08:59)
[2021-11-26] MEDS: APIXABAN 5 MG TABLET PO SCH ×2 (09:00→21:00)
[2021-11-26] MEDS ORDERED: CEFEPIME 1,000 MG in SYRINGE 0 ML IV SCH (09:00)
[2021-11-26] MEDS: ONDANSETRON INJ 2 MG/ML 2 ML VIAL IV PRN (09:46)
--- NOTE | 2021-11-26 10:39 | Nephrology Progress Note ---
Date of Service November 26, 2021 Assessment & Plan (1) ESRD (end stage renal disease): Plan: Attributed to [facility]. Started HD 11/15/21 via [facility]. Orders for HD entered into the EMR and reviewed with the dialysis nurse today. 3.5 hrs, UF 1 L. Medications appropriately dosed for IHD. Renal diet. (2) Anemia: Plan: Epogen 13390 units provided 11/23/21. Oral FeSO4 BID for CANDELARIO. (3) Secondary hyperparathyroidism of renal origin: Plan: Remains on calcitriol 0.5 mg/dL BID. (4) Urinary retention: Plan: Flomax started this AM. Document I/O's and bladder scan PRN. Document PVR. Monitor for contraction cystitis. Admission and Anticipated Discharge Date Admission Date: November 12, 2021 Subjective No acute events overnight. Quincy was seen and evaluated prior to and during hemodialysis. He is tolerating HD well. Qb adequate. BP acceptable. No complications with treatment. This morning, he reported fullness in his lower pelvis. Bladder scan demonstrated notable urine retention. Straight cath performed yielding 1 L of casandra urine with a clot. Symptoms resolved. Review of Systems Review of Systems: All systems reviewed & are unremarkable except as noted in HPI & below Physical Exam Constitutional: well developed; no acute distress Eyes: + anicteric sclerae; no corneal abnormality ENMT: Mouth: no oral mucosal abnormality and oral mucous membranes not dry Neck: normal visual inspection and trachea midline Respiratory: normal respiratory effort Auscultation: lungs clear to auscultation bilaterally Cardiovascular: Rate/Rhythm: regular rate Heart Sounds: normal S1 and normal S2 Extremities: no edema Musculoskeletal: Extremities: no cyanosis and no clubbing Skin: normal turgor; no lesions Neurologic: Motor/Sensory: no tremor and no asterixis Psychiatric: Orientation: alert and oriented x 3 Results & Data ([facility]) Vital Signs (Past 12 Hours) Vital Signs Temp Pulse Pulse Resp BP BP BP 11/26/21 09:45 63 112/68 11/26/21 09:15 69 89/67 L 11/26/21 09:09 36.9 C 60 11/26/21 08:28 37.0 C 70 19 119/75 11/26/21 07:55 61 18 125/62 11/26/21 07:40 60 18 134/58 L 11/26/21 07:14 37.5 C 77 18 115/71 11/26/21 04:07 36.8 C 72 18 122/65 Pulse Ox 11/26/21 09:45 11/26/21 09:15 11/26/21 09:09 11/26/21 08:28 98 11/26/21 07:55 99 11/26/21 07:40 99 11/26/21 07:14 98 11/26/21 04:07 96 Laboratory Results Laboratory Results - last 24 hr 11/25/21 11/25/21 11/25/21 11:06 16:11 20:04 WBC RBC Hgb Hct MCV MCH MCHC RDW Std Deviation RDW Coeff of Millie Plt Count MPV Immature Gran % (Auto) Neut % (Auto) Lymph % (Auto) Dunn % (Auto) Eos % (Auto) Baso % (Auto) Neut # (Auto) Lymph # (Auto) Dunn # (Auto) Eos # (Auto) Baso # (Auto) Immature Gran # (Auto) Sodium Potassium Chloride Carbon Dioxide Anion Gap BUN Creatinine Est Cr Clr Drug Dosing Est GFR ( Amer) Est GFR (Non-Af Amer) BUN/Creatinine Ratio Glucose POC Glucose 127 H 119 H 134 H Calcium Phosphorus Albumin Urine Color Urine Appearance Urine pH Ur Specific [place] Urine Protein Urine Glucose (UA) Urine Ketones Urine Blood Urine Nitrite Urine Bilirubin Urine Urobilinogen Ur Leukocyte Esterase Urine WBC (Auto) Urine RBC (Auto) U Hyaline Cast (Auto) U Epithel Cells (Auto) Urine Bacteria (Auto) Urine Yeast 11/26/21 11/26/21 11/26/21 04:10 04:37 04:41 WBC 7.74 RBC 3.12 L Hgb 8.7 L Hct 29.2 L MCV 93.6 MCH 27.9 MCHC 29.8 L RDW Std Deviation 60.4 H RDW Coeff of Millie 17.7 H Plt Count 186 MPV 10.8 H Immature Gran % (Auto) 0.8 Neut % (Auto) 75.1 Lymph % (Auto) 15.4 Dunn % (Auto) 6.7 Eos % (Auto) 1.9 Baso % (Auto) 0.1 Neut # (Auto) 5.81 Lymph # (Auto) 1.19 L Dunn # (Auto) 0.52 Eos # (Auto) 0.15 Baso # (Auto) 0.01 Immature Gran # (Auto) 0.06 H Sodium Potassium Chloride Carbon Dioxide Anion Gap BUN Creatinine Est Cr Clr Drug Dosing Est GFR ( Amer) Est GFR (Non-Af Amer) BUN/Creatinine Ratio Glucose POC Glucose 125 H Calcium Phosphorus Albumin Urine Color Dark Yellow Urine Appearance Cloudy A Urine pH 5.0 Ur Specific [place] 1.018 Urine Protein 2+ H Urine Glucose (UA) Negative Urine Ketones Trace H Urine Blood 2+ H Urine Nitrite Negative Urine Bilirubin Negative Urine Urobilinogen Negative Ur Leukocyte Esterase 1+ H Urine WBC (Auto) >30 H Urine RBC (Auto) 10-30 H U Hyaline Cast (Auto) 1-5 U Epithel Cells (Auto) >30 H Urine Bacteria (Auto) 1+ H Urine Yeast Not Reportable 11/26/21 11/26/21 04:41 08:25 WBC RBC Hgb Hct MCV MCH MCHC RDW Std Deviation RDW Coeff of Millie Plt Count MPV Immature Gran % (Auto) Neut % (Auto) Lymph % (Auto) Dunn % (Auto) Eos % (Auto) Baso % (Auto) Neut # (Auto) Lymph # (Auto) Dunn # (Auto) Eos # (Auto) Baso # (Auto) Immature Gran # (Auto) Sodium 138 Potassium 4.1 Chloride 100 Carbon Dioxide 24 Anion Gap 14 H BUN 48 H Creatinine 7.49 H* D Est Cr Clr Drug Dosing 12.0 Est GFR ( Amer) 7.8 Est GFR (Non-Af Amer) 6.7 BUN/Creatinine Ratio 6.4 L Glucose 112 H POC Glucose 111 H Calcium 8.0 L Phosphorus 7.8 H Albumin 2.7 L Urine Color Urine Appearance Urine pH Ur Specific [place] Urine Protein Urine Glucose (UA) Urine Ketones Urine Blood Urine Nitrite Urine Bilirubin Urine Urobilinogen Ur Leukocyte Esterase Urine WBC (Auto) Urine RBC (Auto) U Hyaline Cast (Auto) U Epithel Cells (Auto) Urine Bacteria (Auto) Urine Yeast PG Care Time/CCT Total # of Minutes Spent Total Time Spent with Patient: Total time spent is greater than 50% in coordination of care (as documented) at patient's floor/unit and/or counseling patient: Coding Level of Care Code 98172 Subseq Hosp Care Lvl 3 Diagnoses ESRD (end stage renal disease) N18.6 Anemia N18.6; D63.1; Z99.2 Anemia type: due to chronic kidney disease Chronic kidney disease stage: on chronic dialysis Secondary hyperparathyroidism of renal origin N25.81 Urinary retention R33.9 (1) Anemia Anemia type: due to chronic kidney disease Chronic kidney disease stage: on chronic dialysis Qualified Code(s): N18.6 - End stage renal disease; D63.1 - Anemia in chronic kidney disease; Z99.2 - Dependence on renal dialysis
[2021-11-26] MEDS: METOCLOPRAMIDE HCL INJ 5 MG/ML 2 ML VIAL IV PRN (12:51)
[2021-11-26] MEDS: AMIODARONE 200 MG TAB PO SCH ×2 (13:26→20:59)
[2021-11-26] MEDS: METOPROLOL SUCC 50MG EXT REL TAB PO SCH (13:26)
[2021-11-26] MEDS: TAMSULOSIN HCL 0.4 MG CAP PO SCH (13:27)
[2021-11-26] MEDS: cloNIDine HCL 0.1 MG TAB PO SCH ×2 (13:29→21:14)
--- NOTE | 2021-11-26 13:42 | Pharmacy Report ---
Pharmacy Glycemic Short Note 2 - Date of Service November 26, 2021 - Glycemic Short BSG Results (Last 24 hours): 11/25/21 11/25/21 11/26/21 16:11 20:04 04:37 Glucose POC Glucose 119 H 134 H 125 H 11/26/21 11/26/21 11/26/21 04:41 08:25 12:42 Glucose 112 H POC Glucose 111 H 95 OUTPATIENT ANTIDIABETIC REGIMEN: * Lantus 50 units SC PM * HbA1c: 7.8% (11/13/21) ASSESSMENT: 11/26/21 * BSGs well-controlled yesterday, ranging 119-134 mg/dL, fasting BSG of 111 mg/dL this morning * Received 22 units of insulin (14 units of Lantus and 8 units of prandial/correctional Novolog) * NPO after midnight today for cardioversion (now post-op) * Will hold AM Lantus this morning and resume with HS once diet reordered 11/23/21 * Patient received total of 19 units of insulin yesterday, of which 15 units were basal insulin * Fasting BSG 114 mg/dL - basal dose decreased yesterday due to poor PO intake, fasting remains unchanged. May have scale for Lantus with reduced dosing if BSGs on lower end tonight as PO documented for lunch today 11/19/21 * Patient received 36 units of insulin yesterday (15 units of basal and 21 units of bolus). * BSGs yesterday were [phone] and fasting this morning was 189 mg/dL. * Increase basal to 20 units daily (~25% increase) as 10 units BID for easier titration. * Continue Novolog as BSGs stable throughout the day. 11/12 * 71 yo admitted secondary to osteomyelitis. Pharmacy has been consulted to assist with inpatient glycemic management. * Ordered a type 2 diabetic diet. Currently on Daptomycin and Cefepime. SCr at 7.18 mg/dL (patient is ESRD but refuses HD). * Did take 50 units of Lantus evening prior to admission. * Will hold Lantus for now given BSGs. * Start Novolog only. Target BSG of 110-140 mg/dL to help with infection and promote wound healing. PLAN FOR INPATIENT GLYCEMIC CONTROL: * Basal insulin * Lantus 5-7 units SC BID (see EHR for details) * hold AM Lantus today in light of NPO status * Bolus insulin * NovoLog per scale ACHS or Q6hrs while NPO * Goal Range: Low 110 mg/dL - High 140 mg/dL * Correction Factor: 18 mg/dL/unit * Nutritional / Prandial insulin per carb ratio of 1 unit per 12 grams CHO c onsumed
--- NOTE | 2021-11-26 16:26 | Hospitalist Progress Note ---
Date of Service November 26, 2021 Assessment & Plan (1) Osteomyelitis: Plan: 71 yo M w/ PMH of CKD stage IV, uncontrolled diabetes mellitus with peripheral neuropathy, hypertension, SUKHWINDER, and HLD presented 11/12 to our ED at referral of PCP for evaluation of SOB. Patient main concern was shortness of breath which was present for 5 days prior to admission however he was not aware of his left foot infection complicated with necrotic tissue. Pt does have peripheral neuro sabina and states no sensation below his knees. 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 - Patient has remained afebrile, hemodynamically stable since admission. on admission, exam with necrotic tissue involving the left fourth and fifth toe and plantar surface of the left foot. - LLE Doppler negative for DVT - LLE arterial duplex positive for hemodynamically significant stenosis in the distal anterior tibial artery and dorsalis pedis artery. - MRI foot and ankle 11/13 shows soft tissues ulcer of lateral forefoot with cellulitis with OM of fifth metatarsal head and phalanges with soft tissue gas of forefoot ?secondary to direct extension from soft tissue ulcer vs necrotizing fascitis; tenosynovitis of extensor digitorum - s/p left BKA 11/16 by ortho-OR culture from 11/16 with Citrobacter. Discussed with ID Dr. Jansen 11/19. Okay to discontinue vanc and continue cefepime only (1gm IV daily) Cipro is not a good option given his ESRD and Afib being on amio. Prior blood clx with diphtheroids- Blood culture 11/20 negative to date Plan for 2 weeks antibiotics. (until 11/30) Patient will need ultrasound guided IV prior to discharge -Stump pain: continue oxycodone, gabapentin held overnight for confusion (2) Atrial fibrillation with RVR, new onset - since 11/15/21, still in rate controlled Afib, asymptomatic. TTE reviewed, no new change. Seen by cardio-transitioned to PO amiodarone. Heparin drip held briefly due to bleeding at stump and permacath site in post op period Bleeding resolved, H/H remains stable. Cleared by Vascular surgery and ortho to resume heparin drip--resumed 11/20. -transitioned to Eliquis 5mg BID with no recurrent bleed -s/p CVN today (3) EARLENE on CKD4, now ESRD - Permacath placed 11/15, had 1st HD 11/15, with subsequent HD 11/17 and 11/19 per nephro - Losartan and furosemide on hold. Hold nephrotoxics, ABx dosing per pharmacy based on renal function - abelardo need OP dialysis set up (4) Hypoxia: -CXR and chest clear, stable on 2 L of NC, wean down as tolerated, continue incentive spirometer. S/p 2 U of PRBC transfusion. Anemia and deconditioning likely contributing. Avoid aggressive IVF given his ESRD. (5) Anemia of CKD: -Hgb 7.5 on presentation (baseline ~ 10.0) and s/p 2 U of PRBC, now Hb >8. Check intermittently, transfuse as needed. Aranesp therapy per nephro. Watch for bleeding while on anticoagulation (6) Diabetes mellitus, type 2: -Hgb A1c 7.8 10/2021; diabetic management per pharmacy (7) Hypothyroidism: -Continue levothyroxine (8) Pulmonary arterial hypertension: - Appears euvolemic, hold furosemide (9) Hypertension- - BP lower now that he is on dialysis. Home amlodipine discontinued. Still on Toprol and clonidine. Consider weaning off Clonidine 10) Peripheral artery disease LLE- LLE arterial duplex with hemodynamically significant stenosis of distal ant tibial artery and dorsalis pedis artery; Seen by vascular surgery- no intervention needed New left wrist fluid collection, resolving -May be related to lab draw on that side (evidence of venous puncture on his hand/wrist). will elevate wrist, apply ice Q shift. -will place left arm on limb alert (to save for future dialysis site) DVT prophylaxis: Eliquis Dispo: Patient is stable for SNF placement. Admission and Anticipated Discharge Date Admission Date: November 12, 2021 Subjective Overnight with urinary retention requiring straight cath (this is first time he "voided" since being here) Afebrile Physical Exam Physical Exam: Morbidly obese, appears unkempt, non toxic Respiratory: breathing comfortably, no acute distress Cardiovascular: regular rate and rhythm, no murmurs/rubs/gallops Chest (Breasts): Additional Comments: right permacath is clean/dry/intact Musculoskeletal: left AKA, stump with sia and sutures--> wound is well approximated but left lateral with some serous drainage, wound does appear dusky Results & Data Results & Data ([facility]) Vital Signs (Past 12 Hours) Vital Signs Temp Pulse Pulse Resp BP BP BP 11/26/21 15:32 37.0 C 80 19 146/73 H 11/26/21 12:44 36.8 C 73 20 151/74 H 11/26/21 12:41 36.9 C 59 L 130/65 11/26/21 12:15 59 L 130/65 11/26/21 11:45 74 138/78 11/26/21 11:15 71 136/82 11/26/21 10:45 68 123/75 11/26/21 10:15 62 122/72 11/26/21 09:45 63 112/68 11/26/21 09:15 69 89/67 L 11/26/21 09:09 36.9 C 60 11/26/21 08:28 37.0 C 70 19 119/75 11/26/21 07:55 61 18 125/62 11/26/21 07:40 60 18 134/58 L 11/26/21 07:14 37.5 C 77 18 115/71 Pulse Ox 11/26/21 15:32 94 11/26/21 12:44 93 11/26/21 12:41 11/26/21 12:15 11/26/21 11:45 11/26/21 11:15 11/26/21 10:45 11/26/21 10:15 11/26/21 09:45 11/26/21 09:15 11/26/21 09:09 11/26/21 08:28 98 11/26/21 07:55 99 11/26/21 07:40 99 11/26/21 07:14 98 Laboratory Results Short CBC 11/26/21 Range/Units 04:41 WBC 7.74 (4.8-10.8) K/uL Hgb 8.7 L (14.0-18.0) g/dL Hct 29.2 L (42-52) % Plt Count 186 (130-400) K/uL BMP 11/26/21 04:41 Sodium 138 Potassium 4.1 Chloride 100 Carbon Dioxide 24 BUN 48 H Creatinine 7.49 H* D Glucose 112 H Calcium 8.0 L Liver Function 11/26/21 Range/Units 04:41 Albumin 2.7 L (3.4-5.0) gm/dl Urine 11/26/21 Range/Units 04:10 Urine Color Dark Yellow Urine Appearance Cloudy A (Clear) Urine pH 5.0 (4.5-7.5) Ur Specific Gamaliel 1.018 (1.000-1.030) Urine Protein 2+ H (Negative) Urine Glucose (UA) Negative (Negative) Medications Administered Current Inpatient Medications Acetaminophen (Acetaminophen 325 Mg Tab) 650 mg PO Q4H PRN PRN Reason: Pain or Fever Stop: 12/12/21 14:38 Last Admin: 11/24/21 23:41 Dose: 650 mg Documented by: Allopurinol (Allopurinol 100 Mg Tab) 50 mg PO DAILY [facility] Stop: 12/13/21 08:59 Last Admin: 11/26/21 08:43 Dose: 50 mg Documented by: Amiodarone HCl (Amiodarone 200 Mg Tab) 400 mg PO BIDM [facility] Stop: 12/20/21 10:29 Last Admin: 11/26/21 13:26 Dose: 400 mg Documented by: Apixaban (Apixaban 5 Mg Tablet) 5 mg PO BID [facility] Stop: 12/22/21 20:59 Last Admin: 11/26/21 09:00 Dose: 5 mg Documented by: Aspirin (Aspirin 81 Mg Ectab) 81 mg PO DAILY [facility] Stop: 12/13/21 08:59 Last Admin: 11/26/21 08:59 Dose: 81 mg Documented by: Atorvastatin Calcium (Atorvastatin 40 Mg Tab) 40 mg PO DAILY [facility] Stop: 12/13/21 08:59 Last Admin: 11/26/21 08:43 Dose: 40 mg Documented by: Bisacodyl (Bisacodyl 10 Mg Supp) 10 mg NC DAILY PRN PRN Reason: Constipation Stop: 12/16/21 19:47 Brimonidine Tartrate (Brimonidine Tartrate-P 0.15% 5 Ml Btl) 1 drops OPB BID [facility] Stop: 12/12/21 20:59 Last Admin: 11/26/21 08:39 Dose: 1 drops Documented by: Calcitriol (Calcitriol 0.25 Mcg Capsule) 0.5 mcg PO BID [facility] Stop: 12/12/21 20:59 Last Admin: 11/26/21 08:42 Dose: 0.5 mcg Documented by: Clonidine HCl (Clonidine Hcl 0.1 Mg Tab) 0.1 mg PO BID [facility] Stop: 12/12/21 20:59 Last Admin: 11/26/21 13:29 Dose: 0.1 mg Documented by: Cyanocobalamin (Cyanocobalamin (B-12) 100 Mcg Tablet) 100 mcg PO QAM [facility] Stop: 11/27/21 09:01 Last Admin: 11/26/21 08:42 Dose: 100 mcg Documented by: Dextrose (Dextrose 50% 50 Ml Syringe) 25 - 50 ml IV UD PRN; Protocol PRN Reason: Hypoglycemia Protocol Stop: 12/12/21 17:14 Diphenhydramine HCl (Diphenhydramine Capsule 25 Mg Cap) 25 mg PO Q8H PRN PRN Reason: Itching Stop: 12/16/21 19:47 Docusate Sodium (Docusate Sodium 100 Mg Cap) 100 mg PO BID [facility] Stop: 12/16/21 20:59 Last Admin: 11/26/21 08:39 Dose: Not Given Documented by: Ferrous Sulfate (Ferrous Sulfate 325 Mg Tab) 325 mg PO BIDM [facility] Stop: 12/24/21 16:59 Last Admin: 11/26/21 16:33 Dose: 325 mg Documented by: Folic Acid (Folic Acid 1 Mg Tab) 1 mg PO QAM [facility] Stop: 12/12/21 09:01 Last Admin: 11/26/21 08:40 Dose: 1 mg Documented by: Gabapentin (Gabapentin 100 Mg Cap) 200 mg PO DAILY [facility] Stop: 12/25/21 11:14 Last Admin: 11/25/21 11:52 Dose: 200 mg Documented by: Glucagon (Glucagon For Inj 1 Mg Vial) 1 mg IM UD PRN; Protocol PRN Reason: Hypoglycemia Protocol Stop: 12/12/21 17:14 Glucose (Glucose 40% Gel 15 Gm Tube) 15 - 30 gm PO UD PRN; Protocol PRN Reason: Hypoglycemia Protocol Stop: 12/12/21 17:14 Glucose (Glucose 10 Tabs/Tube) 4 - 8 tabs PO UD PRN; Protocol PRN Reason: Hypoglycemia Protocol Stop: 12/12/21 17:14 Hydromorphone HCl (Hydromorphone Inj 1 Mg/Ml Syringe) 1 mg IV Q4H PRN PRN Reason: Pain Stop: 12/09/21 00:02 Last Admin: 11/25/21 08:06 Dose: 1 mg Documented by: Cefepime HCl 1,000 mg/ Syringe 11.3 mls @ 5.5 mls/min IV DAILY@1600 [facility]; Protocol Stop: 01/02/22 15:59 Last Admin: 11/26/21 16:31 Dose: 5.5 mls/min Documented by: Insulin Aspart (Insulin Aspart Per Unit) 0 units SC ACHS [facility]; Protocol Stop: 12/12/21 17:29 Last Admin: 11/26/21 16:31 Dose: Not Given Documented by: Insulin Glargine (Insulin Glargine Solostar 100 Units/Ml 3 Ml Pen) 0 units SC BID [facility]; Protocol Stop: 12/23/21 20:59 Last Admin: 11/25/21 21:29 Dose: 7 units Documented by: Latanoprost (Latanoprost 0.005% Op Soln 2.5 Ml Btl) 1 drops OP HS [facility] Stop: 12/12/21 20:59 Last Admin: 11/25/21 20:17 Dose: 1 drops Documented by: Levothyroxine Sodium (Levothyroxine Sodium 50 Mcg Tablet) 50 mcg PO DAILYBB [facility] Stop: 12/13/21 06:29 Last Admin: 11/26/21 06:16 Dose: 50 mcg Documented by: Magnesium Hydroxide (Magnesium Hydroxide Susp 30 Ml Udc) 30 ml PO Q6H PRN PRN Reason: Constipation Stop: 12/16/21 19:47 Metoclopramide HCl (Metoclopramide Hcl Inj 5 Mg/Ml 2 Ml Vial) 10 mg IV Q6H PRN PRN Reason: Nausea And Vomiting Stop: 12/16/21 19:47 Last Admin: 11/26/21 12:51 Dose: 10 mg Documented by: Metoprolol Succinate (Metoprolol Succ 50mg Ext Rel Tab) 100 mg PO QAM [facility] Stop: 12/13/21 08:59 Last Admin: 11/26/21 13:26 Dose: 100 mg Documented by: Metoprolol Tartrate (Metoprolol Tartrate 1 Mg/Ml Vial) 5 mg IV Q4 PRN; Protocol PRN Reason: for sustained HR>120 Stop: 12/15/21 11:59 Miscellaneous (Carbohydrates For Hypoglycemia ) 15 - 30 gm PO UD PRN PRN Reason: Hypoglycemia Treatment Stop: 12/12/21 17:14 Miscellaneous Information (Pharmacy Glycemic Mgmt Consult) 1 ea N/A UD PRN PRN Reason: Consult Stop: 12/12/21 16:54 Multivitamins (Multivitamin Tab) 1 tab PO QAM [facility] Stop: 12/17/21 08:59 Last Admin: 11/26/21 08:40 Dose: 1 tab Documented by: Naloxone HCl (Naloxone Hcl 0.4 Mg/1 Ml Vial/Carp) 0.1 mg IV Q5M PRN PRN Reason: Oversedation/Resp Depression Stop: 12/16/21 19:47 Ondansetron HCl (Ondansetron Inj 2 Mg/Ml 2 Ml Vial) 4 mg IV Q6H PRN PRN Reason: Nausea And Vomiting Stop: 12/16/21 19:47 Last Admin: 11/26/21 09:46 Dose: 4 mg Documented by: Oxycodone/Acetaminophen (Oxycodone/Acetaminophen 5mg/325mg Tab) 1 - 2 tab PO Q4H PRN PRN Reason: Moderate Pain Stop: 11/28/21 12:41 Last Admin: 11/26/21 04:47 Dose: 1 tab Documented by: Sennosides (Senna 8.6 Mg Tab) 17.2 mg PO HS [facility] Stop: 12/16/21 20:59 Last Admin: 11/25/21 20:20 Dose: Not Given Documented by: Tamsulosin HCl (Tamsulosin Hcl 0.4 Mg Cap) 0.4 mg PO QAM [facility] Stop: 12/26/21 08:59 Last Admin: 11/26/21 13:27 Dose: 0.4 mg Documented by: (1) Osteomyelitis Laterality: unspecified laterality Osteomyelitis location: foot Osteomyelitis type: unspecified type Qualified Code(s): M86.9 - Osteomyelitis, unspecified
[2021-11-26] MEDS: CEFEPIME 1,000 MG in SYRINGE 0 ML IV SCH (16:31)
[2021-11-26] MEDS: SENNA 8.6 MG TAB PO SCH (20:58)
[2021-11-26] MEDS: LATANOPROST 0.005% OP SOLN 2.5 ML BTL OP SCH (21:04)
[2021-11-26] MEDS: INSULIN GLARGINE SOLOSTAR 100 UNITS/ML 3 ML PEN SC SCH (21:04)
[2021-11-27] MEDS ORDERED: MELATONIN 3 MG TAB PO PRN (01:42)
[2021-11-27] MEDS: oxyCODONE/ACETAMINOPHEN 5mg/325mg TAB PO PRN ×3 (04:37→22:39)
[2021-11-27] MEDS: LEVOTHYROXINE SODIUM 50 MCG TABLET PO SCH (06:03)
--- NOTE | 2021-11-27 06:25 | Electrocardiogram Report ---
Test Reason : Blood Pressure : / mmHG Vent. Rate : 060 BPM Atrial Rate : 060 BPM P-R Int : 186 ms QRS Dur : 090 ms QT Int : 442 ms P-R-T Axes : 056 -18 060 degrees QTc Int : 442 ms Normal sinus rhythm Nonspecific ST abnormality When compared with ECG of 15-NOV-2021 08:51, Sinus rhythm has replaced Atrial fibrillation Vent. rate has decreased BY 65 BPM Confirmed by Daniel Galvez ([id number]) on 11/27/2021 6:25:03 AM Referred By: Pedro Jon Confirmed By:Daniel Galvez
[2021-11-27] MEDS: CALCITRIOL 0.25 MCG CAPSULE PO SCH ×2 (08:22→21:26)
[2021-11-27] MEDS: METOPROLOL SUCC 50MG EXT REL TAB PO SCH (08:23)
[2021-11-27] MEDS: ASPIRIN 81 MG ECTAB PO SCH (08:23)
[2021-11-27] MEDS: TAMSULOSIN HCL 0.4 MG CAP PO SCH (08:23)
[2021-11-27] MEDS: FERROUS SULFATE 325 MG TAB PO SCH ×2 (08:23→16:31)
[2021-11-27] MEDS: MULTIVITAMIN TAB PO SCH (08:24)
[2021-11-27] MEDS: AMIODARONE 200 MG TAB PO SCH ×2 (08:24→16:32)
[2021-11-27] MEDS: FOLIC ACID 1 MG TAB PO SCH (08:24)
[2021-11-27] MEDS: APIXABAN 5 MG TABLET PO SCH ×2 (08:24→21:26)
[2021-11-27] MEDS: allopurinoL 100 MG TAB PO SCH (08:25)
[2021-11-27] MEDS: CYANOCOBALAMIN (B-12) 100 MCG TABLET PO SCH (08:25)
[2021-11-27] MEDS: ATORVASTATIN 40 MG TAB PO SCH (08:28)
[2021-11-27] MEDS: BRIMONIDINE TARTRATE-P 0.15% 5 ML BTL OPB SCH ×2 (08:28→21:25)
[2021-11-27] MEDS: INSULIN GLARGINE SOLOSTAR 100 UNITS/ML 3 ML PEN SC SCH ×2 (08:30→21:24)
[2021-11-27] MEDS: INSULIN ASPART PER UNIT SC SCH ×4 (08:36→20:39)
[2021-11-27] MEDS: DOCUSATE SODIUM 100 MG CAP PO SCH ×2 (08:37→21:23)
--- NOTE | 2021-11-27 09:39 | Communication Note ---
Date of Service: November 27, 2021 Wound check per request of hospitalist service. Dressings removed. Staple/suture line intact. Mild serous/bloody drainage noted more so over the lateral aspect of the incision. Mild eschar noted developing over the medial aspect of the incision. No purulent drainage noted. Wound redressed.
--- NOTE | 2021-11-27 09:39 | Nephrology Progress Note ---
Date of Service November 27, 2021 Assessment & Plan (1) ESRD (end stage renal disease): Plan: Attributed to [facility]. Started HD 11/15/21 via [facility]. Completed HD yesterday with adequate clearance and UF 1 L. Tolerating HD well. TDC functioning well with adequate Qb during treatment. Medications appropriately dosed for IHD. Renal diet. Next HD planned for tomorrow. (2) Anemia: Plan: Epogen 63434 units provided 11/23/21. Oral FeSO4 BID for CANDELARIO. Monitor H/H weekly. (3) Secondary hyperparathyroidism of renal origin: Plan: Remains on calcitriol 0.5 mg/dL BID. (4) Urinary retention: Plan: Flomax started yesterday. Document I/O's and bladder scan q shift PRN. Document PVR. Admission and Anticipated Discharge Date Admission Date: November 12, 2021 Subjective No acute events overnight. Completed HD yesterday without complications. [place] tolerated cardioversion well. He denied any complaints this AM. He is hopeful to be discharged to rehab soon. He denies pain. No chest discomfort or palpitations. Breathing comfortably. States that he did void some urine this morning. He denies any sensation of urinary retention or urge to void at this time. Review of Systems Review of Systems: All systems reviewed & are unremarkable except as noted in HPI & below Physical Exam Constitutional: well developed; no acute distress Eyes: + anicteric sclerae; no corneal abnormality ENMT: Mouth: no oral mucosal abnormality and oral mucous membranes not dry Neck: normal visual inspection and trachea midline Respiratory: normal respiratory effort Auscultation: lungs clear to auscultation bilaterally Cardiovascular: Rate/Rhythm: regular rate Heart Sounds: normal S1 and normal S2 Extremities: no edema Musculoskeletal: Extremities: no cyanosis and no clubbing Skin: normal turgor; no lesions Neurologic: Motor/Sensory: no tremor and no asterixis Psychiatric: Orientation: alert and oriented x 3 Results & Data ([facility]) Vital Signs (Past 12 Hours) Vital Signs Temp Pulse Pulse Resp BP Pulse Ox 11/27/21 07:21 36.7 C 61 19 123/69 96 11/27/21 03:31 36.7 C 62 20 121/62 98 11/27/21 00:12 75 11/26/21 23:08 37.1 C 67 18 144/73 H 96 Laboratory Results Laboratory Results - last 24 hr 11/26/21 11/26/21 11/26/21 12:42 16:06 20:25 POC Glucose 95 95 118 H 11/27/21 07:23 POC Glucose 113 H PG Care Time/CCT Total # of Minutes Spent Total Time Spent with Patient: Total time spent is greater than 50% in coordination of care (as documented) at patient's floor/unit and/or counseling patient: Coding Level of Care Code 93796 Subseq Hosp Care Lvl 3 Diagnoses ESRD (end stage renal disease) N18.6 Anemia N18.6; D63.1; Z99.2 Anemia type: due to chronic kidney disease Chronic kidney disease stage: on chronic dialysis Secondary hyperparathyroidism of renal origin N25.81 Urinary retention R33.9 (1) Anemia Anemia type: due to chronic kidney disease Chronic kidney disease stage: on chronic dialysis Qualified Code(s): N18.6 - End stage renal disease; D63.1 - Anemia in chronic kidney disease; Z99.2 - Dependence on renal dialysis
[2021-11-27] MEDS: cloNIDine HCL 0.1 MG TAB PO SCH ×2 (10:34→21:28)
--- NOTE | 2021-11-27 14:07 | Hospitalist Progress Note ---
Date of Service November 27, 2021 Assessment & Plan (1) Osteomyelitis: Plan: 71 yo M w/ PMH of CKD stage IV, uncontrolled diabetes mellitus with peripheral neuropathy, hypertension, SUKHWINDER, and HLD presented 11/12 to our ED at referral of PCP for evaluation of SOB. Patient main concern was shortness of breath which was present for 5 days prior to admission however he was not aware of his left foot infection complicated with necrotic tissue. Pt does have peripheral neuro sabina and states no sensation below his knees. 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 - Patient has remained afebrile, hemodynamically stable since admission. on admission, exam with necrotic tissue involving the left fourth and fifth toe and plantar surface of the left foot. - LLE Doppler negative for DVT - LLE arterial duplex positive for hemodynamically significant stenosis in the distal anterior tibial artery and dorsalis pedis artery. - MRI foot and ankle 11/13 shows soft tissues ulcer of lateral forefoot with cellulitis with OM of fifth metatarsal head and phalanges with soft tissue gas of forefoot ?secondary to direct extension from soft tissue ulcer vs necrotizing fascitis; tenosynovitis of extensor digitorum - s/p left BKA 11/16 by ortho-OR culture from 11/16 with Citrobacter. Discussed with ID Dr. Jansen 11/19. Okay to discontinue vanc and continue cefepime only (1gm IV daily) Cipro is not a good option given his ESRD and Afib being on amio. Prior blood clx with diphtheroids- Blood culture 11/20 negative to date Plan for 2 weeks antibiotics. (until 12/03). Depending on timing of discharge to facility, he may be able to leave with a peripheral IV versus an ultrasound guided one -Stump pain: continue oxycodone, gabapentin held overnight for confusion -stump evaluated by ortho again today and appeared stable. Follow up with ortho after discharge (2) Atrial fibrillation with RVR, new onset - since 11/15/21, still in rate controlled Afib, asymptomatic. TTE reviewed, no new change. Seen by cardio-transitioned to PO amiodarone. Heparin drip held briefly due to bleeding at stump and permacath site in post op period Bleeding resolved, H/H remains stable. Cleared by Vascular surgery and ortho to resume heparin drip--resumed 11/20. -transitioned to Eliquis 5mg BID with no recurrent bleed -s/p CVN 11/26 (3) CKD4 now ESRD - Permacath placed 11/15, had 1st HD 11/15, with subsequent dialysis nephro - Losartan and furosemide on hold. Hold nephrotoxics, ABx dosing per pharmacy based on renal function - abeladro need OP dialysis set up (4) Hypoxia: -CXR and chest clear, stable on 2 L of NC, wean down as tolerated, continue incentive spirometer. S/p 2 U of PRBC transfusion. Anemia and deconditioning kenji brandon contributing. Avoid aggressive IVF given his ESRD. (5) Anemia of CKD: -Hgb 7.5 on presentation (baseline ~ 10.0) and s/p 2 U of PRBC, now Hb >8. Aranesp therapy per nephro. -No further bleeding noted here (6) Diabetes mellitus, type 2: -Hgb A1c 7.8 10/2021; diabetic management per pharmacy. He is requiring much less insulin here than his baseline--> would recommend he be discharged on: Lantus 6 units BID, Novolog 3 units TID-AC (7) Hypothyroidism: -Continue levothyroxine (8) Pulmonary arterial hypertension: - fluid status being managed primarily by dialysis. Lasix discontinued (9) Hypertension- - BP lower now that he is on dialysis. Home amlodipine discontinued. Still on Toprol and clonidine. Consider weaning off Clonidine 10) Peripheral artery disease LLE- LLE arterial duplex with hemodynamically significant stenosis of distal ant tibial artery and dorsalis pedis artery; Seen by vascular surgery- no intervention needed New left wrist fluid collection, resolving -May be related to lab draw on that side (evidence of venous puncture on his hand/wrist). will elevate wrist, apply ice Q shift. -will place left arm on limb alert (to save for future dialysis site) BPH with urinary retention -patient makes very little urine but noted with urinary retention several night ago (> 1L removed with straight cath), this was accumulation from prior days. CT A/P noted to have moderately sized prostate. Flomax started here DVT prophylaxis: Eliquis Dispo: Patient is stable for placement Admission and Anticipated Discharge Date Admission Date: November 12, 2021 Subjective No events overnight Denies chest pain, shortness of breath nausea/vomiting waiting for placement Physical Exam Physical Exam: Obese, no acute distress, non toxic Respiratory: breathing comfortably, no wheezing/rhonchi/rales Cardiovascular: regular rate and rhythm, no murmurs/rubs/gallops Gastrointestinal (Abdomen): soft, non tender Musculoskeletal: left stump is dressed--dressing is clean/dry/intact Neurologic: awake, alert, spontaneously moving extremities Results & Data Results & Data ([facility]) Vital Signs (Past 12 Hours) Vital Signs Temp Pulse Resp BP Pulse Ox 11/27/21 11:52 37.1 C 62 21 119/66 98 11/27/21 07:21 36.7 C 61 19 123/69 96 11/27/21 03:31 36.7 C 62 20 121/62 98 Medications Administered Current Inpatient Medications Acetaminophen (Acetaminophen 325 Mg Tab) 650 mg PO Q4H PRN PRN Reason: Pain or Fever Stop: 12/12/21 14:38 Last Admin: 11/24/21 23:41 Dose: 650 mg Documented by: Allopurinol (Allopurinol 100 Mg Tab) 50 mg PO DAILY [facility] Stop: 12/13/21 08:59 Last Admin: 11/27/21 08:25 Dose: 50 mg Documented by: Amiodarone HCl (Amiodarone 200 Mg Tab) 400 mg PO BIDM [facility] Stop: 12/20/21 10:29 Last Admin: 11/27/21 08:24 Dose: 400 mg Documented by: Apixaban (Apixaban 5 Mg Tablet) 5 mg PO BID [facility] Stop: 12/22/21 20:59 Last Admin: 11/27/21 08:24 Dose: 5 mg Documented by: Aspirin (Aspirin 81 Mg Ectab) 81 mg PO DAILY [facility] Stop: 12/13/21 08:59 Last Admin: 11/27/21 08:23 Dose: 81 mg Documented by: Atorvastatin Calcium (Atorvastatin 40 Mg Tab) 40 mg PO DAILY [facility] Stop: 12/13/21 08:59 Last Admin: 11/27/21 08:28 Dose: 40 mg Documented by: Bisacodyl (Bisacodyl 10 Mg Supp) 10 mg [place] DAILY PRN PRN Reason: Constipation Stop: 12/16/21 19:47 Brimonidine Tartrate (Brimonidine Tartrate-P 0.15% 5 Ml Btl) 1 drops OPB BID BERTHA Stop: 12/12/21 20:59 Last Admin: 11/27/21 08:28 Dose: 1 drops Documented by: Calcitriol (Calcitriol 0.25 Mcg Capsule) 0.5 mcg PO BID BERTHA Stop: 12/12/21 20:59 Last Admin: 11/27/21 08:22 Dose: 0.5 mcg Documented by: Clonidine HCl (Clonidine Hcl 0.1 Mg Tab) 0.1 mg PO BID BERTHA Stop: 12/12/21 20:59 Last Admin: 11/27/21 10:34 Dose: 0.1 mg Documented by: Dextrose (Dextrose 50% 50 Ml Syringe) 25 - 50 ml IV UD PRN; Protocol PRN Reason: Hypoglycemia Protocol Stop: 12/12/21 17:14 Diphenhydramine HCl (Diphenhydramine Capsule 25 Mg Cap) 25 mg PO Q8H PRN PRN Reason: Itching Stop: 12/16/21 19:47 Docusate Sodium (Docusate Sodium 100 Mg Cap) 100 mg PO BID BERTHA Stop: 12/16/21 20:59 Last Admin: 11/27/21 08:37 Dose: Not Given Documented by: Ferrous Sulfate (Ferrous Sulfate 325 Mg Tab) 325 mg PO BIDM [facility] Stop: 12/24/21 16:59 Last Admin: 11/27/21 08:23 Dose: 325 mg Documented by: Folic Acid (Folic Acid 1 Mg Tab) 1 mg PO QAM [facility] Stop: 12/12/21 09:01 Last Admin: 11/27/21 08:24 Dose: 1 mg Documented by: Gabapentin (Gabapentin 100 Mg Cap) 200 mg PO DAILY [facility] Stop: 12/25/21 11:14 Last Admin: 11/25/21 11:52 Dose: 200 mg Documented by: Glucagon (Glucagon For Inj 1 Mg Vial) 1 mg IM UD PRN; Protocol PRN Reason: Hypoglycemia Protocol Stop: 12/12/21 17:14 Glucose (Glucose 40% Gel 15 Gm Tube) 15 - 30 gm PO UD PRN; Protocol PRN Reason: Hypoglycemia Protocol Stop: 12/12/21 17:14 Glucose (Glucose 10 Tabs/Tube) 4 - 8 tabs PO UD PRN; Protocol PRN Reason: Hypoglycemia Protocol Stop: 12/12/21 17:14 Hydromorphone HCl (Hydromorphone Inj 1 Mg/Ml Syringe) 1 mg IV Q4H PRN PRN Reason: Pain Stop: 12/09/21 00:02 Last Admin: 11/25/21 08:06 Dose: 1 mg Documented by: Cefepime HCl 1,000 mg/ Syringe 11.3 mls @ 5.5 mls/min IV DAILY@1600 [facility]; Protocol Stop: 01/02/22 15:59 Last Admin: 11/26/21 16:31 Dose: 5.5 mls/min Documented by: Insulin Aspart (Insulin Aspart Per Unit) 0 units SC ACHS [facility]; Protocol Stop: 12/12/21 17:29 Last Admin: 11/27/21 12:49 Dose: 6 units Documented by: Insulin Glargine (Insulin Glargine Solostar 100 Units/Ml 3 Ml Pen) 0 units SC BID [facility]; Protocol Stop: 12/23/21 20:59 Last Admin: 11/27/21 08:30 Dose: 5 units Documented by: Latanoprost (Latanoprost 0.005% Op Soln 2.5 Ml Btl) 1 drops OP HS [facility] Stop: 12/12/21 20:59 Last Admin: 11/26/21 21:04 Dose: 1 drops Documented by: Levothyroxine Sodium (Levothyroxine Sodium 50 Mcg Tablet) 50 mcg PO DAILYBB [facility] Stop: 12/13/21 06:29 Last Admin: 11/27/21 06:03 Dose: 50 mcg Documented by: Magnesium Hydroxide (Magnesium Hydroxide Susp 30 Ml Udc) 30 ml PO Q6H PRN PRN Reason: Constipation Stop: 12/16/21 19:47 Melatonin (Melatonin 3 Mg Tab) 3 mg PO HS PRN PRN Reason: Sleep Stop: 12/27/21 01:41 Last Admin: 11/27/21 02:00 Dose: 3 mg Documented by: Metoclopramide HCl (Metoclopramide Hcl Inj 5 Mg/Ml 2 Ml Vial) 10 mg IV Q6H PRN PRN Reason: Nausea And Vomiting Stop: 12/16/21 19:47 Last Admin: 11/26/21 12:51 Dose: 10 mg Documented by: Metoprolol Succinate (Metoprolol Succ 50mg Ext Rel Tab) [facility] Stop: 12/13/21 08:59 Last Admin: 11/27/21 08:23 Dose: 100 mg Documented by: Metoprolol Tartrate (Metoprolol Tartrate 1 Mg/Ml Vial) 5 mg IV Q4 PRN; Protocol PRN Reason: for sustained HR>120 Stop: 12/15/21 11:59 Miscellaneous (Carbohydrates For Hypoglycemia ) 15 - 30 gm PO UD PRN PRN Reason: Hypoglycemia Treatment Stop: 12/12/21 17:14 Miscellaneous Information (Pharmacy Glycemic Mgmt Consult) 1 ea N/A UD PRN PRN Reason: Consult Stop: 12/12/21 16:54 Multivitamins (Multivitamin Tab) 1 tab PO [facility] Stop: 12/17/21 08:59 Last Admin: 11/27/21 08:24 Dose: 1 tab Documented by: Naloxone HCl (Naloxone Hcl 0.4 Mg/1 Ml Vial/Carp) 0.1 mg IV Q5M PRN PRN Reason: Oversedation/Resp Depression Stop: 12/16/21 19:47 Ondansetron HCl (Ondansetron Inj 2 Mg/Ml 2 Ml Vial) 4 mg IV Q6H PRN PRN Reason: Nausea And Vomiting Stop: 12/16/21 19:47 Last Admin: 11/26/21 09:46 Dose: 4 mg Documented by: Oxycodone/Acetaminophen (Oxycodone/Acetaminophen 5mg/325mg Tab) 1 - 2 tab PO Q4H PRN PRN Reason: Moderate Pain Stop: 11/28/21 12:41 Last Admin: 11/27/21 04:37 Dose: 2 tab Documented by: Sennosides (Senna 8.6 Mg Tab) 17.2 mg PO [facility] Stop: 12/16/21 20:59 Last Admin: 11/26/21 20:58 Dose: Not Given Documented by: Tamsulosin HCl (Tamsulosin Hcl 0.4 Mg Cap) 0.4 mg PO [facility] Stop: 12/26/21 08:59 Last Admin: 11/27/21 08:23 Dose: 0.4 mg Documented by: (1) Osteomyelitis Laterality: unspecified laterality Osteomyelitis location: foot Osteomyelitis type: unspecified type Qualified Code(s): M86.9 - Osteomyelitis, unspecified
[2021-11-27] MEDS: CEFEPIME 1,000 MG in SYRINGE 0 ML IV SCH (16:53)
[2021-11-27] MEDS: SENNA 8.6 MG TAB PO SCH (21:23)
[2021-11-27] MEDS: LATANOPROST 0.005% OP SOLN 2.5 ML BTL OP SCH (21:25)
[2021-11-28] MEDS: oxyCODONE/ACETAMINOPHEN 5mg/325mg TAB PO PRN ×2 (03:33→07:45)
[2021-11-28] MEDS: LEVOTHYROXINE SODIUM 50 MCG TABLET PO SCH (05:32)
[2021-11-28 05:52] LABS: Hematocrit (blood only) 26.5 % (42-52)
[2021-11-28 06:56] LABS: Albumin Level 2.6 gm/dl (3.4-5.0); BUN Creatinine Ratio 6.8 (10-20); Creatinine Clr Calc Pharmacy 12.7 ml/min; Est GFR (African American) 8.4 ml/min; Est GFR (Non-African American) 7.2 ml/min; Phosphorus 7.3 mg/dl (2.5-4.9); Potassium 4.2 mmol/L (3.5-5.1)
[2021-11-28] MEDS: ASPIRIN 81 MG ECTAB PO SCH (07:39)
[2021-11-28] MEDS: AMIODARONE 200 MG TAB PO SCH ×2 (07:39→17:23)
[2021-11-28] MEDS: allopurinoL 100 MG TAB PO SCH (07:40)
[2021-11-28] MEDS: ATORVASTATIN 40 MG TAB PO SCH (07:40)
[2021-11-28] MEDS: FERROUS SULFATE 325 MG TAB PO SCH ×2 (07:40→17:23)
[2021-11-28] MEDS: FOLIC ACID 1 MG TAB PO SCH (07:40)
[2021-11-28] MEDS: APIXABAN 5 MG TABLET PO SCH ×2 (07:40→20:53)
[2021-11-28] MEDS: CALCITRIOL 0.25 MCG CAPSULE PO SCH ×2 (07:40→20:18)
[2021-11-28] MEDS: TAMSULOSIN HCL 0.4 MG CAP PO SCH (07:40)
[2021-11-28] MEDS: MULTIVITAMIN TAB PO SCH (07:41)
[2021-11-28] MEDS: METOPROLOL SUCC 50MG EXT REL TAB PO SCH (07:41)
[2021-11-28] MEDS: INSULIN ASPART PER UNIT SC SCH ×4 (07:46→20:20)
--- NOTE | 2021-11-28 08:37 | Pharmacy Report ---
Pharmacy Glycemic Short Note 2 - Date of Service November 28, 2021 - Glycemic Short BSG Results (Last 24 hours): 11/27/21 11/27/21 11/27/21 11:33 16:27 19:57 Glucose POC Glucose 136 H 109 H 156 H 11/28/21 11/28/21 05:27 07:32 Glucose 117 H POC Glucose 109 H OUTPATIENT ANTIDIABETIC REGIMEN: * Lantus 50 units SC PM * HbA1c: 7.8% (11/13/21) ASSESSMENT: 11/28/21 * BSGs remain well-controlled, ranging 109-156 mg/dL over past 24 hours, fasting BSG of 109 mg/dL this morning * Received 24 units of insulin yesterday (12 units of basal and 12 units of prandial/correctional bolus) * Remains on cefepime, HD today * Do not anticipate any changes needed to current insulin regimen 11/26/21 * BSGs well-controlled yesterday, ranging 119-134 mg/dL, fasting BSG of 111 mg/dL this morning * Received 22 units of insulin (14 units of Lantus and 8 units of prandial/correctional Novolog) * NPO after midnight today for cardioversion (now post-op) * Will hold AM Lantus this morning and resume with HS once diet reordered Background: * 71 yo admitted secondary to osteomyelitis. Pharmacy has been consulted to assist with inpatient glycemic management. * Ordered a type 2 diabetic diet. Currently on Daptomycin and Cefepime. SCr at 7.18 mg/dL (patient is ESRD but refuses HD). * Did take 50 units of Lantus evening prior to admission. * Will hold Lantus for now given BSGs. * Start Novolog only. Target BSG of 110-140 mg/dL to help with infection and promote wound healing. PLAN FOR INPATIENT GLYCEMIC CONTROL: * Basal insulin * Lantus 6 units SC BID * Bolus insulin * NovoLog per scale ACHS or Q6hrs while NPO * Goal Range: Low 110 mg/dL - High 140 mg/dL * Correction Factor: 18 mg/dL/unit * Nutritional / Prandial insulin per carb ratio of 1 unit per 12 grams CHO consumed
[2021-11-28] MEDS: INSULIN GLARGINE SOLOSTAR 100 UNITS/ML 3 ML PEN SC SCH ×2 (08:46→20:29)
[2021-11-28] MEDS: BRIMONIDINE TARTRATE-P 0.15% 5 ML BTL OPB SCH ×2 (08:47→20:18)
[2021-11-28] MEDS: DOCUSATE SODIUM 100 MG CAP PO SCH ×2 (08:47→20:33)
--- NOTE | 2021-11-28 09:04 | Nephrology Progress Note ---
Date of Service November 28, 2021 Assessment & Plan (1) ESRD (end stage renal disease): Plan: Attributed to DKD. Started HD 11/15/21 via [facility]. Remains on MWF HD schedule. Orders for HD today entered into the EHR and reviewed with HD nurse. Medications appropriately dosed for IHD. Renal diet. Renal w/ B-complex added. Remains on calcitriol 0.5 mg/dL BID for sPTH. (2) Anemia: Plan: Epogen 40436 units provided 11/23/21. Oral FeSO4 BID for CANDELARIO. Monitor H/H weekly. (3) Hypertension: Plan: Volume status controlled. BP acceptable. (4) Urinary retention: Plan: Flomax started. Document I/O's and bladder scan q shift PRN. Document PVR. (5) S/P BKA (below knee amputation) unilateral: Plan: Anticipate discharge to rehab. Admission and Anticipated Discharge Date Admission Date: November 12, 2021 Subjective No acute events overnight. Quincy is resting comfortably in bed this AM. He feels well and denies any acute complaints. Denies urinary retention or urge to void. Plan for HD reviewed. No chest pain or palpitations. Review of Systems Review of Systems: All systems reviewed & are unremarkable except as noted in HPI & below Physical Exam Constitutional: well developed; no acute distress Eyes: + anicteric sclerae; no corneal abnormality ENMT: Mouth: no oral mucosal abnormality and oral mucous membranes not dry Neck: normal visual inspection and trachea midline Respiratory: normal respiratory effort Auscultation: lungs clear to auscultation bilaterally Cardiovascular: Rate/Rhythm: regular rate Heart Sounds: normal S1 and normal S2 Extremities: no edema Musculoskeletal: Extremities: no cyanosis and no clubbing L BKA Skin: normal turgor; no lesions Neurologic: Motor/Sensory: no tremor and no asterixis Psychiatric: Orientation: alert and oriented x 3 Results & Data ([facility]) Vital Signs (Past 12 Hours) Vital Signs Temp Pulse Resp BP Pulse Ox 11/28/21 08:00 37.0 C 66 18 125/70 97 11/28/21 03:19 36.6 C 60 19 114/66 99 11/27/21 23:08 36.8 C 66 20 96/55 L 91 Laboratory Results Laboratory Results - last 24 hr 11/27/21 11/27/21 11/27/21 11:33 16:27 19:57 Hgb Hct Sodium Potassium Chloride Carbon Dioxide Anion Gap BUN Creatinine Est Cr Clr Drug Dosing Est GFR ( Amer) Est GFR (Non-Af Amer) BUN/Creatinine Ratio Glucose POC Glucose 136 H 109 H 156 H Calcium Phosphorus Albumin 11/28/21 11/28/21 11/28/21 05:27 05:27 07:32 Hgb 8.0 L Hct 26.5 L Sodium 138 Potassium 4.2 Chloride 100 Carbon Dioxide 26 Anion Gap 12 H BUN 48 H Creatinine 7.04 H* Est Cr Clr Drug Dosing 12.7 Est GFR ( Amer) 8.4 Est GFR (Non-Af Amer) 7.2 BUN/Creatinine Ratio 6.8 L Glucose 117 H POC Glucose 109 H Calcium 8.0 L Phosphorus 7.3 H Albumin 2.6 L PG Care Time/CCT Total # of Minutes Spent Total Time Spent with Patient: Total time spent is greater than 50% in coordination of care (as documented) at patient's floor/unit and/or counseling patient: Coding Level of Care Code 43318 Subseq Hosp Care Lvl 3 Diagnoses Urinary retention R33.9 S/P BKA (below knee amputation) unilateral Z89.519 ESRD (end stage renal disease) N18.6 Anemia N18.6; D63.1; Z99.2 Anemia type: due to chronic kidney disease Chronic kidney disease stage: on chronic dialysis Hypertension I10 Hypertension type: essential hypertension (1) Anemia Anemia type: due to chronic kidney disease Chronic kidney disease stage: on chronic dialysis Qualified Code(s): N18.6 - End stage renal disease; D63.1 - Anemia in chronic kidney disease; Z99.2 - Dependence on renal dialysis (2) Hypertension Hypertension type: essential hypertension Qualified Code(s): I10 - Essential (primary) hypertension
[2021-11-28] MEDS: cloNIDine HCL 0.1 MG TAB PO SCH (09:05)
[2021-11-28] MEDS: HYDROmorphone INJ 1 MG/ML SYRINGE IV PRN ×2 (14:15→23:49)
--- NOTE | 2021-11-28 16:11 | Hospitalist Progress Note ---
Date of Service November 28, 2021 Assessment & Plan (1) Osteomyelitis: Plan: per Dr. Tucker's notes with addendum: 71 yo M w/ PMH of CKD stage IV, uncontrolled diabetes mellitus with peripheral neuropathy, hypertension, SUKHWINDER, and HLD presented 11/12 to our ED at referral of PCP for evaluation of SOB. Patient main concern was shortness of breath which was present for 5 days prior to admission however he was not aware of his left foot infection complicated with necrotic tissue. Pt does have peripheral neuropathy and states no sensation below his knees. 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 - Patient has remained afebrile, hemodynamically stable since admission. on admission, exam with necrotic tissue involving the left fourth and fifth toe and plantar surface of the left foot. - LLE Doppler negative for DVT - LLE arterial duplex positive for hemodynamically significant stenosis in the distal anterior tibial artery and dorsalis pedis artery. - MRI foot and ankle 11/13 shows soft tissues ulcer of lateral forefoot with cellulitis with OM of fifth metatarsal head and phalanges with soft tissue gas of forefoot ?secondary to direct extension from soft tissue ulcer vs necrotizing fascitis; tenosynovitis of extensor digitorum - s/p left BKA 11/16 by ortho-OR culture from 11/16 with Citrobacter. Discussed with ID Dr. Jansen 11/19. Okay to discontinue vanc and continue cefepime only (1gm IV daily) Cipro is not a good option given his ESRD and Afib being on amio. Prior blood clx with diphtheroids- Blood culture 11/20 negative to date Plan for 2 weeks antibiotics. (until 12/03). Depending on timing of discharge to facility, he may be able to leave with a peripheral IV versus an ultrasound guided one -Stump pain: continue oxycodone, gabapentin held overnight for confusion -stump evaluated by ortho again today and appeared stable. Follow up with ortho after discharge 11/28 BP on the lower side during HD monitor continue IV Cefepime possible dc to Rehab tomorrow (2) Atrial fibrillation with RVR, new onset - since 11/15/21, still in rate controlled Afib, asymptomatic. TTE reviewed, no new change. Seen by cardio-transitioned to PO amiodarone. Heparin drip held briefly due to bleeding at stump and permacath site in post op period Bleeding resolved, H/H remains stable. Cleared by Vascular surgery and ortho to resume heparin drip--resumed 11/20. -transitioned to Eliquis 5mg BID with no recurrent bleed -s/p CVN 11/26 11/28 HR controlled (3) CKD4 now ESRD - Permacath placed 11/15, had 1st HD 11/15, with subsequent dialysis nephro - Losartan and furosemide on hold. Hold nephrotoxics, ABx dosing per pharmacy based on renal function - abelardo need OP dialysis set up 11/28 tired after HD monitor (4) Hypoxia: -CXR and chest clear, stable on 2 L of NC, wean down as tolerated, continue incentive spirometer. S/p 2 U of PRBC transfusion. Anemia and deconditioning likely contributing. - continue to wean off from O2 (5) Anemia of CKD: -Hgb 7.5 on presentation (baseline ~ 10.0) and s/p 2 U of PRBC, now Hb >8. Aranesp therapy per nephro. -No further bleeding noted here - Hg 8.0 monitor (6) Diabetes mellitus, type 2: -Hgb A1c 7.8 10/2021; diabetic management per pharmacy. He is requiring much less insulin here than his baseline--> would recommend he be discharged on: Lantus 6 units BID, Novolog 3 units TID-AC (7) Hypothyroidism: -Continue levothyroxine (8) Pulmonary arterial hypertension: - fluid status being managed primarily by dialysis. Lasix discontinued (9) Hypertension- - BP lower now that he is on dialysis. Home amlodipine discontinued. Still on Toprol and clonidine. Consider weaning off Clonidine - change Clonidine to daily 10) Peripheral artery disease LLE- LLE arterial duplex with hemodynamically significant stenosis of distal ant tibial artery and dorsalis pedis artery; Seen by vascular surgery- no intervention needed New left wrist fluid collection, resolving -May be related to lab draw on that side (evidence of venous puncture on his hand/wrist). will elevate wrist, apply ice Q shift. -will place left arm on limb alert (to save for future dialysis site) - improving BPH with urinary retention -patient makes very little urine but noted with urinary retention several night ago (> 1L removed with straight cath), this was accumulation from prior days. CT A/P noted to have moderately sized prostate. Flomax started here DVT prophylaxis: Shaka Dispo: transition to Acute Rehab when medically stable Admission and Anticipated Discharge Date Admission Date: November 12, 2021 Subjective ff up for L foot OM, etc seen resting in bed, not in distress comfortable states he feels tired today left stump discomfort relieved by medications no chest pain, dyspnea, palpitations, dizziness no other symptoms Review of Systems Review of Systems: all noted and negative except for above Physical Exam Physical Exam: General- oriented x 3, not in distress, speaks in sentences with no effort or accessory muscle use Eyes- anicteric Neck- no JVD Lungs- clear BS BL no rales/wheezing Heart- normal rate, regular rhythm; no murmurs Abdomen- normal bowel sounds, nondistended, soft, nontender Extremities-RLE: no pretibial edema, no calf tenderness Left stump: dressing in place, no bleeding or discharge Neuro- alert, oriented x 3; no gross focal neurologic deficits Skin- warm & dry Results & Data Results & Data ([facility]) Vital Signs (Past 12 Hours) Vital Signs Temp Pulse Pulse Resp BP BP Pulse Ox 11/28/21 13:35 36.7 C 56 L 110/61 11/28/21 13:00 88 108/57 L 11/28/21 12:30 58 L 99/57 L 11/28/21 12:00 63 99/45 L 11/28/21 11:30 62 82/43 L 11/28/21 11:00 62 92/51 L 11/28/21 10:30 60 100/58 L 11/28/21 10:03 36.6 C 62 11/28/21 09:00 60 11/28/21 08:00 37.0 C 66 18 125/70 97 all noted and reviewed including below (1) Osteomyelitis Laterality: unspecified laterality Osteomyelitis location: foot Osteomyelitis type: unspecified type Qualified Code(s): M86.9 - Osteomyelitis, unspecified
[2021-11-28] MEDS: CEFEPIME 1,000 MG in SYRINGE 0 ML IV SCH (16:23)
--- NOTE | 2021-11-28 17:43 | Cardiology Progress Note ---
Date of Service November 28, 2021 Assessment & Plan (1) Atrial fibrillation with rapid ventricular response: (2) Hypotension: (3) Dyspnea on exertion: (4) Anemia: (5) Dyslipidemia: (6) Anticoagulant long-term use: Plan: ASSESSMENT/PLAN: 1. AFib with RVR:He has remained in sinus rhythm since cardioversion. He remains on oral him on 400 mg twice a day. I think he has been on that dose long enough that we should reduce it to 200 mg twice a day. I am to draw liver function tests since it has been a week since we did that. 2. Hypotension: BP has been low at times, he is on metoprolol 100 mg daily and HR has not dropped following cardioversion. We could decrease beta blockade somewhat, however in atrial fibrillation he may have a rapid heart rate so would prefer not to do that. 3. Dyspnea on exertion:He is not short of breath however he is not very active either. We can assess this when he moves around a little bit more. 4. Anemia: As per primary hospitalist service. 5. Dyslipidemia: Continue statin therapy. 6. Anticoagulation: Doing well on Eliquis. I would recommend continuing anticoagulation. Admission and Anticipated Discharge Date Admission Date: November 12, 2021 Subjective He feels about the same, perhaps a little bit better, and has remained in sinus rhythm since cardioversion. No amiodarone side effects. Physical Exam Physical Exam: Constitutional: Alert, cooperative and in no distress. HEENT: Unremarkable Neck: No jugular venous distention, carotid pulses are irregular but otherwise normal and equal bilaterally without bruits. Pulmonary: Clear to auscultation bilaterally. Cardiac: Regular rhythm with a soft holosystolic murmur at the apex, no gallop or rub. Abdomen: Soft, nontender with normal bowel sounds. Extremities: No edema. BKA. Neurologic: No focal findings. Gait was not tested. Skin: No rash, ecchymoses or petechiae. Results & Data ([facility]) Vital Signs (Past 12 Hours) Vital Signs Temp Pulse Pulse Resp BP BP Pulse Ox 11/28/21 14:00 36.7 C 134 H 18 118/59 L 97 11/28/21 13:35 36.7 C 56 L 110/61 11/28/21 13:00 88 108/57 L 11/28/21 12:30 58 L 99/57 L 11/28/21 12:00 63 99/45 L 11/28/21 11:30 62 82/43 L 11/28/21 11:00 62 92/51 L 11/28/21 10:30 60 100/58 L 11/28/21 10:03 36.6 C 62 11/28/21 09:00 60 11/28/21 08:00 37.0 C 66 18 125/70 97 Laboratory Results CBC 11/28/21 Range/Units 05:27 Hgb 8.0 L (14.0-18.0) g/dL Hct 26.5 L (42-52) % Comprehensive Metabolic Panel 11/28/21 Range/Units 05:27 Sodium 138 (136-145) mmol/L Potassium 4.2 (3.5-5.1) mmol/L Chloride 100 (98-107) mmol/L Carbon Dioxide 26 (21-32) mmol/L BUN 48 H (6-23) mg/dl Creatinine 7.04 H* (0.6-1.4) mg/dl Glucose 117 H (70-99(Fasting)) mg/dl Calcium 8.0 L (8.5-10.1) mg/dl Albumin 2.6 L (3.4-5.0) gm/dl Intake and Output 11/28/21 11/28/21 11/28/21 06:59 14:59 22:59 Intake Total 100 / 1060 650 / 650 Balance 100 / 1060 650 / 650 Intake: Oral 650 / 650 Other 100 / 100 Other: Hemodialysis Ultrafiltration 1,000 Amount # Unmeasured Voids 2 Weight 124.4 kg 123.4 kg Weight Measurement Method Built in [facility] Built in [facility] Patient Weight 11/29/21 06:59 Weight 123.4 kg Diagnostic Findings Telemetry: He has remained in sinus rhythm since cardioversion. Rate controlled, no significant arrhythmia. PG Care Time/CCT Total # of Minutes Spent Total Time Spent with Patient: Total time spent is greater than 50% in coordination of care (as documented) at patient's floor/unit and/or counseling patient: Coding Level of Care Code 43365 Subseq Hosp Care Lvl 2 Diagnoses Atrial fibrillation with rapid ventricular response I48.91 Hypotension I95.89 Hypotension type: other hypotension type Dyspnea on exertion R06.00 Anemia N18.6; D63.1; Z99.2 Anemia type: due to chronic kidney disease Chronic kidney disease stage: on chronic dialysis Dyslipidemia E78.5 Anticoagulant long-term use Z79.01 (1) Anemia Anemia type: due to chronic kidney disease Chronic kidney disease stage: on chronic dialysis Qualified Code(s): N18.6 - End stage renal disease; D63.1 - Anemia in chronic kidney disease; Z99.2 - Dependence on renal dialysis (2) Hypotension Hypotension type: other hypotension type Qualified Code(s): I95.89 - Other hypotension
[2021-11-28] MEDS: LATANOPROST 0.005% OP SOLN 2.5 ML BTL OP SCH (20:18)
[2021-11-28] MEDS: SENNA 8.6 MG TAB PO SCH (20:18)
[2021-11-29] MEDS: LEVOTHYROXINE SODIUM 50 MCG TABLET PO SCH (05:07)
[2021-11-29 07:33] LABS: Albumin Level 2.7 gm/dl (3.4-5.0); Bilirubin Direct 0.1 mg/dl (0-0.2); Bilirubin,Total 0.4 mg/dl (0.2-1.0); Total Protein 6.7 gm/dl (6.0-8.3)
[2021-11-29] MEDS: INSULIN ASPART PER UNIT SC SCH ×4 (08:08→20:08)
[2021-11-29] MEDS: HYDROmorphone INJ 1 MG/ML SYRINGE IV PRN ×2 (08:12→15:11)
[2021-11-29] MEDS: FERROUS SULFATE 325 MG TAB PO SCH ×2 (08:14→17:54)
[2021-11-29] MEDS: AMIODARONE 200 MG TAB PO SCH ×2 (08:14→17:54)
[2021-11-29] MEDS: APIXABAN 5 MG TABLET PO SCH ×2 (08:14→20:06)
[2021-11-29] MEDS: TAMSULOSIN HCL 0.4 MG CAP PO SCH (08:16)
[2021-11-29] MEDS: ASPIRIN 81 MG ECTAB PO SCH (08:16)
[2021-11-29] MEDS: allopurinoL 100 MG TAB PO SCH (08:16)
[2021-11-29] MEDS: MULTIVITAMIN TAB PO SCH (08:17)
[2021-11-29] MEDS: FOLIC ACID 1 MG TAB PO SCH (08:17)
[2021-11-29] MEDS: METOPROLOL SUCC 50MG EXT REL TAB PO SCH (08:17)
[2021-11-29] MEDS: BRIMONIDINE TARTRATE-P 0.15% 5 ML BTL OPB SCH ×2 (08:18→20:04)
[2021-11-29] MEDS: CALCITRIOL 0.25 MCG CAPSULE PO SCH ×2 (08:18→20:03)
[2021-11-29] MEDS: ATORVASTATIN 40 MG TAB PO SCH (08:18)
[2021-11-29] MEDS: INSULIN GLARGINE SOLOSTAR 100 UNITS/ML 3 ML PEN SC SCH (08:19)
[2021-11-29] MEDS: DOCUSATE SODIUM 100 MG CAP PO SCH ×2 (08:19→20:45)
[2021-11-29] MEDS: cloNIDine HCL 0.1 MG TAB PO SCH (08:24)
[2021-11-29 08:46] LABS: Basophils # (auto) 0.02 K/uL (0-0.2); Basophils % (auto) 0.3 %; Eosinophils # (auto) 0.14 K/uL (0-0.5); Eosinophils % (auto) 2.1 %; Hematocrit (blood only) 27.2 % (42-52); Immature Granulocytes # (auto) 0.03 K/uL (0.00-0.02); Immature Granulocytes % (auto) 0.4 %; Lymphocytes # (auto) 1.13 K/uL (1.2-3.4); Lymphocytes % (auto) 16.8 %; Mean Corpuscular Hemoglobin 28.2 pg (25-34); Mean Corpuscular Hgb Conc 29.4 g/dL (32-36); Mean Corpuscular Volume 95.8 fL (80-100); Monocytes # (auto) 0.51 K/uL (0.11-0.59); Monocytes % (auto) 7.6 %; Neutrophils % (auto) 72.8 %; Platelet Count 161 K/uL (130-400); RDW Coefficient of Variation 17.2 % (11.5-14.5); RDW Standard Deviation 60.2 fL (36.4-46.3); Red Blood Count 2.84 M/uL (4.7-6.1); White Blood Count 6.73 K/uL (4.8-10.8)
--- NOTE | 2021-11-29 10:52 | Nephrology Progress Note ---
Date of Service November 29, 2021 Assessment & Plan (1) ESRD (end stage renal disease): Plan: Attributed to DKD. Started HD 11/15/21 via [facility]. Remains on MWF HD schedule. Completed treatment yesterday with adequate clearance and UF. Plan to continue HD at [facility] post discharge. Medications appropriately dosed for IHD. Renal diet. Remains on calcitriol 0.5 mg/dL BID for sPTH. Taking vitamin B supplement + MVI. (2) Anemia: Plan: Epogen 97039 units provided 11/23/21. Oral FeSO4 BID for CANDELARIO. Monitor H/H weekly. (3) Hypertension: Plan: Volume status controlled. BP acceptable. (4) Urinary retention: Plan: Flomax started. Document I/O's. Bladder scan q shift PRN. (5) S/P BKA (below knee amputation) unilateral: Plan: Stable for discharge to rehab from a nephrology standpoint. Admission and Anticipated Discharge Date Admission Date: November 12, 2021 Subjective No acute events overnight. Not sleeping well at night. Feeling tired today. Completed HD yesterday without complications. Voiding very little urine. No chest pain or palpitations. Review of Systems Review of Systems: All systems reviewed & are unremarkable except as noted in HPI & below Physical Exam Constitutional: well developed; no acute distress Eyes: + anicteric sclerae; no corneal abnormality ENMT: Mouth: no oral mucosal abnormality and oral mucous membranes not dry Neck: normal visual inspection and trachea midline Respiratory: normal respiratory effort Auscultation: lungs clear to auscultation bilaterally Cardiovascular: Rate/Rhythm: regular rate Heart Sounds: normal S1 and normal S2 Extremities: no edema Musculoskeletal: Extremities: no cyanosis and no clubbing Skin: normal turgor; no lesions Neurologic: Motor/Sensory: no tremor and no asterixis Psychiatric: Orientation: alert and oriented x 3 Results & Data ([facility]) Vital Signs (Past 12 Hours) Vital Signs Temp Pulse Pulse Resp BP Pulse Ox 11/29/21 09:15 64 11/29/21 07:01 36.8 C 68 18 112/57 L 97 11/29/21 02:51 37.2 C 66 20 121/66 95 11/29/21 00:54 67 11/28/21 23:03 37.4 C 66 20 121/68 95 Laboratory Results Laboratory Results - last 24 hr 11/28/21 11/28/21 11/29/21 16:15 20:05 06:12 WBC RBC Hgb Hct MCV MCH MCHC RDW Std Deviation RDW Coeff of Millie Plt Count MPV Immature Gran % (Auto) Neut % (Auto) Lymph % (Auto) Bibb % (Auto) Eos % (Auto) Baso % (Auto) Neut # (Auto) Lymph # (Auto) Bibb # (Auto) Eos # (Auto) Baso # (Auto) Immature Gran # (Auto) POC Glucose 148 H 127 H Total Bilirubin 0.4 Direct Bilirubin 0.1 AST 15 ALT 18 Alkaline Phosphatase 54 Total Protein 6.7 Albumin 2.7 L 11/29/21 11/29/21 07:23 08:15 WBC 6.73 RBC 2.84 L Hgb 8.0 L Hct 27.2 L MCV 95.8 MCH 28.2 MCHC 29.4 L RDW Std Deviation 60.2 H RDW Coeff of Millie 17.2 H Plt Count 161 MPV 10.0 Immature Gran % (Auto) 0.4 Neut % (Auto) 72.8 Lymph % (Auto) 16.8 Bibb % (Auto) 7.6 Eos % (Auto) 2.1 Baso % (Auto) 0.3 Neut # (Auto) 4.90 Lymph # (Auto) 1.13 L Bibb # (Auto) 0.51 Eos # (Auto) 0.14 Baso # (Auto) 0.02 Immature Gran # (Auto) 0.03 H POC Glucose 100 H Total Bilirubin Direct Bilirubin AST ALT Alkaline Phosphatase Total Protein Albumin PG Care Time/CCT Total # of Minutes Spent Total Time Spent with Patient: Total time spent is greater than 50% in coordination of care (as documented) at patient's floor/unit and/or counseling patient: Coding Level of Care Code 43760 Subseq Hosp Care Lvl 3 Diagnoses ESRD (end stage renal disease) N18.6 Anemia N18.6; D63.1; Z99.2 Anemia type: due to chronic kidney disease Chronic kidney disease stage: on chronic dialysis Hypertension I10 Hypertension type: essential hypertension Urinary retention R33.9 S/P BKA (below knee amputation) unilateral Z89.519 (1) Anemia Anemia type: due to chronic kidney disease Chronic kidney disease stage: on chronic dialysis Qualified Code(s): N18.6 - End stage renal disease; D63.1 - Anemia in chronic kidney disease; Z99.2 - Dependence on renal dialysis (2) Hypertension Hypertension type: essential hypertension Qualified Code(s): I10 - Essential (primary) hypertension
[2021-11-29] MEDS: CEFEPIME 1,000 MG in SYRINGE 0 ML IV SCH (15:12)
[2021-11-29] MEDS: LATANOPROST 0.005% OP SOLN 2.5 ML BTL OP SCH (20:03)
[2021-11-29] MEDS: SENNA 8.6 MG TAB PO SCH (20:04)
[2021-11-29] MEDS ORDERED: INSULIN GLARGINE SOLOSTAR 100 UNITS/ML 3 ML PEN SC SCH (21:00)
[2021-11-30] MEDS: HYDROmorphone INJ 1 MG/ML SYRINGE IV PRN (03:32)
[2021-11-30] MEDS: LEVOTHYROXINE SODIUM 50 MCG TABLET PO SCH (06:01)
[2021-11-30 06:10] LABS: Hematocrit (blood only) 26.8 % (42-52); Hemoglobin 8.1 g/dL (14.0-18.0)
[2021-11-30 06:25] LABS: Albumin Level 2.6 gm/dl (3.4-5.0); BUN Creatinine Ratio 6.4 (10-20); Calcium 8.3 mg/dl (8.5-10.1); Creatinine Clr Calc Pharmacy 12.6 ml/min; Est GFR (African American) 8.4 ml/min; Est GFR (Non-African American) 7.2 ml/min; Phosphorus 6.3 mg/dl (2.5-4.9); Potassium 4.3 mmol/L (3.5-5.1)
--- NOTE | 2021-11-30 08:21 | Nephrology Progress Note ---
Date of Service November 30, 2021 Assessment & Plan (1) ESRD (end stage renal disease): Plan: * ESKD due to DKD. 1st run HD 11/15/21 via [facility] * Currently on MWF HD schedule. Will provide HD today * Will need AVF creation as outpatient (2) Anemia: Plan: * Transfused 1U PRBC 11/12/21 * Epogen 43879 units provided 11/23/21 * FeSO4 po BID (3) Hypertension: Plan: * Volume status controlled. BP acceptable (4) Urinary retention: Plan: * On Flomax. Document I/O's. Bladder scan q shift PRN (5) S/P BKA (below knee amputation) unilateral: Plan: * L BKA 11/16/21 * Stable for discharge to rehab from a nephrology standpoint. Admission and Anticipated Discharge Date Admission Date: November 12, 2021 Subjective Mr. Arias was evaluated in his hospital room this morning. He reports that he was living on his own prior to hospitalization. He was able to fix his own meals and complete ADL's. Mr. Arias wishes to continue w/ PT. He has been able to sit up on his own but has not yet attempted transfers Review of Systems Constitutional: no fever Eyes: no problem reported Ear, Nose, Mouth, Throat: no problem reported Respiratory: no cough and no dyspnea Cardiovascular: no chest pain Gastrointestinal: no abdominal pain and no diarrhea/loose stools Genitourinary: no dysuria, no urinary hesitancy or no hematuria Neurologic: no confusion Physical Exam Constitutional: + morbidly obese Eyes: PERRL, conjunctivae normal, anicteric sclerae ENMT: external ear and nose normal, oropharynx normal Neck: trachea midline, no thyromegaly Respiratory: normal respiratory effort, lungs clear to auscultation Cardiovascular: Rate/Rhythm: regular rate and regular rhythm Gastrointestinal (Abdomen): normal bowel sounds, soft, nontender, no hepatosplenomegaly Musculoskeletal: s/p L BKA Neurologic: awake; not confused Results & Data ([facility]) Vital Signs (Past 12 Hours) Vital Signs Temp Pulse Pulse Resp BP Pulse Ox 11/30/21 07:23 36.9 C 58 L 18 111/60 93 11/30/21 04:29 37.1 C 59 L 18 114/66 95 11/30/21 00:08 61 11/29/21 23:19 37.2 C 60 18 119/65 97 Laboratory Results Laboratory Tests 11/30/21 11/30/21 05:39 05:39 Hgb 8.1 L Hct 26.8 L Sodium 136 Potassium 4.3 Chloride 102 Carbon Dioxide 24 BUN 45 H Creatinine 7.04 H* Glucose 126 H Calcium 8.3 L Albumin 2.6 L PG Care Time/CCT Total # of Minutes Spent Total Time Spent with Patient: Total time spent is greater than 50% in coordination of care (as documented) at patient's floor/unit and/or counseling patient: Coding Level of Care Code 43418 Subseq Hosp Care Lvl 3 Diagnoses ESRD (end stage renal disease) N18.6 Anemia N18.6; D63.1; Z99.2 Anemia type: due to chronic kidney disease Chronic kidney disease stage: on chronic dialysis Hypertension I10 Hypertension type: essential hypertension Urinary retention R33.9 S/P BKA (below knee amputation) unilateral Z89.519 (1) Anemia Anemia type: due to chronic kidney disease Chronic kidney disease stage: on chronic dialysis Qualified Code(s): N18.6 - End stage renal disease; D63.1 - Anemia in chronic kidney disease; Z99.2 - Dependence on renal dialysis (2) Hypertension Hypertension type: essential hypertension Qualified Code(s): I10 - Essential (primary) hypertension
[2021-11-30] MEDS: INSULIN ASPART PER UNIT SC SCH ×4 (08:25→20:49)
[2021-11-30] MEDS ORDERED: INSULIN GLARGINE SOLOSTAR 100 UNITS/ML 3 ML PEN SC SCH ×2 (09:00→21:00)
[2021-11-30] MEDS: APIXABAN 5 MG TABLET PO SCH ×2 (12:39→20:55)
[2021-11-30] MEDS: CALCITRIOL 0.25 MCG CAPSULE PO SCH ×2 (12:39→20:55)
[2021-11-30] MEDS: METOPROLOL SUCC 50MG EXT REL TAB PO SCH (12:40)
[2021-11-30] MEDS: TAMSULOSIN HCL 0.4 MG CAP PO SCH (12:40)
[2021-11-30] MEDS: AMIODARONE 200 MG TAB PO SCH ×2 (12:40→17:29)
[2021-11-30] MEDS: FERROUS SULFATE 325 MG TAB PO SCH ×2 (12:40→17:30)
[2021-11-30] MEDS: cloNIDine HCL 0.1 MG TAB PO SCH (12:40)
[2021-11-30] MEDS: FOLIC ACID 1 MG TAB PO SCH (12:40)
[2021-11-30] MEDS: MULTIVITAMIN TAB PO SCH (12:40)
[2021-11-30] MEDS: allopurinoL 100 MG TAB PO SCH (12:41)
[2021-11-30] MEDS: ATORVASTATIN 40 MG TAB PO SCH (12:41)
[2021-11-30] MEDS: DOCUSATE SODIUM 100 MG CAP PO SCH ×2 (12:41→21:04)
[2021-11-30] MEDS: ASPIRIN 81 MG ECTAB PO SCH (12:41)
[2021-11-30] MEDS: BRIMONIDINE TARTRATE-P 0.15% 5 ML BTL OPB SCH ×2 (12:42→20:53)
--- NOTE | 2021-11-30 15:24 | Hospitalist Progress Note ---
Date of Service November 30, 2021 Assessment & Plan (1) Osteomyelitis: Plan: per Dr. Tucker's notes with addendum: 71 yo M w/ PMH of CKD stage IV, uncontrolled diabetes mellitus with peripheral neuropathy, hypertension, SUKHWINDER, and HLD presented 11/12 to our ED at referral of PCP for evaluation of SOB. Patient main concern was shortness of breath which was present for 5 days prior to admission however he was not aware of his left foot infection complicated with necrotic tissue. Pt does have peripheral neuropathy and states no sensation below his knees. 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 - Patient has remained afebrile, hemodynamically stable since admission. on admission, exam with necrotic tissue involving the left fourth and fifth toe and plantar surface of the left foot. - LLE Doppler negative for DVT - LLE arterial duplex positive for hemodynamically significant stenosis in the distal anterior tibial artery and dorsalis pedis artery. - MRI foot and ankle 11/13 shows soft tissues ulcer of lateral forefoot with cellulitis with OM of fifth metatarsal head and phalanges with soft tissue gas of forefoot ?secondary to direct extension from soft tissue ulcer vs necrotizing fascitis; tenosynovitis of extensor digitorum - s/p left BKA 11/16 by ortho-OR culture from 11/16 with Citrobacter. Discussed with ID Dr. Jansen 11/19. Okay to discontinue vanc and continue cefepime only (1gm IV daily) Cipro is not a good option given his ESRD and Afib being on amio. Prior blood clx with diphtheroids- Blood culture 11/20 negative to date Plan for 2 weeks antibiotics. (until 12/03). Depending on timing of discharge to facility, he may be able to leave with a peripheral IV versus an ultrasound guided one -Stump pain: continue oxycodone, gabapentin held overnight for confusion -stump evaluated by ortho again today and appeared stable. Follow up with ortho after discharge 11/30 remains stable overall feels tired continue IV Cefepime continue to monitor (2) Atrial fibrillation with RVR, new onset - since 11/15/21, still in rate controlled Afib, asymptomatic. TTE reviewed, no new change. Seen by cardio-transitioned to PO amiodarone. Heparin drip held briefly due to bleeding at stump and permacath site in post op period Bleeding resolved, H/H remains stable. Cleared by Vascular surgery and ortho to resume heparin drip--resumed 11/20. -transitioned to Eliquis 5mg BID with no recurrent bleed -s/p CVN 11/26 11/30 HR controlled (3) CKD4 now ESRD - Permacath placed 11/15, had 1st HD 11/15, with subsequent dialysis nephro - Losartan and furosemide on hold. Hold nephrotoxics, ABx dosing per pharmacy based on renal function - abelardo need OP dialysis set up 11/30 s/p HD today with 1.5 L off monitor closely (4) Hypoxia: -CXR and chest clear, stable on 2 L of NC, wean down as tolerated, continue incentive spirometer. S/p 2 U of PRBC transfusion. Anemia and deconditioning likely contributing. - currently on room air (5) Anemia of CKD: -Hgb 7.5 on presentation (baseline ~ 10.0) and s/p 2 U of PRBC, now Hb >8. Aranesp therapy per nephro. -No further bleeding noted here - Hg 8.1 monitor (6) Diabetes mellitus, type 2: -Hgb A1c 7.8 10/2021; diabetic management per pharmacy. He is requiring much less insulin here than his baseline--> would recommend he be discharged on: Lantus 6 units BID, Novolog 3 units TID-AC (7) Hypothyroidism: -Continue levothyroxine (8) Pulmonary arterial hypertension: - fluid status being managed primarily by dialysis. Lasix discontinued (9) Hypertension- - BP lower now that he is on dialysis. Home amlodipine discontinued. Still on Toprol and clonidine. Consider weaning off Clonidine - change Clonidine to daily 10) Peripheral artery disease LLE- LLE arterial duplex with hemodynamically significant stenosis of distal ant tibial artery and dorsalis pedis artery; Seen by vascular surgery- no intervention needed New left wrist fluid collection, resolving -May be related to lab draw on that side (evidence of venous puncture on his hand/wrist). will elevate wrist, apply ice Q shift. -will place left arm on limb alert (to save for future dialysis site) - improving BPH with urinary retention -patient makes very little urine but noted with urinary retention several night ago (> 1L removed with straight cath), this was accumulation from prior days. CT A/P noted to have moderately sized prostate. Flomax started here DVT prophylaxis: [place] Dispo: transition to Acute Rehab when medically stable Admission and Anticipated Discharge Date Admission Date: November 12, 2021 Subjective ff up for acute renal failure, OM, s/p L BKA, etc seen resting in bed, comfortable sleeping, easily awakened states he feels tired after HD otherwise feels ok no chest pain, dyspnea, palpitations, dizziness pain over L BKA stump well controlled no other symptoms Review of Systems Review of Systems: all noted and negative except for above Physical Exam Physical Exam: General- oriented x 3, not in distress, speaks in sentences wi th no effort or accessory muscle use Eyes- anicteric Neck- no JVD Lungs- clear BS BL, no rales/wheezes Heart- normal rate, regular rhythm; no murmurs Abdomen- normal bowel sounds, nondistended, soft, nontender Extremities-L stump: heavy dressing in place, no bleeding or discharge, no edema on the rest of the leg Neuro- alert, oriented x 3; no gross focal neurologic deficits Skin- warm & dry Results & Data Results & Data ([facility]) Vital Signs (Past 12 Hours) Vital Signs Temp Pulse Pulse Pulse Resp BP BP 11/30/21 14:00 11/30/21 12:11 36.9 C 64 100/64 11/30/21 12:00 64 99/66 L 11/30/21 11:30 64 91/51 L 11/30/21 11:00 61 109/61 11/30/21 10:30 60 91/56 L 11/30/21 10:00 60 88/61 L 11/30/21 09:30 58 L 112/61 11/30/21 09:08 36.9 C 61 11/30/21 07:23 36.9 C 58 L 18 111/60 11/30/21 06:45 59 L 11/30/21 04:29 37.1 C 59 L 18 114/66 Pulse Ox Pulse Ox 11/30/21 14:00 96 11/30/21 12:11 11/30/21 12:00 11/30/21 11:30 11/30/21 11:00 11/30/21 10:30 11/30/21 10:00 11/30/21 09:30 11/30/21 09:08 11/30/21 07:23 93 11/30/21 06:45 11/30/21 04:29 95 all noted and reviewed including below (1) Osteomyelitis Laterality: unspecified laterality Osteomyelitis location: foot Osteomyelitis type: unspecified type Qualified Code(s): M86.9 - Osteomyelitis, unspecified
--- NOTE | 2021-11-30 15:27 | Hospitalist Progress Note ---
Date of Service November 30, 2021 delayed entry date of service 11/29/21 Assessment & Plan (1) Osteomyelitis: Plan: per Dr. Tucker's notes with addendum: 71 yo M w/ PMH of CKD stage IV, uncontrolled diabetes mellitus with peripheral neuropathy, hypertension, SUKHWINDER, and HLD presented 11/12 to our ED at referral of PCP for evaluation of SOB. Patient main concern was shortness of breath which was present for 5 days prior to admission however he was not aware of his left foot infection complicated with necrotic tissue. Pt does have peripheral neuropathy and states no sensation below his knees. 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 - Patient has remained afebrile, hemodynamically stable since admission. on admission, exam with necrotic tissue involving the left fourth and fifth toe and plantar surface of the left foot. - LLE Doppler negative for DVT - LLE arterial duplex positive for hemodynamically significant stenosis in the distal anterior tibial artery and dorsalis pedis artery. - MRI foot and ankle 11/13 shows soft tissues ulcer of lateral forefoot with cellulitis with OM of fifth metatarsal head and phalanges with soft tissue gas of forefoot ?secondary to direct extension from soft tissue ulcer vs necrotizing fascitis; tenosynovitis of extensor digitorum - s/p left BKA 11/16 by ortho-OR culture from 11/16 with Citrobacter. Discussed with ID Dr. Jansen 11/19. Okay to discontinue vanc and continue cefepime only (1gm IV daily) Cipro is not a good option given his ESRD and Afib being on amio. Prior blood clx with diphtheroids- Blood culture 11/20 negative to date Plan for 2 weeks antibiotics. (until 12/03). Depending on timing of discharge to facility, he may be able to leave with a peripheral IV versus an ultrasound guided one -Stump pain: continue oxycodone, gabapentin held overnight for confusion -stump evaluated by ortho again today and appeared stable. Follow up with ortho after discharge 11/29 feeling tired, not yet ready for discharge as per patient continue IV Cefepime continue to monitor (2) Atrial fibrillation with RVR, new onset - since 11/15/21, still in rate controlled Afib, asymptomatic. TTE reviewed, no new change. Seen by cardio-transitioned to PO amiodarone. Heparin drip held briefly due to bleeding at stump and permacath site in post op period Bleeding resolved, H/H remains stable. Cleared by Vascular surgery and ortho to resume heparin drip--resumed 11/20. -transitioned to Eliquis 5mg BID with no recurrent bleed -s/p CVN 11/26 11/29 HR controlled (3) CKD4 now ESRD - Permacath placed 11/15, had 1st HD 11/15, with subsequent dialysis nephro - Losartan and furosemide on hold. Hold nephrotoxics, ABx dosing per pharmacy based on renal function - abelardo need OP dialysis set up 11/29 HD per Nephro monitor closely (4) Hypoxia: -CXR and chest clear, stable on 2 L of NC, wean down as tolerated, continue incentive spirometer. S/p 2 U of PRBC transfusion. Anemia and deconditioning likely contributing. - wean off o2 (5) Anemia of CKD: -Hgb 7.5 on presentation (baseline ~ 10.0) and s/p 2 U of PRBC, now Hb >8. Aranesp therapy per nephro. -No further bleeding noted here - Hg 8 monitor (6) Diabetes mellitus, type 2: -Hgb A1c 7.8 10/2021; diabetic management per pharmacy. He is requiring much less insulin here than his baseline--> would recommend he be discharged on: Lantus 6 units BID, Novolog 3 units TID-AC (7) Hypothyroidism: -Continue levothyroxine (8) Pulmonary arterial hypertension: - fluid status being managed primarily by dialysis. Lasix discontinued (9) Hypertension- - BP lower now that he is on dialysis. Home amlodipine discontinued. Still on Toprol and clonidine. Consider weaning off Clonidine - change Clonidine to daily 10) Peripheral artery disease LLE- LLE arterial duplex with hemodynamically significant stenosis of distal ant tibial artery and dorsalis pedis artery; Seen by vascular surgery- no intervention needed New left wrist fluid collection, resolving -May be related to lab draw on that side (evidence of venous puncture on his hand/wrist). will elevate wrist, apply ice Q shift. -will place left arm on limb alert (to save for future dialysis site) - improving BPH with urinary retention -patient makes very little urine but noted with urinary retention several night ago (> 1L removed with straight cath), this was accumulation from prior days. CT A/P noted to have moderately sized prostate. Flomax started here DVT prophylaxis: Eliquis Dispo: transition to Acute Rehab when medically stable Admission and Anticipated Discharge Date Admission Date: November 12, 2021 Subjective ff up for OM, s/p BKA, acute renal failure, etc seen resting in bed, comfortable states he feels tired no chest pain, dyspnea, palpitations, dizziness has some pain on the L stump no other symptoms Review of Systems Review of Systems: all noted and negative except for above Physical Exam Physical Exam: General- oriented x 3, not in distress, speaks in sentences with no effort or accessory muscle use Eyes- anicteric Neck- no JVD Lungs- clear BS BL, no rales/wheezes Heart- normal rate, irregularly irregular rhythm; no murmurs Abdomen- normal bowel sounds, nondistended, soft, nontender Extremities-L stump: bandage in place, no bleeding or discharge Neuro- alert, oriented x 3; no gross focal neurologic deficits Skin- warm & dry Results & Data Results & Data ([facility]) Vital Signs (Past 12 Hours) Vital Signs Temp Pulse Pulse Pulse Resp BP BP 11/30/21 14:00 11/30/21 12:11 36.9 C 64 100/64 11/30/21 12:00 64 99/66 L 11/30/21 11:30 64 91/51 L 11/30/21 11:00 61 109/61 11/30/21 10:30 60 91/56 L 11/30/21 10:00 60 88/61 L 11/30/21 09:30 58 L 112/61 11/30/21 09:08 36.9 C 61 11/30/21 07:23 36.9 C 58 L 18 111/60 11/30/21 06:45 59 L 11/30/21 04:29 37.1 C 59 L 18 114/66 Pulse Ox Pulse Ox 11/30/21 14:00 96 11/30/21 12:11 11/30/21 12:00 11/30/21 11:30 11/30/21 11:00 11/30/21 10:30 11/30/21 10:00 11/30/21 09:30 11/30/21 09:08 11/30/21 07:23 93 11/30/21 06:45 11/30/21 04:29 95 all noted and reviewed including below (1) Osteomyelitis Laterality: unspecified laterality Osteomyelitis location: foot Osteomyelitis type: unspecified type Qualified Code(s): M86.9 - Osteomyelitis, unspecified
[2021-11-30] MEDS: CEFEPIME 1,000 MG in SYRINGE 0 ML IV SCH (17:27)
[2021-11-30] MEDS: ACETAMINOPHEN 325 MG TAB PO PRN (17:29)
[2021-11-30] MEDS: LATANOPROST 0.005% OP SOLN 2.5 ML BTL OP SCH (20:53)
[2021-11-30] MEDS: SENNA 8.6 MG TAB PO SCH (20:56)
[2021-12-01] MEDS: ACETAMINOPHEN 325 MG TAB PO PRN ×2 (01:23→21:28)
[2021-12-01] MEDS: LEVOTHYROXINE SODIUM 50 MCG TABLET PO SCH (05:46)
[2021-12-01 08:18] LABS: Hematocrit (blood only) 27.7 % (42-52); Hemoglobin 8.4 g/dL (14.0-18.0); Mean Corpuscular Hemoglobin 28.5 pg (25-34); Mean Corpuscular Hgb Conc 30.3 g/dL (32-36); Mean Corpuscular Volume 93.9 fL (80-100); Mean Platelet Volume 9.9 fL (7.4-10.4); Platelet Count 141 K/uL (130-400); RDW Coefficient of Variation 17.1 % (11.5-14.5); RDW Standard Deviation 59.4 fL (36.4-46.3); Red Blood Count 2.95 M/uL (4.7-6.1); White Blood Count 5.25 K/uL (4.8-10.8)
--- NOTE | 2021-12-01 08:29 | Nephrology Progress Note ---
Date of Service December 01, 2021 Assessment & Plan (1) ESRD (end stage renal disease): Plan: * ESKD due to DKD. 1st run HD 11/15/21 via TCC * Currently on MWF HD schedule * Dialyzed yesterday for 3 hours w/ 1500 cc UF. TCC ran A-->A. There were no complications. No acute indication for HD today * Will need AVF creation as outpatient (2) Anemia: Plan: * Transfused 1U PRBC 11/12/21 * Epogen 50615 units provided 11/23/21 * FeSO4 po BID (3) Hypertension: Plan: * Volume status controlled. BP acceptable (4) Urinary retention: Plan: * On Flomax. Document I/O's. Bladder scan q shift PRN (5) S/P BKA (below knee amputation) unilateral: Plan: * L BKA 11/16/21 * Stable for discharge to rehab from a nephrology standpoint Admission and Anticipated Discharge Date Admission Date: November 12, 2021 Subjective Mr. Arias was evaluated in his hospital room this morning. He reports that he was living on his own prior to hospitalization. He was able to fix his own meals and complete ADL's. Mr. Arias was dialyzed yesterday for 3 hours w/ 1500 cc UF. TCC ran A-->A. There were no complications. Mr. Arias declined PT yesterday due to fatigue following HD treatment Review of Systems Constitutional: no fever Eyes: no problem reported Ear, Nose, Mouth, Throat: no problem reported Respiratory: no cough and no dyspnea Cardiovascular: no chest pain Gastrointestinal: no abdominal pain and no diarrhea/loose stools Genitourinary: no dysuria, no urinary hesitancy or no hematuria Integumentary: + skin ulcer Neurologic: no confusion Physical Exam Constitutional: + morbidly obese Eyes: PERRL, conjunctivae normal, anicteric sclerae ENMT: external ear and nose normal, oropharynx normal Neck: trachea midline, no thyromegaly Respiratory: normal respiratory effort, lungs clear to auscultation Cardiovascular: Rate/Rhythm: regular rate and regular rhythm Extremities: + edema Gastrointestinal (Abdomen): normal bowel sounds, soft, nontender, no hepatosplenomegaly Neurologic: awake; not confused Results & Data ([facility]) Vital Signs (Past 12 Hours) Vital Signs Temp Pulse Pulse Resp BP Pulse Ox 12/01/21 07:00 36.9 C 59 L 17 125/66 98 12/01/21 04:17 36.8 C 58 L 18 120/63 98 11/30/21 23:45 36.7 C 59 L 18 111/63 98 11/30/21 22:17 61 Laboratory Results Laboratory Tests 12/01/21 08:06 WBC 5.25 Hgb 8.4 L Hct 27.7 L Plt Count 141 Laboratory Tests 12/01/21 08:06 Sodium 135 L Potassium 4.3 Chloride 102 Carbon Dioxide 24 BUN 35 H Creatinine 5.68 H* D Glucose 152 H PG Care Time/CCT Total # of Minutes Spent Total Time Spent with Patient: Total time spent is greater than 50% in coordination of care (as documented) at patient's floor/unit and/or counseling patient: Coding Level of Care Code 63902 Subseq Hosp Care Lvl 3 Diagnoses ESRD (end stage renal disease) N18.6 Anemia N18.6; D63.1; Z99.2 Anemia type: due to chronic kidney disease Chronic kidney disease stage: on chronic dialysis Hypertension I10 Hypertension type: essential hypertension Urinary retention R33.9 S/P BKA (below knee amputation) unilateral Z89.519 (1) Anemia Anemia type: due to chronic kidney disease Chronic kidney disease stage: on chronic dialysis Qualified Code(s): N18.6 - End stage renal disease; D63.1 - Anemia in chronic kidney disease; Z99.2 - Dependence on renal dialysis (2) Hypertension Hypertension type: essential hypertension Qualified Code(s): I10 - Essential (primary) hypertension
[2021-12-01 08:51] LABS: BUN Creatinine Ratio 6.2 (10-20); Calcium 8.5 mg/dl (8.5-10.1); Creatinine Clr Calc Pharmacy 15.6 ml/min; Est GFR (African American) 10.9 ml/min; Est GFR (Non-African American) 9.4 ml/min; Potassium 4.3 mmol/L (3.5-5.1)
[2021-12-01] MEDS: INSULIN ASPART PER UNIT SC SCH ×4 (09:05→21:30)
[2021-12-01] MEDS: FERROUS SULFATE 325 MG TAB PO SCH ×2 (09:24→16:35)
[2021-12-01] MEDS: AMIODARONE 200 MG TAB PO SCH ×2 (09:24→16:35)
[2021-12-01] MEDS: allopurinoL 100 MG TAB PO SCH (09:24)
[2021-12-01] MEDS: APIXABAN 5 MG TABLET PO SCH ×2 (09:24→21:29)
[2021-12-01] MEDS: BRIMONIDINE TARTRATE-P 0.15% 5 ML BTL OPB SCH ×2 (09:25→21:30)
[2021-12-01] MEDS: cloNIDine HCL 0.1 MG TAB PO SCH (09:25)
[2021-12-01] MEDS: ATORVASTATIN 40 MG TAB PO SCH (09:25)
[2021-12-01] MEDS: CALCITRIOL 0.25 MCG CAPSULE PO SCH ×2 (09:25→21:29)
[2021-12-01] MEDS: ASPIRIN 81 MG ECTAB PO SCH (09:25)
[2021-12-01] MEDS: DOCUSATE SODIUM 100 MG CAP PO SCH ×2 (09:25→21:28)
[2021-12-01] MEDS: FOLIC ACID 1 MG TAB PO SCH (09:26)
[2021-12-01] MEDS: INSULIN GLARGINE SOLOSTAR 100 UNITS/ML 3 ML PEN SC SCH ×2 (09:26→22:17)
[2021-12-01] MEDS: MULTIVITAMIN TAB PO SCH (09:26)
[2021-12-01] MEDS: TAMSULOSIN HCL 0.4 MG CAP PO SCH (09:26)
[2021-12-01] MEDS: METOPROLOL SUCC 50MG EXT REL TAB PO SCH (09:26)
[2021-12-01] MEDS: HYDROmorphone INJ 1 MG/ML SYRINGE IV PRN (09:34)
--- NOTE | 2021-12-01 13:40 | Pharmacy Report ---
Pharmacy Glycemic Short Note 2 - Date of Service December 01, 2021 - Glycemic Short BSG Results (Last 24 hours): 11/30/21 11/30/21 12/01/21 16:24 20:16 07:02 Glucose POC Glucose 122 H 146 H 130 H 12/01/21 12/01/21 08:06 11:01 Glucose 152 H POC Glucose 134 H OUTPATIENT ANTIDIABETIC REGIMEN: * Lantus 50 units SC PM * HbA1c: 7.8% (11/13/21) ASSESSMENT: 12/01/21 * BSGs remain well-controlled over past 48 hours, ranging 95-146 mg/dL * Requiring approximately 10-15 units of insulin per day * Carb coverage removed yesterday, will continue this for today and give basal and correctional bolus only - reassess appropriateness in AM 11/28/21 * BSGs remain well-controlled, ranging 109-156 mg/dL over past 24 hours, fasting BSG of 109 mg/dL this morning * Received 24 units of insulin yesterday (12 units of basal and 12 units of prandial/correctional bolus) * Remains on cefepime, HD today * Do not anticipate any changes needed to current insulin regimen 11/26/21 * BSGs well-controlled yesterday, ranging 119-134 mg/dL, fasting BSG of 111 mg/dL this morning * Received 22 units of insulin (14 units of Lantus and 8 units of prandial/correctional Novolog) * NPO after midnight today for cardioversion (now post-op) * Will hold AM Lantus this morning and resume with HS once diet reordered Background: * 71 yo admitted secondary to osteomyelitis. Pharmacy has been consulted to assist with inpatient glycemic management. * Ordered a type 2 diabetic diet. Currently on Daptomycin and Cefepime. SCr at 7.18 mg/dL (patient is ESRD but refuses HD). * Did take 50 units of Lantus evening prior to admission. * Will hold Lantus for now given BSGs. * Start Novolog only. Target BSG of 110-140 mg/dL to help with infection and promote wound healing. PLAN FOR INPATIENT GLYCEMIC CONTROL: * Basal insulin * Lantus 5 units SC BID * Bolus insulin * NovoLog per scale ACHS or Q6hrs while NPO * Goal Range: Low 110 mg/dL - High 140 mg/dL * Correction Factor: 18 mg/dL/unit * Hold carb coverage
[2021-12-01] MEDS: CEFEPIME 1,000 MG in SYRINGE 0 ML IV SCH (16:34)
--- NOTE | 2021-12-01 18:26 | Hospitalist Progress Note ---
Date of Service December 01, 2021 delayed entry date of service noted as above Assessment & Plan (1) Osteomyelitis: Plan: per Dr. Tucker's notes with addendum: 71 yo M w/ PMH of CKD stage IV, uncontrolled diabetes mellitus with peripheral neuropathy, hypertension, SUKHWINDER, and HLD presented 11/12 to our ED at referral of PCP for evaluation of SOB. Patient main concern was shortness of breath which was present for 5 days prior to admission however he was not aware of his left foot infection complicated with necrotic tissue. Pt does have peripheral neuropathy and states no sensation below his knees. 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 - Patient has remained afebrile, hemodynamically stable since admission. on admission, exam with necrotic tissue involving the left fourth and fifth toe and plantar surface of the left foot. - LLE Doppler negative for DVT - LLE arterial duplex positive for hemodynamically significant stenosis in the distal anterior tibial artery and dorsalis pedis artery. - MRI foot and ankle 11/13 shows soft tissues ulcer of lateral forefoot with cellulitis with OM of fifth metatarsal head and phalanges with soft tissue gas of forefoot ?secondary to direct extension from soft tissue ulcer vs necrotizing fascitis; tenosynovitis of extensor digitorum - s/p left BKA 11/16 by ortho-OR culture from 11/16 with Citrobacter. Discussed with ID Dr. Jansen 11/19. Okay to discontinue vanc and continue cefepime only (1gm IV daily) Cipro is not a good option given his ESRD and Afib being on amio. Prior blood clx with diphtheroids- Blood culture 11/20 negative to date Plan for 2 weeks antibiotics. (until 12/03). Depending on timing of discharge to facility, he may be able to leave with a peripheral IV versus an ultrasound guided one -Stump pain: continue oxycodone, gabapentin held overnight for confusion -stump evaluated by ortho again today and appeared stable. Follow up with ortho after discharge 12/01 weakness improving continue IV Cefepime til 12/03 continue to monitor (2) Atrial fibrillation with RVR, new onset - since 11/15/21, still in rate controlled Afib, asymptomatic. TTE reviewed, no new change. Seen by cardio-transitioned to PO amiodarone. Heparin drip held briefly due to bleeding at stump and permacath site in post op period Bleeding resolved, H/H remains stable. Cleared by Vascular surgery and ortho to resume heparin drip--resumed 11/20. -transitioned to Eliquis 5mg BID with no recurrent bleed -s/p CVN 4/ HR controlled (3) CKD4 now ESRD - Permacath placed 11/15, had 1st HD 11/15, with subsequent dialysis nephro - Losartan and furosemide on hold. Hold nephrotoxics, ABx dosing per pharmacy based on renal function - abelardo need OP dialysis set up HD per Nephro monitor closely (4) Hypoxia: -CXR and chest clear, stable on 2 L of NC, wean down as tolerated, continue incentive spirometer. S/p 2 U of PRBC transfusion. Anemia and deconditioning likely contributing. - wean off o2 (5) Anemia of CKD: -Hgb 7.5 on presentation (baseline ~ 10.0) and s/p 2 U of PRBC, now Hb >8. Aranesp therapy per nephro. -No further bleeding noted here - Hg 8 monitor (6) Diabetes mellitus, type 2: -Hgb A1c 7.8 10/2021; diabetic management per pharmacy. He is requiring much less insulin here than his baseline--> would recommend he be discharged on: Lantus 6 units BID, Novolog 3 units TID-AC (7) Hypothyroidism: -Continue levothyroxine (8) Pulmonary arterial hypertension: - fluid status being managed primarily by dialysis. Lasix discontinued (9) Hypertension- - BP lower now that he is on dialysis. Home amlodipine discontinued. Still on Toprol and clonidine. Consider weaning off Clonidine - change Clonidine to daily 10) Peripheral artery disease LLE- LLE arterial duplex with hemodynamically significant stenosis of distal ant tibial artery and dorsalis pedis artery; Seen by vascular surgery- no intervention needed New left wrist fluid collection, resolving -May be related to lab draw on that side (evidence of venous puncture on his hand/wrist). will elevate wrist, apply ice Q shift. -will place left arm on limb alert (to save for future dialysis site) - improving BPH with urinary retention -patient makes very little urine but noted with urinary retention several night ago (> 1L removed with straight cath), this was accumulation from prior days. CT A/P noted to have moderately sized prostate. Flomax started here DVT prophylaxis: Shaka Dispo: transition to Acute Rehab when medically stable Admission and Anticipated Discharge Date Admission Date: November 12, 2021 Subjective ff up for L OM s/p BKA, acute renal failure, etc seen resting in bed, comfortable states he feels improved overall no chest pain, dyspnea, palpitations, dizziness leg pain well controlled appetite good no other symptoms Review of Systems Review of Systems: all noted and negative except for above Physical Exam Physical Exam: General- oriented x 3, not in distress, speaks in sentences with no effort or accessory muscle use Eyes- anicteric Neck- no JVD Lungs- clear BS BL Heart- normal rate, regular rhythm; no murmurs Abdomen- normal bowel sounds, nondistended, soft, nontender Extremities- L stump- dressing in place- no bleeding or discharge Neuro- alert, oriented x 3; no gross focal neurologic deficits Skin- warm & dry Results & Data Results & Data ([facility]) Vital Signs (Past 12 Hours) Vital Signs Temp Pulse Resp BP Pulse Ox 12/01/21 16:09 37.2 C 59 L 18 125/61 97 12/01/21 10:49 36.9 C 60 16 124/62 96 12/01/21 07:00 36.9 C 59 L 17 125/66 98 all noted and reviewed including below (1) Osteomyelitis Laterality: unspecified laterality Osteomyelitis location: foot Osteomyelitis type: unspecified type Qualified Code(s): M86.9 - Osteomyelitis, unspecified
[2021-12-01] MEDS: SENNA 8.6 MG TAB PO SCH (21:29)
[2021-12-01] MEDS: LATANOPROST 0.005% OP SOLN 2.5 ML BTL OP SCH (21:31)
[2021-12-02] MEDS: ACETAMINOPHEN 325 MG TAB PO PRN ×2 (04:18→21:02)
[2021-12-02] MEDS: LEVOTHYROXINE SODIUM 50 MCG TABLET PO SCH (06:34)
[2021-12-02 07:56] LABS: Hematocrit (blood only) 26.3 % (42-52); Hemoglobin 7.8 g/dL (14.0-18.0); Mean Corpuscular Hgb Conc 29.7 g/dL (32-36); Mean Corpuscular Volume 94.3 fL (80-100); Mean Platelet Volume 10.1 fL (7.4-10.4); Platelet Count 157 K/uL (130-400); RDW Coefficient of Variation 17.3 % (11.5-14.5); RDW Standard Deviation 60.3 fL (36.4-46.3); Red Blood Count 2.79 M/uL (4.7-6.1); White Blood Count 5.22 K/uL (4.8-10.8)
[2021-12-02 08:29] LABS: BUN Creatinine Ratio 6.5 (10-20); Calcium 8.6 mg/dl (8.5-10.1); Creatinine Clr Calc Pharmacy 12.5 ml/min; Est GFR (African American) 8.3 ml/min; Est GFR (Non-African American) 7.1 ml/min; Potassium 4.6 mmol/L (3.5-5.1)
--- NOTE | 2021-12-02 08:53 | Nephrology Progress Note ---
Date of Service December 02, 2021 Assessment & Plan (1) ESRD (end stage renal disease): Plan: * ESKD due to DKD. 1st run HD 11/15/21 via [facility] * Currently on MWF HD schedule * Will schedule HD for am and notify HD RN * Will need AVF creation as outpatient (2) Anemia: Plan: * Continue FeSO4 po BID * Will provide ROBERTH w/ HD tomorrow * If Hgb drops < 7.5, recommend transfusion w/ 1 U PRBC (3) Hypertension: Plan: * Volume status controlled. BP acceptable (4) Urinary retention: Plan: * On Flomax. Document I/O's. Bladder scan q shift PRN (5) S/P BKA (below knee amputation) unilateral: Plan: * L BKA 11/16/21 * Stable for discharge to rehab from a nephrology standpoint (6) Constipation: Plan: * Will order one dose Miralax this am Admission and Anticipated Discharge Date Admission Date: November 12, 2021 Subjective Mr. Arias was evaluated in his hospital room this morning. He c/o constipation and requests a laxative. Review of Systems Constitutional: no fever Eyes: no problem reported Ear, Nose, Mouth, Throat: no problem reported Respiratory: no cough and no dyspnea Cardiovascular: no chest pain Gastrointestinal: no abdominal pain and no diarrhea/loose stools Genitourinary: no dysuria, no urinary hesitancy or no hematuria Integumentary: + skin ulcer Neurologic: no confusion Physical Exam Constitutional: + morbidly obese Eyes: PERRL, conjunctivae normal, anicteric sclerae ENMT: external ear and nose normal, oropharynx normal Neck: trachea midline, no thyromegaly Respiratory: normal respiratory effort, lungs clear to auscultation Cardiovascular: Rate/Rhythm: regular rate and regular rhythm Extremities: + edema Gastrointestinal (Abdomen): normal bowel sounds, soft, nontender, no hepatosplenomegaly Neurologic: awake; not confused Results & Data ([facility]) Vital Signs (Past 12 Hours) Vital Signs Temp Pulse Pulse Resp BP Pulse Ox 12/02/21 06:54 36.7 C 60 19 129/65 97 12/02/21 04:10 36.7 C 82 18 128/70 91 12/01/21 23:18 36.6 C 58 L 18 128/66 97 12/01/21 22:18 60 Laboratory Results Laboratory Tests 12/01/21 12/02/21 12/02/21 08:06 07:10 07:10 WBC 5.22 Hgb 7.8 L Hct 26.3 L Plt Count 157 Sodium 135 L 136 Potassium 4.3 4.6 Chloride 102 102 Carbon Dioxide 24 25 BUN 35 H 46 H Creatinine 5.68 H* D 7.11 H* D Glucose 152 H 159 H PG Care Time/CCT Total # of Minutes Spent Total Time Spent with Patient: Total time spent is greater than 50% in coordination of care (as documented) at patient's floor/unit and/or counseling patient: Coding Level of Care Code 46344 Subseq Hosp Care Lvl 3 Diagnoses ESRD (end stage renal disease) N18.6 Anemia N18.6; D63.1; Z99.2 Anemia type: due to chronic kidney disease Chronic kidney disease stage: on chronic dialysis Hypertension I10 Hypertension type: essential hypertension Urinary retention R33.9 S/P BKA (below knee amputation) unilateral Z89.519 Constipation K59.00 (1) Anemia Anemia type: due to chronic kidney disease Chronic kidney disease stage: on chronic dialysis Qualified Code(s): N18.6 - End stage renal disease; D63.1 - Anemia in chronic kidney disease; Z99.2 - Dependence on renal dialysis (2) Hypertension Hypertension type: essential hypertension Qualified Code(s): I10 - Essential (primary) hypertension
[2021-12-02] MEDS: INSULIN ASPART PER UNIT SC SCH ×4 (09:01→21:00)
[2021-12-02] MEDS: BRIMONIDINE TARTRATE-P 0.15% 5 ML BTL OPB SCH ×2 (09:02→20:47)
[2021-12-02] MEDS: APIXABAN 5 MG TABLET PO SCH ×2 (09:02→20:48)
[2021-12-02] MEDS: ASPIRIN 81 MG ECTAB PO SCH (09:02)
[2021-12-02] MEDS: AMIODARONE 200 MG TAB PO SCH ×2 (09:02→16:25)
[2021-12-02] MEDS: FERROUS SULFATE 325 MG TAB PO SCH ×2 (09:02→16:25)
[2021-12-02] MEDS: ATORVASTATIN 40 MG TAB PO SCH (09:02)
[2021-12-02] MEDS: allopurinoL 100 MG TAB PO SCH (09:02)
[2021-12-02] MEDS: METOPROLOL SUCC 50MG EXT REL TAB PO SCH (09:03)
[2021-12-02] MEDS: DOCUSATE SODIUM 100 MG CAP PO SCH ×2 (09:03→20:47)
[2021-12-02] MEDS: cloNIDine HCL 0.1 MG TAB PO SCH (09:03)
[2021-12-02] MEDS: CALCITRIOL 0.25 MCG CAPSULE PO SCH ×2 (09:03→20:48)
[2021-12-02] MEDS: FOLIC ACID 1 MG TAB PO SCH (09:03)
[2021-12-02] MEDS: INSULIN GLARGINE SOLOSTAR 100 UNITS/ML 3 ML PEN SC SCH ×2 (09:03→22:36)
[2021-12-02] MEDS: TAMSULOSIN HCL 0.4 MG CAP PO SCH (09:04)
[2021-12-02] MEDS: MULTIVITAMIN TAB PO SCH (09:04)
[2021-12-02] MEDS: HYDROmorphone INJ 1 MG/ML SYRINGE IV PRN (09:04)
[2021-12-02] MEDS ORDERED: POLYETHYLENE (MIRALAX) 17 GM PACK PO ONE (10:44)
--- NOTE | 2021-12-02 15:39 | Hospitalist Progress Note ---
Date of Service December 02, 2021 Assessment & Plan (1) Osteomyelitis: Plan: per Dr. Tucker's notes with addendum: 71 yo M w/ PMH of CKD stage IV, uncontrolled diabetes mellitus with peripheral neuropathy, hypertension, SUKHWINDER, and HLD presented 11/12 to our ED at referral of PCP for evaluation of SOB. Patient main concern was shortness of breath which was present for 5 days prior to admission however he was not aware of his left foot infection complicated with necrotic tissue. Pt does have peripheral neuropathy and states no sensation below his knees. 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 - Patient has remained afebrile, hemodynamically stable since admission. on admission, exam with necrotic tissue involving the left fourth and fifth toe and plantar surface of the left foot. - LLE Doppler negative for DVT - LLE arterial duplex positive for hemodynamically significant stenosis in the distal anterior tibial artery and dorsalis pedis artery. - MRI foot and ankle 11/13 shows soft tissues ulcer of lateral forefoot with cellulitis with OM of fifth metatarsal head and phalanges with soft tissue gas of forefoot ?secondary to direct extension from soft tissue ulcer vs necrotizing fascitis; tenosynovitis of extensor digitorum - s/p left BKA 11/16 by ortho-OR culture from 11/16 with Citrobacter. Discussed with ID Dr. Jansen 11/19. Okay to discontinue vanc and continue cefepime only (1gm IV daily) Cipro is not a good option given his ESRD and Afib being on amio. Prior blood clx with diphtheroids- Blood culture 11/20 negative to date Plan for 2 weeks antibiotics. (until 12/03). Depending on timing of discharge to facility, he may be able to leave with a peripheral IV versus an ultrasound guided one -Stump pain: continue oxycodone, gabapentin held overnight for confusion -stump evaluated by ortho again today and appeared stable. Follow up with ortho after discharge 12/02 weakness improving stable overall continue IV Cefepime til 12/03 continue to monitor (2) Atrial fibrillation with RVR, new onset - since 11/15/21, still in rate controlled Afib, asymptomatic. TTE reviewed, no new change. Seen by cardio-transitioned to PO amiodarone. Heparin drip held briefly due to bleeding at stump and permacath site in post op period Bleeding resolved, H/H remains stable. Cleared by Vascular surgery and ortho to resume heparin drip--resumed 11/20. -transitioned to Eliquis 5mg BID with no recurrent bleed -s/p CVN 11/26 HR controlled (3) CKD4 now ESRD - Permacath placed 11/15, had 1st HD 11/15, with subsequent dialysis nephro - Losartan and furosemide on hold. Hold nephrotoxics, ABx dosing per pharmacy based on renal function - abelardo need OP dialysis set up HD per Nephro monitor closely (4) Hypoxia: -CXR and chest clear, stable on 2 L of NC, wean down as tolerated, continue incentive spirometer. S/p 2 U of PRBC transfusion. Anemia and deconditioning likely contributing. - wean off o2 (5) Anemia of CKD: -Hgb 7.5 on presentation (baseline ~ 10.0) and s/p 2 U of PRBC, now Hb >8. Aranesp therapy per nephro. -No further bleeding noted here - Hg 7.8 monitor (6) Diabetes mellitus, type 2: -Hgb A1c 7.8 10/2021; diabetic management per pharmacy. He is requiring much less insulin here than his baseline--> would recommend he be discharged on: Lantus 6 units BID, Novolog 3 units TID-AC (7) Hypothyroidism: -Continue levothyroxine (8) Pulmonary arterial hypertension: - fluid status being managed primarily by dialysis. Lasix discontinued (9) Hypertension- - BP lower now that he is on dialysis. Home amlodipine discontinued. Still on Toprol and clonidine. Consider weaning off Clonidine - change Clonidine to daily 10) Peripheral artery disease LLE- LLE arterial duplex with hemodynamically significant stenosis of distal ant tibial artery and dorsalis pedis artery; Seen by vascular surgery- no intervention needed New left wrist fluid collection, resolving -May be related to lab draw on that side (evidence of venous puncture on his hand/wrist). will elevate wrist, apply ice Q shift. -will place left arm on limb alert (to save for future dialysis site) - improving BPH with urinary retention -patient makes very little urine but noted with urinary retention several night ago (> 1L removed with straight cath), this was accumulation from prior days. CT A/P noted to have moderately sized prostate. Flomax started here DVT prophylaxis: Belindaqushorty Dispo: transition to Acute Rehab when medically stable Admission and Anticipated Discharge Date Admission Date: November 12, 2021 Subjective ff up for L foot OM, s/p BKA, acute renal failure, etc seen resting in bed, comfortable states weakness continues to improve no chest pain, dyspnea, palpitations, dizziness minimal leg pain no other symptoms Review of Systems Review of Systems: all noted and negative except for above Physical Exam Physical Exam: General- oriented x 3, not in distress, speaks in sentences with no effort or accessory muscle use Eyes- anicteric Neck- no JVD Lungs- clearBS bilaterally, no rales/wheezes Heart- normal rate, regular rhythm; no murmurs Abdomen- normal bowel sounds, nondistended, soft, nontender Extremities-RLE no pretibial edema, no calf tenderness LLE: L stump- dressing in place- no bleeding, or discharge Neuro- alert, oriented x 3; no gross focal neurologic deficits Skin- warm & dry Results & Data Results & Data ([facility]) Vital Signs (Past 12 Hours) Vital Signs Temp Pulse Resp BP Pulse Ox 12/02/21 15:14 36.6 C 58 L 19 119/67 97 12/02/21 10:58 36.6 C 58 L 17 116/64 97 12/02/21 06:54 36.7 C 60 19 129/65 97 12/02/21 04:10 36.7 C 82 18 128/70 91 all noted and reviewed including below (1) Osteomyelitis Laterality: unspecified laterality Osteomyelitis location: foot Osteomyelitis type: unspecified type Qualified Code(s): M86.9 - Osteomyelitis, unspecified
[2021-12-02] MEDS: CEFEPIME 1,000 MG in SYRINGE 0 ML IV SCH (16:25)
[2021-12-02] MEDS: LATANOPROST 0.005% OP SOLN 2.5 ML BTL OP SCH (20:47)
[2021-12-02] MEDS: SENNA 8.6 MG TAB PO SCH (20:47)
[2021-12-03] MEDS: ACETAMINOPHEN 325 MG TAB PO PRN ×2 (05:44→22:30)
[2021-12-03] MEDS: LEVOTHYROXINE SODIUM 50 MCG TABLET PO SCH (05:44)
[2021-12-03] MEDS ORDERED: SODIUM CHLORIDE 0.9% 1000ML 1,000 ML IV PRN (07:00)
[2021-12-03] MEDS ORDERED: EPOETIN ALFA 10,000 UNITS/ML VIAL IV SCH (07:00)
[2021-12-03 08:09] LABS: BUN Creatinine Ratio 7.3 (10-20); Calcium 8.6 mg/dl (8.5-10.1); Creatinine Clr Calc Pharmacy 11.1 ml/min; Est GFR (African American) 7.2 ml/min; Est GFR (Non-African American) 6.2 ml/min
[2021-12-03] MEDS: INSULIN ASPART PER UNIT SC SCH ×4 (08:27→20:44)
--- NOTE | 2021-12-03 08:33 | Nephrology Progress Note ---
Date of Service December 03, 2021 Assessment & Plan (1) ESRD (end stage renal disease): Plan: * ESKD due to DKD. 1st run HD 11/15/21 via [facility] * Currently on MWF HD schedule * HD today. Orders have been entered into EMR and HD RN notified * Will need AVF creation as outpatient (2) Anemia: Plan: * Continue FeSO4 po BID * Will provide ROBERTH w/ HD tomorrow * If Hgb drops < 7.5, recommend transfusion w/ 1 U PRBC (3) Hypertension: Plan: * Volume status controlled. BP acceptable (4) Urinary retention: Plan: * On Flomax. Document I/O's. Bladder scan q shift PRN (5) S/P BKA (below knee amputation) unilateral: Plan: * L BKA 11/16/21 * Encouraged participation in PT * Stable for discharge to rehab from a nephrology standpoint Admission and Anticipated Discharge Date Admission Date: November 12, 2021 Subjective Mr. Arias was evaluated in his hospital room. He is preparing for HD this am. He voices no new medical concerns. Review of Systems Constitutional: no fever Eyes: no problem reported Ear, Nose, Mouth, Throat: no problem reported Respiratory: no cough and no dyspnea Cardiovascular: no chest pain Gastrointestinal: no abdominal pain and no diarrhea/loose stools Genitourinary: no dysuria, no urinary hesitancy or no hematuria Neurologic: no confusion Physical Exam Constitutional: + morbidly obese Eyes: PERRL, conjunctivae normal, anicteric sclerae ENMT: external ear and nose normal, oropharynx normal Neck: trachea midline, no thyromegaly Respiratory: normal respiratory effort, lungs clear to auscultation Cardiovascular: Rate/Rhythm: regular rate and regular rhythm Extremities: no edema Gastrointestinal (Abdomen): normal bowel sounds, soft, nontender, no hepatosplenomegaly Neurologic: awake; not confused Results & Data ([facility]) Vital Signs (Past 12 Hours) Vital Signs Temp Pulse Pulse Resp BP Pulse Ox 12/03/21 02:51 36.6 C 60 20 114/59 L 97 12/02/21 22:52 36.8 C 62 18 120/60 94 12/02/21 22:18 59 L Laboratory Results Laboratory Tests 12/01/21 12/02/21 12/03/21 08:06 07:10 07:17 WBC 5.22 Hgb 7.8 L Hct 26.3 L Plt Count 157 Sodium 135 L 136 Potassium 4.3 5.0 Chloride 102 102 Carbon Dioxide 24 23 BUN 35 H 58 H Creatinine 5.68 H* D 7.97 H* D Glucose 152 H 115 H PG Care Time/CCT Total # of Minutes Spent Total Time Spent with Patient: Total time spent is greater than 50% in coordination of care (as documented) at patient's floor/unit and/or counseling patient: Coding Diagnoses ESRD (end stage renal disease) N18.6 Anemia N18.6; D63.1; Z99.2 Anemia type: due to chronic kidney disease Chronic kidney disease stage: on chronic dialysis Hypertension I10 Hypertension type: essential hypertension Urinary retention R33.9 S/P BKA (below knee amputation) unilateral Z89.519 (1) Anemia Anemia type: due to chronic kidney disease Chronic kidney disease stage: on chronic dialysis Qualified Code(s): N18.6 - End stage renal disease; D63.1 - Anemia in chronic kidney disease; Z99.2 - Dependence on renal dialysis (2) Hypertension Hypertension type: essential hypertension Qualified Code(s): I10 - Essential (primary) hypertension
[2021-12-03 09:42] LABS: Hemoglobin 7.9 g/dL (14.0-18.0); Mean Corpuscular Hemoglobin 28.3 pg (25-34); Mean Corpuscular Hgb Conc 30.4 g/dL (32-36); Mean Corpuscular Volume 93.2 fL (80-100); Mean Platelet Volume 10.1 fL (7.4-10.4); Platelet Count 156 K/uL (130-400); RDW Coefficient of Variation 17.1 % (11.5-14.5); RDW Standard Deviation 58.7 fL (36.4-46.3); Red Blood Count 2.79 M/uL (4.7-6.1)
[2021-12-03] MEDS: METOPROLOL SUCC 50MG EXT REL TAB PO SCH (12:53)
[2021-12-03] MEDS: cloNIDine HCL 0.1 MG TAB PO SCH (12:53)
[2021-12-03] MEDS: APIXABAN 5 MG TABLET PO SCH ×2 (12:53→20:37)
[2021-12-03] MEDS: ASPIRIN 81 MG ECTAB PO SCH (12:54)
[2021-12-03] MEDS: MULTIVITAMIN TAB PO SCH (12:54)
[2021-12-03] MEDS: CALCITRIOL 0.25 MCG CAPSULE PO SCH ×2 (12:54→20:37)
[2021-12-03] MEDS: ATORVASTATIN 40 MG TAB PO SCH (12:54)
[2021-12-03] MEDS: FOLIC ACID 1 MG TAB PO SCH (12:54)
[2021-12-03] MEDS: BRIMONIDINE TARTRATE-P 0.15% 5 ML BTL OPB SCH ×2 (12:55→20:37)
[2021-12-03] MEDS: AMIODARONE 200 MG TAB PO SCH ×2 (12:55→17:33)
[2021-12-03] MEDS: FERROUS SULFATE 325 MG TAB PO SCH ×2 (12:55→17:33)
[2021-12-03] MEDS: allopurinoL 100 MG TAB PO SCH (12:55)
[2021-12-03] MEDS: TAMSULOSIN HCL 0.4 MG CAP PO SCH (12:56)
[2021-12-03] MEDS: INSULIN GLARGINE SOLOSTAR 100 UNITS/ML 3 ML PEN SC SCH ×2 (12:56→20:44)
--- NOTE | 2021-12-03 13:29 | Hospitalist Progress Note ---
Date of Service December 03, 2021 Assessment & Plan (1) Osteomyelitis: Plan: per Dr. Tucker's notes with addendum: 71 yo M w/ PMH of CKD stage IV, uncontrolled diabetes mellitus with peripheral neuropathy, hypertension, SUKHWINDER, and HLD presented 11/12 to our ED at referral of PCP for evaluation of SOB. Patient main concern was shortness of breath which was present for 5 days prior to admission however he was not aware of his left foot infection complicated with necrotic tissue. Pt does have peripheral neuropathy and states no sensation below his knees. 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 - Patient has remained afebrile, hemodynamically stable since admission. on admission, exam with necrotic tissue involving the left fourth and fifth toe and plantar surface of the left foot. - LLE Doppler negative for DVT - LLE arterial duplex positive for hemodynamically significant stenosis in the distal anterior tibial artery and dorsalis pedis artery. - MRI foot and ankle 11/13 shows soft tissues ulcer of lateral forefoot with cellulitis with OM of fifth metatarsal head and phalanges with soft tissue gas of forefoot ?secondary to direct extension from soft tissue ulcer vs necrotizing fascitis; tenosynovitis of extensor digitorum - s/p left BKA 11/16 by ortho-OR culture from 11/16 with Citrobacter. Discussed with ID Dr. Jansen 11/19. Okay to discontinue vanc and continue cefepime only (1gm IV daily) Cipro is not a good option given his ESRD and Afib being on amio. Prior blood clx with diphtheroids- Blood culture 11/20 negative to date Plan for 2 weeks antibiotics. (until 12/03). Depending on timing of discharge to facility, he may be able to leave with a peripheral IV versus an ultrasound guided one -Stump pain: continue oxycodone, gabapentin held overnight for confusion -stump evaluated by ortho again today and appeared stable. Follow up with ortho after discharge 12/03 weakness improving stable overall continue IV Cefepime til 12/03 continue to monitor (2) Atrial fibrillation with RVR, new onset - since 11/15/21, still in rate controlled Afib, asymptomatic. TTE reviewed, no new change. Seen by cardio-transitioned to PO amiodarone. Heparin drip held briefly due to bleeding at stump and permacath site in post op period Bleeding resolved, H/H remains stable. Cleared by Vascular surgery and ortho to resume heparin drip--resumed 11/20. -transitioned to Eliquis 5mg BID with no recurrent bleed -s/p CVN / HR controlled (3) CKD4 now ESRD - Permacath placed 11/15, had 1st HD 11/15, with subsequent dialysis nephro - Losartan and furosemide on hold. Hold nephrotoxics, ABx dosing per pharmacy based on renal function - abelardo need OP dialysis set up HD per Nephro monitor closely (4) Hypoxia: -CXR and chest clear, stable on 2 L of NC, wean down as tolerated, continue incentive spirometer. S/p 2 U of PRBC transfusion. Anemia and deconditioning likely contributing. - wean off o2 (5) Anemia of CKD: -Hgb 7.5 on presentation (baseline ~ 10.0) and s/p 2 U of PRBC, now Hb >8. Aranesp therapy per nephro. -No further bleeding noted here - Hg 7.9 monitor (6) Diabetes mellitus, type 2: -Hgb A1c 7.8 10/2021; diabetic management per pharmacy. He is requiring much less insulin here than his baseline--> would recommend he be discharged on: Lantus 6 units BID, Novolog 3 units TID-AC (7) Hypothyroidism: -Continue levothyroxine (8) Pulmonary arterial hypertension: - fluid status being managed primarily by dialysis. Lasix discontinued (9) Hypertension- - BP lower now that he is on dialysis. Home amlodipine discontinued. Still on Toprol and clonidine. Consider weaning off Clonidine - change Clonidine to daily 10) Peripheral artery disease LLE- LLE arterial duplex with hemodynamically significant stenosis of distal ant tibial artery and dorsalis pedis artery; Seen by vascular surgery- no intervention needed New left wrist fluid collection, resolving -May be related to lab draw on that side (evidence of venous puncture on his hand/wrist). will elevate wrist, apply ice Q shift. -will place left arm on limb alert (to save for future dialysis site) - improving BPH with urinary retention -patient makes very little urine but noted with urinary retention several night ago (> 1L removed with straight cath), this was accumulation from prior days. CT A/P noted to have moderately sized prostate. Flomax started here DVT prophylaxis: [place]aka Dispo: transition to Acute Rehab when medically stable Admission and Anticipated Discharge Date Admission Date: November 12, 2021 Subjective ff up for L foot OM, s/p BKA, etc seen resting in bed, watching TV comfortable states he feels tired after HD no chest pain, dyspnea, palpitations, dizziness no other symptoms Review of Systems Review of Systems: all noted and negative except for above Physical Exam Physical Exam: General- oriented x 3, not in distress, speaks in sentences with no effort or accessory muscle use Eyes- anicteric Neck- no JVD Lungs- clear BS bilaterally, no rales/wheezes Heart- normal rate, regular rhythm; no murmurs Abdomen- normal bowel sounds, nondistended, soft, nontender Extremities- no pretibial edema, no calf tenderness L BKA- dressing in place no bleeding, no discharge Neuro- alert, oriented x 3; no gross focal neurologic deficits Skin- warm & dry Results & Data Results & Data ([facility]) Vital Signs (Past 12 Hours) Vital Signs Temp Pulse Pulse Pulse Resp BP BP 12/03/21 12:34 36.5 C 18 155/79 H 12/03/21 12:20 36.4 C L 63 116/63 12/03/21 11:40 63 95/61 L 12/03/21 11:20 62 104/64 12/03/21 11:00 62 120/70 12/03/21 10:40 60 117/70 12/03/21 10:20 60 108/67 12/03/21 10:03 60 130/70 12/03/21 09:40 62 113/65 12/03/21 09:12 61 109/83 12/03/21 08:56 36.7 C 60 12/03/21 02:51 36.6 C 60 20 114/59 L Pulse Ox 12/03/21 12:34 98 12/03/21 12:20 12/03/21 11:40 12/03/21 11:20 12/03/21 11:00 12/03/21 10:40 12/03/21 10:20 12/03/21 10:03 12/03/21 09:40 12/03/21 09:12 12/03/21 08:56 12/03/21 02:51 97 all noted and reviewed including below (1) Osteomyelitis Laterality: unspecified laterality Osteomyelitis location: foot Osteomyelitis type: unspecified type Qualified Code(s): M86.9 - Osteomyelitis, unspecified
[2021-12-03] MEDS: HYDROmorphone INJ 1 MG/ML SYRINGE IV PRN (15:00)
[2021-12-03] MEDS: DOCUSATE SODIUM 100 MG CAP PO SCH ×2 (15:00→20:38)
[2021-12-03] MEDS: CEFEPIME 1,000 MG in SYRINGE 0 ML IV SCH (15:05)
[2021-12-03] MEDS: LATANOPROST 0.005% OP SOLN 2.5 ML BTL OP SCH (20:37)
[2021-12-03] MEDS: SENNA 8.6 MG TAB PO SCH (20:38)
[2021-12-04] MEDS: LEVOTHYROXINE SODIUM 50 MCG TABLET PO SCH (05:24)
[2021-12-04] MEDS: ACETAMINOPHEN 325 MG TAB PO PRN (05:38)
[2021-12-04] MEDS: AMIODARONE 200 MG TAB PO SCH (08:37)
[2021-12-04] MEDS: cloNIDine HCL 0.1 MG TAB PO SCH (08:38)
[2021-12-04] MEDS: APIXABAN 5 MG TABLET PO SCH (08:38)
[2021-12-04] MEDS: FOLIC ACID 1 MG TAB PO SCH (08:38)
[2021-12-04] MEDS: ATORVASTATIN 40 MG TAB PO SCH (08:38)
[2021-12-04] MEDS: MULTIVITAMIN TAB PO SCH (08:38)
[2021-12-04] MEDS: FERROUS SULFATE 325 MG TAB PO SCH (08:38)
[2021-12-04] MEDS: allopurinoL 100 MG TAB PO SCH (08:38)
[2021-12-04] MEDS: CALCITRIOL 0.25 MCG CAPSULE PO SCH (08:38)
[2021-12-04] MEDS: ASPIRIN 81 MG ECTAB PO SCH (08:38)
[2021-12-04] MEDS: METOPROLOL SUCC 50MG EXT REL TAB PO SCH (08:38)
[2021-12-04] MEDS: TAMSULOSIN HCL 0.4 MG CAP PO SCH (08:39)
[2021-12-04] MEDS: BRIMONIDINE TARTRATE-P 0.15% 5 ML BTL OPB SCH (08:39)
--- NOTE | 2021-12-04 08:40 | Nephrology Progress Note ---
Date of Service December 04, 2021 Assessment & Plan (1) ESRD (end stage renal disease): Plan: * ESKD due to DKD. 1st run HD 11/15/21 via [facility] * Currently on MWF HD schedule * No acute indication for HD today. Will reassess in am * Will need AVF creation as outpatient (2) Anemia: Plan: * Continue FeSO4 po BID * Will provide ROBERTH w/ HD tomorrow * If Hgb drops < 7.5, recommend transfusion w/ 1 U PRBC (3) Hypertension: Plan: * Volume status controlled. BP acceptable (4) Urinary retention: Plan: * On Flomax. Document I/O's. Bladder scan q shift PRN (5) S/P BKA (below knee amputation) unilateral: Plan: * L BKA 11/16/21 * Encouraged participation in PT * Stable for discharge to rehab from a nephrology standpoint Admission and Anticipated Discharge Date Admission Date: November 12, 2021 Subjective Mr. Arias was evaluated in his hospital room. He c/o pain at his surgical site. Dialyzed yesterday via [facility] for 3.5 hr w/ 2L UF. No complications. Refused PT yesterday due to fatigue following HD Review of Systems Constitutional: no fever Eyes: no problem reported Ear, Nose, Mouth, Throat: no problem reported Respiratory: no cough and no dyspnea Cardiovascular: no chest pain Gastrointestinal: no abdominal pain and no diarrhea/loose stools Genitourinary: no dysuria, no urinary hesitancy or no hematuria Neurologic: no confusion Physical Exam Constitutional: + morbidly obese Eyes: PERRL, conjunctivae normal, anicteric sclerae ENMT: external ear and nose normal, oropharynx normal Neck: trachea midline, no thyromegaly Respiratory: normal respiratory effort, lungs clear to auscultation Cardiovascular: Rate/Rhythm: regular rate and regular rhythm Extremities: no edema Gastrointestinal (Abdomen): normal bowel sounds, soft, nontender, no hepatosplenomegaly Neurologic: awake; not confused Results & Data ([facility]) Vital Signs (Past 12 Hours) Vital Signs Temp Pulse Pulse Resp BP Pulse Ox 12/04/21 07:07 37.0 C 60 19 127/67 97 12/04/21 03:47 36.9 C 62 18 127/64 96 12/03/21 23:37 36.7 C 63 18 118/64 94 12/03/21 22:49 61 PG Care Time/CCT Total # of Minutes Spent Total Time Spent with Patient: Total time spent is greater than 50% in coordination of care (as documented) at patient's floor/unit and/or counseling patient: Coding Level of Care Code 65586 Subseq Hosp Care Lvl 3 Diagnoses ESRD (end stage renal disease) N18.6 Anemia N18.6; D63.1; Z99.2 Anemia type: due to chronic kidney disease Chronic kidney disease stage: on chronic dialysis Hypertension I10 Hypertension type: essential hypertension Urinary retention R33.9 S/P BKA (below knee amputation) unilateral Z89.519 (1) Anemia Anemia type: due to chronic kidney disease Chronic kidney disease stage: on chronic dialysis Qualified Code(s): N18.6 - End stage renal disease; D63.1 - Anemia in chronic kidney disease; Z99.2 - Dependence on renal dialysis (2) Hypertension Hypertension type: essential hypertension Qualified Code(s): I10 - Essential (primary) hypertension
[2021-12-04] MEDS: INSULIN GLARGINE SOLOSTAR 100 UNITS/ML 3 ML PEN SC SCH (08:42)
[2021-12-04] MEDS: INSULIN ASPART PER UNIT SC SCH ×2 (08:43→12:27)
[2021-12-04] MEDS: HYDROmorphone INJ 1 MG/ML SYRINGE IV PRN (08:50)
[2021-12-04] MEDS: ONDANSETRON INJ 2 MG/ML 2 ML VIAL IV PRN (09:40)
--- NOTE | 2021-12-04 09:47 | Hospitalist Progress Note ---
Date of Service December 04, 2021 Patient seen at around 12 noon Assessment & Plan (1) Osteomyelitis: Plan: per Dr. Tucker's notes with addendum: 71 yo M w/ PMH of CKD stage IV, uncontrolled diabetes mellitus with peripheral neuropathy, hypertension, SUKHWINDER, and HLD presented 11/12 to our ED at referral of PCP for evaluation of SOB. Patient main concern was shortness of breath which was present for 5 days prior to admission however he was not aware of his left foot infection complicated with necrotic tissue. Pt does have peripheral neuropathy and states no sensation below his knees. 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 - Patient has remained afebrile, hemodynamically stable since admission. on admission, exam with necrotic tissue involving the left fourth and fifth toe and plantar surface of the left foot. - LLE Doppler negative for DVT - LLE arterial duplex positive for hemodynamically significant stenosis in the distal anterior tibial artery and dorsalis pedis artery. - MRI foot and ankle 11/13 shows soft tissues ulcer of lateral forefoot with cellulitis with OM of fifth metatarsal head and phalanges with soft tissue gas of forefoot ?secondary to direct extension from soft tissue ulcer vs necrotizing fascitis; tenosynovitis of extensor digitorum - s/p left BKA 11/16 by ortho-OR culture from 11/16 with Citrobacter. Discussed with ID Dr. Jansen 11/19. Okay to discontinue vanc and continue cefepime only (1gm IV daily) Cipro is not a good option given his ESRD and Afib being on amio. Prior blood clx with diphtheroids- Blood culture 11/20 negative to date Plan for 2 weeks antibiotics. (until 12/03). Depending on timing of discharge to facility, he may be able to leave with a peripheral IV versus an ultrasound guided one -Stump pain: continue oxycodone, gabapentin held overnight for confusion -stump evaluated by ortho again today and appeared stable. Follow up with ortho after discharge 12/04 weakness improving stable overall completed course of IV Cefepime on 12/03 CBC and BMP in 1 week ff up with Ortho in 1 week- Dr. Jay (2) Atrial fibrillation with RVR, new onset - since 11/15/21, still in rate controlled Afib, asymptomatic. TTE reviewed, no new change. Seen by cardio-transitioned to PO amiodarone. Heparin drip held briefly due to bleeding at stump and permacath site in post op period Bleeding resolved, H/H remains stable. Cleared by Vascular surgery and ortho to resume heparin drip--resumed 11/20. -transitioned to Eliquis 5mg BID with no recurrent bleed -s/p CVN 11/26 Equipment Maintenance Superintendent consulted Amiodarone titrated HR controlled 12/04 discharge on: Amiodarone, Metoprolol, Eliquis (3) CKD4 now ESRD - Permacath placed 11/15, had 1st HD 11/15, with subsequent dialysis nephro continue HD per Nephro monitor closely (4) Hypoxia: -CXR and chest clear, stable on 2 L of NC, wean down as tolerated, continue incentive spirometer. S/p 2 U of PRBC transfusion. Anemia and deconditioning likely contributing. - wean off o2 (5) Anemia of CKD: -Hgb 7.5 on presentation (baseline ~ 10.0) and s/p 2 U of PRBC, now Hb >8. Aranesp therapy per nephro. -No further bleeding noted here - Hg 7.9 monitor (6) Diabetes mellitus, type 2: -Hgb A1c 7.8 10/2021; diabetic management per pharmacy. He is requiring much less insulin here than his baseline--> would recommend he be discharged on: Lantus 6 units BID, Novolog Insulin Sliding Scale ACHS (7) Hypothyroidism: -Continue levothyroxine (8) Pulmonary arterial hypertension: - fluid status being managed primarily by dialysis. Lasix discontinued (9) Hypertension- - BP lower now that he is on dialysis. Discontinued amlodipine, losartan, clonidine discontinued. = - monitor 10) Peripheral artery disease LLE- LLE arterial duplex with hemodynamically significant stenosis of distal ant tibial artery and dorsalis pedis artery; Seen by vascular surgery- no intervention needed - continue ASA as per Cardiology Dr. Givens New left wrist fluid collection, resolving -May be related to lab draw on that side (evidence of venous puncture on his hand/wrist). elevate wrist, apply ice Q shift. -place left arm on limb alert (to save for future dialysis site) - improving BPH with urinary retention -patient makes very little urine but noted with urinary retention several night ago (> 1L removed with straight cath), this was accumulation from prior days. CT A/P noted to have moderately sized prostate. Flomax started. DVT prophylaxis: Belindaqushorty Dispo: transition to SNF ff up with PCP in 1 week ff up with Ortho Dr. Jay in 1 week ff up with Equipment Maintenance Superintendent in 3-4 weeks Admission and Anticipated Discharge Date Admission Date: November 12, 2021 Subjective Follow-up for left foot osteomyelitis, status post BKA, etc. Seen resting in bed, comfortable, not in distress States he feels okay overall Just tired Otherwise no chest pain, shortness of breath, dizziness, palpitations No abdominal pain, nausea vomiting Left stump pain relieved by analgesics No other symptoms Patient states that he is ready for [facility] to [facility] facility today Review of Systems Review of Systems: all noted and negative except for above Physical Exam Physical Exam: General- oriented x 3, not in distress, speaks in sentences with no effort or accessory muscle use Eyes- anicteric Neck- no JVD Lungs- clear breath sounds bilaterally, no crackles or wheezing Heart- normal rate, regular rhythm; no murmurs Abdomen- normal bowel sounds, nondistended, soft, nontender Extremities- no pretibial edema, no calf tenderness Left stump-dressing in place, no bleeding or discharge Neuro- alert, oriented x 3; no gross focal neurologic deficits Skin- warm & dry Results & Data Results & Data ([facility]) Vital Signs (Past 12 Hours) Vital Signs Temp Pulse Pulse Resp BP Pulse Ox 12/04/21 08:00 63 12/04/21 07:07 37.0 C 60 19 127/67 97 12/04/21 03:47 36.9 C 62 18 127/64 96 12/03/21 23:37 36.7 C 63 18 118/64 94 12/03/21 22:49 61 all noted and reviewed including below (1) Osteomyelitis Laterality: unspecified laterality Osteomyelitis location: foot Osteomyelitis type: unspecified type Qualified Code(s): M86.9 - Osteomyelitis, unspecified
[2021-12-04] MEDS: DOCUSATE SODIUM 100 MG CAP PO SCH (12:27)
--- NOTE | 2021-12-04 12:55 | Discharge Summary ---
Date of Service December 04, 2021 Admission HPI Per Admitting Provider 71-year-old male with PMH IDDM, CKD stage IV, SUKHWINDER, pulmonary hypertension, diabetic neuropathy, HTN, and other problems to below who presents to the ED by referral PCP for evaluation of shortness of breath. Patient reports that about 5 days ago, he noted that he was having some shortness of breath with exertion. He was not too concerned and waited for his scheduled appointment with his PCP today. While at PCPs office, patient was noted to have chills and rigors. He had a low-grade temp. He was sent to the ED for further evaluation. Patient reports that he has been having chills and rigors for about the past 1 week. Denies cough and sputum production. No abdominal pain, nausea, vomiting, diarrhea. Denies urinary symptoms. Patient reports that he regularly performs self foot exams with a mirror. In the ED, patient was afebrile, vital signs stable. WBC 25K. Creatinine 7.18 (baseline ~ 4.0). Patient was hypoxic on room air at 85%, was placed on 4 L of oxygen via nasal cannula. During my exam, I was able to wean the patient down to 1 L of oxygen via nasal cannula and he maintain saturations > 95%. CXR negative for acute cardiopulmonary disease. On exam, patient is noted to have necrotic tissue over the left fourth and fifth toes in the left plantar surface of the left foot. Foot x-ray shows Focal lucency is seen about the fifth metatarsophalangeal joint with associated ulcer compatible with osteomyelitis. Patient was given IV Dapto and IV cefepime. Admission Exam Per Admitting Provider Constitutional: WD/WN, vitals as above + obese Eyes: PERRL, conjunctivae normal, anicteric sclerae ENMT: external ear and nose normal, oropharynx normal Respiratory: normal respiratory effort, lungs clear to auscultation Cardiovascular: Rate/Rhythm: regular rate and regular rhythm Vessels: normal peripheral pulses Extremities: + edema (+2 edema LLE (chronic per patient)) Gastrointestinal (Abdomen): normal bowel sounds, soft, nontender, no hepatosplenomegaly Musculoskeletal: no cyanosis or clubbing, extremities motor strength 5/5 Skin: no rashes, warm and dry Dressing in place to left foot, left vides with erythema and warm to touch, please refer to wound care photos of left foot wounds/necrotic tissue Neurologic: PERRL, EOMI, accommodation nl, no face palsy, no dysarthria Psychiatric: A+Ox3, euthymic affect Principal Diagnosis Sepsis secondary to left foot osteomyelitis, status post below the knee amputation 11/16/2021 Atrial fibrillation Discharge Exam General- oriented x 3, not in distress, speaks in sentences with no effort or accessory muscle use Eyes- anicteric Neck- no JVD Lungs- clear breath sounds bilaterally, no crackles or wheezing Heart- normal rate, regular rhythm; no murmurs Abdomen- normal bowel sounds, nondistended, soft, nontender Extremities- no pretibial edema, no calf tenderness Left stump-dressing in place, no bleeding or discharge Neuro- alert, oriented x 3; no gross focal neurologic deficits Skin- warm & dry Discharge Data Allergies Allergy/AdvReac Type Severity Reaction Status Date / Time metformin Allergy Intermediate GI SYMPTOMS Verified 09/28/21 12:30 isosorbide Allergy Mild Rash Verified 09/28/21 12:30 lisinopril Allergy Unknown CAN'T Verified 09/28/21 12:30 REMEMBER Consultations 11/12/21 13:58 Consult Orthopedic Surgery Routine 11/12/21 14:39 Consult Nephrology Routine 11/13/21 08:08 Consult Infectious Diseases Routine 11/13/21 10:58 Consult Vascular Surgery Routine 11/14/21 08:48 Consult Vascular Surgery Routine 11/15/21 09:00 Consult Cardiology Routine 11/26/21 07:15 Consult Anesthesiology Routine Procedures Performed Operation Date: 11/15/21 07:55 Actual Procedures p Insertion of Perm Catheter, Right Internal Jugular Approach, Ultrasound Localization of Right Internal Jugular Vein, Fluoroscopy for Positioning, Moderate Sedation [id number](Right) - Patricio Hdez MD Operation Date: 11/16/21 07:00 Actual Procedures p Left Below Knee Amputation(Left) - Joselito Jay DO Operation Date: 11/26/21 07:15 <No data on this case meets the specified criteria> Operation Date: 11/26/21 07:15 Actual Procedures p Cardioversion - David Givens MD Ordered Studies 11/12/21 14:13 US venous doppler LE LT Routine 11/12/21 17:37 US renal/blad retro comp Routine 11/12/21 19:01 MR ankle LT wo con Routine MR foot LT w/o con Routine US arterial duplex LE LT Routine 11/15/21 07:08 EV cvc insrt tnnl with prt/distributing clerk Urgent US EV guide vascular access Urgent 11/16/21 15:16 US - OR guided needle placemen Routine 11/26/21 04:22 CT abd pelvis wo con Urgent FINDINGS: Lung base: There is evidence for bibasilar alveolar opacities with differential being atelectasis versus early pneumonia. There is cardiomegaly with extensive coronary artery calcification. Abdominal cavity: There is no evidence for abdominal mass, adenopathy or ascites. There is a small ventral abdominal wall hernia in the right lower quadrant containing mesenteric fat. No bowel loop herniation is seen. Liver: The liver is homogeneous in attenuation on these limited noncontrast images.. Spleen: The spleen is homogeneous in attenuation on these limited noncontrast images. There is mild splenomegaly. Pancreas: The pancreas is homogeneous in attenuation on these limited noncontrast images. Gall Bladder: The gallbladder is distended with minimal cholelithiasis and sludge. There is no CT evidence for acute cholecystitis. Adrenal glands: The adrenal glands are normal in size and attenuation on these limited noncontrast images. Kidneys: The kidneys are homogeneous in attenuation on these limited noncontrast images. There is no evidence for gross renal mass, calyceal calculus or hydronephrosis bilaterally. There is a 4 mm parenchymal calcification seen on the left. Bowel: The bowel loops are normally placed within the abdomen and pelvis without evidence for dilatation or obstruction. There is no evidence for mass lesion. There is mild sigmoid diverticulosis without evidence for diverticulitis. There is mucosal thickening of the rectum which probably relates to nondistention. However, follow-up is recommended. There are no inflammatory changes present. There is no evidence for free air. The appendix is not visualized. Bladder: The bladder is decompressed and cannot be evaluated. : There is no evidence for pelvic mass or adenopathy. There is moderate prostate enlargement. Vasculature: There is no evidence for focal aneurysmal dilatation of the abdominal aorta. Atherosclerotic calcification is present. Osseous structures: There is no acute osseous pathology. Degenerative changes are present with findings suspicious for lumbar canal stenosis. IMPRESSION: 1. No evidence for obstructing renal calculus 2. The bladder is decompressed and cannot be evaluated. 3. Cholelithiasis with no CT evidence for acute cholecystitis. 4. Mild sigmoid diverticulosis without evidence for diverticulitis. 5. Mucosal thickening of the rectum which is most likely related to decompression. However, follow-up is necessary. 6. Additional nonacute findings are delineated above. ACT 112: Negative or not required by law. CT head/brain wo con Urgent Hospital Course (1) Osteomyelitis: per Dr. Tucker's notes with addendum: 71 yo M w/ PMH of CKD stage IV, uncontrolled diabetes mellitus with peripheral neuropathy, hypertension, SUKHWINDER, and HLD presented 11/12 to our ED at referral of PCP for evaluation of SOB. Patient main concern was shortness of breath which was present for 5 days prior to admission however he was not aware of his left foot infection complicated with necrotic tissue. Pt does have peripheral neuropathy and states no sensation below his knees. 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 - Patient has remained afebrile, hemodynamically stable since admission. on admission, exam with necrotic tissue involving the left fourth and fifth toe and plantar surface of the left foot. - LLE Doppler negative for DVT - LLE arterial duplex positive for hemodynamically significant stenosis in the distal anterior tibial artery and dorsalis pedis artery. - MRI foot and ankle 11/13 shows soft tissues ulcer of lateral forefoot with ce llulitis with OM of fifth metatarsal head and phalanges with soft tissue gas of forefoot ?secondary to direct extension from soft tissue ulcer vs necrotizing fascitis; tenosynovitis of extensor digitorum - s/p left BKA 11/16 by ortho-OR culture from 11/16 with Citrobacter. Discussed with ID Dr. Jansen 11/19. Okay to discontinue vanc and continue cefepime only (1gm IV daily) Cipro is not a good option given his ESRD and Afib being on amio. Prior blood clx with diphtheroids- Blood culture 11/20 negative to date Plan for 2 weeks antibiotics. (until 12/03). Depending on timing of discharge to facility, he may be able to leave with a peripheral IV versus an ultrasound guided one -Stump pain: continue oxycodone, gabapentin held overnight for confusion -stump evaluated by ortho again today and appeared stable. Follow up with ortho after discharge 12/04 weakness improving stable overall completed course of IV Cefepime on 12/03 CBC and BMP in 1 week ff up with Ortho in 1 week- Dr. Jay (2) Atrial fibrillation with RVR, new onset - since 11/15/21, still in rate controlled Afib, asymptomatic. TTE reviewed, no new change. Seen by cardio-transitioned to PO amiodarone. Heparin drip held briefly due to bleeding at stump and permacath site in post op period Bleeding resolved, H/H remains stable. Cleared by Vascular surgery and ortho to resume heparin drip--resumed 11/20. -transitioned to Eliquis 5mg BID with no recurrent bleed -s/p CVN 11/26 Hedge Fund Principal consulted Amiodarone titrated HR controlled 12/04 discharge on: Amiodarone, Metoprolol, Eliquis (3) CKD4 now ESRD - Permacath placed 11/15, had 1st HD 11/15, with subsequent dialysis nephro continue HD per Nephro monitor closely (4) Hypoxia: -CXR and chest clear, stable on 2 L of NC, wean down as tolerated, continue incentive spirometer. S/p 2 U of PRBC transfusion. Anemia and deconditioning likely contributing. - wean off o2 (5) Anemia of CKD: -Hgb 7.5 on presentation (baseline ~ 10.0) and s/p 2 U of PRBC, now Hb >8. Aranesp therapy per nephro. -No further bleeding noted here - Hg 7.9 monitor (6) Diabetes mellitus, type 2: -Hgb A1c 7.8 10/2021; diabetic management per pharmacy. He is requiring much less insulin here than his baseline--> would recommend he be discharged on: Lantus 6 units BID, Novolog Insulin Sliding Scale ACHS (7) Hypothyroidism: -Continue levothyroxine (8) Pulmonary arterial hypertension: - fluid status being managed primarily by dialysis. Lasix discontinued (9) Hypertension- - BP lower now that he is on dialysis. Discontinued amlodipine, losartan, clonidine discontinued. = - monitor 10) Peripheral artery disease LLE- LLE arterial duplex with hemodynamically significant stenosis of distal ant tibial artery and dorsalis pedis artery; Seen by vascular surgery- no intervention needed - continue ASA as per Cardiology Dr. Givens Rectal Mucosal Thickening CT abd/pelvis: Mucosal thickening of the rectum which is most likely related to decompression. However, follow-up is necessary Further work up, management, and ff up as outpatient New left wrist fluid collection, resolving -May be related to lab draw on that side (evidence of venous puncture on his hand/wrist). elevate wrist, apply ice Q shift. -place left arm on limb alert (to save for future dialysis site) - improving BPH with urinary retention -patient makes very little urine but noted with urinary retention several night ago (> 1L removed with straight cath), this was accumulation from prior days. CT A/P noted to have moderately sized prostate. Flomax started. DVT prophylaxis: Shaka Dispo: transition to SNF ff up with PCP in 1 week ff up with Ortho Dr. Jay in 1 week ff up with Hedge Fund Principal in 3-4 weeks Total Time Total Time Spent Total Time Spent (In Minutes): >30 minutes Discharge Plan Discharge Items Patient Disposition: Transfer Halfway Fac Reason For Visit: SEPSIS, OSTEO, EARLENE, ANEMIA Discharge Diagnosis: SEPSIS SECONDARY TO LEFT LOWER FOOT OSTEOMYELITIS S/P BELOW THE KNEE AMPUTATION 11/16/20 ACUTE RENAL FAILURE, NEW DIALYSIS PATIENT ATRIAL FIBRILLATION Activity: As commented below Activity Comment: CONTINUE PT/OT, FALL PRECATION, NON WEIGHTBEARING LEFT LOWER EXT Non-emergency contact: Primary Care Provider and Surgeon Call non-emergency contact if: you have any medication questions, your pain is not controlled, your pain is worsening, your pain is unusual for you, your pain is concerning for you, you have a fever, your temperature is above 101.5, your wound has increased redness and your wound has increased drainage Follow-up/Referrals: Joselito Jay DO [Surgeon] - (follow up in 1 week for wound check) Pedro Jon DO [Primary Care Provider] - Diet: Carb Consistent or DM2, Dialysis Renal and Heart Healthy Addtl Attending Provider Instructions: Novolog Sliding Scale Goal BSG Range: Low 120 mg/dL, High 150 mg/dL Correction Factor: 18 mg/dL/unit Carbohydrate ratio = 12 g/unit BSGs ACHS if eating, q6h if npo Hold if patient's meal intake in <50% PLEASE REFER TO ACCOMPANYING HOSPITAL DISCHARGE SUMMARY FOR FURTHER DETAILS. Addtl Security Assurance Analyst Provider Instructions: Continue to keep the left lower leg elevated when at rest. Ice pack to dressing site as needed Daily dressing changes. Apply adaptic gauze, 4x4's, ABD's, Kelix wrap and Fredrick wrap. You can shower in if you have minimal drainage from the wound. No direct shower pressure to the wound. NO tub baths. DO NOT SOAK the wound. No antibiotic creams for ointment. Follow up with Dr. Jay or his PA in 1 week. Call for an appointment. [phone] Pending Studies at Discharge: Yes Studies:: REPEAT CBC AND BASIC METABOLIC PROFILE IN 1 WEEK. Stand-Alone Forms: My [facility] Skilled Items Patient informed of condition?: Yes DNR: Yes Discharge Level of Care: Skilled Communicable Disease: No Discharge Prognosis: Stable Lines: None Urinary Catheter: No Medications and DC Order Prescriptions: New tamsulosin 0.4 mg Capsule 0.4 mg PO QAM 30 Days Qty: 30 RF: 0 Eliquis 5 mg Tablet 5 mg PO BID 30 Days Qty: 60 RF: 0 ferrous sulfate 325 mg (65 mg iron) Tablet,Delayed Release (Dr/Ec) 325 mg PO BIDM 30 Days Qty: 60 RF: 0 amiodarone 200 mg Tablet 200 mg PO BIDM 30 Days Qty: 60 RF: 0 docusate sodium 100 mg Capsule 100 mg PO BID 30 Days Qty: 60 RF: 0 sennosides [Senokot] 8.6 mg Tablet 17.2 mg PO HS Qty: 30 RF: 0 insulin aspart U-100 [Novolog U-100 Insulin aspart] 100 unit/mL Solution 1 unit SC ACHS Qty: 100 RF: 0 Lantus Solostar U-100 Insulin 100 unit/mL (3 mL) Insulin Pen 6 unit SC BID Qty: 15 RF: 0 oxycodone 5 mg tablet 5 mg PO Q6H PRN (Reason: pain) Qty: 20 RF: 0 Continued (DME) pen needle, diabetic [BD Ultra-Fine Mini Pen Needle] 31 gauge x 3/16" needle See Dose Instructions .ROUTE .MEDSUPPLY Qty: 100 RF: 5 atorvastatin 40 mg tablet 40 mg PO DAILY Qty: 90 RF: 3 diphenoxylate-atropine [Lomotil] 2.5-0.025 mg tablet 1 tab PO QID PRN (Reason: diarrhea) Qty: 60 RF: 5 metoprolol succinate 100 mg tablet extended release 24 hr 100 mg PO QAM Qty: 90 RF: 3 allopurinol 100 mg tablet 50 mg PO DAILY Qty: 45 RF: 0 aspirin [Adult Low Dose Aspirin] 81 mg tablet,delayed release (DR/EC) 81 mg PO DAILY Qty: 90 RF: 3 multivitamin Tablet 1 tab PO DAILY RF: 0 latanoprost 0.005 % drops 1 drp ophthalmic (eye) HS RF: 0 loperamide [Imodium A-D] 2 mg Capsule 2 mg PO Q4H PRN (Reason: Diarrhea) RF: 0 levothyroxine 50 mcg Tablet 50 mcg PO DAILY RF: 0 brimonidine 0.15 % drops 1 drp OPB BID RF: 0 cholecalciferol (vitamin D3) 50 mcg (2,000 unit) Tablet 150 mcg PO DAILY RF: 0 calcitriol 0.5 mcg capsule 0.5 mcg PO BID RF: 0 Discontinued amlodipine 5 mg tablet 5 mg PO DAILY Qty: 30 RF: 11 clonidine HCl 0.1 mg tablet 0.1 mg PO BID Qty: 180 RF: 5 Lantus Solostar U-100 Insulin 100 unit/mL (3 mL) insulin pen 50 unit SQ PM Qty: 15 RF: 0 losartan 50 mg tablet 50 mg PO BID RF: 0 furosemide 40 mg tablet 40 mg PO BID RF: 0 Discharge Orders: Discharge Order (Routine); Ordered 12/04/21 Ordered By: Bharat Galindo/Other Patient Handouts: Nutrition for Wound Healing, Managing Type 2 Diabetes, Special Foot Care for Diabetes Admission Data Admit Date/Time: 11/12/21 12:56 Attending Provider: Bharat Acevedo Admit Provider: Jaun Shrestha Primary Care Provider: Pedro Jon Other Providers: Patricio Hdez ; Raul Chapman ; Navin Wayne ; Marcell Gallego ; Nisha Perez ; Shant Cohen I. ; Jaxon Rodriguez II ; Frieda Cadena ; Kendall Gordon ; Larry Jansen ; Angel Gresham ; Reno Sharp ; Royer Duenas ; En Ott ; David Givens ; Michael Fischer Jr ; Daniel Galvez ; Nena Kim ; Yumiko Ken ; Edgar Onofre ; Raul Hall ; Larry Johnson ; Dorothy Simpson ; Wendy Flores ; Yuri Turner ; Noel Rodríguez ; Meir Mckeon ; Saturnino Blair ; Vinicio Mora ; [facility] ; [facility] Other Interventions: Discharge Summary Assessment (RN) Last Done: 12/04/21 12:30
[2021-12-04 13:27] LABS: Influenza A virus by PCR Negative (Neg); Influenza B virus by PCR Negative (Neg); RSV by PCR Negative (Neg); SARS CoV2 RNA(COVID-19) InHosp NEGATIVE (Negative)
[2021-12-05] MEDS ORDERED: SODIUM CHLORIDE 0.9% 1000ML 1,000 ML IV PRN (07:00)
[2021-12-05] MEDS ORDERED: EPOETIN ALFA 10,000 UNITS/ML VIAL IV SCH (10:00)
== END 2021-12-04 14:12 | DRG 853 ==
LOC: ED 10:22 → SUATTDRO 12:56 → 2S 12:56

== ENCOUNTER 2022-01-11 10:12 | Inpatient (IN) ==
--- NOTE | 2022-01-10 12:43 | Anesthesiology Consultation ---
Date of Service January 10, 2022 Assessment & Plan (1) Encounter for pre-operative examination: Chart Review Chart Review: Acceptable Risk for Surgery (pending Covid test results DOS, PRP and CBC with diff DOS, and anesthesia evaluation DOS ) and Patient NOT seen in Pre Admission Testing -Discussed case with Dr. Howe- patient is last case of the day for Dr. Jay- due to nature of procedure- pt can proceed as scheduled Pt scheduled for dialysis in the morning on DOS (01/11/22)- discussed with Dr. Taylor- recommend that at least 4 hours have passed from dialysis to surgery time. Surgeon's office was informed. Medical necessity from surgeon 01/10/22= "Patient must have surgery tomorrow 01/11/2022. If he does not have surgery 01/11/2022 he is at increased risk of infection, loss of function, loss of limb." (Medically necessity approved by Dr. Taylor) -Check PRP stat AM of surgery (on dialysis), coags (elevated previously), and CBC with diff (due to anemia). Will leave to anesthesiologist discretion DOS if repeat CXR needed DOS - Check BSG AM DOS Per nursing assessment 01/10/2022, pt resides at [facility]. Denies any recent travel. No known Covid positive exposures or Covid related symptoms. No known Covid infection in the past 90 days. Pt is fully vaccinated for Covid. Plan for rapid Covid test DOS due to late day urgent next day add on= will await results. (Cepheid test ordered due to to patient being care home resident, no preop PCR Covid test done, and in case patient gets admitted after procedure) Pt seen by cardio 12/18/21= Patient seen for hospital follow-up. Recently admitted for left foot necrosis, osteomyelitis, EARLENE (now ESRD on HD) and PAF with RVR- s/p cardioversion 11/26/21. Remained in normal sinus rhythm thereafter. Patient continues to recover from left BKA. Currently has PermCath tunneled dialysis catheter and is on HD Mon, Wed, Fri. Patient has not had any recurrent atrial fibrillation to his knowledge. But patient was not symptomatic when hospitalized with A. fib with RVR. Breathing returned to baseline. Reviewed recent echo results. Reviewed EKG done in office today. Continue current medications as prescribed. Reduce amiodarone dose to 200 mg daily after 12/28/2021. Follow-up in 6 months. Cardioversion 11/26/21= done under MAC. No anesthesia issues noted per anesthesia record. Left BKA 11/16/21= Done under GA with Grade 1 view with MAC #4. ETT #7.0. No anesthesia issues noted per anesthesia record. History Surgery Operation Date: 01/11/22 13:35 Proposed Procedures p Left Below Knee Amputation Revision - Joselito Jay DO Height/Weight Height: 5 ft 8 in Weight: 115.241 kg Allergies Allergy/AdvReac Type Severity Reaction Status Date / Time metformin Allergy Intermediate Diarrhea Verified 01/10/22 14:09 isosorbide Allergy Mild Rash Verified 01/10/22 14:09 lisinopril Allergy Unknown Unknown Verified 01/10/22 14:09 Medications Home Medications Medication Instructions Recorded Confirmed Last Taken aspirin 81 mg tablet,delayed 81 mg PO DAILY #90 tab 06/06/20 01/10/22 01/23/21 release (Adult Low Dose Aspirin) pen needle, diabetic 31 gauge x #100 ea 02/22/21 01/10/22 Unknown 3" (BD Ultra-Fine Mini Pen Needle) atorvastatin 40 mg tablet 40 mg PO DAILY #90 tab 06/11/21 01/10/22 Unknown diphenoxylate-atropine 2.5 1 tab PO QID PRN #60 tab 07/10/21 01/10/22 Unknown mg-0.025 mg tablet (Lomotil) brimonidine 0.15 % eye drops 1 drp OPB BID 11/12/21 01/10/22 Unknown calcitriol 0.5 mcg capsule 0.5 mcg PO BID 11/12/21 01/10/22 Unknown latanoprost 0.005 % eye drops 1 drp OPHTHALMIC (EYE) HS 11/12/21 01/10/22 Unknown levothyroxine 50 mcg tablet 50 mcg PO DAILY 11/12/21 01/10/22 Unknown loperamide 2 mg capsule (Imodium 2 mg PO Q4H PRN 11/12/21 01/10/22 Unknown A-D) insulin glargine 100 unit/mL (3 6 unit SC BID #15 ml 12/04/21 01/10/22 Unknown mL) subcutaneous pen (Lantus Solostar U-100 Insulin) allopurinol 100 mg tablet 100 mg PO DAILY 01/10/22 01/10/22 Unknown amiodarone 200 mg tablet 200 mg PO BID 01/10/22 01/10/22 Unknown apixaban 5 mg tablet (Eliquis) 5 mg PO BID 01/10/22 01/10/22 Unknown bisacodyl 10 mg rectal suppository 10 mg IN DAILY PRN 01/10/22 01/10/22 Unknown (Dulcolax (bisacodyl)) cephalexin 500 mg capsule 500 mg PO QID 01/10/22 01/10/22 Unknown docusate sodium 100 mg tablet 100 mg PO BID 01/10/22 01/10/22 Unknown melatonin 5 mg tablet 5 mg PO HS PRN 01/10/22 01/10/22 Unknown metoprolol succinate 100 mg 100 mg PO DAILY 01/10/22 01/10/22 Unknown tablet,extended release 24 hr nut.tx.impaired renal fxn,soy 1 ea PO QPM 01/10/22 01/10/22 Unknown sodium phosphates 19 gram-7 118 ml IN DAILY PRN 01/10/22 01/10/22 Unknown gram/118 mL enema (Fleet Enema) Past Medical History Medical History (Updated 01/10/22 @ 15:26 by Melissa Marti PA-C) Anemia Diabetes mellitus, type 2 Diabetic autonomic neuropathy Diabetic foot ulcer associated with type 2 diabetes mellitus Diabetic retinopathy Dyslipidemia ESRD (end stage renal disease) Dialysis Mon, Wed, Fri Ex-smoker Foot drop RT FOOT (WEARS BRACE) Gait disturbance History of recent blood transfusion (~11/19/21) @ [facility] Hx of gout Hypertension Hypothyroidism Morbid obesity with BMI of 45.0-49.9, adult On home oxygen therapy 2L [place] at all times Osteomyelitis 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 Paroxysmal atrial fibrillation S/p elective electrical cardioversion while admitted to [facility] on 11/26/21 - remained in NSR thereafter per 12/18/21 cardio note Peripheral arterial disease Pulmonary arterial hypertension Mild per 10/2021 ECHO Secondary hyperparathyroidism of renal origin Sleep apnea NO DEVICE CURRENTLY Past Family History Family History Mother Pancreatic cancer Breast cancer Family history of diabetes mellitus Father Myocardial infarction Brother Prostate cancer Other No family history of adverse response to anesthesia Denies family history of Coronary heart disease Colorectal cancer Past Surgical History Surgical History Amputated toe of right foot History of cardioversion (~11/26/21) @ [facility] History of cataract surgery RT/LEFT History of colonoscopy last 01/2021 @ [facility] History of surgery (~11/15/21) Insertion of Perm Catheter, Right Internal Jugular Approach S/P BKA (below knee amputation) unilateral (~11/16/21) left Social History Smoking Status: Former smoker Alcohol Intake Frequency Comment: unknown did not speak with patient Last Used Substance Other:: unknown did not speak with patient Lab Results Anesthesia Preop Results Results Anesthesia Widget: WBC 5.42 K/uL (4.8-10.8) 12/11/21 Hgb 7.8 g/dL (14.0-18.0) L 12/11/21 Hct 26.3 % (42-52) L 12/11/21 Plt 139 K/uL (130-400) 12/11/21 Na 139 mmol/L (136-145) 12/11/21 K 3.8 mmol/L (3.5-5.1) 12/11/21 Cl 99 mmol/L (98-107) 12/11/21 CO2 31 mmol/L (21-32) 12/11/21 BUN 26 mg/dl (6-23) H 12/11/21 Creat 5.33 mg/dl (0.6-1.4) H* 12/11/21 Glucose Level 132 mg/dl (70-99(Fasting)) H 12/11/21 PT 13.8 Seconds (9.0-12.0) H 11/15/21 PTT 38.8 Seconds (21.0-31.0) H 11/23/21 INR 1.3 (0.9-1.1) H 11/15/21 TSH 0.701 uIu/ml (0.300-4.500) 11/15/21 HA1c 7.8 % (4.5-5.6) H 11/13/21 Urine Color Dark Yellow 11/26/21 Urine Appearance Cloudy (Clear) A 11/26/21 Urine pH 5.0 (4.5-7.5) 11/26/21 Urine Specific [place] 1.018 (1.000-1.030) 11/26/21 Urine Protein 2+ (Negative) H 11/26/21 Urine Glucose (UA) Negative (Negative) 11/26/21 Urine Ketones Trace (Negative) H 11/26/21 Urine Blood 2+ (Negative) H 11/26/21 Urine Nitrite Negative (Negative) 11/26/21 Urine Bilirubin Negative (Negative) 11/26/21 Urine Urobilinogen Negative (Negative) 11/26/21 Urine Leukocyte Esterase 1+ (Negative) H 11/26/21 Urine WBC (Auto) >30 /hpf (0-5) H 11/26/21 Urine RBC (Auto) 10-30 /hpf (0-4) H 11/26/21 Urine Hyaline Casts (Auto) 1-5 /lpf (0-5) 11/26/21 Urine Epithelial Cells (Auto) >30 /lpf (0-5) H 11/26/21 Urine Bacteria (Auto) 1+ (Negative) H 11/26/21 Urine Yeast Not Reportable 11/26/21 Blood Type O Positive 11/19/21 Antibody Screen NEGATIVE 11/19/21 Testing Laboratory Results Anemia chronic since November 2021- did receive blood transfusion in November 2021- discussed with Dr. Howe will repeat CBC DOS 11/26/21= URINE CULTURE: No growth Electrocardiogram Date: 12/18/21 SR with 1st degree AVB at 65bpm. Corrected QTc interval 470msec Chest X-Ray Date: 11/16/21 Cardiomegaly with mild central pulmonary vascular congestion without overt edema . Interval development of small right pleural effusion and right basilar airspace opacities. This may represent a pneumonia and could be secondary to aspiration. Right jugular central venous catheter terminates at the SVC. No pneumothorax. Echocardiogram Date: 11/15/21 EF: 55-60% LV Function: normal RWMA: + none Other Findings: + LVH (mild/concentric ) and + diastolic dysfunction (probable ) Mild left atrial dilation Sclerotic AV with mild AR. Mild MR. Mild TR Mild pulm HTN; estimated RVSP 40-45mmHg. Rhythm is atrial fibrillation Compared to prior study on 04/20/2020, rhythm is now atrial fibrillation and RVSP has improved Other Testing Head CT 11/26/21= No acute intracranial hemorrhage, no evidence of acute territorial infarction or other acute intracranial disease process. Duplex Lower Extremity Artery 11/12/21= Hemodynamically significant stenosis is seen most pronounced in the distal anterior tibial artery and dorsalis pedis artery.
--- NOTE | 2022-01-10 16:40 | History & Physical Report ---
Date of Service January 10, 2022 Assessment & Plan (1) Wound dehiscence, surgical: Plan: Schedule a left lower leg revision below-knee amputation for 01/11/2022. All potential risks, benefits, complications, alternatives, and rehab have been discussed with the patient and he wishes to proceed. Will restart aspirin and Eliquis postop for DVT prophylaxis. History of Present Illness Chief Complaint: Left lower leg wound Primary Care Provider: [facility] This is a patient known undergone a left below the knee amputation on November 17, 2021. The wound has been monitored after discharge from the hospital. However, the wound failed to progress. He had wound dehiscence throughout the flap. He is now being set up for revision amputation. Allergies Allergy/AdvReac Type Severity Reaction Status Date / Time metformin Allergy Intermediate Diarrhea Verified 01/10/22 14:09 isosorbide Allergy Mild Rash Verified 01/10/22 14:09 lisinopril Allergy Unknown Unknown Verified 01/10/22 14:09 Home Medications Medication Instructions Recorded Confirmed Type aspirin 81 mg tablet,delayed 81 mg PO DAILY #90 tab 06/06/20 01/10/22 Rx release (Adult Low Dose Aspirin) pen needle, diabetic 31 gauge x #100 ea 02/22/21 01/10/22 Rx 3/16" (BD Ultra-Fine Mini Pen Needle) atorvastatin 40 mg tablet 40 mg PO DAILY #90 tab 06/11/21 01/10/22 Rx diphenoxylate-atropine 2.5 1 tab PO QID PRN #60 tab 07/10/21 01/10/22 Rx mg-0.025 mg tablet (Lomotil) brimonidine 0.15 % eye drops 1 drp OPB BID 11/12/21 01/10/22 History calcitriol 0.5 mcg capsule 0.5 mcg PO BID 11/12/21 01/10/22 History latanoprost 0.005 % eye drops 1 drp OPHTHALMIC (EYE) HS 11/12/21 01/10/22 History levothyroxine 50 mcg tablet 50 mcg PO DAILY 11/12/21 01/10/22 History loperamide 2 mg capsule (Imodium 2 mg PO Q4H PRN 11/12/21 01/10/22 History A-D) insulin glargine 100 unit/mL (3 6 unit SC BID #15 ml 12/04/21 01/10/22 Rx mL) subcutaneous pen (Lantus Solostar U-100 Insulin) allopurinol 100 mg tablet 100 mg PO DAILY 01/10/22 01/10/22 History amiodarone 200 mg tablet 200 mg PO BID 01/10/22 01/10/22 History apixaban 5 mg tablet (Eliquis) 5 mg PO BID 01/10/22 01/10/22 History bisacodyl 10 mg rectal suppository 10 mg MA DAILY PRN 01/10/22 01/10/22 History (Dulcolax (bisacodyl)) cephalexin 500 mg capsule 500 mg PO QID 01/10/22 01/10/22 History docusate sodium 100 mg tablet 100 mg PO BID 01/10/22 01/10/22 History melatonin 5 mg tablet 5 mg PO HS PRN 01/10/22 01/10/22 History metoprolol succinate 100 mg 100 mg PO DAILY 01/10/22 01/10/22 History tablet,extended release 24 hr nut.tx.impaired renal fxn,soy 1 ea PO QPM 01/10/22 01/10/22 History sodium phosphates 19 gram-7 118 ml MA DAILY PRN 01/10/22 01/10/22 History gram/118 mL enema (Fleet Enema) Past Med/Surg History Medical History Anemia Diabetes mellitus, type 2 Diabetic autonomic neuropathy Diabetic foot ulcer associated with type 2 diabetes mellitus Diabetic retinopathy Dyslipidemia ESRD (end stage renal disease) Dialysis Mon, Wed, Fri Ex-smoker Foot drop RT FOOT (WEARS BRACE) Gait disturbance History of recent blood transfusion (~11/19/21) @ [facility] Hx of gout Hypertension Hypothyroidism Morbid obesity with BMI of 45.0-49.9, adult On home oxygen therapy 2L [place] at all times Osteomyelitis 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 Paroxysmal atrial fibrillation S/p elective electrical cardioversion while admitted to [facility] on 11/26/21 - remained in NSR thereafter per 12/18/21 cardio note Peripheral arterial disease Pulmonary arterial hypertension Mild per 10/2021 ECHO Secondary hyperparathyroidism of renal origin Sleep apnea NO DEVICE CURRENTLY Surgical History Amputated toe of right foot History of cardioversion (~11/26/21) @ [facility] History of cataract surgery RT/LEFT History of colonoscopy last 01/2021 @ [facility] History of surgery (~11/15/21) Insertion of Perm Catheter, Right Internal Jugular Approach S/P BKA (below knee amputation) unilateral (~11/16/21) left Family History Mother Pancreatic cancer Breast cancer Family history of diabetes mellitus Father Myocardial infarction Brother Prostate cancer Other No family history of adverse response to anesthesia Denies family history of Coronary heart disease Colorectal cancer Social History Smoking Status: Former smoker Second Hand Exposure: No; Preferred Language: Malian Communication Ability: Effective Hearing Ability: Normal Acquisition Editor Required: No Beliefs That Will Affect Care: None marital status: Single Current Living Situation: Personal Care Facility Current Living Situation Comment: residing in [place] [facility] current occupational status: disabled How many Children do You have: 0 Other Information That Helps Us Care for You: No Childhood Exposure to Second-Hand Smoke: No caffeine: No during the past year weight has: remained stable Dental Care, Regularly: Yes Physical Activity Frequency: Does not Exercise Seatbelt Use: always Sunscreen Use: No Assistive Devices: Oxygen - Continuous and Wheelchair Physical Exam Constitutional: well developed and well nourished; no acute distress ENMT: external ear and nose normal, oropharynx normal Neck: trachea midline Respiratory: normal respiratory effort and + respiratory distress Auscultation: lungs clear to auscultation bilaterally Cardiovascular: Rate/Rhythm: regular rate and regular rhythm Gastrointestinal (Abdomen): normal bowel sounds, soft, nontender, no hepatosplenomegaly Musculoskeletal: Left BKA: Wound dehiscence at the central portion of the wound. Mild erythema. Moderate drainage. Neurologic: + abnormal touch/pain/proprioception Psychiatric: A+Ox3, euthymic affect Speech: normal rate/rhythm/volume of speech
[~2022-01-11 10:12] MED LIST changes: -ASPEC81 PO; -ATOR-24 PO; -CHOL200027 PO; -INSDGI SC; -LOSA25TA18 PO; -LSX/40 PO; -METO100T44 PO; -MULT-506 PO; +SODIUM CHLORIDE 0.9% 1000ML IV SCH
--- NOTE | 2022-01-11 11:31 | History & Physical Bridge Note ---
Date of Service January 11, 2022 History & Physical Bridge Note I have examined the patient, reviewed the History & Physical and in the interval since the performance of the History & Physical I have noted the following changes of clinical significance: no changes noted
[2022-01-11 11:53] LABS: Basophils # (auto) 0.01 K/uL (0-0.2); Basophils % (auto) 0.2 %; Eosinophils # (auto) 0.18 K/uL (0-0.5); Eosinophils % (auto) 3.2 %; Hematocrit (blood only) 22.7 % (42-52); Hemoglobin 7.2 g/dL (14.0-18.0); Immature Granulocytes # (auto) 0.02 K/uL (0.00-0.02); Immature Granulocytes % (auto) 0.4 %; Lymphocytes # (auto) 1.64 K/uL (1.2-3.4); Lymphocytes % (auto) 29.6 %; Mean Corpuscular Hemoglobin 30.1 pg (25-34); Mean Platelet Volume 9.5 fL (7.4-10.4); Monocytes # (auto) 0.37 K/uL (0.11-0.59); Monocytes % (auto) 6.7 %; Neutrophils # (auto) 3.32 K/uL (1.4-6.5); Neutrophils % (auto) 59.9 %; Platelet Count 127 K/uL (130-400); RDW Coefficient of Variation 16.6 % (11.5-14.5); RDW Standard Deviation 58.6 fL (36.4-46.3); Red Blood Count 2.39 M/uL (4.7-6.1); White Blood Count 5.54 K/uL (4.8-10.8)
[2022-01-11 11:56] LABS: Influenza A virus by PCR Negative (Neg); Influenza B virus by PCR Negative (Neg); RSV by PCR Negative (Neg); SARS CoV2 RNA(COVID-19) InHosp NEGATIVE (Negative)
[2022-01-11 11:57] LABS: Mean Corpuscular Hgb Conc 31.7 g/dL (32-36)
[2022-01-11 12:04] LABS: INR 1.1 (0.9-1.1); Partial Thromboplastin Ratio 1.1; Partial Thromboplastin Time 31.2 Seconds (21.0-31.0); Prothrombin Time 11.9 Seconds (9.0-12.0)
[2022-01-11 12:11] LABS: Hypochromasia Present
[2022-01-11 12:24] LABS: BUN Creatinine Ratio 6.3 (10-20); Calcium 8.7 mg/dl (8.5-10.1); Creatinine Clr Calc Pharmacy 28.2 ml/min; Est GFR (African American) 23.4 ml/min; Est GFR (Non-African American) 20.2 ml/min; Potassium 3.6 mmol/L (3.5-5.1)
[2022-01-11] MEDS ORDERED: MIDAZOLAM HCL 1 MG/ML 2ML VIAL ONE (14:17)
[2022-01-11] MEDS ORDERED: fentaNYL citrate 100 MCG/2 ML VIAL ONE ×2 (14:17→16:46)
[2022-01-11] MEDS ORDERED: GLYCOPYRROLATE 0.2 MG/ML VIAL ONE (14:32)
[2022-01-11] MEDS ORDERED: KETAMINE 50 MG/5 ML SYRINGE ONE (14:33)
[2022-01-11] MEDS ORDERED: ROPIVACAINE 0.5% 5 MG/ML 30 ML VIAL ONE (14:44)
[2022-01-11] MEDS ORDERED: ONDANSETRON INJ 2 MG/ML 2 ML VIAL IV PRN ×2 (15:31→18:22)
[2022-01-11] MEDS ORDERED: ePHEDrine sulfate 50 MG/ML AMP IV PRN (15:31)
[2022-01-11] MEDS ORDERED: fentaNYL citrate 100 MCG/2 ML VIAL IV PRN (15:31)
[2022-01-11] MEDS ORDERED: ATROPINE SULFATE 0.1 MG/ML 10ML SYR IV PRN (15:31)
[2022-01-11] MEDS ORDERED: PROMETHAZINE HCL 6.25 MG in SODIUM CHLORIDE 0.9% 50 ML IV PRN (15:31)
[2022-01-11] MEDS ORDERED: ONDANSETRON INJ 2 MG/ML 2 ML VIAL ONE (15:44)
[2022-01-11] MEDS ORDERED: LIDOCAINE 2% 2 ML VIAL/AMP(20MG/ML) INFIL ONE (15:44)
[2022-01-11] MEDS ORDERED: PROPOFOL IV EMULSION 10 MG/ML 20 ML VIAL IV ONE ×2 (15:44→16:37)
[2022-01-11] MEDS ORDERED: DEXAMETHASONE SOD INJ 4 MG/ML VIAL ONE (15:44)
[2022-01-11] MEDS ORDERED: ePHEDrine sulfate 50 MG/ML AMP ONE (15:47)
[2022-01-11] MEDS ORDERED: ceFAZolin 330 MG/ML 1 GM VIAL ONE (16:07)
[2022-01-11] MEDS ORDERED: PHENYLEPHRINE 100MCG/ML 5ML SYR ONE (16:37)
--- NOTE | 2022-01-11 17:01 | Post Operative Brief Note ---
Immediate Post Op Note v1 Date of Surgery January 11, 2022 Pre & Post Diagnosis Operation Date: 01/11/22 14:55 Pre-Op Diagnosis: Left distal lower extremity nonhealing ulcerations, wound dehiscence left lower extremity amputation stump, infectious tenosynovitis peroneals, myonecrosis peroneal muscles Post-Op Diagnosis: Left distal lower extremity nonhealing ulcerations, wound dehiscence left lower extremity amputation stump, infectious tenosynovitis peroneals, myonecrosis peroneal muscles I identified the patient and participated in the time-out.: Yes Procedure Operation Date: 01/11/22 14:55 Actual Procedures p Left Below Knee Amputation Revision including skin, dermis, fascia, muscle, periosteum and bone, irrigation debridement wound dehiscence left lower extremity amputation stumpBrajacob Jay DO Surgeon Joselito Jay DO Mold Technician Raffy Vazquez PA-C Estimated Blood Loss 20 Findings Consistent with Post-Op Diagnosis Specimens Aerobic, anaerobic, Gram stain left BKA stump Bone and tissue left BKA revision Drains Hemovac Drain (i/8" dual drain) Anesthesia Type General Regional Complications none Disposition Accompanied Patient To Recovery: No Overlapping Procedure I was present for: the critical portions of procedure. I was immediately available: during the entire case.
--- NOTE | 2022-01-11 17:41 | Anesthesiology Progress Note ---
Date of Service January 11, 2022 Anesthesia Post Procedure Vital Signs Vital Signs: Temp Pulse Pulse Resp BP Pulse Ox 01/11/22 17:35 36.8 C 77 20 109/57 L 95 01/11/22 17:25 76 17 108/53 L 95 01/11/22 17:15 74 14 100/57 L 94 01/11/22 17:06 36.7 C 76 14 96/57 L 93 01/11/22 11:53 37.2 C 67 20 123/72 100 Transfer of Care Handoff Completed per policy Notes Mental Status: alert / awake / arousable Patient Amnestic to Procedure: Yes Nausea / Vomiting: adequately controlled Pain: adequately controlled Airway Patency, RR, SpO2: stable & adequate BP & HR: stable & adequate Hydration State: stable & adequate Anesthetic Complications: no major complications apparent
[2022-01-11] MEDS ORDERED: HYDROmorphone INJ 0.5 MG/0.5 ML SYR IV PRN (18:22)
[2022-01-11] MEDS ORDERED: DIPHENOXYLATE/ATROPINE 2.5/0.025MG TAB PO PRN (18:22)
[2022-01-11] MEDS ORDERED: LOPERAMIDE HCL 2 MG CAP PO PRN (18:22)
[2022-01-11] MEDS ORDERED: NALOXONE HCL 0.4 MG/1 ML VIAL/CARP IV PRN (18:22)
[2022-01-11] MEDS ORDERED: SOD PHOSPHATE/SOD BIPHOSPHATE ENEMA 132 ML BTL PR PRN (18:22)
[2022-01-11] MEDS ORDERED: bisacodyL 10 MG SUPP PR PRN (18:22)
[2022-01-11] MEDS ORDERED: SODIUM CHLORIDE 0.9% 1000ML 1,000 ML IV SCH (18:22)
--- NOTE | 2022-01-11 18:45 | Consultation ---
Date of Consultation January 11, 2022 Assessment & Plan (1) S/P BKA (below knee amputation): (2) Wound dehiscence, surgical: Post op day# 0 S/P revision left BKA by Dr Pierre VALDEZ# 20ml pain management per ortho wound management per ortho PT/OT as appropriate DVT prophylaxis per ortho incentive spirometry monitor H&H for acute blood loss anemia; pre-op Hgb: 7.2 Gentle IVF, will reduce to 60ml/hr for 1 L post op CBC, BMP in am (3) Chronic anemia: Anemia chronic disease Today pre-op Hgb: 7.2. Was 7.8 on 12/11/2021. Nephrology had recommended transfusion 1 unit PRBC if Hgb less than 7.5 in past Transfuse 1 unit PRBC Monitor H&H (4) ESRD (end stage renal disease): HD on Friday schedule Last HD this morning, 01/11/2022 Nephrology consult for assistance with HD (5) Diabetes mellitus, type 2: A1c: 7.8 on 11/13/2021 Basal bolus insulin per protocol (6) Paroxysmal atrial fibrillation: Current sinus rhythm with auscultation Continue amiodarone, Eliquis, metoprolol succinate (7) Hypertension: Continue current metoprolol succinate Previously on other BP medications however since started dialysis is not required (8) Peripheral arterial disease: Continue aspirin, atorvastatin (9) Hypothyroidism: Continue levothyroxine (10) SUKHWINDER (obstructive sleep apnea): Does not use CPAP DVT Prophylaxis -On Eliquis Disposition per primary team Pt was seen and care coordinated with Dr Preciado. See addendum Thank you for this consultation. We will follow the patient with you during their hospital stay. You can reach a member of the [facility]ist Team 10/03 via [facility] Supervising Physician Co-Signing Physician Notes Patient is a 71-year-old male with history of diabetes mellitus, end-stage renal disease on hemodialysis, hypertension, paroxysmal atrial fibrillation on chronic anticoagulation with Eliquis and other medical problems was consulted for postop medical management after having left below-knee amputation revision by Dr. Jay. Patient is doing well postoperatively. He denies any significant pain at surgical site. Also denies any chest pain, shortness of breath, dizziness, nausea, abdominal pain. Patient had left BKA in November for osteomyelitis of left foot. He was treated with IV daptomycin and cefepime and later transitioned to IV cefepime alone. On exam patient is obese, no apparent distress, normocephalic atraumatic, EOMI, normal breath sounds, clear to auscultation, S1- S2, no murmur, no pedal edema, abdomen soft, nontender, normal bowel sounds, left lower extremity S/P BKA in dressing,+ drain, alert, awake, oriented, grossly no focal deficits. Blood work showed hemoglobin 7.2, WBC 5.54, hemat ocrit 22.7, platelet count 127K, sodium 137, potassium 3.6, chloride 97, creatinine 3.01, glucose 93, calcium 8.7. Wound cultures pending. Patient is consulted for postop medical management. s/p left BKA for wound dehiscence. Will start on broad-spectrum antibiotics daptomycin, Zosyn. Hold statin while on daptomycin. Follow-up cultures and adjust antibiotics as needed. Incentive spirometer. Pain control. On Eliquis for DVT prophylaxis. Bowel regimen to prevent constipation. Plan to give 1 unit PRBC given postoperative acute blood loss anemia. Monitor CBC. Continue insulin for diabetes management. Nephrology consulted to assist with dialysis. I personally reviewed the record. Patient is interviewed and examined at bedside. Patient's care is coordinated with Xi Martel PA-C. Please refer to the documentation above for details of patient's presentation and for discussion of other issues. History of Present Illness Requesting Physician: Dr Jay Reason for Consultation: Post op medical management Attending Physician: Joselito Jay DO History of Present Illness Patient is 71 y/o M with PMH insulin dependent DM II, ESRD, HTN, pulmonary hypertension, paroxysmal atrial fibrillation, SUKHWINDER, diabetic neuropathy seen in medical consultation s/p revision L BKA today by Dr Jay. Patient with history diabetic foot ulcer with cellulitis with acute osteomyelitis of left foot undergoing left BKA on 11/16/21 and OR wound culture with Citrobacter. Patient was initially treated with daptomycin and cefepime during that admission and transitioned to cefepime and completed on 12/03/21. Patient reports was on oral antibiotic recently for left leg. He has had subsequent wound dehiscence and today had revision BKA by Dr Jay. Wound culture obtained and pending. Patient reports urinates small amount once a day. Has dialysis on Mon, Wed, Fri schedule and had HD this morning. Post op patient reports doing well. Denies fever/chills, N/V/D/C, SCHMID, dizziness, syncope, vision changes, neck pain, CP, SOB, palpitations, cough, sore throat, choking, otalgia, rhinorrhea, abdominal pain, paresthesias, weakness, rashes, urinary symptoms. Allergies Allergy/AdvReac Type Severity Reaction Status Date / Time metformin Allergy Intermediate Diarrhea Verified 01/11/22 11:38 isosorbide Allergy Mild Rash Verified 01/11/22 11:38 lisinopril Allergy Unknown Unknown Verified 01/11/22 11:38 Home Medications Medication Instructions Recorded Confirmed Type aspirin 81 mg tablet,delayed 81 mg PO DAILY #90 tab 06/06/20 01/11/22 Rx release (Adult Low Dose Aspirin) pen needle, diabetic 31 gauge x #100 ea 02/22/21 01/10/22 Rx 3/16" (BD Ultra-Fine Mini Pen Needle) atorvastatin 40 mg tablet 40 mg PO DAILY #90 tab 06/11/21 01/11/22 Rx diphenoxylate-atropine 2.5 1 tab PO QID PRN #60 tab 07/10/21 01/11/22 Rx mg-0.025 mg tablet (Lomotil) brimonidine 0.15 % eye drops 1 drp OPB BID 11/12/21 01/11/22 History calcitriol 0.5 mcg capsule 0.5 mcg PO BID 11/12/21 01/11/22 History latanoprost 0.005 % eye drops 1 drp OPHTHALMIC (EYE) HS 11/12/21 01/11/22 History levothyroxine 50 mcg tablet 50 mcg PO DAILY 11/12/21 01/11/22 History loperamide 2 mg capsule (Imodium 2 mg PO Q4H PRN 11/12/21 01/11/22 History A-D) insulin glargine 100 unit/mL (3 6 unit SC BID #15 ml 12/04/21 01/11/22 Rx mL) subcutaneous pen (Lantus Solostar U-100 Insulin) amiodarone 200 mg tablet 200 mg PO BID 01/10/22 01/11/22 History apixaban 5 mg tablet (Eliquis) 5 mg PO BID 01/10/22 01/11/22 History bisacodyl 10 mg rectal suppository 10 mg OR DAILY PRN 01/10/22 01/11/22 History (Dulcolax (bisacodyl)) cephalexin 500 mg capsule 500 mg PO QID 01/10/22 01/11/22 History docusate sodium 100 mg tablet 100 mg PO BID 01/10/22 01/11/22 History melatonin 5 mg tablet 5 mg PO HS PRN 01/10/22 01/11/22 History metoprolol succinate 100 mg 100 mg PO DAILY 01/10/22 01/11/22 History tablet,extended release 24 hr nut.tx.impaired renal fxn,soy 1 ea PO QPM 01/10/22 01/11/22 History sodium phosphates 19 gram-7 118 ml OR DAILY PRN 01/10/22 01/11/22 History gram/118 mL enema (Fleet Enema) allopurinol 100 mg tablet 100 mg PO DAILY 01/11/22 01/11/22 History Patient History Medical History Anemia Diabetes mellitus, type 2 Diabetic autonomic neuropathy Diabetic foot ulcer associated with type 2 diabetes mellitus Diabetic retinopathy Dyslipidemia ESRD (end stage renal disease) Dialysis Fri, Fri, Fri Ex-smoker Foot drop RT FOOT (WEARS BRACE) Gait disturbance History of recent blood transfusion (~11/19/21) @ [facility] Hx of gout Hypertension Hypothyroidism Morbid obesity with BMI of 45.0-49.9, adult On home oxygen therapy 2L N/C at all times Osteomyelitis 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 Paroxysmal atrial fibrillation S/p elective electrical cardioversion while admitted to [facility] on 11/26/21 - remained in [facility] thereafter per 12/18/21 cardio note Peripheral arterial disease Pulmonary arterial hypertension Mild per 10/2021 ECHO Secondary hyperparathyroidism of renal origin Sleep apnea NO DEVICE CURRENTLY Surgical History Amputated toe of right foot History of cardioversion (~11/26/21) @ [facility] History of cataract surgery RT/LEFT History of colonoscopy last 01/2021 @ [facility] History of surgery (~11/15/21) Insertion of Perm Catheter, Right Internal Jugular Approach S/P BKA (below knee amputation) unilateral (~11/16/21) left Family History Mother Pancreatic cancer Breast cancer Family history of diabetes mellitus Father Myocardial infarction Brother Prostate cancer Other No family history of adverse response to anesthesia Denies family history of Coronary heart disease Colorectal cancer Social History Smoking Status: Never smoker Second Hand Exposure: No; Preferred Language: Mohawk Communication Ability: Effective Hearing Ability: Normal Supervisor Hide House Required: No Beliefs That Will Affect Care: None marital status: Single Current Living Situation: Alone Current Living Situation Comment: residing in [facility] current occupational status: disabled How many Children do You have: 0 Other Information That Helps Us Care for You: No Feels Safe at Home: Yes Childhood Exposure to Second-Hand Smoke: No caffeine: No during the past year weight has: remained stable Dental Care, Regularly: Yes Physical Activity Frequency: Does not Exercise Seatbelt Use: always Sunscreen Use: No Assistive Devices: Oxygen - Continuous Review of Systems Review of Systems: All systems reviewed & are unremarkable except as noted in HPI & below Physical Exam Physical Exam: General: no distress, obese Head: normocephalic, atraumatic Eyes: conjunctiva non-injected, anicteric ENT: normal inspection external ears, nose, mucous membranes moist Neck: supple, trachea midline Lungs: clear, no respiratory distress, no wheezing/rhonchi/rales CV: RRR, no murmur, no pretibial edema Abd: normal BS, soft, non-tender Ext: RLE no erythema, +skin discoloration lower leg, no calf tenderness. LLE: +BKA distal aspect leg with surgical dressing in place and is dry Neuro: A&O x 3, no focal deficits noted, normal affect Skin: warm, dry Results & Data ([facility]) Vital Signs (Past 12 Hours) Vital Signs Temp Pulse Pulse Resp BP Pulse Ox 01/11/22 17:35 36.8 C 77 20 109/57 L 95 01/11/22 17:25 76 17 108/53 L 95 01/11/22 17:15 74 14 100/57 L 94 01/11/22 17:06 36.7 C 76 14 96/57 L 93 01/11/22 11:53 37.2 C 67 20 123/72 100 Laboratory Results Short CBC 01/11/22 Range/Units 11:36 WBC 5.54 (4.8-10.8) K/uL Hgb 7.2 L (14.0-18.0) g/dL Hct 22.7 L (42-52) % Plt Count 127 L (130-400) K/uL BMP 01/11/22 11:36 Sodium 137 Potassium 3.6 Chloride 97 L Carbon Dioxide 33 H BUN 19 Creatinine 3.01 H Glucose 93 Calcium 8.7 (1) Hypertension Hypertension type: essential hypertension Qualified Code(s): I10 - Essential (primary) hypertension
[2022-01-11] MEDS ORDERED: SODIUM CHLORIDE 0.9% 250 ML IV PRN (18:48)
[2022-01-11] MEDS ORDERED: CONSULT PHARMACY STA (18:48)
[2022-01-11] MEDS ORDERED: GLUCOSE 40% GEL 15 GM TUBE PO PRN (18:53)
[2022-01-11] MEDS ORDERED: GLUCAGON FOR INJ 1 MG VIAL SQ PRN (18:53)
[2022-01-11] MEDS ORDERED: GLUCOSE 10 TABS/TUBE PO PRN (18:53)
[2022-01-11] MEDS ORDERED: DEXTROSE 50% 50 ML SYRINGE IV PRN (18:53)
[2022-01-11] MEDS ORDERED: PIPERACILL/TAZOBAC CONSULT ACTIVE PRN (19:22)
[2022-01-11] MEDS ORDERED: PIPERACILLIN/TAZOBACTAM 4.5 GM in DEXTROSE 5% 100 ML IV ONE (19:30)
[2022-01-11] MEDS: DAPTOmycin 525 MG in SYRINGE 0 ML IV SCH (20:51)
[2022-01-11] MEDS: INSULIN ASPART PER UNIT SC SCH (21:07)
--- NOTE | 2022-01-11 21:09 | Operative Report (OR) ---
DATE OF PROCEDURE: 01/11/2022 PREOPERATIVE DIAGNOSES: 1. Left distal lower extremity nonhealing ulcerations. 2. Wound dehiscence, left lower extremity amputation stump. 3. Infectious tenosynovitis of the peroneals. 4. Myonecrosis of the peroneal muscles. POSTOPERATIVE DIAGNOSES: 1. Left distal lower extremity nonhealing ulcerations. 2. Wound dehiscence, left lower extremity amputation stump. 3. Infectious tenosynovitis of the peroneals. 4. Myonecrosis of the peroneal muscles. PROCEDURES PERFORMED: 1. Left below-knee amputation revision including skin, dermis, fascia, muscle, periosteum and bone. 2. Irrigation and debridement, wound dehiscence, left lower extremity amputation stump. SURGEON: Joselito Jay DO. ENRICHMENT DIRECTOR: Raffy Vazquez PA-C who was present for patient positioning, sterile prep and drape, management of retractors and instruments. He was present through the critical portions of the case i ncluding wound closure, application of sterile dressing and transport of the patient to recovery. ANESTHESIA: General, regional. SPECIMENS: 1. Bone and tissue, left revision below-knee amputation. 2. Aerobic, anaerobic, Gram stain -- deep soft tissue, left lower extremity. DRAINS: A 10-Kinyarwanda Hemovac x2. COMPLICATIONS: None. BLOOD LOSS: 20 mL. PERTINENT HISTORY: This is a 71-year-old gentleman previously undergone a left below-knee amputation . He had an uneventful course of healing; however, in the last 2 weeks, the patient was noted to hav e delayed healing of the distal stump with worsening loss of superficial skin, which then turned into a tracking revealing the left peroneal muscle portion of the flap and tendon on the lateral aspect o f the amputation stump. Conservative management, wound care was attempted; however, this failed. He was seen in the clinic yesterday with a tunneling lesion measuring approximately 4 cm deep down to t he level of the distal stump and bone, and the patient was then scheduled for surgery as indicated. All potential risks, benefits, complications, alternatives, rehab potential for incomplete relief of symptoms, need for further surgery, DVT, PE, , persistent pain, swelling, scarring, weakness, ne urovascular injury, wound complications, need for further revision were discussed with the patient. The patient decided to proceed with the procedure as indicated. DESCRIPTION OF PROCEDURE: The patient was taken to the operative suite after regional anesthetic was induced. The patient was anesthetized, LMA was placed. Tourniquet was placed high on the left thig h over cast padding. Left lower extremity was sterilely prepped and draped in the usual sterile fash ion, elevated, and tourniquet inflated to 350 mmHg. There is no exsanguination due to the nature of the myonecrosis and tenosynovitis present. Next, after surgical timeout was performed, a 10 blade scalpel was then used to debride the regions o f the stump that had necrosis including skin, dermis, fascia, muscle, periosteum, and then the distal bone was then skeletonized using 10 blade scalpel and the deep tissue was then cultured, aerobic, an aerobic, Gram stain at the site of the myonecrosis and tenosynovitis of the peroneal tendons. Next, a full-thickness incision was made across the anterior aspect of the distal lower extremity jus t proximal to the previous suture line and then a small ellipse of tissue was then sharply excised an d the posterior distal flap was then revised with a 10 blade scalpel to freshen all edges. Areas of debris and necrosis were sharply excised including skin, subQ and dermis. Next, the flap was then fu lly revised to reflect a stable contiguous flap construct and then the Castelan elevator was used to stri p the periosteum from around the tibia and this was shortened by approximately 1.5 cm to get a proper margin away from the distal aspect of the bone from a freshened stump. After the distal aspect of t he tibia was removed, the anterior distal portion was bevelled with the sagittal saw and then smoothe d with a bone rasp. The fibula was also shortened slightly by approximately 10 mm. Next, a pulse la vage 3 liters with sterile saline and Ancef was then used to lavage the site until clear. Next, top gloves and top sheet were changed and then the deep fascia was closed using buried interrup yuri #1 Vicryl. The superficial fascia was closed using buried interrupted #1 medial and lateral and then the dermis was closed using buried interrupted 2-0 Vicryl. Skin closed with a combination of 2- 0 nylon and skin sia. 10-Kinyarwanda Hemovac drains x2 were placed deep within the revised stump exi ting proximal medial and proximal lateral. Sterile compressive dressing was applied, overwrapped wit h Fredrick wraps x2. The tourniquet was released. The patient was awakened and taken to recovery in stab le condition. Job ID: [id number]
[2022-01-11] MEDS: oxyCODONE HCL IR 5 MG TAB (IMMEDIATE RELEASE) PO PRN (21:20)
[2022-01-11] MEDS: AMIODARONE 200 MG TAB PO SCH (21:21)
[2022-01-11] MEDS: BRIMONIDINE TARTRATE-P 0.15% 5 ML BTL OPB SCH (21:21)
[2022-01-11] MEDS: CALCITRIOL 0.25 MCG CAPSULE PO SCH (21:22)
[2022-01-11] MEDS: LATANOPROST 0.005% OP SOLN 2.5 ML BTL OP SCH (21:23)
[2022-01-11] MEDS: NUT TX IMPAIRED RENAL FXN SOY PO SCH (21:24)
[2022-01-11] MEDS: DOCUSATE SODIUM 100 MG CAP PO SCH (21:25)
[2022-01-11] MEDS: INSULIN GLARGINE SOLOSTAR 100 UNITS/ML 3 ML PEN SC SCH (21:58)
[2022-01-11] MEDS: ACETAMINOPHEN 500 MG TAB PO SCH (22:01)
[2022-01-11] MEDS ORDERED: ceFAZolin 2000MG 2,000 MG/15 ML SYR IV SCH (23:15)
[2022-01-12] MEDS: PIPERACILLIN/TAZOBACTAM 4.5 GM in DEXTROSE 5% 100 ML IV SCH ×2 (04:18→17:31)
[2022-01-12] MEDS: oxyCODONE HCL IR 5 MG TAB (IMMEDIATE RELEASE) PO PRN ×3 (04:18→20:18)
[2022-01-12] MEDS: LEVOTHYROXINE SODIUM 50 MCG TABLET PO SCH (06:09)
[2022-01-12] MEDS: ACETAMINOPHEN 500 MG TAB PO SCH ×3 (06:10→22:12)
[2022-01-12] MEDS: MULTIVITAMIN TAB PO SCH (08:06)
[2022-01-12] MEDS: allopurinoL 100 MG TAB PO SCH (08:06)
[2022-01-12] MEDS: CALCITRIOL 0.25 MCG CAPSULE PO SCH ×2 (08:06→21:38)
[2022-01-12] MEDS: METOPROLOL SUCC 50MG EXT REL TAB PO SCH (08:08)
[2022-01-12] MEDS: AMIODARONE 200 MG TAB PO SCH ×2 (08:08→21:38)
[2022-01-12] MEDS: APIXABAN 5 MG TABLET PO SCH ×2 (08:08→21:39)
[2022-01-12] MEDS: ASPIRIN 81 MG ECTAB PO SCH (08:08)
[2022-01-12] MEDS: DOCUSATE SODIUM 100 MG CAP PO SCH ×2 (08:09→21:38)
[2022-01-12] MEDS: BRIMONIDINE TARTRATE-P 0.15% 5 ML BTL OPB SCH ×2 (08:10→21:37)
[2022-01-12] MEDS: INSULIN GLARGINE SOLOSTAR 100 UNITS/ML 3 ML PEN SC SCH ×2 (08:13→21:45)
[2022-01-12] MEDS: INSULIN ASPART PER UNIT SC SCH ×4 (08:21→21:45)
--- NOTE | 2022-01-12 08:31 | Nephrology Progress Note ---
Date of Service January 12, 2022 Assessment & Plan (1) ESRD (end stage renal disease): Plan: * ESKD on HD. Volume status and electrolyte balance are acceptable. No acute indication for HD today. Will maintain MWF outpatient schedule (2) Hypertension: Plan: * Requires Metoprolol for rate control of atrial fibrillation (3) Anemia: Plan: * Hgb has dropped to 6.9 following surgery * Recommend transfusion to maintain Hgb > 8.0 Admission and Anticipated Discharge Date Admission Date: January 11, 2022 Subjective Mr. Arias is a 71 year old white male who is seen at the request of [facility] Hospitalist Service to provide HD during his hospitalization and assist w/ medical care. Medical records in the EMR were reviewed today and are summarized as follows: Mr. 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 He declined AVF creation as an outpatient because he has fecal incontinence and was uncertain whether he could get through the procedure. In late October 2021 Mr. Arias was admitted to [facility] for evaluation of an infected ulcer and ischemia of the L foot. He was found to be in kidney failure. 11/15/21 he underwent IJ TCC insertion and 1st run HD. On 11/17/21 he required L BKA. Following discharge from [facility] 12/04/21 Mr. Arias has been a resident at [facility]. He has been receiving HD MWF and was last dialyzed yesterday morning. Mr. Arias was readmitted to [facility] 01/11/22 and underwent surgical revision of his L BKA site. He currently voices no medical concerns. PMH: ESKD on HD, atrial fibrillation, hypothyroidism, HTN, anemia, PVD s/p L BKA 12/07, gout, obesity, SUKHWINDER, and AODM complicated by retinopathy Review of Systems Constitutional: no fever Eyes: no worsening vision Ear, Nose, Mouth, Throat: no problem reported Respiratory: no cough and no dyspnea Cardiovascular: no chest pain, no palpitations and no edema Gastrointestinal: no abdominal pain Neurologic: no confusion Physical Exam Constitutional: + morbidly obese Eyes: PERRL, conjunctivae normal, anicteric sclerae ENMT: external ear and nose normal, oropharynx normal Neck: trachea midline, no thyromegaly R IJ TCC with clean dry dressing Respiratory: normal respiratory effort, lungs clear to auscultation Cardiovascular: Rate/Rhythm: regular rate and regular rhythm Gastrointestinal (Abdomen): normal bowel sounds, soft, nontender, no hepatosplenomegaly Musculoskeletal: L BKA site w/ clean dry dressing Neurologic: awake; not confused Results & Data ([facility]) Vital Signs (Past 12 Hours) Vital Signs Temp Pulse Pulse Resp BP BP Pulse Ox 01/12/22 07:06 36.8 C 69 17 103/58 L 100 01/12/22 04:12 37.0 C 74 18 120/56 L 98 01/11/22 23:58 37 C 77 18 102/54 L 96 01/11/22 23:25 36.9 C 77 18 105/52 L 100 01/11/22 22:30 36.9 C 76 18 110/58 L 95 01/11/22 22:00 37 C 77 18 112/62 96 01/11/22 21:27 37.1 C 82 18 112/64 97 01/11/22 21:13 37 C 77 18 98/57 L 98 01/11/22 20:56 37.1 C 76 18 111/59 L 98 Laboratory Results Laboratory Tests 12/01/21 08:06 Sodium 135 L Potassium 4.3 Chloride 102 Carbon Dioxide 24 BUN 35 H Creatinine 5.68 H* D Glucose 152 H Laboratory Tests 12/01/21 01/12/22 08:06 07:56 WBC 8.24 Hgb 6.9 L* Hct 21.4 L Plt Count 116 L Sodium 135 L Potassium 4.3 Chloride 102 Carbon Dioxide 24 BUN 35 H Creatinine 5.68 H* D Glucose 152 H Laboratory Tests 01/12/22 07:56 Sodium 137 Potassium 4.4 D Chloride 98 Carbon Dioxide 31 BUN 32 H Creatinine 4.45 H D Glucose 116 H Calcium 8.4 L Magnesium 1.8 PG Care Time/CCT Total # of Minutes Spent Total Time Spent with Patient: Total time spent is greater than 50% in coordination of care (as documented) at patient's floor/unit and/or counseling patient: Coding Level of Care Code 66189 Subseq Hosp Care Lvl 3 Diagnoses ESRD (end stage renal disease) N18.6 Hypertension I10 Hypertension type: essential hypertension Anemia N18.6; D63.1; Z99.2 Anemia type: due to chronic kidney disease Chronic kidney disease stage: on chronic dialysis (1) Hypertension Hypertension type: essential hypertension Qualified Code(s): I10 - Essential (primary) hypertension (2) Anemia Anemia type: due to chronic kidney disease Chronic kidney disease stage: on chronic dialysis Qualified Code(s): N18.6 - End stage renal disease; D63.1 - Anemia in chronic kidney disease; Z99.2 - Dependence on renal dialysis
[2022-01-12 08:33] LABS: Hematocrit (blood only) 21.4 % (42-52); Hemoglobin 6.9 g/dL (14.0-18.0); Mean Corpuscular Hemoglobin 30.7 pg (25-34); Mean Corpuscular Hgb Conc 32.2 g/dL (32-36); Mean Corpuscular Volume 95.1 fL (80-100); Mean Platelet Volume 9.5 fL (7.4-10.4); Platelet Count 116 K/uL (130-400); RDW Coefficient of Variation 17.3 % (11.5-14.5); RDW Standard Deviation 60.2 fL (36.4-46.3); Red Blood Count 2.25 M/uL (4.7-6.1); White Blood Count 8.24 K/uL (4.8-10.8)
[2022-01-12 08:47] LABS: BUN Creatinine Ratio 7.2 (10-20); Calcium 8.4 mg/dl (8.5-10.1); Creatinine Clr Calc Pharmacy 19.1 ml/min; Est GFR (African American) 14.6 ml/min; Est GFR (Non-African American) 12.6 ml/min; Magnesium 1.8 mg/dl (1.7-2.4); Potassium 4.4 mmol/L (3.5-5.1)
[2022-01-12] MEDS ORDERED: SODIUM CHLORIDE 0.9% 250 ML IV PRN ×2 (08:48→13:50)
[2022-01-12] MEDS ORDERED: ATORVASTATIN 40 MG TAB PO SCH (09:00)
--- NOTE | 2022-01-12 10:33 | Orthopedic Progress Note ---
Date of Service January 12, 2022 Assessment & Plan (1) Wound of left lower extremity: Plan: 71-year-old male status post irrigation and debridement with revision of left lower extremity below-knee amputation postoperative day #1 -Pain control -DVT prophylaxis -IV antibiotics -Follow-up intraoperative cultures -PT/OT -Nonweightbearing left lower extremity -Medical management -Plan for dressing change tomorrow we will continue to follow cultures and antibiotics to be adjusted accordingly Admission and Anticipated Discharge Date Admission Date: January 11, 2022 Subjective Patient seen and examined, no acute events overnight. Pain is well controlled. Tolerating p.o. intake. Physical Exam Constitutional: No acute distress, alert and oriented person place and time, resting comfortably in bed Musculoskeletal: Left lower extremity -Dressings clean dry and intact -Sensation grossly intact to light touch -Spontaneously fires quad and hamstring Results & Data ([facility]) Vital Signs (Past 12 Hours) Vital Signs Temp Pulse Pulse Resp BP BP Pulse Ox 01/12/22 09:35 37.1 C 73 16 72/31 L 92 01/12/22 09:34 37.1 C 73 16 72/31 L 92 01/12/22 09:25 37.0 C 75 16 90/51 L 94 01/12/22 09:06 37.0 C 75 16 98/56 L 96 01/12/22 07:06 36.8 C 69 17 103/58 L 100 01/12/22 04:12 37.0 C 74 18 120/56 L 98 01/11/22 23:58 37 C 77 18 102/54 L 96 01/11/22 23:25 36.9 C 77 18 105/52 L 100 01/11/22 22:30 36.9 C 76 18 110/58 L 95
[2022-01-12 11:17] LABS: Fibrinogen 434 mg/dl (184-400)
[2022-01-12 11:19] LABS: D Dimer 2740 ug/L FEU (0-500)
[2022-01-12 11:38] LABS: Bilirubin Direct 0.1 mg/dl (0-0.2); Bilirubin,Total 0.4 mg/dl (0.2-1.0)
[2022-01-12 11:42] LABS: Hematocrit (blood only) 21.6 % (42-52); Hemoglobin 6.8 g/dL (14.0-18.0); Mean Corpuscular Hemoglobin 29.6 pg (25-34); Mean Corpuscular Hgb Conc 31.5 g/dL (32-36); Mean Corpuscular Volume 93.9 fL (80-100); Mean Platelet Volume 9.7 fL (7.4-10.4); Platelet Count 129 K/uL (130-400); RDW Coefficient of Variation 17.6 % (11.5-14.5); RDW Standard Deviation 60.9 fL (36.4-46.3); White Blood Count 7.42 K/uL (4.8-10.8)
[2022-01-12 11:55] LABS: Eosinophils # (auto) 0.02 K/uL (0-0.5); Eosinophils % (auto) 0.3 %; Hypochromasia Present; Immature Granulocytes # (auto) 0.01 K/uL (0.00-0.02); Immature Granulocytes % (auto) 0.1 %; Lymphocytes # (auto) 1.52 K/uL (1.2-3.4); Lymphocytes % (auto) 20.5 %; Monocytes % (auto) 6.7 %; Neutrophils # (auto) 5.37 K/uL (1.4-6.5); Neutrophils % (auto) 72.4 %
[2022-01-12 18:32] LABS: Hematocrit (blood only) 22.9 % (42-52); Hemoglobin 7.3 g/dL (14.0-18.0)
--- NOTE | 2022-01-12 19:21 | Hospitalist Progress Note ---
Date of Service January 12, 2022 Assessment & Plan (1) Wound of left lower extremity: Plan: (1) S/P BKA (below knee amputation): (2) Wound dehiscence, surgical: #. Acute blood loss anemia on chronic anemia, likely postoperative Post op day# 1 S/P revision left BKA by Dr Jay. EBL# 20ml Pain management/wound management/PT OT/DVT prophylaxis per Ortho. Incentive spirometer, status post 2 unit blood transfusion, monitor hemoglobin 12 hourly or as needed. 01/12 SBP dropped by more than 20 mmHg during second unit of PRBC transfusion of this hospital stay, his 3 blood pressure during the blood transfusion were in 70s/ 40s. Patient did not have any fever/urticaria/wheezing/dyspnea/belly pain/other review of symptoms. Blood transfusion was held. Work-up in the line of hemolysis and septic reactions were sent, except for few test is skewed given the fact that he is a hemodialysis patient, other test came negative for transfusion reaction. Follow-up 4-hour later with no new symptoms. Follow-up blood and wound cultures, continue with antibiotics. Tailor antibiotics as cultures available. monitor H&H for acute blood loss anemia; pre-op Hgb: 7.2 CBC, BMP in am (3) Chronic anemia: Anemia chronic disease Pre-op Hgb: 7.2. Was 7.8 on 12/11/2021. Nephrology had recommended transfusion 1 unit PRBC if Hgb less than 7.5 in past s/p 2 unit PRBC transfusion Monitor H&H (4) ESRD (end stage renal disease): HD on Friday schedule Last HD this morning, 01/11/2022 Nephrology consult for assistance with HD (5) Diabetes mellitus, type 2: A1c: 7.8 on 11/13/2021 Basal bolus insulin per protocol (6) Paroxysmal atrial fibrillation: Current sinus rhythm with auscultation Continue amiodarone, Eliquis, metoprolol succinate (7) Hypertension: Continue current metoprolol succinate Previously on other BP medications however since started dialysis is not required (8) Peripheral arterial disease: Continue aspirin, atorvastatin (9) Hypothyroidism: Continue levothyroxine (10) SUKHWINDER (obstructive sleep apnea): Does not use CPAP DVT Prophylaxis -On Eliquis Disposition per primary team Admission and Anticipated Discharge Date Admission Date: January 11, 2022 Subjective Patient seen and examined at bedside as a follow-up of wound dehiscence, left lower extremity amputation stump. Patient was lying in bed, on 2 L nasal cannula oxygen, NAD, no new acute events overnight per patient. Patient denies any fever/headache/dizziness/chest pain/wheezing/cough/shortness of breath/belly pain/acute changes in bowel or bladder habits. Patient reports eating okay. Physical Exam Physical Exam: GENERAL: Alert and oriented x3. NAD, on 2L NC O2. Obese. HEENT: + pallor, no icterus. Pupils equal, round and reactive to light. Oral mucosa moist. NECK: No JVD, no neck masses. Right chest with HD catheter in situ noted. HEART: S1 and S2 heard. Regular rate and rhythm. No murmur, no gallop. RESPIRATORY SYSTEM: Normal AP diameter. No accessory muscle use. No wheezing, no crackles. ABDOMEN: Soft, bowel sounds present, nontender, no distention. CENTRAL NERVOUS SYSTEM: No facial droop. Speech is clear. Obeys simple commands. Moves extremities. EXTREMITIES: RLE with chronic skin changes noted, LLE BKA with clean dressing without soakage with YANE drain with serosanguineous collection noted. Results & Data Results & Data ([facility]) Vital Signs (Past 12 Hours) Vital Signs Temp Pulse Pulse Resp BP BP Pulse Ox 01/12/22 17:03 36.9 C 67 16 106/67 96 01/12/22 15:15 37 C 73 16 102/57 L 97 01/12/22 15:14 36.6 C 68 16 114/62 96 01/12/22 14:45 37.1 C 63 16 94/52 L 94 01/12/22 14:30 36.9 C 67 16 91/48 L 95 01/12/22 14:10 36.7 C 69 16 91/52 L 94 01/12/22 12:25 36.7 C 67 16 95/52 L 96 01/12/22 11:30 94 01/12/22 11:15 89/48 L 01/12/22 11:00 95/52 L 01/12/22 10:48 36.8 C 69 17 90/41 L 95 01/12/22 10:30 94/50 L 01/12/22 10:15 96/48 L 01/12/22 10:03 90/44 L 01/12/22 09:59 71 91/53 L 01/12/22 09:35 37.1 C 73 16 72/31 L 92 01/12/22 09:34 37.1 C 73 16 72/31 L 92 01/12/22 09:25 37.0 C 75 16 90/51 L 94 01/12/22 09:06 37.0 C 75 16 98/56 L 96
[2022-01-12] MEDS: LATANOPROST 0.005% OP SOLN 2.5 ML BTL OP SCH (21:40)
[2022-01-12] MEDS: NUT TX IMPAIRED RENAL FXN SOY PO SCH (22:08)
[2022-01-12 23:23] LABS: Hematocrit (blood only) 22.2 % (42-52)
[2022-01-13] MEDS: PIPERACILLIN/TAZOBACTAM 4.5 GM in DEXTROSE 5% 100 ML IV SCH ×2 (03:40→16:11)
[2022-01-13] MEDS: oxyCODONE HCL IR 5 MG TAB (IMMEDIATE RELEASE) PO PRN ×4 (03:47→20:31)
[2022-01-13] MEDS: ACETAMINOPHEN 500 MG TAB PO SCH ×3 (06:14→22:43)
[2022-01-13] MEDS: LEVOTHYROXINE SODIUM 50 MCG TABLET PO SCH (06:15)
[2022-01-13 06:20] LABS: Hematocrit (blood only) 22.1 % (42-52); Hemoglobin 7.5 g/dL (14.0-18.0); Mean Corpuscular Hemoglobin 31.8 pg (25-34); Mean Corpuscular Hgb Conc 33.9 g/dL (32-36); Mean Corpuscular Volume 93.6 fL (80-100); Mean Platelet Volume 9.9 fL (7.4-10.4); Platelet Count 117 K/uL (130-400); RDW Coefficient of Variation 18.6 % (11.5-14.5); RDW Standard Deviation 63.7 fL (36.4-46.3); Red Blood Count 2.36 M/uL (4.7-6.1); White Blood Count 6.96 K/uL (4.8-10.8)
[2022-01-13 06:48] LABS: BUN Creatinine Ratio 7.3 (10-20); Calcium 8.4 mg/dl (8.5-10.1); Creatinine Clr Calc Pharmacy 14.5 ml/min; Est GFR (African American) 10.4 ml/min; Magnesium 1.8 mg/dl (1.7-2.4); Phosphorus 7.1 mg/dl (2.5-4.9); Potassium 3.7 mmol/L (3.5-5.1)
--- NOTE | 2022-01-13 07:56 | Orthopedic Progress Note ---
Date of Service January 13, 2022 Assessment & Plan (1) Wound of left lower extremity: Plan: 71-year-old male status post irrigation and debridement with revision of left lower extremity below-knee amputation postoperative day #2 -Pain control -DVT prophylaxis -IV antibiotics -Follow-up intraoperative cultures -rare gram-positive cocci showing on Gram stain. Cultures remain no growth to date. -PT/OT -Nonweightbearing left lower extremity -Medical management -DC Hemovac today. -Continue daily dressing changes. Admission and Anticipated Discharge Date Admission Date: January 11, 2022 Subjective Postop day 2 Patient lying in bed awake and alert. No complaints this morning. Pain is controlled. Dressings have been changed by nursing staff earlier this morning. Physical Exam Physical Exam: Dressings are clean, dry, and intact. Hemovac drains are functioning. Results & Data ([facility]) Vital Signs (Past 12 Hours) Vital Signs Temp Pulse Resp BP Pulse Ox 01/13/22 07:08 37 C 68 16 109/56 L 95 01/12/22 23:11 36.8 C 65 20 96/55 L 96 01/12/22 20:46 65 104/61 Laboratory Results 01/13/22 01/13/22 01/12/22 Range/Units 05:37 05:37 22:40 WBC 6.96 (4.8-10.8) K/uL RBC 2.36 L (4.7-6.1) M/uL Hgb 7.5 L 7.0 L (14.0-18.0) g/dL Hct 22.1 L 22.2 L (42-52) % MCV 93.6 (80-100) fL MCH 31.8 (25-34) pg MCHC 33.9 (32-36) g/dL RDW Std Deviation 63.7 H (36.4-46.3) fL RDW Coeff of Millie 18.6 H (11.5-14.5) % Plt Count 117 L (130-400) K/uL MPV 9.9 (7.4-10.4) fL Immature Gran % (Auto) % Neut % (Auto) % Lymph % (Auto) % Canadian % (Auto) % Eos % (Auto) % Baso % (Auto) % Neut # (Auto) (1.4-6.5) K/uL Lymph # (Auto) (1.2-3.4) K/uL Canadian # (Auto) (0.11-0.59) K/uL Eos # (Auto) (0-0.5) K/uL Baso # (Auto) (0-0.2) K/uL Immature Gran # (Auto) (0.00-0.02) K/uL Hypochromasia Haptoglobin Fibrinogen (184-400) mg/dl Fibrin Degrad Products (<10) mcg/ml D-Dimer (0-500) ug/L FEU Factor VIII Activity Sodium 137 (136-145) mmol/L Potassium 3.7 (3.5-5.1) mmol/L Chloride 97 L (98-107) mmol/L Carbon Dioxide 28 (21-32) mmol/L Anion Gap 12 H (3-11) BUN 43 H (6-23) mg/dl Creatinine 5.88 H* D (0.6-1.4) mg/dl Est Cr Clr Drug Dosing 14.5 ml/min Est GFR ( Amer) 10.4 ml/min Est GFR (Non-Af Amer) 9.0 ml/min BUN/Creatinine Ratio 7.3 L (10-20) Glucose 96 (70-99(Fasting)) mg/dl POC Glucose (70-99) mg/dl Calcium 8.4 L (8.5-10.1) mg/dl Phosphorus 7.1 H (2.5-4.9) mg/dl Magnesium 1.8 (1.7-2.4) mg/dl Total Bilirubin (0.2-1.0) mg/dl Direct Bilirubin (0-0.2) mg/dl Lactate Dehydrogenase (86-244) U/L Procalcitonin (0-0.5) ng/ml Blood Type Antibody Screen Direct Antiglob Test MICHELET (IgG-AHG) MICHELET, Polyspecific MICHELET C3b, C3d 5 Min Crossmatch Transfusion React Date Transfusion React Time Tx React Symptoms Reaction Clerical Check Lab Clerical Err Check React Component Return Volume Returned Pre-Trans Blood Type Pre-Trans Vis Hemolysis Pre-Trans MICHELET Pre-Trans MICHELET IgG Pre-Trans MICHELET Poly Pre-Trans MICHELET C3b, C3d Post-Trans Blood Type Post-Tx Visible Hemolys Post-Trans MICHELET Post-Trans MICHELET IgG Post-Trans MICHELET Poly Post-Trans MICHELET C3b, C3d Post-Trans Ur Hemoglobin Reaction Path Interpret Transfusion Serv Com 01/12/22 01/12/22 01/12/22 Range/Units 20:57 18:13 17:09 WBC (4.8-10.8) K/uL RBC (4.7-6.1) M/uL Hgb 7.3 L (14.0-18.0) g/dL Hct 22.9 L (42-52) % MCV (80-100) fL MCH (25-34) pg MCHC (32-36) g/dL RDW Std Deviation (36.4-46.3) fL RDW Coeff of Millie (11.5-14.5) % Plt Count (130-400) K/uL MPV (7.4-10.4) fL Immature Gran % (Auto) % Neut % (Auto) % Lymph % (Auto) % Canadian % (Auto) % Eos % (Auto) % Baso % (Auto) % Neut # (Auto) (1.4-6.5) K/uL Lymph # (Auto) (1.2-3.4) K/uL Canadian # (Auto) (0.11-0.59) K/uL Eos # (Auto) (0-0.5) K/uL Baso # (Auto) (0-0.2) K/uL Immature Gran # (Auto) (0.00-0.02) K/uL Hypochromasia Haptoglobin Fibrinogen (184-400) mg/dl Fibrin Degrad Products (<10) mcg/ml D-Dimer (0-500) ug/L FEU Factor VIII Activity Sodium (136-145) mmol/L Potassium (3.5-5.1) mmol/L Chloride (98-107) mmol/L Carbon Dioxide (21-32) mmol/L Anion Gap (3-11) BUN (6-23) mg/dl Creatinine (0.6-1.4) mg/dl Est Cr Clr Drug Dosing ml/min Est GFR ( Amer) ml/min Est GFR (Non-Af Amer) ml/min BUN/Creatinine Ratio (10-20) Glucose (70-99(Fasting)) mg/dl POC Glucose 112 H 104 H (70-99) mg/dl Calcium (8.5-10.1) mg/dl Phosphorus (2.5-4.9) mg/dl Magnesium (1.7-2.4) mg/dl Total Bilirubin (0.2-1.0) mg/dl Direct Bilirubin (0-0.2) mg/dl Lactate Dehydrogenase (86-244) U/L Procalcitonin (0-0.5) ng/ml Blood Type Antibody Screen Direct Antiglob Test MICHELET (IgG-AHG) MICHELET, Polyspecific MICHELET C3b, C3d 5 Min Crossmatch Transfusion React Date Transfusion React Time Tx React Symptoms Reaction Clerical Check Lab Clerical Err Check React Component Return Volume Returned Pre-Trans Blood Type Pre-Trans Vis Hemolysis Pre-Trans MICHELET Pre-Trans MICHELET IgG Pre-Trans MICHELET Poly Pre-Trans MICHELET C3b, C3d Post-Trans Blood Type Post-Tx Visible Hemolys Post-Trans MICHELET Post-Trans MICHELET IgG Post-Trans MICHELET Poly Post-Trans MICHELET C3b, C3d Post-Trans Ur Hemoglobin Reaction Path Interpret Transfusion Serv Com 01/12/22 01/12/22 01/12/22 Range/Units 12:08 10:38 10:38 WBC (4.8-10.8) K/uL RBC (4.7-6.1) M/uL Hgb (14.0-18.0) g/dL Hct (42-52) % MCV (80-100) fL MCH (25-34) pg MCHC (32-36) g/dL RDW Std Deviation (36.4-46.3) fL RDW Coeff of Millie (11.5-14.5) % Plt Count (130-400) K/uL MPV (7.4-10.4) fL Immature Gran % (Auto) % Neut % (Auto) % Lymph % (Auto) % Canadian % (Auto) % Eos % (Auto) % Baso % (Auto) % Neut # (Auto) (1.4-6.5) K/uL Lymph # (Auto) (1.2-3.4) K/uL Canadian # (Auto) (0.11-0.59) K/uL Eos # (Auto) (0-0.5) K/uL Baso # (Auto) (0-0.2) K/uL Immature Gran # (Auto) (0.00-0.02) K/uL Hypochromasia Haptoglobin Fibrinogen (184-400) mg/dl Fibrin Degrad Products (<10) mcg/ml D-Dimer (0-500) ug/L FEU Factor VIII Activity Pending Sodium (136-145) mmol/L Potassium (3.5-5.1) mmol/L Chloride (98-107) mmol/L Carbon Dioxide (21-32) mmol/L Anion Gap (3-11) BUN (6-23) mg/dl Creatinine (0.6-1.4) mg/dl Est Cr Clr Drug Dosing ml/min Est GFR ( Amer) ml/min Est GFR (Non-Af Amer) ml/min BUN/Creatinine Ratio (10-20) Glucose (70-99(Fasting)) mg/dl POC Glucose 111 H (70-99) mg/dl Calcium (8.5-10.1) mg/dl Phosphorus (2.5-4.9) mg/dl Magnesium (1.7-2.4) mg/dl Total Bilirubin 0.4 (0.2-1.0) mg/dl Direct Bilirubin 0.1 (0-0.2) mg/dl Lactate Dehydrogenase (86-244) U/L Procalcitonin (0-0.5) ng/ml Blood Type Antibody Screen Direct Antiglob Test MICHELET (IgG-AHG) MICHELET, Polyspecific MICHELET C3b, C3d 5 Min Crossmatch Transfusion React Date Transfusion React Time Tx React Symptoms Reaction Clerical Check Lab Clerical Err Check React Component Return Volume Returned Pre-Trans Blood Type Pre-Trans Vis Hemolysis Pre-Trans MICHELET Pre-Trans MICHELET IgG Pre-Trans MICHELET Poly Pre-Trans MICHELET C3b, C3d Post-Trans Blood Type Post-Tx Visible Hemolys Post-Trans MICHELET Post-Trans MICHELET IgG Post-Trans MICHELET Poly Post-Trans MICHELET C3b, C3d Post-Trans Ur Hemoglobin Reaction Path Interpret Transfusion Serv Com 01/12/22 01/12/22 01/12/22 Range/Units 10:38 10:38 10:38 WBC (4.8-10.8) K/uL RBC (4.7-6.1) M/uL Hgb (14.0-18.0) g/dL Hct (42-52) % MCV (80-100) fL MCH (25-34) pg MCHC (32-36) g/dL RDW Std Deviation (36.4-46.3) fL RDW Coeff of Millie (11.5-14.5) % Plt Count (130-400) K/uL MPV (7.4-10.4) fL Immature Gran % (Auto) % Neut % (Auto) % Lymph % (Auto) % Canadian % (Auto) % Eos % (Auto) % Baso % (Auto) % Neut # (Auto) (1.4-6.5) K/uL Lymph # (Auto) (1.2-3.4) K/uL Canadian # (Auto) (0.11-0.59) K/uL Eos # (Auto) (0-0.5) K/uL Baso # (Auto) (0-0.2) K/uL Immature Gran # (Auto) (0.00-0.02) K/uL Hypochromasia Haptoglobin Pending Fibrinogen 434 H (184-400) mg/dl Fibrin Degrad Products 10-40 H (<10) mcg/ml D-Dimer 2740 H* (0-500) ug/L FEU Factor VIII Activity Sodium (136-145) mmol/L Potassium (3.5-5.1) mmol/L Chloride (98-107) mmol/L Carbon Dioxide (21-32) mmol/L Anion Gap (3-11) BUN (6-23) mg/dl Creatinine (0.6-1.4) mg/dl Est Cr Clr Drug Dosing ml/min Est GFR ( Amer) ml/min Est GFR (Non-Af Amer) ml/min BUN/Creatinine Ratio (10-20) Glucose (70-99(Fasting)) mg/dl POC Glucose (70-99) mg/dl Calcium (8.5-10.1) mg/dl Phosphorus (2.5-4.9) mg/dl Magnesium (1.7-2.4) mg/dl Total Bilirubin (0.2-1.0) mg/dl Direct Bilirubin (0-0.2) mg/dl Lactate Dehydrogenase (86-244) U/L Procalcitonin (0-0.5) ng/ml Blood Type Antibody Screen Direct Antiglob Test MICHELET (IgG-AHG) MICHELET, Polyspecific MICHELET C3b, C3d 5 Min Crossmatch Transfusion React Date Transfusion React Time Tx React Symptoms Reaction Clerical Check Lab Clerical Err Check React Component Return Volume Returned Pre-Trans Blood Type Pre-Trans Vis Hemolysis Pre-Trans MICHELET Pre-Trans MICHELET IgG Pre-Trans MICHELET Poly Pre-Trans MICHELET C3b, C3d Post-Trans Blood Type Post-Tx Visible Hemolys Post-Trans MICHELET Post-Trans MICHELET IgG Post-Trans MICHELET Poly Post-Trans MICHELET C3b, C3d Post-Trans Ur Hemoglobin Reaction Path Interpret Transfusion Serv Com 01/12/22 01/12/22 01/12/22 Range/Units 10:38 10:38 10:38 WBC 7.42 (4.8-10.8) K/uL RBC 2.30 L (4.7-6.1) M/uL Hgb 6.8 L* (14.0-18.0) g/dL Hct 21.6 L (42-52) % MCV 93.9 (80-100) fL MCH 29.6 (25-34) pg MCHC 31.5 L (32-36) g/dL RDW Std Deviation 60.9 H (36.4-46.3) fL RDW Coeff of Millie 17.6 H (11.5-14.5) % Plt Count 129 L (130-400) K/uL MPV 9.7 (7.4-10.4) fL Immature Gran % (Auto) 0.1 % Neut % (Auto) 72.4 % Lymph % (Auto) 20.5 % Canadian % (Auto) 6.7 % Eos % (Auto) 0.3 % Baso % (Auto) 0.0 % Neut # (Auto) 5.37 (1.4-6.5) K/uL Lymph # (Auto) 1.52 (1.2-3.4) K/uL Canadian # (Auto) 0.50 (0.11-0.59) K/uL Eos # (Auto) 0.02 (0-0.5) K/uL Baso # (Auto) 0.00 (0-0.2) K/uL Immature Gran # (Auto) 0.01 (0.00-0.02) K/uL Hypochromasia Present Haptoglobin Fibrinogen (184-400) mg/dl Fibrin Degrad Products (<10) mcg/ml D-Dimer (0-500) ug/L FEU Factor VIII Activity Sodium (136-145) mmol/L Potassium (3.5-5.1) mmol/L Chloride (98-107) mmol/L Carbon Dioxide (21-32) mmol/L Anion Gap (3-11) BUN (6-23) mg/dl Creatinine (0.6-1.4) mg/dl Est Cr Clr Drug Dosing ml/min Est GFR ( Amer) ml/min Est GFR (Non-Af Amer) ml/min BUN/Creatinine Ratio (10-20) Glucose (70-99(Fasting)) mg/dl POC Glucose (70-99) mg/dl Calcium (8.5-10.1) mg/dl Phosphorus (2.5-4.9) mg/dl Magnesium (1.7-2.4) mg/dl Total Bilirubin (0.2-1.0) mg/dl Direct Bilirubin (0-0.2) mg/dl Lactate Dehydrogenase 153 (86-244) U/L Procalcitonin < 0.05 (0-0.5) ng/ml Blood Type Antibody Screen Direct Antiglob Test MICHELET (IgG-AHG) MICHELET, Polyspecific MICHELET C3b, C3d 5 Min Crossmatch Transfusion React Date Transfusion React Time Tx React Symptoms Reaction Clerical Check Lab Clerical Err Check React Component Return Volume Returned Pre-Trans Blood Type Pre-Trans Vis Hemolysis Pre-Trans MICHELET Pre-Trans MICHELET IgG Pre-Trans MICHELET Poly Pre-Trans MICHELET C3b, C3d Post-Trans Blood Type Post-Tx Visible Hemolys Post-Trans MICHELET Post-Trans MICHELET IgG Post-Trans MICHELET Poly Post-Trans MICHELET C3b, C3d Post-Trans Ur Hemoglobin Reaction Path Interpret Transfusion Serv Com 01/12/22 01/12/22 01/12/22 Range/Units 10:08 08:09 07:56 WBC (4.8-10.8) K/uL RBC (4.7-6.1) M/uL Hgb (14.0-18.0) g/dL Hct (42-52) % MCV (80-100) fL MCH (25-34) pg MCHC (32-36) g/dL RDW Std Deviation (36.4-46.3) fL RDW Coeff of Millie (11.5-14.5) % Plt Count (130-400) K/uL MPV (7.4-10.4) fL Immature Gran % (Auto) % Neut % (Auto) % Lymph % (Auto) % Canadian % (Auto) % Eos % (Auto) % Baso % (Auto) % Neut # (Auto) (1.4-6.5) K/uL Lymph # (Auto) (1.2-3.4) K/uL Canadian # (Auto) (0.11-0.59) K/uL Eos # (Auto) (0-0.5) K/uL Baso # (Auto) (0-0.2) K/uL Immature Gran # (Auto) (0.00-0.02) K/uL Hypochromasia Haptoglobin Fibrinogen (184-400) mg/dl Fibrin Degrad Products (<10) mcg/ml D-Dimer (0-500) ug/L FEU Factor VIII Activity Sodium 137 (136-145) mmol/L Potassium 4.4 D (3.5-5.1) mmol/L Chloride 98 (98-107) mmol/L Carbon Dioxide 31 (21-32) mmol/L Anion Gap 8 (3-11) BUN 32 H (6-23) mg/dl Creatinine 4.45 H D (0.6-1.4) mg/dl Est Cr Clr Drug Dosing 19.1 ml/min Est GFR ( Amer) 14.6 ml/min Est GFR (Non-Af Amer) 12.6 ml/min BUN/Creatinine Ratio 7.2 L (10-20) Glucose 116 H (70-99(Fasting)) mg/dl POC Glucose 123 H (70-99) mg/dl Calcium 8.4 L (8.5-10.1) mg/dl Phosphorus (2.5-4.9) mg/dl Magnesium 1.8 (1.7-2.4) mg/dl Total Bilirubin (0.2-1.0) mg/dl Direct Bilirubin (0-0.2) mg/dl Lactate Dehydrogenase (86-244) U/L Procalcitonin (0-0.5) ng/ml Blood Type Antibody Screen Direct Antiglob Test MICHELET (IgG-AHG) MICHELET, Polyspecific MICHELET C3b, C3d 5 Min Crossmatch Transfusion React Date Pending Transfusion React Time Pending Tx React Symptoms Pending Reaction Clerical Check Pending Lab Clerical Err Check Pending React Component Return Pending Volume Returned Pending Pre-Trans Blood Type Pending Pre-Trans Vis Hemolysis Pending Pre-Trans MICHELET Pending Pre-Trans MICHELET IgG Pending Pre-Trans MICHELET Poly Pending Pre-Trans MICHELET C3b, C3d Pending Post-Trans Blood Type Pending Post-Tx Visible Hemolys Pending Post-Trans MICHELET Pending Post-Trans MICHELET IgG Pending Post-Trans MICHELET Poly Pending Post-Trans MICHELET C3b, C3d Pending Post-Trans Ur Hemoglobin Pending Reaction Path Interpret Pending Transfusion Serv Com Pending 01/12/22 01/11/22 Range/Units 07:56 11:36 WBC 8.24 (4.8-10.8) K/uL RBC 2.25 L (4.7-6.1) M/uL Hgb 6.9 L* (14.0-18.0) g/dL Hct 21.4 L (42-52) % MCV 95.1 (80-100) fL MCH 30.7 (25-34) pg MCHC 32.2 (32-36) g/dL RDW Std Deviation 60.2 H (36.4-46.3) fL RDW Coeff of Millie 17.3 H (11.5-14.5) % Plt Count 116 L (130-400) K/uL MPV 9.5 (7.4-10.4) fL Immature Gran % (Auto) % Neut % (Auto) % Lymph % (Auto) % Canadian % (Auto) % Eos % (Auto) % Baso % (Auto) % Neut # (Auto) (1.4-6.5) K/uL Lymph # (Auto) (1.2-3.4) K/uL Canadian # (Auto) (0.11-0.59) K/uL Eos # (Auto) (0-0.5) K/uL Baso # (Auto) (0-0.2) K/uL Immature Gran # (Auto) (0.00-0.02) K/uL Hypochromasia Haptoglobin Fibrinogen (184-400) mg/dl Fibrin Degrad Products (<10) mcg/ml D-Dimer (0-500) ug/L FEU Factor VIII Activity Sodium (136-145) mmol/L Potassium (3.5-5.1) mmol/L Chloride (98-107) mmol/L Carbon Dioxide (21-32) mmol/L Anion Gap (3-11) BUN (6-23) mg/dl Creatinine (0.6-1.4) mg/dl Est Cr Clr Drug Dosing ml/min Est GFR ( Amer) ml/min Est GFR (Non-Af Amer) ml/min BUN/Creatinine Ratio (10-20) Glucose (70-99(Fasting)) mg/dl POC Glucose (70-99) mg/dl Calcium (8.5-10.1) mg/dl Phosphorus (2.5-4.9) mg/dl Magnesium (1.7-2.4) mg/dl Total Bilirubin (0.2-1.0) mg/dl Direct Bilirubin (0-0.2) mg/dl Lactate Dehydrogenase (86-244) U/L Procalcitonin (0-0.5) ng/ml Blood Type O Positive Antibody Screen NEGATIVE Direct Antiglob Test Cancelled MICHELET (IgG-AHG) Cancelled MICHELET, Polyspecific Cancelled MICHELET C3b, C3d 5 Min Cancelled Crossmatch See Detail Transfusion React Date Transfusion React Time Tx React Symptoms Reaction Clerical Check Lab Clerical Err Check React Component Return Volume Returned Pre-Trans Blood Type Pre-Trans Vis Hemolysis Pre-Trans MICHELET Pre-Trans MICHELET IgG Pre-Trans MICHELET Poly Pre-Trans MICHELET C3b, C3d Post-Trans Blood Type Post-Tx Visible Hemolys Post-Trans MICHELET Post-Trans MICHELET IgG Post-Trans MICHELET Poly Post-Trans MICHELET C3b, C3d Post-Trans Ur Hemoglobin Reaction Path Interpret Transfusion Serv Com
[2022-01-13] MEDS: BRIMONIDINE TARTRATE-P 0.15% 5 ML BTL OPB SCH ×2 (08:11→20:21)
[2022-01-13] MEDS: DOCUSATE SODIUM 100 MG CAP PO SCH ×2 (08:11→20:25)
[2022-01-13] MEDS: allopurinoL 100 MG TAB PO SCH (08:11)
[2022-01-13] MEDS: AMIODARONE 200 MG TAB PO SCH ×2 (08:11→20:22)
[2022-01-13] MEDS: MULTIVITAMIN TAB PO SCH (08:11)
[2022-01-13] MEDS: ASPIRIN 81 MG ECTAB PO SCH (08:12)
[2022-01-13] MEDS: APIXABAN 5 MG TABLET PO SCH ×2 (08:12→20:25)
[2022-01-13] MEDS: CALCITRIOL 0.25 MCG CAPSULE PO SCH ×2 (08:12→20:22)
[2022-01-13] MEDS: METOPROLOL SUCC 50MG EXT REL TAB PO SCH (08:13)
[2022-01-13] MEDS: INSULIN GLARGINE SOLOSTAR 100 UNITS/ML 3 ML PEN SC SCH ×2 (08:23→20:43)
[2022-01-13] MEDS: INSULIN ASPART PER UNIT SC SCH ×4 (08:56→20:42)
--- NOTE | 2022-01-13 11:26 | Nephrology Progress Note ---
Date of Service January 13, 2022 Assessment & Plan (1) ESRD (end stage renal disease): Plan: * ESKD on HD. Volume status and electrolyte balance are acceptable. No acute indication for HD today. Will maintain MWF outpatient schedule (2) Hypertension: Plan: * Requires Metoprolol for rate control of atrial fibrillation (3) Anemia: Plan: * 2 units PRBC provided yesterday. Transfusion held during 2nd unit due to hypotension * Will check iron studies and provide ROBERTH w/ HD tomorrow Admission and Anticipated Discharge Date Admission Date: January 11, 2022 Subjective Mr. Arias was evaluated in his hospital room this morning. He denied pain involving his BKA revision site. He was transfused 2u PRBC. Transfusion halted during 2nd unit due to hypotension. Transfusion reaction evaluation was negative. Mr. Arias voices no new medical concerns this morning. Review of Systems Constitutional: no fever Eyes: no worsening vision Ear, Nose, Mouth, Throat: no problem reported Respiratory: no cough and no dyspnea Cardiovascular: no chest pain, no palpitations and no edema Gastrointestinal: no abdominal pain Neurologic: no confusion Physical Exam Constitutional: + morbidly obese Eyes: PERRL, conjunctivae normal, anicteric sclerae ENMT: external ear and nose normal, oropharynx normal Neck: trachea midline, no thyromegaly Respiratory: normal respiratory effort, lungs clear to auscultation Cardiovascular: Rate/Rhythm: regular rate and regular rhythm Gastrointestinal (Abdomen): normal bowel sounds, soft, nontender, no hepatosplenomegaly Neurologic: awake; not confused Results & Data ([facility]) Vital Signs (Past 12 Hours) Vital Signs Temp Pulse Resp BP Pulse Ox 01/13/22 07:08 37 C 68 16 109/56 L 95 Laboratory Results Laboratory Tests 01/12/22 01/12/22 01/13/22 07:56 10:38 05:37 WBC 6.96 Hgb 6.8 L* 7.5 L Hct 22.1 L Plt Count 117 L Sodium 137 Potassium 4.4 D Chloride 98 Carbon Dioxide 31 BUN 32 H Creatinine 4.45 H D Glucose 116 H Calcium 8.4 L Phosphorus Magnesium 1.8 01/13/22 05:37 WBC Hgb Hct Plt Count Sodium 137 Potassium 3.7 Chloride 97 L Carbon Dioxide 28 BUN 43 H Creatinine 5.88 H* D Glucose 96 Calcium 8.4 L Phosphorus 7.1 H Magnesium 1.8 PG Care Time/CCT Total # of Minutes Spent Total Time Spent with Patient: Total time spent is greater than 50% in coordination of care (as documented) at patient's floor/unit and/or counseling patient: Coding Level of Care Code 17620 Subseq Hosp Care Lvl 3 Diagnoses ESRD (end stage renal disease) N18.6 Hypertension I10 Hypertension type: essential hypertension Anemia N18.6; D63.1; Z99.2 Anemia type: due to chronic kidney disease Chronic kidney disease stage: on chronic dialysis (1) Hypertension Hypertension type: essential hypertension Qualified Code(s): I10 - Essential (primary) hypertension (2) Anemia Anemia type: due to chronic kidney disease Chronic kidney disease stage: on chronic dialysis Qualified Code(s): N18.6 - End stage renal disease; D63.1 - Anemia in chronic kidney disease; Z99.2 - Dependence on renal dialysis
[2022-01-13] MEDS: CALCIUM ACETATE 667 MG CAP/TAB PO SCH ×2 (13:05→17:54)
--- NOTE | 2022-01-13 16:20 | Hospitalist Progress Note ---
Date of Service January 13, 2022 Assessment & Plan (1) Wound of left lower extremity: Plan: (1) S/P BKA (below knee amputation): (2) Wound dehiscence, surgical: #. Acute blood loss anemia on chronic anemia, likely postoperative Post op day# 1 S/P revision left BKA by Dr Jay. EBL# 20ml Pain management/wound management/PT OT/DVT prophylaxis per Ortho. Incentive spirometer, status post 2 unit blood transfusion, monitor hemoglobin 12 hourly or as needed. 01/12 SBP dropped by more than 20 mmHg during second unit of PRBC transfusion of this hospital stay, his 3 blood pressure readings during the blood transfusion were in 70s/ 40s. Patient did not have any fever/urticaria/wheezing/dyspnea/belly pain/other review of symptoms. Blood transfusion was held. Work-up in the line of hemolysis and septic reactions were sent, except for few test that is skewed given the fact that he is a hemodialysis patient, other test came negative for transfusion reaction. Some are pending as of 01/13. Follow-up 4-hour later with no new symptoms. Follow-up blood and wound cultures, continue with antibiotics. Tailor antibiotics as cultures available. monitor H&H for acute blood loss anemia; pre-op Hgb: 7.2. s/p 2 units (1 unit on 01/12 was not completed, see above) CBC, BMP in am (3) Chronic anemia: Anemia chronic disease Pre-op Hgb: 7.2. Was 7.8 on 12/11/2021. Nephrology had recommended transfusion 1 unit PRBC if Hgb less than 7.5 in past s/p 2 unit PRBC transfusion Monitor H&H (4) ESRD (end stage renal disease): HD on Friday schedule Last HD this morning, 01/11/2022 Nephrology consult for assistance with HD (5) Diabetes mellitus, type 2: A1c: 7.8 on 11/13/2021 Basal bolus insulin per protocol (6) Paroxysmal atrial fibrillation: Current sinus rhythm with auscultation Continue amiodarone, Eliquis, metoprolol succinate (7) Hypertension: Continue current metoprolol succinate Previously on other BP medications however since started dialysis is not required (8) Peripheral arterial disease: Continue aspirin, atorvastatin (9) Hypothyroidism: Continue levothyroxine (10) SUKHWINDER (obstructive sleep apnea): Does not use CPAP DVT Prophylaxis -On Eliquis Disposition per primary team Admission and Anticipated Discharge Date Admission Date: January 11, 2022 Subjective Patient seen and examined at bedside as a follow-up of wound dehiscence, left lower extremity amputation stump. Patient was lying in bed, on 2 L nasal cannula oxygen, NAD, no new acute events overnight per patient. Patient denies any fever/headache/dizziness/chest pain/wheezing/cough/shortness of breath/belly pain/acute changes in bowel or bladder habits. Patient reports eating okay. Physical Exam Physical Exam: GENERAL: Alert and oriented x3. NAD, on 2L NC O2. Obese. HEENT: + pallor, no icterus. Pupils equal, round and reactive to light. Oral mucosa moist. NECK: No JVD, no neck masses. Right chest with HD catheter in situ noted. HEART: S1 and S2 heard. Regular rate and rhythm. No murmur, no gallop. RESPIRATORY SYSTEM: Normal AP diameter. No accessory muscle use. No wheezing, no crackles. ABDOMEN: Soft, bowel sounds present, nontender, no distention. CENTRAL NERVOUS SYSTEM: No facial droop. Speech is clear. Obeys simple commands. Moves extremities. EXTREMITIES: RLE with chronic skin changes noted, LLE BKA with clean dressing without soakage. Results & Data Results & Data ([facility]) Vital Signs (Past 12 Hours) Vital Signs Temp Pulse Resp BP Pulse Ox 01/13/22 14:54 36.4 C L 70 16 105/58 L 97 01/13/22 07:08 37 C 68 16 109/56 L 95
[2022-01-13] MEDS: DAPTOmycin 525 MG in SYRINGE 0 ML IV SCH (20:12)
[2022-01-13] MEDS: LATANOPROST 0.005% OP SOLN 2.5 ML BTL OP SCH (20:21)
[2022-01-13] MEDS: NUT TX IMPAIRED RENAL FXN SOY PO SCH (20:24)
[2022-01-14] MEDS: PIPERACILLIN/TAZOBACTAM 4.5 GM in DEXTROSE 5% 100 ML IV SCH ×2 (03:28→15:52)
[2022-01-14] MEDS: ACETAMINOPHEN 500 MG TAB PO SCH ×3 (05:22→21:43)
[2022-01-14] MEDS: LEVOTHYROXINE SODIUM 50 MCG TABLET PO SCH (05:23)
[2022-01-14] MEDS ORDERED: EPOETIN ALFA 10,000 UNITS/ML VIAL IV ONE (07:00)
[2022-01-14] MEDS ORDERED: SODIUM CHLORIDE 0.9% 1000ML 1,000 ML IV PRN (07:00)
[2022-01-14 07:05] LABS: Hematocrit (blood only) 22.9 % (42-52); Hemoglobin 7.2 g/dL (14.0-18.0); Mean Corpuscular Hemoglobin 29.5 pg (25-34); Mean Corpuscular Hgb Conc 31.4 g/dL (32-36); Mean Corpuscular Volume 93.9 fL (80-100); Mean Platelet Volume 9.7 fL (7.4-10.4); Platelet Count 121 K/uL (130-400); RDW Coefficient of Variation 18.2 % (11.5-14.5); RDW Standard Deviation 63.1 fL (36.4-46.3); Red Blood Count 2.44 M/uL (4.7-6.1); White Blood Count 6.93 K/uL (4.8-10.8)
[2022-01-14 07:49] LABS: BUN Creatinine Ratio 7.3 (10-20); Calcium 8.8 mg/dl (8.5-10.1); Creatinine Clr Calc Pharmacy 11.2 ml/min; Est GFR (African American) 7.7 ml/min; Est GFR (Non-African American) 6.6 ml/min; Potassium 4.2 mmol/L (3.5-5.1)
[2022-01-14] MEDS: APIXABAN 5 MG TABLET PO SCH (08:00)
[2022-01-14] MEDS: AMIODARONE 200 MG TAB PO SCH ×2 (08:00→21:42)
[2022-01-14] MEDS: ASPIRIN 81 MG ECTAB PO SCH (08:00)
[2022-01-14] MEDS: allopurinoL 100 MG TAB PO SCH (08:00)
[2022-01-14] MEDS: METOPROLOL SUCC 50MG EXT REL TAB PO SCH (08:00)
[2022-01-14] MEDS: DOCUSATE SODIUM 100 MG CAP PO SCH ×2 (08:00→19:05)
[2022-01-14] MEDS: CALCITRIOL 0.25 MCG CAPSULE PO SCH ×2 (08:00→21:41)
[2022-01-14] MEDS: MULTIVITAMIN TAB PO SCH (08:00)
[2022-01-14] MEDS: CALCIUM ACETATE 667 MG CAP/TAB PO SCH ×3 (08:01→17:25)
[2022-01-14] MEDS: BRIMONIDINE TARTRATE-P 0.15% 5 ML BTL OPB SCH ×2 (08:01→21:41)
[2022-01-14] MEDS: INSULIN ASPART PER UNIT SC SCH ×4 (08:25→20:50)
[2022-01-14] MEDS: INSULIN GLARGINE SOLOSTAR 100 UNITS/ML 3 ML PEN SC SCH ×2 (08:25→20:51)
--- NOTE | 2022-01-14 08:55 | Orthopedic Progress Note ---
Date of Service January 14, 2022 Assessment & Plan (1) Wound dehiscence, surgical: Plan: 71 yo male stable POD #3 s/p revision left BKA 1. Med management- cont IV abx, HD 2. DVT prophylaxis- Eliquis, SCDs 3. PT/OT 4. D/C planning- d/c to [facility] per medicine Admission and Anticipated Discharge Date Admission Date: January 11, 2022 Subjective Pt resting in bed, denies complaints Physical Exam Physical Exam: Dressing changed, some bloody drainage mid incision, new dressing applied Results & Data ([facility]) Vital Signs (Past 12 Hours) Vital Signs Temp Pulse Resp BP Pulse Ox 01/14/22 07:23 37.1 C 75 16 109/49 L 94 01/13/22 22:04 36.6 C 66 18 97 Laboratory Results 01/14/22 01/14/22 01/14/22 Range/Units 08:10 06:36 06:36 WBC 6.93 (4.8-10.8) K/uL RBC 2.44 L (4.7-6.1) M/uL Hgb 7.2 L (14.0-18.0) g/dL Hct 22.9 L (42-52) % MCV 93.9 (80-100) fL MCH 29.5 (25-34) pg MCHC 31.4 L (32-36) g/dL RDW Std Deviation 63.1 H (36.4-46.3) fL RDW Coeff of Millie 18.2 H (11.5-14.5) % Plt Count 121 L (130-400) K/uL MPV 9.7 (7.4-10.4) fL Sodium 138 (136-145) mmol/L Potassium 4.2 (3.5-5.1) mmol/L Chloride 98 (98-107) mmol/L Carbon Dioxide 28 (21-32) mmol/L Anion Gap 12 H (3-11) BUN 55 H (6-23) mg/dl Creatinine 7.58 H* D (0.6-1.4) mg/dl Est Cr Clr Drug Dosing 11.2 ml/min Est GFR ( Amer) 7.7 ml/min Est GFR (Non-Af Amer) 6.6 ml/min BUN/Creatinine Ratio 7.3 L (10-20) Glucose 114 H (70-99(Fasting)) mg/dl POC Glucose 117 H (70-99) mg/dl Calcium 8.8 (8.5-10.1) mg/dl Magnesium 2.0 (1.7-2.4) mg/dl Iron (35-175) mcg/dl TIBC (250-450) mcg/dl Unsaturated IBC (155-355) mcg/dl Transferrin % Sat (20-50) % Ferritin (8-388) ng/ml 01/13/22 01/13/22 01/13/22 Range/Units 20:40 17:12 12:09 WBC (4.8-10.8) K/uL RBC (4.7-6.1) M/uL Hgb (14.0-18.0) g/dL Hct (42-52) % MCV (80-100) fL MCH (25-34) pg MCHC (32-36) g/dL RDW Std Deviation (36.4-46.3) fL RDW Coeff of Millie (11.5-14.5) % Plt Count (130-400) K/uL MPV (7.4-10.4) fL Sodium (136-145) mmol/L Potassium (3.5-5.1) mmol/L Chloride (98-107) mmol/L Carbon Dioxide (21-32) mmol/L Anion Gap (3-11) BUN (6-23) mg/dl Creatinine (0.6-1.4) mg/dl Est Cr Clr Drug Dosing ml/min Est GFR ( Amer) ml/min Est GFR (Non-Af Amer) ml/min BUN/Creatinine Ratio (10-20) Glucose (70-99(Fasting)) mg/dl POC Glucose 117 H 96 98 (70-99) mg/dl Calcium (8.5-10.1) mg/dl Magnesium (1.7-2.4) mg/dl Iron (35-175) mcg/dl TIBC (250-450) mcg/dl Unsaturated IBC (155-355) mcg/dl Transferrin % Sat (20-50) % Ferritin (8-388) ng/ml 01/13/22 Range/Units 05:37 WBC (4.8-10.8) K/uL RBC (4.7-6.1) M/uL Hgb (14.0-18.0) g/dL Hct (42-52) % MCV (80-100) fL MCH (25-34) pg MCHC (32-36) g/dL RDW Std Deviation (36.4-46.3) fL RDW Coeff of Millie (11.5-14.5) % Plt Count (130-400) K/uL MPV (7.4-10.4) fL Sodium (136-145) mmol/L Potassium (3.5-5.1) mmol/L Chloride (98-107) mmol/L Carbon Dioxide (21-32) mmol/L Anion Gap (3-11) BUN (6-23) mg/dl Creatinine (0.6-1.4) mg/dl Est Cr Clr Drug Dosing ml/min Est GFR ( Amer) ml/min Est GFR (Non-Af Amer) ml/min BUN/Creatinine Ratio (10-20) Glucose (70-99(Fasting)) mg/dl POC Glucose (70-99) mg/dl Calcium (8.5-10.1) mg/dl Magnesium (1.7-2.4) mg/dl Iron 41 (35-175) mcg/dl TIBC 178 L (250-450) mcg/dl Unsaturated IBC 137 L (155-355) mcg/dl Transferrin % Sat 23 (20-50) % Ferritin 327.0 (8-388) ng/ml Microbiology 01/12/22 10:38 Aerobic Blood Culture - Preliminary Blood No growth in Aerobic bottle after 24 hours. Anaerobic Blood Culture - Preliminary No growth in Anaerobic bottle after 24 hours. 01/12/22 10:38 Aerobic Blood Culture - Preliminary Blood No growth in Aerobic bottle after 24 hours. Anaerobic Blood Culture - Preliminary No growth in Anaerobic bottle after 24 hours. Abnormal Labs 01/11/22 01/11/22 01/11/22 11:17 11:36 11:36 RBC 2.39 L Hgb 7.2 L Hct 22.7 L MCHC 31.7 L RDW Std Deviation 58.6 H RDW Coeff of Millie 16.6 H Plt Count 127 L APTT Fibrinogen Fibrin Degrad Products D-Dimer Chloride Carbon Dioxide Anion Gap BUN Creatinine BUN/Creatinine Ratio Glucose POC Glucose 100 H Calcium Phosphorus TIBC Unsaturated IBC Crossmatch See Detail 0501/11/22 01/11/22 11:36 11:36 20:38 RBC Hgb Hct MCHC RDW Std Deviation RDW Coeff of Millie Plt Count APTT 31.2 H Fibrinogen Fibrin Degrad Products D-Dimer Chloride 97 L Carbon Dioxide 33 H Anion Gap BUN Creatinine 3.01 H BUN/Creatinine Ratio 6.3 L Glucose POC Glucose 116 H Calcium Phosphorus TIBC Unsaturated IBC Crossmatch 01/12/22 01/12/22 01/12/22 07:56 07:56 08:09 RBC 2.25 L Hgb 6.9 L* Hct 21.4 L MCHC RDW Std Deviation 60.2 H RDW Coeff of Millie 17.3 H Plt Count 116 L APTT Fibrinogen Fibrin Degrad Products D-Dimer Chloride Carbon Dioxide Anion Gap BUN 32 H Creatinine 4.45 H D BUN/Creatinine Ratio 7.2 L Glucose 116 H POC Glucose 123 H Calcium 8.4 L Phosphorus TIBC Unsaturated IBC Crossmatch 01/12/22 01/12/22 01/12/22 10:38 10:38 10:38 RBC 2.30 L Hgb 6.8 L* Hct 21.6 L MCHC 31.5 L RDW Std Deviation 60.9 H RDW Coeff of Millie 17.6 H Plt Count 129 L APTT Fibrinogen 434 H Fibrin Degrad Products 10-40 H D-Dimer 2740 H* Chloride Carbon Dioxide Anion Gap BUN Creatinine BUN/Creatinine Ratio Glucose POC Glucose Calcium Phosphorus TIBC Unsaturated IBC Crossmatch 01/12/22 01/12/22 01/12/22 12:08 17:09 18:13 RBC Hgb 7.3 L Hct 22.9 L MCHC RDW Std Deviation RDW Coeff of Millie Plt Count APTT Fibrinogen Fibrin Degrad Products D-Dimer Chloride Carbon Dioxide Anion Gap BUN Creatinine BUN/Creatinine Ratio Glucose POC Glucose 111 H 104 H Calcium Phosphorus TIBC Unsaturated IBC Crossmatch 01/12/22 01/12/22 01/13/22 20:57 22:40 05:37 RBC 2.36 L Hgb 7.0 L 7.5 L Hct 22.2 L 22.1 L MCHC RDW Std Deviation 63.7 H RDW Coeff of Millie 18.6 H Plt Count 117 L APTT Fibrinogen Fibrin Degrad Products D-Dimer Chloride Carbon Dioxide Anion Gap BUN Creatinine BUN/Creatinine Ratio Glucose POC Glucose 112 H Calcium Phosphorus TIBC Unsaturated IBC Crossmatch 01/13/22 01/13/22 01/13/22 05:37 05:37 08:09 RBC Hgb Hct MCHC RDW Std Deviation RDW Coeff of Millie Plt Count APTT Fibrinogen Fibrin Degrad Products D-Dimer Chloride 97 L Carbon Dioxide Anion Gap 12 H BUN 43 H Creatinine 5.88 H* D BUN/Creatinine Ratio 7.3 L Glucose POC Glucose 102 H Calcium 8.4 L Phosphorus 7.1 H TIBC 178 L Unsaturated IBC 137 L Crossmatch 01/13/22 01/14/22 01/14/22 20:40 06:36 06:36 RBC 2.44 L Hgb 7.2 L Hct 22.9 L MCHC 31.4 L RDW Std Deviation 63.1 H RDW Coeff of Millie 18.2 H Plt Count 121 L APTT Fibrinogen Fibrin Degrad Products D-Dimer Chloride Carbon Dioxide Anion Gap 12 H BUN 55 H Creatinine 7.58 H* D BUN/Creatinine Ratio 7.3 L Glucose 114 H POC Glucose 117 H Calcium Phosphorus TIBC Unsaturated IBC Crossmatch 01/14/22 08:10 RBC Hgb Hct MCHC RDW Std Deviation RDW Coeff of Millie Plt Count APTT Fibrinogen Fibrin Degrad Products D-Dimer Chloride Carbon Dioxide Anion Gap BUN Creatinine BUN/Creatinine Ratio Glucose POC Glucose 117 H Calcium Phosphorus TIBC Unsaturated IBC Crossmatch
--- NOTE | 2022-01-14 08:56 | Nephrology Progress Note ---
Date of Service January 14, 2022 Assessment & Plan (1) ESRD (end stage renal disease): Plan: * ESKD on HD. Will provide HD todsay. Orders have been placed in EMR and HD RN notified * Hyperphosphatemia noted. Phos-Lo 667 mg two capsules po w/ each meal ordered * Will need AVF creation as outpatient (2) Hypertension: Plan: * Requires Metoprolol for rate control of atrial fibrillation (3) Anemia: Plan: * 2 units PRBC provided 01/12/22. Transfusion held during 2nd unit due to hypotension * 01/13/22 Iron saturation > 20%. Will provide ROBERTH w/ HD today Admission and Anticipated Discharge Date Admission Date: January 11, 2022 Subjective Mr. Arias was evaluated in his hospital room this morning. He denied pain involving his BKA revision site. He is awaiting HD this am and voices no new medical concerns. Review of Systems Constitutional: no fever Eyes: no worsening vision Ear, Nose, Mouth, Throat: no problem reported Respiratory: no cough and no dyspnea Cardiovascular: no chest pain, no palpitations and no edema Gastrointestinal: no abdominal pain Neurologic: no confusion Physical Exam Constitutional: + morbidly obese Eyes: PERRL, conjunctivae normal, anicteric sclerae ENMT: external ear and nose normal, oropharynx normal Neck: trachea midline, no thyromegaly Respiratory: normal respiratory effort, lungs clear to auscultation Cardiovascular: Rate/Rhythm: regular rate and regular rhythm Gastrointestinal (Abdomen): normal bowel sounds, soft, nontender, no hepatosp lenomegaly Neurologic: awake; not confused Results & Data ([facility]) Vital Signs (Past 12 Hours) Vital Signs Temp Pulse Resp BP Pulse Ox 01/14/22 07:23 37.1 C 75 16 109/49 L 94 01/13/22 22:04 36.6 C 66 18 97 Laboratory Results Laboratory Tests 01/12/22 01/14/22 01/14/22 07:56 06:36 06:36 WBC 6.93 Hgb 7.2 L Hct 22.9 L Plt Count 121 L Sodium 137 138 Potassium 4.4 D 4.2 Chloride 98 98 Carbon Dioxide 31 28 BUN 32 H 55 H Creatinine 4.45 H D 7.58 H* D Glucose 116 H 114 H Calcium 8.4 L 8.8 Magnesium 1.8 2.0 Laboratory Tests 01/12/22 01/13/22 07:56 05:37 Sodium 137 Potassium 4.4 D Chloride 98 Carbon Dioxide 31 BUN 32 H Creatinine 4.45 H D Glucose 116 H Calcium 8.4 L Magnesium 1.8 Transferrin % Sat 23 Ferritin 327.0 PG Care Time/CCT Total # of Minutes Spent Total Time Spent with Patient: Total time spent is greater than 50% in coordination of care (as documented) at patient's floor/unit and/or counseling patient: Coding Level of Care Code 07342 Subseq Hosp Care Lvl 3 Diagnoses ESRD (end stage renal disease) N18.6 Hypertension I10 Hypertension type: essential hypertension Anemia N18.6; D63.1; Z99.2 Anemia type: due to chronic kidney disease Chronic kidney disease stage: on chronic dialysis (1) Anemia Anemia type: due to chronic kidney disease Chronic kidney disease stage: on chronic dialysis Qualified Code(s): N18.6 - End stage renal disease; D63.1 - Anemia in chronic kidney disease; Z99.2 - Dependence on renal dialysis (2) Hypertension Hypertension type: essential hypertension Qualified Code(s): I10 - Essential (primary) hypertension
[2022-01-14] MEDS ORDERED: SODIUM CHLORIDE 0.9% 250 ML IV PRN (13:26)
--- NOTE | 2022-01-14 17:25 | Hospitalist Progress Note ---
Date of Service January 14, 2022 Assessment & Plan (1) Wound of left lower extremity: Plan: (1) S/P BKA (below knee amputation): (2) Wound dehiscence, surgical: #. Acute blood loss anemia on chronic anemia, likely postoperative Post op day# 3 S/P revision left BKA by Dr Jay. EBL# 20ml Pain management/wound management/PT OT/DVT prophylaxis per Ortho. Incentive spirometer, on IV atb zosyn 01/11 and dapto 01/11 01/12 SBP dropped by more than 20 mmHg during second unit of PRBC transfusion of this hospital stay, his 3 blood pressure readings during the blood transfusion were in 70s/ 40s. Patient did not have any fever/urticaria/wheezing/dyspnea/ belly pain/other review of symptoms. Blood transfusion was held. Work-up in the line of hemolysis and septic reactions were sent, except for few test that is skewed given the fact that he is a hemodialysis patient, other test came negative for transfusion reaction. Some are pending as of 01/13. Follow-up 4- hour later with no new symptoms. Follow-up blood and wound cultures-->negative growth so far, continue with antibiotics. Will consult ID. monitor H&H for acute blood loss anemia; pre-op Hgb: 7.2. s/p 2 units (1 unit on 01/12 was not completed, see above) D/t ongoing serosanguineous drainage from the operative site, held eliquis 01/14, will resume with Ortho clearance. Getting another PRBC transfusion. HnH in the night and AM. CBC, BMP in am (3) Chronic anemia: Anemia chronic disease Pre-op Hgb: 7.2. Was 7.8 on 12/11/2021. Nephrology had recommended transfusion 1 unit PRBC if Hgb less than 7.5 in past s/p 2 unit PRBC transfusion Monitor H&H (4) ESRD (end stage renal disease): HD on Friday schedule Last HD this morning, 01/11/2022 Nephrology consult for assistance with HD (5) Diabetes mellitus, type 2: A1c: 7.8 on 11/13/2021 Basal bolus insulin per protocol (6) Paroxysmal atrial fibrillation: Current sinus rhythm with auscultation Continue amiodarone, metoprolol succinate Eliquis -- see above. (7) Hypertension: Continue current metoprolol succinate Previously on other BP medications however since started dialysis is not required (8) Peripheral arterial disease: Continue aspirin, atorvastatin (9) Hypothyroidism: Continue levothyroxine (10) SUKHWINDER (obstructive sleep apnea): Does not use CPAP DVT Prophylaxis -On Eliquis Disposition: per primary team. Pending ID eval. Admission and Anticipated Discharge Date Admission Date: January 11, 2022 Subjective Patient seen and examined at bedside as a follow-up of wound dehiscence, left lower extremity amputation stump. Patient was lying in bed, on 2 L nasal cannula oxygen, NAD, no new acute events overnight per patient.Undergoing HD. Patient denies any fever/headache/dizziness/chest pain/wheezing/cough/shortness of breath/belly pain/acute changes in bowel or bladder habits. Patient reports eating okay. Physical Exam Physical Exam: GENERAL: Alert and oriented x3. NAD, on 2L NC O2. Obese. HEENT: + pallor, no icterus. Pupils equal, round and reactive to light. Oral mucosa moist. NECK: No JVD, no neck masses. Right chest with HD catheter in situ noted. HEART: S1 and S2 heard. Regular rate and rhythm. No murmur, no gallop. RESPIRATORY SYSTEM: Normal AP diameter. No accessory muscle use. No wheezing, no crackles. ABDOMEN: Soft, bowel sounds present, nontender, no distention. CENTRAL NERVOUS SYSTEM: No facial droop. Speech is clear. Obeys simple commands. Moves extremities. EXTREMITIES: RLE with chronic skin changes noted, LLE BKA with clean dressing with serosanguinous soakage. Results & Data Results & Data ([facility]) Vital Signs (Past 12 Hours) Vital Signs Temp Pulse Pulse Pulse Resp BP BP 01/14/22 17:04 37.1 C 73 16 88/44 L 01/14/22 16:48 36.9 C 71 18 109/58 L 01/14/22 15:00 36.8 C 69 16 01/14/22 12:31 36.7 C 78 101/64 01/14/22 12:00 67 83/45 L 01/14/22 11:30 66 95/64 L 01/14/22 11:00 67 95/63 L 01/14/22 10:30 66 80/49 L 01/14/22 10:00 67 92/52 L 01/14/22 09:30 68 80/49 L 01/14/22 09:00 72 112/67 01/14/22 08:56 36.6 C 72 01/14/22 08:00 110/64 01/14/22 07:23 37.1 C 75 16 109/49 L BP Pulse Ox 01/14/22 17:04 93 01/14/22 16:48 01/14/22 15:00 95/50 L 92 01/14/22 12:31 01/14/22 12:00 01/14/22 11:30 01/14/22 11:00 01/14/22 10:30 01/14/22 10:00 01/14/22 09:30 01/14/22 09:00 01/14/22 08:56 01/14/22 08:00 01/14/22 07:23 94
[2022-01-14] MEDS ORDERED: MIDODRINE HCL 2.5 MG TAB PO ONE (17:30)
[2022-01-14] MEDS: NUT TX IMPAIRED RENAL FXN SOY PO SCH (19:06)
[2022-01-14] MEDS: LATANOPROST 0.005% OP SOLN 2.5 ML BTL OP SCH (21:40)
[2022-01-14] MEDS: oxyCODONE HCL IR 5 MG TAB (IMMEDIATE RELEASE) PO PRN (21:43)
[2022-01-14 21:50] LABS: Hematocrit (blood only) 24.4 % (42-52)
[2022-01-15] MEDS: PIPERACILLIN/TAZOBACTAM 4.5 GM in DEXTROSE 5% 100 ML IV SCH ×2 (03:41→15:09)
[2022-01-15] MEDS: LEVOTHYROXINE SODIUM 50 MCG TABLET PO SCH (03:42)
[2022-01-15] MEDS: ACETAMINOPHEN 500 MG TAB PO SCH ×3 (06:07→20:52)
[2022-01-15] MEDS: METOPROLOL SUCC 50MG EXT REL TAB PO SCH (07:44)
[2022-01-15] MEDS: allopurinoL 100 MG TAB PO SCH (07:44)
[2022-01-15] MEDS: CALCITRIOL 0.25 MCG CAPSULE PO SCH ×2 (07:44→20:54)
[2022-01-15] MEDS: MULTIVITAMIN TAB PO SCH (07:44)
[2022-01-15] MEDS: DOCUSATE SODIUM 100 MG CAP PO SCH ×2 (07:44→20:53)
[2022-01-15] MEDS: CALCIUM ACETATE 667 MG CAP/TAB PO SCH ×3 (07:45→17:30)
[2022-01-15] MEDS: BRIMONIDINE TARTRATE-P 0.15% 5 ML BTL OPB SCH ×2 (07:45→20:55)
[2022-01-15] MEDS: AMIODARONE 200 MG TAB PO SCH ×2 (07:45→20:53)
[2022-01-15] MEDS: ASPIRIN 81 MG ECTAB PO SCH (07:45)
[2022-01-15 07:57] LABS: Hematocrit (blood only) 24.9 % (42-52); Hemoglobin 7.9 g/dL (14.0-18.0); Mean Corpuscular Hemoglobin 29.5 pg (25-34); Mean Corpuscular Hgb Conc 31.7 g/dL (32-36); Mean Corpuscular Volume 92.9 fL (80-100); Mean Platelet Volume 9.5 fL (7.4-10.4); Platelet Count 121 K/uL (130-400); RDW Coefficient of Variation 18.5 % (11.5-14.5); RDW Standard Deviation 61.8 fL (36.4-46.3); Red Blood Count 2.68 M/uL (4.7-6.1); White Blood Count 7.14 K/uL (4.8-10.8)
[2022-01-15] MEDS: INSULIN GLARGINE SOLOSTAR 100 UNITS/ML 3 ML PEN SC SCH ×2 (08:27→20:52)
[2022-01-15] MEDS: INSULIN ASPART PER UNIT SC SCH ×5 (08:31→20:53)
--- NOTE | 2022-01-15 08:51 | Orthopedic Progress Note ---
Date of Service January 15, 2022 Assessment & Plan (1) Wound dehiscence, surgical: Plan: 71 yo male stable POD #4 s/p revision left BKA 1. Med management- cont IV abx, HD 2. DVT prophylaxis- Eliquis on hold due to wound drainage/bleeding, SCDs 3. PT/OT 4. D/C planning- d/c to [facility] when stable for dc 5. Bloody drainage appears under control. Continue daily dressing changes. Continue to hold Apixaban. 6. 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 Admission and Anticipated Discharge Date Admission Date: January 11, 2022 Subjective POD 4 Nursing staff present and states patient had moderate bleeding/drainage on the dressing. Had to be changed 4 times. Pt was seen by Joshua Mccrary PA-C yesterday. Some bloody drainage noted. Pt without complaints this AM. Nursing states Apixaban held yesterday. Dressing reinforced. Physical Exam Physical Exam: Pt's current dressing was from yesterday. Reinforced with ABD's/kerlix. Small amount of bloody drainage noted on the archie wrap. All dressings removed. Wound appears benign. Blister noted below the incison. No active bleeding currently. Staple line intact. Wound redressed with adaptic/4x4's/ABD's/kerlix/ and archie wrap. Results & Data ([facility]) Vital Signs (Past 12 Hours) Vital Signs Temp Pulse Resp BP Pulse Ox 01/15/22 07:19 37.1 C 66 16 144/72 H 97 01/15/22 03:44 37.1 C 69 19 130/66 96 01/14/22 21:38 37.4 C 70 16 122/65 94 Laboratory Results 01/15/22 01/15/22 01/15/22 Range/Units 07:30 07:30 07:30 WBC 7.14 (4.8-10.8) K/uL RBC 2.68 L (4.7-6.1) M/uL Hgb 7.9 L (14.0-18.0) g/dL Hct 24.9 L (42-52) % MCV 92.9 (80-100) fL MCH 29.5 (25-34) pg MCHC 31.7 L (32-36) g/dL RDW Std Deviation 61.8 H (36.4-46.3) fL RDW Coeff of Millie 18.5 H (11.5-14.5) % Plt Count 121 L (130-400) K/uL MPV 9.5 (7.4-10.4) fL Sodium Pending Potassium Pending Chloride Pending Carbon Dioxide Pending Anion Gap Pending BUN Pending Creatinine Pending Est Cr Clr Drug Dosing Pending Est GFR ( Amer) Pending Est GFR (Non-Af Amer) Pending BUN/Creatinine Ratio Pending Glucose Pending POC Glucose 132 H (70-99) mg/dl Calcium Pending Total Creatine Kinase (30-223) U/L Blood Type Antibody Screen Crossmatch 01/14/22 01/14/22 01/14/22 Range/Units 21:23 20:27 17:08 WBC (4.8-10.8) K/uL RBC (4.7-6.1) M/uL Hgb 8.0 L (14.0-18.0) g/dL Hct 24.4 L (42-52) % MCV (80-100) fL MCH (25-34) pg MCHC (32-36) g/dL RDW Std Deviation (36.4-46.3) fL RDW Coeff of Millie (11.5-14.5) % Plt Count (130-400) K/uL MPV (7.4-10.4) fL Sodium Potassium Chloride Carbon Dioxide Anion Gap BUN Creatinine Est Cr Clr Drug Dosing Est GFR ( Amer) Est GFR (Non-Af Amer) BUN/Creatinine Ratio Glucose POC Glucose 93 101 H (70-99) mg/dl Calcium Total Creatine Kinase (30-223) U/L Blood Type Antibody Screen Crossmatch 01/14/22 01/14/22 01/14/22 Range/Units 13:56 12:33 12:33 WBC (4.8-10.8) K/uL RBC (4.7-6.1) M/uL Hgb (14.0-18.0) g/dL Hct (42-52) % MCV (80-100) fL MCH (25-34) pg MCHC (32-36) g/dL RDW Std Deviation (36.4-46.3) fL RDW Coeff of Millie (11.5-14.5) % Plt Count (130-400) K/uL MPV (7.4-10.4) fL Sodium Potassium Chloride Carbon Dioxide Anion Gap BUN Creatinine Est Cr Clr Drug Dosing Est GFR ( Amer) Est GFR (Non-Af Amer) BUN/Creatinine Ratio Glucose POC Glucose 102 H 102 H (70-99) mg/dl Calcium Total Creatine Kinase (30-223) U/L Blood Type O Positive Antibody Screen NEGATIVE Crossmatch See Detail 01/14/22 Range/Units 06:36 WBC (4.8-10.8) K/uL RBC (4.7-6.1) M/uL Hgb (14.0-18.0) g/dL Hct (42-52) % MCV (80-100) fL MCH (25-34) pg MCHC (32-36) g/dL RDW Std Deviation (36.4-46.3) fL RDW Coeff of Millie (11.5-14.5) % Plt Count (130-400) K/uL MPV (7.4-10.4) fL Sodium Potassium Chloride Carbon Dioxide Anion Gap BUN Creatinine Est Cr Clr Drug Dosing Est GFR ( Amer) Est GFR (Non-Af Amer) BUN/Creatinine Ratio Glucose POC Glucose (70-99) mg/dl Calcium Total Creatine Kinase 53 (30-223) U/L Blood Type Antibody Screen Crossmatch
--- NOTE | 2022-01-15 09:03 | Nephrology Progress Note ---
Date of Service January 15, 2022 Assessment & Plan (1) ESRD (end stage renal disease): Plan: * ESKD on HD. Volume status and electrolyte balance are acceptable. No acute indication for HD today * Hyperphosphatemia noted. Phos-Lo 667 mg two capsules po w/ each meal has been started * Will need AVF creation as outpatient (2) Hypertension: Plan: * Requires Metoprolol for rate control of atrial fibrillation (3) Anemia: Plan: * 2 units PRBC provided 01/12/22. Transfusion held during 2nd unit due to hypotension * 01/13/22 Iron saturation > 20%. Will provide ROBERTH w/ HD tomorrow Admission and Anticipated Discharge Date Admission Date: January 11, 2022 Subjective Mr. Arias was evaluated in his hospital room this morning. He denied pain involving his BKA revision site. He reports drainage from his L BKA site req uiring frequent dressing changes Review of Systems Constitutional: no fever Eyes: no worsening vision Ear, Nose, Mouth, Throat: no problem reported Respiratory: no cough and no dyspnea Cardiovascular: no chest pain, no palpitations and no edema Gastrointestinal: no abdominal pain Neurologic: no confusion Physical Exam Constitutional: + morbidly obese Eyes: PERRL, conjunctivae normal, anicteric sclerae ENMT: external ear and nose normal, oropharynx normal Neck: trachea midline, no thyromegaly Respiratory: normal respiratory effort, lungs clear to auscultation Cardiovascular: Rate/Rhythm: regular rate and regular rhythm Gastrointestinal (Abdomen): normal bowel sounds, soft, nontender, no hepatosplenomegaly Musculoskeletal: L BKA site w/ clean, dry dressing in place Neurologic: awake; not confused Results & Data ([facility]) Vital Signs (Past 12 Hours) Vital Signs Temp Pulse Resp BP Pulse Ox 01/15/22 07:19 37.1 C 66 16 144/72 H 97 01/15/22 03:44 37.1 C 69 19 130/66 96 01/14/22 21:38 37.4 C 70 16 122/65 94 Laboratory Results Laboratory Tests 01/12/22 01/13/22 01/15/22 07:56 05:37 07:30 WBC 7.14 Hgb 7.9 L Hct 24.9 L Plt Count 121 L Sodium 137 Potassium 4.4 D Chloride 98 Carbon Dioxide 31 BUN 32 H Creatinine 4.45 H D Glucose 116 H Calcium 8.4 L Magnesium 1.8 Transferrin % Sat 23 Ferritin 327.0 PG Care Time/CCT Total # of Minutes Spent Total Time Spent with Patient: Total time spent is greater than 50% in coordination of care (as documented) at patient's floor/unit and/or counseling patient: Coding Level of Care Code 48219 Subseq Hosp Care Lvl 3 Diagnoses ESRD (end stage renal disease) N18.6 Hypertension I10 Hypertension type: essential hypertension Anemia N18.6; D63.1; Z99.2 Anemia type: due to chronic kidney disease Chronic kidney disease stage: on chronic dialysis (1) Anemia Anemia type: due to chronic kidney disease Chronic kidney disease stage: on chronic dialysis Qualified Code(s): N18.6 - End stage renal disease; D63.1 - Anemia in chronic kidney disease; Z99.2 - Dependence on renal dialysis (2) Hypertension Hypertension type: essential hypertension Qualified Code(s): I10 - Essential (primary) hypertension
[2022-01-15 09:50] LABS: BUN Creatinine Ratio 5.8 (10-20); Creatinine Clr Calc Pharmacy 15.3 ml/min; Est GFR (African American) 11.3 ml/min; Est GFR (Non-African American) 9.7 ml/min; Potassium 3.6 mmol/L (3.5-5.1)
--- NOTE | 2022-01-15 17:16 | Hospitalist Progress Note ---
Date of Service January 15, 2022 Assessment & Plan (1) Wound of left lower extremity: Plan: (1) S/P BKA (below knee amputation): (2) Wound dehiscence, surgical: #. Acute blood loss anemia on chronic anemia, likely postoperative Post op day# 3 S/P revision left BKA by Dr Jay. EBL# 20ml Pain management/wound management/PT OT/DVT prophylaxis per Ortho. Incentive spirometer, on IV atb zosyn 01/11 and dapto 01/11 01/12 SBP dropped by more than 20 mmHg during second unit of PRBC transfusion of this hospital stay, his 3 blood pressure readings during the blood transfusion were in 70s/ 40s. Patient did not have any fever/urticaria/wheezing/dyspnea/ belly pain/other review of symptoms. Blood transfusion was held. Work-up in the line of hemolysis and septic reactions were sent, except for few test that is skewed given the fact that he is a hemodialysis patient, other test came negative for transfusion reaction. Some are pending as of 01/13. Follow-up 4- hour later with no new symptoms. Follow-up blood and wound cultures-->negative growth so far, continue with antibiotics. Will consult ID. monitor H&H for acute blood loss anemia; pre-op Hgb: 7.2. s/p 3 units (1 unit on 01/12 was not completed, see above) D/t ongoing serosanguineous drainage from the operative site as of 01/14, held eliquis 01/14, will resume with Ortho clearance. HnH 7.9. HnH in AM. Monitor as needed. (3) Chronic anemia: Anemia chronic disease Pre-op Hgb: 7.2. Was 7.8 on 12/11/2021. Nephrology had recommended transfusion 1 unit PRBC if Hgb less than 7.5 in past s/p 3 unit PRBC transfusion Monitor H&H (4) ESRD (end stage renal disease): HD on Friday schedule Nephrology consult for assistance with HD (5) Diabetes mellitus, type 2: A1c: 7.8 on 11/13/2021 Basal bolus insulin per protocol (6) Paroxysmal atrial fibrillation: Current sinus rhythm with auscultation Continue amiodarone, metoprolol succinate Eliquis -- see above. (7) Hypertension: Continue current metoprolol succinate Previously on other BP medications however since started dialysis is not required (8) Peripheral arterial disease: Continue aspirin, atorvastatin (9) Hypothyroidism: Continue levothyroxine (10) SUKHWINDER (obstructive sleep apnea): Does not use CPAP DVT Prophylaxis -On Eliquis Disposition: per primary team. Pending ID [email or web address] [email or web address]. Admission and Anticipated Discharge Date Admission Date: January 11, 2022 Subjective Patient seen and examined at bedside as a follow-up of wound dehiscence, left lower extremity amputation stump. Patient was lying in bed, on 2 L nasal cannula oxygen, NAD, no new acute events overnight per patient.Serosanguineous discharge at BKA stump revision site decreasing. Patient denies any fever/headache/dizziness/chest pain/wheezing/cough/shortness of breath/belly pain/acute changes in bowel or bladder habits. Patient reports eating okay. Physical Exam Physical Exam: GENERAL: Alert and oriented x3. NAD, on 2L NC O2. Obese. HEENT: + pallor, no icterus. Pupils equal, round and reactive to light. Oral mucosa moist. NECK: No JVD, no neck masses. Right chest with HD catheter in situ noted. HEART: S1 and S2 heard. Regular rate and rhythm. No murmur, no gallop. RESPIRATORY SYSTEM: Normal AP diameter. No accessory muscle use. No wheezing, no crackles. ABDOMEN: Soft, bowel sounds present, nontender, no distention. CENTRAL NERVOUS SYSTEM: No facial droop. Speech is clear. Obeys simple commands. Moves extremities. EXTREMITIES: RLE with chronic skin changes noted, LLE BKA with clean dressing without serosanguinous soakage. Results & Data Results & Data ([facility]) Vital Signs (Past 12 Hours) Vital Signs Temp Pulse Resp BP Pulse Ox 01/15/22 15:15 36.9 C 62 20 111/64 95 01/15/22 07:19 37.1 C 66 16 144/72 H 97
[2022-01-15] MEDS: DAPTOmycin 525 MG in SYRINGE 0 ML IV SCH (20:52)
[2022-01-15] MEDS: LATANOPROST 0.005% OP SOLN 2.5 ML BTL OP SCH (20:55)
[2022-01-15] MEDS: NUT TX IMPAIRED RENAL FXN SOY PO SCH (20:55)
[2022-01-16] MEDS: PIPERACILLIN/TAZOBACTAM 4.5 GM in DEXTROSE 5% 100 ML IV SCH ×2 (04:41→15:24)
[2022-01-16] MEDS: ACETAMINOPHEN 500 MG TAB PO SCH ×3 (05:42→22:48)
[2022-01-16] MEDS: LEVOTHYROXINE SODIUM 50 MCG TABLET PO SCH (05:43)
[2022-01-16] MEDS ORDERED: SODIUM CHLORIDE 0.9% 1000ML 1,000 ML IV PRN (07:00)
[2022-01-16] MEDS ORDERED: EPOETIN ALFA 10,000 UNITS/ML VIAL IV ONE (07:00)
--- NOTE | 2022-01-16 08:23 | Orthopedic Progress Note ---
Date of Service January 16, 2022 Assessment & Plan (1) Wound dehiscence, surgical: Plan: 71 yo male stable POD #5 s/p revision left BKA 1. Med management- cont IV abx, HD 2. DVT prophylaxis- Eliquis on hold due to wound drainage/bleeding, SCDs. He may be able to restart his Eliquis in the next day or two. 3. PT/OT 4. D/C planning- d/c to [facility] when stable for dc--may be able to discharge back to [facility] today after dialysis and if medically stable. 5. Dressing change today. 6. 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 Admission and Anticipated Discharge Date Admission Date: January 11, 2022 Subjective Doing well today. States there is little to no pain within the left BKA stump. He has not had any drainage through his bandage since dressing change yesterday. Physical Exam Constitutional: well developed and well nourished; no acute distress ENMT: external ear and nose normal, oropharynx normal Neck: trachea midline Respiratory: normal respiratory effort and + respiratory distress Auscultation: lungs clear to auscultation bilaterally Cardiovascular: Rate/Rhythm: regular rate and regular rhythm Gastrointestinal (Abdomen): normal bowel sounds, soft, nontender, no hepatosplenomegaly Musculoskeletal: Well approximated left BKA site. All isa in place. No evidence of any wound breakdown. Small, stable blister distal to the incision. Neurologic: + abnormal touch/pain/proprioception Psychiatric: A+Ox3, euthymic affect Speech: normal rate/rhythm/volume of speech Results & Data ([facility]) Vital Signs (Past 12 Hours) Vital Signs Temp Pulse Pulse Resp BP Pulse Ox 01/16/22 07:48 36.8 C 68 18 128/66 97 01/15/22 22:08 37.1 C 57 L 18 106/57 L 99
--- NOTE | 2022-01-16 08:27 | Nephrology Progress Note ---
Date of Service January 16, 2022 Assessment & Plan (1) ESRD (end stage renal disease): Plan: * Heparin free HD today. Orders have been entered into EMR and HD RN notified * Hyperphosphatemia noted. Phos-Lo 667 mg two capsules po w/ each meal has been started * Will need AVF creation as outpatient (2) Hypertension: Plan: * Requires Metoprolol for rate control of atrial fibrillation (3) Anemia: Plan: * 2 units PRBC provided 01/12/22. Transfusion held during 2nd unit due to hypotension * 01/13/22 Iron saturation > 20%. Will provide ROBERTH w/ HD today Admission and Anticipated Discharge Date Admission Date: January 11, 2022 Subjective Mr. Arias was evaluated in his hospital room this morning. He denied pain involving his BKA revision site. He reports that nursing staff has just changed his L BKA dressing Review of Systems Constitutional: no fever Eyes: no worsening vision Ear, Nose, Mouth, Throat: no problem reported Respiratory: no cough and no dyspnea Cardiovascular: no chest pain, no palpitations and no edema Gastrointestinal: no abdominal pain Neurologic: no confusion Physical Exam Constitutional: + morbidly obese Eyes: PERRL, conjunctivae normal, anicteric sclerae ENMT: external ear and nose normal, oropharynx normal Neck: trachea midline, no thyromegaly Respiratory: normal respiratory effort, lungs clear to auscultation Cardiovascular: Rate/Rhythm: regular rate and regular rhythm Gastrointestinal (Abdomen): normal bowel sounds, soft, nontender, no hepato splenomegaly Neurologic: awake; not confused Results & Data ([facility]) Vital Signs (Past 12 Hours) Vital Signs Temp Pulse Pulse Resp BP Pulse Ox 01/16/22 07:48 36.8 C 68 18 128/66 97 01/15/22 22:08 37.1 C 57 L 18 106/57 L 99 Laboratory Results Laboratory Tests 01/12/22 07:56 Sodium 137 Potassium 4.4 D Chloride 98 Carbon Dioxide 31 BUN 32 H Creatinine 4.45 H D Glucose 116 H Calcium 8.4 L Magnesium 1.8 Laboratory Tests 01/12/22 01/16/22 01/16/22 07:56 09:30 09:30 WBC 7.58 Hgb 7.9 L Hct 24.8 L Plt Count 130 Sodium 137 138 Potassium 4.4 D 3.9 Chloride 98 101 Carbon Dioxide 31 24 BUN 32 H 41 H Creatinine 4.45 H D 7.59 H* D Glucose 116 H 146 H Calcium 8.4 L 9.6 Magnesium 1.8 PG Care Time/CCT Total # of Minutes Spent Total Time Spent with Patient: Total time spent is greater than 50% in coordination of care (as documented) at patient's floor/unit and/or counseling patient: Coding Level of Care Code 07627 Subseq Hosp Care Lvl 3 Diagnoses ESRD (end stage renal disease) N18.6 Hypertension I10 Hypertension type: essential hypertension Anemia N18.6; D63.1; Z99.2 Anemia type: due to chronic kidney disease Chronic kidney disease stage: on chronic dialysis (1) Anemia Anemia type: due to chronic kidney disease Chronic kidney disease stage: on chronic dialysis Qualified Code(s): N18.6 - End stage renal disease; D63.1 - Anemia in chronic kidney disease; Z99.2 - Dependence on renal dialysis (2) Hypertension Hypertension type: essential hypertension Qualified Code(s): I10 - Essential (primary) hypertension
[2022-01-16] MEDS: ASPIRIN 81 MG ECTAB PO SCH (09:36)
[2022-01-16] MEDS: BRIMONIDINE TARTRATE-P 0.15% 5 ML BTL OPB SCH ×2 (09:36→20:23)
[2022-01-16] MEDS: INSULIN ASPART PER UNIT SC SCH ×4 (09:36→20:34)
[2022-01-16] MEDS: allopurinoL 100 MG TAB PO SCH (09:36)
[2022-01-16] MEDS: CALCIUM ACETATE 667 MG CAP/TAB PO SCH ×3 (09:36→17:10)
[2022-01-16] MEDS: AMIODARONE 200 MG TAB PO SCH ×2 (09:36→20:23)
[2022-01-16] MEDS: CALCITRIOL 0.25 MCG CAPSULE PO SCH ×2 (09:36→20:23)
[2022-01-16] MEDS: MULTIVITAMIN TAB PO SCH (09:37)
[2022-01-16] MEDS: INSULIN GLARGINE SOLOSTAR 100 UNITS/ML 3 ML PEN SC SCH ×2 (09:37→20:35)
[2022-01-16] MEDS: DOCUSATE SODIUM 100 MG CAP PO SCH ×2 (09:37→20:23)
[2022-01-16] MEDS: METOPROLOL SUCC 50MG EXT REL TAB PO SCH (09:37)
[2022-01-16 09:42] LABS: Hematocrit (blood only) 24.8 % (42-52); Hemoglobin 7.9 g/dL (14.0-18.0); Mean Corpuscular Hemoglobin 29.7 pg (25-34); Mean Corpuscular Hgb Conc 31.9 g/dL (32-36); Mean Corpuscular Volume 93.2 fL (80-100); Mean Platelet Volume 9.3 fL (7.4-10.4); Platelet Count 130 K/uL (130-400); RDW Standard Deviation 60.7 fL (36.4-46.3); Red Blood Count 2.66 M/uL (4.7-6.1); White Blood Count 7.58 K/uL (4.8-10.8)
[2022-01-16 10:19] LABS: BUN Creatinine Ratio 5.4 (10-20); Calcium 9.6 mg/dl (8.5-10.1); Creatinine Clr Calc Pharmacy 11.1 ml/min; Est GFR (African American) 7.6 ml/min; Est GFR (Non-African American) 6.6 ml/min; Potassium 3.9 mmol/L (3.5-5.1)
--- NOTE | 2022-01-16 19:36 | Hospitalist Progress Note ---
Date of Service January 16, 2022 Assessment & Plan (1) Wound of left lower extremity: Plan: (1) S/P BKA (below knee amputation): (2) Wound dehiscence, surgical: #. Acute blood loss anemia on chronic anemia, likely postoperative Post op day# 3 S/P revision left BKA by Dr Jay. EBL# 20ml Pain management/wound management/PT OT/DVT prophylaxis per Ortho. Incentive spirometer, on IV atb zosyn 01/11 and dapto 01/11 01/12 SBP dropped by more than 20 mmHg during second unit of PRBC transfusion of this hospital stay, his 3 blood pressure readings during the blood transfusion were in 70s/ 40s. Patient did not have any fever/urticaria/wheezing/dyspnea/ belly pain/other review of symptoms. Blood transfusion was held. Work-up in the line of hemolysis and septic reactions were sent, except for few test that is skewed given the fact that he is a hemodialysis patient, other test came negative for transfusion reaction. Some are pending as of 01/13. Follow-up 4- hour later with no new symptoms. Follow-up blood and wound cultures-->negative growth so far, continue with antibiotics. ID consulted. monitor H&H for acute blood loss anemia; pre-op Hgb: 7.2. s/p 3 units (1 unit on 01/12 was not completed, see above) D/t ongoing serosanguineous drainage from the operative site as of 01/14, held eliquis 01/14, will resume with Ortho clearance. HnH 7.9. HnH in AM. Monitor as needed. (3) Chronic anemia: Anemia chronic disease Pre-op Hgb: 7.2. Was 7.8 on 12/11/2021. Nephrology had recommended transfusion 1 unit PRBC if Hgb less than 7.5 in past s/p 3 unit PRBC transfusion Monitor H&H (4) ESRD (end stage renal disease): HD on Friday schedule Nephrology consult for assistance with HD (5) Diabetes mellitus, type 2: A1c: 7.8 on 11/13/2021 Basal bolus insulin per protocol (6) Paroxysmal atrial fibrillation: Current sinus rhythm with auscultation Continue amiodarone, metoprolol succinate Eliquis -- see above. (7) Hypertension: Continue current metoprolol succinate Previously on other BP medications however since started dialysis is not required (8) Peripheral arterial disease: Continue aspirin, atorvastatin (9) Hypothyroidism: Continue levothyroxine (10) SUKHWINDER (obstructive sleep apnea): Does not use CPAP DVT Prophylaxis -Eliquis on hold until cleared by ortho Disposition: per primary team. Pending ID eval. Admission and Anticipated Discharge Date Admission Date: January 11, 2022 Subjective Patient seen and examined at bedside as a follow-up of wound dehiscence, left lower extremity amputation stump. Patient was lying in bed, on 2 L nasal cannula oxygen, NAD, no new acute events overnight per patient. Patient denies any fever/headache/dizziness/chest pain/wheezing/cough/shortness of breath/belly pain/acute changes in bowel or bladder habits. Patient reports eating okay. Physical Exam Physical Exam: GENERAL: Alert and oriented x3. NAD, on 2L NC O2. Obese. HEENT: + pallor, no icterus. Pupils equal, round and reactive to light. Oral mucosa moist. NECK: No JVD, no neck masses. Right chest with HD catheter in situ noted. HEART: S1 and S2 heard. Regular rate and rhythm. No murmur, no gallop. RESPIRATORY SYSTEM: Normal AP diameter. No accessory muscle use. No wheezing, no crackles. ABDOMEN: Soft, bowel sounds present, nontender, no distention. CENTRAL NERVOUS SYSTEM: No facial droop. Speech is clear. Obeys simple commands. Moves extremities. EXTREMITIES: RLE with chronic skin changes noted, LLE BKA with clean dressing without serosanguinous soakage. Results & Data Results & Data ([facility]) Vital Signs (Past 12 Hours) Vital Signs Temp Pulse Pulse Resp BP BP Pulse Ox 01/16/22 13:41 36.9 C 70 18 130/60 99 01/16/22 13:23 36.8 C 65 119/59 L 01/16/22 12:30 66 123/72 01/16/22 12:00 65 124/71 01/16/22 11:30 65 144/72 H 01/16/22 11:00 66 105/75 01/16/22 10:30 63 111/52 L 01/16/22 10:00 64 130/74 01/16/22 09:41 36.8 C 67 01/16/22 07:48 36.8 C 68 18 128/66 97
[2022-01-16] MEDS: LATANOPROST 0.005% OP SOLN 2.5 ML BTL OP SCH (20:23)
[2022-01-16] MEDS: NUT TX IMPAIRED RENAL FXN SOY PO SCH (20:24)
[2022-01-16] MEDS: CARBOHYDRATES FOR HYPOGLYCEMIA PO PRN ×2 (20:33→20:58)
[2022-01-17] MEDS: PIPERACILLIN/TAZOBACTAM 4.5 GM in DEXTROSE 5% 100 ML IV SCH (04:55)
[2022-01-17] MEDS: LEVOTHYROXINE SODIUM 50 MCG TABLET PO SCH (04:56)
[2022-01-17] MEDS: ACETAMINOPHEN 500 MG TAB PO SCH ×3 (04:58→21:15)
[2022-01-17] MEDS: CALCITRIOL 0.25 MCG CAPSULE PO SCH ×2 (08:39→21:10)
[2022-01-17] MEDS: METOPROLOL SUCC 50MG EXT REL TAB PO SCH (08:40)
[2022-01-17] MEDS: MULTIVITAMIN TAB PO SCH (08:40)
[2022-01-17] MEDS: BRIMONIDINE TARTRATE-P 0.15% 5 ML BTL OPB SCH ×2 (08:40→21:09)
[2022-01-17] MEDS: allopurinoL 100 MG TAB PO SCH (08:40)
[2022-01-17] MEDS: AMIODARONE 200 MG TAB PO SCH ×2 (08:40→21:10)
[2022-01-17] MEDS: ASPIRIN 81 MG ECTAB PO SCH (08:40)
[2022-01-17] MEDS: DOCUSATE SODIUM 100 MG CAP PO SCH ×2 (08:40→21:09)
[2022-01-17] MEDS: CALCIUM ACETATE 667 MG CAP/TAB PO SCH ×3 (08:40→17:34)
[2022-01-17] MEDS: INSULIN GLARGINE SOLOSTAR 100 UNITS/ML 3 ML PEN SC SCH ×2 (08:42→21:11)
[2022-01-17] MEDS: INSULIN ASPART PER UNIT SC SCH ×4 (08:45→21:11)
--- NOTE | 2022-01-17 08:46 | Nephrology Progress Note ---
Date of Service January 17, 2022 Assessment & Plan (1) ESRD (end stage renal disease): Plan: * Volume status and electrolyte balance are acceptable. No acute indication for HD today * Continue Phos-Lo 667 mg two capsules po w/ each meal to correct hyperphosphatemia * Continue Nephrocap one daily * Will need AVF creation as outpatient (2) Hypertension: Plan: * Requires Metoprolol for rate control of atrial fibrillation (3) Anemia: Plan: * 2 units PRBC provided 01/12/22. Transfusion held during 2nd unit due to hypotension * 01/13/22 Iron saturation > 20%. Will provide ROBERTH w/ HD treatments Admission and Anticipated Discharge Date Admission Date: January 11, 2022 Subjective Mr. Arias was evaluated in his hospital room this morning. He denied pain involving his BKA revision site. He voiced no new medical concerns Review of Systems Constitutional: no fever Eyes: no worsening vision Ear, Nose, Mouth, Throat: no problem reported Respiratory: no cough and no dyspnea Cardiovascular: no chest pain, no palpitations and no edema Gastrointestinal: no abdominal pain Neurologic: no confusion Physical Exam Constitutional: + morbidly obese Eyes: PERRL, conjunctivae normal, anicteric sclerae ENMT: external ear and nose normal, oropharynx normal Neck: trachea midline, no thyromegaly Respiratory: normal respiratory effort, lungs clear to auscultation Cardiovascular: Rate/Rhythm: regular rate and regular rhythm Gastrointestinal (Abdomen): normal bowel sounds, soft, nontender, no hepatosplenomegaly Musculoskeletal: L BKA w/ clean dry dressing Neurologic: awake; not confused Results & Data ([facility]) Vital Signs (Past 12 Hours) Vital Signs Temp Pulse Resp BP Pulse Ox 01/17/22 07:46 37.2 C 76 18 145/74 H 96 01/16/22 22:23 36.9 C 66 18 103/53 L 99 Laboratory Results Laboratory Tests 01/12/22 01/17/22 01/17/22 07:56 08:59 08:59 WBC 7.67 Hgb 8.5 L Hct 26.4 L Plt Count 153 Sodium 137 138 Potassium 4.4 D 3.7 Chloride 98 102 Carbon Dioxide 31 26 BUN 32 H 27 H Creatinine 4.45 H D 5.67 H* D Glucose 116 H 149 H Calcium 8.4 L 9.8 Magnesium 1.8 PG Care Time/CCT Total # of Minutes Spent Total Time Spent with Patient: Total time spent is greater than 50% in coordination of care (as documented) at patient's floor/unit and/or counseling patient: Coding Level of Care Code 76337 Subseq Hosp Care Lvl 3 Diagnoses ESRD (end stage renal disease) N18.6 Hypertension I10 Hypertension type: essential hypertension Anemia N18.6; D63.1; Z99.2 Anemia type: due to chronic kidney disease Chronic kidney disease stage: on chronic dialysis (1) Anemia Anemia type: due to chronic kidney disease Chronic kidney disease stage: on chronic dialysis Qualified Code(s): N18.6 - End stage renal disease; D63.1 - Anemia in chronic kidney disease; Z99.2 - Dependence on renal dialysis (2) Hypertension Hypertension type: essential hypertension Qualified Code(s): I10 - Essential (primary) hypertension
[2022-01-17 09:33] LABS: Hematocrit (blood only) 26.4 % (42-52); Hemoglobin 8.5 g/dL (14.0-18.0); Mean Corpuscular Hgb Conc 32.2 g/dL (32-36); Mean Corpuscular Volume 96.4 fL (80-100); Mean Platelet Volume 9.8 fL (7.4-10.4); Platelet Count 153 K/uL (130-400); Red Blood Count 2.74 M/uL (4.7-6.1); White Blood Count 7.67 K/uL (4.8-10.8)
[2022-01-17 09:46] LABS: BUN Creatinine Ratio 4.8 (10-20); Calcium 9.8 mg/dl (8.5-10.1); Creatinine Clr Calc Pharmacy 14.6 ml/min; Est GFR (African American) 10.9 ml/min; Est GFR (Non-African American) 9.4 ml/min; Potassium 3.7 mmol/L (3.5-5.1)
--- NOTE | 2022-01-17 10:39 | Orthopedic Progress Note ---
Date of Service January 17, 2022 Assessment & Plan (1) Wound dehiscence, surgical: Plan: 71 yo male stable POD #6 s/p revision left BKA 1. Med management- cont IV abx, HD; infectious disease consult pending 2. DVT prophylaxis- Eliquis on hold due to wound drainage/bleeding, SCDs. No further needs for reinforcing the dressing. No overt drainage. Consider restarting Eliquis this evening or tomorrow AM if ok with Med Service. 3. PT/OT 4. D/C planning- d/c to [facility] when stable for dc--may be able to discharge back to [facility] today after dialysis and if medically stable. 5. Daily dressing changes. 6. 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 Admission and Anticipated Discharge Date Admission Date: January 11, 2022 Subjective Postop day 6 Patient resting comfortably in his bed. No complaints. Pain is controlled. Discussed that hospital service has consulted infectious disease service and may take 24 to 48 hours to arrange. Patient understands. Physical Exam Physical Exam: Dressings removed. Staple line is intact. No overt drainage. Small blister below the staple line of remains intact. No overt erythema. The flap itself appears possibly bit duskier today compared to the last time I saw it. No pain on palpation. Results & Data ([facility] [place]) Vital Signs (Past 12 Hours) Vital Signs Temp Pulse Resp BP Pulse Ox 01/17/22 07:46 37.2 C 76 18 145/74 H 96
[2022-01-17] MEDS ORDERED: VANCOMYCIN CONSULT ACTIVE PRN (16:50)
[2022-01-17] MEDS ORDERED: VANCOMYCIN HCL 2,250 MG in SODIUM CHLORIDE 0.9% 500 ML IV ONE (16:50)
--- NOTE | 2022-01-17 17:02 | Hospitalist Progress Note ---
Date of Service January 17, 2022 Assessment & Plan (1) Wound of left lower extremity: Plan: (1) S/P BKA (below knee amputation): (2) Wound dehiscence, surgical: #. Acute blood loss anemia on chronic anemia, likely postoperative 01/11 S/P revision left BKA by Dr Jay. EBL# 20ml Pain management/wound management/PT OT/DVT prophylaxis per Ortho. Incentive spirometer, on IV atb zosyn 01/11 and dapto 01/11 01/12 SBP dropped by more than 20 mmHg during second unit of PRBC transfusion of this hospital stay, his 3 blood pressure readings during the blood transfusion were in 70s/ 40s. Patient did not have any fever/urticaria/wheezing/dyspnea/belly pain/other review of symptoms. Blood transfusion was held. Work-up in the line of hemolysis and septic reactions were sent, except for few test that is skewed given the fact that he is a hemodialysis patient, other test came negative for transfusion reaction. Some are pending as of 01/13. Follow-up 4-hour later with no new symptoms. Follow-up blood and wound cultures--> 01/11 operative wound culture positive for Enterococcus. ID evaluated: Discontinue daptomycin, vancomycin dosed per pharmacy with HD 3 times weekly, total of 6 weeks from operative day which is 01/11 to 02/21/2022. Weekly CBC, BMP and vancomycin levels while on antibiotic. Follow-up with ID in 3 to 4 weeks. monitor H&H for acute blood loss anemia; pre-op Hgb: 7.2. s/p 3 units (1 unit on 01/12 was not completed, see above) D/t ongoing serosanguineous drainage from the operative site as of 01/14, held eliquis 01/14, will resume with Ortho clearance --> resuming Eliquis from 01/17 evening. HnH 8.5, HnH in AM. Monitor as needed. (3) Chronic anemia: Anemia chronic disease Pre-op Hgb: 7.2. Was 7.8 on 12/11/2021. Nephrology had recommended transfusion 1 unit PRBC if Hgb less than 7.5 in past s/p 3 unit PRBC transfusion Monitor H&H (4) ESRD (end stage renal disease): HD on Friday schedule Nephrology consult for assistance with HD (5) Diabetes mellitus, type 2: A1c: 7.8 on 11/13/2021 Basal bolus insulin per protocol (6) Paroxysmal atrial fibrillation: Current sinus rhythm with auscultation Continue amiodarone, metoprolol succinate Eliquis -- see above. (7) Hypertension: Continue current metoprolol succinate Previously on other BP medications however since started dialysis is not required (8) Peripheral arterial disease: Continue aspirin, atorvastatin (9) Hypothyroidism: Continue levothyroxine (10) SUKHWINDER (obstructive sleep apnea): Does not use CPAP DVT Prophylaxis -Eliquis on hold until cleared by ortho Disposition: per primary team. Discharge recommendation, follow-up with primary care physician and ID along with the primary team [orthopedics] as an outpatient. Vancomycing upto 02/21/22. Get blood work CBC, BMP and vancomycin weekly while on antibiotic. Okay to discharge from medical point of view. Admission and Anticipated Discharge Date Admission Date: January 11, 2022 Subjective Patient seen and examined at bedside as a follow-up of wound dehiscence, left lower extremity amputation stump. Patient was lying in bed, on 1 L nasal cannula oxygen, NAD, no new acute events overnight per patient. Patient denies any fever/headache/dizziness/chest pain/wheezing/cough/shortness of breath/belly pain/acute changes in bowel or bladder habits. Patient reports eating okay. Physical Exam Physical Exam: GENERAL: Alert and oriented x3. NAD, on 1L NC O2. Obese. HEENT: + pallor, no icterus. Pupils equal, round and reactive to light. Oral mucosa moist. NECK: No JVD, no neck masses. Right chest with HD catheter in situ noted. HEART: S1 and S2 heard. Regular rate and rhythm. No murmur, no gallop. RESPIRATORY SYSTEM: Normal AP diameter. No accessory muscle use. No wheezing, no crackles. ABDOMEN: Soft, bowel sounds present, nontender, no distention. CENTRAL NERVOUS SYSTEM: No facial droop. Speech is clear. Obeys simple commands. Moves extremities. EXTREMITIES: RLE with chronic skin changes noted, LLE BKA with clean dressing without serosanguinous soakage. Results & Data Results & Data ([facility]) Vital Signs (Past 12 Hours) Vital Signs Temp Pulse Resp BP Pulse Ox 01/17/22 15:31 36.9 C 65 18 121/68 98 01/17/22 07:46 37.2 C 76 18 145/74 H 96
[2022-01-17] MEDS ORDERED: VANCOMYCIN HCL 2,000 MG in SODIUM CHLORIDE 0.9% 500 ML IV ONE (17:15)
[2022-01-17] MEDS ORDERED: diphenhydrAMINE 50 MG/ML VIAL IV STA (18:00)
[2022-01-17] MEDS ORDERED: FAMOTIDINE 20 MG in SYRINGE 3 ML IV ONE (18:15)
[2022-01-17] MEDS: LATANOPROST 0.005% OP SOLN 2.5 ML BTL OP SCH (21:09)
[2022-01-17] MEDS: NUT TX IMPAIRED RENAL FXN SOY PO SCH (21:11)
[2022-01-17] MEDS: APIXABAN 5 MG TABLET PO SCH (21:38)
[2022-01-18] MEDS: ACETAMINOPHEN 500 MG TAB PO SCH ×2 (05:45→14:33)
[2022-01-18] MEDS: LEVOTHYROXINE SODIUM 50 MCG TABLET PO SCH (05:46)
[2022-01-18] MEDS ORDERED: EPOETIN ALFA 10,000 UNITS/ML VIAL IV ONE (07:00)
[2022-01-18] MEDS ORDERED: SODIUM CHLORIDE 0.9% 1000ML 1,000 ML IV PRN (07:00)
[2022-01-18 07:01] LABS: Hematocrit (blood only) 25.4 % (42-52); Hemoglobin 8.1 g/dL (14.0-18.0)
[2022-01-18] MEDS: MULTIVITAMIN TAB PO SCH (07:54)
[2022-01-18] MEDS: CALCITRIOL 0.25 MCG CAPSULE PO SCH (07:54)
[2022-01-18] MEDS: allopurinoL 100 MG TAB PO SCH (07:54)
[2022-01-18] MEDS: CALCIUM ACETATE 667 MG CAP/TAB PO SCH ×2 (07:55→13:25)
[2022-01-18] MEDS: DOCUSATE SODIUM 100 MG CAP PO SCH (07:55)
[2022-01-18] MEDS: ASPIRIN 81 MG ECTAB PO SCH (07:55)
[2022-01-18] MEDS: APIXABAN 5 MG TABLET PO SCH (07:55)
[2022-01-18] MEDS: BRIMONIDINE TARTRATE-P 0.15% 5 ML BTL OPB SCH (07:56)
[2022-01-18] MEDS: INSULIN ASPART PER UNIT SC SCH ×2 (08:41→13:27)
[2022-01-18] MEDS: INSULIN GLARGINE SOLOSTAR 100 UNITS/ML 3 ML PEN SC SCH (08:41)
--- NOTE | 2022-01-18 08:49 | Nephrology Progress Note ---
Date of Service January 18, 2022 Assessment & Plan (1) ESRD (end stage renal disease): Plan: * HD today - orders have been entered into EMR and HD RN notified * Continue Phos-Lo 667 mg two capsules po w/ each meal to correct hyperphosphatemia * Continue Nephrocap one daily * Will need AVF creation as outpatient (2) Hypertension: Plan: * Requires Metoprolol for rate control of atrial fibrillation (3) Anemia: Plan: * 2 units PRBC provided 01/12/22. Transfusion held during 2nd unit due to hypotension * 01/13/22 Iron saturation > 20%. Will provide ROBERTH w/ HD treatments (4) S/P BKA (below knee amputation): Plan: * Awaiting ID input for antibiotic management Admission and Anticipated Discharge Date Admission Date: January 11, 2022 Subjective Mr. Arias was evaluated prior to HD this morning. He denied pain involving his BKA revision site. He voiced no new medical concerns Review of Systems 2 Constitutional: no fever Eyes: no worsening vision Ear, Nose, Mouth, Throat: no problem reported Respiratory: no cough and no dyspnea Cardiovascular: no chest pain, no palpitations and no edema Gastrointestinal: no abdominal pain Neurologic: no confusion Physical Exam Constitutional: + morbidly obese Eyes: PERRL, conjunctivae normal, anicteric sclerae ENMT: external ear and nose normal, oropharynx normal Neck: trachea midline, no thyromegaly Respiratory: normal respiratory effort, lungs clear to auscultation Cardiovascular: Rate/Rhythm: regular rate and regular rhythm Gastrointestinal (Abdomen): normal bowel sounds, soft, nontender, no hepatosplenomegaly Neurologic: awake; not confused Results & Data ([facility]) Vital Signs (Past 12 Hours) Vital Signs Temp Pulse Resp BP Pulse Ox 01/18/22 07:39 37.0 C 67 16 157/77 H 90 01/17/22 21:48 37.0 C 62 18 113/57 L 95 Laboratory Results Laboratory Tests 01/12/22 01/18/22 07:56 06:36 Hgb 8.1 L Hct 25.4 L Sodium 137 Potassium 4.4 D Chloride 98 Carbon Dioxide 31 BUN 32 H Creatinine 4.45 H D Glucose 116 H Calcium 8.4 L Magnesium 1.8 PG Care Time/CCT Total # of Minutes Spent Total Time Spent with Patient: Total time spent is greater than 50% in coordination of care (as documented) at patient's floor/unit and/or counseling patient: Coding Level of Care Code 73075 Subseq Hosp Care Lvl 3 Diagnoses ESRD (end stage renal disease) N18.6 Hypertension I10 Hypertension type: essential hypertension Anemia N18.6; D63.1; Z99.2 Anemia type: due to chronic kidney disease Chronic kidney disease stage: on chronic dialysis S/P BKA (below knee amputation) Z89.519 (1) Anemia Anemia type: due to chronic kidney disease Chronic kidney disease stage: on chronic dialysis Qualified Code(s): N18.6 - End stage renal disease; D63.1 - Anemia in chronic kidney disease; Z99.2 - Dependence on renal dialysis (2) Hypertension Hypertension type: essential hypertension Qualified Code(s): I10 - Essential (primary) hypertension
--- NOTE | 2022-01-18 09:50 | Pharmacy Report ---
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 BKA in November 2021, returned 01/10 for wound dehiscence and underwent revision of left BKA on 01/11 * Pertinent microbiologic data includes: 01/11 surgical culture growing E. faecalis (guillaume-sensitive except for gent synergy). * ID consulted - recommended vancomycin x6 weeks until 02/21/22 (unless the En terococcus isolated was VRE. Has since resulted non-VRE per above) * Ampicillin would normally be preferred over vancomycin, but given ID recommendation and also ease of thrice-weekly outpatient dosing with HD, ongoing vancomycin is reasonable * Nephrology following - HD in process today Vancomycin * Dosing via level for HD * Events * 01/17 1734: Vancomycin 2000 mg IV x1 * 01/18 0636: Vancomycin random level 17.5 mcg/mL * 01/18: HD ongoing Plan * Vancomycin 750 mg IV x1 after HD * Random level with AM labs Pharmacy will continue to follow and will adjust dose/frequency as necessary. Thank you.
--- NOTE | 2022-01-18 11:56 | Orthopedic Progress Note ---
Date of Service January 18, 2022 Assessment & Plan (1) Wound dehiscence, surgical: Plan: 71 yo male stable POD #7 s/p revision left BKA 1. Med management- cont IV abx, HD; 01/11 operative wound culture positive for Enterococcus. ID evaluated:Discontinue daptomycin, vancomycin dosed per pharmacy with HD 3 times weekly, total of 6 weeks from operative day which is 01/11 to 02/21/2022. Weekly CBC, BMP and vancomycin levels while on antibiotic. Follow-up with ID in 3 to 4 weeks. 2. DVT prophylaxis- Eliquis on hold due to wound drainage/bleeding, SCDs. No further needs for reinforcing the dressing. No overt drainage. Consider restarting Eliquis this evening or tomorrow AM if ok with Med Service. 3. PT/OT 4. D/C planning-if transportation is arranged, the patient will discharge back to [facility] today once his dialysis is completed. 5. Daily dressing changes. Admission and Anticipated Discharge Date Admission Date: January 11, 2022 Subjective Doing well today with the left BKA site. No pain complaints. No new complaints. Physical Exam Constitutional: well developed and well nourished; no acute distress (Patient is sitting comfortably receiving dialysis.) ENMT: external ear and nose normal, oropharynx normal Neck: trachea midline Respiratory: normal respiratory effort and + respiratory distress Auscultation: lungs clear to auscultation bilaterally Cardiovascular: Rate/Rhythm: regular rate and regular rhythm Gastrointestinal (Abdomen): normal bowel sounds, soft, nontender, no hepatosplenomegaly Musculoskeletal: Left BKA site: Dressing is clean/dry/intact. Dressing left in place since the patient is at dialysis. Neurologic: + abnormal touch/pain/proprioception Psychiatric: A+Ox3, euthymic affect Speech: normal rate/rhythm/volume of speech Results & Data ([facility]) Vital Signs (Past 12 Hours) Vital Signs Temp Pulse Pulse Pulse Resp BP BP 01/18/22 11:00 62 90/51 L 01/18/22 10:40 62 93/53 L 01/18/22 10:20 63 81/45 L 01/18/22 10:00 64 87/58 L 01/18/22 09:40 64 92/57 L 01/18/22 09:20 63 100/61 01/18/22 08:50 37.0 C 65 01/18/22 07:39 37.0 C 67 16 157/77 H Pulse Ox 01/18/22 11:00 01/18/22 10:40 01/18/22 10:20 01/18/22 10:00 01/18/22 09:40 01/18/22 09:20 01/18/22 08:50 01/18/22 07:39 90
[2022-01-18] MEDS ORDERED: VANCOMYCIN HCL 750 MG in SODIUM CHLORIDE 0.9% 250 ML IV ONE (12:00)
[2022-01-18] MEDS: AMIODARONE 200 MG TAB PO SCH (13:24)
[2022-01-18] MEDS: METOPROLOL SUCC 50MG EXT REL TAB PO SCH (13:25)
--- NOTE | 2022-01-18 16:50 | Hospitalist Progress Note ---
Date of Service January 18, 2022 Assessment & Plan (1) Wound of left lower extremity: Plan: (1) S/P BKA (below knee amputation): (2) Wound dehiscence, surgical: #. Acute blood loss anemia on chronic anemia, likely postoperative 01/11 S/P revision left BKA by Dr Jay. EBL# 20ml Pain management/wound management/PT OT/DVT prophylaxis per Ortho. Incentive spirometer, on IV atb zosyn 01/11 and dapto 01/11 01/12 SBP dropped by more than 20 mmHg during second unit of PRBC transfusion of this hospital stay, his 3 blood pressure readings during the blood transfusion were in 70s/ 40s. Patient did not have any fever/urticaria/wheezing/dyspnea/belly pain/other review of symptoms. Blood transfusion was held. Work-up in the line of hemolysis and septic reactions were sent, except for few test that is skewed given the fact that he is a hemodialysis patient, other test came negative for transfusion reaction. Some are pending as of 01/13. Follow-up 4-hour later with no new symptoms. Follow-up blood and wound cultures--> 01/11 operative wound culture positive for Enterococcus. ID evaluated 01/17: Discontinue daptomycin, vancomycin dosed per pharmacy with HD 3 times weekly, total of 6 weeks from operative day which is 01/11 to 02/21/2022. Weekly CBC, BMP and vancomycin levels while on antibiotic. Follow-up with ID in 3 to 4 weeks. Rediscussed with ID 01/18 due to additional growth in 01/11 wound culture, metronidazole added for total of 6 weeks starting 01/18/2022. Updated primary team, sent metronidazole to patient's pharmacy. monitor H&H for acute blood loss anemia; pre-op Hgb: 7.2. s/p 3 units (1 unit on 01/12 was not completed, see above) D/t ongoing serosanguineous drainage from the operative site as of 01/14, held eliquis 01/14, will resume with Ortho clearance --> resumed Eliquis from 01/17 evening. HnH 8.5, HnH in AM. Monitor as needed. Patient to get weekly labs and monitor for hemoglobin level. (3) Chronic anemia: Anemia chronic disease Pre-op Hgb: 7.2. Was 7.8 on 12/11/2021. Nephrology had recommended transfusion 1 unit PRBC if Hgb less than 7.5 in past s/p 3 unit PRBC transfusion Monitor H&H (4) ESRD (end stage renal disease): HD on Friday schedule Nephrology consult for assistance with HD (5) Diabetes mellitus, type 2: A1c: 7.8 on 11/13/2021 Basal bolus insulin per protocol (6) Paroxysmal atrial fibrillation: Current sinus rhythm with auscultation Continue amiodarone, metoprolol succinate Eliquis -- see above. (7) Hypertension: Continue current metoprolol succinate Previously on other BP medications however since started dialysis is not required (8) Peripheral arterial disease: Continue aspirin, atorvastatin (9) Hypothyroidism: Continue levothyroxine (10) SUKHWINDER (obstructive sleep apnea): Does not use CPAP DVT Prophylaxis -Eliquis on hold until cleared by ortho Disposition: per primary team. Discharge recommendation, follow-up with primary care physician and ID along with the primary team [orthopedics] as an outpatient. Vancomycin upto 02/21/22. Metronidazole 500 mg 3 times a day for 6 weeks starting 01/18/2022. Get blood work CBC, BMP and vancomycin weekly while on antibiotic. Okay to discharge from medical point of view. Admission and Anticipated Discharge Date Admission Date: January 11, 2022 Subjective Patient seen and examined at bedside as a follow-up of wound dehiscence, left lower extremity amputation stump. Patient was undergoing hemodialysis, on room air, NAD, no new acute events overnight per patient. Patient denies any fever/headache/dizziness/chest pain/wheezing/cough/shortness of breath/belly pain/acute changes in bowel or bladder habits. Patient reports eating okay. Physical Exam Physical Exam: GENERAL: Alert and oriented x3. NAD, on room air. Obese. HEENT: + pallor, no icterus. Pupils equal, round and reactive to light. Oral mucosa moist. NECK: No JVD, no neck masses. Right chest with HD catheter in situ noted. HEART: S1 and S2 heard. Regular rate and rhythm. No murmur, no gallop. RESPIRATORY SYSTEM: Normal AP diameter. No accessory muscle use. No wheezing, no crackles. ABDOMEN: Soft, bowel sounds present, nontender, no distention. CENTRAL NERVOUS SYSTEM: No facial droop. Speech is clear. Obeys simple commands. Moves extremities. EXTREMITIES: RLE with chronic skin changes noted, LLE BKA with clean dressing without serosanguinous soakage. Results & Data Results & Data ([facility]) Vital Signs (Past 12 Hours) Vital Signs Temp Pulse Pulse Pulse Resp BP BP 01/18/22 13:44 36.9 C 68 16 98/61 L 01/18/22 12:40 37.0 C 62 01/18/22 12:20 63 94/59 L 01/18/22 12:00 63 100/65 01/18/22 11:40 62 103/55 L 01/18/22 11:20 62 99/53 L 01/18/22 11:00 62 90/51 L 01/18/22 10:40 62 93/53 L 01/18/22 10:20 63 81/45 L 01/18/22 10:00 64 87/58 L 01/18/22 09:40 64 92/57 L 01/18/22 09:20 63 100/61 01/18/22 08:50 37.0 C 65 01/18/22 07:39 37.0 C 67 16 157/77 H BP Pulse Ox 01/18/22 13:44 95 01/18/22 12:40 108/68 01/18/22 12:20 01/18/22 12:00 01/18/22 11:40 01/18/22 11:20 01/18/22 11:00 01/18/22 10:40 01/18/22 10:20 01/18/22 10:00 01/18/22 09:40 01/18/22 09:20 01/18/22 08:50 01/18/22 07:39 90
[2022-01-18] MEDS ORDERED: metroNIDAZOLE 500 MG TAB PO SCH (21:00)
[2022-01-19 05:56] LABS: HBSAG NON-REACTIVE (NON-REACTIVE); Hepatitis B Surface Ab, Quant 15 mIU/mL (> OR = 10)
--- NOTE | 2022-01-22 11:00 | Discharge Summary ---
Date of Service January 22, 2022 Admission HPI Per Admitting Provider This is a patient known undergone a left below the knee amputation on November 17, 2021. The wound has been monitored after discharge from the hospital. However, the wound failed to progress. He had wound dehiscence throughout the flap. He is now being set up for revision amputation. Admission Exam Per Admitting Provider Physical Exam Constitutional: well developed and well nourished; no acute distress ENMT: external ear and nose normal, oropharynx normal Neck: trachea midline Respiratory: normal respiratory effort and + respiratory distress Auscultation: lungs clear to auscultation bilaterally Cardiovascular: Rate/Rhythm: regular rate and regular rhythm Gastrointestinal (Abdomen): normal bowel sounds, soft, nontender, no hepatos plenomegaly Musculoskeletal: Left BKA: Wound dehiscence at the central portion of the wound. Mild erythema. Moderate drainage. Neurologic: + abnormal touch/pain/proprioception Psychiatric: A+Ox3, euthymic affect Speech: normal rate/rhythm/volume of speech Principal Diagnosis Left BKA wound dehiscence Discharge Data Allergies Allergy/AdvReac Type Severity Reaction Status Date / Time metformin Allergy Intermediate Diarrhea Verified 01/11/22 11:38 isosorbide Allergy Mild Rash Verified 01/11/22 11:38 lisinopril Allergy Unknown Unknown Verified 01/11/22 11:38 vancomycin AdvReac Intermediate Redness of Verified 01/17/22 18:11 Skin Consultations 01/11/22 18:22 Consult Hospitalist Routine Consult Nephrology Routine 01/14/22 17:17 Consult Infectious Diseases Routine Procedures Performed Operation Date: 01/11/22 14:55 Actual Procedures p Left Below Knee Amputation Revision(Left) - Joselito Jay DO Ordered Studies 01/11/22 05:00 US - OR guided needle placemen Routine Hospital Course (1) Wound dehiscence, surgical: Patient was admitted on the above-noted date with the above-noted diagnosis. He was taken to the operating room and revision of his BKA flap was performed. Postoperatively, [facility] hospitalist service and [facility] nephrology service was consulted secondary to patient's comorbidities. Patient was continued on IV antibiotics of which were mainly managed by [facility] hospitalist service. Patient was continued on daily dressing changes. Patient was notably anemic upon admission and was transfused several units of PRBCs during his stay. Over the next several days patient had an increase in noted drainage from his wound. This was felt to be bloody drainage secondary from his use of apixaban. His apixaban was held and compression dressings were continued to be changed. When I examined the patient by postop before, his wound was appearing benign. He had a small skin blister noted below the incision. He had no active bleeding. Staple line was intact. Apixaban was held for another 24 to 48 hours and was then restarted per medicine service. Hospitalist service consulted infectious disease team for input on antibiotics for the patient. Cultures at the time were continued to be no growth to date however at the time of discharge, the patient was noted to be growing an Enterococcus species as well as an anaerobic gram - bacilli species. Antibiotics were altered accordingly. He was continued on his regular regimen for dialysis. This was managed by [facility] nephrology. Patient was then restarted on his apixaban and continued remained stable. He was thusly transferred to [facility] for further care. Please see chart for further information. Total Time Total Time Spent Total Time Spent (In Minutes): 10 Discharge Plan Discharge Items Patient Disposition: Transfer Long-Term Fac Reason For Visit: Left Knee Ulcer, Non-healing wound Discharge Diagnosis: Left BKA non healing wound Activity: Per Instructions section Weightbearing: Left non-weightbearing Non-emergency contact: Surgeon Call non-emergency contact if: your pain is not controlled, your temperature is above 101.5, your wound has increased redness and your wound has increased drainage Follow-up/Referrals: Joselito Jay DO [Surgeon] - (follow up with Dr Jay in one week. ) [place] [Primary Care Provider] - Diet: Carb Consistent or DM2 and Dialysis Renal Addtl Attending Provider Instructions: Non weight bearing on the left bka stump Daily dressing changes. May be dry dressing changes if there is no drainage. If continued drainage, consider Adaptic cut to the size of the incision before applying gauze. Please call the office if you experience a temperature of 101.5 or greater, increased drainage, redness, or swelling of the wound/stump Follow up with Dr Jay in 1 week. Please call for an appointment. [phone] Addtl [place] [employer] Provider Instructions: Vancomycin dosed per pharmacy with hemodialysis 3 times weekly for total of 6 weeks up to 02/21/2022. You were also started on metronidazole 500 mg 3 times a day for total of 6 weeks starting 01/18/2022. Weekly CBC, BMP and vancomycin levels while on antibiotic. Follow-up with infectious disease doctor in 3 to 4 weeks. Follow-up with your primary care physician within 1 week time. Pending Studies at Discharge: No Stand-Alone Forms: My [facility] Skilled Items Patient informed of condition?: Yes DNR: No Discharge Level of Care: Skilled Communicable Disease: No Discharge Prognosis: Stable Lines: None Urinary Catheter: No Medications and DC Order Prescriptions: New acetaminophen [Tylenol Extra Strength] 500 mg Tablet 1,000 mg PO Q8 14 Days Qty: 84 RF: 0 metronidazole 500 mg tablet 500 mg PO TID 42 Days Qty: 126 RF: 0 Continued (DME) pen needle, diabetic [BD Ultra-Fine Mini Pen Needle] 31 gauge x 3/16" needle See Dose Instructions .ROUTE .MEDSUPPLY Qty: 100 RF: 5 atorvastatin 40 mg tablet 40 mg PO DAILY Qty: 90 RF: 3 diphenoxylate-atropine [Lomotil] 2.5-0.025 mg tablet 1 tab PO QID PRN (Reason: diarrhea) Qty: 60 RF: 5 aspirin [Adult Low Dose Aspirin] 81 mg tablet,delayed release (DR/EC) 81 mg PO DAILY Qty: 90 RF: 3 latanoprost 0.005 % drops 1 drp ophthalmic (eye) HS RF: 0 loperamide [Imodium A-D] 2 mg Capsule 2 mg PO Q4H PRN (Reason: Diarrhea) RF: 0 levothyroxine 50 mcg Tablet 50 mcg PO DAILY RF: 0 brimonidine 0.15 % drops 1 drp OPB BID RF: 0 calcitriol 0.5 mcg capsule 0.5 mcg PO BID RF: 0 insulin glargine [Lantus Solostar U-100 Insulin] 100 unit/mL (3 mL) Insulin Pen 6 unit SC BID Qty: 15 RF: 0 amiodarone 200 mg Tablet 200 mg PO BID RF: 0 bisacodyl [Dulcolax (bisacodyl)] 10 mg Suppository 10 mg IN DAILY PRN (Reason: Constipation) RF: 0 Fleet Enema 19-7 gram/118 mL Enema 118 ml IN DAILY PRN (Reason: Constipation) RF: 0 docusate sodium 100 mg Tablet 100 mg PO BID RF: 0 nut.tx.impaired renal fxn,soy Liquid 1 ea PO QPM RF: 0 melatonin 5 mg Tablet 5 mg PO HS PRN (Reason: Sleep) RF: 0 Eliquis 5 mg Tablet 5 mg PO BID RF: 0 metoprolol succinate 100 mg tablet extended release 24 hr 100 mg PO DAILY RF: 0 allopurinol 100 mg tablet 100 mg PO DAILY RF: 0 Discontinued cephalexin [Keflex] 500 mg Capsule 500 mg PO QID RF: 0 Discharge Orders: Discharge Order (Routine); Ordered 01/18/22 Ordered By: Alfa Villatoro Admission Data Admit Date/Time: 01/11/22 17:22 Attending Provider: Pedro Eller Admit Provider: Joselito Jay Primary Care Provider: [place] Other Providers: Jaun Shrestha ; Shant Cohen I. ; Chandler Preciado ; Navin Wayne Other Interventions: Discharge Summary Assessment (RN) Last Done: 01/18/22 14:43
== END 2022-01-18 16:00 | DRG 474 ==
LOC: ASU 10:12 → 3E 17:22
DX: N18.6 End stage renal disease; Z89.512 Acquired absence of left leg below knee; T87.81 Dehiscence of amputation stump; Z79.82 Long term (current) use of aspirin; E11.43 Type 2 diabetes mellitus with diabetic autonomic (poly)neuropathy; E11.22 Type 2 diabetes mellitus with diabetic chronic kidney disease; L97.829 Non-pressure chronic ulcer of other part of left lower leg with unspecified severity; Z79.4 Long term (current) use of insulin; E11.319 Type 2 diabetes mellitus with unspecified diabetic retinopathy without macular edema; Z87.891 Personal history of nicotine dependence; Z99.2 Dependence on renal dialysis; Z99.81 Dependence on supplemental oxygen; Z20.822 Contact with and (suspected) exposure to COVID-19; G47.33 Obstructive sleep apnea (adult) (pediatric); Z79.899 Other long term (current) drug therapy; I48.0 Paroxysmal atrial fibrillation; I96 Gangrene, not elsewhere classified; B95.2 Enterococcus as the cause of diseases classified elsewhere; D62 Acute posthemorrhagic anemia; Z88.8 Allergy status to other drugs, medicaments and biological substances; E11.52 Type 2 diabetes mellitus with diabetic peripheral angiopathy with gangrene; I12.0 Hypertensive chronic kidney disease with stage 5 chronic kidney disease or end stage renal disease; Z79.890 Hormone replacement therapy; D63.8 Anemia in other chronic diseases classified elsewhere; E11.622 Type 2 diabetes mellitus with other skin ulcer; Z68.35 Body mass index [BMI] 35.0-35.9, adult; M10.9 Gout, unspecified; Y83.5 Amputation of limb(s) as the cause of abnormal reaction of the patient, or of later complication, without mention of misadventure at the time of the procedure; Z01.812 Encounter for preprocedural laboratory examination; E66.01 Morbid (severe) obesity due to excess calories; Z83.3 Family history of diabetes mellitus; M65.162 Other infective (teno)synovitis, left knee; E78.5 Hyperlipidemia, unspecified; Z82.49 Family history of ischemic heart disease and other diseases of the circulatory system; E83.39 Other disorders of phosphorus metabolism; T87.44 Infection of amputation stump, left lower extremity; Z79.01 Long term (current) use of anticoagulants; E03.9 Hypothyroidism, unspecified